=== PATIENT | female | born 1970 | race Caucasian/White ===

== ENCOUNTER 2022-12-06 12:45 | Emergency (ER) | payer SELFPAY ==
[2022-12-06 12:52] VITALS: BP 147/108; PULSE 78; RESP 16; TEMP 36.4; O2SAT 100; BMI 40.4
--- NOTE | 2022-12-06 13:04 | ED.SKABFB1 ---
HPI - Skin/Abscess/Foreign Bdy General Chief complaint: Skin/Abscess/Foreign Body Stated complaint: LUMP BEHIND EAR Time Seen by Provider: 12/06/22 13:03 Source: patient Mode of arrival: walk-in Limitations: no limitations History of Present Illness HPI narrative: Patient presents to emergency department complaining of right ear lump. She states there was a lump behind her ear that began on Tuesday. She states this is becoming more tender and larger. Patient denies any ear pain or any upper respiratory infection symptoms. 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 She denies any fever, headaches, chills, or sore throat. She has not applied anything to it or taken anything. Related Data Home Medications Medication Instructions Recorded Confirmed gabapentin 600 mg tablet 600 mg PO TID 12/06/22 12/06/22 levothyroxine 137 mcg tablet 137 mcg PO DAILY 12/06/22 12/06/22 (Levo-T) omeprazole 40 mg capsule,delayed 40 mg PO DAILY 12/06/22 12/06/22 release tizanidine 4 mg capsule 4 mg PO Q8H 12/06/22 12/06/22 Previous Rx's Medication Instructions Recorded mupirocin 2 % topical ointment 1 applic topical TID #15 grams 12/06/22 sulfamethoxazole 800 1 tab PO BID 7 days #14 tabs 12/06/22 mg-trimethoprim 160 mg tablet (Bactrim DS) Allergies Allergy/AdvReac Type Severity Reaction Status Date / Time Penicillins Allergy Severe Hives Verified 12/06/22 12:52 Review of Systems ROS Status of ROS 10 or more systems reviewed and unremarkable except as noted in history and below Exam Narrative Exam Narrative: Nurses notes and vital signs reviewed and patient is not hypoxic. General: Nontoxic, Well-appearing and in no apparent distress. Skin: Warm, dry, no pallor noted. No Rash Head: Normocephalic, atraumatic. Neck: Supple, non-tender. Eye: Pupils are equal, round and EOMI. No scleral icterus. Ears, Nose, Mouth, and Throat: TM clear, no posterior oropharynx erythema or nasal mucosal hypertrophy, uvula is mid-line Oral mucosa is moist, Right 4 mm pustule to the posterior auricle. There is no mastoid tenderness. No signs of cellulitis. Cardiovascular: Regular Rate and Rhythm without murmur, gallop or rub. Respiratory: No accessory muscle use or respiratory distress. Lungs are clear to auscultation, no wheezing, rales or rhonchi Chest Wall: no tenderness Back: No midline thoracic or lumbar vertebral tenderness. No CVA tenderness Musculoskeletal: normal ROM, no calf or popliteal tenderness, no lower extremity edema/swelling GI: Abdomen is soft, non-distended. Normal bowel sounds. No masses appreciated. No tenderness to palpation. No rebound, guarding, or rigidity noted. Neurological: A&O x4. No cranial nerve dysfunction observed. No truncal ataxia. Moves all extremities. Sensation intact. Psychiatric: Cooperative and interactive. Normal mood and affect. Constitutional Vital Signs - 24 hr 12/06/22 12:52 Temperature 97.5 F L Pulse Rate [Monitor] 78 Respiratory Rate 16 Blood Pressure [Left Arm] 147/108 H Pulse Oximetry 100 Oxygen Delivery Method Room Air Course Vital Signs Vital signs: Vital Signs Temperature 97.5 F L 12/06/22 12:52 Pulse Rate 78 12/06/22 12:52 Respiratory Rate 16 12/06/22 12:52 Blood Pressure 147/108 H 12/06/22 12:52 Pulse Oximetry 100 12/06/22 12:52 Oxygen Delivery Method Room Air 12/06/22 12:52 Temperature 97.5 F L 12/06/22 12:52 Pulse Rate 78 12/06/22 12:52 Respiratory Rate 16 12/06/22 12:52 Blood Pressure 147/108 H 12/06/22 12:52 Pulse Oximetry 100 12/06/22 12:52 Oxygen Delivery Method Room Air 12/06/22 12:52 MDM - Skin/Abscess/Foreign Bdy MDM Narrative Medical decision making narrative: She was advised to do warm compresses to the area. Apply mupirocin and given a prescription for Bactrim. I answered all questions. Discussed discharge instructions including standard anticipatory guidance and what should prompt a return to the emergency department, including if they get worse are not getting better or develops any new or concerning symptoms. I've given them specific time frame in which to follow-up, and who to follow-up with. The patient demonstrates understanding. Patient is nontoxic and stable for discharge with outpatient follow-up. This note was created with the assistance of a speech recognition program. Although the intention is to generate documents that actually reflects the content of the visit, no guarantees can be provided that every mistake has been identified and corrected by editing. Differential Diagnosis Differential diagnosis: Likely abscess of skin or subcutaneous tissue and cellulitis Discharge Plan Discharge Chief Complaint: Skin/Abscess/Foreign Body Clinical Impression: Pustule Patient Disposition: Home, Self-Care Time of Disposition Decision: 13:11 Condition: Good Mode of Transportation: Private Vehicle Prescriptions / Home Meds: New mupirocin 2 % ointment 1 applic topical TID Qty: 15 0RF sulfamethoxazole-trimethoprim [Bactrim DS] 800-160 mg tablet 1 tab PO BID 7 Days Qty: 14 0RF No Action omeprazole 40 mg capsule,delayed release(DR/EC) 40 mg PO DAILY levothyroxine [Levo-T] 137 mcg tablet 137 mcg PO DAILY tizanidine 4 mg capsule 4 mg PO Q8H gabapentin 600 mg tablet 600 mg PO TID Instructions: Folliculitis (ED) Stand Alone Forms: Portal Instructions Referrals: Bartolo Kwan MD [Primary Care Provider] - 1 week Discharge Date/Time: 12/06/22 13:25
== END 2022-12-06 13:25 | disposition home or self-care (01) ==
PROVIDERS: Emergency Provider Emergency Medicine; PCP Family Medicine
DX: L08.9 Local infection of the skin and subcutaneous tissue, unspecified (principal); Z79.899 Other long term (current) drug therapy; Z79.890 Hormone replacement therapy
CPT/HCPCS: 99283

== ENCOUNTER 2023-05-13 08:00 | Outpatient (OUT) | payer BC, SELFPAY ==
[2023-05-13 08:28] LABS: Basophils Absolute Auto 0.1 10^3/uL (0.0-0.1); Basophils Percent Auto 0.6 % (0.2-2.0); Eosinophils Absolute Auto 0.1 10^3/uL (0.0-0.7); Eosinophils Percent Auto 1.2 % (0.9-7.0); Hematocrit 43.9 % (36.0-48.0); Hemoglobin 14.1 g/dL (12.0-16.0); Immature Granulocytes Abs Auto 0.02 10^3/uL (0.00-0.03); Immature Granulocytes Pct Auto 0.2 % (0.0-0.5); Lymphocytes Percent Auto 30.7 % (20.5-60.0); Mean Corpuscular HGB Conc 32.1 g/dL (29.9-35.2); Mean Corpuscular Hemoglobin 31.1 pg (26.7-34.0); Mean Corpuscular Volume 96.9 fL (81.0-99.0); Mean Platelet Volume 9.7 fL (9.5-13.5); Monocytes Absolute Auto 0.7 10^3/uL (0.3-0.8); Monocytes Percent Auto 6.9 % (1.7-12.0); Neutrophils Absolute Auto 5.9 10^3/uL (1.4-6.5); Neutrophils Percent Auto 60.4 % (43.0-75.0); Platelet Count 298 10^3/uL (150-450); Red Blood Count 4.53 10^6/uL (4.20-5.40); Red Cell Distribution Width 14.5 % (11.0-15.0); White Blood Count 9.8 10^3/uL (4.0-11.0)
[2023-05-13 09:44] LABS: Alanine Aminotransferase 19 U/L (14-59); Albumin Globulin Ratio 0.9; Albumin Level 3.4 g/dL (3.4-5.0); Alkaline Phosphatase 78 U/L (46-116); Anion Gap 15.2; Aspartate Amino Transferase 9 U/L (15-37); BUN Creatinine Ratio 22.7; Bilirubin Total 0.2 mg/dL (0.2-1.0); Calcium 8.9 mg/dL (8.5-10.1); Carbon Dioxide 27.9 mmol/L (21.0-32.0); Chloride 104 mmol/L (98-107); Chol HDL Ratio 6.3; Cholesterol 289 mg/dL (<=200); Estimated GFR (African America >60 (>=60); Estimated GFR (Non-African Ame >60 (>=60); Globulin 3.7 g/dL; Glucose 97 mg/dL (74-106); HDL Cholesterol 46 mg/dL (40-60); Potassium 4.1 mmol/L (3.5-5.1); Sodium 143 mmol/L (136-145); Thyroid Stimulating Hormone 12.877 uIU/mL (0.358-3.740); Total Protein 7.1 g/dL (6.4-8.2); Triglycerides 255 mg/dL (<=150)
== END 2023-05-13 08:01 | disposition home or self-care (01) ==
LOC: LAB 08:00
PROVIDERS: PCP Nurse Practitioner; Visit Provider Nurse Practitioner
DX: E03.9 Hypothyroidism, unspecified (principal); R25.2 Cramp and spasm
CPT/HCPCS: 36415; 80053; 80061; 82728; 83540; 84439; 84443; 85025

== ENCOUNTER 2023-09-05 08:42 | Outpatient (OUT) | payer OTHER, SELFPAY ==
--- OUTSIDE RECORDS SUMMARY | 2023-09-05 08:51 | XMS_ITS | CCD ---
Author Name Unknown Address [address] [place] [address] Organization [facility] Care Team Providers Care Nursing Aide Name Role Phone Unavailable Primary Care Provider Unavailabl e AICHHOLZ, CENTRAL PROCESSING TECH WHIT Consulting Unavailable AICHHOLZ, CENTRAL PROCESSING TECH WHIT Attending Unavailable AICHHOLZ, CENTRAL PROCESSING TECH WHIT Admitting Unavailable AICHHOLZ, CENTRAL PROCESSING TECH WHIT Primary Care Unavailable AICHHOLZ, CENTRAL PROCESSING TECH WHIT Admitting Unavailable AICHHOLZ, CENTRAL PROCESSING TECH WHIT Primary Care Unavailable AICHHOLZ, CENTRAL PROCESSING TECH WHIT Consulting Unavailable AICHHOLZ, CENTRAL PROCESSING TECH WHIT Attending Unavailable AICHHOLZ, CENTRAL PROCESSING TECH WHIT Admitting Unavailable AICHHOLZ, CENTRAL PROCESSING TECH WHIT Primary Care Unavailable AICHHOLZ, CENTRAL PROCESSING TECH WHIT Attending Unavailable DR NAOMIE THEODORE V Consulting Unavailable AICHHOLZ, CENTRAL PROCESSING TECH WHIT Consulting Unavailable DR TANMAY BLANC Admitting Unavailable AICHHOLZ, CENTRAL PROCESSING TECH WHIT Primary Care Unavailable DR TANMAY BLANC Attending Unavailable AICHHOLZ, CENTRAL PROCESSING TECH WHIT Admitting Unavailable AICHHOLZ, CENTRAL PROCESSING TECH WHIT Primary Care Unavailable AICHHOLZ, CENTRAL PROCESSING TECH WHIT Attending Unavailable AICHHOLZ, CENTRAL PROCESSING TECH WHIT Primary Care Unavailable DR SILVINA SMITH Attending Unavailable DR SILVINA SMITH Admitting Unavailable DR NAOMIE THEODORE V Consulting Unavailable DR SILVINA SMITH Consulting Unavailable HEIDI MEJIAS Consulting Unavailable Naomie Velasquez Consulting Unavailable SISTER, TE Consulting Unavailable AICHHOLZ, CENTRAL PROCESSING TECH WHIT Primary Care Unavailable ONEIL LOPEZ Consulting Unavailable ONEIL LOPEZ Attending Unavailable ONEIL LOPEZ Admitting Unavailable Naomie Velasquez Consulting Unavailable DR MEY FARNSWORTH Attending Unavailable DR MEY FARNSWORTH Admitting Unavailable AICHHOLZ, CENTRAL PROCESSING TECH WHIT Primary Care Unavailable DR MEY FARNSWORTH Consulting Unavailable AICHHOLZ, CENTRAL PROCESSING TECH WHIT Primary Care Unavailable DR LANDEN GONZALEZ Consulting Unavailable ANGELA, DIOGENES Attending Unavailable ANGELA, DIOGENES Admitting Unavailable ZIA DESAI Consulting Unavailable AICHHOLZ, CENTRAL PROCESSING TECH WHIT Admitting Unavailable AICHHOLZ, CENTRAL PROCESSING TECH WHIT Consulting Unavailable AICHHOLZ, CENTRAL PROCESSING TECH WHIT Attending Unavailable MACK GUAMAN Primary Care Unavailable Naomie Velasquez Unavailable AICHHOLZ, CENTRAL PROCESSING TECH WHIT Primary Care Unavailable LING GAMING Attending Unavailable LING GAMING Admitting Unavailable DR ZACH PEREZ Consulting Unavailable LING GAMING Consulting Unavailable AICHHOLZ, CENTRAL PROCESSING TECH WHIT Admitting Unavailable AICHHOLZ, CENTRAL PROCESSING TECH WHIT Primary Care Unavailable AICHHOLZ, CENTRAL PROCESSING TECH WHIT Attending Unavailable AICHHOLZ, CENTRAL PROCESSING TECH WHIT Primary Care Unavailable AICHHOLZ, CENTRAL PROCESSING TECH WHIT Admitting Unavailable AICHHOLZ, CENTRAL PROCESSING TECH WHIT Consulting Unavailable AICHHOLZ, CENTRAL PROCESSING TECH WHIT Attending Unavailable Unavailable Primary Care Provider Unavailnia e AICHHOLZ, WHIT J. Primary Care Unavailable ELGAFY, DILLAN K Referring Unavailable ELGAFY, DILLAN Referring Unavailable ELGAFY, DILLAN Attending Unavailable SELF, REFERRED Referring Unavailable ELGAFY, DILLAN Attending Unavailable ELGAFY, DILLAN Referring Unavailable ELGAFY, DILLAN Attending Unavailable ELGAFY, DILLAN Attending Unavailable ELGAFY, DILLAN Attending Unavailable ELGAFY, DILLAN Attending Unavailable ELGAFY, DILLAN Admitting Unavailable ELGAFY, DILLAN Attending Unavailable ELGAFY, DILLAN Attending Unavailable REKHA BEY Attending Unavailable ELGAFY, DILLAN Attending Unavailable SELF, REFERRED Referring Unavailable ELGAFY, DILLAN Referring Unavailable ELGAFY, DILLAN Referring Unavailable AICHHOLZ, WHIT Attending Unavailable Allergies Allergy Classification Reported Allergen(s) Allergy Type Date of Onset Reaction(s) Facility (3 sources) Penicillins; Translations: [PENICILLINS] Drug Allergy 04-11-2013 [facility] (11 sources) Penicillins Drug Allergy 04-11-2013 [facility] (2 sources) Penicillins Drug allergy (disorder) 04-11-2013 [facility] (1 source) Chlorhexidine; Translations: [CHLORHEXIDINE GLUCONATE] Drug Allergy 04-21-2022 [facility] Repository Medications Completed/Discontinued Medications Medication Drug Class(es) Dates Sig (Normalized) Sig (Original) [id number] 200 actuat albuterol 0.09 mg/actuat metered dose inhaler (12 sources) beta2-Adrenergic Agonist Start: 11-10-2021 take 2 puff(s) by mouth every four to six hours as needed for wheezing VENTOLIN HFA 90 mcg/actuation inhaler INHALE 2 PUFFS BY MOUTH EVERY 4-6 HOURS NEEDED FOR WHEEZING OR SHORTNESS OF BREATH 0 11/10/2021 Active Comment on above: INHALE 2 PUFFS BY MO UT EVERY 4-6 HOURS NEEDED FOR WHEEZING OR SHORTNESS OF BREATH betamethasone 0.5 mg/ml / clotrimazole 10 mg/ml topical cream (12 sources) Azole Antifungal, Corticosteroid Start: 11-19-2021 clotrimazole-betame thasone (LOTRISONE) cream APPLY ONE APPLICATION TO AFFECTED AREA TWICE A DAY TO FOOT FOR 3 WEEKS 0 11/19/2021 Active Comment on above: APPLY ONE APPLICATIO N TO AFFECTED AREA TWICE A DAY TO FOOT FOR 3 WEEKS cetirizine hydrochloride 10 mg oral tablet (12 sources) Histamine-1 Receptor Antagonist Start: 11-26-2021 take 1 tablet by mouth once daily cetirizine (ZYRTEC) 10 mg tablet Take 10 mg by mouth once daily. 0 11/26/2021 Active Comment on above: Take 10 mg by mouth once daily. ciclopirox 80 mg/ml topical solution (12 sources) Start: 10-22-2021 Ciclopirox (LOPROX) 8 % solution Apply jublia TO affected toenails ONCE daily FOR 48 WEEKS 0 10/22/2021 Active Comment on above: Apply jublia TO affe cted toenails ONCE daily FOR 48 WEEKS cyclobenzaprine hydrochloride 10 mg oral tablet (1 source) Muscle Relaxant End: 12-03-2021 cyclobenzaprine (FLEXERIL) 10 mg tablet Take 10 mg by mouth. 0 12/03/2021 Discontinued Comment on above: Take 10 mg by mouth. gabapentin 300 mg oral capsule (7 sources) Anti-epileptic Agent Start: 01-14-2022 End: 02-14-2022 gabapentin (NEURONTIN) 300 mg capsule Take one capsule at bedtime for 5 days. Then take one capsule twice a day for 5 days. Then take one capsule three times a day. 90 capsule 1 01/14/2022 Active End: 12-03-2021 gabapentin (NEURONTIN) 100 m g capsule Take 100 mg by mouth. 0 12/03/2021 Discontinued Comment on above: Take 100 mg by mouth . Take one capsule at bedtime for 5 days. Then take one capsule twice a day for 5 days. Then take one capsule three times a day. levothyroxine sodium 0.15 mg oral capsule (13 sources) l-Thyroxine Start: 08-17-2021 levothyroxine 150 mcg cap End: 12-03-2021 levothyroxine (SYNTHROID) 11 2 mcg tablet Take 112 mcg by mouth. 0 12/03/2021 Discontinued Comment on above: Take 112 mcg by mout h. liothyronine sodium 0.005 mg oral tablet (1 source) l-Triiodothyronine End: 12-04-19 liothyronine (CYTOMEL) 5 mcg tablet Take 5 mcg by mouth. 0 12/03/2021 Discontinued Comment on above: Take 5 mcg by mouth. meloxicam 15 mg oral tablet (12 sources) Nonsteroidal Anti-inflammatory Drug Start: 11-20-19 take 1 tablet by mouth once daily meloxicam (MOBIC) 15 mg tablet Take 15 mg by mouth once daily. 0 11/19/2021 Active Comment on above: Take 15 mg by mouth once daily. omeprazole 40 mg delayed release oral capsule (12 sources) Proton Pump Inhibitor omeprazole (PRILOSEC) 40 mg capsule Take 40 mg by mouth. 0 Active Comment on above: Take 40 mg by mouth. tiZANidine 4 mg oral tablet (12 sources) Central alpha-2 Adrenergic Agonist Start: 11-11-19 End: 03-23-20 take 1 tablet by mouth once daily at bedtime tiZANidine (ZANAFLEX) 4 mg tablet Take 1 tablet by mouth daily at bedtime. 30 tablet 2 12/23/2021 03/23/2022 Comment on above: TAKE 1 TABLET BY ISAAK TH AT BEDTIME, MAY CAUSE DROWSINESS Take 1 tablet by isaak th daily at bedtime. Problems Active Problems Problem Classification Problem Date Documented Date Episodic/Chronic Chronic obstructive pulmonary disease and bronchiectasis (1 source) Chronic obstructive pulmonary disease with (acute) exacerbation; Translations: [COPD WITH ACUTE EXACERBATION] Onset: 01-18-2022 Chronic Diabetes mellitus without complication (1 source) Hyperglycemia; Translations: [Hyperglycemia, unspecified] Episodic Genitourinary symptoms and ill-defined conditions (1 source) Unspecified urinary incontinence; Translations: [UNSPECIFIED URINARY INCONTINENCE] Onset: 02-08-2022 Chronic Immunizations and screening for infectious disease (1 source) Encounter for screening for other infectious and parasitic diseases; Translations: [ENC SCREENING OTH INF PARASITIC DZ] Onset: 07-19-2022 Episodic Nutritional deficiencies (2 sources) Vitamin D deficiency, unspecified; Translations: [Vitamin D deficiency, unspecified] Onset: 04-29-2022 Chronic Other aftercare (1 source) 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; Translations: [OTH CAN CUTTER CURRENT DRUG THERAPY] Onset: 05-31-2022 Episodic Other nervous system disorders (2 sources) Other chronic pain; Translations: [Other chronic pain] Onset: 04-29-2022 Chronic Residual codes; unclassified (1 source) Acquired absence of both cervix and uterus; Translations: [ACQUIRED ABSENCE BOTH CERVIX AND UTERUS] Onset: 05-31-2022 Episodic Spondylosis; intervertebral disc disorders; other back problems (20 sources) Degeneration of lumbosacral intervertebral disc; Translations: [Other intervertebral disc degeneration, lumbosacral region] Onset: 12-14-2021 Chronic Substance-related disorders (1 source) Nicotine dependence, cigarettes, uncomplicated; Translations: [NICOTINE DEPEND CIGARETTES UNCOMP] Onset: 05-31-2022 Chronic Thyroid disorders (5 sources) Hypothyroidism, unspecified; Translations: [HYPOTHYROIDISM UNSPECIFIED] Onset: 03-08-2022 Chronic Unclassified (4 sources) CONTACT W/AND (SUSP) EXPOS COVID-19; Translations: [CONTACT W/AND (SUSP) EXPOS COVID-19] Onset: 02-08-2022 Unclassified (2 sources) LOW BACK PAIN, UNSPECIFIED; Translations: [LOW BACK PAIN, UNSPECIFIED] Onset: 02-08-2022 Unclassified (1 source) COUGH, UNSPECIFIED; Translations: [COUGH, UNSPECIFIED] Onset: 01-18-2022 Unclassified (2 sources) Post-op; Translations: [Post-op] Onset: 05-19-2022 Unclassified (1 source) Low back pain, unspecified; Translations: [Low back pain, unspecified] Onset: 04-29-2022 Viral infection (4 sources) COVID-19; Translations: [COVID-19] Onset: 07-23-2021 Past or Other Problems Problem Classification Problem Date Documented Date Episodic/Chronic Complications of surgical procedures or medical care (7 sources) Disruption of wound, unspecified, initial encounter; Translations: [Pseudarthrosis after fusion or arthrodesis] Onset: 05-30-2022 Episodic Other acquired deformities (2 sources) Spondylolisthesis, thoracolumbar region; Translations: [Spondylolisthesis, thoracolumbar region] Onset: 07-08-2022 Episodic Other acquired deformities (2 sources) Spondylolisthesis, lumbar region; Translations: [Spondylolisthesis, lumbar region] Onset: 04-21-2022 Episodic Other acquired deformities (2 sources) Spondylolisthesis, lumbosacral region; Translations: [Spondylolisthesis, lumbosacral region] Onset: 04-07-2022 Episodic Other connective tissue disease (12 sources) History of cervical spine fusion; Translations: [Arthrodesis status] Onset: 12-14-2021 Episodic Other connective tissue disease (4 sources) Pain in left foot; Translations: [PAIN IN LEFT FOOT] Onset: 11-19-2021 Episodic Other connective tissue disease (2 sources) Arthrodesis status; Translations: [Arthrodesis status] Onset: 04-29-2022 Episodic Other lower respiratory disease (3 sources) Shortness of breath; Translations: [SHORTNESS OF BREATH] Onset: 01-14-2022 Episodic Other nervous system disorders (2 sources) Other acute postprocedural pain; Translations: [Other acute postprocedural pain] Onset: 04-29-2022 Episodic Screening and history of mental health and substance abuse codes (1 source) Personal history of nicotine dependence; Translations: [PERSONAL HISTORY OF NICOTINE DEPEND] Onset: 02-08-2022 Episodic Spondylosis; intervertebral disc disorders; other back problems (20 sources) Lumbar radiculopathy; Translations: [Radiculopathy, lumbar region] Onset: 12-14-2021 Episodic Unclassified (1 source) CONTACT W/AND (SUSP) EXPOS COVID-19; Translations: [CONTACT W/AND (SUSP) EXPOS COVID-19] Onset: 07-15-2022 Unclassified (2 sources) LOW BACK PAIN, UNSPECIFIED; Translations: [LOW BACK PAIN, UNSPECIFIED] Onset: 02-03-2022 Results Test Name Value Interpretation Reference Range Facility Follow-Upon 03-10-2023 Follow-Up [id number] PhilipNato 1970 F Date Provider Department Center 03/10/2023 DILLAN CRANE NWGustavo ORTHO [facility] Family History Family history unknown: Yes Level of Service:29329 AL OFFICE/OUTPATIENT ESTABLISHED MOD MDM 30-39 MIN Normal [facility] CT CERVICAL SPINE WO CONTRAS Ton 02-14-2023 CT CERVICAL SPINE WO CONTRAST EXAMINATION: CT OF THE CERVICAL SPINE WITHOUT CONTRAST 02/10/2023 3:33 pm TECHNIQUE: CT of the cervical spine was performed without the administration of intravenous contrast. Multiplanar reformatted images are provided for review. Automated exposure control, iterative reconstruction, and/or weight based adjustment of the mA/kV was utilized to reduce the radiation dose to as low as reasonably achievable. COMPARISON: None. HISTORY: ORDERING SYSTEM PROVIDED HISTORY: Pseudarthrosis after fusion or arthrodesis FINDINGS: Anterior cervical fusion from C5 through C7. Loss of the cervical lordosis. No fracture or subluxation. Facets are normally aligned. Odontoid is intact. Spinous processes are intact. No prevertebral soft tissue swelling. Lung apices are clear. Skull base is intact Craniocervical junction is intact. C1-2 is unremarkable C 2-3 facet arthropathy more prominent on the left. Mild posterior foraminal narrowing C3-4 unremarkable C4-5 unremarkable C5-6 anterior fusion. No visualized motion. C6-7 anterior fusion. No visualized motion. Mild facet arthropathy facets are not fused. Intervertebral prosthesis. C7-T1 unremarkable IMPRESSION: Anterior cervical fusion from C5 through C7. No acute fracture Interpreted by: Maddie Simpson MD Signed by: Maddie Simpson MD 02/13/23 Final result Normal [facility] Refillon 11-07-2022 Refill [id number] Nato Short 1970 F Date Provider Department Center 11/07/2022 DILLAN CRANE ORTHO [facility] Family History Family history unknown: Yes Reason for Visit and Comments: Med Refill [[id number]] [facility] 11-05-2022 29 Addended by: MASON DOUGLAS on: 11/05/2022 09:46 AM Modules accepted: Orders [facility] 36on 11-01-2022 36 Requesting refill of Fioricet... This is not something you typically prescribe, are you okay to continue filling or refer to PCP? She is taking for ongoing headaches. Last visit 10/07/22 [facility] Refillon 10-31-2022 Refill [id number] Nato Short 1970 F Date Provider Department Center 10/31/2022 DILLAN CRANE MP [facility] Family History Family history unknown: Yes Reason for Visit and Comments: Med Refill [[id number]] [facility] 3610-22-2022 36 Please advise refill request. [facility] Refillon 10-22-2022 Refill [id number] Nato Short 1970 F Date Provider Department Center 10/22/2022 DILLAN CRANE MP [facility] Family History Family history unknown: Yes Reason for Visit and Comments: Med Refill [[id number]] [facility] Patient Messageon 10-10-2022 Patient Message [id number] Nato Short 1970 F Date Provider Department Center 10/10/2022 DILLAN CRANE [facility] Family History Family history unknown: Yes [facility] Refillon 10-09-2022 Refill [id number] Nato Short 1970 F Date Provider Department Center 10/09/2022 DILLAN CRANE MP [facility] Family History Family history unknown: Yes Reason for Visit and Comments: Med Refill [[id number]] [facility] 36on 10-08-2022 36 Fioricet ordered to patient's pharmacy and she was informed. [facility] 36on 10-07-2022 36 Pt was seen in [facility] today and is awaiting CT for further plan. She would like to know if there is anything that can be prescribed for the headaches? Please advise. [facility] Follow-Upon 10-07-2022 Follow-Up [id number] Nato Short 1970 F Date Provider Department Center 10/07/2022 DILLAN CRANE [facility] Family History Family history unknown: Yes Level of Service:54982 AL OFFICE/OUTPATIENT ESTABLISHED LOW MDM 20-29 MIN [facility] 36on 09-20-2022 36 Please advise refill request. [facility] Refillon 09-20-2022 Refill [id number] Nato Short 1970 F Date Provider Department Center 09/20/2022 DILLAN CRANE [facility] Family History Family history unknown: Yes Reason for Visit and Comments: Med Refill [[id number]] [facility] 36on 08-23-2022 36 Please advise refill request. [facility] Refillon 08-23-2022 Refill [id number] Nato Short 1970 F Date Provider Department Center 08/23/2022 DILLAN CRANE MP ORTHO [facility] Family History Family history unknown: Yes Reason for Visit and Comments: Med Refill [[id number]] [facility] Letter (Out)on 08-09-2022 Letter (Out) [id number] Nato Short 1970 F Date Provider Department Center 08/09/2022 ORA ARIAS MP ORTHO [facility] Family History Family history unknown: Yes [facility] 36on 08-06-2022 36 Please advise refill request. [facility] Refillon 08-06-2022 Refill [id number] Nato Short 1970 F Date Provider Department Center 08/06/2022 DILLAN CRANE MP [facility]TH[facility] Family History Family history unknown: Yes Reason for Visit and Comments: Med Refill [[id number]] [facility] 36on 07-29-2022 36 Letter sent through [employer] to patient and patient was informed. [facility] 36on 07-28-2022 36 Ok to write new taisha er, per Dr. Newby. [facility] 36 Pt called stating th at she is supposed to go back to work tomorrow. However, pt states that her employer changed her to work on days working 6 hours 5 days per week, which is 30 hours. Originally she was supposed to work 6 hours her normal 3 days per week. Can this be changed so that she can gradually start back to work slowly? [facility] Covid-19 PCR ([facility])on 06-27 SARS-CoV-2 (COVID-19) RNA RENÉ+probe Ql (Unsp spec) Not detected Normal NOT DETECTED [facility] Comment on above: Result Comment: This test is not yet approved or cleared by the [place] FDA. When there are no FDA-approved or cleared tests available, and other criteria are met, FDA can make tests available under an emergency access mechanism called an Emergency Use Authorization (EUA). The EUA for this test is supported by the Bronc Buster of Health and Human Service's (HHS's) declaration that circumstances exist to justify the emergency use of in vitro diagnostics for the detection and/or diagnosis of the virus that causes COVID-19. This EUA will remain in effect (meaning this test can be used) for the duration of the COVID-19 declaration justifying emergency of IVDs, unless it is terminated or revoked by FDA (after which the test may no longer be used). When diagnostic testing is negative, the possibility of a false negative should be considered in the context of a patient's recent exposures and the presence of clinical signs and symptoms consistent with SARS-CoV-2. Performed By: #### [facility] #### [facility] [address] [place] [address] Dr. Radha Suarez INFLUENZA A AND B AGon 07-15 INFLUANEGH SEE BELOW Normal [facility] Comment on above: Result Comment: Nega tive for Flu A protein angiten. Infection due to Flu A cannot be ruled out. Flu A angiten in the sample may be below the detection limit of the test. Performed By: #### C [facility] #### [facility] [address] [place] [address] Dr. Radha Suarez [facility] SEE BELOW Normal [facility] Comment on above: Result Comment: Nega tive for Flu B protein antigen. Infection due to Flu B cannot be ruled out. Flu B antigen in the sample may be below the detection limit of the test. Performed By: #### C [facility] #### [facility] [address] [place] [address] Dr. Radha Suarez INFLUENZA A AG Negative Normal NEGATIVE SEE COMMENT [facility] Comment on above: Performed By: #### C [facility] #### [facility] [address] [place] [address] Dr. Radha Suarez INFLUENZA B AG Negative Normal NEGATIVE SEE COMMENT [facility] Comment on above: Performed By: #### C [facility] #### [facility] [address] [place] [address] Dr. Radha Suarez Office Visiton 07-08-2022 Follow-up visit [id number] Nato Short 1970 F Date Provider Department Center 07/08/2022 DILLAN CRANE Gustavo RAMIRES [facility] Family History Family history unknown: Yes Level of Service:66792 AL POSTOP FOLLOW UP VISIT RELATED TO ORIGINAL PX [facility] 36on 07-05-2022 36 Please advise refill request. [facility] Refillon 07-05-2022 Refill [id number] Nato Short 1970 F Date Provider Department Center 07/05/2022 DILLAN CRANE [facility] Family History Family history unknown: Yes Reason for Visit and Comments: Med Refill [[id number]] [facility] 36on 06-25-2022 36 Pt was informed. She will call the pharmacy that this was already refilled and most likely on hold. [facility] 36 Patient just filled 2 weeks ago same prescription [facility] 36 Please advise refill request. [facility] Follow-Upon 06-16-2022 Follow-Up [id number] Nato Short 1970 F Date Provider Department [place] 06/16/2022 REKHA SOMERS MP ORTHO [facility] Family History Family history unknown: Yes Level of Service:03746 AL POSTOP FOLLOW UP VISIT RELATED TO ORIGINAL PX Reason for Visit and Comments: Post-op [483] [facility] 36on 06-12-2022 36 Please advise refill request. [facility] Refillon 06-12-2022 Refill [id number] Nato Short 1970 F Date Provider Department [place] 06/12/2022 DILLAN CRANE MP ORTHO [facility] No family history on file Reason for Visit and Comments: Med Refill [[id number]] [facility] 36on 06-09-2022 36 Pt called with yeast infection with taking the antibiotics for postsurgical wound. Diflucan ordered to patient's pharmacy, per Dr. Newby. Pt was informed. [facility] Refillon 06-07-2022 Refill [id number] Nato Short 1970 F Date Provider Department [place] 06/07/2022 DILLAN CRANE MP ORTHO [facility] No family history on file Reason for Visit and Comments: Med Refill [[id number]] [facility] Office Visiton 06-04-2022 Follow-up visit [id number] Nato Short 1970 F Date Provider Department [place] 06/04/2022 DILLAN CRANE MP ORTHO [facility] No family history on file Level of Service:44381 AL POSTOP FOLLOW UP VISIT RELATED TO ORIGINAL PX Reason for Visit and Comments: Follow-up [[id number]] - Wound check [facility] CULTURE WOUNDon 06-01-2022 CULTURE WOUND Isolate 1 Pseudomonas aeruginosa Light growth of ORGANISM 1 Pseudomonas aeruginosa ANTIBIOTIC M.I.C RX STATUS Piperacillin/Tazobactam <=4 S F Ceftazidime <=1 S F Imipenem 1 S F Amikacin 4 S F Gentamicin <=1 S F Tobramycin <=1 S F Ciprofloxacin <=0.25 S F Levofloxacin <=0.12 S F Normal [facility] Comment on above: Performed By: #### [facility] #### [facility] [address] [address] [address] Radha Suarez 36on 05-31-2022 36 Please advise refill request. [facility] Refillon 05-31-2022 Refill [id number] Nato Short 1970 F Date Provider Department [place] 05/31/2022 DILLAN CRANE MP ORTHO MPORTHO No family history on file Reason for Visit and Comments: Med Refill [[id number]] [facility] 36on 05-25-2022 36 Please advise refill request. [facility] Refillon 05-25-2022 Refill [id number] Nato Short 1970 F Date Provider Department [place] 05/25/2022 DILLAN CRANE MP ORTHO MPORTHO No family history on file Reason for Visit and Comments: Med Refill [[id number]] [facility] Office Visiton 05-19-2022 Follow-up visit [id number] Nato Short 1970 F Date Provider Department [place] 05/19/2022 DILLAN CRANE MP ORTHO MPORTHO No family history on file Level of Service:08317 AL POSTOP FOLLOW UP VISIT RELATED TO ORIGINAL PX Reason for Visit and Comments: Post-op [483] - L4-5 decompression /fusion [facility] 36on 05-17-2022 36 Duplicate request. [facility] 36 Please advise refill request. [facility] 36 Please advise refill request. [facility] Refillon 05-17-2022 Refill [id number] Nato Short 1970 F Date Provider Department [place] 05/17/2022 DILLAN CRANE MP ORTHO MPORTHO No family history on file Reason for Visit and Comments: Med Refill [[id number]] [facility] Refillon 05-15-2022 Refill [id number] PhilipNato neumann 1970 Date Provider Department Center 05/15/2022 DILLAN CRANE MP ORTHO MPORTHO No family history on file Reason for Visit and Comments: Med Refill [[id number]] [facility] 36on 05-06-2022 36 Pt may run out of medications over the weekend. Please advise refill request. [facility] Refill [id number] PhilipNato neumann 1970 Date Provider Department [place] 05/06/2022 DILLAN CRANE MP MPORTHO No family history on file Reason for Visit and Comments: Med Refill [[id number]] [facility] DSon 05-04-2022 DS Admission Admitted 04/29/2022 for Spondylolisthesis L4-5 and spinal stenosis Discharge Diagnosis Spondylolisthesis L4-5 and spinal stenosis Discharge Disposition Home or Self Care Discharge Medications Your medication list START taking these medications Instructions Last Dose Given Next Dose Due calcium citrate 200 mg (950 mg) tablet Commonly known as: Calcitrate Take 1 tablet (200 mg) by mouth in the morning. cholecalciferol 25 MCG (1000 units) tablet Commonly known as: Vitamin D-3 Take 2 tablets (2,000 Units) by mouth in the morning. ergocalciferol 1.25 MG (29213 Units) capsule Commonly known as: Vitamin D-2 Take 1 capsule (50,000 Units) by mouth 1 (one) time per week. ondansetron ODT 4 mg disintegrating tablet Commonly known as: Zofran-ODT Take 1 tablet (4 mg) by mouth every 8 (eight) hours if needed for nausea or vomiting. oxyCODONE-acetaminophen 5-325 mg tablet Commonly known as: Percocet Take 1 tablet by mouth every 6 (six) hours if needed for moderate pain (4-7 pain score) for up to 7 days. sennosides-docusate sodium 8.6-50 mg tablet Commonly known as: Jenny-Colace Take 2 tablets by mouth at bedtime. CONTINUE taking these medications Instructions Last Dose Given Next Dose Due albuterol 90 mcg/actuation inhaler clotrimazole-betamethas one cream Commonly known as: Lotrisone DULoxetine [address] capsule Commonly known as: Cymbalta esomeprazole [address] capsule Commonly known as: NexIUM fluticasone 50 mcg/actuation nasal spray Commonly known as: Flonase gabapentin 600 mg tablet Commonly known as: Neurontin TAKE 1 TABLET BY MOUTH IN THE MORNING, 1 TABLET AT NOON, AND 1 TABLET AT BEDTIME levothyroxine 137 mcg tablet Commonly known as: Synthroid, Levoxyl meloxicam 15 mg tablet Commonly known as: Mobic tiZANidine 4 mg tablet Commonly known as: Zanaflex Take 1 tablet (4 mg) by mouth every 8 (eight) hours if needed for muscle spasms. Where to Get Your Medications You can get these medications from any pharmacy Bring a paper prescription for each of these medications calcium citrate 200 mg (950 mg) tablet cholecalciferol 25 MCG (1000 units) tablet ergocalciferol 1.25 MG (50374 Units) capsule ondansetron ODT 4 mg disintegrating tablet oxyCODONE-acetaminophen 5-325 mg tablet sennosides-docusate sodium 8.6-50 mg tablet Activity Do not drive or drink alcohol while taking narcotic pain medications. No tub baths, swimming, or submerging your incision. Keep clean and dry until your follow-up visit No heavy lifting, bending, twisting Diet Regular Allergies Penicillins and Bactoshield chg [chlorhexidine gluconate] Hospital Course L4-5 posterior decompression instrumentation and fusion Pertinent Physical Exam At Time of Discharge Physical Exam Wound clean and dry Motor 5/5 all reddy muscle groups Lab Results Labs Reviewed VITAMIN D 25 HYDROXY - Abnormal Result Value Vit D, 25-Hydroxy 9.2 (*) BASIC METABOLIC PANEL - Abnormal Sodium 139 Potassium 4.2 Chloride 105 CO2 26 BUN 9 Creatinine 0.71 Glucose 127 (*) Calcium 7.8 (*) Anion Gap 8 eGFR 98.9 BUN/Creatinine Ratio 12.68 CBC - Abnormal Auto WBC 14.08 (*) RBC 3.55 (*) Hemoglobin 11.0 (*) Hematocrit 34.0 (*) MCV 95.8 MCH 31.0 MCHC 32.4 RDW 14.8 Platelets 284 POCT GLUCOSE METER UNSOLICITED RESULTS - Normal Glucose POC 105 POCT SARS-COV-2 PCR - Normal SARS-CoV-2 Ag POC Negative Outpatient Follow-Up Future Appointments Date Time Provider Department Center 05/12/2022 9:50 AM Dillan Newby MD MP ORTHO MPORTHO Test Results Pending At Discharge Normal [facility] NURSNOTEon 05-04-2022 NURSNOTE Pt upset related to pre-cert for SNF .Nato Short reports she is post-op day 5 and does have help at home ,also reports surgeon expressed that she is not able to have aggressive therapy for 6-8 weeks.She has used [facility] care in the past and would like to discharge home with home care .Message left for SS. Ortho aware ,order implemented per Ortho for Home Health Care . Daughter notified and will transport . Normal [facility] 30on 05-03-2022 30 The patient is Moderately Stable - Low risk of patient condition declining or worsening The patient's goals for the shift include comfort The clinical goals for the shift include comfort Normal [facility] BASIC METABOLIC PANELon 11-0 Anion gap [Moles/Vol] 8 mmol/L Normal 7-20 [facility] Comment on above: Performed By: #### L [id number] ####[facility] ([facility])[address] [place] [address] Calcium [Mass/Vol] 7.8 mg/dL Low 8.6-10.3 [facility] Comment on above: Performed By: #### L [id number] ####[facility] ([facility])[address] [place] [address] Chloride [Moles/Vol] 105 mmol/L Normal 98-107 [facility] Comment on above: Performed By: #### L [id number] ####[facility] ([email or web address] [place] [address] CO2 [Moles/Vol] 26 mmol/L Normal 21-31 [facility] Comment on above: Performed By: #### L [id number] ####[facility] ([email or web address] [place] [address] Creatinine [Mass/Vol] 0.71 mg/dL Normal 0.60-1.20 [facility] Comment on above: Performed By: #### L [id number] ####[facility] ([facility])[address] [place] [address] GLOMERULAR FILTRATION RATE ML/MIN/1.73 SQ M.PREDICTED 98.9 mL/min/1.73m*2 Normal >60.0 [facility] Comment on above: Result Comment: The [facility]???s estimated glomerular filtration rate (eGFR) will no longer include consideration of race in its calculation. The National Kidney Foundation???s eGFR Task Force developed new recommendations for the estimation of the glomerular filtration rate in the [place] They recommend immediate implementation of the new equation refit without the race variable in all laboratories because the calculation does not include race. In addition to not including race in the calculation and reporting, it included diversity in its development, and has acceptable performance characteristics and potential consequences that do not disproportionately affect any one group of individuals. Performed By: #### L [id number] ####[facility] ([facility])[address] [place] [address] Glucose [Mass/Vol] 127 mg/dL High 70-100 [facility] Comment on above: Performed By: #### L [id number] ####[facility] ([facility])[address] [place] [address] Potassium [Moles/Vol] 4.2 mmol/L Normal 3.5-5.1 [facility] Comment on above: Performed By: #### L [id number] ####[facility] ([facility])[address] [place] [address] Sodium [Moles/Vol] 139 mmol/L Normal 136-145 [facility] Comment on above: Performed By: #### L [id number] ####[facility] ([facility])[address] [place] [address] Urea nitrogen [Mass/Vol] 9 mg/dL Normal 7-25 [facility] Comment on above: Performed By: #### L [id number] ####[facility] ([facility])[address] [place] [address] UREA NITROGEN/CREATININE (MASS RATIO) IN SER/PLAS 12.68 Normal [facility] Comment on above: Performed By: #### L [id number] ####[facility] ([facility])[address] [place] [address] CBCon 04-30-2022 Erythrocyte distribution width (RBC) [Ratio] 14.8 % Normal 11.5-15.0 [facility] Comment on above: Performed By: #### L [id number] ####[facility] ([facility])[address] [place] [address] ERYTHROCYTE MEAN CORPUSCULAR HEMOGLOBIN CONCENTRATION (G/DL) BY AUTOMATED 32.4 g/dL Normal 32.0-35.0 [facility] Comment on above: Performed By: #### L [id number] ####[facility] ([facility])[address] [place] [address] Hematocrit (Bld) [Volume fraction] 34.0 % Low 36.0-48.0 [facility] Comment on above: Performed By: #### L [id number] ####[facility] ([facility])[address] [place] [address] Hemoglobin (Bld) [Mass/Vol] 11.0 g/dL Low 12.0-15.0 [facility] Comment on above: Performed By: #### L [id number] ####[facility] ([facility])[address] [place] [address] MCH (RBC) [Entitic mass] 31.0 pg Normal 27.0-33.0 [facility] Comment on above: Performed By: #### L [id number] ####[facility] ([facility])[address] [place] [address] MCV (RBC) [Entitic vol] 95.8 fL Normal 82.0-98.0 [facility] Comment on above: Performed By: #### L [id number] ####[facility] ([facility])[address] [place] [address] PLATELETS (10*3/UL) IN BLOOD AUTOMATED COUNT 284 10*3/uL Normal 150-400 [facility] Comment on above: Performed By: #### L [id number] ####[facility] ([facility])[address] [place] [address] RBC (Bld) [#/Vol] 3.55 10*6/uL Low 3.80-5.00 [facility] Comment on above: Performed By: #### L [id number] ####[facility] [place] [address] WBC (Bld) [#/Vol] 14.08 10*3/uL High 4.00-10.60 [facility] Comment on above: Performed By: #### L [id number] ####[facility] ([facility])[address] [place] [address] HPon 04-29-2022 HP H&P reviewed. The patient was examined and there are no changes to the H&P. Normal [facility] NURSNOTEon 04-29-2022 NURSNOTE [facility] OPNOTE L4-5 DECOMPRESSION ( L), INSTRUMENTED LUMBAR FUSION (L) Operative Note Date: 04/29/2022 Location: [facility] OR Name: Nato Short, : 1970, Surgeons * Dillan Newby - Primary Mail Messenger: Michael Morales M.D. Preoperative Diagnosis: L 4-5 grade I spondylolisthesis with foramina stenosis and L5 radiculopathy (ICD-10 M43.16, M99.53, M54.16). Postoperative Diagnosis: L 4-5 grade I spondylolisthesis with foramina stenosis and L5 radiculopathy (ICD-10 M43.16, M99.53, M54.16). OPERATION: 1. L 4-5posterior lumbar spine decompression (77535). 2. L 4-5 transforaminal lumbar interbody fusion using autograft, crushed cancellous allograft, ViviGen and threaded bone dowel spacer 11 mm and posterolateral fusion using autograft, crushed cancellous allograft and ViviGen (54391, 72556). 3. L 4-5 instrumentation using Expedium system from [employer] MEET[employer] (81932). 4. Local bone autograft harvesting and use of crush cancellous allograft (83848, 21606). 5. Use of intraoperative fluoroscopy (01380). Procedure Summary Anesthesia: General ASA: III Position: Prone position on the Rashid table in reverse Trendelenburg position. Estimated Blood Loss: 250 mL Total IV Fluids: 1000 mL Drains: Hemovac Closed/Suction Drain Right Back 10 Fr. (Active) Urethral Catheter Non-latex (Active) Implants Type Name Action Serial No. TermSync READIGRAFT CANCELLOUS Implanted [id number] TermSync VIVGEN Implanted [id number] TermSync VIVIGEN 10CC Implanted ID: [id number] expedium 7x40 screws Implanted Screw SETSCREW,INNER,SINGLE - [id number] Implanted expedium 45mm rods Implanted T-PLIF SPACER 11MM Implanted [id number] Staff: Oil Expeller: Zoey Tellez RN Scrub Person: Cherise Cardona CST Indications: Nato Short is an 51 y.o. female who is having surgery for Spondylolisthesis of lumbar region [M43.16] Intervertebral disc stenosis of neural canal of lumbar region [M99.53] Lumbar radiculopathy [M54.16]. Complications: None. Counts: Needle, sponge, and instrument count correct at the end of surgical procedure. Disposition: The patient was transferred to the recovery room, extubated in a stable condition. Indication: Mrs. Short is 51 years presents to the clinic with a chief complaint of back pain as well as radicular pain in the distribution of left L5 and S1 nerve root dermatome. X-ray as well as MRI scan has confirmed L4-5 spondylolisthesis with spinal canal as well as foraminal stenosis. Due to severity of symptoms affecting daily activity and failure of conservative treatment including modification of activity, physical therapy, and spine injection, the patient was keen on the above-mentioned surgical procedure. We explained to the patient risks and benefits of the above-mentioned surgical procedure, which include but not limited to intraoperative complications from anesthesia including , dural tear, spinal cord or nerve root injury that may result in temporary or permanent paralysis, malposition of hardware that may require revision, injury to the intraabdominal organs that may require exploration and repair. Postoperative complications include, but not limited to blindness, infection, DVT/PE, incomplete relief of symptoms, pseudoarthrosis, and requirement of further surgery at the same or adjacent level. The patient fully understood risks and benefits and signed consent for surgery as well as blood transfusion. The patient had been cleared for surgery by his family doctor. The patient also has been seen in preoperative clinic at [facility]. Description of Procedure: The patient was taken to the operating room today and was positively identified, received a smooth general endotracheal intubation and received IV antibiotic for surgical prophylaxis. Under aseptic condition, a Lindsay catheter was inserted. Thigh-high COOPER stockings as well as sequential compression devices used for DVT prophylaxis. Spinal cord monitoring leads were applied. The patient was positioned prone on the Rashid table in reverse Trendelenburg position. All bony prominences were carefully padded. The C-arm was brought into AP and lateral position and marked level of skin incision centered over L 4-5 disk space. The skin was then prepped and draped in the usual manner. The intended area of skin incision was then infiltrated with 10 mL of 0.5% Marcaine with epinephrine. A midline exposure with sharp dissection, electrocautery dissection, and periosteal elevator exposed the transverse process of L4 and L5 bilaterally. After confirmation of correct level of surgery with fluoroscopy, attention was directed for insertion of the pedicle screws. Using anatomical landmarks and under lateral fluoroscopic guidance, the screw track was cannulated with high-speed bur. Blunt probing was then performed. Blunt cannulation was then done into the interverte (more content not included)... Normal [facility] POCT GLUCOSE METER UNSOLICIT ED RESULTSon 04-29-2022 Glucose [Mass/Vol] 105 mg/dL Normal 70-105 [facility] Comment on above: Result Comment: sonia pickard Performed By: #### L [id number] ####[facility] ([facility])[address] [place] [address] POCT SARS-COV-2 PCRon 2021 POC SARS-COV-2 ANTIGEN Negative Normal Negative [facility] Comment on above: Result Comment: ID N OW COVID-19 assay performed on the ID NOW Instrument is a rapid molecular in vitro diagnostic test utilizing an isothermal nucleic acid amplification technology intended for the qualitative detection of nucleic acid from the SARS-CoV-2 virus in direct anterior nasal(nasal), nasopharyngeal or throat swabs from individuals who are suspected of COVID-19 by their healthcare provider within the first seven days of the onset of symptoms.Testing is limited to laboratories certified under the Clinical Laboratory Improvement Amendments of 1988 (CLIA), 42 U.S.C. ???263a,that meet the requirements to perform high, moderate, or waived complexity tests. The ID NOW COVID-19 assay is also authorized for use at the Point of Care (POC), i.e., in patient care settings operating under a CLIA Certificate of Waiver, Certificate of Compliance, or Certificate of Accreditation. Performed By: #### L [id number] ####[facility] ([facility])[address] [place] [address] VITAMIN D 25 HYDROXYon 04-29 CALCIDIOL (25 [place] VITAMIN D3) (NG/ML) IN SER/PLAS 9.2 ng/mL Low 30.0-80.0 [facility] Comment on above: Result Comment: >80. 0 Toxicity possible Performed By: #### L [id number] ####[facility] ([facility])[address] [place] [address] Orders Onlyon 04-27-2022 Orders Only [id number] Nato Short 1970 F Date Provider Department [place] 04/27/2022 [id number], HISTORICAL [facility] No family history on file [facility] 36on 04-26-2022 36 Pt left voicemail asking if tizanidine can be increased from twice daily to three times daily as needed? Pt was previously getting prescription from PCP. Please advise. [facility] Refillon 04-26-2022 Refill [id number] Nato Short 1970 F Date Provider Department [place] 04/26/2022 Chucky-DILLAN NEWBY MP ORTHO MPORTHO No family history on file [facility] [id number] 04-21-2022 [id number] MEDICATIONS TO TAKE DOS:OMEPRAZOLE, GABAPENTIN,SYNTHROID, XANAFLEX MEDICATIONS TO HOLD: MOBIC X 1 WEEK NPO AFTR MIDNIGHT ONE LOOM STARTER NEEDS TO ACCOMPANY YOU, DRIVE YOU HOME, AND STAY WITH YOU FOR 24HOURS AFTER THE PROCEDURE. REMOVE ALL JEWELRY AND LEAVE AT HOME DOS Normal [facility] APTTon 04-21-2022 ACTIVATED PARTIAL THROMBOPLASTIN TIME IN PPP BY COAGULATION ASSAY 29.9 Seconds Normal 25.0-35.0 [facility] Comment on above: Performed By: #### L [id number] ####[facility] ([facility])[address] [place] [address] BASIC METABOLIC PANELon 03-28 Anion gap [Moles/Vol] 8 mmol/L Normal 7-20 [facility] Comment on above: Performed By: #### L [id number] ####[facility] ([facility])[address] [place] [address] Calcium [Mass/Vol] 9.5 mg/dL Normal 8.6-10.3 [facility] Comment on above: Performed By: #### L [id number] ####[facility] ([facility])[address] [place] [address] Chloride [Moles/Vol] 102 mmol/L Normal 98-107 [facility] Comment on above: Performed By: #### L [id number] ####[facility] ([facility])[address] [place] [address] CO2 [Moles/Vol] 28 mmol/L Normal 21-31 [facility] Comment on above: Performed By: #### L [id number] ####[facility] ([facility])[address] [place] [address] Creatinine [Mass/Vol] 0.80 mg/dL Normal 0.60-1.20 [facility] Comment on above: Performed By: #### L [id number] ####[facility] ([facility])[address] [place] [address] GLOMERULAR FILTRATION RATE ML/MIN/1.73 SQ M.PREDICTED 85.6 mL/min/1.73m*2 Normal >60.0 [facility] Comment on above: Result Comment: The [facility]???s estimated glomerular filtration rate (eGFR) will no longer include consideration of race in its calculation. The National Kidney Foundation???s eGFR Task Force developed new recommendations for the estimation of the glomerular filtration rate in the [place] They recommend immediate implementation of the new equation refit without the race variable in all laboratories because the calculation does not include race. In addition to not including race in the calculation and reporting, it included diversity in its development, and has acceptable performance characteristics and potential consequences that do not disproportionately affect any one group of individuals. Performed By: #### L [id number] ####[facility] ([facility])[address] [place] [address] Glucose [Mass/Vol] 93 mg/dL Normal 70-100 [facility] Comment on above: Performed By: #### L [id number] ####[facility] ([facility])[address] [facility] [place] [address] Potassium [Moles/Vol] 4.6 mmol/L Normal 3.5-5.1 [facility] Comment on above: Performed By: #### L [id number] ####[facility] ([facility])[address] [facility] [place] [address] Sodium [Moles/Vol] 138 mmol/L Normal 136-145 [facility] Comment on above: Performed By: #### L [id number] ####[facility] ([facility])[address] [facility] [place] [address] Urea nitrogen [Mass/Vol] 12 mg/dL Normal 7-25 [facility] Comment on above: Performed By: #### L [id number] ####[facility] ([facility])[address] [facility] [address] UREA NITROGEN/CREATININE (MASS RATIO) IN SER/PLAS 15.00 Normal [facility] Comment on above: Performed By: #### L [id number] ####[facility] ([facility])[address] [facility] [address] CBC WITH AUTO DIFFERENTIALon 10-26-2022 Basophils (Bld) [#/Vol] 0.05 10*3/uL Normal 0.00-0.20 [facility] Comment on above: Performed By: #### L [id number] ####[facility] ([facility])[address] [place] [address] Basophils/100 WBC (Bld) 0.4 % Normal 0.0-1.0 [facility] Comment on above: Performed By: #### L [id number] ####[facility] ([facility])[address] [place] [address] Eosinophils (Bld) [#/Vol] 0.07 10*3/uL Normal 0.00-0.50 [facility] [facility] Comment on above: Performed By: #### L [id number] ####[facility] (BEAKER)[address] [place] [address] Eosinophils/100 WBC (Bld) 0.6 % Normal 0.0-6.0 [facility] Comment on above: Performed By: #### L [id number] ####[facility] (BEAKER)[address] [place] [address] ERYTHROCYTE DISTRIBUTION WIDTH (RATIO) STANDARD DEVIATION 48.5 Normal [facility] Comment on above: Performed By: #### L [id number] ####[facility] (BEAKER)[address] [place] [address] Erythrocyte distribution width (RBC) [Ratio] 14.4 % Normal 11.5-15.0 [facility] Comment on above: Performed By: #### L [id number] ####[facility] (BEAKER)[address] [place] [address] ERYTHROCYTE MEAN CORPUSCULAR HEMOGLOBIN CONCENTRATION (G/DL) BY AUTOMATED 33.1 g/dL Normal 32.0-35.0 [facility] Comment on above: Performed By: #### L [id number] ####[facility] (BEAKER)[address] [place] [address] Hematocrit (Bld) [Volume fraction] 44.4 % Normal 36.0-48.0 [facility] Comment on above: Performed By: #### L [id number] ####[facility] ([facility]ER)[address] [place] [address] Hemoglobin (Bld) [Mass/Vol] 14.7 g/dL Normal 12.0-15.0 [facility] Comment on above: Performed By: #### L [id number] ####[facility] (BEAKER)[address] [place] [address] Immature granulocytes (Bld) [#/Vol] 0.04 10*3/uL Normal 0.00-0.20 [facility] Comment on above: Performed By: #### L [id number] ####[facility] (BEAKER)[address] [place] [address] Immature granulocytes/100 WBC (Bld) 0.4 % Normal 0.0-1.0 [facility] Comment on above: Performed By: #### L [id number] ####[facility] (BEAKER)[address] [place] [address] Lymphocytes (Bld) [#/Vol] 3.12 10*3/uL Normal 1.20-4.00 [facility] Comment on above: Performed By: #### L [id number] ####[facility] (BEAKER)[address] [place] [address] Lymphocytes/100 WBC (Bld) 28.0 % Normal 20.0-45.0 [facility] Comment on above: Performed By: #### L [id number] ####[facility] (BEAKER)[address] [place] [address] MCH (RBC) [Entitic mass] 30.7 pg Normal 27.0-33.0 [facility] Comment on above: Performed By: #### L [id number] ####[facility] (BEAKER)[address] [place] [address] MCV (RBC) [Entitic vol] 92.7 fL Normal 82.0-98.0 [facility] Comment on above: Performed By: #### L [id number] ####[facility] (BEAKER)[address] [place] [address] Monocytes (Bld) [#/Vol] 0.88 10*3/uL Normal 0.10-1.00 [facility] Comment on above: Performed By: #### L [id number] ####[facility] [place] [address] Monocytes/100 WBC (Bld) 7.9 % Normal 5.0-12.0 [facility] Comment on above: Performed By: #### L [id number] ####[facility] ([facility])[address] [place] [address] Neutrophils (Bld) [#/Vol] 7.00 10*3/uL Normal 1.60-7.60 [facility] Comment on above: Performed By: #### L [id number] ####[facility] ([facility])[address] [place] [address] Neutrophils/100 WBC (Bld) 62.7 % Normal 40.0-72.0 [facility] Comment on above: Performed By: #### L [id number] ####[facility] ([facility])[address] [place] [address] NRBC (PER 100 WBCS) BY AUTOMATED COUNT 0.0 % Normal 0.0-0.0 [facility] Comment on above: Performed By: #### L [id number] ####[facility] ([facility])[address] [place] [address] PLATELETS (10*3/UL) IN BLOOD AUTOMATED COUNT 371 10*3/uL Normal 150-400 [facility] Comment on above: Performed By: #### L [id number] ####[facility] ([facility] [place] [address] RBC (Bld) [#/Vol] 4.79 10*6/uL Normal 3.80-5.00 [facility] Comment on above: Performed By: #### L [id number] ####[facility] (BEAKER)[address] [place] [address] WBC (Bld) [#/Vol] 11.16 10*3/uL High 4.00-10.60 [facility] Comment on above: Performed By: #### L [id number] ####[facility] (BEAKER)[address] [place] [address] Consulton 04-21-2022 Consult [id number] Nato Short 1970 F Date Provider Department Center 04/21/2022 DILLAN CRANE MP ORTHO MPORTHO No family history on file Level of Service:89697 AL OFFICE/OUTPATIENT ESTABLISHED LOW MDM 20-29 MIN (GC) Reason for Visit and Comments: Follow-up [[id number]] - Preop lumbar consent Normal [facility] HPon 04-21-2022 HP --- Attestation signed by Dillan Newby MD at 04/21/2022 8:25 PM I personally saw and examined the patient on the same date of service as resident/fellow Michael Morales. I discussed the findings and therapeutic plan with the resident/fellow Michael Morales. I agree with the documentation, except for any edits/updates below. Teaching Physician's Revisions: Dillan Newby Chief Complaint: LBP HPI Patient presents for formal preoperative visit. Denies any interval changes in symptoms since last visit. When did this problem begin: Long time Timing/frequency of occurrence: Constant Pain description: dull ache Pain severity: 7 Radicular pain: left leg Numbness/tingling: No Pain is getting: gradually worsening Weakness: No What improves symptoms: Rest What makes symptoms worse: Activity Gait disturbance: No Fine hand dexterity problem: No Previous surgeries for this problem: No ROS Constitutional: Fatigue: No Weight loss: No Fever: No Chills: No Musculoskeletal: Neck Stiffness: No Neck Pain: No Back Stiffness: No Back Pain: No Neurologic: Headache:{No Weakness: No Numbness: No Paresthesia: No Tremor: No Physical Exam Musculoskeletal Ortho spine musculoskeletal examination: Alignment spine: normal Tenderness: lumbar paraspinal Range of motion Cervical spine: normal Range of motion lumbar spine: limited Neurological Biceps strength: 5 Wrist extension: 5 Triceps strength: 5 Finger flexor: 5 Finger abduction strength: 5 Flexion at the hip strength: 5 Quadriceps strength: 5 Tibialis anterior strength: 5 Plantar flexion strength: 5 Extensor Hallicis Longus strength: 5 Sensory Exam: intact Straight leg raising: Negative Positive degrees DTR/ Pathologic reflexes Biceps reflex- 2 Brachioradialis reflex- 2 Triceps reflex- 2 Patellar reflex- 2 Achilles reflex- 2 Babinski- negative Gaxiola reflex: Absent Gait and station Gait: Normal Tandem gait: Able Images: X ray L3-L5 disc degeneration disc present. X-rays also reveal spondylolisthesis present from L4-L5 Outside MRI L-spine from [facility] performed 01/13/2022 was reviewed today and shows significant disc protrusion at the level of L4-L5 causing significant lumbar stenosis. CT L-spine demonstrates L4-5 anterolithesis. Counting from last rib, pathology is present at L4-5. Assessment and Plan 51 years presents with LBP and radicular pain left lower extremity Explained the clinical and radiological findings with the patient and discussed management options. Recommended: Due to severity of the patient symptoms affecting daily activities and quality of life and failure of conservative management to give sustained relief, patient is keen on surgical management. Spinal fusion is indicated due to after decompression of the foramen. The spine will become unstable therefore a fusion will be necessary. Preoperative diagnosis: L4-5 spondylolisthesis, L3-L5 disc degeneration, L3-L5 spinal stenosis, foramina stenosis, and left lower extremity radiculopathy Planned procedure: L4-L5 decompression and fusion XR, MRI, and CT were personally reviewed to confirm appropriate surgical level. Spondylolisthesis present at L4-5 level and this is the level that will be decompressed and fused. Discussed proposed procedure with patient/family. All questions answered in full. Obtained informed consent. History and physical examination completed. Surgical Risk Reviewed with the patient: Lumbar Spine Surgery: The patient was counseled on thoracic/lumbar spine surgical risks including but not limited to intra-operative complication from anesthesia, including , dural tear, temporary or permanent paralysis, malposition of hardware that may require revision, and injury of intra-abdominal/intra-t horacic organs that may require exploration and repair. Post-operative complications including but not limited to blindness, infection, blood clot in legs and/or lungs, incomplete relief of pain, pseudoarthrosis, and requirement of further surgery at the same or adjacent level. Michael Morales MD Orthopaedic Surgery, PGY-5 By using the attestations below, the signing clinician agrees that I have read and verify that the documentation has been personally reviewed by me and ensure that the documentation accurately reflects the encounter. GC: I personally saw this patient on the day of the encounter, performed the reddy portion(s) of the service and participated in the management and confirm the resident's documentation. Please note there may be an additional personal documentation from me. Normal [facility] MRSA/MSSA DNA NASALon 2021 MRSA DNA Negative Normal Negative, Invalid [facility] Comment on above: Performed By: #### L [id number] ####[facility] (BEAKER)[address] [place] [address] MSSA DNA Negative Normal Negative, Invalid [facility] Comment on above: Performed By: #### L [id number] ####[facility] (BEAKER)[address] [place] [address] PROTIME-INRon 04-21-2022 INR IN PPP BY COAGULATION ASSAY 0.99 Normal 0.90-1.10 [facility] Comment on above: Result Comment: ACCC P RECOMMENDED INR FOR WARFARIN THERAPY CONDITION INR PROPHYLAXIS OF VENOUS THROMBOSIS 2-3 (HIGH-RISK SURGERY) TREATMENT OF VENOUS THROMBOSIS 2-3 TREATMENT OF PULMONARY EMBOLISM 2-3 PREVENTION OF SYSTEMIC EMBOLISM: 2-3 ACUTE MYOCARDIAL INFARCTION TISSUE HEART VALVES VALVULAR HEART DISEASE ATRIAL FIBRILLATION RECURRENT SYSTEMIC EMBOLISM MECHANICAL HEART VALVE 2.5-3.5 FROM: ORAL ANTICOAGULANTS. MECHANISM OF ACTION, CLINICAL EFFECTIVENESS, AND OPTIMAL THERAPEUTIC RANGE. CHEST 1995;108:231S-246S. Performed By: #### L [id number] ####[facility] (99tests)[address] [place] [address] PROTHROMBIN TIME (PT) IN PPP BY COAGULATION ASSAY 13.1 Seconds Normal 12.3-14.8 [facility] Comment on above: Performed By: #### L [id number] ####[facility] (99tests)[address] [place] [address] TYPE AND SCREENon 04-21-2022 AB SCREEN Negative Normal [facility] Comment on above: Order Comment: Type and cross x 2 units Performed By: #### L [id number] ####[facility], ABO group Nom (Bld) A Normal [facility] Comment on above: Order Comment: Type and cross x 2 units Performed By: #### L [id number] ####[facility], RH TYPE IN BLOOD Positive Normal [facility] Comment on above: Order Comment: Type and cross x 2 units Performed By: #### L [id number] ####[facility], URINALYSISon 04-21-2022 BILIRUBIN, TOTAL PRESENCE IN URINE Negative Normal Negative [facility] Comment on above: Order Comment: 0000 Performed By: #### L [id number] ####[facility] (99tests)[address] [place] [address] Clarity (U) Clear Normal Clear [facility] Comment on above: Order Comment: 0000 Performed By: #### L [id number] ####[facility] ([facility]AKER)[address] [place] [address] Color (U) Yellow Normal Yellow, Dark Yellow, Straw [facility] Comment on above: Order Comment: 0000 Performed By: #### L [id number] ####[facility] ([facility]ER)[address] [place] [address] Glucose (U) [Mass/Vol] Negative Normal Negative [facility] Comment on above: Order Comment: 0000 Performed By: #### L [id number] ####[facility] ([facility]ER)[address] [place] [address] HEMOGLOBIN PRESENCE IN URINE Negative Normal Negative [facility] Comment on above: Order Comment: 0000 Performed By: #### L [id number] ####[facility] (BEAKER)[address] [place] [address] Ketones Ql (U) Trace Abnormal Negative [facility] Comment on above: Order Comment: 0000 Performed By: #### L [id number] ####[facility] (BEAKER)[address] [place] [address] LEUKOCYTE ESTERASE PRESENCE IN URINE BY TEST STRIP Negative Normal Negative [facility] Comment on above: Order Comment: 0000 Performed By: #### L [id number] ####[facility] ([facility]ER)[address] [place] [address] NITRITE PRESENCE IN URINE Negative Normal Negative [facility] Comment on above: Order Comment: 0000 Performed By: #### L [id number] ####[facility] ([facility]AKER)[address] [place] [address] pH (U) 6.0 [pH] Normal 5.0-8.0 [facility] Comment on above: Order Comment: 0000 Performed By: #### L [id number] ####[facility] ([facility]ER)[address] [place] [address] Protein (U) [Mass/Vol] Negative Normal Negative [facility] Comment on above: Order Comment: 0000 Performed By: #### L [id number] ####[facility] (BEAKER)[address] [place] [address] Specific gravity (U) [Rel density] 1.020 Normal 1.015-1.020 [facility] Comment on above: Order Comment: 0000 Performed By: #### L [id number] ####[facility] (BEAKER)[address] [place] [address] UROBILINOGEN (EU/DL) IN URINE 0.2 EU/dL Normal Negative [facility] Comment on above: Order Comment: 0000 Performed By: #### L [id number] ####[facility] (BEAKER)[address] [place] [address] 36on 04-19-2022 36 Please advise refill request. Normal [facility] Refillon 04-19-2022 Refill [id number] Nato Short 1970 F Date Provider Department Center 04/19/2022 D[facility]AN [address] No family history on file Reason for Visit and Comments: Med Refill [[id number]] Normal [facility] CBC AUTO DIFFon 04-16-2022 BASO # 0.1 103/ul Normal 0.0-0.1 [facility] Comment on above: Performed By: #### C BC #### [facility] [address] [place] [address] Dr. Radha Suarez Basophils/100 WBC (Bld) 0.8 % Normal 0.2-2.0 [facility] Comment on above: Performed By: #### C BC #### [facility] [address] [place] [address] Dr. Radha Suarez EO # 0.1 103/ul Normal 0.0-0.7 [facility] Comment on above: Performed By: #### C BC #### [facility] [address] [place] [address] Dr. Radha Suarez Eosinophils/100 WBC (Bld) 0.8 % Critically low 0.9-7.0 [facility] Comment on above: Performed By: #### C BC #### [facility] [address] [place] [address] Dr. Radha Suarez Erythrocyte distribution width (RBC) [Ratio] 14.3 % Normal 11.0-15.0 [facility] Comment on above: Performed By: #### C BC #### [facility] [address] [place] [address] Dr. Radha Suarez Hematocrit (Bld) [Volume fraction] 44.4 % Normal 36.0-48.0 [facility] Comment on above: Performed By: #### C BC #### [facility] [address] [place] [address] Dr. Radha Suarez Hemoglobin (Bld) [Mass/Vol] 14.6 g/dL Normal 12.0-16.0 [facility] Comment on above: Performed By: #### C BC #### [facility] [address] [place] [address] Dr. Radha Suarez IG # 0.02 10e3/ul Normal 0.00-0.03 [facility] Comment on above: Performed By: #### C BC #### [facility] [address] [place] [address] Dr. Radha Suarez IG % 0.3 % Normal 0.0-0.5 [facility] Comment on above: Performed By: #### C BC #### [facility] [address] [place] [address] Dr. Radha Suarez LYMPH # 2.4 103/ul Normal 1.2-3.8 [facility] Comment on above: Performed By: #### C BC #### [facility] [address] [place] [address] Dr. Radha Suarez Lymphocytes/100 WBC (Bld) 31.6 % Normal 20.5-60.0 [facility] Comment on above: Performed By: #### C BC #### [facility] [address] [place] [address] Dr. Radha Suarez MANUAL DIFF REQ NO Normal [facility] Comment on above: Performed By: #### C BC #### [facility] [address] [place] [address] Dr. Radha Suarez MCH (RBC) [Entitic mass] 30.5 pg Normal 26.7-34.0 [facility] Comment on above: Performed By: #### C BC #### [facility] [address] [address] [address] Radha Suarez MCHC (RBC) [Mass/Vol] 32.9 g/dL Normal 29.9-35.2 [facility] Comment on above: Performed By: #### C BC #### [facility] [address] [address] [address] Radha Suarez MCV (RBC) [Entitic vol] 92.9 fL Normal 81.0-99.0 [facility] Comment on above: Performed By: #### C BC #### [facility] [address] [place] [address] Dr. Radha Suarez MONO # 0.6 103/ul Normal 0.3-0.8 [facility] Comment on above: Performed By: #### C BC #### [facility] [address] [place] [address] Dr. Radha Suarez Monocytes/100 WBC (Bld) 7.8 % Normal 1.7-12.0 [facility] Comment on above: Performed By: #### C BC #### [facility] [address] [place] [address] Dr. Radha Suarez NEUT # 4.5 103/ul Normal 1.4-6.5 [facility] Comment on above: Performed By: #### C BC #### [facility] [address] [address] [address] Radha Suarez Neutrophils/100 WBC (Bld) 58.7 % Normal 43.0-75.0 [facility] Comment on above: Performed By: #### C BC #### [facility] [address] [address] [address] Radha Suarez Platelet mean volume (Bld) [Entitic vol] 9.1 fL Critically low 9.5-13.5 [facility] Comment on above: Performed By: #### C BC #### [facility] [address] [address] [address] Radha Suarez PLT 346 103/ul Normal 150-450 [facility] Comment on above: Performed By: #### C BC #### [facility] [address] [address] [address] Radha Suarez RBC 4.78 106/ul Normal 4.20-5.40 [facility] Comment on above: Performed By: #### C BC #### [facility] [address] [address] [address] Radha Suarez WBC 7.6 103/ul Normal 4.0-11.0 [facility] Comment on above: Performed By: #### C BC #### [facility] [address] [place] [address] Dr. Radha Suarez FREE T3on 04-16-2022 FREE T3 2.50 pg/mlL Normal 2.18-3.98 [facility] Comment on above: Performed By: #### C BC #### [facility] [address] [place] [address] Dr. Radha Suarez FREE T4on 04-16-2022 Free T4 [Mass/Vol] 1.33 ng/dL Normal 0.76-1.46 [facility] Comment on above: Performed By: #### F T4 #### [facility] [address] [place] [address] Dr. Radha Suarez PROF CHEM 8 (BAS METB)on Anion gap [Moles/Vol] 8.7 mmol/L Normal [facility] Comment on above: Performed By: #### C BC #### [facility] [address] [place] [address] Dr. Radha Suarez Calcium [Mass/Vol] 9.4 mg/dL Normal 8.5-10.1 [facility] Comment on above: Performed By: #### C BC #### [facility] [address] [place] [address] Dr. Radha Suarez Chloride [Moles/Vol] 101 mmol/L Normal 98-107 [facility] Comment on above: Performed By: #### C BC #### [facility] [address] [address] [address] Radha Suarez CO2 [Moles/Vol] 30.5 mmol/L Normal 21.0-32.0 [facility] Comment on above: Performed By: #### C BC #### [facility] [address] [place] [address] Dr. Radha Suarez Creatinine [Mass/Vol] 0.72 mg/dL Normal 0.55-1.02 [facility] Comment on above: Performed By: #### C BC #### [facility] [address] [place] [address] Dr. Radha Suarez EGFR-AF EAST [place] >60 Normal >=60 [facility] Comment on above: Performed By: #### C BC #### [facility] [address] [place] [address] Dr. Radha Suarez EGFR-NON AF [place] >60 Normal >=60 [facility] Comment on above: Performed By: #### C BC #### [facility] [address] [place] [address] Dr. Radha Suarez Glucose [Mass/Vol] 99 mg/dL Normal 74-106 [facility] Comment on above: Performed By: #### C BC #### [facility] [address] [place] [address] Dr. Radha Suarez Potassium [Moles/Vol] 4.2 mmol/L Normal 3.5-5.1 [facility] Comment on above: Performed By: #### C BC #### [facility] [address] [place] [address] Dr. Radha Suarez Sodium [Moles/Vol] 136 mmol/L Normal 136-145 [facility] Comment on above: Performed By: #### C BC #### [facility] [address] [place] [address] Dr. Radha Suarez Urea nitrogen [Mass/Vol] 12.0 mg/dL Normal 7.0-18.0 [facility] Comment on above: Performed By: #### C BC #### [facility] [address] [place] [address] Dr. Radha Suarez Urea nitrogen/Creatinine [Mass ratio] 16.7 mg/mg Normal [facility] Comment on above: Performed By: #### C BC #### [facility] [address] [place] [address] Dr. Radha Suarez PROTIMEon 04-16-2022 INR Coag (PPP) [Relative time] 0.98 {INR} Normal [facility] Comment on above: Performed By: #### P TT, PT #### [facility] [address] [place] [address] Dr. Radha Suarez INR GUIDELINES SEE BELOW Normal [facility] Comment on above: Result Comment: DEVI RED INR: 2.0 - 3.0 CONDITIONS NOT LISTED BELOW 2.5 - 3.5 FOR PROSTHETIC HEART VALVE REPLACEMENT 2.5 - 3.5 RECURRENT THROMBOSIS Performed By: #### P TT, PT #### [facility] [address] [place] [address] Dr. Radha Suarez PT Coag (PPP) [Time] 10.6 s Normal 9.0-11.6 [facility] Comment on above: Performed By: #### P TT, PT #### [facility] [address] [place] [address] Dr. Radha Suarez PTTon 04-16-2022 aPTT Coag (Bld) [Time] 27.9 s Normal 22.3-36.2 [facility] Comment on above: Performed By: #### P TT, PT #### [facility] [address] [place] [address] Dr. Radha Suarez TSHon 04-16-2022 TSH 0.206 uIU/mL Critically low 0.358-3.740 [facility] Comment on above: Performed By: #### C BC #### [facility] [address] [place] [address] Dr. Radha Suarez 29on 04-13-2022 29 Addended by: ORA PEREZ on: 04/28/2022 07:39 AM Modules accepted: Orders, SmartSet Normal [facility] Prep for Procedureon 022 Prep for Procedure [id number] Nato Short 1970 F Date Provider Department Center 04/13/2022 82ORA SALGADO ORTHO MPORTHO Chart Close Cosign Accepted by: DILLAN NEWBY[[id number]] Chart Close Cosign Accepted on: TueApr 13, 2022 4:43 PM No family history on file Normal [facility] Office Visiton 04-07-2022 Follow-up visit [id number] PhilipNato 1970 Date Provider Department Center 04/07/2022 DILLAN CRANE ORTHO MPORTHO No family history on file Level of Service:37653 AL OFFICE/OUTPATIENT ESTABLISHED LOW MDM 20-29 MIN (57,GC) Reason for Visit and Comments: Pain [136] - MRI results Normal [facility] 29on 03-24-2022 29 Addended by: ORA TIPTON on: 03/30/2022 11:29 AM Modules accepted: Orders Normal [facility] Office Visiton 03-24-2022 Follow-up visit [id number] Nato Short 1970 Date Provider Department [place] 03/24/2022 DILLAN CRANE ORTHO MPORTHO No family history on file Level of Service:49960 AL OFFICE/OUTPATIENT ESTABLISHED LOW MDM 20-29 MIN Reason for Visit and Comments: Pain [136] Follow-up [059731] Normal [facility] FREE T4on 03-08-2022 Free T4 [Mass/Vol] 1.59 ng/dL Critically high 0.76-1.46 [facility] Comment on above: Performed By: #### C VDTB #### [facility] [address] [address] [address] Radha Suarez TSHon 03-08-2022 TSH 0.107 uIU/mL Critically low 0.358-3.740 [facility] Comment on above: Performed By: #### C VDTBH #### [facility] [address] [address] [address] Radha Suarez LUMBAR SPINE 4 OR 5 VWSon LUMBAR SPINE 4 OR 5 VWS [facility] Department of Radiology [address] [place] [id number] ===== Patient Name: NATO SHORT : 1970 Sex: F Age: Race: White Pt. Location: Patient Status: D Ordered Date: 03/03/2022 2:10:00 PM Completed Date: 03/03/2022 02:31 PM Requesting Provider: DILLAN NEWBY Attending Provider: DILLAN NEWBY Report Copy To: Signs & Symptoms: M54.50 Low back pain, unspecified I10 History: Yuli Comments: Evaluate Exam: LUMBAR SPINE 4 OR 5 VWS ===== LUMBAR SPINE 4 OR 5 VWS 03/03/2022 2:31 PM CLINICAL INDICATIONS: M54.50 Low back pain, unspecified I10 TECHNOLOGIST COMMENTS: patient states having lower back pain with left hip and left leg pain. QUESTION FOR RADIOLOGIST: Evaluate PROTOCOL: AP,Lateral,L5-S1 spot,Flexion and Extension views were obtained. AP,Lateral,L5-S1 spot and Bilateral Oblique views were obtained. COMPARISON: XR lumbar spine 10/04/2018. FINDINGS: Numbering assumes the presence of 5 lumbar type vertebral bodies. Mild anterolisthesis of L4 and L5, which displays no significant translation on dynamic imaging. Vertebral body heights are preserved. Mild intervertebral disc space loss and facet hypertrophy at L4-L5 and L5-S1. Mild calcification of the abdominal aorta. IMPRESSION: * Grade 1 anterolisthesis of L4 on L5 with minimal subjective progression on flexion, which is unchanged from 2019. * Moderate degenerative changes of the lumbar spine. Approved by:Raúl Parsons03/04/2022 8:16 AM. I, Anjum Quevedo,have reviewed the image(s) and agree with the findings in this report. Electronically signed: Anjum Quevedo. Transcribed by: [email or web address], User Resident: ANJUM CLIFTON Electronically Signed by: ANJUM QUEVEDO @ 03/04/2022 09:13 AM I personally read this/these film(s) with this resident Normal [facility] Comment on above: Order Comment: Evalu ate CBC AUTO DIFFon 02-04-2022 BASO # 0.0 103/ul Normal 0.0-0.1 [facility] Comment on above: Performed By: #### C BC #### [facility] [address] [place] [address] Dr. Radha Suarez Basophils/100 WBC (Bld) 0.1 % Critically low 0.2-2.0 [facility] Comment on above: Performed By: #### C BC #### [facility] [address] [place] [address] Dr. Radha Suarez EO # 0.0 103/ul Normal 0.0-0.7 [facility] Comment on above: Performed By: #### C BC #### [facility] [address] [place] [address] Dr. Radha Suarez Eosinophils/100 WBC (Bld) 0.1 % Critically low 0.9-7.0 [facility] Comment on above: Performed By: #### C BC #### [facility] [address] [place] [address] Dr. Radha Suarez Erythrocyte distribution width (RBC) [Ratio] 14.4 % Normal 11.0-15.0 [facility] Comment on above: Performed By: #### C BC #### [facility] [address] [place] [address] Dr. Radha Suarez Hematocrit (Bld) [Volume fraction] 41.1 % Normal 36.0-48.0 [facility] Comment on above: Performed By: #### C BC #### [facility] [address] [address] [address] Radha Suarez Hemoglobin (Bld) [Mass/Vol] 13.3 g/dL Normal 12.0-16.0 [facility] Comment on above: Performed By: #### C BC #### [facility] [address] [place] [address] Dr. Radha Suarez IG # 0.09 10e3/ul Critically high 0.00-0.03 [facility] Comment on above: Performed By: #### C BC #### [facility] [address] [place] [address] Dr. Radha Suarez IG % 0.6 % Critically high 0.0-0.5 [facility] Comment on above: Performed By: #### C BC #### [facility] [address] [place] [address] Dr. Radha Suarez LYMPH # 1.1 103/ul Critically low 1.2-3.8 [facility] Comment on above: Performed By: #### C BC #### [facility] [address] [place] [address] Dr. Radha Suarez Lymphocytes/100 WBC (Bld) 7.6 % Critically low 20.5-60.0 [facility] Comment on above: Performed By: #### C BC #### [facility] [address] [place] [address] Dr. Radha Suarez MANUAL DIFF REQ NO Normal [facility] Comment on above: Performed By: #### C BC #### [facility] [address] [address] [address] Radha Suarez MCH (RBC) [Entitic mass] 30.5 pg Normal 26.7-34.0 [facility] Comment on above: Performed By: #### C BC #### [facility] [address] [place] [address] Dr. Radha Suarez MCHC (RBC) [Mass/Vol] 32.4 g/dL Normal 29.9-35.2 [facility] Comment on above: Performed By: #### C BC #### [facility] [address] [place] [address] Dr. Radha Suarez MCV (RBC) [Entitic vol] 94.3 fL Normal 81.0-99.0 [facility] Comment on above: Performed By: #### C BC #### [facility] [address] [place] [address] Dr. Radha Suarez MONO # 0.4 103/ul Normal 0.3-0.8 [facility] Comment on above: Performed By: #### C BC #### [facility] [address] [place] [address] Dr. Radha Suarez Monocytes/100 WBC (Bld) 2.4 % Normal 1.7-12.0 [facility] Comment on above: Performed By: #### C BC #### [facility] [address] [place] [address] Dr. Radha Suarez NEUT # 13.2 103/ul Critically high 1.4-6.5 [facility] Comment on above: Performed By: #### C BC #### [facility] [address] [place] [address] Dr. Radha Suarez Neutrophils/100 WBC (Bld) 89.2 % Critically high 43.0-75.0 [facility] Comment on above: Performed By: #### C BC #### [facility] [address] [place] [address] Dr. Radha Suarez Platelet mean volume (Bld) [Entitic vol] 9.3 fL Critically low 9.5-13.5 [facility] Comment on above: Performed By: #### C BC #### [facility] [address] [place] [address] Dr. Radha Suarez PLT 358 103/ul Normal 150-450 [facility] Comment on above: Performed By: #### C BC #### [facility] [address] [place] [address] Dr. Radha Suarez RBC 4.36 106/ul Normal 4.20-5.40 [facility] Comment on above: Performed By: #### C BC #### [facility] [address] [place] [address] Dr. Radha Suarez WBC 14.8 103/ul Critically high 4.0-11.0 [facility] Comment on above: Performed By: #### C BC #### [facility] [address] [place] [address] Dr. Radha Suarez PROF CHEM 8 (BAS METB)on Anion gap [Moles/Vol] 10.7 mmol/L Normal [facility] Comment on above: Performed By: #### B MP #### [facility] [address] [address] [address] Radha Suarez Calcium [Mass/Vol] 8.6 mg/dL Normal 8.5-10.1 [facility] Comment on above: Performed By: #### B MP #### [facility] [address] [place] [address] Dr. Radha Suarez Chloride [Moles/Vol] 103 mmol/L Normal 98-107 [facility] Comment on above: Performed By: #### B MP #### [facility] [address] [place] [address] Dr. Radha Suarez CO2 [Moles/Vol] 27.2 mmol/L Normal 21.0-32.0 [facility] Comment on above: Performed By: #### B MP #### [facility] [address] [place] [address] Dr. Radha Suarez Creatinine [Mass/Vol] 0.82 mg/dL Normal 0.55-1.02 [facility] Comment on above: Performed By: #### B MP #### [facility] [address] [place] [address] Dr. Radha Suarez EGFR-AF [place] >60 Normal >=60 [facility] Comment on above: Performed By: #### B MP #### [facility] [address] [place] [address] Dr. Radha Suarez EGFR-NON AF [place] >60 Normal >=60 [facility] Comment on above: Performed By: #### B MP #### [facility] [address] [place] [address] Dr. Radha Suarez Glucose [Mass/Vol] 158 mg/dL Critically high 74-106 [facility] Comment on above: Performed By: #### B MP #### [facility] [address] [address] [address] Radha Suarez Potassium [Moles/Vol] 3.9 mmol/L Normal 3.5-5.1 [facility] Comment on above: Performed By: #### B MP #### [facility] [address] [address] [address] Radha Suarez Sodium [Moles/Vol] 137 mmol/L Normal 136-145 [facility] Comment on above: Performed By: #### B MP #### [facility] [address] [place] [address] Dr. Radha Suarez Urea nitrogen [Mass/Vol] 16.0 mg/dL Normal 7.0-18.0 [facility] Comment on above: Performed By: #### B MP #### [facility] [address] [place] [address] Dr. Radha Suarez Urea nitrogen/Creatinine [Mass ratio] 19.5 mg/mg Normal [facility] Comment on above: Performed By: #### B MP #### [facility] [address] [place] [address] Dr. Radha Suarez CBC AUTO DIFFon 02-03-2022 BASO # 0.0 103/ul Normal 0.0-0.1 [facility] Comment on above: Performed By: #### C VDTBH #### [facility] [address] [place] [address] Dr. Radha Suarez Basophils/100 WBC (Bld) 0.3 % Normal 0.2-2.0 [facility] Comment on above: Performed By: #### C VDTBH #### [facility] [address] [place] [address] Dr. Radha Suarez EO # 0.0 103/ul Normal 0.0-0.7 [facility] Comment on above: Performed By: #### C VDTBH #### [facility] [address] [place] [address] Dr. Radha Suarez Eosinophils/100 WBC (Bld) 0.0 % Critically low 0.9-7.0 [facility] Comment on above: Performed By: #### C VDTBH #### [facility] [address] [place] [address] Dr. Radha Suarez Erythrocyte distribution width (RBC) [Ratio] 14.2 % Normal 11.0-15.0 [facility] Comment on above: Performed By: #### C VDTBH #### [facility] [address] [place] [address] Dr. Radha Suarez Hematocrit (Bld) [Volume fraction] 43.2 % Normal 36.0-48.0 [facility] Comment on above: Performed By: #### C VDTBH #### [facility] [address] [place] [address] Dr. Radha Suarez Hemoglobin (Bld) [Mass/Vol] 13.8 g/dL Normal 12.0-16.0 [facility] Comment on above: Performed By: #### C VDTBH #### [facility] [address] [place] [address] Dr. Radha Suarez IG # 0.02 10e3/ul Normal 0.00-0.03 [facility] Comment on above: Performed By: #### C VDTBH #### [facility] [address] [place] [address] Dr. Radha Suarez IG % 0.3 % Normal 0.0-0.5 [facility] Comment on above: Performed By: #### C VDTBH #### [facility] [address] [place] [address] Dr. Radha Suarez LYMPH # 0.7 103/ul Critically low 1.2-3.8 [facility] Comment on above: Performed By: #### C VDTBH #### [facility] [address] [place] [address] Dr. Radha Suarez Lymphocytes/100 WBC (Bld) 9.8 % Critically low 20.5-60.0 [facility] Comment on above: Performed By: #### C VDTBH #### [facility] [address] [place] [address] Dr. Radha Suarez MANUAL DIFF REQ NO Normal [facility] Comment on above: Performed By: #### C VDTBH #### [facility] [address] [place] [address] Dr. Radha Suarez MCH (RBC) [Entitic mass] 29.8 pg Normal 26.7-34.0 [facility] Comment on above: Performed By: #### C VDTBH #### [facility] [address] [place] [address] Dr. Radha Suarez MCHC (RBC) [Mass/Vol] 31.9 g/dL Normal 29.9-35.2 [facility] Comment on above: Performed By: #### C VDTBH #### [facility] [address] [place] [address] Dr. Radha Suarez MCV (RBC) [Entitic vol] 93.3 fL Normal 81.0-99.0 [facility] Comment on above: Performed By: #### C VDTBH #### [facility] [address] [place] [address] Dr. Radha Suarez MONO # 0.1 103/ul Critically low 0.3-0.8 [facility] Comment on above: Performed By: #### C VDTBH #### [facility] [address] [place] [address] Dr. Radha Suarez Monocytes/100 WBC (Bld) 0.8 % Critically low 1.7-12.0 [facility] Comment on above: Performed By: #### C VDTBH #### [facility] [address] [place] [address] Dr. Radha Suarez NEUT # 6.6 103/ul Critically high 1.4-6.5 [facility] Comment on above: Performed By: #### C VDTBH #### [facility] [address] [place] [address] Dr. Radha Suarez Neutrophils/100 WBC (Bld) 88.8 % Critically high 43.0-75.0 [facility] Comment on above: Performed By: #### C VDTBH #### [facility] [address] [place] [address] Dr. Radha Suarez Platelet mean volume (Bld) [Entitic vol] 9.2 fL Critically low 9.5-13.5 [facility] Comment on above: Performed By: #### C VDTBH #### [facility] [address] [place] [address] Dr. Radha Suarez PLT 368 103/ul Normal 150-450 [facility] Comment on above: Performed By: #### C VDTBH #### [facility] [address] [place] [address] Dr. Rdaha Suarez RBC 4.63 106/ul Normal 4.20-5.40 [facility] Comment on above: Performed By: #### C VDTBH #### [facility] [address] [place] [address] Dr. Radha Suarez WBC 7.4 103/ul Normal 4.0-11.0 [facility] Comment on above: Performed By: #### C VDTBH #### [facility] [address] [place] [address] Dr. Radha Suarez BASO # 0.0 103/ul Normal 0.0-0.1 [facility] Comment on above: Performed By: #### C BC #### [facility] [address] [place] [address] Dr. Radha Suarez Basophils/100 WBC (Bld) 0.2 % Normal 0.2-2.0 [facility] Comment on above: Performed By: #### C BC #### [facility] [address] [place] [address] Dr. Radha Suarez EO # 0.0 103/ul Normal 0.0-0.7 [facility] Comment on above: Performed By: #### C BC #### [facility] [address] [place] [address] Dr. Radha Suarez Eosinophils/100 WBC (Bld) 0.2 % Critically low 0.9-7.0 [facility] Comment on above: Performed By: #### C BC #### [facility] [address] [place] [address] Dr. Radha Suarez Erythrocyte distribution width (RBC) [Ratio] 14.3 % Normal 11.0-15.0 [facility] Comment on above: Performed By: #### C BC #### [facility] [address] [place] [address] Dr. Radha Suarez Hematocrit (Bld) [Volume fraction] 46.6 % Normal 36.0-48.0 [facility] Comment on above: Performed By: #### C BC #### [facility] [address] [place] [address] Dr. Radha Suarez Hemoglobin (Bld) [Mass/Vol] 15.5 g/dL Normal 12.0-16.0 [facility] Comment on above: Performed By: #### C BC #### [facility] [address] [place] [address] Dr. Radha Suarez IG # 0.06 10e3/ul Critically high 0.00-0.03 [facility] Comment on above: Performed By: #### C BC #### [facility] [address] [place] [address] Dr. Radha Suarez IG % 0.5 % Normal 0.0-0.5 [facility] Comment on above: Performed By: #### C BC #### [facility] [address] [place] [address] Dr. Radha Suarez LYMPH # 0.9 103/ul Critically low 1.2-3.8 [facility] Comment on above: Performed By: #### C BC #### [facility] [address] [place] [address] Dr. Radha Suarez Lymphocytes/100 WBC (Bld) 7.2 % Critically low 20.5-60.0 [facility] Comment on above: Performed By: #### C BC #### [facility] [address] [place] [address] Dr. Radha Suarez MANUAL DIFF REQ NO Normal [facility] Comment on above: Performed By: #### C BC #### [facility] [address] [place] [address] Dr. Radha Suarez MCH (RBC) [Entitic mass] 30.7 pg Normal 26.7-34.0 [facility] Comment on above: Performed By: #### C BC #### [facility] [address] [place] [address] Dr. Radha Suarez MCHC (RBC) [Mass/Vol] 33.3 g/dL Normal 29.9-35.2 [facility] Comment on above: Performed By: #### C BC #### [facility] [address] [place] [address] Dr. Radha Suarez MCV (RBC) [Entitic vol] 92.3 fL Normal 81.0-99.0 [facility] Comment on above: Performed By: #### C BC #### [facility] [address] [place] [address] Dr. Radha Suarez MONO # 0.1 103/ul Critically low 0.3-0.8 [facility] Comment on above: Performed By: #### C BC #### [facility] [address] [place] [address] Dr. Radha Suarez Monocytes/100 WBC (Bld) 0.7 % Critically low 1.7-12.0 [facility] Comment on above: Performed By: #### C BC #### [facility] [address] [place] [address] Dr. Radha Suarez NEUT # 11.7 103/ul Critically high 1.4-6.5 [facility] Comment on above: Performed By: #### C BC #### [facility] [address] [place] [address] Dr. Radha Suarez Neutrophils/100 WBC (Bld) 91.2 % Critically high 43.0-75.0 [facility] Comment on above: Performed By: #### C BC #### [facility] [address] [place] [address] Dr. Radha Suarez Platelet mean volume (Bld) [Entitic vol] 9.1 fL Critically low 9.5-13.5 [facility] Comment on above: Performed By: #### C BC #### [facility] [address] [place] [address] Dr. Radha Suarez PLT 394 103/ul Normal 150-450 [facility] Comment on above: Performed By: #### C BC #### [facility] [address] [address] [address] Radha Suarez RBC 5.05 106/ul Normal 4.20-5.40 [facility] Comment on above: Performed By: #### C BC #### [facility] [address] [address] [address] Radha Suarez WBC 12.8 103/ul Critically high 4.0-11.0 [facility] Comment on above: Performed By: #### C BC #### [facility] [address] LSPINE WO CONon 2 CT LSPINE WO CON EXAMINATION: CT LSPI NE WO CON HISTORY: MUSCLE WEAKNESS (GENERALIZED) COMPARISON: No relevant comparison available. TECHNIQUE: Axial, Coronal, and Sagittal CT images were created without I.V. contrast material. Dose reduction techniques were achieved by using automated exposure control and/or adjustment of mA and/or kV according to patient size and/or use of iterative reconstruction technique. FINDINGS: PARASPINAL AREA: No focal mass. Moderate aortic atherosclerosis. BONES: No acute fracture. 2 mm anterolisthesis of L4 in relation L5 related to facet osteoarthropathy. Mild degenerative spondylosis and facet osteoarthropathy. DISC LEVELS: 12-L1: Posterior central disc protrusion with calcification. No central or foraminal stenosis L1-L2: No significant disc/facet abnormality, spinal stenosis, or foraminal stenosis. L2-L3: No significant disc/facet abnormality, spinal stenosis, or foraminal stenosis. L3-L4: Posterior central disc protrusion extending up to 2.1 mm. No central or foraminal stenosis L4-L5: Posterior central disc protrusion extending up to 1.7 mm. No central or foraminal stenosis L5-S1: Posterior central broad-based disc herniation of the protrusion type measuring 6 mm on sagittal image 24. Significant central canal stenosis. 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 This results in central and foraminal stenosis Electronically authenticated by: NAOMIE THEODORE Date: 2022-02-03 09:33 Normal [facility] PROF 14(COMP METB)on 02-03- 022 Albumin [Mass/Vol] 3.9 g/dL Normal 3.4-5.0 [facility] Comment on above: Performed By: #### C VDTBH #### [facility] [address] [address] [address] Radha Suarez Albumin/Globulin [Mass ratio] 1.0 {ratio} Normal [facility] Comment on above: Performed By: #### C VDTBH #### [facility] [address] [address] [address] Radha Suarez ALP [Catalytic activity/Vol] 117 U/L Critically high 46-116 [facility] Comment on above: Performed By: #### C VDTBH #### [facility] [address] [place] [address] Dr. Radha Suarez ALT [Catalytic activity/Vol] 42 U/L Normal 14-59 [facility] Comment on above: Performed By: #### C VDTBH #### [facility] [address] [address] [address] Radha Suarez Anion gap [Moles/Vol] 16.0 mmol/L Normal [facility] Comment on above: Performed By: #### C VDTBH #### [facility] [address] [place] [address] Dr. Radha Suarez AST [Catalytic activity/Vol] 25 U/L Normal 15-37 [facility] Comment on above: Performed By: #### C VDTBH #### [facility] [address] [place] [address] Dr. Radha Suarez Bilirubin [Mass/Vol] 0.2 mg/dL Normal 0.2-1.0 [facility] Comment on above: Performed By: #### C VDTBH #### [facility] [address] [place] [address] Dr. Radha Suarez Calcium [Mass/Vol] 9.6 mg/dL Normal 8.5-10.1 [facility] Comment on above: Performed By: #### C VDTBH #### [facility] [address] [address] [address] Radha Suarez Chloride [Moles/Vol] 104 mmol/L Normal 98-107 [facility] Comment on above: Performed By: #### C VDTBH #### [facility] [address] [address] [address] Radha Suarez CO2 [Moles/Vol] 26.0 mmol/L Normal 21.0-32.0 [facility] Comment on above: Performed By: #### C VDTBH #### [facility] [address] [address] [address] Radha Suarez Creatinine [Mass/Vol] 0.82 mg/dL Normal 0.55-1.02 [facility] Comment on above: Performed By: #### C VDTBH #### [facility] [address] [place] [address] Dr. Radha Suarez EGFR-AF [place] >60 Normal >=60 [facility] Comment on above: Performed By: #### C VDTBH #### [facility] [address] [place] [address] Dr. Radha Suarez EGFR-NON AF [place] >60 Normal >=60 [facility] Comment on above: Performed By: #### C VDTBH #### [facility] [address] [place] [address] Dr. Radha Suarez Globulin (S) [Mass/Vol] 3.8 g/dL Normal [facility] Comment on above: Performed By: #### C VDTBH #### [facility] [address] [place] [address] Dr. Radha Suarez Glucose [Mass/Vol] 153 mg/dL Critically high 74-106 [facility] Comment on above: Performed By: #### C VDTBH #### [facility] [address] [place] [address] Dr. Radha Suarez Potassium [Moles/Vol] 4.0 mmol/L Normal 3.5-5.1 [facility] Comment on above: Performed By: #### C VDTBH #### [facility] [address] [place] [address] Dr. Radha Suarez Protein [Mass/Vol] 7.7 g/dL Normal 6.4-8.2 [facility] Comment on above: Performed By: #### C VDTBH #### [facility] [address] [place] [address] Dr. Radha Suarez Sodium [Moles/Vol] 142 mmol/L Normal 136-145 [facility] Comment on above: Performed By: #### C VDTBH #### [facility] [address] [place] [address] Dr. Radha Suarez Urea nitrogen [Mass/Vol] 10.0 mg/dL Normal 7.0-18.0 [facility] Comment on above: Performed By: #### C VDTBH #### [facility] [address] [place] [address] Dr. Radha Suarez Urea nitrogen/Creatinine [Mass ratio] 12.2 mg/mg Normal [facility] Comment on above: Performed By: #### C VDTBH #### [facility] [address] [place] [address] Dr. Radha Suarez PROF CHEM 8 (BAS METB)on Anion gap [Moles/Vol] 14.9 mmol/L Normal [facility] Comment on above: Performed By: #### C VDTBH #### [facility] [address] [place] [address] Dr. Radha Suarez Calcium [Mass/Vol] 9.3 mg/dL Normal 8.5-10.1 [facility] Comment on above: Result Comment: resu lt to follow Previously reported as: 9.1 On 02/03/2022 09:13 By [email or web address] Performed By: #### C VDTBH #### [facility] [address] [place] [address] Dr. Radha Suarez Chloride [Moles/Vol] 104 mmol/L Normal 98-107 [facility] Comment on above: Performed By: #### C VDTBH #### [facility] [address] [place] [address] Dr. Radha Suarez CO2 [Moles/Vol] 25.7 mmol/L Normal 21.0-32.0 [facility] Comment on above: Performed By: #### C VDTBH #### [facility] [address] [place] [address] Dr. Radha Suarez Creatinine [Mass/Vol] 0.93 mg/dL Normal 0.55-1.02 [facility] Comment on above: Performed By: #### C VDTBH #### [facility] [address] [address] [address] Radha Suarez EGFR-AF [place] >60 Normal >=60 [facility] Comment on above: Performed By: #### C VDTBH #### [facility] [address] [place] [address] Dr. Radha Suarez EGFR-NON AF [place] >60 Normal >=60 [facility] Comment on above: Performed By: #### C VDTBH #### [facility] [address] [place] [address] Dr. Radha Suarez Glucose [Mass/Vol] 173 mg/dL Critically high 74-106 [facility] Comment on above: Performed By: #### C VDTBH #### [facility] [address] [place] [address] Dr. Radha Suarez Potassium [Moles/Vol] 3.6 mmol/L Normal 3.5-5.1 [facility] Comment on above: Performed By: #### C VDTBH #### [facility] [address] [place] [address] Dr. Radha Suarez Sodium [Moles/Vol] 141 mmol/L Normal 136-145 [facility] Comment on above: Performed By: #### C VDTBH #### [facility] [address] [address] [address] Radha Suarez Urea nitrogen [Mass/Vol] 12.0 mg/dL Normal 7.0-18.0 [facility] Comment on above: Performed By: #### C VDTBH #### [facility] [address] [place] [address] Dr. Radha Suarez Urea nitrogen/Creatinine [Mass ratio] 12.9 mg/mg Normal [facility] Comment on above: Performed By: #### C VDTBH #### [facility] [address] [place] [id number] [address] Radha Suarez XR CHEST 1 Von 02-03-2022 XR CHEST 1 V EXAMINATION: XR CHES T 1 V HISTORY: Cough COMPARISON: Chest x-ray 01/14/2022 TECHNIQUE: Portable chest FINDINGS: The lung parenchyma is free of consolidation or infiltrate. No pneumothorax or pleural effusion. The cardiac, mediastinal and hilar contours are normal. The visualized osseous structures exhibit no gross abnormality. IMPRESSION: No acute cardiopulmonary abnormality. Electronically authenticated by: NAOMIE VELASQUEZ Date: 2022-02-02 22:36 Normal [facility] Covid-19 PCR ([facility])on SARS-CoV-2 (COVID-19) RNA RENÉ+probe Ql (Unsp spec) Not detected Normal NOT DETECTED [facility] Comment on above: Result Comment: When diagnostic testing is negative, the possibility of a false negative should be considered in the context of a patient's recent exposures and the presence of clinical signs and symptoms consistent with SARS-CoV-2. This test is not yet approved or cleared by the [place] FDA. When there are no FDA-approved or cleared tests available, and other criteria are met, FDA can make tests available under an emergency access mechanism called an Emergency Use Authorization (EUA). The EUA for this test is supported by the [place] of Health and Human Service's declaration that circumstances exist to justify the emergency use of in vitro diagnostics for the detection and/or diagnosis of the virus that causes COVID-19. This EUA will remain in effect for the duration of the COVID-19 declaration justifying emergency of IVDs, unless it is terminated or revoked by the FDA (after which the test may no longer be used). Performed By: #### C BC #### [facility] [address] [place] [address] [id number] [address] Radha Suarez BNPon 01-14-2022 Natriuretic peptide B (Bld) [Mass/Vol] 86.0 pg/mL Normal <=900.0 [facility] Comment on above: Performed By: #### B AIRCRAFT INSTRUMENT TESTER, CMP #### [facility] [address] [place] [address] Dr. Radha Suarez CBC AUTO DIFFon 01-14-2022 BASO # 0.1 103/ul Normal 0.0-0.1 [facility] Comment on above: Performed By: #### C VDTBH #### [facility] [address] [place] [address] Dr. Radha Suarez Basophils/100 WBC (Bld) 0.6 % Normal 0.2-2.0 [facility] Comment on above: Performed By: #### C VDTBH #### [facility] [address] [place] [address] Dr. Radha Suarez EO # 0.1 103/ul Normal 0.0-0.7 [facility] Comment on above: Performed By: #### C VDTBH #### [facility] [address] [place] [address] Dr. Radha Suarez Eosinophils/100 WBC (Bld) 1.1 % Normal 0.9-7.0 [facility] Comment on above: Performed By: #### C VDTBH #### [facility] [address] [place] [address] Dr. Radha Suarez Erythrocyte distribution width (RBC) [Ratio] 14.6 % Normal 11.0-15.0 [facility] Comment on above: Performed By: #### C VDTBH #### [facility] [address] [place] [address] Dr. Radha Suarez Hematocrit (Bld) [Volume fraction] 43.8 % Normal 36.0-48.0 [facility] Comment on above: Performed By: #### C VDTBH #### [facility] [address] [place] [address] Dr. Radha Suarez Hemoglobin (Bld) [Mass/Vol] 14.7 g/dL Normal 12.0-16.0 [facility] Comment on above: Performed By: #### C VDTBH #### [facility] [address] [place] [address] Dr. Radha Suarez IG # 0.04 10e3/ul Critically high 0.00-0.03 [facility] Comment on above: Performed By: #### C VDTBH #### [facility] [address] [address] [address] Radha Suarez IG % 0.4 % Normal 0.0-0.5 [facility] Comment on above: Performed By: #### C VDTBH #### [facility] [address] [address] [address] Radha Suarez LYMPH # 1.7 103/ul Normal 1.2-3.8 [facility] Comment on above: Performed By: #### C VDTBH #### [facility] [address] [address] [address] Radha Suarez Lymphocytes/100 WBC (Bld) 19.0 % Critically low 20.5-60.0 [facility] Comment on above: Performed By: #### C VDTBH #### [facility] [address] [address] [address] Radha Suarez MANUAL DIFF REQ NO Normal [facility] Comment on above: Performed By: #### C VDTBH #### [facility] [address] [address] [address] Radha Suarez MCH (RBC) [Entitic mass] 30.5 pg Normal 26.7-34.0 [facility] Comment on above: Performed By: #### C VDTBH #### [facility] [address] [address] [address] Radha Suarez MCHC (RBC) [Mass/Vol] 33.6 g/dL Normal 29.9-35.2 [facility] Comment on above: Performed By: #### C VDTBH #### [facility] [address] [address] [address] Radha Suarez MCV (RBC) [Entitic vol] 90.9 fL Normal 81.0-99.0 [facility] Comment on above: Performed By: #### C VDTBH #### [facility] [address] [address] [address] Radha Suarez MONO # 0.6 103/ul Normal 0.3-0.8 [facility] Comment on above: Performed By: #### C VDTBH #### [facility] [address] [place] [address] Dr. Radha Suarez Monocytes/100 WBC (Bld) 6.9 % Normal 1.7-12.0 [facility] Comment on above: Performed By: #### C VDTBH #### [facility] [address] [place] [address] Dr. Radha Suarez NEUT # 6.5 103/ul Normal 1.4-6.5 [facility] Comment on above: Performed By: #### C VDTBH #### [facility] [address] [place] [address] Dr. Radha Suarez Neutrophils/100 WBC (Bld) 72.0 % Normal 43.0-75.0 [facility] Comment on above: Performed By: #### C VDTBH #### [facility] [address] [place] [address] Dr. Radha Suarez Platelet mean volume (Bld) [Entitic vol] 8.9 fL Critically low 9.5-13.5 [facility] Comment on above: Performed By: #### C VDTBH #### [facility] [address] [place] [address] Dr. Radha Suarez PLT 324 103/ul Normal 150-450 [facility] Comment on above: Performed By: #### C VDTBH #### [facility] [address] [place] [address] Dr. Radha Suarez RBC 4.82 106/ul Normal 4.20-5.40 [facility] Comment on above: Performed By: #### C VDTBH #### [facility] [address] [place] [address] Dr. Radha Suarez WBC 9.0 103/ul Normal 4.0-11.0 [facility] Comment on above: Performed By: #### C VDTBH #### [facility] [address] [place] [address] Dr. Radha Suarez Covid-19 PCR ([facility])on 12-26 SARS-CoV-2 (COVID-19) RNA RENÉ+probe Ql (Unsp spec) Not detected Normal NOT DETECTED [facility] Comment on above: Result Comment: When diagnostic testing is negative, the possibility of a false negative should be considered in the context of a patient's recent exposures and the presence of clinical signs and symptoms consistent with SARS-CoV-2. This test is not yet approved or cleared by the [place] FDA. When there are no FDA-approved or cleared tests available, and other criteria are met, FDA can make tests available under an emergency access mechanism called an Emergency Use Authorization (EUA). The EUA for this test is supported by the [place] of Health and Human Service's declaration that circumstances exist to justify the emergency use of in vitro diagnostics for the detection and/or diagnosis of the virus that causes COVID-19. This EUA will remain in effect for the duration of the COVID-19 declaration justifying emergency of IVDs, unless it is terminated or revoked by the FDA (after which the test may no longer be used). Performed By: #### C VDTB #### [facility] [address] [place] [address] Dr. Radha Suarez PROF 14(COMP METB)on 022 Albumin [Mass/Vol] 3.9 g/dL Normal 3.4-5.0 [facility] Comment on above: Performed By: #### B AIRCRAFT INSTRUMENT TESTER, CMP #### [facility] [address] [place] [address] Dr. Radha Suarez Albumin/Globulin [Mass ratio] 1.0 {ratio} Normal [facility] Comment on above: Performed By: #### B AIRCRAFT INSTRUMENT TESTER, CMP #### [facility] [address] [place] [address] Dr. Radha Suarez ALP [Catalytic activity/Vol] 96 U/L Normal 46-116 [facility] Comment on above: Performed By: #### B AIRCRAFT INSTRUMENT TESTER, CMP #### [facility] [address] [place] [address] Dr. Radha Suarez ALT [Catalytic activity/Vol] 26 U/L Normal 14-59 [facility] Comment on above: Performed By: #### B AIRCRAFT INSTRUMENT TESTER, CMP #### [facility] [address] [address] [address] Radha Suarez Anion gap [Moles/Vol] 13.6 mmol/L Normal [facility] Comment on above: Performed By: #### B AIRCRAFT INSTRUMENT TESTER, CMP #### [facility] [address] [address] [address] Radha Suarez AST [Catalytic activity/Vol] 17 U/L Normal 15-37 [facility] Comment on above: Performed By: #### B AIRCRAFT INSTRUMENT TESTER, CMP #### [facility] [address] [place] [address] Dr. Radha Suarez Bilirubin [Mass/Vol] 0.3 mg/dL Normal 0.2-1.0 [facility] Comment on above: Performed By: #### B AIRCRAFT INSTRUMENT TESTER, CMP #### [facility] [address] [place] [address] Dr. Radha Suarez Calcium [Mass/Vol] 9.1 mg/dL Normal 8.5-10.1 [facility] Comment on above: Performed By: #### B AIRCRAFT INSTRUMENT TESTER, CMP #### [facility] [address] [place] [address] Dr. Radha Suarez Chloride [Moles/Vol] 106 mmol/L Normal 98-107 [facility] Comment on above: Performed By: #### B AIRCRAFT INSTRUMENT TESTER, CMP #### [facility] [address] [place] [address] Dr. Radha Suarez CO2 [Moles/Vol] 26.8 mmol/L Normal 21.0-32.0 [facility] Comment on above: Performed By: #### B AIRCRAFT INSTRUMENT TESTER, CMP #### [facility] [address] [place] [address] Dr. Radha Suarez Creatinine [Mass/Vol] 0.94 mg/dL Normal 0.55-1.02 [facility] Comment on above: Performed By: #### B AIRCRAFT INSTRUMENT TESTER, CMP #### [facility] [address] [place] [address] Dr. Radha Suarez EGFR-AF [place] >60 Normal >=60 [facility] Comment on above: Performed By: #### B AIRCRAFT INSTRUMENT TESTER, CMP #### [facility] [address] [address] [address] Radha Suarez EGFR-NON AF [place] >60 Normal >=60 [facility] Comment on above: Performed By: #### B AIRCRAFT INSTRUMENT TESTER, CMP #### [facility] [address] [address] [address] Radha Suarez Globulin (S) [Mass/Vol] 4.1 g/dL Normal [facility] Comment on above: Performed By: #### B AIRCRAFT INSTRUMENT TESTER, CMP #### [facility] [address] [address] [address] Radha Suarez Glucose [Mass/Vol] 115 mg/dL Critically high 74-106 [facility] Comment on above: Performed By: #### B AIRCRAFT INSTRUMENT TESTER, CMP #### [facility] [address] [place] [address] Dr. Radha Suarez Potassium [Moles/Vol] 3.4 mmol/L Critically low 3.5-5.1 [facility] Comment on above: Performed By: #### B AIRCRAFT INSTRUMENT TESTER, CMP #### [facility] [address] [place] [address] Dr. Radha Suarez Protein [Mass/Vol] 8.0 g/dL Normal 6.4-8.2 [facility] Comment on above: Performed By: #### B AIRCRAFT INSTRUMENT TESTER, CMP #### [facility] [address] [place] [address] Dr. Radha Suarez Sodium [Moles/Vol] 143 mmol/L Normal 136-145 [facility] Comment on above: Performed By: #### B AIRCRAFT INSTRUMENT TESTER, CMP #### [facility] [address] [place] [address] Dr. Radha Suarez Urea nitrogen [Mass/Vol] 13.0 mg/dL Normal 7.0-18.0 [facility] Comment on above: Performed By: #### B AIRCRAFT INSTRUMENT TESTER, CMP #### [facility] [address] [place] [address] Dr. Radha Suarez Urea nitrogen/Creatinine [Mass ratio] 13.8 mg/mg Normal [facility] Comment on above: Performed By: #### B AIRCRAFT INSTRUMENT TESTER, CMP #### [facility] [address] [place] [address] Dr. Radha Suarez XR CHEST 1 Von 01-14-2022 XR CHEST 1 V EXAM: XR CHEST 1 V a t 1920 hours HISTORY: SHORTNESS OF BREATH COMPARISON: 07/23/2021 TECHNIQUE: AP upright portable chest x-ray FINDINGS: The heart is not enlarged and the vasculature is not distended. No acute infiltrate, effusion or pneumothorax is identified. Hardware projects over the lower cervical spine. IMPRESSION: No acute infiltrate or evidence of cardiac decompensation. The overall appearance of the chest is essentially unchanged. Electronically authenticated by: ZIA DESAI Date: 2022-01-14 20:21 Normal [facility] CBC AUTO DIFFon 01-13-2022 BASO # 0.0 103/ul Normal 0.0-0.1 [facility] Comment on above: Performed By: #### C VDTBH #### [facility] [address] [place] [address] Dr. Radha Suarez Basophils/100 WBC (Bld) 0.5 % Normal 0.2-2.0 [facility] Comment on above: Performed By: #### C VDTBH #### [facility] [address] [place] [address] Dr. Radha Suarez EO # 0.1 103/ul Normal 0.0-0.7 [facility] Comment on above: Performed By: #### C VDTBH #### [facility] [address] [place] [address] Dr. Radha Suarez Eosinophils/100 WBC (Bld) 1.0 % Normal 0.9-7.0 [facility] Comment on above: Performed By: #### C VDTBH #### [facility] [address] [place] [address] Dr. Radha Suarez Erythrocyte distribution width (RBC) [Ratio] 14.6 % Normal 11.0-15.0 [facility] Comment on above: Performed By: #### C VDTBH #### [facility] [address] [place] [address] Dr. Radha Suarez Hematocrit (Bld) [Volume fraction] 42.3 % Normal 36.0-48.0 [facility] Comment on above: Performed By: #### C VDTBH #### [facility] [address] [address] [address] Radha Suarez Hemoglobin (Bld) [Mass/Vol] 13.7 g/dL Normal 12.0-16.0 [facility] Comment on above: Performed By: #### C VDTBH #### [facility] [address] [address] [address] Radha Suarez IG # 0.04 10e3/ul Critically high 0.00-0.03 [facility] Comment on above: Performed By: #### C VDTBH #### [facility] [address] [address] [address] Radha Suarez IG % 0.5 % Normal 0.0-0.5 [facility] Comment on above: Performed By: #### C VDTBH #### [facility] [address] [place] [address] Dr. Radha Suarez LYMPH # 1.8 103/ul Normal 1.2-3.8 [facility] Comment on above: Performed By: #### C VDTBH #### [facility] [address] [place] [address] Dr. Radha Suarez Lymphocytes/100 WBC (Bld) 21.4 % Normal 20.5-60.0 [facility] Comment on above: Performed By: #### C VDTBH #### [facility] [address] [place] [address] Dr. Radha Suarez MANUAL DIFF REQ NO Normal [facility] Comment on above: Performed By: #### C VDTBH #### [facility] [address] [place] [address] Dr. Radha Suarez MCH (RBC) [Entitic mass] 30.0 pg Normal 26.7-34.0 [facility] Comment on above: Performed By: #### C VDTBH #### [facility] [address] [place] [address] Dr. Radha Suarez MCHC (RBC) [Mass/Vol] 32.4 g/dL Normal 29.9-35.2 [facility] Comment on above: Performed By: #### C VDTBH #### [facility] [address] [place] [address] Dr. Radha Suarez MCV (RBC) [Entitic vol] 92.8 fL Normal 81.0-99.0 [facility] Comment on above: Performed By: #### C VDTBH #### [facility] [address] [place] [address] Dr. Rahda Suarez MONO # 0.7 103/ul Normal 0.3-0.8 [facility] Comment on above: Performed By: #### C VDTBH #### [facility] [address] [place] [address] Dr. Radha Suarez Monocytes/100 WBC (Bld) 7.9 % Normal 1.7-12.0 [facility] Comment on above: Performed By: #### C VDTBH #### [facility] [address] [place] [address] Dr. Radha Suarez NEUT # 5.6 103/ul Normal 1.4-6.5 [facility] Comment on above: Performed By: #### C VDTBH #### [facility] [address] [place] [address] Dr. Radha Suarez Neutrophils/100 WBC (Bld) 68.7 % Normal 43.0-75.0 [facility] Comment on above: Performed By: #### C VDTBH #### [facility] [address] [place] [address] Dr. Radha Suarez Platelet mean volume (Bld) [Entitic vol] 9.5 fL Normal 9.5-13.5 [facility] Comment on above: Performed By: #### C VDTBH #### [facility] [address] [place] [address] Dr. Radha Suarez PLT 321 103/ul Normal 150-450 [facility] Comment on above: Performed By: #### C VDTBH #### [facility] [address] [place] [address] Dr. Radha Suarez RBC 4.56 106/ul Normal 4.20-5.40 [facility] Comment on above: Performed By: #### C VDTBH #### [facility] [facility] [address] [address] [address] Radha Suarez WBC 8.2 103/ul Normal 4.0-11.0 [facility] Comment on above: Performed By: #### C VDTBH #### [facility] [address] [address] [address] Radha Suarez FREE T3on 01-13-2022 FREE T3 1.99 pg/mlL Critically low 2.18-3.98 [facility] Comment on above: Performed By: #### C BC #### [facility] [address] [address] [address] Radha Suarez FREE T4on 01-13-2022 Free T4 [Mass/Vol] 1.02 ng/dL Normal 0.76-1.46 [facility] Comment on above: Performed By: #### C VDTBH #### [facility] [address] [address] [address] Radha Suarez MRI LUMBAR SPINE WO IVCONon 01-13-2022 MRI LUMBAR SPINE WO IVCON * * *Final Report* * * DATE OF EXAM: Jan 13 2022 2:53PM [facility] 0303 - MRI LUMBAR SPINE WO IVCON / PROCEDURE REASON: Radiculopathy of lumbar region * * * * Physician Interpretation * * * * EXAMINATION: MRI LUMBAR SPINE WO IVCON, MRI THORACIC SPINE WO IVCON CLINICAL HISTORY: Radiculopathy of lumbar region. Preoperative evaluation before epidural spinal stimulator placement. TECHNIQUE: Routine lumbosacral and thoracic spine MR protocol without gadolinium. MQ: [id number] COMPARISON: Plain film lumbar spine from 12/03/2021 RESULT: THORACIC: Counting reference: Lumbosacral junction. For the purposes of this report, L4-5 is considered the level of the iliac crest and there are 5 lumbar-type vertebrae. Anatomic variant: Transitional L5 vertebral body. There are 12 rib-bearing thoracic vertebrae. The 12th rib has tiny rudimentary vertebrae best visualized on the plain film exam. Localizer images: ACDF at C6-C7. Alignment: Alignment is anatomic. Cord: The thoracic spinal cord is within normal limits of signal intensity and morphology. Bone marrow signal/fracture: No evidence of pathologic marrow infiltration. No evidence of prior fracture. Thoracic soft tissues: There is a hemangioma at T7. The paraspinal soft tissues are within normal limits. Canal and foramina: The thoracic canal and foramina are patent within the constraints of the study. LUMBAR: Counting reference: Lumbosacral junction. For the purposes of this report, L4-5 is considered the level of the iliac crest and there are 5 lumbar-type vertebrae. Anatomic variant: Transitional L5 vertebral body. Localizer images: Unremarkable. Alignment: Alignment is anatomic. Bone marrow signal/fracture: No evidence of pathologic marrow infiltration. No evidence of prior fracture. Conus: The conus is within normal limits of signal intensity and morphology terminating at L1-L2. Nerve roots are normal in appearance. Paraspinal soft tissues: Paraspinal soft tissues are within normal limits. T12-L1: Canal and foramina are patent. L1-L2: Canal and foramina are patent. L2-L3: Canal and foramina are patent L3-L4: Canal and foramina are patent L4-L5: Mild narrowing the spinal canal due to left paracentral disc protrusion. There are hypertrophic changes in the facet joints with small left-sided facet effusion. Foramina are mildly narrowed. L5-S1: Canal and foramina are patent. Sacrum and iliac wings: The visualized sacrum and iliac wings are within normal limits. The presacral soft tissues are normal in appearance. IMPRESSION: Thoracic: Normal MRI thoracic spine. Lumbar: Left paracentral disc protrusion filling the left lateral recess at L4-L5 causing mild narrowing the spinal canal. Degenerative facet disease at L5-S1. Anatomic Thoracic/Lumbar Variant: Transitional L5 vertebral body. L4-5 is considered the level of the iliac crest and there are 5 lumbar-type vertebrae. Ash Worker: PSCB Transcribe Date/Time: Jan 13 2022 3:43P Dictated by : KIERAN MONTOYA MD This examination was interpreted and the report reviewed and electronically signed by: KIERAN MONTOYA MD on Jan 13 2022 3:50PM EST [id number] Normal [facility] MRI THORACIC SPINE WO IVCONo n 01-13-2022 MRI THORACIC SPINE WO IVCON * * *Final Report* * * DATE OF EXAM: Jan 13 2022 2:53PM [facility] 0325 - MRI THORACIC SPINE WO IVCON / PROCEDURE REASON: Radiculopathy of lumbar region * * * * Physician Interpretation * * * * EXAMINATION: MRI LUMBAR SPINE WO IVCON, MRI THORACIC SPINE WO IVCON CLINICAL HISTORY: Radiculopathy of lumbar region. Preoperative evaluation before epidural spinal stimulator placement. TECHNIQUE: Routine lumbosacral and thoracic spine MR protocol without gadolinium. MQ: [id number] COMPARISON: Plain film lumbar spine from 12/03/2021 RESULT: THORACIC: Counting reference: Lumbosacral junction. For the purposes of this report, L4-5 is considered the level of the iliac crest and there are 5 lumbar-type vertebrae. Anatomic variant: Transitional L5 vertebral body. There are 12 rib-bearing thoracic vertebrae. The 12th rib has tiny rudimentary vertebrae best visualized on the plain film exam. Localizer images: ACDF at C6-C7. Alignment: Alignment is anatomic. Cord: The thoracic spinal cord is within normal limits of signal intensity and morphology. Bone marrow signal/fracture: No evidence of pathologic marrow infiltration. No evidence of prior fracture. Thoracic soft tissues: There is a hemangioma at T7. The paraspinal soft tissues are within normal limits. Canal and foramina: The thoracic canal and foramina are patent within the constraints of the study. LUMBAR: Counting reference: Lumbosacral junction. For the purposes of this report, L4-5 is considered the level of the iliac crest and there are 5 lumbar-type vertebrae. Anatomic variant: Transitional L5 vertebral body. Localizer images: Unremarkable. Alignment: Alignment is anatomic. Bone marrow signal/fracture: No evidence of pathologic marrow infiltration. No evidence of prior fracture. Conus: The conus is within normal limits of signal intensity and morphology terminating at L1-L2. Nerve roots are normal in appearance. Paraspinal soft tissues: Paraspinal soft tissues are within normal limits. T12-L1: Canal and foramina are patent. L1-L2: Canal and foramina are patent. L2-L3: Canal and foramina are patent L3-L4: Canal and foramina are patent L4-L5: Mild narrowing the spinal canal due to left paracentral disc protrusion. There are hypertrophic changes in the facet joints with small left-sided facet effusion. Foramina are mildly narrowed. L5-S1: Canal and foramina are patent. Sacrum and iliac wings: The visualized sacrum and iliac wings are within normal limits. The presacral soft tissues are normal in appearance. IMPRESSION: Thoracic: Normal MRI thoracic spine. Lumbar: Left paracentral disc protrusion filling the left lateral recess at L4-L5 causing mild narrowing the spinal canal. Degenerative facet disease at L5-S1. Anatomic Thoracic/Lumbar Variant: Transitional L5 vertebral body. L4-5 is considered the level of the iliac crest and there are 5 lumbar-type vertebrae. Ash Worker: PSCB Transcribe Date/Time: Jan 13 2022 3:43P Dictated by : KIERAN MONTOYA MD This examination was interpreted and the report reviewed and electronically signed by: KIERAN MONTOYA MD on Jan 13 2022 3:50PM EST [id number] Normal [facility] No Panel Informationon 01-13 [facility] PROF CHEM 8 (BAS METB)on Anion gap [Moles/Vol] 11.3 mmol/L Normal [facility] Comment on above: Performed By: #### C BC #### [facility] [address] [place] [address] Dr. Radha Suarez Calcium [Mass/Vol] 9.5 mg/dL Normal 8.5-10.1 [facility] Comment on above: Performed By: #### C BC #### [facility] [address] [address] [address] Radha Suarez Chloride [Moles/Vol] 105 mmol/L Normal 98-107 [facility] Comment on above: Performed By: #### C BC #### [facility] [address] [address] [address] Radha Suarez CO2 [Moles/Vol] 28.2 mmol/L Normal 21.0-32.0 [facility] Comment on above: Performed By: #### C BC #### [facility] [address] [address] [address] Radha Suarez Creatinine [Mass/Vol] 0.86 mg/dL Normal 0.55-1.02 [facility] Comment on above: Performed By: #### C BC #### [facility] [address] [place] [address] Dr. Radha Suarez EGFR-AF [place] >60 Normal >=60 [facility] Comment on above: Performed By: #### C BC #### [facility] [address] [place] [address] Dr. Radha Suarez EGFR-NON AF [place] >60 Normal >=60 [facility] Comment on above: Performed By: #### C BC #### [facility] [address] [address] [address] Radha Suarez Glucose [Mass/Vol] 99 mg/dL Normal 74-106 [facility] Comment on above: Performed By: #### C BC #### [facility] [address] [place] [address] Dr. Radha Suarez Potassium [Moles/Vol] 3.5 mmol/L Normal 3.5-5.1 [facility] Comment on above: Performed By: #### C BC #### [facility] [address] [place] [address] Dr. Radha Suarez Sodium [Moles/Vol] 141 mmol/L Normal 136-145 [facility] Comment on above: Performed By: #### C BC #### [facility] [address] [place] [address] Dr. Radha Suarez Urea nitrogen [Mass/Vol] 15.0 mg/dL Normal 7.0-18.0 [facility] Comment on above: Performed By: #### C BC #### [facility] [address] [place] [address] Dr. Radha Suarez Urea nitrogen/Creatinine [Mass ratio] 17.4 mg/mg Normal [facility] Comment on above: Performed By: #### C BC #### [facility] [address] [place] [address] Dr. Radha Suarez TSHon 01-13-2022 TSH 5.692 uIU/mL Critically high 0.358-3.740 [facility] Comment on above: Performed By: #### C BC #### [facility] [address] [place] [address] Dr. Radha Suarez C-REACTIVE PROTEIN (CRP)on 0 12-04-2021 CRP [Mass/Vol] 0.9 mg/dL High <0.9 mg/dL [facility] ESR Westergren method (Bld) [Velocity]on 12-04-2021 ESR (Bld) [Velocity] 17 mm/h 0 - 20 mm/hr [facility] HbA1c (Bld)on 12-04-2021 Average glucose Estimated from glycated hemoglobin (Bld) [Mass/Vol] 111 mg/dL [facility] HbA1c (Bld) [Mass fraction] 5.5 % 4.3 - 5.6 % [facility] CNOVon 12-03-2021 CNOV Office Visit (PAINLN ) NATO SHORT ([id number]) 1970 F Date Time Provider Department 12/03/21 3:00 PM LAZARUS JOHNSON During your visit today, we recorded the following information about you: Pulse Height 85/minute 1.524 m Lazarus Johnson MD 12/14/2021 9:39 AM Signed SUBJECTIVE: Ms. Short a 51 year old female referred by Self Referred presents with the complaint of low back pain. She wants to know if she is a candidate for SCS (saw [employer] website). Patient reports the date of onset of symptoms as many years and describes the location of the pain as midline. The pain is chronic, dull, aching, burning, sharp and dull, and rated as moderate, with radiation, to both feet. PAIN RATIO: (back:leg): Back > Leg Patient reports that LBP is increased by coughing, standing, walking and lying down and relieved by sitting. Ambulation distance (before needing to sit): Not at all Standing time (before needing to sit): 5 minutes OTHER BACK PAIN SYMPTOMS: NIGHT PAIN: Yes -unable to stay asleep PARESTHESIA: No POOR SLEEP: Yes BOWEL/BLADDER INCONTINENCE OR RETENTION: No ACTIVITY LIMITATIONS: ADLs PREVIOUS TREATMENTS LASTING SIX WEEKS IN THE LAST SIX MONTHS Active conservative therapy lasting 6 weeks in the last six months (see below) 1. Physical therapy: No 2. Home exercise program after PT: No 3. Occupational therapy: No 4. A physician supervised home exercise program (HEP): No 5. Neurosurgeon: No Passive conservative therapy lasting 6 weeks in the last six months (see below) 1. Medical devises: No 2. Acupuncture: No 3. Tens unit: No 4. Prescription pain medication: No 5. 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 HISTORY OF TRAUMA/OVERUSE OF AREA: No REVIEW OF SYSTEMS: GENERAL: Negative for malaise, significant weight loss and fever SEE HPI HEENT: Negative for frequent or significant headaches NECK: Negative for lumps, goiter, pain and significant neck swelling RESPIRATORY: Negative for cough, hemoptysis, wheezing, COPD, dyspnea or shortness of breath CARDIOVASCULAR: Negative for chest pain, leg swelling, hypertension, CHF or palpitations GI: No nausea, vomiting, or diarrhea : No history of dysuria, frequency or incontinence ADJUNCT PHILOSOPHY FACULTY: Negative for abnormal vaginal bleeding, abnormal vaginal discharge. MUSCULOSKELETAL: Low back SKIN: Negative for lesions, rash, and itching PSYCH: Positive for Depression and Anxiety HEMATOLOGY/LYMPHOLOGY Negative for prolonged bleeding, bruising easily or swollen nodes ENDOCRINE: Negative for cold or heat intolerance, polyuria, polydipsia and goiter PAST MEDICAL HISTORY Diagnosis Date - Depression - Generalized anxiety disorder - GERD (gastroesophageal reflux disease) - Hyperthyroidism - Low back pain - Neck pain PAST MEDICAL HISTORY Diagnosis Date - Depression - Generalized anxiety disorder - GERD (gastroesophageal reflux disease) - Hyperthyroidism - Low back pain - Neck pain No past surgical history on file. EXAMINATION: [id number] IOR: Scoliosis: No Pelvic Tilt: No Leg Length discrepancy: Equal LATERAL: Cervical Lordosis: No Thoracic Kyphosis: No Lumbar Lordosis: No RANGE OF MOTION CERVICAL: Flexion: Not Limited Extension: Limited Rotation L: Limited Rotation R: Limited LUMBAR: Flexion: Not Limited Extension: Limited Rotation L: Not Limited Rotation R: Not Limited FINGER TO FLOOR DISTANCE: Knee Gait: Normal REFLEXES R L Biceps (C6): 1-2+ 1-2+ Triceps (C7): 1-2+ 1-2+ Brachioradiolis (C6): 1-2+ 1-2+ Ankle (S1): 2+ 2+ Knee (L4): 2+ 2+ STRENGTH (0-5): R L Deltoid (AB:C5,6): 5 5 Biceps (Flex:C5,6): 5 5 Wrist Ext.(C6,7): 5 5 Interrosei (C8,T1): 5 5 PSOAS (L2,3): 5 5 Gluteus (L5,S1,2): 5 5 Quadriceps (L3,4): 5 5 EHL (L5): 5 5 Soleus (S1): 5 5 SLR: Seated - Right Negative, Left Negative Babinski Negative Negative Neg Gaxiola's HIP: ROM is WNL without pain in flexion, extension and internal rotation. FABERES: Negative JENNIFER TEST 1) Tenderness: Appropriate 2) Simulation/Axial Loading/ROT: Appropriate 3) Distraction: Seated SLR: Appropriate 4) Reqional Disturbances: Appropriate 5) Overreaction: Appropriate PHYSICAL EXAMINATION: Pulse 85 Ht 152.4 cm (5') SpO2 96% GENERAL APPEARANCE: Well appearing, in no acute distress SKIN: Skin color, texture, turgor normal. No rashes or lesions. HEAD: Normocephalic. No masses, lesions, tenderness or abnormalities EYES: Conjunctivae/corneas clear. Pupils are equally round and reactive to light. Extraocular movements are intact. NECK: Neck supple, no adenopathy; thyroid symmetric, normal size, no bruits. LUNGS: Lungs clear to auscultation, No wheezing or rhonchi HEART: negative. RRR without murmur, gallop, or rubs. No ectopy. ABDOMEN: Abdomen soft, non-tender. Bowel sounds no (more content not included)... Normal [facility] CRP SerPl-mCncon 12-03-2021 CRP [Mass/Vol] 0.9 mg/dL High <0.9 [facility] Comment on above: Order Comment: Speci men Type: BLOOD SPECIMEN Ordering Facility: [facility] Address: [address] [place], [place] [id number] Performed By: #### 1 [id number] #### [facility] CLIA [id number] [address] [place] [address] [place] [address] [place] ESR Westergren method (Bld) [Velocity]on 12-03-2021 ESR (Bld) [Velocity] 17 mm/h Normal 0-20 [facility] Comment on above: Order Comment: Charles ayala Type: BLOOD SPECIMEN Ordering Facility: [facility] Address: [address] [place] [address] Performed By: #### 4 [id number] #### [facility] CLIA [id number] [address] [place] [address] HGB A1Con 12-03-2021 Average glucose Estimated from glycated hemoglobin (Bld) [Mass/Vol] 111 mg/dL Normal [facility] Comment on above: Order Comment: Charles ayala Type: BLOOD SPECIMEN Ordering Facility: [facility] Address: [address] [place] [address] Result Comment: eAG: (Estimated average glucose) is a calculated value from HgbA1c and is cordage sales representative of the average blood glucose level in the last 2-3 month period. Performed By: #### H BA1C #### [facility] CLIA [id number] [address] [place] [address] STATES [facility] HbA1c (Bld) [Mass fraction] 5.5 % Normal 4.3-5.6 [facility] Comment on above: Order Comment: Charles ayala Type: BLOOD SPECIMEN Ordering Facility: [facility] Address: [address] [place] [address] Result Comment: Amer [place] Diabetes Association guidelines indicate that patients with HgbA1c in the range 5.7-6.4% are at increased risk for development of diabetes, and intervention by lifestyle modification may be beneficial. HgbA1c greater or equal to 6.5% is considered diagnostic of diabetes. Performed By: #### H BA1C #### [facility] CLIA [id number] [address] [place] [address] [place] No Panel Informationon 12-03 [facility] XR LUMBAR 3V AP/LAT/L5-S1on 12-03-2021 XR LUMBAR 3V AP/LAT/L5-S1 * * *Final Report* * * DATE OF EXAM: Dec 03 2021 4:39PM [id number] [id number] - XR LUMBAR 3V AP/LAT/L5-S1 / PROCEDURE REASON: multiple diagnoses * * * * Physician Interpretation * * * * XR LUMBAR 3V AP/LAT/L5-S1 PROVIDED HISTORY: Radiculopathy of lumbar region Degeneration of lumbar or lumbosacral intervertebral disc Radicular pain of left lower extremity Discogenic low back pain COMPARISON: No previous similar exams are available for comparison TECHNIQUE: AP, lateral, and coned-down sacral views of the lumbosacral spine. Counting reference: Lumbosacral junction. For the purposes of this report, L4-5 is considered the level of the iliac crest and assume there are 5 lumbar-type vertebrae. Anatomic variant: None. RESULT: 5 mm anterior subluxation at L4-5. Advanced facet degenerative changes at L3-4, L4-5, and L5-S1. No acute fractures seen. Vascular calcifications are present. IMPRESSION: Anterior subluxation at L4-5 with facet degenerative changes Ash [facility] Transcribe Date/Time: Dec 04 2021 8:19P Dictated by : PARMJIT PIMENTEL MD This examination was interpreted and the report reviewed and electronically signed by: PARMJIT PIMENTEL MD on Dec 04 2021 8:20PM EST [id number] Normal [facility] CNPKeri 12-02-2021 CNPN Telephone (PAINLN) NATO SHORT ([id number]) 1970 F Date Time Provider Department 12/02/21 LAZARUS JOHNSON During your visit today, we recorded the following information about you: Keren Rosales MA 12/02/2021 1:49 PM Signed Patient was advised of the following: This is a follow up phone call regarding your appointment with Dr Johnson, which you are scheduled to see at [facility] on 12/03/2021 1) Have you been evaluated and treated by a Pain Management physician currently or in the past? If so, we will need a release of care from your previous physician. 2) Have you had any outside x-rays or MRI's related to the pain you are being seen for? If so, please bring copies to your appointment with you. Also please recall that our physicians will not take over medications. You will need to make sure you have enough pain medications to last until your follow up appointment with your current prescribing physician. Dr. Johnson is primarily an interventional pain management provider, which means, they treat with physical therapy, injections and non-narcotic medications. Any questions or you need to reschedule please call us at [phone]. Left VM with new patient policy advised tpo call office with any questions or concerns'Keren Rosales MA Allergies As of Date: 12/02/2021 Noted Allergy Reaction PENICILLINS 04/11/2013 7 - Swelling Date Reviewed: Never Reviewed Reason for Visit: Appointment [186] Cmt: pain management Prescriptions as of 12/02/2021 - cyclobenzaprine (FLEXERIL) 10 mg tablet Take 10 mg by mouth. - gabapentin (NEURONTIN) 100 mg capsule Take 100 mg by mouth. - levothyroxine (SYNTHROID) 112 mcg tablet Take 112 mcg by mouth. - liothyronine (CYTOMEL) 5 mcg tablet Take 5 mcg by mouth. - omeprazole (PRILOSEC) 40 mg capsule Take 40 mg by mouth. Problem List As Of Date: 12/02/2021 (None) Encounter Status:Closed by KEREN ROSALES on 12/02/21 Normal [facility] XR FOOT LT MIN 3 VIEWSon XR FOOT LT MIN 3 VIEWS EXAM: XR FOOT LT MIN 3 VIEWS HISTORY: Left foot pain COMPARISON: None. TECHNIQUE: 3 views FINDINGS: No osseous lesion, fracture, dislocation or subluxation. Joint spaces are normal for patient's age. Very small dorsal and plantar calcaneal enthesophytes. Mild age-related dorsal bossing the midfoot. The lateral sesamoid is bipartite, a normal anatomic variant. No visualized effusion. No visualized soft tissue edema. IMPRESSION: Normal x-rays Electronically authenticated by: NAOMIE VELASQUEZ Date: 2021-11-12 21:36 Normal [facility] XR CHEST 2 Von 07-24-2021 SARS-CoV-2 (COVID-19) RNA RENÉ+probe Ql (Unsp spec) EXAMINATION: XR CHEST 2 V HISTORY: Disease of Covid COMPARISON: None. TECHNIQUE: PA and lateral chest x-rays FINDINGS: The lung parenchyma is free of consolidation or infiltrate. No pneumothorax or pleural effusion. The cardiac, mediastinal and hilar contours are normal. Status post ACDF. The visualized osseous structures exhibit no gross abnormality. IMPRESSION: No acute cardiopulmonary abnormality. Electronically authenticated by: NAOMIE VELASQUEZ Date: 2021-07-23 22:04 Normal [facility] Consent for Treatmenton Consent for Treatment [id number] D:127 Normal [facility] Registrationon 03-05-2020 Registration [id number] D:127 Normal [facility] Consenton 02-29-2020 Consent [id number] 0CD:127 Normal [facility] Vital Signs Date Time Vital Sign Value Performing Clinician Viola faith 12-03-2021 15:14-0400 Body height 152.4 cm Lazarus Johnson MD Work Phone: [facility] 12-03-2021 15:14-0400 Heart rate 85 /min Lazarus Johnson MD Work Phone: [facility] 12-03-2021 15:14-0400 SaO2% (BldA) [Mass fraction] 96 % Lazarus Johnson MD Work Phone: [facility] Encounters Encounter Date Encounter Type Care Provider Facility Start: 05-24-2023 End: 05-24-2023 ambulatory WHIT FOWLER Not Available Start: 03-14-2023 End: 03-15-2023 ambulatory [facility] Start: 03-10-2023 End: 03-10-2023 ambulatory [facility] Start: 02-10-2023 End: 02-13-2023 ambulatory WHIT FOWLER [facility] Start: 10-07-2022 End: 10-07-2022 ambulatory [facility] Start: 07-15-2022 End: 07-15-2022 ambulatory NATACHA FOWLER Facility:[facility] Start: 07-08-2022 End: 07-08-2022 ambulatory [facility] Start: 06-16-2022 ambulatory [facility] Start: 06-04-2022 End: 06-04-2022 ambulatory [facility] Start: 05-30-2022 End: 05-30-[address] MEY FARNSWORTH Facility:[facility] Start: 05-19-2022 End: 05-19-2022 ambulatory [facility] Start: 04-30-2022 Evaluation and manag ement of inpatient [facility] Start: 04-29-2022 End: 04-30-2022 Evaluation and management of inpatient [facility] Start: 04-29-2022 End: 05-04-2022 Evaluation and management of inpatient [facility] Start: 04-27-2022 End: 04-27-2022 [facility] Start: 04-21-2022 End: 04-21-2022 ambulatory [facility] Start: 04-21-2022 End: 04-21-2022 Encounter for other preprocedural examination NATACHA FOWLER [facility] Start: 04-21-2022 End: 04-21-2022 ambulatory [facility] Start: 04-20-2022 ambulatory NATACHA FOWLER [facility] ity:H1 Start: 04-16-2022 End: 04-17-2022 ambulatory NATACHA FOWLER Facility:H1 Start: 04-16-2022 End: 04-17-2022 Encounter for other preprocedural examination NATACHA FOWLER Facility:H1 Start: 04-07-2022 End: 04-07-2022 ambulatory [facility] Start: 03-24-2022 End: 03-24-2022 ambulatory [facility] Start: 03-08-2022 End: 03-09-2022 ambulatory NATACHA FOWLER Facility:H1 Start: 02-22-2022 Get Medical Advice Lazarus Johnson MD Work Phone: Pain Management Comment on above: Refill Start: 02-11-2022 ambulatory Lazarus spain MD Work Phone: Pain Management Comment on above: Images Start: 02-03-2022 End: 02-04-2022 ambulatory Lazarus Johnson MD Work Phone: Pain Management Comment on above: Left hip/buttocks pa in Start: 01-31-[address] DOCTOR BLANC Facility :H1 Start: 01-29-2022 ambulatory Lazarus spain MD Work Phone: Pain Management Comment on above: Injections Start: 01-25-2022 ambulatory Lazarus spain MD Work Phone: Pain Management Comment on above: Mobic Start: 01-14-2022 End: 01-14-2022 ambulatory NATACHA FOWLER Facility:H1 Start: 01-13-2022 End: 01-14-2022 ambulatory Lazarus Johnson MD Work Phone: Pain Management Comment on above: MRI and pain managem ent Start: 01-13-2022 End: 01-13-2022 Subsequent hospital visit by physician Mri [facility] (Lg Bore/1.5t) Radiology MRI Comment on above: Radiculopathy of lum bar region [M54.16] Start: 12-29-2021 ambulatory Lazarus spain MD Work Phone: Pain Management Comment on above: Pain Start: 12-22-2021 ambulatory Lazarus spain MD Work Phone: Pain Management Comment on above: Question regarding C -REACTIVE PROTEIN (CRP) Start: 12-21-2021 ambulatory Cash Kang RT(R) Ra diology Comment on above: Radiology MRI Start: 12-21-2021 Patient encounter procedure Cash Kang RT(R) JACQUI AURELIANO Start: 12-11-2021 ambulatory NATACHA FOWLER Facil ity:H1 Start: 12-03-2021 End: 12-03-2021 Subsequent hospital visit by physician Xr [facility] [place] [facility] [place] Radiology Comment on above: Radiculopathy of lum bar region [M54.16] Start: 12-03-2021 End: 12-03-2021 Patient encounter procedure Lazarus Johnson MD Work Phone: Pain Management Comment on above: Degeneration of lumb ar or lumbosacral intervertebral disc (Primary Dx); Radiculopathy of lumbar region; Radicular pain of left lower extremity; Discogenic low back pain; Hyperglycemia; History of fusion of cervical spine Start: 12-02-2021 Telephone encounter Lazarus Johnson MD Work Phone: Pain Management Comment on above: Appointment (pain ma naglambert) Start: 11-19-2021 End: 11-20-2021 ambulatory NATACHA FOWLER Facility:H1 Start: 11-12-2021 End: 11-13-2021 ambulatory NATACHA FOWLER Facility:H1 Start: 07-23-2021 End: 07-24-2021 ambulatory NATACHA FOWLER Facility:H1 Procedures Date Procedure Procedure Detail Performing Clinician Start: 01-13-2022 Mri spinal canal tho racic w/o contrast matrl Lazarus Johnson MD Work Phone: Start: 12-03-2021 Radex spine lumbosac ral 2/3 views Lazarus Johnson MD Work Phone: Plan of Treatment Date Care Activity Detail Author Start: 12-03-2024 DIABETES SCREEN DIABETES SCREEN [facility] Start: 12-03-2024 Diabetes Screening Diabetes Screenin g [facility] Start: 02-25-2023 [facility] Start: 06-27-2022 DEPRESSION ASSESSMENT DEPRESSION ASS ESSMENT [facility] Start: 02-25-2022 Influenza vaccination C [facility] Start: 01-26-2022 End: 03-28-2022 Basic metabolic 2000 panel - Serum or Plasma BASIC METABOLIC PNL Lab Routine Lumbar disc herniation Radiculopathy of lumbar region Expected: 01/26/2022, Expires: 03/28/2022 [facility] Work Phone: Comment on above: Expected: 01/26/2022 , Expires: 03/28/2022 Start: 2020 SHINGRIX VACCINE (1 of 2) SHINGRIX VACCINE (1 of 2) [facility] Start: 2015 COLOGUARD (FIT-DNA) COLOGUARD (FIT-D NA) [facility] Start: 2015 Colonoscopy COLONOSCOPY [facility] Start: 2015 COLORECTAL CANCER SCREENING COLORECTAL CANCER SCREENING [facility] Start: [address] COLONOGRAPHY [facility] Start: 2015 DIABETES SCREEN DIABETES SCREEN [facility] Start: 2015 FECAL OCCULT BLOOD FECAL OCCULT BLOO D [facility] Start: 2015 Lipid 1996 panel - S bunny or Plasma Lipid Screening [facility] Start: 2015 LIPID SCREEN LIPID SCREEN [facility] Start: 2015 SIGMOIDOSCOPY SIGMOIDOSCOPY [facility] Start: 2010 Mammography [facility] Start: 2000 HPV TESTING HPV TESTING [facility] Start: 1991 PAP TESTING PAP TESTING [facility] Start: 1989 Urine microalbumin profile [facility] Start: 1988 HEPATITIS C SCREENING HEPATITIS C SC REENING [facility] Start: 1988 HIV SCREENING HIV SCREENING [facility] Start: 1982 Adult depression screening assessment DEPRESSION SCREENING [facility] Start: 1976 PNEUMOCOCCAL (1 - PCV) PNEUMOCOCCAL (1 - PCV) [facility] Start: 1976 Pneumococcal vaccination Pneum ococcal Vaccine (1 - PCV) [facility] Start: 1975 COVID-19 VACCINE (#1) COVID-19 VACCI NE (#1) [facility] Start: 02-18-1971 COVID-19 VACCINE (#1) COVID-19 VACCI NE (#1) [facility] Start: 1970 HEPATITIS B (1 of 3 - 3-dose series) HEPATITIS B (1 of 3 - 3-dose series) [facility] Start: 1970 Hepatitis B Vaccine (1 of 3 - 3-dose series) Hepatitis B Vaccine (1 of 3 - 3-dose series) [facility] End: 01-02-2023 Mri spinal canal lumbar w/o contrast material MRI LUMBAR SPINE WO IVCON Radiology Routine Radiculopathy of lumbar region 1 Occurrences starting 12/03/2021 until 01/02/2023 [facility] Work Phone: Comment on above: 1 Occurrences starti ng 12/03/2021 until 01/02/2023 End: 01-02-2023 Mri spinal canal thoracic w/o contrast matrl MRI THORACIC SPINE WO IVCON Radiology Routine Radiculopathy of lumbar region 1 Occurrences starting 12/03/2021 until 01/02/2023 [facility] Work Phone: Comment on above: 1 Occurrences starti ng 12/03/2021 until 01/02/2023 [facility] Immunizations Immunization Date Immunization Notes Care Provider Lorena lugo 04-24-2009 influenza virus vacc ine, unspecified formulation Mri Bore/1.5t) [facility] Payers Date Payer Category Payer Unknown [employer] PPO OOS [id number] 2021-Present [phone] [address] [place] [address] PPO [id number] 2021 Unknown [employer] PPO OOS [id number] 2021-Present [phone] [address] [place] [address] PPO [id number] 2021 Unknown [id number] 2020 Medicaid [employer] [id number] 2020-Present [phone] [address] [place] [address] Medicaid [id number] 2020 Medicaid [id number] 1970 Unknown [id number] 1970 Unknown [id number] 1970 Unknown [id number] [id number] 1970 Unknown [id number] 1970 Unknown [id number] [id number] 1970 Unknown [id number] [id number] 1970 Unknown [id number] [id number] 1970 Unknown [id number] [id number] 1970 Unknown [id number] [id number] 1970 Unknown [id number] [id number] 1970 Unknown [id number] [id number] 1970 Unknown [id number] [id number] 1970 Unknown [id number] [id number] 1970 Unknown [id number] [id number] 1970 Unknown [id number] 1959 Self-pay [id number] 1959 Unknown [id number] 1959 Unknown [id number] 1959 Unknown [id number] Social History Date Type Detail Facility Tobacco smoking stat [facility] Tobacco smoking consumption unknown [facility] Start: 1970 Sex Assigned At Female C [facility] Start: 12-03-2021 Tobacco smoking stat [facility] Smokes tobacco daily [facility] Start: 12-03-2021 Tobacco use and exposure User of smo keless tobacco [facility] Start: 12-03-2021 Alcohol intake Lifetime non-d mar (finding) [facility] Start: 12-03-2021 History SDOH Alcohol Frequency 1 [facility] Start: 11-23-2021 End: 12-03-2021 Exposure to SARS-CoV-2 (event) Unable to assess [facility] Start: 12-12-2021 End: 02-02-2022 Exposure to SARS-CoV-2 (event) Not sure [facility] Start: 12-03-2021 History of Social function [facility] Start: 12-03-2021 Tobacco use panel [facility] National Score (1-10 0), lower number is lower risk 60 [facility] Start: 10-30-2021 Gender identity Identifies as female gender (finding) [facility] Clinical Notes 11-19-2021 to 03-10-2023 Telephone Encounter - Lindy Gunderson PA-C - 02/24/2022 2:10 PM EDTTelephone Encounter - Keren Sibley LPN - 02/24/2022 8:01 AM EDTTelephone Encounter - Jane Carpenter Ma - 02/22/2022 9:27 AM EDT Note Date & Type Note Facility 03-10-2023 Note Chief Complaint: nec k pain, radicular pain both arms and headache Follow up after CT cervical spine HPI When did this problem begin: Long time Timing/frequency of occurrence: Constant Pain description: dull ache Pain severity: 7 Radicular pain: both arms more on the left Numbness/tingling: No Weakness: No What improves symptoms: Rest What makes symptoms worse: Activity Gait disturbance: No Fine hand dexterity problem: No Previous surgeries for this problem: C5-7 ACDF, L4-5 fusion ROS Constitutional: Fatigue: No Weight loss: No Fever: No Chills: No Past Surgical History: Procedure Laterality Date ADENOIDECTOMY HERNIA REPAIR UMBILICAL, THEN REDO W MESH HYSTERECTOMY INCONTINENCE SURGERY LAPAROTOMY OVARIAN CYSTECTOMY LUMBAR FUSION 04/29/2022 L4-5 with decompression OTHER SURGICAL HISTORY NECK SURGERY TONSILLECTOMY TUBAL LIGATION Past Medical History: Diagnosis Date Anxiety Back pain Depression GERD (gastroesophageal reflux disease) Hypothyroidism Low back pain Past Surgical History: Procedure Laterality Date ADENOIDECTOMY HERNIA REPAIR UMBILICAL, THEN REDO W MESH HYSTERECTOMY INCONTINENCE SURGERY LAPAROTOMY OVARIAN CYSTECTOMY LUMBAR FUSION 04/29/2022 L4-5 with decompression OTHER SURGICAL HISTORY NECK SURGERY TONSILLECTOMY TUBAL LIGATION Allergies Allergen Reactions Penicillins Swelling Bactoshield Chg [Chlorhexidine Gluconate] Itching Current Outpatient Medications: albuterol 90 mcg/actuation inhaler, Inhale 2 puffs every 6 (six) hours if needed., Disp: , Rfl: wkuaudvucj-bmsklwvswbhmq-dyhw 50-325-40 mg tablet, Take 1 tablet by mouth every 8 (eight) hours if needed for headaches. TAKE 1 TABLET BY MOUTH ONCE EVERY 8 HOURS IF NEEDED FOR HEADACHE, Disp: 90 tablet, Rfl: 0 clotrimazole-betamethasone (Lotrisone) cream, APPLY ONE APPLICATION TO AFFECTED AREA TWICE A DAY TO FOOT FOR 3 WEEKS, Disp: , Rfl: DULoxetine (Cymbalta) [address] capsule, Take 30 mg by mouth at bedtime. Do not crush or chew., Disp: , Rfl: esomeprazole (NexIUM) [address] capsule, Take 40 mg by mouth before breakfast., Disp: , Rfl: fluticasone (Flonase) 50 mcg/actuation nasal spray, Administer 1 spray into each nostril if needed each day., Disp: , Rfl: gabapentin (Neurontin) 600 mg tablet, Take 1 tablet (600 mg) by mouth in the morning, at noon, and at bedtime., Disp: 90 tablet, Rfl: 0 levothyroxine (Synthroid, Levoxyl) 137 mcg tablet, Take 137 mcg by mouth before breakfast., Disp: , Rfl: meloxicam (Mobic) 15 mg tablet, Take 1 tablet by mouth in the morning., Disp: , Rfl: ondansetron ODT (Zofran-ODT) 4 mg disintegrating tablet, Take 1 tablet (4 mg) by mouth every 8 (eight) hours if needed for nausea or vomiting., Disp: 10 tablet, Rfl: 0 sennosides-docusate sodium (Jenny-Colace) 8.6-50 mg tablet, Take 2 tablets by mouth at bedtime., Disp: 20 tablet, Rfl: 0 tiZANidine (Zanaflex) 4 mg tablet, Take 1 tablet (4 mg) by mouth every 8 (eight) hours if needed for muscle spasms., Disp: 90 tablet, Rfl: 0 transparent dressings (Tegaderm) 3 1/2 X 6 bandage, Please change dressing up to 3 times a day, Disp: 15 each, Rfl: 0 Social History Socioeconomic History Marital status: Spouse name: Not on file Number of children: Not on file Years of education: Not on file Highest education level: Not on file Occupational History Not on file Tobacco Use Smoking status: Every Day Packs/day: 0.25 Years: 30.00 Pack years: 7.50 Types: Cigarettes Smokeless tobacco: Never Vaping Use Vaping Use: Never used Substance and Sexual Activity Alcohol use: Never Drug use: Never Sexual activity: Defer Other Topics Concern Not on file Social History Narrative Not on file Social Determinants of Health Financial Resource Strain: Medium Risk (04/07/2022) Overall Financial Resource Strain (CARDIA) Difficulty of Paying Living Expenses: Somewhat hard Food Insecurity: Food Insecurity Present (04/07/2022) Hunger Vital Sign Worried About Running Out of Food in the Last Year: Sometimes true Ran Out of Food in the Last Year: Never true Transportation Needs: No Transportation Needs (04/07/2022) PRAPARE - Transportation Lack of Transportation (Medical): No Lack of Transportation (Non-Medical): No Physical Activity: Inactive (04/07/2022) Exercise Vital Sign Days of Exercise per Week: 0 days Minutes of Exercise per Session: 0 min Stress: Stress Concern Present (04/07/2022) [employer] [place] [employer] - Occupational Stress Questionnaire Feeling of Stress : Rather much Social Connections: Socially Isolated (04/07/2022) Social Connection and Isolation Panel [NHANES] Frequency of Communication with Friends and Family: More than three times a week Frequency of Social Gatherings with Friends and Family: More than three times a week Attends Congregation Services: Never Active Member of Clubs or Organizations: No (more content not included)... [facility] 10-07-2022 Note Chief Complaint: nec k pain, headache HPI When did this problem begin: Long time Timing/frequency of occurrence: Constant Pain description: dull ache Pain severity: 6 Radicular pain: both arms Numbness/tingling: No Pain is getting: gradually worsening Weakness: No What improves symptoms: Rest What makes symptoms worse: Activity Gait disturbance: No Fine hand dexterity problem: No Previous surgeries for this problem: C5-7 ACDF, L4-5 fusion ROS Constitutional: Fatigue: No Weight loss: No Fever: No Chills: No Past Surgical History: Procedure Laterality Date ADENOIDECTOMY HERNIA REPAIR UMBILICAL, THEN REDO W MESH HYSTERECTOMY INCONTINENCE SURGERY LAPAROTOMY OVARIAN CYSTECTOMY LUMBAR FUSION 04/29/2022 L4-5 with decompression OTHER SURGICAL HISTORY NECK SURGERY TONSILLECTOMY TUBAL LIGATION Past Medical History: Diagnosis Date Anxiety Back pain Depression GERD (gastroesophageal reflux disease) Hypothyroidism Low back pain Past Surgical History: Procedure Laterality Date ADENOIDECTOMY HERNIA REPAIR UMBILICAL, THEN REDO W MESH HYSTERECTOMY INCONTINENCE SURGERY LAPAROTOMY OVARIAN CYSTECTOMY LUMBAR FUSION 04/29/2022 L4-5 with decompression OTHER SURGICAL HISTORY NECK SURGERY TONSILLECTOMY TUBAL LIGATION Allergies Allergen Reactions Penicillins Swelling Bactoshield Chg [Chlorhexidine Gluconate] Itching Current Outpatient Medications: albuterol 90 mcg/actuation inhaler, Inhale 2 puffs every 6 (six) hours if needed., Disp: , Rfl: clotrimazole-betamethasone (Lotrisone) cream, APPLY ONE APPLICATION TO AFFECTED AREA TWICE A DAY TO FOOT FOR 3 WEEKS, Disp: , Rfl: DULoxetine (Cymbalta) [address] capsule, Take 30 mg by mouth at bedtime. Do not crush or chew., Disp: , Rfl: esomeprazole (NexIUM) [address] capsule, Take 40 mg by mouth before breakfast., Disp: , Rfl: fluticasone (Flonase) 50 mcg/actuation nasal spray, Administer 1 spray into each nostril if needed each day., Disp: , Rfl: gabapentin (Neurontin) 600 mg tablet, Take 1 tablet (600 mg) by mouth in the morning, at noon, and at bedtime., Disp: 90 tablet, Rfl: 0 levothyroxine (Synthroid, Levoxyl) 137 mcg tablet, Take 137 mcg by mouth before breakfast., Disp: , Rfl: meloxicam (Mobic) 15 mg tablet, Take 1 tablet by mouth in the morning., Disp: , Rfl: ondansetron ODT (Zofran-ODT) 4 mg disintegrating tablet, Take 1 tablet (4 mg) by mouth every 8 (eight) hours if needed for nausea or vomiting., Disp: 10 tablet, Rfl: 0 sennosides-docusate sodium (Jenny-Colace) 8.6-50 mg tablet, Take 2 tablets by mouth at bedtime., Disp: 20 tablet, Rfl: 0 tiZANidine (Zanaflex) 4 mg tablet, Take 1 tablet (4 mg) by mouth every 8 (eight) hours if needed for muscle spasms., Disp: 90 tablet, Rfl: 0 transparent dressings (Tegaderm) 3 1/2 X 6 bandage, Please change dressing up to 3 times a day, Disp: 15 each, Rfl: 0 Social History Socioeconomic History Marital status: Spouse name: Not on file Number of children: Not on file Years of education: Not on file Highest education level: Not on file Occupational History Not on file Tobacco Use Smoking status: Every Day Packs/day: 0.25 Years: 30.00 Pack years: 7.50 Types: Cigarettes Smokeless tobacco: Never Vaping Use Vaping Use: Never used Substance and Sexual Activity Alcohol use: Never Drug use: Never Sexual activity: Defer Other Topics Concern Not on file Social History Narrative Not on file Social Determinants of Health Financial Resource Strain: Medium Risk Difficulty of Paying Living Expenses: Somewhat hard Food Insecurity: Food Insecurity Present Worried About Running Out of Food in the Last Year: Sometimes true Ran Out of Food in the Last Year: Never true Transportation Needs: No Transportation Needs Lack of Transportation (Medical): No Lack of Transportation (Non-Medical): No Physical Activity: Inactive Days of Exercise per Week: 0 days Minutes of Exercise per Session: 0 min Stress: Stress Concern Present Feeling of Stress : Rather much Social Connections: Socially Isolated Frequency of Communication with Friends and Family: More than three times a week Frequency of Social Gatherings with Friends and Family: More than three times a week Attends Congregation Services: Never Active Member of Clubs or Organizations: No Attends Club or Organization Meetings: Never Marital Status: Intimate Partner Violence: Not At Risk Fear of Current or Ex-Partner: No Emotionally Abused: No Physically Abused: No Sexually Abused: No Housing Stability: Low Risk Unable to Pay for Housing in the Last Year: No Number of Places Lived in the Last Year: 1 Unstable Housing in the Last Year: No Family History Family history unknown: Yes Physical Exam There were no vitals taken for this visit. Musculoskeletal Ortho spine musculoskeletal examination: Alignment spine: normal (more content not included)... [facility] 07-08-2022 Note Orthopedic Surgery Subjective 04/29/2022 L4-5 Decompression - Left and Instrumented Lumbar Fusion - Left 07/08/22 Lbp and radicular pain improved 04/29/2022 L4-5 Decompression - Left and Instrumented Lumbar Fusion - Left 4-5 for spondylolisthesis 05/20/22 Lbp and radicular pain improved Patient History Past Surgical History: Procedure Laterality Date ADENOIDECTOMY HERNIA REPAIR UMBILICAL, THEN REDO W MESH HYSTERECTOMY INCONTINENCE SURGERY LAPAROTOMY OVARIAN CYSTECTOMY LUMBAR FUSION 04/29/2022 L4-5 with decompression OTHER SURGICAL HISTORY NECK SURGERY TONSILLECTOMY TUBAL LIGATION Past Medical History: Diagnosis Date Anxiety Back pain Depression GERD (gastroesophageal reflux disease) Hypothyroidism Low back pain Objective Exam: - Incision healed - Limited lumbar spine ROM, no swelling, and no tenderness - Sensation intact - Motor 5/5 all rdedy muscle groups Assessment/Plan Nato Short is a 51 y.o. year old female s/p L4-5 Decompression - Left and Instrumented Lumbar Fusion - Left (04/29/2022) Recommend avoid heavy lifting Going back to work July 30 with restriction Follow up in 3 months [facility] 06-16-2022 Note Orthopedic Surgery L4-5 DECOMPRESSION (L), INSTRUMENTED LUMBAR FUSION (L) Operative Note Date: 04/29/2022 Location: [facility] OR Name: Nato Short, : 1970, Surgeons * Dillan Newby - Primary Mail Messenger: Michael Morales M.D. Preoperative Diagnosis: L 4-5 grade I spondylolisthesis with foramina stenosis and L5 radiculopathy (ICD-10 M43.16, M99.53, M54.16). Postoperative Diagnosis: L 4-5 grade I spondylolisthesis with foramina stenosis and L5 radiculopathy (ICD-10 M43.16, M99.53, M54.16). OPERATION: 1. L 4-5posterior lumbar spine decompression (32226). 2. L 4-5 transforaminal lumbar interbody fusion using autograft, crushed cancellous allograft, [employer]iGen and threaded bone dowel spacer 11 mm and posterolateral fusion using autograft, crushed cancellous allograft and [employer]Gen (13769, 18930). 3. L 4-5 instrumentation using Expedium system from [email or web address] (83256). 4. Local bone autograft harvesting and use of crush cancellous allograft (72330, 56749). 5. Use of intraoperative fluoroscopy (49607). Procedure Summary Anesthesia: General ASA: III Position: Prone position on the Rashid table in reverse Trendelenburg position. Estimated Blood Loss: 250 mL Total IV Fluids: 1000 mL Drains: Hemovac Closed/Suction Drain Right Back 10 Fr. (Active) Urethral Catheter Non-latex (Active) Implants Type Name Action Serial No. [employer] READIGRAFT CANCELLOUS Implanted [id number] [employer] VIVGEN Implanted [id number] [employer] VIVIGEN 10CC Implanted ID: [id number] expedium 7x40 screws Implanted Screw SETSCREW,INNER,SINGLE - [id number] Implanted expedium 45mm rods Implanted T-PLIF SPACER 11MM Implanted [id number] Staff: Oil Expeller: Zoey Tellez RN Scrub Person: Cherise Cardona, CRATE MAKER 06/16/22 Patient presents today for evaulation of her wound as she has been having localized pain and swelling, she has noticed the wound opening up. She has completed a course of Keflex. Patient History Past Surgical History: Procedure Laterality Date ADENOIDECTOMY HERNIA REPAIR UMBILICAL, THEN REDO W MESH HYSTERECTOMY INCONTINENCE SURGERY LAPAROTOMY OVARIAN CYSTECTOMY LUMBAR FUSION 04/29/2022 L4-5 with decompression OTHER SURGICAL HISTORY NECK SURGERY TONSILLECTOMY TUBAL LIGATION Past Medical History: Diagnosis Date Anxiety Back pain Depression GERD (gastroesophageal reflux disease) Hypothyroidism Low back pain Exam: - Incision with superficial dehiscence, no deep tracking noted - Limited lumbar spine post-surgical ROM, no swelling, and no tenderness - Sensation grossly intact - Motor 5/5 all reddy muscle groups Assessment/Plan Nato Short is a 51 y.o. year old female doing very well, happy with outcome results Wet to dry dressing changes discussed F/U 2 wks will contact office with any concerns or signs of infection-erythema, drainage, worsening pain, warmth. JEANNINE Yarbrough [facility] 06-04-2022 Note Attestation signed by Dillan Newby MD at 06/04/2022 5:48 PM I personally saw and examined the patient on the same date of service as resident/fellow Shira Gabriel. I discussed the findings and therapeutic plan with the resident/fellow Shira Gabriel. I agree with the documentation, except for any edits/updates below. Teaching Physician's Revisions: Dillan Newby Orthopedic Surgery Subjective 04/29/2022 L4-5 Decompression - Left and Instrumented Lumbar Fusion - Left 4-5 for spondylolisthesis 06/04/22 Patient presents today for evaulation of her wound as she has been having localized pain and swelling, she has noticed the wound opening up. Patient History Past Surgical History: Procedure Laterality Date ADENOIDECTOMY HERNIA REPAIR UMBILICAL, THEN REDO W MESH HYSTERECTOMY INCONTINENCE SURGERY LAPAROTOMY OVARIAN CYSTECTOMY LUMBAR FUSION 04/29/2022 L4-5 with decompression OTHER SURGICAL HISTORY NECK SURGERY TONSILLECTOMY TUBAL LIGATION Past Medical History: Diagnosis Date Anxiety Back pain Depression GERD (gastroesophageal reflux disease) Hypothyroidism Low back pain Exam: - Incision with superficial dehiscence, no deep tracking noted - Limited lumbar spine post-surgical ROM, no swelling, and no tenderness - Sensation grossly intact - Motor 5/5 all reddy muscle groups Assessment/Plan Nato Short is a 51 y.o. year old female s/p L4-5 Decompression - Left and Instrumented Lumbar Fusion - Left (04/29/2022) doing very well, happy with outcome results Wet to dry dressing changes discussed Follow up in 1 week for repeat eval Refill of keflex given Shira Gabriel MD By using the attestations below, the signing clinician agrees that I have read and verify that the documentation has been personally reviewed by me and ensure that the documentation accurately reflects the encounter. GC: I personally saw this patient on the day of the encounter, performed the reddy portion(s) of the service and participated in the management and confirm the resident's documentation. Please note there may be an additional personal documentation from me. [facility] 05-19-2022 Note Orthopedic Surgery Subjective 04/29/2022 L4-5 Decompression - Left and Instrumented Lumbar Fusion - Left 4-5 for spondylolisthesis 05/20/22 Lbp and radicular pain improved Patient History Past Surgical History: Procedure Laterality Date ADENOIDECTOMY HERNIA REPAIR UMBILICAL, THEN REDO W MESH HYSTERECTOMY INCONTINENCE SURGERY LAPAROTOMY OVARIAN CYSTECTOMY LUMBAR FUSION 04/29/2022 L4-5 with decompression OTHER SURGICAL HISTORY NECK SURGERY TONSILLECTOMY TUBAL LIGATION Past Medical History: Diagnosis Date Anxiety Back pain Depression GERD (gastroesophageal reflux disease) Hypothyroidism Low back pain Exam: - Incision clean, dry, and intact. No drainage or erythema - Limited lumbar spine post-surgical ROM, no swelling, and no tenderness - Sensation grossly intact - Motor 5/5 all reddy muscle groups Assessment/Plan Nato Short is a 51 y.o. year old female s/p L4-5 Decompression - Left and Instrumented Lumbar Fusion - Left (04/29/2022) doing very well, happy with outcome results Recommend avoid heavy lifting Follow up in 6 weeks [facility] 05-04-2022 Note Physical Therapy Physical Therapy Treatment Patient Name: Nato Short : 1970 Today's Date: 05/04/2022 Patient tolerated treatment well and was able to progress to increased distance with ambulation and was able to ascend/descend 2 stairs. Patient was able to state her precautions, denied any other questions/concerns. Patient Active Problem List Diagnosis Spondylolisthesis of lumbar region Intervertebral disc stenosis of neural canal of lumbar region Lumbar radiculopathy S/P lumbar fusion Lumbar foraminal stenosis Pain Pain Assessment Pain Assessment: (Pain not numerically rated this session. Patient appeared to be in pain with ambulation and stairs, specifically in L LE.) Objective General Visit Information: PT Last Visit PT Received On: 05/04/22 General Subjective: RN approved PT treatment on this date. Patient supine in bed upon arrival. Upon completion, patient left supine in bed with call light and tray table within reach. Precautions Precautions Medical Precautions: fall risk, corset prn, no BLT Braces Applied: corset brace Static Sitting Balance Static Sitting Balance Static Sitting-Balance Support: Feet supported Static Sitting-Level of Assistance: Distant supervision Dynamic Sitting Balance Dynamic Sitting Balance Dynamic Sitting-Balance Support: Feet supported Dynamic Sitting Balance-Level of Assistance: Close supervision Static Standing Balance Static Standing Balance Static Standing-Balance Support: Left upper extremity supported, Right upper extremity supported (With use of rolling walker) Static Standing-Level of Assistance: Close supervision Dynamic Standing Balance Dynamic Standing Balance Dynamic Standing-Balance Support: Left upper extremity supported, Right upper extremity supported (With use of rolling walker) Dynamic Standing Balance-Level of Assistance: Close supervision General Assessments: Activity Tolerance Endurance: Stage III Stage III (METs 2.0-3.0) - Sitting to Standin-10 mins Cognition Overall Cognitive Status: Within Functional Limits Treatment: Ambulation Ambulation: Yes Ambulation 1 Surface 1: Level tile Device 1: Rolling walker Assistance 1: Close supervision Quality of Gait 1: Patient ambulated with decreased gait speed, shortened stride length with L LE, and slight forward flexed posture. Ambulated primarily using step to gait pattern, leading with R LE.No loss of balance throughout. Comments/Distance (ft) 1: 60 Stairs Stairs: Yes Stairs Rails 1: Bilateral Device 1: No device (Use of bilateral handrails.) Assistance 1: Close supervision Quality of Stairs 1: Patient appeared to have more difficulty descending stairs. Verbal cues given to have patient descend with L LE. Patient attempted, but returned to descending with R LE. Comment/Number of Steps 1: 2 steps Bed Mobility Bed Mobility: Yes Bed Mobility 1 Bed Mobility From 1: Supine Bed Mobility Type 1: To and from Bed Mobility to 1: Short sit Level of Assistance 1: Close supervision Bed Mobility Comments 1: Patient was able to manage trunk and BLE with HOB elevated, use of handrails. Patient maintained precautions. Transfers Transfer: Yes Transfer 1 Transfer From 1: Sit Transfer Type 1: To and from Transfer to 1: Stand Technique 1: Sit to stand, Stand to sit Transfer Device 1: rolling walker Transfer Level of Assistance 1: Close supervision Trials/Comments 1: 1 Treatment Comments: Patient tolerated treatment well and was able to progress to increased distance with ambulation and was able to ascend/descend 2 stairs. Outcome Assessments 6 Clicks (Mobility) Help from another person turning from your back to your side while in a flat bed without using bedrails: A little Help from another person moving from lying on your back to sitting on the side of a flat bed without using bedrails: A little Help from another person moving to and from a bed to a chair (including a wheelchair): A little Help from another person standing up from a chair using your arms (e.g. wheelchair or bedside chair): A little Help from another person to walk in hospital room: A little Help from another person climbing 3-5 steps with a railing: A little Mobility 6 Clicks T-Score: 18 Assessment/Plan PT Assessment PT Assessment/DISPUTE COORDINATOR Summary: Patient able to progress with ambulation with use of rolling walker and able to complete two stairs with use of bilateral hand rails. Patient able to state her precautions, states she has all the equipment she will need, and states she has no further questions/concerns. Patient is safe to discharge home at this time. Plan Level of assist: 1 assist Treatment/Interventions: Functional transfer training, Endurance training, Bed mobility, Gait training, Balance training PT Plan: Skilled PT PT Frequency: 1 time per day until discharge & PRN PT Disc (more content not included)... [facility] 05-04-2022 Note Insurance denied pt' s placement to a SNF and offered a Peer to Peer. Spoke with pt about this who stated she does not want to wait anymore and wants to discharge home today with her existing C w/ [facility]. Advised PT who wants to work with her on stairs one more time. Also advised by therapy that pt would need a rolling walker and bedside commode. Discussed with pt and she just had a rolling walker covered by insurance in 2019 so it will not be approved (5 year rule) and she will purchase on her own. Will request bedside commode face to face and script from Ortho. [facility] 05-04-2022 Note Occupational Therapy Occupational Therapy Treatment Patient Name: Nato Short : 1970 Today's Date: 05/04/2022 General Subjective: I already got dressed and brushed my teeth today because I'm leaving soon Treatment Duration (min): 10 Minutes Family/Caregiver Present: No Problem List Patient Active Problem List Diagnosis Spondylolisthesis of lumbar region Intervertebral disc stenosis of neural canal of lumbar region Lumbar radiculopathy S/P lumbar fusion Lumbar foraminal stenosis Pain: Pain Assessment Pain Assessment: 0-10 Pain Score: 6 (While walking due to sciatic pain) Pain Location: Back Pain Orientation: Left Pain Radiating Towards: L LE Objective General Visit Information: OT Last Visit OT Received On: 05/04/22 General Subjective: I already got dressed and brushed my teeth today because I'm leaving soon Treatment Duration (min): 10 Minutes Family/Caregiver Present: No Cognition Cognition Overall Cognitive Status: Within Functional Limits Transfers Transfers Transfer: Yes Transfer 1 Transfer From 1: Sit Transfer Type 1: To and from Transfer to 1: Stand Technique 1: Sit to stand Transfer Device 1: rolling walker Transfer Level of Assistance 1: Close supervision Trials/Comments 1: 1 (Pt ambulated throughout room to and from bed) Treatment Comments: Pt sitting EOB at EOS with call light in reach. Treatment Time: 3951-7118 Outcome Assessments AM-PAC 6 Clicks Putting on and taking off regular lower body clothing?: A Little (Min Assist/Contact Guard/Supervision) Bathing(Including washing,rinsing,drying)?: A Little (Min Assist/Contact Guard/Supervision) Toileting, which includes using the toilet,bedpan,or urinal?: A Little (Min Assist/Contact Guard/Supervision) Putting on and taking off regular upper body clothing?: A Little (Min Assist/Contact Guard/Supervision) Taking care of personal grooming such as brushing teeth?: None (Independent) Eating meals?: None (Independent) Total Score OT [facility]: 20 Assessment/Plan OT Assessment OT Impairments: Decreased ADL status, Decreased endurance, Decreased IADLs OT Assessment/JOSEF Summary: Pt progressing towards goals, however would benefit from continued therapy to promote independence in ADL's and functional mobility to return to OF. Prognosis: Good Evaluation/Treatment Tolerance: Patient tolerated treatment well Medical Staff Made Aware: No Strengths: Ability to acquire knowledge, Attitude of self, Capable of completing ADLs semi/independent, Housing layout, Living arrangement secure, Support of extended family/friends, Access to adaptive/assistive products Barriers to Discharge: Premorbid level of function, Comorbidities OT Education/Comments: Pt verbalized good understanding of back precautions and transfer techniques. Discussed home layout, DME, AE, and availability of assistance from family. Donning of corset brace Plan Level of assist: 1 assist Treatment Interventions: ADL retraining, Functional transfer training, Endurance training, Patient/family training, Equipment evaluation/education OT Plan: Skilled OT OT Frequency: 1 time per day until discharge & PRN OT Discharge Recommendations: longterm facility placement OT Goals: Multi-Disciplinary Problems (from Occupational Therapy) Active Problems Problem: OT [facility] Start Date: 04/30/22 Goal Start Date Expected End Date End Date Pt will complete UE dressing and grooming with modified independence using adaptive techniques and AE/DME as needed. 04/30/22 05/14/22 -- Goal Start Date Expected End Date End Date Pt will complete LE dressing, toileting, and bathing with SBA assist using adaptive techniques and AE/DME as needed. 04/30/22 05/14/22 -- Goal Start Date Expected End Date End Date Pt will complete bed mobility, functional mobility, and transfers with SBA using least restrictive device. 04/30/22 05/14/22 -- Goal Start Date Expected End Date End Date Pt will demonstrate 30+ minutes activity tolerance with SBA during functional tasks, using AE/DME as needed. 04/30/22 05/14/22 -- Goal Start Date Expected End Date End Date Pt will demonstrate 15+ minutes dynamic standing balance with SBA during functional tasks, using AE/DME as needed. 04/30/22 05/14/22 -- Problem: Safety Start Date: 04/30/22 Goal Start Date Expected End Date End Date Patient will independently adhere to lumbar spinal precautions during ADL's and transfers 04/30/22 05/14/22 -- [facility] 05-04-2022 Note Attestation signed by Dillan Newby MD at 05/04/2022 10:18 AM I personally saw and examined the patient on the same date of service as resident/fellow Michael Morales. I discussed the findings and therapeutic plan with the resident/fellow Michael Morales. I agree with the documentation, except for any edits/updates below. Teaching Physician's Revisions: Dillan Newby Orthopaedic Surgery Orthopaedic Surgery Progress Note Date: 05/04/2022 SUBJECTIVE: NAEON. Patient reports she is frustrated by the slow progress with SNF precert and says if she does not have approval today she wants to discharge home. OBJECTIVE BP 133/84 Pulse 88 Temp 36.4 ???C (97.6 ???F) (Oral) Resp 17 Ht 1.524 m (5') Wt 110 kg (243 lb 2.7 oz) LMP (LMP Unknown) SpO2 97% BMI 47.49 kg/m??? General: A/O x3, NAD, resting comfortably in bed, cooperative MSK: Back - dressing clean, dry, intact BUE -5/5 strength in deltoid/biceps/triceps/wrist flexion/wrist extension/finger abduction -SILT to C5-T1 distributions -2+ radial pulses BLE - 5/5 strength in TA/GS/EHL/FHL - SILT L2-S1 distributions - 2+ TP and DP pulses, BCR distally ASSESSMENT: Nato Short is a 51 y.o. female s/p L4-5 TLIF and PLF 04/29 PLAN - AAT - no heavy lifting, bending, or twisting - lumbar corset as needed for pain - DVT ppx: EPCs, lovenox while admitted - PT/OT, possible re-eval for safe disposition home - discharge pending SNF approval, medically and orthopaedically ready for discharge Michael Morales MD Orthopaedic Surgery, PGY-5 [facility] 05-03-2022 Note Physical Therapy Physical Therapy Treatment Patient Name: Nato Short : 1970 Today's Date: 05/03/2022 Patient Active Problem List Diagnosis Spondylolisthesis of lumbar region Intervertebral disc stenosis of neural canal of lumbar region Lumbar radiculopathy S/P lumbar fusion Lumbar foraminal stenosis Pain Pain Assessment Pain Assessment: 0-10 Pain Score: 6 Pain Type: Surgical pain, Acute pain Pain Location: Back Pain Radiating Towards: pain radiating into LLE Pain Frequency: Constant/continuous Pain Onset: Ongoing Effect of Pain on Daily Activities: decreased functional mobility Pain Interventions: Repositioned Objective General Visit Information: PT Last Visit PT Received On: 05/03/22 Response to Previous Treatment: Patient with no complaints from previous session. General Family/Caregiver Present: No Subjective: Pt. seen bedside for PT session this a.m. Upon arrival, pt. in bed in right sidelying position and cont. to report back and LLE pain. Pt. is pleasant and agreeable to activities as able. RN nathan session. Precautions Precautions Medical Precautions: fall risk, corset prn, no BLT Static Sitting Balance Static Sitting Balance Static Sitting-Balance Support: Right upper extremity supported, Left upper extremity supported, Feet supported Static Sitting-Level of Assistance: Distant supervision Dynamic Sitting Balance Dynamic Sitting Balance Dynamic Sitting-Balance Support: Right upper extremity supported, Left upper extremity supported, Feet supported Dynamic Sitting Balance-Level of Assistance: Close supervision Static Standing Balance Static Standing Balance Static Standing-Balance Support: Right upper extremity supported, Left upper extremity supported (UEs supported through RW) Static Standing-Level of Assistance: Contact guard Static Standing-Comment/Number of Minutes: pt. stands ~3 mins. while linens are changed Dynamic Standing Balance Dynamic Standing Balance Dynamic Standing-Balance Support: Right upper extremity supported, Left upper extremity supported (UEs supported through RW) Dynamic Standing Balance-Level of Assistance: Contact guard General Assessments: Activity Tolerance Ambulation comments: Pt. only able to minimally increase ambulatory distance this session d/t sig. increase in back and LLE pain. Endurance: Stage II Activity Tolerance Comments: Pt. currently limited d/t pain complaints and LLE weakness. Cognition Overall Cognitive Status: Within Functional Limits Arousal/Alertness: Appropriate responses to stimuli Orientation Level: Oriented X4 Following Commands: Follows multistep commands with increased time Safety Judgment: Good awareness of safety precautions Deficits: Fully aware of deficits Attention Span: Appears intact Memory: Appears intact Treatment: Ambulation Ambulation: Yes Ambulation 1 Surface 1: Level tile Device 1: Rolling walker Assistance 1: Contact guard Quality of Gait 1: Slow, antalgic gait persists. Pt. with improved ability to clear LLE from floor to advance but still requires increased effort. Comments/Distance (ft) 1: ~10' total Stairs Stairs: No Bed Mobility Bed Mobility: Yes Bed Mobility 1 Bed Mobility From 1: Side lying-right Bed Mobility Type 1: To and from Bed Mobility to 1: Short sit Level of Assistance 1: Close supervision Bed Mobility Comments 1: HOB slightly elevated Transfers Transfer: Yes Transfer 1 Transfer From 1: Sit Transfer Type 1: To and from Transfer to 1: Stand Transfer Device 1: rolling walker Transfer Level of Assistance 1: Contact guard Trials/Comments 1: pt. performs 2 sit-stand trials from EOB Outcome Assessments 6 Clicks (Mobility) Help from another person turning from your back to your side while in a flat bed without using bedrails: A little Help from another person moving from lying on your back to sitting on the side of a flat bed without using bedrails: A little Help from another person moving to and from a bed to a chair (including a wheelchair): A little Help from another person standing up from a chair using your arms (e.g. wheelchair or bedside chair): A little Help from another person to walk in hospital room: A lot Help from another person climbing 3-5 steps with a railing: A lot Mobility 6 Clicks T-Score: 16 Assessment/Plan PT Assessment PT Assessment/DISPUTE COORDINATOR Summary: Pt. with only minimal ability to increase ambulatory distance this session. Prognosis: Good Evaluation/Treatment Tolerance: Patient limited by pain Medical Staff Made Aware: Yes PT Education/Comments: Pt. defers sitting in bedside chair and return to bed at end of session. Pt. remains in bed upon this DISPUTE COORDINATOR exiting room with tray table and call light within reach. Plan Level of assist: 1 assist Treatment/Interventions: Functional transfer training, Endurance training, Bed mo (more content not included)... [facility] 05-03-2022 Note Occupational Therapy Occupational Therapy Treatment Patient Name: Nato Short : 1970 Today's Date: 05/03/2022 General Subjective: I dont mind doing some therapy but I cant stay up in a chair Treatment Duration (min): 54 Minutes Family/Caregiver Present: No Problem List Patient Active Problem List Diagnosis Spondylolisthesis of lumbar region Intervertebral disc stenosis of neural canal of lumbar region Lumbar radiculopathy S/P lumbar fusion Lumbar foraminal stenosis Pain: Pain Assessment Pain Assessment: 0-10 Pain Score: 8 Pain Location: Back Pain Orientation: Left Pain Radiating Towards: L LE Objective General Visit Information: OT Last Visit OT Received On: 05/03/22 General Subjective: I dont mind doing some therapy but I cant stay up in a chair Treatment Duration (min): 54 Minutes Family/Caregiver Present: No Cognition Cognition Overall Cognitive Status: Within Functional Limits ADL Assessment: Grooming Grooming Level of Assistance: Setup Grooming Where Assessed: Bed level (Pt asked to brush teeth after getting back to bed) UE Bathing UE Bathing Level of Assistance: Setup UE Bathing Where Assessed: Edge of bed UE Bathing Comments: (For sponge bathing) LE Bathing LE Bathing Level of Assistance: Moderate assistance LE Bathing Where Assessed: (Sitting at EOB and standing for jenny care) LE Bathing Comments: Pt was able to wash tops of legs seated and perineal area when standing with walker but was dependent for perianal care when standing UE Dressing UE Dressing Level of Assistance: Setup UE Dressing Where Assessed: Edge of bed UE Dressing Comments: (To change gowns while sitting EOB) Toileting Toileting Level of Assistance: Minimum assistance Where Assessed: Bedside commode Toileting Comments: (Pt took at few steps with walker to and from BSC. Pt was able to complete perineal hygiene) Toilet Transfers Toilet Transfer From: Bed Toilet Transfer Type: To and from Toilet Transfer to: Standard bedside commode Toilet Transfer Technique: Ambulating (Taking a few steps) Toilet Transfers: Minimal assistance Static Sitting Balance Static Sitting Balance Static Sitting-Balance Support: No upper extremity supported, Feet supported Static Sitting-Level of Assistance: Distant supervision Static Sitting-Comment/Number of Minutes: (While completing sponge bathing activity) Bed Mobility Bed Mobility Bed Mobility: Yes Bed Mobility 1 Bed Mobility From 1: Supine Bed Mobility Type 1: To and from Bed Mobility to 1: Short sit Level of Assistance 1: Close supervision, Minimal verbal cues (Cues for precautions) Transfers Transfers Transfer: Yes Transfer 1 Transfer From 1: Sit Transfer Type 1: To and from Transfer to 1: Stand Technique 1: Sit to stand Transfer Device 1: rolling walker Transfer Level of Assistance 1: Minimum assistance Trials/Comments 1: 2 during ADL's Treatment Comments: Pt returned to bed at EOS Treatment time:9224-4272 Outcome Assessments AM-PAC 6 Clicks Putting on and taking off regular lower body clothing?: A Little (Min Assist/Contact Guard/Supervision) (With use of AE) Bathing(Including washing,rinsing,drying)?: A Lot (Mod/Max Assist) Toileting, which includes using the toilet,bedpan,or urinal?: A Lot (Mod/Max Assist) Putting on and taking off regular upper body clothing?: A Little (Min Assist/Contact Guard/Supervision) Taking care of personal grooming such as brushing teeth?: None (Independent) Eating meals?: None (Independent) Total Score OT [facility]: 18 Assessment/Plan OT Assessment OT Impairments: Decreased ADL status, Decreased endurance, Decreased IADLs OT Assessment/JOSEF Summary: Pt is progressing toward goals but would benefit from continued therapy to increase safety,balance and endurance during mobility tasks and ability to participate in ADL's while maintaining precautions Prognosis: Good Medical Staff Made Aware: Yes OT Education/Comments: Bed mobility, transfer techniques and back precautions Plan Level of assist: 1 assist Treatment Interventions: ADL retraining, Functional transfer training, Endurance training, Patient/family training, Equipment evaluation/education (Pt did not dress lower body however, underwriter educated on use of AE for LB dressing) OT Plan: Skilled OT OT Frequency: 1 time per day until discharge & PRN OT Discharge Recommendations: longterm facility placement OT Goals: Multi-Disciplinary Problems (from Occupational Therapy) Active Problems Problem: OT Misc Start Date: 04/30/22 Goal Start Date Expected End Date End Date Pt will complete UE dressing and grooming with modified independence using adaptive techniques and AE/DME as needed. 04/30/22 05/14/22 -- Goal Start Date Expected End Date End Date Pt will complete LE dressing, toileting, and bathing with SBA assist using adaptive technique (more content not included)... [facility] 05-03-2022 Note Dino Choctawvinicio ramirez. [facility] able to accept and started pre-cert. Updated pt and updated AVS. [facility] 05-03-2022 Note Attestation signed by Dillan Nebwy MD at 05/03/2022 12:34 PM I personally saw and examined the patient on the same date of service as resident/fellow Michael Morales. I discussed the findings and therapeutic plan with the resident/fellow Michael Morales. I agree with the documentation, except for any edits/updates below. Teaching Physician's Revisions: Dillan Newby Orthopaedic Surgery Orthopaedic Surgery Progress Note Date: 05/03/2022 SUBJECTIVE: NAEON. OBJECTIVE BP 120/64 Pulse 81 Temp 36.8 ???C (98.2 ???F) (Oral) Resp 17 Ht 1.524 m (5') Wt 113 kg (249 lb 1.9 oz) LMP (LMP Unknown) SpO2 93% BMI 48.65 kg/m??? General: A/O x3, NAD, resting comfortably in bed, cooperative MSK: Back - dressing clean, dry, intact BUE -5/5 strength in deltoid/biceps/triceps/wrist flexion/wrist extension/finger abduction -SILT to C5-T1 distributions -2+ radial pulses BLE - 5/5 strength in TA/GS/EHL/FHL - SILT L2-S1 distributions - 2+ TP and DP pulses, BCR distally ASSESSMENT: Nato Short is a 51 y.o. female s/p L4-5 TLIF and PLF 04/29 PLAN - AAT - no heavy lifting, bending, or twisting - lumbar corset as needed for pain - DVT ppx: EPCs, lovenox while admitted - discharge pending SNF approval, medically and orthopaedically ready for discharge Michael Morales MD Orthopaedic Surgery, PGY-5 [facility] 05-02-2022 Note [facility]. [facility] 05-02-2022 Note Attestation signed by Dillan Newby MD at 05/02/2022 8:29 AM I personally saw and examined the patient on the same date of service as resident/fellow Milagro Davis. I discussed the findings and therapeutic plan with the resident/fellow Milagro Davis. I agree with the documentation, except for any edits/updates below. Teaching Physician's Revisions: Dillan Newby Orthopaedic Surgery Orthopaedic Surgery Progress Note Date: 05/02/2022 SUBJECTIVE: Headache overnight, alleviated by PO medication. Difficulty ambulating secondary to pain. Tolerating diet and no additional complaints. OBJECTIVE BP 129/63 Pulse 92 Temp 37.1 ???C (98.7 ???F) (Oral) Resp 16 Ht 1.524 m (5') Wt 106 kg (233 lb 0.4 oz) LMP (LMP Unknown) SpO2 92% BMI 45.51 kg/m??? General: A/O x3, NAD, resting comfortably in bed, cooperative MSK: Back - dressing clean, dry, intact BUE -5/5 strength in deltoid/biceps/triceps/wrist flexion/wrist extension/finger abduction -SILT to C5-T1 distributions -2+ radial pulses BLE - 5/5 strength in TA/GS/EHL/FHL - SILT L2-S1 distributions - 2+ TP and DP pulses, BCR distally ASSESSMENT: Nato Short is a 51 y.o. female POD3 s/p L4-5 TLIF and PLF. PLAN - AAT -Pain: Flexeril and Percocet -Zofran as needed for nausea -Ergocalciferol 1.25mg weekly, cholecalciferol 25mcg daily for Vit D deficiency - no heavy lifting, bending, or twisting - lumbar corset as needed for pain - PT/OT recommend dc to SNF, awaiting placement -Will follow up with Dr. Newby outpatient Milagro Davis MD Orthopaedic Surgery, PGY-1 [facility] 05-01-2022 Note Occupational Therapy Occupational Therapy Missed Visit Patient Name: Nato Short : 1970 Today's Date: 05/01/2022 Pt unable to be seen for OT tx this date d/t uncontrolled pain. Will cont to check back as able. Time: 1515 MILAN Briseno [facility] 05-01-2022 Note Received call from Jarrod Shabazz, pt needs SNF placement per therapy recommendations. Met with pt and she is agreeable to a SNF near her home. Will follow with referrals to [facility] and [facility] to check bed availability and in network. [facility] 05-01-2022 Note Physical Therapy Physical Therapy Treatment Patient Name: Nato Short : 1970 Today's Date: 05/01/2022 Patient Active Problem List Diagnosis Spondylolisthesis of lumbar region Intervertebral disc stenosis of neural canal of lumbar region Lumbar radiculopathy S/P lumbar fusion Lumbar foraminal stenosis Pain Pain Assessment Pain Assessment: 0-10 Pain Score: 4 Pain Type: Acute pain, Surgical pain Pain Location: Back Pain Radiating Towards: radiating down LLE Pain Descriptors: Other (Comment) (pt. reports LLE pain as sciatic pain ) Pain Frequency: Constant/continuous Pain Onset: Ongoing Effect of Pain on Daily Activities: decreased functional mobility Pain Interventions: Medication (See MAR), Repositioned Objective General Visit Information: PT Last Visit PT Received On: 05/01/22 Response to Previous Treatment: Patient with no complaints from previous session. General Family/Caregiver Present: No Subjective: Pt. seen bedside for PT session this a.m. Upon arrival, pt. in bed in right sidelying position. Pt. reports just returning to bed from using BSC, but is agreeable to activities with PT as able. Pt. cont. to report back and left sciatic pain. RN nathan session. Precautions Precautions Medical Precautions: drain, fall risk, corset prn, no BLT Static Sitting Balance Static Sitting Balance Static Sitting-Balance Support: Right upper extremity supported, Left upper extremity supported, Feet supported Static Sitting-Level of Assistance: Distant supervision Dynamic Sitting Balance Dynamic Sitting Balance Dynamic Sitting-Balance Support: Right upper extremity supported, Left upper extremity supported, Feet supported Dynamic Sitting Balance-Level of Assistance: Close supervision Static Standing Balance Static Standing Balance Static Standing-Balance Support: Right upper extremity supported, Left upper extremity supported (UEs supported through RW) Static Standing-Level of Assistance: Contact guard Dynamic Standing Balance Dynamic Standing Balance Dynamic Standing-Balance Support: Right upper extremity supported, Left upper extremity supported (UEs supported through RW) Dynamic Standing Balance-Level of Assistance: Contact guard General Assessments: Activity Tolerance Ambulation comments: Pt. only able to tolerate minimal ambulation (~8' total) due to sig. LLE pain. Endurance: Stage II Activity Tolerance Comments: Pt. with limited tolerance of activities d/t sig. LLE pain. Cognition Overall Cognitive Status: Within Functional Limits Arousal/Alertness: Appropriate responses to stimuli Orientation Level: Oriented X4 Following Commands: Follows multistep commands with increased time Safety Judgment: Good awareness of safety precautions Deficits: Fully aware of deficits Attention Span: Appears intact Memory: Appears intact Treatment: Ambulation Ambulation: Yes Ambulation 1 Surface 1: Level tile Device 1: Rolling walker Assistance 1: Contact guard Quality of Gait 1: Sig. slow, antalgic gait. Pt. with sig. difficulty advancing LLE at swing. Is unable to flex at hip and drags left foot in attempts to advance. Comments/Distance (ft) 1: 4' from EOB / 4' back to bed Stairs Stairs: No Bed Mobility Bed Mobility: Yes Bed Mobility 1 Bed Mobility From 1: Side lying-right Bed Mobility Type 1: To and from Bed Mobility to 1: Short sit Level of Assistance 1: Contact guard Bed Mobility Comments 1: HOB slightly elevated. Transfers Transfer: Yes Transfer 1 Transfer From 1: Sit Transfer Type 1: To and from Transfer to 1: Stand Transfer Device 1: rolling walker Transfer Level of Assistance 1: Contact guard Outcome Assessments 6 Clicks (Mobility) Help from another person turning from your back to your side while in a flat bed without using bedrails: A little Help from another person moving from lying on your back to sitting on the side of a flat bed without using bedrails: A little Help from another person moving to and from a bed to a chair (including a wheelchair): A little Help from another person standing up from a chair using your arms (e.g. wheelchair or bedside chair): A little Help from another person to walk in hospital room: A lot Help from another person climbing 3-5 steps with a railing: A lot Mobility 6 Clicks T-Score: 16 Assessment/Plan PT Assessment PT Assessment/DISPUTE COORDINATOR Summary: Pt. only able to minimally progress ambulation this session d/t sig. LLE pain and weakness. Pt. would benefit from cont. skilled PT to address deficits. Evaluation/Treatment Tolerance: Patient limited by pain, Patient limited by fatigue Medical Staff Made Aware: Yes PT Education/Comments: Pt. returns to right sidelying in bed after ambulation trial and remains there upon this DISPUTE COORDINATOR exiting room. Pillows are placed for comfort. Tray table and call light are within reach. (more content not included)... [facility] 05-01-2022 Note Attestation signed by Dillan Newby MD at 05/01/2022 1:16 PM I did not personally examine the patient. I discussed the case with the resident/fellow Milagro Davis. Teaching Physician's Revisions: Dillan Newby Orthopaedic Surgery Orthopaedic Surgery Progress Note Date: 05/01/2022 SUBJECTIVE: NAEON. Pain controlled with medication. Tolerating diet and drain output decreasing. OBJECTIVE BP 114/57 Pulse 95 Temp 36.8 ???C (98.3 ???F) (Oral) Resp 16 Ht 1.524 m (5') Wt 106 kg (233 lb 0.4 oz) LMP (LMP Unknown) SpO2 94% BMI 45.51 kg/m??? General: A/O x3, NAD, resting comfortably in bed, cooperative MSK: Back - dressing clean, dry, intact - drain with output of 50cc over 12 hours BUE -5/5 strength in deltoid/biceps/triceps/wrist flexion/wrist extension/finger abduction -SILT to C5-T1 distributions -2+ radial pulses BLE - 5/5 strength in TA/GS/EHL/FHL - SILT L2-S1 distributions - 2+ TP and DP pulses, BCR distally ASSESSMENT: Nato Short is a 51 y.o. female POD2 s/p L4-5 TLIF and PLF. PLAN - AAT -Pain: Flexeril and Percocet -Zofran as needed for nausea -Ergocalciferol 1.25mg weekly, cholecalciferol 25mcg daily for Vit D deficiency - no heavy lifting, bending, or twisting - lumbar corset as needed for pain - PT/OT recommend dc to SNF - drain removed this AM without complication -Will follow up with Dr. Odin Davis MD Orthopaedic Surgery, PGY-1 [facility] 04-30-2022 Note Physical Therapy Physical Therapy Evaluation Patient Name: Nato Short : 1970 Today's Date: 04/30/2022 PT Discharge Recommendations: Home PT (vs SNF pending progress and ability to navigate stairs) Pt is a 51 year old female s/p L4-5 decompression, instrumented lumbar fusion on 04/29/22 secondary to L4-5 grade I spondylolisthesis with foramina stenosis and L5 radiculopathy. General Family/Caregiver Present: No Subjective: RN and pt agreeable to PT eval this date. Pt up in chair with OT upon arrival and left up in chair upon underwriter's exit with transport on their way to take pt to standing x-ray. Call light and needs in reach. Patient Active Problem List Diagnosis Spondylolisthesis of lumbar region Intervertebral disc stenosis of neural canal of lumbar region Lumbar radiculopathy S/P lumbar fusion Lumbar foraminal stenosis Past Medical History: Diagnosis Date Anxiety Back pain Depression GERD (gastroesophageal reflux disease) Hypothyroidism Low back pain Past Surgical History: Procedure Laterality Date ADENOIDECTOMY HERNIA REPAIR UMBILICAL, THEN REDO W MESH HYSTERECTOMY INCONTINENCE SURGERY LAPAROTOMY OVARIAN CYSTECTOMY OTHER SURGICAL HISTORY NECK SURGERY TONSILLECTOMY TUBAL LIGATION Pain Pain Assessment Pain Assessment: 0-10 Pain Score: 7 Pain Type: Acute pain, Surgical pain Pain Location: Back Pain Orientation: Lower Pain Radiating Towards: radiating toward LLE, sciatic nerve pattern, most pain in L buttock Home Living Home Living Type of Home: Mobile home Lives With: Son (adult son- works midnights) Home Adaptive Equipment: Cane, Lift Chair (pt had RW, though front wheels no longer work correctly, pt needs to RW) Home Living Comments: Pt reports having 4 children nearby and other family/friends that can help her as needed Home Layout: One level Home Access: Stairs to enter with rails Entrance Stairs-Rails: Both Entrance Stairs-Number of Steps: 3 Bathroom Shower/Tub: Tub/shower unit Bathroom Toilet: Standard Bathroom Equipment: Raised toilet seat with rails, Tub transfer bench Prior Level of Function Prior Function Level of [place]: Independent with ADLs and functional transfers, Independent with homemaking with ambulation ADL Assistance: Independent Homemaking Assistance: Independent Prior Function Comments: Pt reports using RW for ambulation around home prior to hospital admit. Independent with all mobility, ADLs and homemaking previously. Pt also receiving [facility] PT for back pain radiating to LLE. Objective Precautions Precautions Medical Precautions: fall risk, IV, log roll, no bending lifting or twisting (lumbar corset for comfort has been ordered per RN) Post-Surgical Precautions: lumbar spine precautions, no BLT, log roll Cognition Cognition Overall Cognitive Status: Within Functional Limits Orientation Level: Oriented X4 General Assessments Activity Tolerance Ambulation comments: Pt ambulates ~2' forward and retro with RW and CGA. Limited by pain and and LLE weakness. Endurance: Stage II Sensation Light Touch: Partial deficits in the LLE Sensation Comments: pt reports numbness and tingling down LLE in sciatic nerve pattern Coordination Movements are Fluid and Coordinated: Yes Postural Control Posture Assessment: forward flexed posture in standing Static Sitting Balance Static Sitting-Balance Support: Right upper extremity supported, Left upper extremity supported, Feet supported Static Sitting-Level of Assistance: Distant supervision Dynamic Sitting Balance Dynamic Sitting-Balance Support: Right upper extremity supported, Left upper extremity supported, Feet supported Dynamic Sitting-Balance: Forward lean Dynamic Sitting Balance-Level of Assistance: Close supervision Dynamic Sitting-Comments: adjusting clothing and scooting back in chair Static Standing Balance Static Standing-Balance Support: Right upper extremity supported, Left upper extremity supported (RW) Static Standing-Level of Assistance: Contact guard Dynamic Standing Balance Dynamic Standing-Balance Support: Right upper extremity supported, Left upper extremity supported (RW) Dynamic Standing Balance-Level of Assistance: Contact guard Functional Assessments Bed Mobility Bed Mobility: No Transfers Transfer: Yes Transfer 1 Transfer From 1: Chair with arms Transfer Type 1: To and from Transfer to 1: Stand Technique 1: Sit to stand, Stand to sit Transfer Device 1: rolling walker Transfer Level of Assistance 1: Contact guard Trials/Comments 1: heavy reliance of UEs on arm rest to push to stand, pt requires increased time and effort to stand fully upright Ambulation Ambulation: Yes Ambulation 1 Surface 1: Level tile Device 1: Rolling walker Assistance 1: Contact guard Quality of Gait 1: slow ava, low step height, R leading gait with step-to pattern (more content not included)... [facility] 04-30-2022 Note Attestation signed by Whit Ambriz OT at 04/30/2022 12:11 PM This note has been reviewed and is co-signed by the supervising therapist. This therapist provided 1:1 supervision during the session and reviewed the therapists documentation. Occupational Therapy Occupational Therapy Evaluation Patient Name: Nato Short : 1970 Today's Date: 04/30/2022 Start Time 0951 Stop Time 1037 Time Calculation (min) 46 min OT Discharge Recommendations: Home OT vs. longterm facility placement based on progress made prior to discharge General Visit Information: General Subjective: Pt presents to [facility] on 04/29/22 for formal preoperative visit due to L3-5 disc degeneration and L4-5 spondylolisthesis. L4-5 decompression and instrumeneted lumbar fusion completed on 04/29/22. Pt found supine in bed upon arrival. Pt pleasant and cooperative throughout session. Pt reports she is in a lot of pain during mobility in LLE. Pt retired to sitting up in recliner with call light within reach, all needs addressed, and nursing aware. Family/Caregiver Present: No Precautions Precautions Medical Precautions: fall risk, IV, log roll, no bending lifting or twisting (Lumbar corset has been ordered) Post-Surgical Precautions: Lumar spine precautions, log roll Patient Active Problem List Diagnosis Spondylolisthesis of lumbar region Intervertebral disc stenosis of neural canal of lumbar region Lumbar radiculopathy S/P lumbar fusion Lumbar foraminal stenosis Past Medical History: Diagnosis Date Anxiety Back pain Depression GERD (gastroesophageal reflux disease) Hypothyroidism Low back pain Past Surgical History: Procedure Laterality Date ADENOIDECTOMY HERNIA REPAIR UMBILICAL, THEN REDO W MESH HYSTERECTOMY INCONTINENCE SURGERY LAPAROTOMY OVARIAN CYSTECTOMY OTHER SURGICAL HISTORY NECK SURGERY TONSILLECTOMY TUBAL LIGATION Pain Pain Assessment Pain Assessment: 0-10 Pain Score: 5 - Moderate pain Pain Type: Surgical pain, Neuropathic pain Pain Location: Back Pain Orientation: Lower Pain Radiating Towards: Lower back pain radiating down LLE. Pt reports shooting pain and sciatica. Pain Descriptors: Shooting Pain Interventions: (Pursed lip breathing and sitting up in recliner with pillow underneath bottom) Response to Interventions: improved Home Living Home Living Type of Home: Mobile home Lives With: Son (25 yr old son who works midnight shift) Home Adaptive Equipment: Cane, Walker rolling, Lift Chair (Pt reports her RW front wheels get stuck and that she needs a replacement) Home Living Comments: Pt reports family lives nearby if she needs help with anything hwne her son is at work Home Layout: One level Home Access: Stairs to enter with rails Entrance Stairs-Rails: Both Entrance Stairs-Number of Steps: 3 Bathroom Shower/Tub: Tub/shower unit Bathroom Toilet: Standard Bathroom Equipment: Raised toilet seat with rails, Tub transfer bench (safety frame) Prior Level of Function Prior Function ADL Assistance: Independent Homemaking Assistance: Independent Driving: (Pt reports she has not been driving since January 2022) Shopping: (Pt reports she completes online grocery shopping and has the groceries delivered to her home. 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, but that she has not worked there since January 2022 due to increased pain in her low back and LLE.) Static Sitting Balance Static Sitting Balance Static Sitting-Balance Support: Right upper extremity supported, Left upper extremity supported, Feet unsupported Static Sitting-Level of Assistance: Close supervision Static Sitting-Comment/Number of Minutes: 5 min Dynamic Sitting Balance Dynamic Sitting Balance Dynamic Sitting-Balance Support: Right upper extremity supported, Left upper extremity supported, Feet supported Dynamic Sitting-Balance: Forward lean Dynamic Sitting Balance-Level of Assistance: Close supervision Dynamic Sitting-Comments: 2 min; pt assisted with donning socks to prepare for transfer Static Standing Balance Static Standing Balance Static Standing-Balance Support: Right upper extremity supported, Left upper extremity supported (RW) Static Standing-Level of Assistance: Moderate assistance Static Standing-Comment/Number of Minutes: 2 min Dynamic Standing Balance Dynamic Standing Balance Dynamic Standing-Balance Support: Right upper extremity supported, Left upper extremity supported (RW) Dynamic Standing Balance-Level of Assistance: Moderate assistance Dynamic Standing-Comments: 2 min; completed transfer from bed to chair Bed Mobility Bed Mobility B (more content not included)... [facility] 04-30-2022 Note Clarified with pt th at she was active with [facility] until a few weeks ago. Advised pt that MD typically wants her to hold off on home therapy until he sees her at next follow up. Sent return referral and updated AVS. [facility] 04-30-2022 Note Attestation signed by Dillan Newby MD at 04/30/2022 10:33 AM I personally saw and examined the patient on the same date of service as resident/fellow Michael morales. I discussed the findings and therapeutic plan with the resident/fellow Michael morales. I agree with the documentation, except for any edits/updates below. Teaching Physician's Revisions: Dillan Newby Orthopaedic Surgery Orthopaedic Surgery Progress Note Date: 04/30/2022 SUBJECTIVE: NAEON. Pain controlled with medication. OBJECTIVE BP 118/55 Pulse 94 Temp 37 ???C (98.6 ???F) Resp 16 Ht 1.524 m (5') Wt 106 kg (233 lb 0.4 oz) LMP (LMP Unknown) SpO2 96% BMI 45.51 kg/m??? General: A/O x3, NAD, resting comfortably in bed, cooperative MSK: Back - dressing clean, dry, intact - drain with 110 mL output over the past 12 hours, kept in place BLE - 5/5 strength in reddy muscle groups - SILT L2-S1 distributions - BCR distally ASSESSMENT: Nato Short is a 51 y.o. female s/p L4-5 TLIF and PLF 04/29 PLAN - AAT - no heavy lifting, bending, or twisting - lumbar corset as needed for pain - PT/OT - drain left in place until output slows - upright XR today - 24h post op abx - plan for possible discharge tomorrow Michael Morales MD Orthopaedic Surgery, PGY-5 [facility] 04-29-2022 Note Assessment completed at bedside with pt. Pt lives at home with her son (whom works midnights), in a trailer, with three steps to get inside. Pt owns a cane, RW, and shower chair. Pt reported being active with [facility], hx of OP PT at [facility], and denied hx of SNF or IPR. Pt plans to DC home and continue with [facility], will be transported by son, and has no current needs at this time. [facility] 04-29-2022 Note Patient: Nato Short Procedure Summary Date: 04/29/22 Room / Location: [facility] OPERATING ROOM 12 / [facility] Operating Room Anesthesia Start: 806 Anesthesia Stop: 1121 Procedures: L4-5 DECOMPRESSION (Left: Spine Lumbar) INSTRUMENTED LUMBAR FUSION (Left: Spine Lumbar) Diagnosis: Spondylolisthesis of lumbar region Intervertebral disc stenosis of neural canal of lumbar region Lumbar radiculopathy (Spondylolisthesis of lumbar region [M43.16]) (Intervertebral disc stenosis of neural canal of lumbar region [M99.53]) (Lumbar radiculopathy [M54.16]) Surgeons: Dillan Newby MD Responsible Provider: Capo Harris MD Anesthesia Type: general ASA Status: 3 Anesthesia Type: general Vitals Value Taken Time BP 119/60 04/29/22 1203 Temp 36.3 ???C (97.3 ???F) 04/29/22 1121 Pulse 96 04/29/22 1207 Resp 21 04/29/22 1207 SpO2 96 % 04/29/22 1207 Vitals shown include unvalidated device data. Anesthesia Post Evaluation Patient location during evaluation: PACU Patient participation: complete - patient participated Level of consciousness: awake and alert Pain management: adequate Multimodal analgesia pain management approach Airway patency: patent Cardiovascular status: acceptable Respiratory status: acceptable Hydration status: acceptable There were no known notable events for this encounter. Stable for transfer to floor. Liz Fernandez MD Outpatient Scheduler PGY-2 04/29/2022 12:08 PM [facility] 04-29-2022 Note Airway Date/Time: 04/29/2022 8:18 AM Urgency: elective Airway not difficult General Information and Staff Patient location during procedure: OR Anesthesiologist: Capo Harris MD Resident/END MAKER/CAA: ALONDRA Zuniga Performed: resident/END MAKER/CAA Indications and Patient Condition Indications for airway management: anesthesia Spontaneous Ventilation: absent Sedation level: deep Preoxygenated: yes Mask difficulty assessment: 1 - vent by mask Final Airway Details Final airway type: endotracheal airway Successful airway: ETT Cuffed: yes Successful intubation technique: video laryngoscopy Facilitating devices/methods: intubating stylet and anterior pressure/BURP Endotracheal tube insertion site: oral Blade: Abbott Blade size: #3 ETT size (mm): 7.0 Cormack-Lehane Classification: grade I - full view of glottis Placement verified by: chest auscultation Measured from: lips ETT to lips (cm): 22 Number of attempts at approach: 2 Ventilation between attempts: none Additional Comments Eyes taped after induction, before airway management [facility] 04-29-2022 Note Patient: Nato Short Procedure Information Date/Time: 04/29/22 0800 Procedures: Left L5-S1 decompression (Left: Spine Lumbar) INSTRUMENTED LUMBAR FUSION (Left: Spine Lumbar) - C-arm, Rashid Table, [employer], SSEP#[id number], reps notified. Location: [facility] OPERATING ROOM 12 / [facility] Operating Room Surgeons: Dillan Newby MD Relevant Problems Anesthesia (within normal limits) Cardio (within normal limits) Endo hypothyroid on meds GI GERD well controlled on meds /Renal (within normal limits) Neuro/Psych pt on cymbalta for anxiety; pain left buttock down left leg Pulmonary current smoker, smoked today Clinical information reviewed: Tobacco Allergies Meds Med Hx Surg Hx OB Status Fam Hx Soc Hx Physical Exam Airway Mallampati: II TM distance: >3 FB Neck ROM: full Cardiovascular Rhythm: regular Rate: normal Dental - normal exam Pulmonary - normal exam Abdominal (+) obese Anesthesia Plan ASA 3 general (Discussed GA/OETT/possible additional IV access/prone positioning discussed. Pt agrees to proceed.) The patient is a current smoker. Patient smoked on day of procedure. Obstructive sleep apnea risk education given perioperatively: tested negative. intravenous induction Postoperative administration of opioids is intended. Trial extubation is planned. Anesthetic plan and risks discussed with patient. Use of blood products discussed with patient who consented to blood products. Plan discussed with CAA. Additional Equipment Requests [facility] 04-21-2022 Note Attestation signed by Dillan Newby MD at 04/21/2022 8:25 PM I personally saw and examined the patient on the same date of service as resident/fellow Michael Morales. I discussed the findings and therapeutic plan with the resident/fellow Michael Morales. I agree with the documentation, except for any edits/updates below. Teaching Physician's Revisions: Dillan Newby Chief Complaint: LBP HPI Patient presents for formal preoperative visit. Denies any interval changes in symptoms since last visit. When did this problem begin: Long time Timing/frequency of occurrence: Constant Pain description: dull ache Pain severity: 7 Radicular pain: left leg Numbness/tingling: No Pain is getting: gradually worsening Weakness: No What improves symptoms: Rest What makes symptoms worse: Activity Gait disturbance: No Fine hand dexterity problem: No Previous surgeries for this problem: No ROS Constitutional: Fatigue: No Weight loss: No Fever: No Chills: No Musculoskeletal: Neck Stiffness: No Neck Pain: No Back Stiffness: No Back Pain: No Neurologic: Headache:{No Weakness: No Numbness: No Paresthesia: No Tremor: No Physical Exam Musculoskeletal Ortho spine musculoskeletal examination: Alignment spine: normal Tenderness: lumbar paraspinal Range of motion Cervical spine: normal Range of motion lumbar spine: limited Neurological Biceps strength: 5 Wrist extension: 5 Triceps strength: 5 Finger flexor: 5 Finger abduction strength: 5 Flexion at the hip strength: 5 Quadriceps strength: 5 Tibialis anterior strength: 5 Plantar flexion strength: 5 Extensor Hallicis Longus strength: 5 Sensory Exam: intact Straight leg raising: Negative Positive degrees DTR/ Pathologic reflexes Biceps reflex- 2 Brachioradialis reflex- 2 Triceps reflex- 2 Patellar reflex- 2 Achilles reflex- 2 Babinski- negative Gaxiola reflex: Absent Gait and station Gait: Normal Tandem gait: Able Images: X ray L3-L5 disc degeneration disc present. X-rays also reveal spondylolisthesis present from L4-L5 Outside MRI L-spine from [facility] performed 01/13/2022 was reviewed today and shows significant disc protrusion at the level of L4-L5 causing significant lumbar stenosis. CT L-spine demonstrates L4-5 anterolithesis. Counting from last rib, pathology is present at L4-5. Assessment and Plan 51 years presents with LBP and radicular pain left lower extremity Explained the clinical and radiological findings with the patient and discussed management options. Recommended: Due to severity of the patient symptoms affecting daily activities and quality of life and failure of conservative management to give sustained relief, patient is keen on surgical management. Spinal fusion is indicated due to after decompression of the foramen. The spine will become unstable therefore a fusion will be necessary. Preoperative diagnosis: L4-5 spondylolisthesis, L3-L5 disc degeneration, L3-L5 spinal stenosis, foramina stenosis, and left lower extremity radiculopathy Planned procedure: L4-L5 decompression and fusion XR, MRI, and CT were personally reviewed to confirm appropriate surgical level. Spondylolisthesis present at L4-5 level and this is the level that will be decompressed and fused. Discussed proposed procedure with patient/family. All questions answered in full. Obtained informed consent. History and physical examination completed. Surgical Risk Reviewed with the patient: Lumbar Spine Surgery: The patient was counseled on thoracic/lumbar spine surgical risks including but not limited to intra-operative complication from anesthesia, including , dural tear, temporary or permanent paralysis, malposition of hardware that may require revision, and injury of intra-abdominal/intra-thoracic organs that may require exploration and repair. Post-operative complications including but not limited to blindness, infection, blood clot in legs and/or lungs, incomplete relief of pain, pseudoarthrosis, and requirement of further surgery at the same or adjacent level. Michael Morales MD Orthopaedic Surgery, PGY-5 By using the attestations below, the signing clinician agrees that I have read and verify that the documentation has been personally reviewed by me and ensure that the documentation accurately reflects the encounter. GC: I personally saw this patient on the day of the encounter, performed the reddy portion(s) of the service and participated in the management and confirm the resident's documentation. Please note there may be an additional personal documentation from me. [facility] 04-16-2022 Note EXAMINATION: XR CHES T 2 V HISTORY: Pre-surgery evaluation COMPARISON: 02/02/2022 TECHNIQUE: PA and lateral FINDINGS: LUNGS: No significant pulmonary parenchymal abnormalities. VASCULATURE: No increased pulmonary vasculature. PLEURA: No pneumothorax, effusion, or pleural thickening. CARDIAC: No cardiomegaly or cardiac silhouette abnormality. MEDIASTINUM: No visible mass or adenopathy. BONES: No fracture or visible bone lesion. Cervical fusion hardware OTHER: Negative. IMPRESSION: No acute disease. Electronically authenticated by: NAOMIE THEODORE Date: 2022-04-16 09:47 [facility] 04-07-2022 Note Chief Complaint: LBP HPI When did this problem begin: Long time Timing/frequency of occurrence: Constant Pain description: dull ache Pain severity: 7 Radicular pain: left leg Numbness/tingling: No Pain is getting: gradually worsening Weakness: No What improves symptoms: Rest What makes symptoms worse: Activity Gait disturbance: No Fine hand dexterity problem: No Previous surgeries for this problem: No ROS Constitutional: Fatigue: No Weight loss: No Fever: No Chills: No Musculoskeletal: Neck Stiffness: No Neck Pain: No Back Stiffness: No Back Pain: No Neurologic: Headache:{No Weakness: No Numbness: No Paresthesia: No Tremor: No Physical Exam Musculoskeletal Ortho spine musculoskeletal examination: Alignment spine: normal Tenderness: lumbar paraspinal Range of motion Cervical spine: normal Range of motion lumbar spine: limited Neurological Biceps strength: 5 Wrist extension: 5 Triceps strength: 5 Finger flexor: 5 Finger abduction strength: 5 Flexion at the hip strength: 5 Quadriceps strength: 5 Tibialis anterior strength: 5 Plantar flexion strength: 5 Extensor Hallicis Longus strength: 5 Sensory Exam: intact Straight leg raising: Negative Positive degrees DTR/ Pathologic reflexes Biceps reflex- 2 Brachioradialis reflex- 2 Triceps reflex- 2 Patellar reflex- 2 Achilles reflex- 2 Babinski- negative Gaxiola reflex: Absent Gait and station Gait: Normal Tandem gait: Able Images: X ray L4-s1 disc degeneration disc present. X-rays also reveal spondylolisthesis present from L5-S1 Outside MRI L-spine from [facility] performed 01/13/2022 was reviewed today and shows significant disc protrusion at the level of L5-S1 causing significant lumbar stenosis. Additionally, patient shows lumbarization of S1-S2 with an S1-S2 disc present Assessment and Plan 51 years presents with LBP and radicular pain left lower extremity Explained the clinical and radiological findings with the patient and discussed management options. Recommended: Due to severity of the patient symptoms affecting daily activities and quality of life and failure of conservative management to give sustained relief, patient is keen on surgical management. Spinal fusion is indicated due to after decompression of the foramen. The spine will become unstable therefore a fusion will be necessary. Preoperative diagnosis: L5-S1 spondylolisthesis, L4-S1 disc degeneration, L4-S1 spinal stenosis, foramina stenosis, and left lower extremity radiculopathy Planned procedure: L5-S1 decompression and fusion, with possible extension to L4 given the spondylolisthesis present Discussed proposed procedure with patient/family. All questions answered in full. Obtained informed consent. History and physical examination completed. Surgical Risk Reviewed with the patient: Lumbar Spine Surgery: The patient was counseled on thoracic/lumbar spine surgical risks including but not limited to intra-operative complication from anesthesia, including , dural tear, temporary or permanent paralysis, malposition of hardware that may require revision, and injury of intra-abdominal/intra-thoracic organs that may require exploration and repair. Post-operative complications including but not limited to blindness, infection, blood clot in legs and/or lungs, incomplete relief of pain, pseudoarthrosis, and requirement of further surgery at the same or adjacent level. We have asked that patient obtain her recent L spine CT done at [facility] so we may review it prior to surgery. We did explain that this preop L spine CT was necessitated in order to fully characterize her lesions and perform appropriate preop planning Patient is a current smoker. We advised her that she must significantly decrease her smoking or quit altogether in order to maximize the success of her surgery. She is currently on [facility] Follow up for formal preoperative visit prior to the surgical date. Furthermore, we have advised patient that she must see her PCP for formal preoperative clearance for the surgery PREOPERATIVE DIAGNOSES: L5-S1 grade I spondylolisthesis with foraminal stenosis and L5 radiculopathy (ICD-10 M43.16, M99.53, M54.16). SURGICAL PROCEDURE: 1. L5-S1 posterior lumbar spine decompression (29877). 2. L5-S1 transforaminal lumbar interbody fusion using autograft, crushed cancellous allograft, and threaded bone dowel spacer and posterolateral fusion using autograft, crushed cancellous allograft (02861, 70626). 3. L5-S1 instrumentation using USS system from [employer] (75432). 4. Local bone autograft harvesting and use of crush cancellous allograft (22034, 46536). 5. Use of intraoperative fluoroscopy (81193). James Iyer MD Orthopedic Surgery, PGY-3 [facility] Pager: [phone] 04/07/22 1:23 PM By using the attestations below, the signing clinician ghanshyam (more content not included)... [facility] 03-24-2022 Note Chief Complaint: LBP HPI When did this problem begin: Long time Timing/frequency of occurrence: Constant Pain description: dull ache Pain severity: 7 Radicular pain: left leg Numbness/tingling: No Pain is getting: gradually worsening Weakness: No What improves symptoms: Rest What makes symptoms worse: Activity Gait disturbance: No Fine hand dexterity problem: No Previous surgeries for this problem: No ROS Constitutional: Fatigue: No Weight loss: No Fever: Npo Chills: No Musculoskeletal: Neck Stiffness: No Neck Pain: No Back Stiffness: {No Back Pain: No Neurologic: Headache:{No Weakness: No Numbness: No Paresthesia: No Tremor: No Physical Exam Musculoskeletal Ortho spine musculoskeletal examination: Alignment spine: normal Tenderness: lumbar paraspinal Range of motion Cervical spine: normal Range of motion lumbar spine: limited Neurological Biceps strength: 5 Wrist extension: 5 Triceps strength: 5 Finger flexor: 5 Finger abduction strength: 5 Flexion at the hip strength: 5 Quadriceps strength: 5 Tibialis anterior strength: 5 Plantar flexion strength: 5 Extensor Hallicis Longus strength: 5 Sensory Exam: intact Straight leg raising: Negative Positive degrees DTR/ Pathologic reflexes Biceps reflex- 2 Brachioradialis reflex- 2 Triceps reflex- 2 Patellar reflex- 2 Achilles reflex- 2 Babinski- negative Gaxiola reflex: Absent Gait and station Gait: Normal Tandem gait: Able Images: X ray L4-s1 disc degeneration Assessment and Plan 51 years presents with LBP and radicular pain left lower extremity Explained the clinical and radiological findings with the patient and discussed management options. Recommended MRI lumbar spine to asses spinal stenosis. Patient had 3 months old MRI unable to review Increase gabapentin to 600 TID Follow up after the MRI [facility] 02-24-2022 Miscellaneous Notes Initial Office Visit - 12/03/[address] Lazarus Johnson PLAN: Discussed the above findings and potential options with the patient. Hx of chronic axial LB (90%) with some radition of pain in LE's (10%). Pain is somewhat neuropathic. Suggest: - XR - shows facet OA severe and L 4 on L 5 anterior listhesis - MRI thoracic and lumbar - bloodwork - hgba1c, WSr, CRp (all WNL) - after the above are reviewed (she will My Chart Message us) = psych evaluation prior to considering SCS trial Nato Short was previously advised she needed to have labs completed before refills would be approved. There are no results from the BMP ordered on 01/26/22. Lindy Gunderson PA-C February 24, 2022 Patient phones requesting refills as follows: Requested Prescriptions Pending Prescriptions Disp Refills meloxicam (MOBIC) 15 mg tablet Sig: Take 1 tablet by mouth once daily. Please review and advise. Keren Sibley LPN Dr. Johnson patient Patient's request for medication is as follows: Requested Prescriptions Pending Prescriptions Disp Refills meloxicam (MOBIC) 15 mg tablet Sig: Take 1 tablet by mouth once daily. Prescription(s) as above. Please process accordingly. Jane Carpenter Ma documented in this encounter [facility] 02-12-2022 Miscellaneous Notes XR and MRI results were sent to patient's mailing address. documented in this encounter [facility] 02-02-2022 Miscellaneous Notes Called patient, verified name and , and notified of message below from Yasmeen Azul CNP Patient states my pain is in my left side of my low back in my left butt and moves to hip and down the front, back and side of my left leg to my ankle. I said the right leg in my Mychart message by mistake. It always aches but then I get sharp shooting pains down my leg. The pain is terrible. The ice and heat don't really help. The Gabapentin was helping until 2 nights ago but now it's not helping. No injury. Reviewed with patient the following red flag symptoms: fever or chills, weight loss, changes in bowel or bladder control (difficulty holding your urine or stool), saddle anesthesia (numbness or tingling in your groin), progressive numbness or weakness. Patient instructed that if these symptoms should arise they should seek emergency treatment. Patient states I've woke up the last 2 night having wet myself because I didn't know that I had to pee. I do have some tingling in my left groin and weakness in both legs, the left is the worse leg. Advised patient that she has multiple red flag symptoms and that we would recommend that she be evaluated in the ED emergently as those symptoms could indicate pressure on her spinal cord. She should have someone drive her and to please call us tomorrow with an update on how she's doing. Patient verbalized understanding of instructions given. Patient states I will have my daughter take me to [facility] ER and call you tomorrow with an update. Can we call patient and get current description of her pain. The purpose of trial of LESI is to see if this would improve her current pain symptoms Yasmeen Azul APRN.NATACHA documented in this encounter [facility] 02-02-2022 Miscellaneous Notes Called patient, left a voice mail that if her pain is so severe that she is unable to walk or she has any of the following red flag symptoms: fever or chills, weight loss, changes in bowel or bladder control (difficulty holding your urine or stool), saddle anesthesia (numbness or tingling in your groin), progressive numbness or weakness in legs, she should seek emergency treatment right away in the ED. documented in this encounter [facility] 01-27-2022 Miscellaneous Notes Order was faxed and received confirmation. For patient to continue Mobic recommend check BMP prior to refilling it Yasmeen Azul APRN.CENTRAL PROCESSING TECH documented in this encounter [facility] 01-14-2022 Miscellaneous Notes Please schedule a Left L4-5 transforaminal Epidural steroid injection with Dr. Lazarus Johnson and consult spine surgery. The following approved medication requests have been transmitted electronically. Signed Prescriptions Disp Refills gabapentin (NEURONTIN) 300 mg capsule 90 capsule 1 Sig: Take one capsule at bedtime for 5 days. Then take one capsule twice a day for 5 days. Then take one capsule three times a day. Lindy Gunderson PA-C January 14, 2022 documented in this encounter [facility] 01-13-2022 Note HNO ID: [id number] Author: ASIF Magana Service: Radiology Author Type: Bicycle Fitter Type: Progress Notes Filed: 01/13/2022 2:51 PM Note Text: Radiology Service Progress Note PATIENT NAME: Nato Short DATE OF SERVICE: January 13, 2022 TIME: 2:50 PM PATIENT IDENTITY VERIFICATION COMPLETED USING TWO (2) IDENTIFIERS: Name and Date of confirmed by patient verbally. FALL SCREENING: Has the patient had 2 falls in the last year or 1 fall with injury or currently using an Ambulatory Assistive Device (Walker, Cane, Wheelchair, Crutches, etc.)? No PATIENT GENDER DATA: Female. status: : No status: NO. PATIENT RELEVANT IMPLANT DATA REVIEWED: Yes RADIOLOGY DEPARTMENT: MR; Exam(s) Completed: Spine: Thoracic spine and Lumbar spine PERIPHERAL IV DATA: Not applicable SIGNED BY: ASIF Magana January 13, 2022 2:50 PM [facility] 01-13-2022 History of Present illness Narrative Radiology Service Progress Note PATIENT NAME: Nato Short DATE OF SERVICE: January 13, 2022 TIME: 2:50 PM PATIENT IDENTITY VERIFICATION COMPLETED USING TWO (2) IDENTIFIERS: Name and Date of confirmed by patient verbally. FALL SCREENING: Has the patient had 2 falls in the last year or 1 fall with injury or currently using an Ambulatory Assistive Device (Walker, Cane, Wheelchair, Crutches, etc.)? No PATIENT GENDER DATA: Female. status: : No status: NO. PATIENT RELEVANT IMPLANT DATA REVIEWED: Yes RADIOLOGY DEPARTMENT: MR; Exam(s) Completed: Spine: Thoracic spine and Lumbar spine PERIPHERAL IV DATA: Not applicable SIGNED BY: Salbador Palacios preventive maintenance engineer January 13, 2022 2:50 PM documented in this encounter [facility] 12-29-2021 Miscellaneous Notes PLAN: initial OV 12/03/21 Suggest: - XR - shows facet OA severe and L 4 on L 5 anterior listhesis - MRI thoracic and lumbar - bloodwork - hgba1c, WSr, CRp (all WNL) - after the above are reviewed (she will My Chart Message us) = psych evaluation prior to considering SCS trial Lazarus Johnson MD documented in this encounter [facility] 12-21-2021 Note HNO ID: [id number] Author: RT Adele(Nicky) Service: ? Author Type: Technologist Type: Progress Notes Filed: 12/21/2021 1:21 PM Note Text: RADIOLOGY SERVICE PROGRESS NOTE DATE OF SERVICE: December 21, 2021 TIME OF SERVICE: 1:20 pm EVENT: EXAM/PROCEDURE NOT COMPLETED - Patient became claustrophobic, reaction was: Moderate. ADDITIONAL EVENT DETAILS: no images acquired for mri t,l-spine SIGNATURE: RT Adele(R) PATIENT NAME: Nato Short DATE: December 21, 2021 TIME: 1:20 PM PAGER/CONTACT #: [facility] 12-21-2021 History of Present illness Narrative RADIOLOGY SERVICE PROGRESS NOTE DATE OF SERVICE: December 21, 2021 TIME OF SERVICE: 1:20 pm EVENT: EXAM/PROCEDURE NOT COMPLETED - Patient became claustrophobic, reaction was: Moderate. ADDITIONAL EVENT DETAILS: no images acquired for mri t,l-spine SIGNATURE: RT Adele(R) PATIENT NAME: Nato Short DATE: December 21, 2021 TIME: 1:20 PM PAGER/CONTACT #: documented in this encounter [facility] 12-03-2021 Note HNO ID: [id number] Author: RT Elda(Nicky) Service: ? Author Type: Technologist Type: Progress Notes Filed: 12/03/2021 4:38 PM Note Text: Radiology Service Progress Note PATIENT NAME: Nato Short DATE OF SERVICE: December 03, 2021 TIME: 4:38 PM PATIENT IDENTITY VERIFICATION COMPLETED USING TWO (2) IDENTIFIERS: Name and Date of confirmed by patient verbally. FALL SCREENING: Has the patient had 2 falls in the last year or 1 fall with injury or currently using an Ambulatory Assistive Device (Walker, Cane, Wheelchair, Crutches, etc.)? No PATIENT GENDER DATA: Female. status: : No status: NO. PATIENT RELEVANT IMPLANT DATA REVIEWED: Not Applicable RADIOLOGY DEPARTMENT: General X-ray: Exam(s) Completed: Spine X-Ray(s): Lumbar AP / LAT / L5-S1 PERIPHERAL IV DATA: Not applicable SIGNED BY: RT Elda(R) December 03, 2021 4:38 PM [facility] 12-03-2021 Note HNO ID: [id number] Author: Lazarus Johnson MD Service: ? Author Type: Physician Type: Progress Notes Filed: 12/14/2021 9:39 AM Note Text: SUBJECTIVE: Ms. Short a 51 year old female referred by Self Referred presents with the complaint of low back pain. She wants to know if she is a candidate for SCS (saw [employer] website). Patient reports the date of onset of symptoms as many years and describes the location of the pain as midline. The pain is chronic, dull, aching, burning, sharp and dull, and rated as moderate, with radiation, to both feet. PAIN RATIO: (back:leg): Back > Leg Patient reports that LBP is increased by coughing, standing, walking and lying down and relieved by sitting. Ambulation distance (before needing to sit): Not at all Standing time (before needing to sit): 5 minutes OTHER BACK PAIN SYMPTOMS: NIGHT PAIN: Yes -unable to stay asleep PARESTHESIA: No POOR SLEEP: Yes BOWEL/BLADDER INCONTINENCE OR RETENTION: No ACTIVITY LIMITATIONS: ADLs PREVIOUS TREATMENTS LASTING SIX WEEKS IN THE LAST SIX MONTHS Active conservative therapy lasting 6 weeks in the last six months (see below) 1. Physical therapy: No 2. Home exercise program after PT: No 3. Occupational therapy: No 4. A physician supervised home exercise program (HEP): No 5. Neurosurgeon: No Passive conservative therapy lasting 6 weeks in the last six months (see below) 1. Medical devises: No 2. Acupuncture: No 3. Tens unit: No 4. Prescription pain medication: No 5. 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 HISTORY OF TRAUMA/OVERUSE OF AREA: No REVIEW OF SYSTEMS: GENERAL: Negative for malaise, significant weight loss and fever SEE HPI HEENT: Negative for frequent or significant headaches NECK: Negative for lumps, goiter, pain and significant neck swelling RESPIRATORY: Negative for cough, hemoptysis, wheezing, COPD, dyspnea or shortness of breath CARDIOVASCULAR: Negative for chest pain, leg swelling, hypertension, CHF or palpitations GI: No nausea, vomiting, or diarrhea : No history of dysuria, frequency or incontinence ADJUNCT PHILOSOPHY FACULTY: Negative for abnormal vaginal bleeding, abnormal vaginal discharge. MUSCULOSKELETAL: Low back SKIN: Negative for lesions, rash, and itching PSYCH: Positive for Depression and Anxiety HEMATOLOGY/LYMPHOLOGY Negative for prolonged bleeding, bruising easily or swollen nodes ENDOCRINE: Negative for cold or heat intolerance, polyuria, polydipsia and goiter PAST MEDICAL HISTORY Diagnosis Date - Depression - Generalized anxiety disorder - GERD (gastroesophageal reflux disease) - Hyperthyroidism - Low back pain - Neck pain PAST MEDICAL HISTORY Diagnosis Date - Depression - Generalized anxiety disorder - GERD (gastroesophageal reflux disease) - Hyperthyroidism - Low back pain - Neck pain No past surgical history on file. EXAMINATION: [id number]: Scoliosis: No Pelvic Tilt: No Leg Length discrepancy: Equal LATERAL: Cervical Lordosis: No Thoracic Kyphosis: No Lumbar Lordosis: No RANGE OF MOTION CERVICAL: Flexion: Not Limited Extension: Limited Rotation L: Limited Rotation R: Limited LUMBAR: Flexion: Not Limited Extension: Limited Rotation L: Not Limited Rotation R: Not Limited FINGER TO FLOOR DISTANCE: Knee Gait: Normal REFLEXES R L Biceps (C6): 1-2+ 1-2+ Triceps (C7): 1-2+ 1-2+ Brachioradiolis (C6): 1-2+ 1-2+ Ankle (S1): 2+ 2+ Knee (L4): 2+ 2+ STRENGTH (0-5): R L Deltoid (AB:C5,6): 5 5 Biceps (Flex:C5,6): 5 5 Wrist Ext.(C6,7): 5 5 Interrosei (C8,T1): 5 5 PSOAS (L2,3): 5 5 Gluteus (L5,S1,2): 5 5 Quadriceps (L3,4): 5 5 EHL (L5): 5 5 Soleus (S1): 5 5 SLR: Seated - Right Negative, Left Negative Babinski Negative Negative Neg Gaxiola's HIP: ROM is WNL without pain in flexion, extension and internal rotation. FABERES: Negative JENNIFER TEST 1) Tenderness: Appropriate 2) Simulation/Axial Loading/ROT: Appropriate 3) Distraction: Seated SLR: Appropriate 4) Reqional Disturbances: Appropriate 5) Overreaction: Appropriate PHYSICAL EXAMINATION: Pulse 85 Ht 152.4 cm (5') SpO2 96% GENERAL APPEARANCE: Well appearing, in no acute distress SKIN: Skin color, texture, turgor normal. No rashes or lesions. HEAD: Normocephalic. No masses, lesions, tenderness or abnormalities EYES: Conjunctivae/corneas clear. Pupils are equally round and reactive to light. Extraocular movements are intact. NECK: Neck supple, no adenopathy; thyroid symmetric, normal size, no bruits. LUNGS: Lungs clear to auscultation, No wheezing or rhonchi HEART: negative. RRR without murmur, gallop, or rubs. No ectopy. ABDOMEN: Abdomen soft, non-tender. Bowel sounds normal. No masses, organomegaly EXTREMITIES: Extremities normal. No deformities, edema, or skin discoloration. Good capillary refill. PULSES: Normal lower extremity pulses. NEURO: Gait normal. Reflexes normal and s (more content not included)... [facility] 12-03-2021 History of Present illness Narrative Radiology Service Progress Note PATIENT NAME: Nato Short DATE OF SERVICE: December 03, 2021 TIME: 4:38 PM PATIENT IDENTITY VERIFICATION COMPLETED USING TWO (2) IDENTIFIERS: Name and Date of confirmed by patient verbally. FALL SCREENING: Has the patient had 2 falls in the last year or 1 fall with injury or currently using an Ambulatory Assistive Device (Walker, Cane, Wheelchair, Crutches, etc.)? No PATIENT GENDER DATA: Female. status: : No status: NO. PATIENT RELEVANT IMPLANT DATA REVIEWED: Not Applicable RADIOLOGY DEPARTMENT: General X-ray: Exam(s) Completed: Spine X-Ray(s): Lumbar AP / LAT / L5-S1 PERIPHERAL IV DATA: Not applicable SIGNED BY: RT Elda(R) December 03, 2021 4:38 PM documented in this encounter [facility] 12-03-2021 History of Present illness Narrative SUBJECTIVE: Ms. Short a 51 year old female referred by Self Referred presents with the complaint of low back pain. She wants to know if she is a candidate for SCS (saw [facility] website). Patient reports the date of onset of symptoms as many years and describes the location of the pain as midline. The pain is chronic, dull, aching, burning, sharp and dull, and rated as moderate, with radiation, to both feet. PAIN RATIO: (back:leg): Back > Leg Patient reports that LBP is increased by coughing, standing, walking and lying down and relieved by sitting. Ambulation distance (before needing to sit): Not at all Standing time (before needing to sit): 5 minutes OTHER BACK PAIN SYMPTOMS: NIGHT PAIN: Yes -unable to stay asleep PARESTHESIA: No POOR SLEEP: Yes BOWEL/BLADDER INCONTINENCE OR RETENTION: No ACTIVITY LIMITATIONS: ADLs PREVIOUS TREATMENTS LASTING SIX WEEKS IN THE LAST SIX MONTHS Active conservative therapy lasting 6 weeks in the last six months (see below) 1. Physical therapy: No 2. Home exercise program after PT: No 3. Occupational therapy: No 4. A physician supervised home exercise program (HEP): No 5. Neurosurgeon: No Passive conservative therapy lasting 6 weeks in the last six months (see below) 1. Medical devises: No 2. Acupuncture: No 3. Tens unit: No 4. Prescription pain medication: No 5. 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 HISTORY OF TRAUMA/OVERUSE OF AREA: No REVIEW OF SYSTEMS: GENERAL: Negative for malaise, significant weight loss and fever SEE HPI HEENT: Negative for frequent or significant headaches NECK: Negative for lumps, goiter, pain and significant neck swelling RESPIRATORY: Negative for cough, hemoptysis, wheezing, COPD, dyspnea or shortness of breath CARDIOVASCULAR: Negative for chest pain, leg swelling, hypertension, CHF or palpitations GI: No nausea, vomiting, or diarrhea : No history of dysuria, frequency or incontinence ADJUNCT PHILOSOPHY FACULTY: Negative for abnormal vaginal bleeding, abnormal vaginal discharge. MUSCULOSKELETAL: Low back SKIN: Negative for lesions, rash, and itching PSYCH: Positive for Depression and Anxiety HEMATOLOGY/LYMPHOLOGY Negative for prolonged bleeding, bruising easily or swollen nodes ENDOCRINE: Negative for cold or heat intolerance, polyuria, polydipsia and goiter PAST MEDICAL HISTORY Diagnosis Date Depression Generalized anxiety disorder GERD (gastroesophageal reflux disease) Hyperthyroidism Low back pain Neck pain PAST MEDICAL HISTORY Diagnosis Date Depression Generalized anxiety disorder GERD (gastroesophageal reflux disease) Hyperthyroidism Low back pain Neck pain No past surgical history on file. EXAMINATION: [id number]: Scoliosis: No Pelvic Tilt: No Leg Length discrepancy: Equal LATERAL: Cervical Lordosis: No Thoracic Kyphosis: No Lumbar Lordosis: No RANGE OF MOTION CERVICAL: Flexion: Not Limited Extension: Limited Rotation L: Limited Rotation R: Limited LUMBAR: Flexion: Not Limited Extension: Limited Rotation L: Not Limited Rotation R: Not Limited FINGER TO FLOOR DISTANCE: Knee Gait: Normal REFLEXES R L Biceps (C6): 1-2+ 1-2+ Triceps (C7): 1-2+ 1-2+ Brachioradiolis (C6): 1-2+ 1-2+ Ankle (S1): 2+ 2+ Knee (L4): 2+ 2+ STRENGTH (0-5): R L Deltoid (AB:C5,6): 5 5 Biceps (Flex:C5,6): 5 5 Wrist Ext.(C6,7): 5 5 Interrosei (C8,T1): 5 5 PSOAS (L2,3): 5 5 Gluteus (L5,S1,2): 5 5 Quadriceps (L3,4): 5 5 EHL (L5): 5 5 Soleus (S1): 5 5 SLR: Seated - Right Negative, Left Negative Babinski Negative Negative Neg Gaxiola's HIP: ROM is WNL without pain in flexion, extension and internal rotation. FABERES: Negative JENNIFER TEST 1) Tenderness: Appropriate 2) Simulation/Axial Loading/ROT: Appropriate 3) Distraction: Seated SLR: Appropriate 4) Reqional Disturbances: Appropriate 5) Overreaction: Appropriate PHYSICAL EXAMINATION: Pulse 85 Ht 152.4 cm (5') SpO2 96% GENERAL APPEARANCE: Well appearing, in no acute distress SKIN: Skin color, texture, turgor normal. No rashes or lesions. HEAD: Normocephalic. No masses, lesions, tenderness or abnormalities EYES: Conjunctivae/corneas clear. Pupils are equally round and reactive to light. Extraocular movements are intact. NECK: Neck supple, no adenopathy; thyroid symmetric, normal size, no bruits. LUNGS: Lungs clear to auscultation, No wheezing or rhonchi HEART: negative. RRR without murmur, gallop, or rubs. No ectopy. ABDOMEN: Abdomen soft, non-tender. Bowel sounds normal. No masses, organomegaly EXTREMITIES: Extremities normal. No deformities, edema, or skin discoloration. Good capillary refill. PULSES: Normal lower extremity pulses. NEURO: Gait normal. Reflexes normal and symmetric. Sensation grossly intact. X-RAYS: NA IMPRESSION: (M51.37) Degeneration of lumbar or lumbosacral intervertebral disc (primary encounter diagnosis) (M54.16) Radiculopathy of lumbar region (M54.10) Radicular pain of left lower extremity (M51.36) Discogenic low back pain (Z98.1) History of fusion of cervical spine 2019 Hx of lumbar pain and DDD. She has seen Dr. Montero in [place] - with no improvement after LESI and radiof frequency with no effect. Has had PT different series since 2017. She saw Dr. Hidalgo in [place] who referred to Dr. Perez because of balance issues and she had cervical ACDF in 2019. She did not fel that her ACDF was helpful. She has 2+ DTR's in UE/LE Neg gaxiola's neg clonus pronounced lumbar lordosis equivocal pain with facet loading occas pain with cough Every day I am stiff and achy since my neck surgery. She has a 2019 MRi showing DDD and L 4-5 bulging and facet OA / effusion on Right. Minimal lateral recess narrowing. Plain films in 2019 show facet OA L to S1 and disc space narrowing L 5-S1. 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 Describes pain across low back. Occas numbness in left LE (usually after sitting). Pain at night. Pain with sitting LB and lateral buttocks and tailbone. With walking pain in LB and feels that pain radiates to her thighs. No DM. + hypothyr on Synthroid (Hx Ann's) + smoker 1 ppd - taking Chantix for 2 weeks Frequent awakening - AM fatigue. + snorer (was checked for sleep apnea several years ago) Wt = 232 lbs (evaluation for bariatric surgery and she needs to stop smoking x 3 months). PLAN: Discussed the above findings and potential options with the patient. Hx of chronic axial LB (90%) with some radition of pain in LE's (10%). Pain is somewhat neuropathic. Suggest: - XR - shows facet OA severe and L 4 on L 5 anterior listhesis - MRI thoracic and lumbar - bloodwork - hgba1c, WSr, CRp (all WNL) - after the above are reviewed (she will My Chart Message us) = psych evaluation prior to considering SCS trial The above exam has been completed by me and the pertinent and negative systems have been updated. I spent a total of 40 minutes on the date of the service which included preparing to see the patient, [id number] patient care, completing clinical documentation, obtaining and/or reviewing separately obtained history, performing a medically appropriate examination, counseling and educating the patient/family/caregiver, ordering medications, tests, or procedures, communicating with other HCPs (not separately reported) and independently interpreting results (not separately reported). Lazarus Johnson MD documented in this encounter [facility] 12-02-2021 Miscellaneous Notes Patient was advised of the following: This is a follow up phone call regarding your appointment with Dr Johnson, which you are scheduled to see at [facility] on 12/03/2021 1) Have you been evaluated and treated by a Pain Management physician currently or in the past? If so, we will need a release of care from your previous physician. 2) Have you had any outside x-rays or MRI's related to the pain you are being seen for? If so, please bring copies to your appointment with you. Also please recall that our physicians will not take over medications. You will need to make sure you have enough pain medications to last until your follow up appointment with your current prescribing physician. Dr. Johnson is primarily an interventional pain management provider, which means, they treat with physical therapy, injections and non-narcotic medications. Any questions or you need to reschedule please call us at [phone]. Left VM with new patient policy advised tpo call office with any questions or concerns'Keren Rosales MA documented in this encounter [facility] 11-19-2021 Note PROCEDURE: XR FOOT L T MIN 3 VIEWS HISTORY: Pain ; new mid plantar foot pain COMPARISON: XR foot left 11/12/2021 FINDINGS: BONES:No fracture, acute abnormality, or significant arthropathy. Tiny calcaneal plantar spur. SOFT TISSUES:No visible soft tissue swelling. EFFUSION:None visible. OTHER: Negative. IMPRESSION: 1. No acute or suspicious findings to account for patient's symptoms. 2. No significant degenerative changes. Electronically authenticated by: ZACH PEREZ Date: 2021-11-19 16:43 [facility] Evaluation note Diagnosis Degeneration of lumbar or lumbosacral intervertebral disc- Primary Radiculopathy of lumbar region Thoracic or lumbosacral neuritis or radiculitis, unspecified Radicular pain of left lower extremity Thoracic or lumbosacral neuritis or radiculitis, unspecified Discogenic low back pain Lumbago Hyperglycemia Other abnormal glucose History of fusion of cervical spine Arthrodesis status [facility] Diagnosis Radiculopathy of lumbar region- Primary Thoracic or lumbosacral neuritis or radiculitis, unspecified Lumbar disc herniation Displacement of lumbar intervertebral disc without myelopathy documented [facility] this [facility] Diagnosis Lumbar disc herniation- Primary Displacement of lumbar intervertebral disc without myelopathy Radiculopathy of lumbar region Thoracic or lumbosacral neuritis or radiculitis, unspecified Radiculopathy of lumbar region Thoracic or lumbosacral neuritis or radiculitis, unspecified Lumbar disc herniation Displacement of lumbar intervertebral disc without myelopathy Degeneration of lumbar or lumbosacral intervertebral disc Radicular pain of left lower extremity Thoracic or lumbosacral neuritis or radiculitis, unspecified Discogenic low back pain Lumbago History of fusion of cervical spine Arthrodesis status documented in this encounter [facility] note* Diagnosis Radiculopathy of lumbar region Thoracic or lumbosacral neuritis or radiculitis, unspecified Degeneration of lumbar or lumbosacral intervertebral disc Radicular pain of left lower extremity Thoracic or lumbosacral neuritis or radiculitis, unspecified Discogenic low back pain Lumbago documented [facility] this [facility] Diagnostic Procedure Only (Routine) - Closed Specialty Diagnoses / Procedures Referred By Contac t Referred To Contact XR IMAGING Diagnoses Radiculopathy of lumbar region Degeneration of lumbar or lumbosacral intervertebral disc Radicular pain of left lower extremity Discogenic low back pain Procedures XR LUMBAR GENERAL 3V AP/LAT/L5-S1 RADEX SPINE LUMBOSACRAL 2/3 VIEWS Lazarus Johnson MD [address] [place] [address] Xr Imaging Referral ID Status Reason Start Date Expiration Date V isits Requested Visits Authorized [id number] Closed Auto-Generate d Referral 12/03/2021 01/02/2023 1 1 [facility] Summary Purpose Family History No Family History Records FoundNo Family History Records FoundNo Family History Records FoundNo Family History Records FoundNo Family History Records FoundNo Family History Records FoundNo Family History Records Found Advance Directives No Advanced Directives Records FoundNo Advanced Directives Records FoundNo Advanced Directives Records FoundNo Advanced Directives Records FoundNo Advanced Directives Records FoundNo Advanced Directives Records FoundNo Advanced Directives Records Found Reason for Referral Specialty Diagnoses / Procedures Referred By Contac t Referred To Contact MR IMAGING Diagnoses Radiculopathy of lumbar region Procedures MRI LUMBAR SPINE WO IVCON MRI SPINAL CANAL LUMBAR W/O CONTRAST MATERIAL Lazarus Johnson MD [address] [place] [address] Mr Imaging Referral ID Status Reason Start Date Expiration Date Visits Requested Visits Authorized [id number] Authorized Auto-Generat ed Referral 12/03/2021 12/21/2021 1 1 Specialty Diagnoses / Procedures Referred By Contac t Referred To Contact MR IMAGING Diagnoses Radiculopathy of lumbar region Procedures MRI THORACIC SPINE WO IVCON MRI SPINAL CANAL THORACIC W/O CONTRAST MATRL Lazarus Johnson MD [address] [place] [address] Mr Imaging Referral ID Status Reason Start Date Expiration Date Visits Requested Visits Authorized [id number] Authorized Auto-Generat ed Referral 12/03/2021 12/21/2021 1 1 Specialty Diagnoses / Procedures Referred By Contac t Referred To Contact XR IMAGING Diagnoses Radiculopathy of lumbar region Degeneration of lumbar or lumbosacral intervertebral disc Radicular pain of left lower extremity Discogenic low back pain Procedures XR LUMBAR GENERAL 3V AP/LAT/L5-S1 RADEX SPINE LUMBOSACRAL 2/3 VIEWS Lazarus Johnson MD [address] [place] [address] Xr Imaging Referral ID Status Reason Start Date Expiration Date V isits Requested Visits Authorized [id number] Closed Auto-Generate d Referral 12/03/2021 01/02/2023 1 1 Specialty Diagnoses / Procedures Referred By Contac t Referred To Contact Diagnoses Radiculopathy of lumbar region Lumbar disc herniation Procedures CONSULT TO SPINE SURGERY OFFICE/OUTPATIENT [facility] 60-74 MINUTES Lindy Gunderson PA-C [address] [place] [address] Referral ID Status Reason Start Date Expiration Date Visits Requested Visits Authorized [id number] Authorized PCP Requested Referral 01/14/2022 01/14/2023 1 1 Additional Source Comments INFORMATION SOURCE (unrecogn ized section and content) DATE CREATED AUTHOR 10/22/2020 [facility] DATE CREATED AUTHOR AUTHOR'S ORGANIZ ATION 01/29/2022 [facility] DATE CREATED AUTHOR AUTHOR'S ORGANIZ ATION 03/04/2022 [facility] DATE CREATED AUTHOR AUTHOR'S ORGANIZ ATION 07/21/2022 [facility] DATE CREATED AUTHOR AUTHOR'S ORGANIZ ATION 02/13/2023 [facility] DATE CREATED AUTHOR AUTHOR'S ORGANIZ ATION 03/15/2023 [facility] DATE CREATED AUTHOR AUTHOR'S ORGANIZ ATION 05/25/2023 [facility] EPIC Source Comments (unrecognize d section and content) In the event this informatio n is protected by the Federal Confidentiality of Alcohol and Drug Abuse Patient Records regulations: The Federal rules restrict any use of the information to criminally investigate or prosecute any alcohol or drug abuse patient.[facility] the event this information is protected by the Federal Confidentiality of Alcohol and Drug Abuse Patient Records regulations: The Federal rules restrict any use of the information to criminally investigate or prosecute any alcohol or drug abuse patient.[facility] the event this information is protected by the Federal Confidentiality of Alcohol and Drug Abuse Patient Records regulations: The Federal rules restrict any use of the information to criminally investigate or prosecute any alcohol or drug abuse patient.[facility] the event this information is protected by the Federal Confidentiality of Alcohol and Drug Abuse Patient Records regulations: The Federal rules restrict any use of the information to criminally investigate or prosecute any alcohol or drug abuse patient.[facility] the event this information is protected by the Federal Confidentiality of Alcohol and Drug Abuse Patient Records regulations: The Federal rules restrict any use of the information to criminally investigate or prosecute any alcohol or drug abuse patient.[facility] the event this information is protected by the Federal Confidentiality of Alcohol and Drug Abuse Patient Records regulations: The Federal rules restrict any use of the information to criminally investigate or prosecute any alcohol or drug abuse patient.[facility] the event this information is protected by the Federal Confidentiality of Alcohol and Drug Abuse Patient Records regulations: The Federal rules restrict any use of the information to criminally investigate or prosecute any alcohol or drug abuse patient.[facility] the event this information is protected by the Federal Confidentiality of Alcohol and Drug Abuse Patient Records regulations: The Federal rules restrict any use of the information to criminally investigate or prosecute any alcohol or drug abuse patient.[facility] the event this information is protected by the Federal Confidentiality of Alcohol and Drug Abuse Patient Records regulations: The Federal rules restrict any use of the information to criminally investigate or prosecute any alcohol or drug abuse patient.[facility] the event this information is protected by the Federal Confidentiality of Alcohol and Drug Abuse Patient Records regulations: The Federal rules restrict any use of the information to criminally investigate or prosecute any alcohol or drug abuse patient.[facility] the event this information is protected by the Federal Confidentiality of Alcohol and Drug Abuse Patient Records regulations: The Federal rules restrict any use of the information to criminally investigate or prosecute any alcohol or drug abuse patient.[facility] the event this information is protected by the Federal Confidentiality of Alcohol and Drug Abuse Patient Records regulations: The Federal rules restrict any use of the information to criminally investigate or prosecute any alcohol or drug abuse patient.[facility] the event this information is protected by the Federal Confidentiality of Alcohol and Drug Abuse Patient Records regulations: The Federal rules restrict any use of the information to criminally investigate or prosecute any alcohol or drug abuse patient.[facility] Reason for Visit (unrecogniz ed section and content) Reason Comments Radiology MRI Specialty Diagnoses / Procedures Referred By Contac t Referred To Contact MR IMAGING Diagnoses Radiculopathy of lumbar region Procedures MRI THORACIC SPINE WO IVCON MRI SPINAL CANAL THORACIC W/O CONTRAST MATRL Lazarus Johnson MD [address] [facility] [place] [address] [place] [id number] Referral ID Status Reason Start Date Expiration Date V isits Requested Visits Authorized [id number] Closed Auto-Generate d Referral 12/23/2021 06/26/2022 1 1 Reason Comments Appointment pain management Reason Comments Consult Reason Comments Radiology XR Specialty Diagnoses / Procedures Referred By Contac t Referred To Contact XR IMAGING Diagnoses Radiculopathy of lumbar region Degeneration of lumbar or lumbosacral intervertebral disc Radicular pain of left lower extremity Discogenic low back pain Procedures XR LUMBAR GENERAL 3V AP/LAT/L5-S1 RADEX SPINE LUMBOSACRAL 2/3 VIEWS Lazarus Johnson MD [address] [facility] [place] [address] Xr Imaging Referral ID Status Reason Start Date Expiration Date V isits Requested Visits Authorized [id number] Closed Auto-Generate d Referral 12/03/2021 01/02/2023 1 1 FOR RECORDS PERTAINING TO PATIENTS WHO ARE OR HAVE BEEN ENROLLED IN A CHEMICAL DEPENDENCY/SUBSTANCEABUSE PROGRAM, SOME INFORMATION MAY BE OMITTED. This clinical summary was aggregated from multiple sources. Caution should be exercised in using it in the provision of clinical care. This summary normalizes information from multiple sources, and as a consequence, information in this document may materially change the coding, format and clinical context of patient data. In addition, data may be omitted in some cases. CLINICAL DECISIONS SHOULD BE BASED ON THE PRIMARY CLINICAL RECORDS. [employer] provides no warranty or guarantee of the accuracy or completeness of information in this document.
[2023-09-05 09:31] LABS: Chol HDL Ratio 6.5; Cholesterol 279 mg/dL (<=200); HDL Cholesterol 43 mg/dL (40-60); Thyroid Stimulating Hormone 15.127 uIU/mL (0.358-3.740); Triglycerides 398 mg/dL (<=150); VLDL CHOLESTEROL 79.6 mg/dL
== END 2023-09-05 08:43 | disposition home or self-care (01) ==
LOC: LAB 08:44
PROVIDERS: PCP Nurse Practitioner; Visit Provider Nurse Practitioner
DX: E03.9 Hypothyroidism, unspecified (principal)
CPT/HCPCS: 36415; 80061; 84439; 84443

== ENCOUNTER 2023-12-12 08:15 | Outpatient (OUT) | payer OTHER, SELFPAY ==
--- OUTSIDE RECORDS SUMMARY | 2023-12-12 08:30 | XMS_ITS | CCD ---
Author Organization [place] [employer] Care Team Providers Care Screener Operator Name Role Phone Unavailable Primary Care Provider Unavailabl e AICHHOLZ, APPLICATION DEFENSE MANAGER WHIT Consulting Unavailable AICHHOLZ, APPLICATION DEFENSE MANAGER WHIT Attending Unavailable AICHHOLZ, APPLICATION DEFENSE MANAGER WHIT Admitting Unavailable AICHHOLZ, APPLICATION DEFENSE MANAGER WHIT Primary Care Unavailable AICHHOLZ, APPLICATION DEFENSE MANAGER WHIT Admitting Unavailable AICHHOLZ, APPLICATION DEFENSE MANAGER WHIT Primary Care Unavailable AICHHOLZ, APPLICATION DEFENSE MANAGER WHIT Consulting Unavailable AICHHOLZ, APPLICATION DEFENSE MANAGER WHIT Attending Unavailable AICHHOLZ, APPLICATION DEFENSE MANAGER WHIT Admitting Unavailable AICHHOLZ, APPLICATION DEFENSE MANAGER WHIT Primary Care Unavailable AICHHOLZ, APPLICATION DEFENSE MANAGER WHIT Attending Unavailable DR NAOMIE THEODORE V Consulting Unavailable AICHHOLZ, APPLICATION DEFENSE MANAGER WHIT Consulting Unavailable JAYASHREE, DR DONATO Admitting Unavailable AICHHOLZ, APPLICATION DEFENSE MANAGER WHIT Primary Care Unavailable JAYASHREE, DR DONATO Attending Unavailable AICHHOLZ, APPLICATION DEFENSE MANAGER WHIT Admitting Unavailable AICHHOLZ, APPLICATION DEFENSE MANAGER WHIT Primary Care Unavailable AICHHOLZ, APPLICATION DEFENSE MANAGER WHIT Attending Unavailable AICHHOLZ, APPLICATION DEFENSE MANAGER WHIT Primary Care Unavailable DR SILVINA SMITH Attending Unavailable DR SILVINA SMITH Admitting Unavailable DR NAOMIE THEODORE V Consulting Unavailable DR SILVINA SMITH Consulting Unavailable HEIDI MEJIAS Consulting Unavailable Naomie Velasquez Consulting Unavailable SISTER, TE Consulting Unavailable AICHHOLZ, APPLICATION DEFENSE MANAGER WHIT Primary Care Unavailable ONEIL LOPEZ Consulting Unavailable ONEIL LOPEZ Attending Unavailable ONEIL LOPEZ Admitting Unavailable Naomie Velasquez Consulting Unavailable DR MEY FARNSWORTH Attending Unavailable JAVDA, DR MATHIAS Admitting Unavailable AICHHOLZ, APPLICATION DEFENSE MANAGER WHIT Primary Care Unavailable DR MEY FARNSWORTH Consulting Unavailable AICHHOLZ, APPLICATION DEFENSE MANAGER WHIT Primary Care Unavailable DR LANDEN GONZALEZ Consulting Unavailable DIOGENES MILLER Attending Unavailable ANGELA, DIOGENES Admitting Unavailable ZIA DESAI Consulting Unavailable AICHHOLZ, APPLICATION DEFENSE MANAGER WHIT Admitting Unavailable AICHHOLZ, APPLICATION DEFENSE MANAGER WHIT Consulting Unavailable AICHHOLZ, APPLICATION DEFENSE MANAGER WHIT Attending Unavailable MACK GUAMAN Primary Care Unavailable Naomie Velasquez Consulting Unavailable AICHHOLZ, APPLICATION DEFENSE MANAGER WHIT Primary Care Unavailable LING GAMING Attending Unavailable AMBERLY, LING Admitting Unavailable DR ZACH PEREZ Consulting Unavailable LING GAMING Consulting Unavailable AICHHOLZ, APPLICATION DEFENSE MANAGER WHIT Admitting Unavailable AICHHOLZ, APPLICATION DEFENSE MANAGER WHIT Primary Care Unavailable AICHHOLZ, APPLICATION DEFENSE MANAGER WHIT Attending Unavailable AICHHOLZ, APPLICATION DEFENSE MANAGER WHIT Primary Care Unavailable AICHHOLZ, APPLICATION DEFENSE MANAGER WHIT Admitting Unavailable AICHHOLZ, APPLICATION DEFENSE MANAGER WHIT Consulting Unavailable AICHHOLZ, APPLICATION DEFENSE MANAGER WHIT Attending Unavailable Unavailable Primary Care Provider Unavailnia elias AICHHOLZ, WHIT JSugey Primary Care Unavailable ELGAFY, DILLAN K Referring [...] DILLAN Referring Unavailable AICHHOLZ, WHIT Attending Unavailable AICHHOLZ, WHIT Attending Unavailable Allergies Allergy Classification Reported Allergen(s) Allergy Type Date of Onset Reaction(s) Facility (3 sources) Penicillins; Translations: [PENICILLINS] Drug Allergy 04-11-2013 [facility] (11 sources) Penicillins Drug Allergy 04-11-2013 [facility] (2 sources) Penicillins Drug allergy (disorder) 04-11-[address] [facility] Repository (1 source) Chlorhexidine; Translations: [CHLORHEXIDINE GLUCONATE] Drug Allergy 04-21-2022 [facility] Repository Medications Completed/Discontinued Medications Medication Drug Class(es) Dates Sig (Normalized) Sig (Original) [id number] 200 actuat albuterol 0.09 mg/actuat metered dose [...] 04-29-2022 Chronic Other aftercare (1 source) Other long term care phlebotomist (current) drug therapy; Translations: [OTH PRODUCTION FOREMAN CURRENT DRUG THERAPY] Onset: 05-31-2022 Episodic Other [...] Interpretation Reference Range Facility Follow-Upon 03-10-2023 Follow-Up [id number] Nato Short 1970 F Date Provider Department Center 03/10/2023 DILLAN CRANE [facility]TH[facility] Family History Family history unknown: Yes Level of Service:89959 [place] OFFICE/OUTPATIENT ESTABLISHED MOD MDM 30-39 MIN Normal [facility] CT CERVICAL SPINE WO CONTRAS Ton 02-14-2023 [...] by: Maddie Simpson MD Signed by: Maddie Simspon MD 02/13/23 Final result Normal [facility] Refillon 11-07-2022 Refill [id number] Ar Shorta 1970 F Date Provider Department Center 11/07/2022 DILLAN CRANE [facility] Family History Family history unknown: Yes Reason for Visit and Comments: Med Refill [[id number]] [facility] 2911-05-2022 29 Addended by: MASON DOUGLAS on: 11/05/2022 09:46 AM Modules accepted: Orders [facility] 36on 11-01-2022 36 Requesting refill of Fioricet... This is not something you typically prescribe, are you okay to continue filling or refer to PCP? She is taking for ongoing headaches. Last visit 10/07/22 [facility] Refillon 10-31-2022 Refill [id number] Nato Short 1970 F Date Provider Department Center [facility] Family history unknown: Yes Reason for Visit and Comments: Med Refill [[id number]] [facility] 3610-22-2022 36 Please advise refill request. [facility] Refillon 10-22-2022 Refill [id number] Nato Short 1970 F Date Provider Department Center 10/22/2022 [facility] Family History Family history unknown: Yes Reason for Visit and Comments: Med Refill [[id number]] [facility] Patient Messageon 10-10-2022 Patient Message [id number] Nato Short 1970 F Date Provider Department Center 10/10/2022 DILLAN CRANE [facility] Family History Family history unknown: Yes [facility] Refillon 10-09-2022 Refill [id number] Nato Short 1970 F Date Provider Department Center 10/09/2022 DILLAN CRANE [facility] Family History Family history unknown: Yes Reason for Visit and Comments: Med Refill [[id number]] [facility] 36on 10-08-2022 36 Fioricet ordered to patient's pharmacy and she was informed. [facility] 36on 10-07-2022 36 Pt was seen in [facility] today and is awaiting CT for further plan. She would like to know if there is anything that can be prescribed for the headaches? Please advise. [facility] Follow-Upon 10-07-2022 Follow-Up [id number] Nato Short 1970 F Date Provider Department Center 10/07/2022 [id number] DILLAN BERTOO ORTHO [facility] Family History Family history unknown: Yes Level of Service:91833 [place] OFFICE/OUTPATIENT ESTABLISHED LOW MDM 20-29 MIN [facility] 36on 09-20-2022 36 Please advise refill request. [facility] Refillon 09-20-2022 Refill [id number] Nato Short 1970 F Date Provider Department Center 09/20/2022 266-ELGAFY, DILLAN DOROTHEA [facility] Family History Family history unknown: Yes Reason for Visit and Comments: Med Refill [[id number]] [facility] 36on 08-23-2022 36 Please advise refill request. [facility] Refillon 08-23-2022 Refill [id number] Nato Short 1970 F Date Provider Department Center 08/23/2022 DILLAN CRANE [facility] Family History Family history unknown: Yes Reason for Visit and Comments: Med Refill [[id number]] [facility] Letter (Out)on 08-09-2022 Letter (Out) [id number] Nato Short 1970 F Date Provider Department Center 08/09/[address] [facility] Family History Family history unknown: Yes [facility] 36on 08-06-2022 36 Please advise refill request. [facility] Refillon 08-06-2022 Refill [id number] Nato Short 1970 F Date Provider Department Center 08/06/[address]22 [address] [facility] Family History Family history unknown: Yes Reason for Visit and Comments: Med Refill [[id number]] [facility] 36on 07-29-2022 36 Letter sent through [employer] to patient and patient was informed. [facility] 36on 07-28-2022 36 Ok to write new taisha er, per Dr. Newby. [facility] 36 Pt called stating th at she [...] can gradually start back to work slowly? [facility] Covid-19 PCR ([facility])on 06-27 SARS-CoV-2 (COVID-19) RNA RENÉ+probe Ql (Unsp spec) Not detected Normal NOT DETECTED [facility] Comment on above: Result Comment: This test is not yet approved or cleared by the [place] FDA. When there are no FDA-approved or cleared tests available, and other criteria are met, FDA can make tests available under an emergency access mechanism called an Emergency Use Authorization (EUA). The EUA for this test is supported by the [place] of Health and Human Service's (HHS's) declaration [...] consistent with SARS-CoV-2. Performed By: #### [facility] #### [facility] [address] [place] [address] Dr. Radha Suarez INFLUENZA A AND B AGon 07-15 INFLUANEGH SEE BELOW Normal [facility] Comment on above: Result Comment: Nega tive for Flu A protein angiten. Infection due to Flu A cannot be ruled out. Flu A angiten in the sample may be below the detection limit of the test. Performed By: #### C [facility] #### [facility] [address] [place] [address] Dr. Radha Suarez [facility] SEE BELOW Normal [facility] Comment on above: Result Comment: Nega tive for Flu B protein antigen. Infection due to Flu B cannot be ruled out. Flu B antigen in the sample may be below the detection limit of the test. Performed By: #### C [facility] #### [facility] [address] [place] [address] Dr. Radha Suarez INFLUENZA A AG Negative Normal NEGATIVE SEE COMMENT [facility] Comment on above: Performed By: #### C [facility] #### [facility] [address] [place] [address] Dr. Radha Suarez INFLUENZA B AG Negative Normal NEGATIVE SEE COMMENT [facility] Comment on above: Performed By: #### C [facility] #### [facility] [address] [place] [address] Dr. Radha Suarez Office Visiton 07-08-2022 Follow-up visit [id number] Nato Short 1970 F Date Provider Department Center 07/08/2022 DILLAN CRANE [facility] Family History Family history unknown: Yes Level of Service:78466 [place] POSTOP FOLLOW UP VISIT RELATED TO ORIGINAL PX [facility] 36on 07-05-2022 36 Please advise refill request. [facility] Refillon 07-05-2022 Refill [id number] Nato Short 1970 F Date Provider Department Center 07/05/2022 DILLAN CRANE [facility] Family History Family history unknown: Yes Reason for Visit and Comments: Med Refill [[id number]] [facility] 36on 06-25-2022 36 Pt was informed. She will call the pharmacy that this was already refilled and most likely on hold. [facility] 36 Patient just filled 2 weeks ago same prescription [facility] 36 Please advise refill request. [facility] Follow-Upon 06-16-2022 Follow-Up [id number] Nato Short 1970 F Date Provider Department [place] 06/16/2022 REKHA SOMERS MP [facility]THO [facility] Family History Family history unknown: Yes Level of Service:74531 [place] POSTOP FOLLOW UP VISIT RELATED TO ORIGINAL PX Reason for Visit and Comments: Post-op [483] [facility] 36on 06-12-2022 36 Please advise refill request. [facility] Refillon 06-12-2022 Refill [id number] Nato Short 1970 F Date Provider Department [place] 06/12/2022 [facility] No family history on file Reason for Visit and Comments: Med Refill [[id number]] [facility] 36on 06-09-2022 36 Pt called with yeast infection with taking the antibiotics for postsurgical wound. Diflucan ordered to patient's pharmacy, per Dr. Newby. Pt was informed. [facility] Refillon 06-07-2022 Refill [id number] Nato Short 1970 F Date Provider Department [place] 06/07/2022 [facility] CRANE [facility] No family history on file Reason for Visit and Comments: Med Refill [[id number]] [facility] Office Visiton 06-04-2022 Follow-up visit [id number] Nato Short 1970 F Date Provider Department Center 06/04/2022 DILLAN CRANE [facility]PR[facility]ILCAR No family history on file Level of Service:50604 [place] POSTOP FOLLOW UP VISIT RELATED TO ORIGINAL PX Reason for Visit and Comments: Follow-up [[id number]] - Wound check [facility] CULTURE WOUNDon 06-01-2022 CULTURE WOUND Isolate 1 Pseudomonas aeruginosa Light growth of ORGANISM 1 Pseudomonas aeruginosa ANTIBIOTIC M.I.C RX STATUS Piperacillin/Tazobactam <=4 S F Ceftazidime <=1 S F Imipenem 1 S F Amikacin 4 S F Gentamicin <=1 S F Tobramycin <=1 S F Ciprofloxacin <=0.25 S F Levofloxacin <=0.12 S F Normal [facility] Comment on above: Performed By: #### [facility] #### [facility] [address] [address] [address] Radha Suarez 36on 05-31-2022 36 Please advise refill request. [facility] Refillon 05-31-2022 Refill [id number] Nato Short 1970 F Date Provider Department [place] 05/31/2022 DILLAN CRANE MP ORTHO MPORTHO No family history on file Reason for Visit and Comments: Med Refill [[id number]] [facility] 36on 05-25-2022 36 Please advise refill request. [facility] Refillo 05-25-2022 Refill [id number] Nato Short 1970 F Date Provider Department [place] 05/25/2022 DILLAN CRANE MP ORTHO [facility]ORTHO No family history on file Reason for Visit and Comments: Med Refill [[id number]] [facility] Office Visiton 05-19-2022 Follow-up visit [id number] Nato Short 1970 F Date Provider Department [place] 05/19/2022 DILLAN CRANE MP ORTHO [facility]ORTHO No family history on file Level of Service:91491 [place] POSTOP FOLLOW UP VISIT RELATED TO ORIGINAL PX Reason for Visit and Comments: Post-op [483] - L4-5 decompression /fusion [facility] 36on 05-17-2022 36 Duplicate request. [facility] 36 Please advise refill request. [facility] 36 Please advise refill request. [facility] Refillon 05-17-2022 Refill [id number] Nato Short 1970 F Date Provider Department [place] 05/17/2022 DILLAN CRANE MP ORTHO MPORTHO No family history on file Reason for Visit and Comments: Med Refill [[id number]] [facility] Refillon 05-15-2022 Refill [id number] PhilipNato 1970 F Date Provider Department Center 05/15/2022 DILLAN CRANE MP No family history on file Reason for Visit and Comments: Med Refill [[id number]] [facility] 36on 05-06-2022 36 Pt may run out of medications over the weekend. Please advise refill request. [facility] Refillon 05-06-2022 Refill [id number] PhilipNato 1970 F Date Provider Department [place] 05/06/2022 DILLAN CRANE MP No family history on file Reason for Visit and Comments: Med Refill [[id number]] [facility] DSon 05-04-2022 DS Admission Admitted 04/29/2022 for [...] mouth in the morning. ergocalciferol 1.25 MG (75829 Units) capsule Commonly known as: Vitamin D-2 [...] MCG (1000 units) tablet ergocalciferol 1.25 MG (25771 Units) capsule ondansetron ODT 4 mg disintegrating [...] MPORTHO Test Results Pending At Discharge Normal [facility] NURSNOTEon 05-04-2022 NURSNOTE Pt upset related to pre-cert for SNF .Nato Short reports she is post-op day 5 and does have help at home ,also reports surgeon expressed that she is not able to have aggressive therapy for 6-8 weeks.She has used [facility] Home care in the past and would like to discharge home with home care .Message left for SS. Ortho aware ,order implemented per Ortho for Home [facility] . Daughter notified and will transport . Normal [facility] 30on 05-03-2022 30 The patient is Moderately Stable - Low risk of patient condition declining or worsening The patient's goals for the shift include comfort The clinical goals for the shift include comfort Normal [facility] BASIC METABOLIC PANELon 11-0 Anion gap [Moles/Vol] 8 mmol/L Normal 7-20 [facility] Comment on above: Performed By: #### L AB15 ####[facility] ([facility])[address] [facility] [place] [address] Calcium [Mass/Vol] 7.8 mg/dL Low 8.6-10.3 [facility] Comment on above: Performed By: #### L AB15 ####[facility] [place] [place] [address] Chloride [Moles/Vol] 105 mmol/L Normal 98-107 [facility] Comment on above: Performed By: #### L AB15 ####[facility] ([facility] [place] [place] [address] CO2 [Moles/Vol] 26 mmol/L Normal 21-31 [facility] Comment on above: Performed By: #### L AB15 ####[facility] ([facility])[address] [place] [place] [address] Creatinine [Mass/Vol] 0.71 mg/dL Normal 0.60-1.20 [facility] Comment on above: Performed By: #### L AB15 ####[facility] ([facility])[address] [place] [address] GLOMERULAR FILTRATION RATE ML/MIN/1.73 SQ M.PREDICTED 98.9 mL/min/1.73m*2 Normal >60.0 [facility] Comment on above: Result Comment: [facility]???s estimated glomerular filtration rate (eGFR) will no [...] of individuals. Performed By: #### L AB15 ####[facility] ([facility])[address] [place] [address] Glucose [Mass/Vol] 127 mg/dL High 70-100 [facility] Comment on above: Performed By: #### L AB15 ####[facility] ([facility])[address] [place] [address] Potassium [Moles/Vol] 4.2 mmol/L Normal 3.5-5.1 [facility] Comment on above: Performed By: #### L AB15 ####[facility] ([facility])[address] [place] [address] Sodium [Moles/Vol] 139 mmol/L Normal 136-145 [facility] Comment on above: Performed By: #### L AB15 ####[facility] ([facility])[address] [place] [address] Urea nitrogen [Mass/Vol] 9 mg/dL Normal 7-25 [facility] Comment on above: Performed By: #### L AB15 ####[facility] ([facility])[address] [place] [address] UREA NITROGEN/CREATININE (MASS RATIO) IN SER/PLAS 12.68 Normal [facility] Comment on above: Performed By: #### L AB15 ####[facility] ([facility])[address] [place] [address] CBCon 04-30-2022 Erythrocyte distribution width (RBC) [Ratio] 14.8 % Normal 11.5-15.0 [facility] Comment on above: Performed By: #### L [id number] ####[facility] ([facility])[address] [place] [address] ERYTHROCYTE MEAN CORPUSCULAR HEMOGLOBIN CONCENTRATION (G/DL) BY AUTOMATED 32.4 g/dL Normal 32.0-35.0 [facility] Comment on above: Performed By: #### L [id number] ####[facility] ([facility])[address] [place] [address] Hematocrit (Bld) [Volume fraction] 34.0 % Low 36.0-48.0 [facility] Comment on above: Performed By: #### L [id number] ####[facility] ([facility])[address] [place] [address] Hemoglobin (Bld) [Mass/Vol] 11.0 g/dL Low 12.0-15.0 [facility] Comment on above: Performed By: #### L [id number] ####[facility] ([facility])[address] [place] [address] MCH (RBC) [Entitic mass] 31.0 pg Normal 27.0-33.0 [facility] Comment on above: Performed By: #### L [id number] ####[facility] ([facility])[address] [place] [address] MCV (RBC) [Entitic vol] 95.8 fL Normal 82.0-98.0 [facility] Comment on above: Performed By: #### L [id number] ####[facility] ([facility])[address] [place] [address] PLATELETS (10*3/UL) IN BLOOD AUTOMATED COUNT 284 10*3/uL Normal 150-400 [facility] Comment on above: Performed By: #### L [id number] ####[facility] ([facility])[address] [place] [address] RBC (Bld) [#/Vol] 3.55 10*6/uL Low 3.80-5.00 [facility] Comment on above: Performed By: #### L [id number] ####[facility] ([facility])[address] [place] [address] WBC (Bld) [#/Vol] 14.08 10*3/uL High 4.00-10.60 [facility] Comment on above: Performed By: #### L [id number] ####[facility] ([facility])[address] [place] [address] HPon 04-29-2022 HP H&P reviewed. The patient was examined and there are no changes to the H&P. Normal [facility] NURSNOTEon 04-29-2022 NURSNOTE Updated [facility] 04-29-2022 OPNOTE L4-5 DECOMPRESSION ( L), INSTRUMENTED LUMBAR FUSION (L) Operative Note Date: 04/29/2022 Location: [facility] OR Name: Nato Short, : 1970, Surgeons * Dillan Newby - Primary Guide Changer: Michael Morales M.D. Preoperative Diagnosis: L 4-5 grade I spondylolisthesis with foramina stenosis and L5 radiculopathy (ICD-10 M43.16, M99.53, M54.16). Postoperative Diagnosis: L 4-5 grade I spondylolisthesis with foramina stenosis and L5 radiculopathy (ICD-10 M43.16, M99.53, M54.16). OPERATION: 1. L 4-5posterior lumbar spine decompression (03833). 2. L 4-5 transforaminal lumbar interbody fusion using autograft, crushed cancellous allograft, [employer] and threaded bone dowel spacer 11 mm and posterolateral fusion using autograft, crushed cancellous allograft and [employer] (93648, 93078). 3. L 4-5 instrumentation using Expedium system from [employer] (17321). 4. Local bone autograft harvesting and use of crush cancellous allograft (95285, 03230). 5. Use of intraoperative fluoroscopy (08729). Procedure Summary Anesthesia: General ASA: III Position: Prone position on the Rashid table in reverse Trendelenburg position. Estimated Blood Loss: 250 mL Total IV Fluids: 1000 mL Drains: Hemovac Closed/Suction Drain Right Back 10 Fr. (Active) Urethral Catheter Non-latex (Active) Implants Type Name Action Serial No. [employer] READIGRAFT CANCELLOUS Implanted [id number] [employer] VIVGEN Implanted [id number] [employer] VIVIGEN 10CC Implanted ID: [id number] expedium 7x40 screws Implanted Screw SETSCREW,INNER,SINGLE - [id number] Implanted expedium 45mm rods Implanted T-PLIF SPACER 11MM Implanted [id number] Staff: Feed In Worker: Zoey Tellez RN Scrub Person: Cherise Cardona [...] has been seen in preoperative clinic at [facility]. Description of Procedure: The patient was taken [...] the interverte (more content not included)... Normal [facility] POCT GLUCOSE METER UNSOLICIT ED RESULTSon 04-29-2022 Glucose [Mass/Vol] 105 mg/dL Normal 70-105 [facility] Comment on above: Result Comment: sonia pickard Performed By: #### L [id number] ####[facility] (BEAKER)[address] [place] [address] POCT SARS-COV-2 PCRon 2021 POC SARS-COV-2 ANTIGEN Negative Normal Negative [facility] Comment on above: Result Comment: ID N [...] Certificate of Accreditation. Performed By: #### L [id number] ####[facility] (BEAKER)[address] [place] [address] VITAMIN D 25 HYDROXYon 04-29 CALCIDIOL (25 [place] VITAMIN D3) (NG/ML) IN SER/PLAS 9.2 ng/mL Low 30.0-80.0 [facility] Comment on above: Result Comment: >80. 0 Toxicity possible Performed By: #### L [id number] ####[facility] (BEAKER)[address] [place] [address] Orders Onlyon 04-27-2022 Orders Only [id number] Nato Short 1970 F Date Provider Department [place] 04/27/2022 [id number], HISTORICAL [facility] Medical No family history on file [facility] 36on 04-26-2022 36 Pt left voicemail asking if tizanidine can be increased from twice daily to three times daily as needed? Pt was previously getting prescription from PCP. Please advise. [facility] Refillon 04-26-2022 Refill [id number] Nato Short 1970 F Date Provider Department [place] 04/26/2022 Chucky-DILLAN NEWBY MP ORTHO MPORTHO No family history on file [facility] [id number] 04-21-2022 [id number] MEDICATIONS TO TAKE DOS:OMEPRAZOLE, GABAPENTIN,SYNTHROID, XANAFLEX MEDICATIONS TO HOLD: MOBIC X 1 WEEK NPO AFTR MIDNIGHT ONE PROFESSIONAL WRESTLER NEEDS TO ACCOMPANY YOU, DRIVE YOU HOME, AND STAY WITH YOU FOR 24HOURS AFTER THE PROCEDURE. REMOVE ALL JEWELRY AND LEAVE AT HOME DOS Normal [facility] APTTon 04-21-2022 ACTIVATED PARTIAL THROMBOPLASTIN TIME IN PPP BY COAGULATION ASSAY 29.9 Seconds Normal 25.0-35.0 [facility] Comment on above: Performed By: #### L [id number] ####[facility] (BEAKER)[address] [place] [address] BASIC METABOLIC PANELon 03-28 Anion gap [Moles/Vol] 8 mmol/L Normal 7-20 [facility] Comment on above: Performed By: #### L [id number] ####[facility] (BEAKER)[address] [place] [address] Calcium [Mass/Vol] 9.5 mg/dL Normal 8.6-10.3 [facility] Comment on above: Performed By: #### L [id number] ####[facility] (BEAKER)[address] [place] [address] Chloride [Moles/Vol] 102 mmol/L Normal 98-107 [facility] Comment on above: Performed By: #### L [id number] ####[facility] (BEAKER)[address] [place] [address] CO2 [Moles/Vol] 28 mmol/L Normal 21-31 [facility] Comment on above: Performed By: #### L [id number] ####[facility] (BEAKER)[address] [place] [address] Creatinine [Mass/Vol] 0.80 mg/dL Normal 0.60-1.20 [facility] Comment on above: Performed By: #### L [id number] ####[facility] (BEAKER)[address] [place] [address] GLOMERULAR FILTRATION RATE ML/MIN/1.73 SQ M.PREDICTED 85.6 mL/min/1.73m*2 Normal >60.0 [facility] Comment on above: Result Comment: [facility]???s estimated glomerular filtration rate (eGFR) will no [...] of individuals. Performed By: #### L [id number] ####[facility] ([facility])[address] [place] [address] Glucose [Mass/Vol] 93 mg/dL Normal 70-100 [facility] Comment on above: Performed By: #### L [id number] ####[facility] ([facility])[address] [place] [address] Potassium [Moles/Vol] 4.6 mmol/L Normal 3.5-5.1 [facility] Comment on above: Performed By: #### L [id number] ####[facility] ([facility])[address] [place] [address] Sodium [Moles/Vol] 138 mmol/L Normal 136-145 [facility] Comment on above: Performed By: #### L [id number] ####[facility] ([facility])[address] [place] [address] Urea nitrogen [Mass/Vol] 12 mg/dL Normal 7-25 [facility] Comment on above: Performed By: #### L [id number] ####[facility] ([facility])[address] [place] [address] UREA NITROGEN/CREATININE (MASS RATIO) IN SER/PLAS 15.00 Normal [facility] Comment on above: Performed By: #### L [id number] ####[facility] ([facility])[address] [place] [address] CBC WITH AUTO DIFFERENTIALon 04-21-2022 Basophils (Bld) [#/Vol] 0.05 10*3/uL Normal 0.00-0.20 [facility] Comment on above: Performed By: #### L [id number] ####[facility] (BEAKER)[address] [place] [address] Basophils/100 WBC (Bld) 0.4 % Normal 0.0-1.0 [facility] Comment on above: Performed By: #### L [id number] ####[facility] (BEAKER)[address] [place] [address] Eosinophils (Bld) [#/Vol] 0.07 10*3/uL Normal 0.00-0.50 [facility] Comment on above: Performed By: #### L [id number] ####[facility] (BEAKER)[address] [place] [address] Eosinophils/100 WBC (Bld) 0.6 % Normal 0.0-6.0 [facility] Comment on above: Performed By: #### L [id number] ####[facility] (BEAKER)[address] [place] [address] ERYTHROCYTE DISTRIBUTION WIDTH (RATIO) STANDARD DEVIATION 48.5 Normal [facility] Comment on above: Performed By: #### L [id number] ####[facility] (BEAKER)[address] [place] [address] Erythrocyte distribution width (RBC) [Ratio] 14.4 % Normal 11.5-15.0 [facility] Comment on above: Performed By: #### L [id number] ####[facility] (BEAKER)[address] [place] [address] ERYTHROCYTE MEAN CORPUSCULAR HEMOGLOBIN CONCENTRATION (G/DL) BY AUTOMATED 33.1 g/dL Normal 32.0-35.0 [facility] Comment on above: Performed By: #### L [id number] ####[facility] (BEAKER)[address] [place] [address] Hematocrit (Bld) [Volume fraction] 44.4 % Normal 36.0-48.0 [facility] Comment on above: Performed By: #### L [id number] ####[facility] (BEAKER)[address] [place] [address] Hemoglobin (Bld) [Mass/Vol] 14.7 g/dL Normal 12.0-15.0 [facility] Comment on above: Performed By: #### L [id number] ####[facility] ([facility])[address] [place] [address] Immature granulocytes (Bld) [#/Vol] 0.04 10*3/uL Normal 0.00-0.20 [facility] Comment on above: Performed By: #### L [id number] ####[facility] ([facility])[address] [place] [address] Immature granulocytes/100 WBC (Bld) 0.4 % Normal 0.0-1.0 [facility] Comment on above: Performed By: #### L [id number] ####[facility] [place] [address] Lymphocytes (Bld) [#/Vol] 3.12 10*3/uL Normal 1.20-4.00 [facility] Comment on above: Performed By: #### L [id number] ####[facility] ([facility] [place] [address] Lymphocytes/100 WBC (Bld) 28.0 % Normal 20.0-45.0 [facility] Comment on above: Performed By: #### L [id number] ####[facility] (BEAKER)[address] [place] [address] MCH (RBC) [Entitic mass] 30.7 pg Normal 27.0-33.0 [facility] Comment on above: Performed By: #### L [id number] ####[facility] (BEAKER)[address] [place] [address] MCV (RBC) [Entitic vol] 92.7 fL Normal 82.0-98.0 [facility] Comment on above: Performed By: #### L [id number] ####[facility]OSP[facility] (BEAKER)[address] [place] [address] Monocytes (Bld) [#/Vol] 0.88 10*3/uL Normal 0.10-1.00 [facility] Comment on above: Performed By: #### L [id number] ####[facility] (BEAKER)[address] [place] [address] Monocytes/100 WBC (Bld) 7.9 % Normal 5.0-12.0 [facility] Comment on above: Performed By: #### L [id number] ####[facility] (BEAKER)[address] [place] [address] Neutrophils (Bld) [#/Vol] 7.00 10*3/uL Normal 1.60-7.60 [facility] Comment on above: Performed By: #### L [id number] ####[facility] (BEAKER)[address] [place] [address] Neutrophils/100 WBC (Bld) 62.7 % Normal 40.0-72.0 [facility] Comment on above: Performed By: #### L [id number] ####[facility] (BEAKER)[address] [place] [address] NRBC (PER 100 WBCS) BY AUTOMATED COUNT 0.0 % Normal 0.0-0.0 [facility] Comment on above: Performed By: #### L [id number] ####[facility] (BEAKER)[address] [place] [address] PLATELETS (10*3/UL) IN BLOOD AUTOMATED COUNT 371 10*3/uL Normal 150-400 [facility] Comment on above: Performed By: #### L [id number] ####[facility] (BEAKER)[address] [place] [address] RBC (Bld) [#/Vol] 4.79 10*6/uL Normal 3.80-5.00 [facility] Comment on above: Performed By: #### L [id number] ####[facility] (BEAKER)[address] [place] [address] WBC (Bld) [#/Vol] 11.16 10*3/uL High 4.00-10.60 [facility] Comment on above: Performed By: #### L [id number] ####[facility] ([place])[address] [place] [address] Consulton 04-21-2022 Consult [id number] Nato Short 1970 F Date Provider Department Center 04/21/2022 DILLAN CRANE MP ORTHO MPORTHO No family history on file Level of Service:28615 GA OFFICE/OUTPATIENT ESTABLISHED LOW MDM 20-29 MIN () Reason for Visit and Comments: Follow-up [[id number]] - Preop lumbar consent Normal [facility] HPon 04-21-2022 HP --- Attestation signed by [...] present from L4-L5 Outside MRI L-spine from [facility] performed 01/13/2022 was reviewed today and shows [...] an additional personal documentation from me. Normal [facility] MRSA/MSSA DNA NASALon 2021 MRSA DNA Negative Normal Negative, Invalid [facility] Comment on above: Performed By: #### L [id number] ####[facility] (BEAKER)[address] [place] [address] MSSA DNA Negative Normal Negative, Invalid [facility] Comment on above: Performed By: #### L [id number] ####[facility] (BEAKER)[address] [place] [address] PROTIME-INRon 04-21-2022 INR IN PPP BY COAGULATION ASSAY 0.99 Normal 0.90-1.10 [facility] Comment on above: Result Comment: ACCC P [...] CHEST 1995;108:[id number]. Performed By: #### L [id number] ####[facility] ([place])[address] [place] [address] PROTHROMBIN TIME (PT) IN PPP BY COAGULATION ASSAY 13.1 Seconds Normal 12.3-14.8 [facility] Comment on above: Performed By: #### L [id number] ####[facility] ([place])[address] [place] [address] TYPE AND SCREENon 04-21-2022 AB SCREEN Negative Normal [facility] Comment on above: Order Comment: Type and cross x 2 units Performed By: #### L [id number] ####[facility], ABO group Nom (Bld) A Normal [facility] Comment on above: Order Comment: Type and cross x 2 units Performed By: #### L [id number] ####[facility], RH TYPE IN BLOOD Positive Normal [facility] Comment on above: Order Comment: Type and cross x 2 units Performed By: #### L [id number] ####[facility], URINALYSISon 04-21-2022 BILIRUBIN, TOTAL PRESENCE IN URINE Negative Normal Negative [facility] Comment on above: Order Comment: 0000 Performed By: #### L [id number] ####[facility] ([place])[address] [place] [address] Clarity (U) Clear Normal Clear [facility] Comment on above: Order Comment: 0000 Performed By: #### L [id number] ####[facility] (BEAKER)[address] [place] [address] Color (U) Yellow Normal Yellow, Dark Yellow, Straw [facility] Comment on above: Order Comment: 0000 Performed By: #### L [id number] ####[facility] (BEAKER)[address] [place] [address] Glucose (U) [Mass/Vol] Negative Normal Negative [facility] Comment on above: Order Comment: 0000 Performed By: #### L [id number] ####[facility] (BEAKER)[address] [place] [address] HEMOGLOBIN PRESENCE IN URINE Negative Normal Negative [facility] Comment on above: Order Comment: 0000 Performed By: #### L [id number] ####[facility] ([facility] [place] [address] Ketones Ql (U) Trace Abnormal Negative [facility] Comment on above: Order Comment: 0000 Performed By: #### L [id number] ####[facility] ([facility] [place] [address] LEUKOCYTE ESTERASE PRESENCE IN URINE BY TEST STRIP Negative Normal Negative [facility] Comment on above: Order Comment: 0000 Performed By: #### L [id number] ####[facility] (BEAKER)[address] [place] [address] NITRITE PRESENCE IN URINE Negative Normal Negative [facility] Comment on above: Order Comment: 0000 Performed By: #### L [id number] ####[facility] (BEAKER)[address] [place] [address] pH (U) 6.0 [pH] Normal 5.0-8.0 [facility] Comment on above: Order Comment: 0000 Performed By: #### L [id number] ####[facility] (BEAKER)[address] [place] [address] Protein (U) [Mass/Vol] Negative Normal Negative [facility] Comment on above: Order Comment: 0000 Performed By: #### L [id number] ####[facility] (BEAKER)[address] [place] [address] Specific gravity (U) [Rel density] 1.020 Normal 1.015-1.020 [facility] Comment on above: Order Comment: 0000 Performed By: #### L [id number] ####[facility] (BEAKER)[address] [place] [address] UROBILINOGEN (EU/DL) IN URINE 0.2 EU/dL Normal Negative [facility] Comment on above: Order Comment: 0000 Performed By: #### L [id number] ####[facility] (BEAKER)[address] [place] [address] 36on 04-19-2022 36 Please advise refill request. Normal [facility] Refillon 04-19-2022 Refill [id number] Nato Short 1970 F Date Provider Department Center 04/19/2022 DILLAN CRANE ORTHO MPORTHO No family history on file Reason for Visit and Comments: Med Refill [[id number]] Normal [facility] CBC AUTO DIFFon 04-16-2022 BASO # 0.1 103/ul Normal 0.0-0.[address] [facility] Comment on above: Performed By: #### C BC #### [facility] [address] [place] [address] Dr. Radha Suarez Basophils/100 WBC (Bld) 0.8 % Normal 0.2-2.[address] [facility] Comment on above: Performed By: #### C BC #### [facility] [address] [address] [address] Radha Suarez EO # 0.1 103/ul Normal 0.0-0.[address] [facility] Comment on above: Performed By: #### C BC #### [facility] [address] [address] [address] Radha Suarez Eosinophils/100 WBC (Bld) 0.8 % Critically low 0.9-7.[address] [facility] Comment on above: Performed By: #### C BC #### [facility] [address] [place] [address] Dr. Radha Suarez Erythrocyte distribution width (RBC) [Ratio] 14.3 % Normal 11.0-15.[address] [facility] Comment on above: Performed By: #### C BC #### [facility] [address] [place] [address] Dr. Radha Suarez Hematocrit (Bld) [Volume fraction] 44.4 % Normal 36.0-48.[address] [facility] Comment on above: Performed By: #### C BC #### [facility] [address] [place] [address] Dr. Radha Suarez Hemoglobin (Bld) [Mass/Vol] 14.6 g/dL Normal 12.0-16.[address] [facility] Comment on above: Performed By: #### C BC #### [facility] [address] [place] [address] Dr. Radha Suarez IG # 0.02 10e3/ul Normal 0.00-0.[address] [facility] Comment on above: Performed By: #### C BC #### [facility] [address] [place] [address] Dr. Radha Suarez IG % 0.3 % Normal 0.0-0.[address] [facility] Comment on above: Performed By: #### C BC #### [facility] [address] [place] [address] Dr. Radha Suarez LYMPH # 2.4 103/ul Normal 1.2-3.[address] [facility] Comment on above: Performed By: #### C BC #### [facility] [address] [place] [address] Dr. Radha Suarez Lymphocytes/100 WBC (Bld) 31.6 % Normal 20.5-60.[address] [facility] Comment on above: Performed By: #### C BC #### [facility] [address] [place] [address] Dr. Radha Suarez MANUAL DIFF REQ NO Normal [facility] Comment on above: Performed By: #### C BC #### [facility] [address] [place] [address] Dr. Radha Suarez MCH (RBC) [Entitic mass] 30.5 pg Normal 26.7-34.[address] [facility] Comment on above: Performed By: #### C BC #### [facility] [address] [place] [address] Dr. Radha Suarez MCHC (RBC) [Mass/Vol] 32.9 g/dL Normal 29.9-35.[address] [facility] Comment on above: Performed By: #### C BC #### [facility] [address] [place] [address] Dr. Radha Suarez MCV (RBC) [Entitic vol] 92.9 fL Normal 81.0-99.[address] [facility] Comment on above: Performed By: #### C BC #### [facility] [address] [place] [address] Dr. Radha Suarez MONO # 0.6 103/ul Normal 0.3-0.[address] [facility] Comment on above: Performed By: #### C BC #### [facility] [address] [place] [address] Dr. Radha Suarez Monocytes/100 WBC (Bld) 7.8 % Normal 1.7-12.[address] [facility] Comment on above: Performed By: #### C BC #### [facility] [address] [place] [address] Dr. Radha Suarez NEUT # 4.5 103/ul Normal 1.4-6.[address] [facility] Comment on above: Performed By: #### C BC #### [facility] [address] [place] [address] Dr. Radha Suarez Neutrophils/100 WBC (Bld) 58.7 % Normal 43.0-75.[address] [facility] Comment on above: Performed By: #### C BC #### [facility] [address] [place] [address] Dr. Radha Suarez Platelet mean volume (Bld) [Entitic vol] 9.1 fL Critically low 9.5-13.[address] [facility] Comment on above: Performed By: #### C BC #### [facility] [address] [place] [address] Dr. Radha Suarez PLT 346 103/ul Normal 150-[address] [facility] Comment on above: Performed By: #### C BC #### [facility] [address] [place] [address] Dr. Radha Suarez RBC 4.78 106/ul Normal 4.20-5.[address] [facility] Comment on above: Performed By: #### C BC #### [facility] [address] [place] [address] Dr. Radha Suarez WBC 7.6 103/ul Normal 4.0-11.[address] [facility] Comment on above: Performed By: #### C BC #### [facility] [address] [place] [address] Dr. Radha Suarez FREE T3on 04-16-2022 FREE T3 2.50 pg/mlL Normal 2.18-3.[address] [facility] Comment on above: Performed By: #### C BC #### [facility] [address] [place] [address] Dr. Radha Suarez FREE T4on 04-16-2022 Free T4 [Mass/Vol] 1.33 ng/dL Normal 0.76-1.46 [facility] Comment on above: Performed By: #### F T4 #### [facility] [address] [place] [address] Dr. Radha Suarez PROF CHEM 8 (BAS METB)on Anion gap [Moles/Vol] 8.7 mmol/L Normal [facility] Comment on above: Performed By: #### C BC #### [facility] [address] [place] [address] Dr. Radha Suarez Calcium [Mass/Vol] 9.4 mg/dL Normal 8.5-10.1 [facility] Comment on above: Performed By: #### C BC #### [facility] [address] [place] [address] Dr. Radha Suarez Chloride [Moles/Vol] 101 mmol/L Normal 98-[address] [facility] Comment on above: Performed By: #### C BC #### [facility] [address] [address] [address] Radha Suarez CO2 [Moles/Vol] 30.5 mmol/L Normal 21.0-32.0 [facility] Comment on above: Performed By: #### C BC #### [facility] [address] [place] [address] Dr. Radha Suarez Creatinine [Mass/Vol] 0.72 mg/dL Normal 0.55-1.[address] [facility] Comment on above: Performed By: #### C BC #### [facility] [address] [place] [address] Dr. Radha Suarez EGFR-AF BRUNEIAN >60 Normal >=60 [facility] Comment on above: Performed By: #### C BC #### [facility] [address] [place] [address] Dr. Radha Suarez EGFR-NON AF BRUNEIAN >60 Normal >=[address] [facility] Comment on above: Performed By: #### C BC #### [facility] [address] [place] [address] Dr. Radha Suarez Glucose [Mass/Vol] 99 mg/dL Normal 74-106 [facility] Comment on above: Performed By: #### C BC #### [facility] [address] [place] [address] Dr. Radha Suarez Potassium [Moles/Vol] 4.2 mmol/L Normal 3.5-5.[address] [facility] Comment on above: Performed By: #### C BC #### [facility] [address] [place] [address] Dr. Radha Suarez Sodium [Moles/Vol] 136 mmol/L Normal 136-145 [facility] Comment on above: Performed By: #### C BC #### [facility] [address] [place] [address] Dr. Radha Suarez Urea nitrogen [Mass/Vol] 12.0 mg/dL Normal 7.0-18.[address] [facility] Comment on above: Performed By: #### C BC #### [facility] [address] [place] [address] Dr. Radha Suarez Urea nitrogen/Creatinine [Mass ratio] 16.7 mg/mg Normal [facility] Comment on above: Performed By: #### C BC #### [facility] [address] [place] [address] Dr. Radha Suarez PROTIMEon 04-16-2022 INR Coag (PPP) [Relative time] 0.98 {INR} Normal [facility] Comment on above: Performed By: #### P TT, PT #### [facility] [address] [place] [address] Dr. Radha Suarez INR GUIDELINES SEE BELOW Normal [facility] Comment on above: Result Comment: DEVI RED INR: 2.0 - 3.0 CONDITIONS NOT LISTED BELOW 2.5 - 3.5 FOR PROSTHETIC HEART VALVE REPLACEMENT 2.5 - 3.5 RECURRENT THROMBOSIS Performed By: #### P TT, PT #### [facility] [address] [place] [address] Dr. Radha Suarez PT Coag (PPP) [Time] 10.6 s Normal 9.0-11.6 [facility] Comment on above: Performed By: #### P TT, PT #### [facility] [address] [place] [address] Dr. Radha Suarez PTTon 04-16-2022 aPTT Coag (Bld) [Time] 27.9 s Normal 22.3-36.[address] [facility] Comment on above: Performed By: #### P TT, PT #### [facility] [address] [place] [address] Dr. Radha Suarez TSHon 04-16-2022 TSH 0.206 uIU/mL Critically low 0.358-3.740 [facility] Comment on above: Performed By: #### C BC #### [facility] [address] [place] [address] Dr. Radha Suarez 29on 04-13-2022 29 Addended by: ORA PEREZ on: 04/28/2022 07:39 AM Modules accepted: Orders, SmartSet Normal [facility] Prep for Procedureon 022 Prep for Procedure [id number] Nato Short 1970 F Date Provider Department Center 04/13/2022 ORA ARIAS ORTHO MPORTHO Chart Close Cosign Accepted by: DILLAN NEWBY[[id number]] Chart Close Cosign Accepted on: TueApr 13, 2022 4:43 PM No family history on file Normal [facility] Office Visiton 04-07-2022 Follow-up visit [id number] PhilipAr neumanna 1970 F Date Provider Department [place] 04/07/2022 DILLAN CRANE [facility] MPORTHO No family history on file Level of Service:14778 [place] OFFICE/OUTPATIENT ESTABLISHED LOW MDM 20-29 MIN (57,GC) Reason for Visit and Comments: Pain [136] - MRI results Normal [facility] 29on 03-24-2022 29 Addended by: ORA TIPTON on: 03/30/2022 11:29 AM Modules accepted: Orders Normal [facility] Office Visiton 03-24-2022 Follow-up visit [id number] Nato Short 1970 F Date Provider Department [place] 03/24/2022 DILLAN CRANE [facility] MPORTHO No family history on file Level of Service:77359 [place] OFFICE/OUTPATIENT ESTABLISHED LOW MDM 20-29 MIN Reason for Visit and Comments: Pain [136] Follow-up [888181] Normal [facility] FREE T4on 03-08-2022 Free T4 [Mass/Vol] 1.59 ng/dL Critically high 0.76-1.46 [facility] Comment on above: Performed By: #### C VDTB #### [facility] [address] [address] [address] Radha Suarez TSHon 03-08-2022 TSH 0.107 uIU/mL Critically low 0.358-3.740 [facility] Comment on above: Performed By: #### C VDTBH #### [facility] [address] [address] [address] Radha Suarez LUMBAR SPINE 4 OR 5 VWSon LUMBAR SPINE 4 OR 5 S [facility] Department of Radiology [address] [place] [id number] ===== Patient Name: NATO SHORT : 1970 Sex: F Age: Race: White Pt. Location: 84 Patient Status: D Ordered Date: 03/03/2022 2:10:00 [...] report. Electronically signed: Anjum Quevedo. Transcribed by: [email or web address], User Resident: ANJUM CLIFTON Electronically Signed by: ANJUM QUEVEDO @ 03/04/2022 09:13 AM I personally read this/these film(s) with this resident Normal [facility] Comment on above: Order Comment: Evalu ate CBC AUTO DIFFon 02-04-2022 BASO # 0.0 103/ul Normal 0.0-0.[address] [facility] Comment on above: Performed By: #### C BC #### [facility] [address] [place] [address] Dr. Radha Suarez Basophils/100 WBC (Bld) 0.1 % Critically low 0.2-2.[address] [facility] Comment on above: Performed By: #### C BC #### [facility] [address] [place] [address] Dr. Radha Suarez EO # 0.0 103/ul Normal 0.0-0.[address] [facility] Comment on above: Performed By: #### C BC #### [facility] [address] [place] [address] Dr. Radha Suarez Eosinophils/100 WBC (Bld) 0.1 % Critically low 0.9-7.[address] [facility] Comment on above: Performed By: #### C BC #### [facility] [address] [place] [address] Dr. Radha Suarez Erythrocyte distribution width (RBC) [Ratio] 14.4 % Normal 11.0-15.[address] [facility] Comment on above: Performed By: #### C BC #### [facility] [address] [place] [address] Dr. Radha Suarez Hematocrit (Bld) [Volume fraction] 41.1 % Normal 36.0-48.[address] [facility] Comment on above: Performed By: #### C BC #### [facility] [address] [place] [address] Dr. Radha Suarez Hemoglobin (Bld) [Mass/Vol] 13.3 g/dL Normal 12.0-16.[address] [facility] Comment on above: Performed By: #### C BC #### [facility] [address] [place] [address] Dr. Radha Suarez IG # 0.09 10e3/ul Critically high 0.00-0.03 [facility] Comment on above: Performed By: #### C BC #### [facility] [address] [place] [address] Dr. Radah Suarez IG % 0.6 % Critically high 0.0-0.5 [facility] Comment on above: Performed By: #### C BC #### [facility] [address] [place] [address] Dr. Radha Suarez LYMPH # 1.1 103/ul Critically low 1.2-3.8 [facility] Comment on above: Performed By: #### C BC #### [facility] [address] [place] [address] Dr. Radha Suarez Lymphocytes/100 WBC (Bld) 7.6 % Critically low 20.5-60.[address] [facility] Comment on above: Performed By: #### C BC #### [facility] [address] [place] [address] Dr. Radha Suarez MANUAL DIFF REQ NO Normal [facility] Comment on above: Performed By: #### C BC #### [facility] [address] [place] [address] Dr. Radha Suarez MCH (RBC) [Entitic mass] 30.5 pg Normal 26.7-34.[address] [facility] Comment on above: Performed By: #### C BC #### [facility] [address] [place] [address] Dr. Radha Suarez MCHC (RBC) [Mass/Vol] 32.4 g/dL Normal 29.9-35.[address] [facility] Comment on above: Performed By: #### C BC #### [facility] [address] [place] [address] Dr. Radha Suarez MCV (RBC) [Entitic vol] 94.3 fL Normal 81.0-99.[address] [facility] Comment on above: Performed By: #### C BC #### [facility] [address] [place] [address] Dr. Radha Suarez MONO # 0.4 103/ul Normal 0.3-0.[address] [facility] Comment on above: Performed By: #### C BC #### [facility] [address] [place] [address] Dr. Radha Suarez Monocytes/100 WBC (Bld) 2.4 % Normal 1.7-12.[address] [facility] Comment on above: Performed By: #### C BC #### [facility] [address] [place] [address] Dr. Radha Suarez NEUT # 13.2 103/ul Critically high 1.4-6.5 [facility] Comment on above: Performed By: #### C BC #### [facility] [address] [place] [address] Dr. Radha Suarez Neutrophils/100 WBC (Bld) 89.2 % Critically high 43.0-75.[address] [facility] Comment on above: Performed By: #### C BC #### [facility] [address] [place] [address] Dr. Radha Suarez Platelet mean volume (Bld) [Entitic vol] 9.3 fL Critically low 9.5-13.[address] [facility] Comment on above: Performed By: #### C BC #### [facility] [address] [place] [address] Dr. Radha Suarez PLT 358 103/ul Normal 150-[address] [facility] Comment on above: Performed By: #### C BC #### [facility] [address] [place] [address] Dr. Radha Suarez RBC 4.36 106/ul Normal 4.20-5.[address] [facility] Comment on above: Performed By: #### C BC #### [facility] [address] [place] [address] Dr. Radha Suarez WBC 14.8 103/ul Critically high 4.0-11.0 [facility] Comment on above: Performed By: #### C BC #### [facility] [address] [address] [address] Radha Suarez PROF CHEM 8 (BAS METB)on Anion gap [Moles/Vol] 10.7 mmol/L Normal [facility] Comment on above: Performed By: #### B MP #### [facility] [address] [address] [address] Radha Suarez Calcium [Mass/Vol] 8.6 mg/dL Normal 8.5-10.1 [facility] Comment on above: Performed By: #### B MP #### [facility] [address] [place] [address] Dr. Radha Suarez Chloride [Moles/Vol] 103 mmol/L Normal 98-[address] [facility] Comment on above: Performed By: #### B MP #### [facility] [address] [place] [address] Dr. Radha Suarez CO2 [Moles/Vol] 27.2 mmol/L Normal 21.0-32.0 [facility] Comment on above: Performed By: #### B MP #### [facility] [address] [place] [address] Dr. Radha Suarez Creatinine [Mass/Vol] 0.82 mg/dL Normal 0.55-1.[address] [facility] Comment on above: Performed By: #### B MP #### [facility] [address] [place] [address] Dr. Radha Suarez EGFR-AF BRUNEIAN >60 Normal >=60 [facility] Comment on above: Performed By: #### B MP #### [facility] [address] [address] [address] Radha Suarez EGFR-NON AF BRUNEIAN >60 Normal >=[address] [facility] Comment on above: Performed By: #### B MP #### [facility] [address] [place] [address] Dr. Radha Suarez Glucose [Mass/Vol] 158 mg/dL Critically high 74-106 [facility] Comment on above: Performed By: #### B MP #### [facility] [address] [address] [address] Radha Suarez Potassium [Moles/Vol] 3.9 mmol/L Normal 3.5-5.[address] [facility] Comment on above: Performed By: #### B MP #### [facility] [address] [address] [address] Radha Suarez Sodium [Moles/Vol] 137 mmol/L Normal 136-145 [facility] Comment on above: Performed By: #### B MP #### [facility] [address] [place] [address] Dr. Radha Suarez Urea nitrogen [Mass/Vol] 16.0 mg/dL Normal 7.0-18.[address] [facility] Comment on above: Performed By: #### B MP #### [facility] [address] [place] [address] Dr. Radha Suarez Urea nitrogen/Creatinine [Mass ratio] 19.5 mg/mg Normal [facility] Comment on above: Performed By: #### B MP #### [facility] [address] [place] [address] Dr. Radha Suarez CBC AUTO DIFFon 02-03-2022 BASO # 0.0 103/ul Normal 0.0-0.[address] [facility] Comment on above: Performed By: #### C VDTBH #### [facility] [address] [place] [address] Dr. Radha Suarez Basophils/100 WBC (Bld) 0.3 % Normal 0.2-2.[address] [facility] Comment on above: Performed By: #### C VDTBH #### [facility] [address] [place] [address] Dr. Radha Suarez EO # 0.0 103/ul Normal 0.0-0.[address] [facility] Comment on above: Performed By: #### C VDTBH #### [facility] [address] [place] [address] Dr. Radha Suarez Eosinophils/100 WBC (Bld) 0.0 % Critically low 0.9-7.[address] [facility] Comment on above: Performed By: #### C VDTBH #### [facility] [address] [place] [address] Dr. Radha Suarez Erythrocyte distribution width (RBC) [Ratio] 14.2 % Normal 11.0-15.[address] [facility] Comment on above: Performed By: #### C VDTBH #### [facility] [address] [place] [address] Dr. Radha Suarez Hematocrit (Bld) [Volume fraction] 43.2 % Normal 36.0-48.[address] [facility] Comment on above: Performed By: #### C VDTBH #### [facility] [address] [place] [address] Dr. Radha Suarez Hemoglobin (Bld) [Mass/Vol] 13.8 g/dL Normal 12.0-16.[address] [facility] Comment on above: Performed By: #### C VDTBH #### [facility] [address] [place] [address] Dr. Radha Suarez IG # 0.02 10e3/ul Normal 0.00-0.[address] [facility] Comment on above: Performed By: #### C VDTBH #### [facility] [address] [place] [address] Dr. Radha Suarez IG % 0.3 % Normal 0.0-0.[address] [facility] Comment on above: Performed By: #### C VDTBH #### [facility] [address] [place] [address] Dr. Radha Suarez LYMPH # 0.7 103/ul Critically low 1.2-3.8 [facility] Comment on above: Performed By: #### C VDTBH #### [facility] [address] [place] [address] Dr. Radha Suarez Lymphocytes/100 WBC (Bld) 9.8 % Critically low 20.5-60.[address] [facility] Comment on above: Performed By: #### C VDTBH #### [facility] [address] [place] [address] Dr. Radha Suarez MANUAL DIFF REQ NO Normal [facility] Comment on above: Performed By: #### C VDTBH #### [facility] [address] [place] [address] Dr. Radha Suarez MCH (RBC) [Entitic mass] 29.8 pg Normal 26.7-34.[address] [facility] Comment on above: Performed By: #### C VDTBH #### [facility] [address] [place] [address] Dr. Radha Suarez MCHC (RBC) [Mass/Vol] 31.9 g/dL Normal 29.9-35.[address] [facility] Comment on above: Performed By: #### C VDTBH #### [facility] [address] [place] [address] Dr. Radha Suarez MCV (RBC) [Entitic vol] 93.3 fL Normal 81.0-99.[address] [facility] Comment on above: Performed By: #### C VDTBH #### [facility] [address] [place] [address] Dr. Radha Suarez MONO # 0.1 103/ul Critically low 0.3-0.8 [facility] Comment on above: Performed By: #### C VDTBH #### [facility] [address] [place] [address] Dr. Radha Suarez Monocytes/100 WBC (Bld) 0.8 % Critically low 1.7-12.[address] [facility] Comment on above: Performed By: #### C VDTBH #### [facility] [address] [place] [address] Dr. Radha Suarez NEUT # 6.6 103/ul Critically high 1.4-6.5 [facility] Comment on above: Performed By: #### C VDTBH #### [facility] [address] [place] [address] Dr. Radha Suarez Neutrophils/100 WBC (Bld) 88.8 % Critically high 43.0-75.[address] [facility] Comment on above: Performed By: #### C VDTBH #### [facility] [address] [place] [address] Dr. Radha Suarez Platelet mean volume (Bld) [Entitic vol] 9.2 fL Critically low 9.5-13.[address] [facility] Comment on above: Performed By: #### C VDTBH #### [facility] [address] [place] [address] Dr. Radha Suarez PLT 368 103/ul Normal 150-[address] [facility] Comment on above: Performed By: #### C VDTBH #### [facility] [address] [place] [address] Dr. Radha Suarez RBC 4.63 106/ul Normal 4.20-5.[address] [facility] Comment on above: Performed By: #### C VDTBH #### [facility] [address] [place] [address] Dr. Radha Suarez WBC 7.4 103/ul Normal 4.0-11.[address] [facility] Comment on above: Performed By: #### C VDTBH #### [facility] [address] [place] [address] Dr. Radha Suarez BASO # 0.0 103/ul Normal 0.0-0.[address] [facility] Comment on above: Performed By: #### C BC #### [facility] [address] [place] [address] Dr. Radha Suarez Basophils/100 WBC (Bld) 0.2 % Normal 0.2-2.[address] [facility] Comment on above: Performed By: #### C BC #### [facility] [address] [place] [address] Dr. Radha Suarez EO # 0.0 103/ul Normal 0.0-0.[address] [facility] Comment on above: Performed By: #### C BC #### [facility] [address] [place] [address] Dr. Radha Suarez Eosinophils/100 WBC (Bld) 0.2 % Critically low 0.9-7.[address] [facility] Comment on above: Performed By: #### C BC #### [facility] [address] [place] [address] Dr. Radha Suarez Erythrocyte distribution width (RBC) [Ratio] 14.3 % Normal 11.0-15.[address] [facility] Comment on above: Performed By: #### C BC #### [facility] [address] [place] [address] Dr. Radha Suarez Hematocrit (Bld) [Volume fraction] 46.6 % Normal 36.0-48.[address] [facility] Comment on above: Performed By: #### C BC #### [facility] [address] [place] [address] Dr. Radha Suarez Hemoglobin (Bld) [Mass/Vol] 15.5 g/dL Normal 12.0-16.[address] [facility] Comment on above: Performed By: #### C BC #### [facility] [address] [place] [address] Dr. Radha Suarez IG # 0.06 10e3/ul Critically high 0.00-0.03 [facility] Comment on above: Performed By: #### C BC #### [facility] [address] [place] [address] Dr. Radha Suarez IG % 0.5 % Normal 0.0-0.[address] [facility] Comment on above: Performed By: #### C BC #### [facility] [address] [place] [address] Dr. Radha Suarez LYMPH # 0.9 103/ul Critically low 1.2-3.8 [facility] Comment on above: Performed By: #### C BC #### [facility] [address] [place] [address] Dr. Radha Suarez Lymphocytes/100 WBC (Bld) 7.2 % Critically low 20.5-60.[address] [facility] Comment on above: Performed By: #### C BC #### [facility] [address] [place] [address] Dr. Radha Suarez MANUAL DIFF REQ NO Normal [facility] Comment on above: Performed By: #### C BC #### [facility] [address] [place] [address] Dr. Radha Suarez MCH (RBC) [Entitic mass] 30.7 pg Normal 26.7-34.[address] [facility] Comment on above: Performed By: #### C BC #### [facility] [address] [place] [address] Dr. Radha Suarez MCHC (RBC) [Mass/Vol] 33.3 g/dL Normal 29.9-35.[address] [facility] Comment on above: Performed By: #### C BC #### [facility] [address] [place] [address] Dr. Radha Suarez MCV (RBC) [Entitic vol] 92.3 fL Normal 81.0-99.[address] [facility] Comment on above: Performed By: #### C BC #### [facility] [address] [place] [address] Dr. Radha Suarez MONO # 0.1 103/ul Critically low 0.3-0.8 [facility] Comment on above: Performed By: #### C BC #### [facility] [address] [place] [address] Dr. Radha Suarez Monocytes/100 WBC (Bld) 0.7 % Critically low 1.7-12.[address] [facility] Comment on above: Performed By: #### C BC #### [facility] [address] [place] [address] Dr. Radha Suarez NEUT # 11.7 103/ul Critically high 1.4-6.5 [facility] Comment on above: Performed By: #### C BC #### [facility] [address] [place] [address] Dr. Radha Suarez Neutrophils/100 WBC (Bld) 91.2 % Critically high 43.0-75.[address] [facility] Comment on above: Performed By: #### C BC #### [facility] [address] [place] [address] Dr. Radha Suarez Platelet mean volume (Bld) [Entitic vol] 9.1 fL Critically low 9.5-13.[address] [facility] Comment on above: Performed By: #### C BC #### [facility] [address] [place] [address] Dr. Radha Suarez PLT 394 103/ul Normal 150-[address] [facility] Comment on above: Performed By: #### C BC #### [facility] [address] [place], [place] [address] Dr. Radha Suarez RBC 5.05 106/ul Normal 4.20-5.[address] [facility] Comment on above: Performed By: #### C BC #### [facility] [address] [place], [place] [address] Dr. Radha Suarez WBC 12.8 103/ul Critically high 4.0-11.0 [facility] Comment on above: Performed By: #### C BC #### [facility] [address] [place], [place] [address] LSPINE WO CONon [...] NAOMIE THEODORE Date: 2022-02-03 09:[address] [facility] PROF 14(COMP METB)on 022 Albumin [Mass/Vol] 3.9 g/dL Normal 3.4-5.0 [facility] Comment on above: Performed By: #### C VDTBH #### [facility] [address] [address] [address] Radha Suarez Albumin/Globulin [Mass ratio] 1.0 {ratio} Normal [facility] Comment on above: Performed By: #### C VDTBH #### [facility] [address] [address] [address] Radha Suarez ALP [Catalytic activity/Vol] 117 U/L Critically high 46-[address] [facility] Comment on above: Performed By: #### C VDTBH #### [facility] [address] [place] [address] Dr. Radha Suarez ALT [Catalytic activity/Vol] 42 U/L Normal 14-[address] [facility] Comment on above: Performed By: #### C VDTBH #### [facility] [address] [address] [address] Radha Suarez Anion gap [Moles/Vol] 16.0 mmol/L Normal [facility] Comment on above: Performed By: #### C VDTBH #### [facility] [address] [place] [address] Dr. Rdaha Suarez AST [Catalytic activity/Vol] 25 U/L Normal 15-[address] [facility] Comment on above: Performed By: #### C VDTBH #### [facility] [address] [address] [address] Radha Suarez Bilirubin [Mass/Vol] 0.2 mg/dL Normal 0.2-1.[address] [facility] Comment on above: Performed By: #### C VDTBH #### [facility] [address] [address] [address] Radha Suarez Calcium [Mass/Vol] 9.6 mg/dL Normal 8.5-10.1 [facility] Comment on above: Performed By: #### C VDTBH #### [facility] [address] [address] [address] Radha Suarez Chloride [Moles/Vol] 104 mmol/L Normal 98-[address] [facility] Comment on above: Performed By: #### C VDTBH #### [facility] [address] [place] [address] Dr. Radha Suarez CO2 [Moles/Vol] 26.0 mmol/L Normal 21.0-32.0 [facility] Comment on above: Performed By: #### C VDTBH #### [facility] [address] [place] [address] Dr. Radha Suarez Creatinine [Mass/Vol] 0.82 mg/dL Normal 0.55-1.[address] [facility] Comment on above: Performed By: #### C VDTBH #### [facility] [address] [place] [address] Dr. Radha Suarez EGFR-AF BRUNEIAN >60 Normal >=60 [facility] Comment on above: Performed By: #### C VDTBH #### [facility] [address] [place] [address] Dr. Radha Suarez EGFR-NON AF BRUNEIAN >60 Normal >=[address] [facility] Comment on above: Performed By: #### C VDTBH #### [facility] [address] [place] [address] Dr. Radha Suarez Globulin (S) [Mass/Vol] 3.8 g/dL Normal [facility] Comment on above: Performed By: #### C VDTBH #### [facility] [address] [address] [address] Radha Suarez Glucose [Mass/Vol] 153 mg/dL Critically high 74-106 [facility] Comment on above: Performed By: #### C VDTBH #### [facility] [address] [place] [address] Dr. Radha Suarez Potassium [Moles/Vol] 4.0 mmol/L Normal 3.5-5.[address] [facility] Comment on above: Performed By: #### C VDTBH #### [facility] [address] [place] [address] Dr. Radha Suarez Protein [Mass/Vol] 7.7 g/dL Normal 6.4-8.2 [facility] Comment on above: Performed By: #### C VDTBH #### [facility] [address] [place] [address] Dr. Radha Suarez Sodium [Moles/Vol] 142 mmol/L Normal 136-145 [facility] Comment on above: Performed By: #### C VDTBH #### [facility] [address] [place] [address] Dr. Radha Suarez Urea nitrogen [Mass/Vol] 10.0 mg/dL Normal 7.0-18.[address] [facility] Comment on above: Performed By: #### C VDTBH #### [facility] [address] [place] [address] Dr. Radha Suarez Urea nitrogen/Creatinine [Mass ratio] 12.2 mg/mg Normal [facility] Comment on above: Performed By: #### C VDTBH #### [facility] [address] [place] [address] Dr. Radha Suarez PROF CHEM 8 (BAS METB)on Anion gap [Moles/Vol] 14.9 mmol/L Normal [facility] Comment on above: Performed By: #### C VDTBH #### [facility] [address] [place] [address] Dr. Radha Suarez Calcium [Mass/Vol] 9.3 mg/dL Normal 8.5-10.1 [facility] Comment on above: Result Comment: resu lt to follow Previously reported as: 9.1 On 02/03/2022 09:13 By [email or web address] Performed By: #### C VDTBH #### [facility] [address] [place] [address] Dr. Radha Suarez Chloride [Moles/Vol] 104 mmol/L Normal 98-[address] [facility] Comment on above: Performed By: #### C VDTBH #### [facility] [address] [place] [address] Dr. Radha Suarez CO2 [Moles/Vol] 25.7 mmol/L Normal 21.0-32.0 [facility] Comment on above: Performed By: #### C VDTBH #### [facility] [address] [address] [address] Radha Suarez Creatinine [Mass/Vol] 0.93 mg/dL Normal 0.55-1.[address] [facility] Comment on above: Performed By: #### C VDTBH #### [facility] [address] [address] [address] Radha Suarez EGFR-AF BRUNEIAN >60 Normal >=60 [facility] Comment on above: Performed By: #### C VDTBH #### [facility] [address] [address] [address] Radha Suarez EGFR-NON AF BRUNEIAN >60 Normal >=[address] [facility] Comment on above: Performed By: #### C VDTBH #### [facility] [address] [address] [address] Radha Suarez Glucose [Mass/Vol] 173 mg/dL Critically high 74-106 [facility] Comment on above: Performed By: #### C VDTBH #### [facility] [address] [address] [address] Radha Suarez Potassium [Moles/Vol] 3.6 mmol/L Normal 3.5-5.[address] [facility] Comment on above: Performed By: #### C VDTBH #### [facility] [address] [address] [address] Radha Suarez Sodium [Moles/Vol] 141 mmol/L Normal 136-145 [facility] Comment on above: Performed By: #### C VDTBH #### [facility] [address] [address] [address] Radha Suarez Urea nitrogen [Mass/Vol] 12.0 mg/dL Normal 7.0-18.[address] [facility] Comment on above: Performed By: #### C VDTBH #### [facility] [address] [address] [address] Radha Suarez Urea nitrogen/Creatinine [Mass ratio] 12.9 mg/mg Normal [facility] Comment on above: Performed By: #### C VDTBH #### [facility] [address] [place] [address] Dr. Radha Suarez XR CHEST 1 Von [...] NAOMIE VELASQUEZ Date: 2022-02-02 22:[address] [facility] Covid-19 PCR ([facility])on SARS-CoV-2 (COVID-19) RNA RENÉ+probe Ql (Unsp spec) Not detected Normal NOT DETECTED [facility] Comment on above: Result Comment: When diagnostic [...] for this test is supported by the Marketing Research Analyst of Health and Human Service's declaration that [...] used). Performed By: #### C BC #### [facility] [address] [place] [address] Dr. Radha Suarez BNPon 01-14-2022 Natriuretic peptide B (Bld) [Mass/Vol] 86.0 pg/mL Normal <=900.[address] [facility] Comment on above: Performed By: #### B TELE[employer] NETWORK MANAGER, CMP #### [facility] [address] [place] [address] Dr. Radha Suarez CBC AUTO DIFFon 01-14-2022 BASO # 0.1 103/ul Normal 0.0-0.[address] [facility] Comment on above: Performed By: #### C VDTBH #### [facility] [address] [place] [address] Dr. Radha Suarez Basophils/100 WBC (Bld) 0.6 % Normal 0.2-2.[address] [facility] Comment on above: Performed By: #### C VDTBH #### [facility] [address] [place] [address] Dr. Radha Suarez EO # 0.1 103/ul Normal 0.0-0.[address] [facility] Comment on above: Performed By: #### C VDTBH #### [facility] [address] [place] [address] Dr. Radha Suarez Eosinophils/100 WBC (Bld) 1.1 % Normal 0.9-7.[address] [facility] Comment on above: Performed By: #### C VDTBH #### [facility] [address] [place] [address] Dr. Radha Suarez Erythrocyte distribution width (RBC) [Ratio] 14.6 % Normal 11.0-15.[address] [facility] Comment on above: Performed By: #### C VDTBH #### [facility] [address] [place] [address] Dr. Radha Suarez Hematocrit (Bld) [Volume fraction] 43.8 % Normal 36.0-48.[address] [facility] Comment on above: Performed By: #### C VDTBH #### [facility] [address] [place] [address] Dr. Radha Suarez Hemoglobin (Bld) [Mass/Vol] 14.7 g/dL Normal 12.0-16.[address] [facility] Comment on above: Performed By: #### C VDTBH #### [facility] [address] [place] [address] Dr. Radha Suarez IG # 0.04 10e3/ul Critically high 0.00-0.03 [facility] Comment on above: Performed By: #### C VDTBH #### [facility] [address] [address] [address] Radha Suarez IG % 0.4 % Normal 0.0-0.[address] [facility] Comment on above: Performed By: #### C VDTBH #### [facility] [address] [address] [address] Radha Suarez LYMPH # 1.7 103/ul Normal 1.2-3.[address] [facility] Comment on above: Performed By: #### C VDTBH #### [facility] [address] [place] [address] Dr. Radha Suarez Lymphocytes/100 WBC (Bld) 19.0 % Critically low 20.5-60.[address] [facility] Comment on above: Performed By: #### C VDTBH #### [facility] [address] [place] [address] Dr. Radha Suarez MANUAL DIFF REQ NO Normal [facility] Comment on above: Performed By: #### C VDTBH #### [facility] [address] [place] [address] Dr. Radha Suarez MCH (RBC) [Entitic mass] 30.5 pg Normal 26.7-34.[address] [facility] Comment on above: Performed By: #### C VDTBH #### [facility] [address] [place] [address] Dr. Radha Suarez MCHC (RBC) [Mass/Vol] 33.6 g/dL Normal 29.9-35.[address] [facility] Comment on above: Performed By: #### C VDTBH #### [facility] [address] [place] [address] Dr. Radha Suarez MCV (RBC) [Entitic vol] 90.9 fL Normal 81.0-99.[address] [facility] Comment on above: Performed By: #### C VDTBH #### [facility] [address] [place] [address] Dr. Radha Suarez MONO # 0.6 103/ul Normal 0.3-0.[address] [facility] Comment on above: Performed By: #### C VDTBH #### [facility] [address] [place] [address] Dr. Radha Suarez Monocytes/100 WBC (Bld) 6.9 % Normal 1.7-12.[address] [facility] Comment on above: Performed By: #### C VDTBH #### [facility] [address] [place] [address] Dr. Radha Suarez NEUT # 6.5 103/ul Normal 1.4-6.[address] [facility] Comment on above: Performed By: #### C VDTBH #### [facility] [address] [place] [address] Dr. Radha Suarez Neutrophils/100 WBC (Bld) 72.0 % Normal 43.0-75.[address] [facility] Comment on above: Performed By: #### C VDTBH #### [facility] [address] [place] [address] Dr. Radha Suarez Platelet mean volume (Bld) [Entitic vol] 8.9 fL Critically low 9.5-13.[address] [facility] Comment on above: Performed By: #### C VDTBH #### [facility] [address] [place] [address] Dr. Radha Suarez PLT 324 103/ul Normal 150-[address] [facility] Comment on above: Performed By: #### C VDTBH #### [facility] [address] [place] [address] Dr. Radha Suarez RBC 4.82 106/ul Normal 4.20-5.[address] [facility] Comment on above: Performed By: #### C VDTBH #### [facility] [address] [place] [address] Dr. Radha Suarez WBC 9.0 103/ul Normal 4.0-11.[address] [facility] Comment on above: Performed By: #### C VDTBH #### [facility] [address] [place] [address] Dr. Radha Suarez [facility] PCR ([facility])on 12-26 SARS-CoV-2 (COVID-19) RNA RENÉ+probe Ql (Unsp spec) Not detected Normal NOT DETECTED [facility] Comment on above: Result Comment: When diagnostic [...] for this test is supported by the [place] of Health and Human Service's declaration that [...] used). Performed By: #### C VDTB #### [facility] [address] [place] [address] Dr. Radha Suarez PROF 14(COMP METB)on 022 Albumin [Mass/Vol] 3.9 g/dL Normal 3.4-5.0 [facility] Comment on above: Performed By: #### B TELECOM NETWORK MANAGER, CMP #### [facility] [address] [place] [address] Dr. Radha Suarez Albumin/Globulin [Mass ratio] 1.0 {ratio} Normal [facility] Comment on above: Performed By: #### B TELECOM NETWORK MANAGER, CMP #### [facility] [address] [place] [address] Dr. Radha Suarez ALP [Catalytic activity/Vol] 96 U/L Normal 46-[address] [facility] Comment on above: Performed By: #### B TELECOM NETWORK MANAGER, CMP #### [facility] [address] [place] [address] Dr. Radha Suarez ALT [Catalytic activity/Vol] 26 U/L Normal 14-[address] [facility] Comment on above: Performed By: #### B TELECOM NETWORK MANAGER, CMP #### [facility] [address] [place] [address] Dr. Radha Suarez Anion gap [Moles/Vol] 13.6 mmol/L Normal [facility] Comment on above: Performed By: #### B TELE[employer] NETWORK MANAGER, CMP #### [facility] [address] [place] [address] Dr. Radha Suarez AST [Catalytic activity/Vol] 17 U/L Normal 15-[address] [facility] Comment on above: Performed By: #### B TELECOM NETWORK MANAGER, CMP #### [facility] [address] [place] [address] Dr. Radha Suarez Bilirubin [Mass/Vol] 0.3 mg/dL Normal 0.2-1.[address] [facility] Comment on above: Performed By: #### B TELECOM NETWORK MANAGER, CMP #### [facility] [address] [place] [address] Dr. Radha Suarez Calcium [Mass/Vol] 9.1 mg/dL Normal 8.5-10.1 [facility] Comment on above: Performed By: #### B TELECOM NETWORK MANAGER, CMP #### [facility] [address] [place] [address] Dr. Radha Suarez Chloride [Moles/Vol] 106 mmol/L Normal 98-[address] [facility] Comment on above: Performed By: #### B TELECOM NETWORK MANAGER, CMP #### [facility] [address] [place] [address] Dr. Radha Suarez CO2 [Moles/Vol] 26.8 mmol/L Normal 21.0-32.0 [facility] Comment on above: Performed By: #### B TELECOM NETWORK MANAGER, CMP #### [facility] [address] [place] [address] Dr. Radha Suarez Creatinine [Mass/Vol] 0.94 mg/dL Normal 0.55-1.[address] [facility] Comment on above: Performed By: #### B TELECOM NETWORK MANAGER, CMP #### [facility] [address] [place] [address] Dr. Radha Suarez EGFR-AF BRUNEIAN >60 Normal >=60 [facility] Comment on above: Performed By: #### B TELECOM NETWORK MANAGER, CMP #### [facility] [address] [place] [address] Dr. Radha Suarez EGFR-NON AF BRUNEIAN >60 Normal >=[address] [facility] Comment on above: Performed By: #### B TELECOM NETWORK MANAGER, CMP #### [facility] [address] [place] [address] Dr. Radha Suarez Globulin (S) [Mass/Vol] 4.1 g/dL Normal [facility] Comment on above: Performed By: #### B TELECOM NETWORK MANAGER, CMP #### [facility] [address] [address] [address] Radha Suarez Glucose [Mass/Vol] 115 mg/dL Critically high 74-106 [facility] Comment on above: Performed By: #### B TELECOM NETWORK MANAGER, CMP #### [facility] [address] [place] [address] Dr. Radha Suarez Potassium [Moles/Vol] 3.4 mmol/L Critically low 3.5-5.[address] [facility] Comment on above: Performed By: #### B TELECOM NETWORK MANAGER, CMP #### [facility] [address] [place] [address] Dr. Radha Suarez Protein [Mass/Vol] 8.0 g/dL Normal 6.4-8.2 [facility] Comment on above: Performed By: #### B TELECOM NETWORK MANAGER, CMP #### [facility] [address] [place] [address] Dr. Radha Suarez Sodium [Moles/Vol] 143 mmol/L Normal 136-145 [facility] Comment on above: Performed By: #### B TELECOM NETWORK MANAGER, CMP #### [facility] [address] [place] [address] Dr. Radha Suarez Urea nitrogen [Mass/Vol] 13.0 mg/dL Normal 7.0-18.[address] [facility] Comment on above: Performed By: #### B TELECOM NETWORK MANAGER, CMP #### [facility] [address] [place] [address] Dr. Rahda Suarez Urea nitrogen/Creatinine [Mass ratio] 13.8 mg/mg Normal [facility] Comment on above: Performed By: #### B TELECOM NETWORK MANAGER, CMP #### [facility] [address] [place] [address] Dr. Radha Suarez XR CHEST 1 Von [...] ZIA DESAI Date: 2022-01-14 20:[address] [facility] CBC AUTO DIFFon 01-13-2022 BASO # 0.0 103/ul Normal 0.0-0.[address] [facility] Comment on above: Performed By: #### C VDTBH #### [facility] [address] [place] [address] Dr. Radha Suarez Basophils/100 WBC (Bld) 0.5 % Normal 0.2-2.[address] [facility] Comment on above: Performed By: #### C VDTBH #### [facility] [address] [place] [address] Dr. Radha Suarez EO # 0.1 103/ul Normal 0.0-0.[address] [facility] Comment on above: Performed By: #### C VDTBH #### [facility] [address] [place] [address] Dr. Radha Suarez Eosinophils/100 WBC (Bld) 1.0 % Normal 0.9-7.[address] [facility] Comment on above: Performed By: #### C VDTBH #### [facility] [address] [place] [address] Dr. Radha Suarez Erythrocyte distribution width (RBC) [Ratio] 14.6 % Normal 11.0-15.[address] [facility] Comment on above: Performed By: #### C VDTBH #### [facility] [address] [place] [address] Dr. Radha Suarez Hematocrit (Bld) [Volume fraction] 42.3 % Normal 36.0-48.[address] [facility] Comment on above: Performed By: #### C VDTBH #### [facility] [address] [address] [address] Radha Suarez Hemoglobin (Bld) [Mass/Vol] 13.7 g/dL Normal 12.0-16.[address] [facility] Comment on above: Performed By: #### C VDTBH #### [facility] [address] [address] [address] Rdaha Suarez IG # 0.04 10e3/ul Critically high 0.00-0.03 [facility] Comment on above: Performed By: #### C VDTBH #### [facility] [address] [place] [address] Dr. Radha Suarez IG % 0.5 % Normal 0.0-0.[address] [facility] Comment on above: Performed By: #### C VDTBH #### [facility] [address] [place] [address] Dr. Radha Suarez LYMPH # 1.8 103/ul Normal 1.2-3.[address] [facility] Comment on above: Performed By: #### C VDTBH #### [facility] [address] [place] [address] Dr. Radha Suarez Lymphocytes/100 WBC (Bld) 21.4 % Normal 20.5-60.[address] [facility] Comment on above: Performed By: #### C VDTBH #### [facility] [address] [place] [address] Dr. Radha Suarez MANUAL DIFF REQ NO Normal [facility] Comment on above: Performed By: #### C VDTBH #### [facility] [address] [address] [address] Radha Suarez MCH (RBC) [Entitic mass] 30.0 pg Normal 26.7-34.[address] [facility] Comment on above: Performed By: #### C VDTBH #### [facility] [address] [place] [address] Dr. Radha Suarez MCHC (RBC) [Mass/Vol] 32.4 g/dL Normal 29.9-35.[address] [facility] Comment on above: Performed By: #### C VDTBH #### [facility] [address] [address] [address] Radha Suarez MCV (RBC) [Entitic vol] 92.8 fL Normal 81.0-99.[address] [facility] Comment on above: Performed By: #### C VDTBH #### [facility] [address] [place] [address] Dr. Radha Suarez MONO # 0.7 103/ul Normal 0.3-0.[address] [facility] Comment on above: Performed By: #### C VDTBH #### [facility] [address] [place] [address] Dr. Radha Suarez Monocytes/100 WBC (Bld) 7.9 % Normal 1.7-12.[address] [facility] Comment on above: Performed By: #### C VDTBH #### [facility] [address] [place] [address] Dr. Radha Suarez NEUT # 5.6 103/ul Normal 1.4-6.[address] [facility] Comment on above: Performed By: #### C VDTBH #### [facility] [address] [place] [address] Dr. Radha Suarez Neutrophils/100 WBC (Bld) 68.7 % Normal 43.0-75.[address] [facility] Comment on above: Performed By: #### C VDTBH #### [facility] [address] [place] [address] Dr. Radha Suarez Platelet mean volume (Bld) [Entitic vol] 9.5 fL Normal 9.5-13.[address] [facility] Comment on above: Performed By: #### C VDTBH #### [facility] [address] [place] [address] Dr. Radha Suarez PLT 321 103/ul Normal 150-[address] [facility] Comment on above: Performed By: #### C VDTBH #### [facility] [address] [place] [address] Dr. Radha Suarez RBC 4.56 106/ul Normal 4.20-5.[address] [facility] Comment on above: Performed By: #### C VDTBH #### [facility] [address] [address] [address] Radha Suarez WBC 8.2 103/ul Normal 4.0-11.[address] [facility] Comment on above: Performed By: #### C VDTBH #### [facility] [address] [address] [address] Radha Suarez FREE T3on 01-13-2022 FREE T3 1.99 pg/mlL Critically low 2.18-3.[address] [facility] Comment on above: Performed By: #### C BC #### [facility] [address] [address] [address] Radha Suarez FREE T4on 01-13-2022 Free T4 [Mass/Vol] 1.02 ng/dL Normal 0.76-1.46 [facility] Comment on above: Performed By: #### C VDTBH #### [facility] [address] [address] [address] Radha Suarez MRI LUMBAR SPINE WO IVCONon 01-13-2022 MRI LUMBAR SPINE WO IVCON * * *Final Report* * * DATE OF EXAM: Jan 13 2022 2:53PM [facility] 0303 - MRI LUMBAR SPINE WO [...] crest and there are 5 lumbar-type vertebrae. Sales Representative Facility Services: [facility] Transcribe Date/Time: Jan 13 2022 3:43P Dictated by : KIERAN MONTOYA MD This examination was interpreted and the report reviewed and electronically signed by: KIERAN MONTOYA MD on Jan 13 2022 3:50PM EST [id number] Normal [facility] MRI THORACIC SPINE WO IVCONo n 01-13-2022 MRI THORACIC SPINE WO IVCON * * *Final Report* * * DATE OF EXAM: Jan 13 2022 2:53PM [facility] 0325 - MRI THORACIC SPINE WO [...] crest and there are 5 lumbar-type vertebrae. Sales Representative Facility Services: [employer] Transcribe Date/Time: Jan 13 2022 3:43P Dictated by : KIERAN MONTOYA MD This examination was interpreted and the report reviewed and electronically signed by: KIERAN MONTOYA MD on Jan 13 2022 3:50PM EST [id number] Normal [facility] No Panel Informationon 01-13 [facility] PROF CHEM 8 (BAS METB)on Anion gap [Moles/Vol] 11.3 mmol/L Normal [facility] Comment on above: Performed By: #### C BC #### [facility] [address] [place] [address] Dr. Radha Suarez Calcium [Mass/Vol] 9.5 mg/dL Normal 8.5-10.1 [facility] Comment on above: Performed By: #### C BC #### [facility] [address] [address] [address] Radha Suarez Chloride [Moles/Vol] 105 mmol/L Normal 98-[address] [facility] Comment on above: Performed By: #### C BC #### [facility] [address] [address] [address] Radha Suarez CO2 [Moles/Vol] 28.2 mmol/L Normal 21.0-32.0 [facility] Comment on above: Performed By: #### C BC #### [facility] [address] [address] [address] Radha Suarez Creatinine [Mass/Vol] 0.86 mg/dL Normal 0.55-1.[address] [facility] [address] [facility] Comment on above: Performed By: #### C BC #### [facility] [address] [address] [address] Radha Suarez EGFR-AF BRUNEIAN >60 Normal >=60 [facility] Comment on above: Performed By: #### C BC #### [facility] [address] [address] [address] Radha Suarez EGFR-NON AF BRUNEIAN >60 Normal >=[address] [facility] Comment on above: Performed By: #### C BC #### [facility] [address] [address] [address] Radha Suarez Glucose [Mass/Vol] 99 mg/dL Normal 74-106 [facility] Comment on above: Performed By: #### C BC #### [facility] [address] [place] [address] Dr. Radha Suraez Potassium [Moles/Vol] 3.5 mmol/L Normal 3.5-5.[address] [facility] Comment on above: Performed By: #### C BC #### [facility] [address] [place] [address] Dr. Radha Suarez Sodium [Moles/Vol] 141 mmol/L Normal 136-145 [facility] Comment on above: Performed By: #### C BC #### [facility] [address] [place] [address] Dr. Radha Suarez Urea nitrogen [Mass/Vol] 15.0 mg/dL Normal 7.0-18.[address] [facility] Comment on above: Performed By: #### C BC #### [facility] [address] [place] [address] Dr. Radha Suarez Urea nitrogen/Creatinine [Mass ratio] 17.4 mg/mg Normal [facility] Comment on above: Performed By: #### C BC #### [facility] [address] [place] [address] Dr. Radha Suarez TSHon 01-13-2022 TSH 5.692 uIU/mL Critically high 0.358-3.740 [facility] Comment on above: Performed By: #### C BC #### [facility] [address] [place] [address] Dr. Radha Suarez C-REACTIVE PROTEIN (CRP)on 0 6-10-2022 CRP [Mass/Vol] 0.9 mg/dL High <0.9 mg/dL [facility] ESR Westergren method (Bld) [Velocity]on 12-04-2021 ESR (Bld) [Velocity] 17 mm/h 0 - 20 mm/hr [facility] HbA1c (Bld)on 12-04-2021 Average glucose Estimated from glycated hemoglobin (Bld) [Mass/Vol] 111 mg/dL [facility] HbA1c (Bld) [Mass fraction] 5.5 % 4.3 - 5.6 % [facility] CNOVon 12-03-2021 CNOV Office Visit (PAINLN ) NATO SHORT ([id number]) 1970 F Date Time Provider Department 12/03/21 [...] she is a candidate for SCS (saw [employer] website). Patient reports the date of onset [...] supervised home exercise program (HEP): No 5. Compensation Programs Manager: No Passive conservative therapy lasting 6 weeks in the last six months (see below) 1. Medical devises: No 2. Acupuncture: No 3. Tens unit: No 4. Prescription pain medication: No 5. 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 EXAMINATION: [id number] IOR: Scoliosis: No Pelvic Tilt: No Leg [...] (more content not included)... Normal [facility] CRP SerPl-mCncon 12-03-2021 CRP [Mass/Vol] 0.9 mg/dL High <0.9 [facility] Comment on above: Order Comment: Speci men Type: BLOOD SPECIMEN Ordering Facility: [facility] Address: [address] [place] [address] Performed By: #### 1 [id number] #### [facility] CLIA [id number] [address] [place] [address] [place] [address] [place] ESR Westergren method (Bld) [Velocity]on 12-03-2021 ESR (Bld) [Velocity] 17 mm/h Normal 0-20 [facility] Comment on above: Order Comment: Charles ayala Type: BLOOD SPECIMEN Ordering Facility: [facility] Address: [address] [place] [address] Performed By: #### 4 [id number] #### [facility] CLIA [id number] [address] [place] [address] HGB A1Con 12-03-2021 Average glucose Estimated from glycated hemoglobin (Bld) [Mass/Vol] 111 mg/dL Normal [facility] Comment on above: Order Comment: Charles ayala Type: BLOOD SPECIMEN Ordering Facility: [facility] Address: [address] [place] [address] Result Comment: eAG: (Estimated average glucose) is a calculated value from HgbA1c and is patient intake representative of the average blood glucose level in the last 2-3 month period. Performed By: #### H BA1C #### [facility] CLIA [id number] [address] [place] [address] STATES [facility] HbA1c (Bld) [Mass fraction] 5.5 % Normal 4.3-5.6 [facility] Comment on above: Order Comment: Charles ayala Type: BLOOD SPECIMEN Ordering Facility: [facility] Address: [address] [place] [address] Result Comment: Amer ican Diabetes Association guidelines indicate that patients with HgbA1c in the range 5.7-6.4% are at increased risk for development of diabetes, and intervention by lifestyle modification may be beneficial. HgbA1c greater or equal to 6.5% is considered diagnostic of diabetes. Performed By: #### H BA1C #### [facility] CLIA [id number] [address] [place] [address] STATES OF [facility] No Panel Informationon 12-03 [facility] XR LUMBAR 3V AP/LAT/L5-S1on 12-03-2021 XR LUMBAR [...] subluxation at L4-5 with facet degenerative changes Sales Representative Facility Services: [facility] Transcribe Date/Time: Dec 04 2021 8:19P Dictated by : PARMJIT PIMENTEL MD This examination was interpreted and the report reviewed and electronically signed by: PARMJIT PIMENTEL MD on Dec 04 2021 8:20PM EST [id number] Normal [facility] CNPKeri 12-02-2021 CNPN Telephone (PAINLN) NATO SHORT ([id number]) 1970 F Date Time Provider Department 12/02/21 LAZARUS JOHNSON During your visit today, we recorded the following information about you: Keren Rosales MA 12/02/2021 1:49 PM Signed Patient was advised of the following: This is a follow up phone call regarding your appointment with Dr Johnson, which you are scheduled to see at [facility] on 12/03/2021 1) Have you been evaluated [...] need to reschedule please call us at [phone]. Left VM with new patient policy advised [...] KEREN ROSALES on 12/02/21 Normal [facility] XR FOOT LT MIN 3 VIEWSon [...] by: NAOMIE VELASQUEZ Date: 2021-11-12 21:[address] [facility] XR CHEST 2 Von 01-28-2022 SARS-CoV-2 (COVID-19) RNA RENÉ+probe Ql (Unsp spec) [...] by: NAOMIE VELASQUEZ Date: 2021-07-23 22:[address] [facility] Consent for Treatmenton 100 Consent for Treatment [id number] D:127 Normal [facility] Registrationon 03-05-2020 Registration [id number] D:127 Normal [facility] Consenton 02-29-2020 Consent [id number] 0CD:127 Normal [facility] Vital Signs Date Time Vital Sign Value Performing Clinician Faci litkevin 12-03-2021 15:14-0400 Body height 152.4 cm Lazarus Johnson MD Work Phone: [facility] 12-03-2021 15:14-0400 Heart rate 85 /min Lazarus Johnson MD Work Phone: [facility] 12-03-2021 15:14-0400 SaO2% (BldA) [Mass fraction] 96 % Lazarus Johnson MD Work Phone: [facility] Encounters Encounter Date Encounter Type Care Provider Facility Start: 09-05-2023 End: 09-05-2023 ambulatory WHIT FOWLER Not Available Start: 05-24-2023 End: 05-24-2023 ambulatory WHIT FOWLER Not Available Start: 03-14-2023 End: 03-15-2023 ambulatory DILLAN NEWBY [facility] Start: 03-10-2023 End: 03-10-2023 ambulatory [facility] Start: 02-10-2023 End: 02-13-2023 ambulatory WHIT FOWLER [facility] Start: 10-07-2022 End: 10-07-2022 ambulatory [facility] Start: 07-15-2022 End: 07-15-2022 ambulatory NATACHA FOWLER Facility:H1 Start: 07-08-2022 End: 07-08-2022 ambulatory [facility] Start: 06-16-2022 ambulatory [facility] Start: 06-04-2022 End: 06-04-2022 ambulatory [facility] Start: 05-30-2022 End: 05-30-[address] MEY FARNSWORTH Facility:[facility]1 Start: 05-19-2022 End: 05-19-2022 ambulatory [facility] Start: 04-30-2022 Evaluation and manag ement of inpatient [facility] Start: 04-29-2022 End: 04-30-2022 Evaluation and management of inpatient [facility] Start: 04-29-2022 End: 05-04-2022 Evaluation and management of inpatient [facility] Start: 04-27-2022 End: 04-27-2022 ambulatory [facility] Start: 04-21-2022 End: 04-21-2022 ambulatory [facility] Start: 04-21-2022 End: 04-21-2022 Encounter for other preprocedural examination NATACHA FOWLER [facility] Start: 04-21-2022 End: 04-21-2022 ambulatory [facility] Start: 04-20-2022 ambulatory NATACHA FOWLER [facility] ity:H1 Start: 04-16-2022 End: 04-17-2022 ambulatory NATACHA FOWLER Facility:[facility]1 Start: 04-16-2022 End: 04-17-2022 Encounter for other preprocedural examination NATACHA FOWLER Facility:[facility]1 Start: 04-07-2022 End: 04-07-2022 ambulatory [facility] Start: 03-24-2022 End: 03-24-2022 ambulatory [facility] Start: 03-08-2022 End: 03-09-2022 ambulatory NATACHA FOWLER Facility:[facility]1 Start: 02-22-2022 Get Medical Advice Lazarus Johnson MD Work Phone: Pain Management Comment on above: Refill Start: 02-11-2022 ambulatory Lazarus spain MD Work Phone: Pain Management Comment on above: Images Start: 02-03-2022 End: 02-04-2022 ambulatory Lazarus Johnson MD Work Phone: Pain Management Comment on above: Left hip/buttocks pa in Start: 01-31-[address] [facility] Facility :[facility] Start: 01-29-2022 ambulatory Lazarus spain [...] 01-13-2022 Subsequent hospital visit by physician Mri [facility] (Lg Bore/1.5t) Radiology MRI Comment on above: [...] Patient encounter procedure Cash Kang RT(R) JACQUI LORSHADE Start: 12-11-2021 ambulatory NATACHA FOWLER Facil ity:H1 Start: 12-03-2021 End: 12-03-2021 Subsequent hospital visit by physician John [facility] Radiology Comment on above: Radiculopathy of lum [...] Pain Management Comment on above: Appointment (pain rigoberto masterson) Start: 11-19-2021 End: 11-20-2021 ambulatory NATACHA FOWLER [...] Author Start: 12-03-2024 DIABETES SCREEN DIABETES SCREEN [facility] Start: 12-03-2024 Diabetes Screening Diabetes Screenin g [facility] Start: 02-25-2023 Influenza vaccination [facility] [place] Start: 06-27-2022 DEPRESSION ASSESSMENT DEPRESSION ASS ESSMENT [facility] Start: 02-25-2022 Influenza vaccination [facility] Start: 01-26-2022 End: 03-28-2022 Basic metabolic 2000 panel - Serum or Plasma BASIC METABOLIC PNL Lab Routine Lumbar disc herniation Radiculopathy of lumbar region Expected: 01/26/2022, Expires: 03/28/2022 [facility] Work Phone: Comment on above: Expected: 01/26/2022 , Expires: 03/28/2022 Start: 2020 SHINGRIX VACCINE (1 of 2) SHINGRIX VACCINE (1 of 2) [facility] Start: 2015 COLOGUARD (FIT-DNA) COLOGUARD (FIT-D NA) [facility] Start: 2015 Colonoscopy COLONOSCOPY [facility] Start: 2015 COLORECTAL CANCER SCREENING COLORECTAL CANCER SCREENING [facility] Start: [address] COLONOGRAPHY [facility] Start: 2015 DIABETES SCREEN DIABETES SCREEN [facility] Start: 2015 FECAL OCCULT BLOOD FECAL OCCULT BLOO D [facility] Start: 2015 Lipid 1996 panel - S bunny or Plasma Lipid Screening [facility] Start: 2015 LIPID SCREEN LIPID SCREEN [facility] Start: 2015 SIGMOIDOSCOPY SIGMOIDOSCOPY [facility] Start: 2010 Mammography [facility] Start: 2000 HPV TESTING HPV TESTING [facility] Start: 1991 PAP TESTING PAP TESTING [facility] Start: 1989 Urine microalbumin profile [facility] Start: 1988 HEPATITIS C SCREENING HEPATITIS C SC REENING [facility] Start: 1988 HIV SCREENING HIV SCREENING [facility] Start: 1982 Adult depression screening assessment DEPRESSION SCREENING [facility] Start: 1976 PNEUMOCOCCAL (1 - PCV) PNEUMOCOCCAL (1 - PCV) [facility] Start: 1976 Pneumococcal vaccination Pneum ococcal Vaccine (1 - PCV) [facility] Start: 1975 COVID-19 VACCINE (#1) COVID-19 VACCI NE (#1) [facility] Start: 02-18-1971 COVID-19 VACCINE (#1) COVID-19 VACCI NE (#1) [facility] Start: 1970 HEPATITIS B (1 of 3 - 3-dose series) HEPATITIS B (1 of 3 - 3-dose series) [facility] Start: 1970 Hepatitis B Vaccine (1 of 3 - 3-dose series) Hepatitis B Vaccine (1 of 3 - 3-dose series) [facility] End: 01-02-2023 Mri spinal canal lumbar w/o contrast material MRI LUMBAR SPINE WO IVCON Radiology Routine Radiculopathy of lumbar region 1 Occurrences starting 12/03/2021 until 01/02/2023 [facility] Work Phone: Comment on above: 1 Occurrences starti ng 12/03/2021 until 01/02/2023 End: 01-02-2023 Mri spinal canal thoracic w/o contrast matrl MRI THORACIC SPINE WO IVCON Radiology Routine Radiculopathy of lumbar region 1 Occurrences starting 12/03/2021 until 01/02/2023 [facility] Work Phone: Comment on above: 1 Occurrences starti ng 12/03/2021 until 01/02/2023 [facility] Immunizations Immunization Date Immunization Notes Care Provider Lorena lugo 04-24-2009 influenza virus vacc ine, unspecified formulation Mri Bore/1.5t) [facility] Payers Date Payer Category Payer Private Health Insurance [id number] 2021 Unknown [employer] C[employer] PPO OOS [id number] 2021-Present [phone] [address] [place] [address] PPO [id number] 2021 Unknown [employer] CARD PPO OOS [id number] 2021-Present [phone] [address] [place] [address] PPO [id number] 2020 Medicaid [employer] MEDICA[employer] [id number] 2020-Present [phone] [address] [place] [address] Medicaid [id number] 2020 Medicaid [id number] 1970 Unknown [id number] 2.16.840.1.927148.3.579.2. 593 1970 Unknown [id number] 2.16.840.1.766405.3.579.2. 593 1970 Unknown [id number] 2.16.840.1.416152.3.579.2. 593 1970 Unknown [id number] 2.16.840.1.237003.3.579.2. 593 1970 Unknown [id number] 2.16.840.1.893623.3.579.2. 593 1970 Unknown [id number] 2.16.840.1.884648.3.579.2. 593 1970 Unknown [id number] 2.16.840.1.345766.3.579.2. 593 1970 Unknown [id number] 2.16.840.1.561020.3.579.2. 593 1970 Unknown [id number] 2.16.840.1.686537.3.579.2. 593 1970 Unknown [id number] 2.16.840.1.022896.3.579.2. 593 1970 Unknown [id number] 2.16.840.1.639775.3.579.2. 593 1970 Unknown [id number] 2.16.840.1.701626.3.579.2. 593 1970 Unknown [id number] 2.16.840.1.539015.3.579.2. 593 1970 Unknown [id number] 2.16.840.1.854947.3.579.2. 173 1970 Unknown [id number] 2.16.840.1.675653.3.579.2. 1259 1970 Unknown [id number] 2.16.840.1.271137.3.579.2. 1259 1959 Self-pay [id number] 1959 Unknown [id number] 1959 Unknown [id number] 1959 Unknown [id number] Unknown [id number] Social History Date Type Detail Facility Tobacco smoking stat [facility] Tobacco smoking consumption unknown [facility] Start: 1970 Sex Assigned At Female [facility] [place] Start: 12-03-2021 Tobacco smoking stat [facility] Smokes tobacco daily [facility] Start: 12-03-2021 Tobacco use and exposure User of smo keless tobacco [facility] Start: 12-03-2021 Alcohol intake Lifetime non-d mar (finding) [facility] Start: 12-03-2021 History SDOH Alcohol Frequency 1 [facility] Start: 11-23-2021 End: 12-03-2021 Exposure to SARS-CoV-2 (event) Unable to assess [facility] Start: 12-12-2021 End: 02-02-2022 Exposure to SARS-CoV-2 (event) Not sure [facility] Start: 12-03-2021 History of Social function [facility] Start: 12-03-2021 Tobacco use panel [facility] National Score (1-10 0), lower number is lower risk 60 [facility] Start: 10-30-2021 Gender identity Identifies as female gender (finding) [facility] Clinical Notes 11-19-2021 to 03-10-2023 Telephone Encounter [...] (six) hours if needed., Disp: , Rfl: nnjpehlptt-fqqiksmgzvdml-ilbl 50-325-40 mg tablet, Take 1 tablet by [...] 0 min Stress: Stress Concern Present (04/07/2022) [place] [employer] - Occupational Stress Questionnaire Feeling of Stress : Rather much Social Connections: Socially Isolated (04/07/2022) Social Connection and Isolation Panel [NHANES] Frequency of Communication with Friends and Family: More than three times a week Frequency of Social Gatherings with Friends and Family: More than three times a week Attends Nondenominational Services: Never Active Member of Clubs or Organizations: No (more content not included)... [facility] 10-07-2022 Note Chief Complaint: nec k pain, [...] More than three times a week Attends Nondenominational Services: Never Active Member of Clubs or [...] Alignment spine: normal (more content not included)... [facility] 07-08-2022 Note Orthopedic Surgery Subjective 04/29/2022 L4-5 [...] - Sensation intact - Motor 5/5 all reddy muscle groups Assessment/Plan Nato Short is a 51 y.o. year old female s/p L4-5 Decompression - Left and Instrumented Lumbar Fusion - Left (04/29/2022) Recommend avoid heavy lifting Going back to work July 30 with restriction Follow up in 3 months [facility] 06-16-2022 Note Orthopedic Surgery L4-5 DECOMPRESSION (L), INSTRUMENTED LUMBAR FUSION (L) Operative Note Date: 04/29/2022 Location: [facility] OR Name: Nato Short, : 1970, Surgeons * Dillan Newby - Primary Guide Changer: Michael Morales M.D. Preoperative Diagnosis: L 4-5 grade I spondylolisthesis with foramina stenosis and L5 radiculopathy (ICD-10 M43.16, M99.53, M54.16). Postoperative Diagnosis: L 4-5 grade I spondylolisthesis with foramina stenosis and L5 radiculopathy (ICD-10 M43.16, M99.53, M54.16). OPERATION: 1. L 4-5posterior lumbar spine decompression (64477). 2. L 4-5 transforaminal lumbar interbody fusion using autograft, crushed cancellous allograft, [employer] and threaded bone dowel spacer 11 mm and posterolateral fusion using autograft, crushed cancellous allograft and [employer] (27098, 25781). 3. L 4-5 instrumentation using Expedium system from [employer] (67829). 4. Local bone autograft harvesting and use of crush cancellous allograft (81199, 25134). 5. Use of intraoperative fluoroscopy (13599). Procedure Summary Anesthesia: General ASA: III Position: Prone position on the Rashid table in reverse Trendelenburg position. Estimated Blood Loss: 250 mL Total IV Fluids: 1000 mL Drains: Hemovac Closed/Suction Drain Right Back 10 Fr. (Active) Urethral Catheter Non-latex (Active) Implants Type Name Action Serial No. [employer] READIGRAFT CANCELLOUS Implanted [id number] [employer] VIVGEN Implanted [id number] [employer] VIVIGEN 10CC Implanted ID: [id number] expedium 7x40 screws Implanted Screw SETSCREW,INNER,SINGLE - [id number] Implanted expedium 45mm rods Implanted T-PLIF SPACER 11MM Implanted [id number] Staff: Feed In Worker: Zoey Tellez RN Scrub Person: Cherise Cardona, FANG 06/16/22 Patient presents today for evaulation of [...] infection-erythema, drainage, worsening pain, warmth. JEANNINE Yarbrough [facility] 06-04-2022 Note Attestation signed by Dillan Newby [...] be an additional personal documentation from me. [facility] 05-19-2022 Note Orthopedic Surgery Subjective 04/29/2022 L4-5 [...] heavy lifting Follow up in 6 weeks [facility] 05-04-2022 Note Physical Therapy Physical Therapy Treatment Patient Name: Nato Shrot : 1970 Today's Date: 05/04/2022 Patient tolerated [...] Clicks T-Score: 18 Assessment/Plan PT Assessment PT Assessment/SUGAR LABORATORY ASSISTANT Summary: Patient able to progress with ambulation [...] PRN PT Disc (more content not included)... [facility] 05-04-2022 Note Insurance denied pt' s placement [...] face to face and script from Ortho. [facility] 05-04-2022 Note Occupational Therapy Occupational Therapy Treatment [...] with call light in reach. Treatment Time: 7934-4920 Outcome Assessments AM-PAC 6 Clicks Putting on [...] Eating meals?: None (Independent) Total Score OT [facility]: 20 Assessment/Plan OT Assessment OT Impairments: Decreased ADL status, Decreased endurance, Decreased IADLs OT Assessment/JOSEF Summary: Pt progressing towards goals, however would benefit from continued therapy to promote independence in ADL's and functional mobility to return to PLOF. Prognosis: Good Evaluation/Treatment Tolerance: Patient tolerated treatment [...] until discharge & PRN OT Discharge Recommendations: retirement facility placement OT Goals: Multi-Disciplinary Problems (from [...] during ADL's and transfers 04/30/22 05/14/22 -- [facility] 05-04-2022 Note Attestation signed by Dillan Newby [...] discharge Michael Morales MD Orthopaedic Surgery, PGY-5 [facility] 05-03-2022 Note Physical Therapy Physical Therapy Treatment [...] and agreeable to activities as able. RN okays session. Precautions Precautions Medical Precautions: fall risk, [...] Clicks T-Score: 16 Assessment/Plan PT Assessment PT Assessment/SUGAR LABORATORY ASSISTANT Summary: Pt. with only minimal ability to increase ambulatory distance this session. Prognosis: Good Evaluation/Treatment Tolerance: Patient limited by pain Medical Staff Made Aware: Yes PT Education/Comments: Pt. defers sitting in bedside chair and return to bed at end of session. Pt. remains in bed upon this SUGAR LABORATORY ASSISTANT exiting room with tray table and call light within reach. Plan Level of assist: 1 assist Treatment/Interventions: Functional transfer training, Endurance training, Bed mo (more content not included)... [facility] 05-03-2022 Note Occupational Therapy Occupational Therapy Treatment [...] few steps with walker to and from [facility]. Pt was able to complete perineal hygiene) [...] Pt returned to bed at EOS Treatment time:2033-0909 Outcome Assessments AM-PAC 6 Clicks Putting on [...] Eating meals?: None (Independent) Total Score OT [facility]: 18 Assessment/Plan OT Assessment OT Impairments: Decreased [...] (Pt did not dress lower body however, blurb writer educated on use of AE for LB dressing) OT Plan: Skilled OT OT Frequency: 1 time per day until discharge & PRN OT Discharge Recommendations: retirement facility placement OT Goals: Multi-Disciplinary Problems (from [...] using adaptive technique (more content not included)... [facility] 05-03-2022 Note Dino Tuanvinicio ramirez. [facility] able to accept and started pre-cert. Updated pt and updated AVS. [facility] 05-03-2022 Note Attestation signed by Dillan Newby MD at 05/03/2022 12:34 PM I personally [...] discharge Michael Morales MD Orthopaedic Surgery, PGY-5 [facility] 05-02-2022 Note [facility]. [facility] 05-02-2022 Note Attestation signed by Dillan Newby [...] outpatient Milagro Davis MD Orthopaedic Surgery, PGY-1 [facility] 05-01-2022 Note Occupational Therapy Occupational Therapy Missed Visit Patient Name: Nato Short : 1970 Today's Date: 05/01/2022 Pt unable to be seen for OT tx this date d/t uncontrolled pain. Will cont to check back as able. Time: 1515 MILAN Briseno [facility] 05-01-2022 Note Received call from Jarrod Shabazz, pt needs SNF placement per therapy recommendations. Met with pt and she is agreeable to a SNF near her home. Will follow with referrals to [facility] and [facility] to check bed availability and in network. [facility] 05-01-2022 Note Physical Therapy Physical Therapy Treatment [...] Clicks T-Score: 16 Assessment/Plan PT Assessment PT Assessment/SUGAR LABORATORY ASSISTANT Summary: Pt. only able to minimally progress ambulation this session d/t sig. LLE pain and weakness. Pt. would benefit from cont. skilled PT to address deficits. Evaluation/Treatment Tolerance: Patient limited by pain, Patient limited by fatigue Medical Staff Made Aware: Yes PT Education/Comments: Pt. returns to right sidelying in bed after ambulation trial and remains there upon this SUGAR LABORATORY ASSISTANT exiting room. Pillows are placed for comfort. Tray table and call light are within reach. (more content not included)... [facility] 05-01-2022 Note Attestation signed by Dillan Newby [...] Dr. Odin Davis MD Orthopaedic Surgery, PGY-1 [facility] 04-30-2022 Note Physical Therapy Physical Therapy Evaluation [...] arrival and left up in chair upon blurb writer's exit with transport on their way to [...] Level of Function Prior Function Level of [place]: Independent with ADLs and functional transfers, Independent with homemaking with ambulation ADL Assistance: Independent Homemaking Assistance: Independent Prior Function Comments: Pt reports using RW for ambulation around home prior to hospital admit. Independent with all mobility, ADLs and homemaking previously. Pt also receiving [facility] PT for back pain radiating to [...] with step-to pattern (more content not included)... [facility] 04-30-2022 Note Attestation signed by Whit Ambriz OT at 04/30/2022 12:11 PM This note has been reviewed and is co-signed by the supervising therapist. This therapist provided 1:1 supervision during the session and reviewed the therapists documentation. Occupational Therapy Occupational Therapy Evaluation Patient Name: Nato Short : 1970 Today's Date: 04/30/2022 Start Time 950 Stop Time 1037 Time Calculation (min) 46 min OT Discharge Recommendations: Home OT vs. retirement facility placement based on progress made prior to discharge General Visit Information: General Subjective: Pt presents to [facility] on 04/29/22 for formal preoperative visit [...] Bed Mobility B (more content not included)... [facility] 04-30-2022 Note Clarified with pt th at she was active with [facility] until a few weeks ago. Advised pt that MD typically wants her to hold off on home therapy until he sees her at next follow up. Sent return referral and updated AVS. [facility] 04-30-2022 Note Attestation signed by Dillan Newby [...] tomorrow Michael Morales MD Orthopaedic Surgery, PGY-5 [facility] 04-29-2022 Note Assessment completed at bedside with pt. Pt lives at home with her son (whom works midnights), in a trailer, with three steps to get inside. Pt owns a cane, RW, and shower chair. Pt reported being active with [facility], hx of OP PT at [facility], and denied hx of SNF or IPR. Pt plans to DC home and continue with [facility], will be transported by son, and has no current needs at this time. [facility] 04-29-2022 Note Patient: Nato Short Procedure Summary Date: 04/29/22 Room / Location: [facility] OPERATING ROOM 12 / [facility] Operating Room Anesthesia Start: 806 Anesthesia Stop: [...] for transfer to floor. Liz Fernandez MD Structural Fitter PGY-2 04/29/2022 12:08 PM [facility] 04-29-2022 Note Airway Date/Time: 04/29/2022 8:18 AM Urgency: elective Airway not difficult General Information and Staff Patient location during procedure: OR Anesthesiologist: Capo Harris MD Resident/LPN PER DIEM/CAA: ALONDRA Zuniga Performed: resident/LPN PER DIEM/ALONDRA Indications and Patient Condition Indications for airway [...] Eyes taped after induction, before airway management [facility] 04-29-2022 Note Patient: Nato Short Procedure Information Date/Time: 04/29/22 0800 Procedures: Left L5-S1 decompression (Left: Spine Lumbar) INSTRUMENTED LUMBAR FUSION (Left: Spine Lumbar) - C-arm, Rashid Table, [employer], SSEP#[id number], reps notified. Location: [facility] OPERATING ROOM 12 / [facility] Operating Room Surgeons: Dillan Newby MD Relevant [...] Plan discussed with CAA. Additional Equipment Requests [facility] 04-21-2022 Note Attestation signed by Dillan Newby [...] present from L4-L5 Outside MRI L-spine from [facility] performed 01/13/2022 was reviewed today and shows [...] be an additional personal documentation from me. [facility] 04-16-2022 Note EXAMINATION: XR CHES T 2 [...] authenticated by: NAOMIE THEODORE Date: 2022-04-16 09:[address] [facility] 04-07-2022 Note Chief Complaint: LBP HPI [...] present from L5-S1 Outside MRI L-spine from [facility] performed 01/13/2022 was reviewed today and shows [...] her recent L spine CT done at [facility] so we may review it prior to surgery. We did explain that this preop L spine CT was necessitated in order to fully characterize her lesions and perform appropriate preop planning Patient is a current smoker. We advised her that she must significantly decrease her smoking or quit altogether in order to maximize the success of her surgery. She is currently on [facility] Follow up for formal preoperative visit prior to the surgical date. Furthermore, we have advised patient that she must see her PCP for formal preoperative clearance for the surgery PREOPERATIVE DIAGNOSES: L5-S1 grade I spondylolisthesis with foraminal stenosis and L5 radiculopathy (ICD-10 M43.16, M99.53, M54.16). SURGICAL PROCEDURE: 1. L5-S1 posterior lumbar spine decompression (39815). 2. L5-S1 transforaminal lumbar interbody fusion using autograft, crushed cancellous allograft, and threaded bone dowel spacer and posterolateral fusion using autograft, crushed cancellous allograft (19688, 19309). 3. L5-S1 instrumentation using USS system from [employer] (11059). 4. Local bone autograft harvesting and use of crush cancellous allograft (72521, 07166). 5. Use of intraoperative fluoroscopy (77695). James Iyer MD Orthopedic Surgery, PGY-3 [facility] Pager: [phone] 04/07/22 1:23 PM By using the attestations below, the signing clinician ghanshyam (more content not included)... [facility] 03-24-2022 Note Chief Complaint: LBP HPI When [...] 600 TID Follow up after the MRI [facility] 08-31-2022 Miscellaneous Notes Initial Office Visit - 12/03/21 [...] Jane Carpenter Ma documented in this encounter [facility] 02-12-2022 Miscellaneous Notes XR and MRI results were sent to patient's mailing address. documented in this encounter [facility] 02-02-2022 Miscellaneous Notes Called patient, verified name [...] will have my daughter take me to [facility] ER and call you tomorrow with an update. Can we call patient and get current description of her pain. The purpose of trial of LESI is to see if this would improve her current pain symptoms Yasmeen Azul APRN.CNP documented in this encounter [facility] 02-02-2022 Miscellaneous Notes Called patient, left a [...] in the ED. documented in this encounter [facility] 01-27-2022 Miscellaneous Notes Order was faxed and received confirmation. For patient to continue [employer] recommend check BMP prior to refilling it Yasmeen Azul APRN.APPLICATION DEFENSE MANAGER documented in this encounter [facility] 01-14-2022 Miscellaneous Notes Please schedule a Left [...] January 14, 2022 documented in this encounter [facility] 01-13-2022 Note HNO ID: [id number] Author: Salbador Palacios, crude oil driver Service: Radiology Author Type: Assistant Spa Manager Type: Progress Notes Filed: 01/13/2022 2:51 PM [...] DATA: Not applicable SIGNED BY: Salbador Palacios [employer] January 13, 2022 2:50 PM [facility] 01-13-2022 History of Present illness Narrative [...] DATA: Not applicable SIGNED BY: Salbador Palacios [employer] January 13, 2022 2:50 PM documented in this encounter [facility] 12-29-2021 Miscellaneous Notes PLAN: initial OV 12/03/21 Suggest: - XR - shows facet OA severe and L 4 on L 5 anterior listhesis - MRI thoracic and lumbar - bloodwork - hgba1c, WSr, CRp (all WNL) - after the above are reviewed (she will My Chart Message us) = psych evaluation prior to considering SCS trial Lazarus Johnson MD documented in this encounter [facility] 12-21-2021 Note HNO ID: [id number] Author: Cash Kang RT(R) Service: ? Author Type: Technologist Type: Progress [...] TIME: 1:20 PM PAGER/CONTACT #: [facility] 12-21-2021 History of Present illness Narrative RADIOLOGY SERVICE PROGRESS NOTE DATE OF SERVICE: December 21, 2021 TIME OF SERVICE: 1:20 pm EVENT: EXAM/PROCEDURE NOT COMPLETED - Patient became claustrophobic, reaction was: Moderate. ADDITIONAL EVENT DETAILS: no images acquired for mri t,l-spine SIGNATURE: RT Adele(R) PATIENT NAME: Nato Short DATE: December 21, 2021 TIME: 1:20 PM PAGER/CONTACT #: documented in this encounter [facility] 12-03-2021 Note HNO ID: [id number] Author: RT Elda(Nicky) Service: ? Author Type: [...] IV DATA: Not applicable SIGNED BY: RT Elda(Nicky) December 03, 2021 4:38 PM [facility] 12-03-2021 Note HNO ID: [id number] Author: Lazarus Johnson MD Service: ? Author Type: Physician Type: Progress Notes Filed: 12/14/2021 9:39 AM Note Text: SUBJECTIVE: Ms. Short a 51 year old female referred by Self Referred presents with the complaint of low back pain. She wants to know if she is a candidate for SCS (saw [employer] website). Patient reports the date of onset [...] supervised home exercise program (HEP): No 5. Compensation Programs Manager: No Passive conservative therapy lasting 6 weeks in the last six months (see below) 1. Medical devises: No 2. Acupuncture: No 3. Tens unit: No 4. Prescription pain medication: No 5. 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 EXAMINATION: [id number]: Scoliosis: No Pelvic Tilt: No Leg Length [...] s (more content not included)... [facility] 12-03-2021 History of Present illness Narrative [...] 2021 4:38 PM documented in this encounter [facility] 12-03-2021 History of Present illness Narrative SUBJECTIVE: Ms. Short a 51 year old female referred by Self Referred presents with the complaint of low back pain. She wants to know if she is a candidate for SCS (saw [employer] website). Patient reports the date of onset [...] supervised home exercise program (HEP): No 5. Compensation Programs Manager: No Passive conservative therapy lasting 6 weeks in the last six months (see below) 1. Medical devises: No 2. Acupuncture: No 3. Tens unit: No 4. Prescription pain medication: No 5. 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 EXAMINATION: [id number]: Scoliosis: No Pelvic Tilt: No Leg Length [...] DDD. She has seen Dr. Montero in [place] - with no improvement after LESI and radiof frequency with no effect. Has had PT different series since 2017. She saw Dr. Hidalgo in [place] who referred to Dr. Perez because of [...] which included preparing to see the patient, [id number] patient care, completing clinical documentation, obtaining and/or reviewing separately obtained history, performing a medically appropriate examination, counseling and educating the patient/family/caregiver, ordering medications, tests, or procedures, communicating with other HCPs (not separately reported) and independently interpreting results (not separately reported). Lazarus Johnson MD documented in this encounter [facility] 12-02-2021 Miscellaneous Notes Patient was advised of the following: This is a follow up phone call regarding your appointment with Dr Johnson, which you are scheduled to see at [facility] on 12/03/2021 1) Have you been evaluated [...] need to reschedule please call us at [phone]. Left VM with new patient policy advised tpo call office with any questions or concerns'Keren Rosales MA documented in this encounter [facility] 11-19-2021 Note PROCEDURE: XR FOOT L T [...] by: ZACH PEREZ Date: 2021-11-19 16:[address] [facility] Evaluation note Diagnosis Degeneration of lumbar or lumbosacral intervertebral disc- Primary Radiculopathy of lumbar region Thoracic or lumbosacral neuritis or radiculitis, unspecified Radicular pain of left lower extremity Thoracic or lumbosacral neuritis or radiculitis, unspecified Discogenic low back pain Lumbago Hyperglycemia Other abnormal glucose History of fusion of cervical spine Arthrodesis status [facility] Diagnosis Radiculopathy of lumbar region- Primary Thoracic or lumbosacral neuritis or radiculitis, unspecified Lumbar disc herniation Displacement of lumbar intervertebral disc without myelopathy documented in this encounter [facility] note* Diagnosis Lumbar disc herniation- Primary Displacement [...] spine Arthrodesis status [facility] Diagnosis Radiculopathy of lumbar region Thoracic or lumbosacral neuritis or radiculitis, unspecified Degeneration of lumbar or lumbosacral intervertebral disc Radicular pain of left lower extremity Thoracic or lumbosacral neuritis or radiculitis, unspecified Discogenic low back pain Lumbago documented in this encounter [facility] for referral (narrative)* Diagnostic Procedure Only (Routine) - Closed Specialty Diagnoses / Procedures Referred By Contac t Referred To Contact XR IMAGING Diagnoses Radiculopathy of lumbar region Degeneration of lumbar or lumbosacral intervertebral disc Radicular pain of left lower extremity Discogenic low back pain Procedures XR LUMBAR GENERAL 3V AP/LAT/L5-S1 RADEX SPINE LUMBOSACRAL 2/3 VIEWS Lazarus Johnson MD [address] [place] [address] Xr Imaging Referral ID Status Reason Start Date Expiration Date V isits Requested Visits Authorized [id number] Closed Auto-Generate d Referral 12/03/2021 01/02/2023 1 1 [facility] Summary Purpose Family History No Family History [...] W/O CONTRAST MATERIAL Lazarus Johnson MD [address] [place] [address] Mr Imaging Referral ID Status Reason Start Date Expiration Date Visits Requested Visits Authorized [id number] Authorized Auto-Generat ed Referral 12/03/2021 12/21/2021 1 1 Specialty Diagnoses / Procedures Referred By Contac t Referred To Contact MR IMAGING Diagnoses Radiculopathy of lumbar region Procedures MRI THORACIC SPINE WO IVCON MRI SPINAL CANAL THORACIC W/O CONTRAST MATRL Lazarus Johnson MD [address] [place] [address] Mr Imaging Referral ID Status Reason Start Date Expiration Date Visits Requested Visits Authorized [id number] Authorized Auto-Generat ed Referral 12/03/2021 12/21/2021 1 1 Specialty Diagnoses / Procedures Referred By Contac t Referred To Contact XR IMAGING Diagnoses Radiculopathy of lumbar region Degeneration of lumbar or lumbosacral intervertebral disc Radicular pain of left lower extremity Discogenic low back pain Procedures XR LUMBAR GENERAL 3V AP/LAT/L5-S1 RADEX SPINE LUMBOSACRAL 2/3 VIEWS Lazarus Johnson MD [address] [place] [address] Xr Imaging Referral ID Status Reason Start Date Expiration Date V isits Requested Visits Authorized [id number] Closed Auto-Generate d Referral 12/03/2021 01/02/2023 1 1 Specialty Diagnoses / Procedures Referred By Contac t Referred To Contact Diagnoses Radiculopathy of lumbar region Lumbar disc herniation Procedures CONSULT TO SPINE SURGERY OFFICE/OUTPATIENT [facility] [facility] MDM 60-74 MINUTES Lindy Gunderson PA-C [address] [place] [address] Referral ID Status Reason Start Date Expiration Date Visits Requested Visits Authorized [id number] Authorized PCP Requested Referral 01/14/2022 01/14/2023 1 1 Additional Source Comments INFORMATION SOURCE (unrecogn ized section and content) DATE CREATED AUTHOR 10/22/2020 [facility] DATE CREATED AUTHOR AUTHOR'S ORGANIZ ATION 01/29/2022 [facility] DATE CREATED AUTHOR AUTHOR'S ORGANIZ ATION 03/04/2022 [facility] DATE CREATED AUTHOR AUTHOR'S ORGANIZ ATION 07/21/2022 [facility] DATE CREATED AUTHOR AUTHOR'S ORGANIZ ATION [facility]20[facility] DATE CREATED AUTHOR AUTHOR'S ORGANIZ ATION 03/15/2023 [facility] DATE CREATED AUTHOR AUTHOR'S ORGANIZ ATION 09/06/2023 [facility] EPIC Source Comments (unrecognize d section and content) In the event this informatio n is protected by the Federal Confidentiality of Alcohol and Drug Abuse Patient Records regulations: The Federal rules restrict any use of the information to criminally investigate or prosecute any alcohol or drug abuse patient.[facility] the event this information is protected by the Federal Confidentiality of Alcohol and Drug Abuse Patient Records regulations: The Federal rules restrict any use of the information to criminally investigate or prosecute any alcohol or drug abuse patient.[facility] the event this information is protected by the Federal Confidentiality of Alcohol and Drug Abuse Patient Records regulations: The Federal rules restrict any use of the information to criminally investigate or prosecute any alcohol or drug abuse patient.[facility] the event this information is protected by the Federal Confidentiality of Alcohol and Drug Abuse Patient Records regulations: The Federal rules restrict any use of the information to criminally investigate or prosecute any alcohol or drug abuse patient.[facility] the event this information is protected by the Federal Confidentiality of Alcohol and Drug Abuse Patient Records regulations: The Federal rules restrict any use of the information to criminally investigate or prosecute any alcohol or drug abuse patient.[facility] the event this information is protected by the Federal Confidentiality of Alcohol and Drug Abuse Patient Records regulations: The Federal rules restrict any use of the information to criminally investigate or prosecute any alcohol or drug abuse patient.[facility] the event this information is protected by the Federal Confidentiality of Alcohol and Drug Abuse Patient Records regulations: The Federal rules restrict any use of the information to criminally investigate or prosecute any alcohol or drug abuse patient.[facility] the event this information is protected by the Federal Confidentiality of Alcohol and Drug Abuse Patient Records regulations: The Federal rules restrict any use of the information to criminally investigate or prosecute any alcohol or drug abuse patient.[facility] the event this information is protected by the Federal Confidentiality of Alcohol and Drug Abuse Patient Records regulations: The Federal rules restrict any use of the information to criminally investigate or prosecute any alcohol or drug abuse patient.[facility] the event this information is protected by the Federal Confidentiality of Alcohol and Drug Abuse Patient Records regulations: The Federal rules restrict any use of the information to criminally investigate or prosecute any alcohol or drug abuse patient.[facility] the event this information is protected by the Federal Confidentiality of Alcohol and Drug Abuse Patient Records regulations: The Federal rules restrict any use of the information to criminally investigate or prosecute any alcohol or drug abuse patient.[facility] the event this information is protected by the Federal Confidentiality of Alcohol and Drug Abuse Patient Records regulations: The Federal rules restrict any use of the information to criminally investigate or prosecute any alcohol or drug abuse patient.[facility] the event this information is protected by the Federal Confidentiality of Alcohol and Drug Abuse Patient Records regulations: The Federal rules restrict any use of the information to criminally investigate or prosecute any alcohol or drug abuse patient.[facility] Reason for Visit (unrecogniz ed section and content) Reason Comments Radiology MRI Specialty Diagnoses / Procedures Referred By Contac t Referred To Contact MR IMAGING Diagnoses Radiculopathy of lumbar region Procedures MRI THORACIC SPINE WO IVCON MRI SPINAL CANAL THORACIC W/O CONTRAST MATRL Lazarus Johnson MD [address] [place] [address] [place] [address] Referral ID Status Reason Start Date Expiration Date V isits Requested Visits Authorized [id number] Closed Auto-Generate d Referral 12/23/2021 06/26/2022 1 [...] LUMBOSACRAL 2/3 VIEWS Lazarus Johnson MD [address] [place] [address] Xr Imaging Referral ID Status Reason Start Date Expiration Date V isits Requested Visits Authorized [id number] Closed Auto-Generate d Referral 12/03/2021 01/02/2023 1 [...] BE BASED ON THE PRIMARY CLINICAL RECORDS. [employer] provides no warranty or guarantee of the accuracy or completeness of information in this document.
[2023-12-12 09:51] LABS: Free T4 0.52 ng/dL (0.76-1.46)
[2023-12-12 09:52] LABS: Alanine Aminotransferase 20 U/L (14-59); Aspartate Amino Transferase 15 U/L (15-37); Chol HDL Ratio 5.1; Cholesterol 291 mg/dL (<=200); HDL Cholesterol 57 mg/dL (40-60); Thyroid Stimulating Hormone 91.381 uIU/mL (0.358-3.740); Triglycerides 222 mg/dL (<=150); VLDL CHOLESTEROL 44.4 mg/dL
== END 2023-12-12 08:16 | disposition home or self-care (01) ==
LOC: LAB 08:19
PROVIDERS: PCP Nurse Practitioner; Visit Provider Nurse Practitioner
DX: E78.2 Mixed hyperlipidemia (principal); E03.9 Hypothyroidism, unspecified
CPT/HCPCS: 36415; 80061; 84439; 84443; 84450; 84460

== ENCOUNTER 2023-12-12 16:53 | Outpatient (OUT) | payer OTHER, SELFPAY ==
--- OUTSIDE RECORDS SUMMARY | 2023-12-12 17:07 | XMS_ITS ---
Patient Summarization (C-CDA 2.1 CCD) Created on: December 12, 2023 NATO SHORT : 1970 Sex: Female Author Organization Sample organization Care Team Providers Care Cane Pusher Name Role Phone Unavailable Primary Care Provider Unavailabl e AICHHOLZ, SECURITY INVESTIGATOR WHIT Consulting Unavailable AICHHOLZ, SECURITY INVESTIGATOR WHIT Attending Unavailable AICHHOLZ, SECURITY INVESTIGATOR WHIT Admitting Unavailable AICHHOLZ, SECURITY INVESTIGATOR WHIT Primary Care Unavailable AICHHOLZ, SECURITY INVESTIGATOR WHIT Admitting Unavailable AICHHOLZ, SECURITY INVESTIGATOR WHIT Primary Care Unavailable AICHHOLZ, SECURITY INVESTIGATOR WHIT Consulting Unavailable AICHHOLZ, SECURITY INVESTIGATOR WHIT Attending Unavailable AICHHOLZ, SECURITY INVESTIGATOR WHIT Admitting Unavailable AICHHOLZ, SECURITY INVESTIGATOR WHIT Primary Care Unavailable AICHHOLZ, SECURITY INVESTIGATOR WHIT Attending Unavailable EWELINA, DR NAOMIE Du Consulting Unavailable AICHHOLZ, SECURITY INVESTIGATOR WHIT Consulting Unavailable JAYASHREE, DR DONATO Admitting Unavailable AICHHOLZ, SECURITY INVESTIGATOR WHIT Primary Care Unavailable MISC, DR DONATO Attending Unavailable AICHHOLZ, SECURITY INVESTIGATOR WHIT Admitting Unavailable AICHHOLZ, SECURITY INVESTIGATOR WHIT Primary Care Unavailable AICHHOLZ, SECURITY INVESTIGATOR WHIT Attending Unavailable AICHHOLZ, SECURITY INVESTIGATOR WHIT Primary Care Unavailable DR SILVINA SMITH Attending Unavailable DR SILVINA SMITH Admitting Unavailable DR NAOMIE THEODORE V Consulting Unavailable DR SILVINA SMITH Consulting Unavailable HEIDI MEJIAS Consulting Unavailable Naomie Velasquez Consulting Unavailable SISTER, TE Consulting Unavailable AICHHOLZ, SECURITY INVESTIGATOR WHIT Primary Care Unavailable ONEIL LOPEZ Consulting Unavailable ONEIL LOPEZ Attending Unavailable ONEIL LOPEZ Admitting Unavailable Naomie Velasquez Consulting Unavailable JAVAD, DR MATHIAS Attending Unavailable DR MEY FARNSWORTH Admitting Unavailable AICHHOLZ, SECURITY INVESTIGATOR WHIT Primary Care Unavailable DR MEY FARNSWORTH Consulting Unavailable AICHHOLZ, SECURITY INVESTIGATOR WHIT Primary Care Unavailable DR LANDEN GONZALEZ Consulting Unavailable DIOGENES MILLER Attending Unavailable DIOGENES MILLER Admitting Unavailable ZIA DESAI Consulting Unavailable AICHHOLZ, SECURITY INVESTIGATOR WHIT Admitting Unavailable AICHHOLZ, SECURITY INVESTIGATOR WHIT Consulting Unavailable AICHHOLZ, SECURITY INVESTIGATOR WHIT Attending Unavailable MACK GUAMAN Primary Care Unavailable Naomie Velasquez Consulting Unavailable AICHHOLZ, SECURITY INVESTIGATOR WHIT Primary Care Unavailable LING GAMING Attending Unavailable LING GAMING Admitting Unavailable DR ZACH PEREZ Consulting Unavailable AMBERLYLING Consulting Unavailable AICHHOLZ, SECURITY INVESTIGATOR WHIT Admitting Unavailable AICHHOLZ, SECURITY INVESTIGATOR WHIT Primary Care Unavailable AICHHOLZ, SECURITY INVESTIGATOR WHIT Attending Unavailable AICHHOLZ, SECURITY INVESTIGATOR WHIT Primary Care Unavailable AICHHOLZ, SECURITY INVESTIGATOR WHIT Admitting Unavailable AICHHOLZ, SECURITY INVESTIGATOR WHIT Consulting Unavailable AICHHOLZ, SECURITY INVESTIGATOR WHIT Attending Unavailable Unavailable Primary Care Provider Unavailabl e AICHHOLZ, WHIT J. Primary Care Unavailable [...] sources) Penicillins; Translations: [PENICILLINS] Drug Allergy 04-11-2013 [facility] (11 sources) Penicillins Drug Allergy 04-11-2013 [facility] (2 sources) Penicillins Drug allergy (disorder) 04-11-2013 [facility] Repository (1 source) Chlorhexidine; Translations: [CHLORHEXIDINE GLUCONATE] Drug Allergy 04-21-2022 [facility] Repository Encounters Encounter Date Encounter Type Care Provider Facility Start: 09-05-2023 End: 09-05-2023 ambulatory WHIT DOEDAMONElvis Not Available Start: 05-24-2023 End: 05-24-2023 ambulatory WHIT DOEDAMONElvis Not Available Start: 03-14-2023 End: 03-15-2023 ambulatory [facility] Start: 03-10-2023 End: 03-10-2023 ambulatory [facility] Start: 02-10-2023 End: 02-13-2023 ambulatory WHIT Olivier MALCOLM [facility] Start: 10-07-2022 End: 10-07-2022 ambulatory [facility] Start: 07-15-2022 End: 07-15-2022 ambulatory NATACHA WHIT MALCOLM Facility:H1 Start: 07-08-2022 End: 07-08-2022 ambulatory [facility] Start: 06-16-2022 ambulatory [facility] Start: 06-04-2022 End: 06-04-2022 ambulatory [facility] Start: 05-30-2022 End: 05-30-[address] MEY FARNSWORTH Facility:H1 Start: 05-19-2022 End: 05-19-2022 ambulatory [facility] Start: 04-30-2022 Evaluation and manag ement of inpatient [facility] Start: 04-29-2022 End: 04-30-2022 Evaluation and management of inpatient [facility] Start: 04-29-2022 End: 05-04-2022 Evaluation and management of inpatient [facility] Start: 04-27-2022 End: 04-27-2022 ambulatory [facility] Start: 04-21-2022 End: 04-21-2022 ambulatory [facility] Start: 04-21-2022 End: 04-21-2022 Encounter for other preprocedural examination NATACHA FOWLER [facility] Start: 04-21-2022 End: 04-21-2022 ambulatory [facility] Start: 04-20-2022 ambulatory NATACHA FOWLER Facil ity:H1 Start: 04-16-2022 End: 04-17-2022 ambulatory NATACHA FOLWER Facility:H1 Start: 04-16-2022 End: 04-17-2022 Encounter for other preprocedural examination NATACHA FOWLER Facility:H1 Start: 04-07-2022 End: 04-07-2022 ambulatory [facility] Start: 03-24-2022 End: 03-24-2022 ambulatory [facility] Start: 03-08-2022 End: 03-09-2022 ambulatory NATACHA [...] 01-13-2022 Subsequent hospital visit by physician Mri [facility] (Lg Bore/1.5t) Radiology MRI Comment on above: Radiculopathy of lum bar region [M54.16] Start: 12-29-2021 ambulatory Lazarus spain MD Work Phone: Pain Management Comment on above: Pain Start: 12-22-2021 ambulatory Lazarus spain MD Work Phone: Pain Management Comment on above: Question regarding C -REACTIVE PROTEIN (CRP) Start: 12-21-2021 ambulatory Cash Kang RT(R) diolizabel Comment on above: Radiology MRI Start: 12-21-2021 Patient encounter procedure Cash Kang RT(R) JACQUI BEDOYA Start: 12-11-2021 ambulatory NATACHA FOWLER Facil ity:H1 Start: 12-03-2021 End: 12-03-2021 Subsequent hospital visit by physician Xr [facility] Comment on above: Radiculopathy of lum [...] masterson) Start: 11-19-2021 End: 11-20-2021 ambulatory NATACHA DOEDAMONElvis Facility:H1 Start: 11-12-2021 End: 11-13-2021 ambulatory SECURITY INVESTIGATOR WHIT FOWLER Facility:H1 Start: 07-23-2021 End: 07-24-2021 ambulatory NATACHA FOWLER Facility:H1 Immunizations Immunization Date Immunization Notes Care Provider Lorena lugo 04-24-2009 influenza virus vacc ine, unspecified formulation Mri Bore/1.5t) [facility] Medications Completed/Discontinued Medications Medication Drug Class(es) Dates Sig (Normalized) Sig (Original) [id number] 200 actuat albuterol 0.09 mg/actuat metered dose [...] tablet by isaak th daily at bedtime. Payers Date Payer Category Payer Private Health Insurance [id number] 2021 Unknown [employer] PPO OOS [id number] 2021-Present [phone] [address] [place] [address] PPO [id number] 2021 Unknown [employer] PPO OOS [id number] 2021-Present [phone] [address] [place] [address] PPO [id number] 2020 Medicaid [employer] MEDICAID [id number] 2020-Present [phone] [address] [place] [address] Medicaid [id number] 2020 Medicaid [id number] 1970 Unknown [id number] .840.1.360282.3.579.2. 593 1970 Unknown [id number] .840.1.658317.3.579.2. 593 1970 Unknown [id number] .840.1.916255.3.579.2. 593 1970 Unknown [id number] .840.1.677657.3.579.2. 593 1970 Unknown [id number] .840.1.973950.3.579.2. 593 1970 Unknown [id number] .16840.1.230302.3.579.2. 593 1970 Unknown [id number] .840.1.163625.3.579.2. 593 1970 Unknown [id number] 2.16.840.1.232778.3.579.2. 593 1970 Unknown [id number] 2.16.840.1.357326.3.579.2. 593 1970 Unknown [id number] 2.16.840.1.007326.3.579.2. 593 1970 Unknown [id number] 2.16.840.1.078839.3.579.2. 593 1970 Unknown [id number] 2.16.840.1.757311.3.579.2. 593 1970 Unknown [id number] 2.16.840.1.358615.3.579.2. 593 1970 Unknown [id number] 2.16.840.1.534645.3.579.2. 173 1970 Unknown [id number] 2.16.840.1.939507.3.579.2. 1259 1970 Unknown [id number] 2.16.840.1.570620.3.579.2. 1259 1959 Self-pay [id number] 1959 Unknown [id number] 1959 Unknown [id number] 1959 Unknown [id number] Unknown [id number] Plan of Treatment Date Care Activity Detail Author Start: 12-03-2024 [facility]ABET[facility]EN [facility] Start: 12-03-2024 Diabetes Screening Diabetes Screentiffanie irene [facility] Start: 02-25-2023 Influenza vaccination [facility] Start: 06-27-2022 DEPRESSION ASSESSMENT DEPRESSION ASS ESSMENT [facility] Start: 02-25-2022 Influenza vaccination C [facility] Start: 01-26-2022 End: 03-28-2022 Basic metabolic 2000 panel - Serum or Plasma BASIC METABOLIC PNL Lab Routine Lumbar disc herniation Radiculopathy of lumbar region Expected: 01/26/2022, Expires: 03/28/2022 [facility] Work Phone: Comment on above: Expected: 01/26/2022 , Expires: 03/28/2022 Start: 2020 SHINGRIX VACCINE (1 of 2) SHINGRIX VACCINE (1 of 2) [facility] Start: 2015 COLOGUARD (FIT-DNA) COLOGUARD (FIT-D NA) [facility] Start: 2015 Colonoscopy COLONOSCOPY [facility] Start: 2015 COLORECTAL CANCER SCREENING COLORECTAL CANCER SCREENING [facility] Start: [address] COLONOGRAPHY [facility] Start: 2015 DIABETES SCREEN DIABETES SCREEN [facility] Start: 2015 FECAL OCCULT BLOOD FECAL OCCULT BLOO D [facility] Start: 2015 Lipid 1996 panel - S bunny or Plasma Lipid Screening [facility] Start: 2015 LIPID SCREEN LIPID SCREEN [facility] Start: [address] [facility] Start: 2010 Mammography [facility] Start: 2000 HPV TESTING HPV TESTING [facility] Start: 1991 PAP TESTING PAP TESTING [facility] Start: 1989 Urine microalbumin profile [facility] Start: 1988 HEPATITIS C SCREENING HEPATITIS C SC REENING [facility] Start: 1988 HIV SCREENING HIV SCREENING [facility] Start: 1982 Adult depression screening assessment DEPRESSION SCREENING [facility] Start: 1976 PNEUMOCOCCAL (1 - PCV) PNEUMOCOCCAL (1 - PCV) [facility] Start: 1976 Pneumococcal vaccination Pneum ococcal Vaccine (1 - PCV) [facility] Start: 1975 COVID-19 VACCINE (#1) COVID-19 VACCI NE (#1) [facility] Start: 02-18-1971 COVID-19 VACCINE (#1) COVID-19 VACCI NE (#1) [facility] Start: 1970 HEPATITIS B (1 of 3 - 3-dose series) HEPATITIS B (1 of 3 - 3-dose series) [facility] Start: 1970 Hepatitis B Vaccine (1 of 3 - 3-dose series) Hepatitis B Vaccine (1 of 3 - 3-dose series) [facility] End: 01-02-2023 Mri spinal canal lumbar w/o contrast material MRI LUMBAR SPINE WO IVCON Radiology Routine Radiculopathy of lumbar region 1 Occurrences starting 12/03/2021 until 01/02/2023 [facility] Work Phone: Comment on above: 1 Occurrences starti ng 12/03/2021 until 01/02/2023 End: 01-02-2023 Mri spinal canal thoracic w/o contrast matrl MRI THORACIC SPINE WO IVCON Radiology Routine Radiculopathy of lumbar region 1 Occurrences starting 12/03/2021 until 01/02/2023 [facility] Work Phone: Comment on above: 1 Occurrences starti ng 12/03/2021 until 01/02/2023 [facility] Problems Active Problems Problem Classification Problem Date [...] care phlebotomist (current) drug therapy; Translations: [OTH AGRICULTURAL RESEARCHER CURRENT DRUG THERAPY] Onset: 05-31-2022 Episodic Other [...] Translations: [LOW BACK PAIN, UNSPECIFIED] Onset: 02-03-2022 Procedures Date Procedure Procedure Detail Performing Clinician Start: 01-13-2022 Mri spinal canal tho jane w/o contrast matrl Lazarus Johnson MD Work Phone: Start: 12-03-2021 Radex spine lumbosac ral 2/3 views Lazarus Johnson MD Work Phone: Results Test Name Value Interpretation Reference Range Facility Follow-Upon 03-10-2023 Follow-Up [id number] Nato Short 1970 F Date Provider Department Center 03/10/2023 Chucky-DILLAN NEWBY NWO ORTHO [facility] Family History Family history unknown: Yes Level of Service:28047 CO OFFICE/OUTPATIENT ESTABLISHED MOD MDM 30-39 MIN Normal [facility] CT CERVICAL SPINE WO CONTRAS Ton [...] Maddie Simpson MD 02/13/23 Final result Normal [facility] 11-07-2022 Refill [id number] Nato Short 1970 F Date Provider Department Center 11/07/2022 DILLAN CRANE MP Family History Family history unknown: Yes Reason for Visit and Comments: Med Refill [[id number]] [facility] 29on 11-05-2022 29 Addended by: MASON DOUGLAS on: 11/05/2022 09:46 AM Modules accepted: Orders [facility] 36on 11-01-2022 36 Requesting refill of Fioricet... This is not something you typically prescribe, are you okay to continue filling or refer to PCP? She is taking for ongoing headaches. Last visit 10/07/22 [facility] Refill [id number] Nato Short 1970 F Date Provider Department Center 10/31/2022 DILLAN CRANE MP Family History Family history unknown: Yes Reason for Visit and Comments: Med Refill [[id number]] [facility] 36on 10-22-2022 36 Please advise refill request. [facility] Refillon 10-22-2022 Refill [id number] PhilipNato 1970 F Date Provider Department Center 10/22/2022 266-ELIDLLAN MASSEY MP [facility]TH[facility] Family History Family history unknown: Yes Reason for Visit and Comments: Med Refill [[id number]] [facility] Patient Messageon 10-10-2022 Patient Message [id number] Ar Shorta 1970 F Date Provider Department Center 10/10/2022 266-ELGAFY DILLAN NWO [facility] Family History Family history unknown: Yes [facility] Refillon 10-09-2022 Refill [id number] PhilipNato 1970 F Date Provider Department [place] 10/09/2022 266-DILLAN NEWBY ORTHO [facility] Family History Family history unknown: Yes Reason for Visit and Comments: Med Refill [[id number]] [facility] 36on 10-08-2022 36 Fioricet ordered to patient's pharmacy and she was informed. [facility] 36on 10-07-2022 36 Pt was seen in [facility] today and is awaiting CT for further plan. She would like to know if there is anything that can be prescribed for the headaches? Please advise. [facility] Follow-Upon 10-07-2022 Follow-Up [id number] Nato Short 1970 F Date Provider Department [place] 10/07/2022 266-ELGAFY, DILLAN NWO [facility] Family History Family history unknown: Yes Level of Service:64891 CO OFFICE/OUTPATIENT ESTABLISHED LOW MDM 20-29 MIN [facility] 36on 09-20-2022 36 Please advise refill request. [facility] Refillon 09-20-2022 Refill [id number] Nato Short 1970 F Date Provider Department Center 09/20/2022 266-ELGAFY, DILLAN NWO [facility] Family History Family history unknown: Yes Reason for Visit and Comments: Med Refill [[id number]] [facility] 08-23-2022 36 Please advise refill request. [facility] Refillon 08-23-2022 Refill [id number] PhilipNato 1970 F Date Provider Department Center 08/23/[address] [facility] Family History Family history unknown: Yes Reason for Visit and Comments: Med Refill [[id number]] [facility] Letter (Out)on 08-09-2022 Letter (Out) [id number] PhilipNato 1970 F Date Provider Department Center 08/09/[address] [facility] Family History Family history unknown: Yes [facility] 36on 08-06-2022 36 Please advise refill request. [facility] Refillon 08-06-2022 Refill [id number] PhilipNato 1970 F Date Provider Department Center 08/06/[address] [facility] Family History Family history unknown: Yes Reason for Visit and Comments: Med Refill [[id number]] [facility] on 07-29-2022 36 Letter sent through Plated to patient and patient was informed. [facility] 07-28-2022 36 Pt called stating th at she [...] can gradually start back to work slowly? [facility] 36 Ok to write new taisha er, per Dr. Newby. [facility] SARS-CoV-2 (COVID-19) RNA RENÉ+probe Ql (Unsp spec) Not detected Normal NOT DETECTED [facility] Comment on above: Result Comment: This test is not yet approved or cleared by the [place] FDA. When there are no FDA-approved or cleared tests available, and other criteria are met, FDA can make tests available under an emergency access mechanism called an Emergency Use Authorization (EUA). The EUA for this test is supported by the Can Tender of Health and Human Service's (HHS's) declaration [...] consistent with SARS-CoV-2. Performed By: #### C VDTB #### [facility] [address] [place] [address] Dr. Radha Suarez INFLUENZA A AND B [facility] 07-15 [facility] SEE BELOW Normal [facility] Comment on above: Result Comment: Nega tive for Flu A protein angiten. Infection due to Flu A cannot be ruled out. Flu A angiten in the sample may be below the detection limit of the test. Performed By: #### C VDTBH #### [facility] [address] [place] [address] Dr. [facility] SEE BELOW Normal [facility] Comment on above: Result Comment: Nega tive for Flu B protein antigen. Infection due to Flu B cannot be ruled out. Flu B antigen in the sample may be below the detection limit of the test. Performed By: #### C VDTBH #### [facility] [address] [place] [address] Dr. Radha Suarez INFLUENZA A AG Negative Normal NEGATIVE SEE COMMENT [facility] Comment on above: Performed By: #### C VDTBH #### [facility] [address] [place] [address] Dr. Radha Suarez INFLUENZA B AG Negative Normal NEGATIVE SEE COMMENT [facility] Comment on above: Performed By: #### [facility] #### [facility] [address] [address] [address] Radha Suarez Office Visiton 07-08-2022 Follow-up visit [id number] Nato Short 1970 F Date Provider Department Center 07/08/[address] [facility] Family History Family history unknown: Yes Level of Service:88364 CO POSTOP FOLLOW UP VISIT RELATED TO ORIGINAL PX [facility] 36on 07-05-2022 36 Please advise refill request. [facility] Refillon 07-05-2022 Refill [id number] Nato Short 1970 F Date Provider Department Center 07/05/2022 DILLAN CRANE MP ORTHO [facility] Family History Family history unknown: Yes Reason for Visit and Comments: Med Refill [[id number]] [facility] 36on 06-25-2022 36 Please advise refill request. [facility] 36 Patient just filled 2 weeks ago same prescription [facility] 36 Pt was informed. She will call the pharmacy that this was already refilled and most likely on hold. [facility] Follow-Upon 06-16-2022 Follow-Up [id number] Nato Short 1970 F Date Provider Department Center 06/16/2022 REKHA SOMERS MP ORTHO [facility] Family History Family history unknown: Yes Level of Service:62124 CO POSTOP FOLLOW UP VISIT RELATED TO ORIGINAL PX Reason for Visit and Comments: Post-op [483] [facility] 36on 06-12-2022 36 Please advise refill request. [facility] Refillon 06-12-2022 Refill [id number] Nato Short 1970 F Date Provider Department Center 06/12/2022 DILLAN CRANE MP ORTHO [facility] No family history on file Reason for Visit and Comments: Med Refill [[id number]] [facility] 36on 06-09-2022 36 Pt called with yeast infection with taking the antibiotics for postsurgical wound. Diflucan ordered to patient's pharmacy, per Dr. Newby. Pt was informed. [facility] Refillon 06-07-2022 Refill [id number] Nato Short 1970 F Date Provider Department [place] 06/07/2022 DILLAN CRANE MP ORTHO MPORTHO No family history on file Reason for Visit and Comments: Med Refill [[id number]] [facility] Office Visiton 06-04-2022 Follow-up visit [id number] Nato Short 1970 F Date Provider Department [place] 06/04/2022 DILLAN CRANE MP ORTHO [facility]THO No family history on file Level of Service:65927 CO POSTOP FOLLOW UP VISIT RELATED TO ORIGINAL PX Reason for Visit and Comments: Follow-up [[id number]] - Wound check [facility] CULTURE WOUNDon 06-01-2022 CULTURE WOUND Isolate 1 Pseudomonas aeruginosa Light growth of ORGANISM 1 Pseudomonas aeruginosa ANTIBIOTIC M.I.C RX STATUS Piperacillin/Tazobactam <=4 S F Ceftazidime <=1 S F Imipenem 1 S F Amikacin 4 S F Gentamicin <=1 S F Tobramycin <=1 S F Ciprofloxacin <=0.25 S F Levofloxacin <=0.12 S F Normal [facility] Comment on above: Performed By: #### [facility] #### [facility] [address] [place] [address] Dr. Radha Suarez 36on 05-31-2022 36 Please advise refill request. [facility] Refillon 05-31-2022 Refill [id number] Nato Short 1970 F Date Provider Department Center 05/31/2022 DILLAN CRANE MP ORTHO MPORTHO No family history on file Reason for Visit and Comments: Med Refill [[id number]] [facility] 36on 05-25-2022 36 Please advise refill request. [facility] Refillon 05-25-2022 Refill [id number] Ar Shorta 1970 F Date Provider Department [place] 05/25/2022 DILLAN CRANE MP ORTHO MPORTHO No family history on file Reason for Visit and Comments: Med Refill [[id number]] [facility] Office Visiton 05-19-2022 Follow-up visit [id number] PhilipAr neumanna 1970 F Date Provider Department [place] 05/19/2022 DILLAN CRANE MP ORTHO MPORTHO No family history on file Level of Service:08129 CO POSTOP FOLLOW UP VISIT RELATED TO ORIGINAL PX Reason for Visit and Comments: Post-op [483] - L4-5 decompression /fusion [facility] 36on 05-17-2022 36 Please advise refill request. [facility] 36 Please advise refill request. [facility] 36 Duplicate request. [facility] Refillo 05-17-2022 Refill [id number] Ar Shorta 1970 F Date Provider Department [place] 05/17/2022 DILLAN CRANE MP ORTHO MPORTHO No family history on file Reason for Visit and Comments: Med Refill [[id number]] [facility] Refillon 05-15-2022 Refill [id number] Ar Sohrta 1970 F Date Provider Department [place] 05/15/2022 DILLAN CRANE MP ORTHO MPORTHO No family history on file Reason for Visit and Comments: Med Refill [[id number]] [facility] 36on 05-06-2022 36 Pt may run out of medications over the weekend. Please advise refill request. [facility] Refillon 05-06-2022 Refill [id number] Ar Shorta 1970 F Date Provider Department [place] 05/06/2022 DILLAN CRANE MP ORTHO MPORTHO No family history on file Reason for Visit and Comments: Med Refill [[id number]] [facility] [facility] DSon 05-04-2022 DS Admission Admitted 04/29/2022 for [...] mouth in the morning. ergocalciferol 1.25 MG (51132 Units) capsule Commonly known as: Vitamin D-2 [...] MCG (1000 units) tablet ergocalciferol 1.25 MG (46207 Units) capsule ondansetron ODT 4 mg disintegrating [...] Center 05/12/2022 9:50 AM Dillan Newby MD ORTHO MPORTHO Test Results Pending At Discharge [facility] NURSNOTEon 05-04-2022 NURSNOTE Pt upset related to pre-cert for SNF .Nato Short reports she is post-op day 5 and does have help at home ,also reports surgeon expressed that she is not able to have aggressive therapy for 6-8 weeks.She has used [facility] in the past and would like to discharge home with home care .Message left for SS. Ortho aware ,order implemented per Ortho for Home Health Care . Daughter notified and will transport . [facility] 30on 05-03-2022 30 The patient is Moderately Stable - Low risk of patient condition declining or worsening The patient's goals for the shift include comfort The clinical goals for the shift include comfort Normal [facility] BASIC METABOLIC PANELon 11-0 Anion gap [Moles/Vol] 8 mmol/L Normal 7-20 [facility] Comment on above: Performed By: #### L [id number] ####[facility] ([facility])[address] [place] [address] Calcium [Mass/Vol] 7.8 mg/dL Low 8.6-10.3 [facility] Comment on above: Performed By: #### L [id number] ####[facility] ([facility])[address] [facility] [place] [address] Chloride [Moles/Vol] 105 mmol/L Normal 98-107 [facility] Comment on above: Performed By: #### L [id number] ####[facility] ([facility])[address] [place] [address] CO2 [Moles/Vol] 26 mmol/L Normal 21-31 [facility] Comment on above: Performed By: #### L [id number] ####[facility] ([facility])[address] [facility] [place] [address] Creatinine [Mass/Vol] 0.71 mg/dL Normal 0.60-1.20 [facility] Comment on above: Performed By: #### L [id number] ####[facility] ([facility])[address] [facility] [place] [address] GLOMERULAR FILTRATION RATE ML/MIN/1.73 SQ M.PREDICTED 98.9 mL/min/1.73m*2 Normal >60.0 [facility] Comment on above: Result Comment: The [facility]???s estimated glomerular filtration rate (eGFR) will [...] of individuals. Performed By: #### L [id number] ####[facility] ([facility])[address] [place] [address] Glucose [Mass/Vol] 127 mg/dL High 70-100 [facility] Comment on above: Performed By: #### L [id number] ####[facility] ([facility])[address] [place] [address] Potassium [Moles/Vol] 4.2 mmol/L Normal 3.5-5.1 [facility] Comment on above: Performed By: #### L [id number] ####[facility] ([facility])[address] [place] [address] Sodium [Moles/Vol] 139 mmol/L Normal 136-145 [facility] Comment on above: Performed By: #### L [id number] ####[facility] ([facility])[address] [place] [address] Urea nitrogen [Mass/Vol] 9 mg/dL Normal 7-25 [facility] Comment on above: Performed By: #### L [id number] ####[facility] ([facility])[address] [place] [address] UREA NITROGEN/CREATININE (MASS RATIO) IN SER/PLAS 12.68 Normal [facility] Comment on above: Performed By: #### L [id number] ####[facility] ([facility])[address] [place] [address] CBCon 04-30-2022 Erythrocyte distribution width (RBC) [Ratio] 14.8 % Normal 11.5-15.0 [facility] Comment on above: Performed By: #### L [id number] ####[facility] ([facility])[address] [place] [address] ERYTHROCYTE MEAN CORPUSCULAR HEMOGLOBIN CONCENTRATION (G/DL) BY AUTOMATED 32.4 g/dL Normal 32.0-35.0 [facility] Comment on above: Performed By: #### L [id number] ####[facility] (BEAKER)[address] [place] [address] Hematocrit (Bld) [Volume fraction] 34.0 % Low 36.0-48.0 [facility] Comment on above: Performed By: #### L [id number] ####[facility] ([facility])[address] [place] [address] Hemoglobin (Bld) [Mass/Vol] 11.0 g/dL Low 12.0-15.0 [facility] Comment on above: Performed By: #### L [id number] ####[facility] ([facility])[address] [place] [address] MCH (RBC) [Entitic mass] 31.0 pg Normal 27.0-33.0 [facility] Comment on above: Performed By: #### L [id number] ####[facility] ([facility])[address] [place] [address] MCV (RBC) [Entitic vol] 95.8 fL Normal 82.0-98.0 [facility] Comment on above: Performed By: #### L [id number] ####[facility] ([facility])[address] [place] [address] PLATELETS (10*3/UL) IN BLOOD AUTOMATED COUNT 284 10*3/uL Normal 150-400 [facility] Comment on above: Performed By: #### L [id number] ####[facility] ([facility])[address] [place] [address] RBC (Bld) [#/Vol] 3.55 10*6/uL Low 3.80-5.00 [facility] Comment on above: Performed By: #### L [id number] ####[facility] ([facility])[address] [place] [address] WBC (Bld) [#/Vol] 14.08 10*3/uL High 4.00-10.60 [facility] Comment on above: Performed By: #### L [id number] ####[facility] ([facility])[address] [place] [address] HPon 04-29-2022 H&P reviewed. The patient was examined and there are no changes to the H&P. Normal [facility] NURSNOTEon 04-29-2022 NURSNOTE Updated [facility]2022 OPNOTE L4-5 DECOMPRESSION ( L), INSTRUMENTED LUMBAR FUSION (L) Operative Note Date: 04/29/2022 Location: [facility] OR Name: Nato Short, : 1970, Surgeons * Dillan Newby - Primary Transportation Job Titles: Michael Morales M.D. Preoperative Diagnosis: L 4-5 grade I spondylolisthesis with foramina stenosis and L5 radiculopathy (ICD-10 M43.16, M99.53, M54.16). Postoperative Diagnosis: L 4-5 grade I spondylolisthesis with foramina stenosis and L5 radiculopathy (ICD-10 M43.16, M99.53, M54.16). OPERATION: 1. L 4-5posterior lumbar spine decompression (94371). 2. L 4-5 transforaminal lumbar interbody fusion using autograft, crushed cancellous allograft, ViviGen and threaded bone dowel spacer 11 mm and posterolateral fusion using autograft, crushed cancellous allograft and [employer]iGen (42746, 53699). 3. L 4-5 instrumentation using Expedium system from [employer] (94268). 4. Local bone autograft harvesting and use of crush cancellous allograft (74057, 33163). 5. Use of intraoperative fluoroscopy (30501). Procedure Summary Anesthesia: General ASA: III Position: Prone position on the Rashid table in reverse Trendelenburg position. Estimated Blood Loss: 250 mL Total IV Fluids: 1000 mL Drains: Hemovac Closed/Suction Drain Right Back 10 Fr. (Active) Urethral Catheter Non-latex (Active) Implants Type Name Action Serial No. Studio SBV READIGRAFT CANCELLOUS Implanted [id number] Studio SBV VIVGEN Implanted [id number] Studio SBV VIVIGEN 10CC Implanted ID: [id number] expedium 7x40 screws Implanted Screw SETSCREW,INNER,SINGLE - [id number] Implanted expedium 45mm rods Implanted T-PLIF SPACER 11MM Implanted [id number] Staff: Third Loader: Zoey Tellez RN Scrub Person: Cherise Cardona [...] has been seen in preoperative clinic at [facility]. Description of Procedure: The patient was [...] the interverte (more content not included)... Normal [facility] POCT GLUCOSE METER UNSOLICIT ED RESULTSon 04-29-2022 Glucose [Mass/Vol] 105 mg/dL Normal 70-105 [facility] Comment on above: Result Comment: sonia [email or web address] Performed By: #### L [id number] ####[facility] ([facility])[address] [place] [address] POCT SARS-COV-2 PCRon 2021 POC SARS-COV-2 ANTIGEN Negative Normal Negative [facility] Comment on above: Result Comment: ID [...] Certificate of Accreditation. Performed By: #### L [id number] ####[facility] ([facility])[address] [facility] [place] [address] VITAMIN D 25 HYDROXYon 04-29 CALCIDIOL (25 [place] VITAMIN D3) (NG/ML) IN SER/PLAS 9.2 ng/mL Low 30.0-80.0 [facility] Comment on above: Result Comment: >80. 0 Toxicity possible Performed By: #### L [id number] ####[facility] ([facility])[address] [place] [address] Orders Onlyon 04-27-2022 Orders Only [id number] Ar Shorta 1970 F Date Provider Department Center 04/27/2022 [id number], HISTORICAL [facility] [place] [facility] No family history on file [facility] 36on 04-26-2022 36 Pt left voicemail asking if tizanidine can be increased from twice daily to three times daily as needed? Pt was previously getting prescription from PCP. Please advise. Normal [facility] Refillon 04-26-2022 Refill [id number] Nato Short 1970 F Date Provider Department [place] 04/26/2022 DILLAN CRANE MP ORTHO MPORTHO No family history on file [facility] [id number] 04-21-2022 [id number] MEDICATIONS TO TAKE DOS:OMEPRAZOLE, GABAPENTIN,SYNTHROID, XANAFLEX MEDICATIONS TO HOLD: MOBIC X 1 WEEK NPO AFTR MIDNIGHT ONE STAFFING COORDINATOR NEEDS TO ACCOMPANY YOU, DRIVE YOU HOME, AND STAY WITH YOU FOR 24HOURS AFTER THE PROCEDURE. REMOVE ALL JEWELRY AND LEAVE AT HOME DOS Normal [facility] APTTon 04-21-2022 ACTIVATED PARTIAL THROMBOPLASTIN TIME IN PPP BY COAGULATION ASSAY 29.9 Seconds Normal 25.0-35.0 [facility] Comment on above: Performed By: #### L [id number] ####[facility] ([facility])[address] [place] [address] BASIC METABOLIC PANELon 03-28 Anion gap [Moles/Vol] 8 mmol/L Normal 7-20 [facility] Comment on above: Performed By: #### L [id number] ####[facility] ([facility])[address] [place] [address] Calcium [Mass/Vol] 9.5 mg/dL Normal 8.6-10.3 [facility] Comment on above: Performed By: #### L [id number] ####[facility] ([facility])[address] [place] [address] Chloride [Moles/Vol] 102 mmol/L Normal 98-107 [facility] Comment on above: Performed By: #### L [id number] ####[facility] ([facility])[address] [place] [address] CO2 [Moles/Vol] 28 mmol/L Normal 21-31 [facility] Comment on above: Performed By: #### L [id number] ####[facility] ([facility])[address] [place] [address] Creatinine [Mass/Vol] 0.80 mg/dL Normal 0.60-1.20 [facility] Comment on above: Performed By: #### L [id number] ####[facility] ([facility])[address] [place] [address] GLOMERULAR FILTRATION RATE ML/MIN/1.73 SQ M.PREDICTED 85.6 mL/min/1.73m*2 Normal >60.0 [facility] Comment on above: Result Comment: The [facility]???s estimated glomerular filtration rate (eGFR) will [...] of individuals. Performed By: #### L [id number] ####[facility] ([facility])[address] [place] [address] Glucose [Mass/Vol] 93 mg/dL Normal 70-100 [facility] Comment on above: Performed By: #### L [id number] ####[facility] ([facility])[address] [place] [address] Potassium [Moles/Vol] 4.6 mmol/L Normal 3.5-5.1 [facility] Comment on above: Performed By: #### L [id number] ####[facility] ([facility] [place] [address] Sodium [Moles/Vol] 138 mmol/L Normal 136-145 [facility] Comment on above: Performed By: #### L [id number] ####[facility] ([facility])[address] [place] [address] Urea nitrogen [Mass/Vol] 12 mg/dL Normal 7-25 [facility] Comment on above: Performed By: #### L [id number] ####[facility] ([facility])[address] [place] [address] UREA NITROGEN/CREATININE (MASS RATIO) IN SER/PLAS 15.00 Normal [facility] Comment on above: Performed By: #### L [id number] ####[facility] ([facility])[address] [place] [address] CBC WITH AUTO DIFFERENTIALon 04-21-2022 Basophils (Bld) [#/Vol] 0.05 10*3/uL Normal 0.00-0.20 [facility] Comment on above: Performed By: #### L [id number] ####[facility] ([facility])[address] [place] [address] Basophils/100 WBC (Bld) 0.4 % Normal 0.0-1.0 [facility] Comment on above: Performed By: #### L [id number] ####[facility] ([facility])[address] [place] [address] Eosinophils (Bld) [#/Vol] 0.07 10*3/uL Normal 0.00-0.50 [facility] Comment on above: Performed By: #### L [id number] ####[facility] ([facility])[address] [place] [address] Eosinophils/100 WBC (Bld) 0.6 % Normal 0.0-6.0 [facility] Comment on above: Performed By: #### L [id number] ####[facility] ([facility])[address] [place] [address] ERYTHROCYTE DISTRIBUTION WIDTH (RATIO) STANDARD DEVIATION 48.5 Normal [facility] Comment on above: Performed By: #### L [id number] ####[facility] ([facility])[address] [place] [address] Erythrocyte distribution width (RBC) [Ratio] 14.4 % Normal 11.5-15.0 [facility] Comment on above: Performed By: #### L [id number] ####[facility] ([facility])[address] [place] [address] ERYTHROCYTE MEAN CORPUSCULAR HEMOGLOBIN CONCENTRATION (G/DL) BY AUTOMATED 33.1 g/dL Normal 32.0-35.0 [facility] Comment on above: Performed By: #### L [id number] ####[facility] ([facility])[address] [place] [address] Hematocrit (Bld) [Volume fraction] 44.4 % Normal 36.0-48.0 [facility] Comment on above: Performed By: #### L [id number] ####[facility] ([facility])[address] [place] [address] Hemoglobin (Bld) [Mass/Vol] 14.7 g/dL Normal 12.0-15.0 [facility] Comment on above: Performed By: #### L [id number] ####[facility] ([facility])[address] [place] [address] Immature granulocytes (Bld) [#/Vol] 0.04 10*3/uL Normal 0.00-0.20 [facility] Comment on above: Performed By: #### L [id number] ####[facility] ([facility])[address] [place] [address] Immature granulocytes/100 WBC (Bld) 0.4 % Normal 0.0-1.0 [facility] Comment on above: Performed By: #### L [id number] ####[facility] ([facility])[address] [place] [address] Lymphocytes (Bld) [#/Vol] 3.12 10*3/uL Normal 1.20-4.00 [facility] Comment on above: Performed By: #### L [id number] ####[facility] ([facility])[address] [place] [address] Lymphocytes/100 WBC (Bld) 28.0 % Normal 20.0-45.0 [facility] Comment on above: Performed By: #### L [id number] ####[facility] ([facility])[address] [place] [address] MCH (RBC) [Entitic mass] 30.7 pg Normal 27.0-33.0 [facility] Comment on above: Performed By: #### L [id number] ####[facility] ([facility])[address] [place] [address] MCV (RBC) [Entitic vol] 92.7 fL Normal 82.0-98.0 [facility] Comment on above: Performed By: #### L [id number] ####[facility] ([facility])[address] [place] [address] Monocytes (Bld) [#/Vol] 0.88 10*3/uL Normal 0.10-1.00 [facility] Comment on above: Performed By: #### L [id number] ####[facility] ([facility])[address] [place] [address] Monocytes/100 WBC (Bld) 7.9 % Normal 5.0-12.0 [facility] Comment on above: Performed By: #### L [id number] ####[facility] ([facility])[address] [place] [address] Neutrophils (Bld) [#/Vol] 7.00 10*3/uL Normal 1.60-7.60 [facility] Comment on above: Performed By: #### L [id number] ####[facility] ([facility]AKER)[address] [place] [address] Neutrophils/100 WBC (Bld) 62.7 % Normal 40.0-72.0 [facility] Comment on above: Performed By: #### L [id number] ####[facility] ([facility])[address] [place] [address] NRBC (PER 100 WBCS) BY AUTOMATED COUNT 0.0 % Normal 0.0-0.0 [facility] Comment on above: Performed By: #### L [id number] ####[facility] ([facility])[address] [place] [address] PLATELETS (10*3/UL) IN BLOOD AUTOMATED COUNT 371 10*3/uL Normal 150-400 [facility] Comment on above: Performed By: #### L [id number] ####[facility] ([facility])[address] [place] [address] RBC (Bld) [#/Vol] 4.79 10*6/uL Normal 3.80-5.00 [facility] Comment on above: Performed By: #### L [id number] ####[facility] ([facility])[address] [place] [address] WBC (Bld) [#/Vol] 11.16 10*3/uL High 4.00-10.60 [facility] Comment on above: Performed By: #### L [id number] ####[facility] ([facility])[address] [place] [address] Consulton 04-21-2022 Consult [id number] Nato Short 1970 F Date Provider Department [place] 04/21/2022 Chucky-DILLAN NEWBY MP ORTHO MPORTHO No family history on file Level of Service:80795 CO OFFICE/OUTPATIENT ESTABLISHED LOW MDM 20-29 MIN (GC) Reason for Visit and Comments: Follow-up [164193] - Preop lumbar consent Normal [facility] HPon 04-21-2022 HP --- Attestation signed [...] present from L4-L5 Outside MRI L[facility]spine from [facility] performed 01/13/2022 was reviewed today and shows [...] an additional personal documentation from me. Normal [facility] MRSA/MSSA DNA NASALon 2021 MRSA DNA Negative Normal Negative, Invalid [facility] Comment on above: Performed By: #### L [id number] ####[facility] ([employer] [facility])[address] [facility] [place] [facility] [place] [address] MSSA DNA Negative Normal Negative, Invalid [facility] Comment on above: Performed By: #### L [id number] ####[facility] ([employer] [facility] [facility])[address] [place] [facility] [facility] [place] [address] PROTIME-INRon 04-21-2022 INR IN PPP BY COAGULATION ASSAY 0.99 Normal 0.90-1.10 [facility] Comment on above: Result Comment: ACCC [...] CHEST 1995;108:[id number]. Performed By: #### L [id number] ####[facility] ([facility])[address] [facility] [facility] [place] [address] PROTHROMBIN TIME (PT) IN PPP BY COAGULATION ASSAY 13.1 Seconds Normal 12.3-14.8 [facility] Comment on above: Performed By: #### L [id number] ####[facility] (BEAKER)[address] [place] [address] TYPE AND SCREENon 04-21-2022 AB SCREEN Negative Normal [facility] Comment on above: Order Comment: Type and cross x 2 units Performed By: #### L [id number] ####[facility], ABO group Nom (Bld) A Normal [facility] Comment on above: Order Comment: Type and cross x 2 units Performed By: #### L [id number] ####[facility], RH TYPE IN BLOOD Positive Normal [facility] Comment on above: Order Comment: Type and cross x 2 units Performed By: #### L [id number] ####[facility], URINALYSISon 04-21-2022 BILIRUBIN, TOTAL PRESENCE IN URINE Negative Normal Negative [facility] Comment on above: Order Comment: 0000 Performed By: #### L [id number] ####[facility] ([facility]AKER)[address] [place] [address] Clarity (U) Clear Normal Clear [facility] Comment on above: Order Comment: 0000 Performed By: #### L [id number] ####[facility] ([facility]AKER)[address] [place] [address] Color (U) Yellow Normal Yellow, Dark Yellow, Straw [facility] Comment on above: Order Comment: 0000 Performed By: #### L [id number] ####[facility] ([facility]AKER)[address] [place] [address] Glucose (U) [Mass/Vol] Negative Normal Negative [facility] Comment on above: Order Comment: 0000 Performed By: #### L [id number] ####[facility] ([facility]AKER)[address] [place] [address] HEMOGLOBIN PRESENCE IN URINE Negative Normal Negative [facility] Comment on above: Order Comment: 0000 Performed By: #### L [id number] ####[facility] ([facility]AKER)[address] [place] [address] Ketones Ql (U) Trace Abnormal Negative [facility] Comment on above: Order Comment: 0000 Performed By: #### L [id number] ####[facility] ([facility])[address] [place] [address] LEUKOCYTE ESTERASE PRESENCE IN URINE BY TEST STRIP Negative Normal Negative [facility] Comment on above: Order Comment: 0000 Performed By: #### L [id number] ####[facility] ([facility])[address] [place] [address] NITRITE PRESENCE IN URINE Negative Normal Negative [facility] Comment on above: Order Comment: 0000 Performed By: #### L [id number] ####[facility] ([facility])[address] [place] [address] pH (U) 6.0 [pH] Normal 5.0-8.0 [facility] Comment on above: Order Comment: 0000 Performed By: #### L [id number] ####[facility] ([facility])[address] [facility] [address] Protein (U) [Mass/Vol] Negative Normal Negative [facility] Comment on above: Order Comment: 0000 Performed By: #### L [id number] ####[facility] ([facility])[address] [place] [address] Specific gravity (U) [Rel density] 1.020 Normal 1.015-1.020 [facility] Comment on above: Order Comment: 0000 Performed By: #### L [id number] ####[facility] ([facility])[address] [place] [address] UROBILINOGEN (EU/DL) IN URINE 0.2 EU/dL Normal Negative [facility] Comment on above: Order Comment: 0000 Performed By: #### L [id number] ####[facility] ([facility])[address] [place] [address] 36on 04-19-2022 36 Please advise refill request. Normal [facility] Refillon 04-19-2022 Refill [id number] Nato Short 1970 F Date Provider Department Center 04/19/2022 DILLAN CRANE [facility] No family history on file Reason for Visit and Comments: Med Refill [[id number]] Normal [facility] CBC AUTO DIFFon 04-16-2022 BASO # 0.1 103/ul Normal 0.0-0.1 [facility] Comment on above: Performed By: #### C BC #### [facility] [address] [address] [address] Radha Suarez Basophils/100 WBC (Bld) 0.8 % Normal 0.2-2.0 [facility] Comment on above: Performed By: #### C BC #### [facility] [address] [place] [address] Dr. Radha Suarez EO # 0.1 103/ul Normal 0.0-0.7 [facility] Comment on above: Performed By: #### C BC #### [facility] [address] [address] [address] Radha Suarez Eosinophils/100 WBC (Bld) 0.8 % Critically low 0.9-7.0 [facility] Comment on above: Performed By: #### C BC #### [facility] [address] [place] [address] Dr. Radha Suarez Erythrocyte distribution width (RBC) [Ratio] 14.3 % Normal 11.0-15.0 [facility] Comment on above: Performed By: #### C BC #### [facility] [address] [place] [address] Dr. Radha Suarez Hematocrit (Bld) [Volume fraction] 44.4 % Normal 36.0-48.0 [facility] Comment on above: Performed By: #### C BC #### [facility] [address] [place] [address] Dr. Radha Suarez Hemoglobin (Bld) [Mass/Vol] 14.6 g/dL Normal 12.0-16.0 [facility] Comment on above: Performed By: #### C BC #### [facility] [address] [place] [address] Dr. Radha Suarez IG # 0.02 10e3/ul Normal 0.00-0.03 [facility] Comment on above: Performed By: #### C BC #### [facility] [address] [place] [address] Dr. Radha Suarez IG % 0.3 % Normal 0.0-0.5 [facility] Comment on above: Performed By: #### C BC #### [facility] [address] [place] [address] Dr. Radha Suarez LYMPH # 2.4 103/ul Normal 1.2-3.8 [facility] Comment on above: Performed By: #### C BC #### [facility] [facility] [address] [place] [address] Dr. Radha Suarez Lymphocytes/100 WBC (Bld) 31.6 % Normal 20.5-60.0 [facility] Comment on above: Performed By: #### C BC #### [facility] [address] [place] [address] Dr. Radha Suarez MANUAL DIFF REQ NO Normal [facility] Comment on above: Performed By: #### C BC #### [facility] [address] [place] [address] Dr. Radha Suarez MCH (RBC) [Entitic mass] 30.5 pg Normal 26.7-34.0 [facility] Comment on above: Performed By: #### C BC #### [facility] [address] [place] [address] Dr. Radha Suarez MCHC (RBC) [Mass/Vol] 32.9 g/dL Normal 29.9-35.2 [facility] Comment on above: Performed By: #### C BC #### [facility] [address] [place] [address] Dr. Radha Suarez MCV (RBC) [Entitic vol] 92.9 fL Normal 81.0-99.0 [facility] Comment on above: Performed By: #### C BC #### [facility] [address] [place] [address] Dr. Radha Suarez MONO # 0.6 103/ul Normal 0.3-0.8 [facility] Comment on above: Performed By: #### C BC #### [facility] [address] [place] [address] Dr. Radha Suarez Monocytes/100 WBC (Bld) 7.8 % Normal 1.7-12.0 [facility] Comment on above: Performed By: #### C BC #### [facility] [address] [place] [address] Dr. Radha Suarez NEUT # 4.5 103/ul Normal 1.4-6.5 [facility] Comment on above: Performed By: #### C BC #### [facility] [address] [place] [address] Dr. Radha Suarez Neutrophils/100 WBC (Bld) 58.7 % Normal 43.0-75.0 [facility] Comment on above: Performed By: #### C BC #### [facility] [address] [place] [address] Dr. Radha Suarez Platelet mean volume (Bld) [Entitic vol] 9.1 fL Critically low 9.5-13.5 [facility] Comment on above: Performed By: #### C BC #### [facility] [address] [place] [address] Dr. Radha Suarez PLT 346 103/ul Normal 150-450 [facility] Comment on above: Performed By: #### C BC #### [facility] [address] [place] [address] Dr. Radha Suarez RBC 4.78 106/ul Normal 4.20-5.40 [facility] Comment on above: Performed By: #### C BC #### [facility] [address] [place] [address] Dr. Radha Suarez WBC 7.6 103/ul Normal 4.0-11.0 [facility] Comment on above: Performed By: #### C BC #### [facility] [address] [place] [address] Dr. Radha Suarez FREE T3on 04-16-2022 FREE T3 2.50 pg/mlL Normal 2.18-3.98 [facility] Comment on above: Performed By: #### C BC #### [facility] [address] [address] [address] Radha Suarez FREE T4on 04-16-2022 Free T4 [Mass/Vol] 1.33 ng/dL Normal 0.76-1.46 [facility] Comment on above: Performed By: #### F T4 #### [facility] [address] [address] [address] Radha Suarez PROF CHEM 8 (BAS METB)on Anion gap [Moles/Vol] 8.7 mmol/L Normal [facility] Comment on above: Performed By: #### C BC #### [facility] [address] [place] [address] Dr. Radha Suarez Calcium [Mass/Vol] 9.4 mg/dL Normal 8.5-10.1 [facility] Comment on above: Performed By: #### C BC #### [facility] [address] [place] [address] Dr. Radha Suarez Chloride [Moles/Vol] 101 mmol/L Normal 98-107 [facility] Comment on above: Performed By: #### C BC #### [facility] [address] [place] [address] Dr. Radha Suarez CO2 [Moles/Vol] 30.5 mmol/L Normal 21.0-32.0 [facility] Comment on above: Performed By: #### C BC #### [facility] [address] [place] [address] Dr. Radha Suaerz Creatinine [Mass/Vol] 0.72 mg/dL Normal 0.55-1.02 [facility] Comment on above: Performed By: #### C BC #### [facility] [address] [place] [address] Dr. Radha Suarez EGFR-AF FILIPINO >60 Normal >=60 [facility] Comment on above: Performed By: #### C BC #### [facility] [address] [place] [address] Dr. Radha Suarez EGFR-NON AF FILIPINO >60 Normal >=60 [facility] Comment on above: Performed By: #### C BC #### [facility] [address] [address] [address] Radha Suarez Glucose [Mass/Vol] 99 mg/dL Normal 74-106 [facility] Comment on above: Performed By: #### C BC #### [facility] [address] [address] [address] Radha Suarez Potassium [Moles/Vol] 4.2 mmol/L Normal 3.5-5.1 [facility] Comment on above: Performed By: #### C BC #### [facility] [address] [address] [address] Radha Suarez Sodium [Moles/Vol] 136 mmol/L Normal 136-145 [facility] Comment on above: Performed By: #### C BC #### [facility] [address] [address] [address] Radha Suarez Urea nitrogen [Mass/Vol] 12.0 mg/dL Normal 7.0-18.0 [facility] Comment on above: Performed By: #### C BC #### [facility] [address] [address] [address] Radha Suarez Urea nitrogen/Creatinine [Mass ratio] 16.7 mg/mg Normal [facility] Comment on above: Performed By: #### C BC #### [facility] [address] [address] [address] Radha Suarez PROTIMEon 04-16-2022 INR Coag (PPP) [Relative time] 0.98 {INR} Normal [facility] Comment on above: Performed By: #### P TT, PT #### [facility] [address] [address] [address] Radha Suarez INR GUIDELINES SEE BELOW Normal [facility] Comment on above: Result Comment: DEVI RED INR: 2.0 - 3.0 CONDITIONS NOT LISTED BELOW 2.5 - 3.5 FOR PROSTHETIC HEART VALVE REPLACEMENT 2.5 - 3.5 RECURRENT THROMBOSIS Performed By: #### P TT, PT #### [facility] [address] [place] [address] Dr. Radha Suarez PT Coag (PPP) [Time] 10.6 s Normal 9.0-11.6 [facility] Comment on above: Performed By: #### P TT, PT #### [facility] [address] [place] [address] Dr. Radha Suarez PTTon 04-16-2022 aPTT Coag (Bld) [Time] 27.9 s Normal 22.3-36.2 [facility] Comment on above: Performed By: #### P TT, PT #### [facility] [address] [address] [address] Radha Suarez TSHon 04-16-2022 TSH 0.206 uIU/mL Critically low 0.358-3.740 [facility] Comment on above: Performed By: #### C BC #### [facility] [address] [place] [address] Dr. Radha Suarez 29on 04-13-2022 29 Addended by: ORA PEREZ on: 04/28/2022 07:39 AM Modules accepted: Orders, SmartSet [facility] Prep for Procedureon 022 Prep for Procedure [id number] Nato Short 1970 F Date Provider Department [place] 04/13/2022 823-ORA PEREZ MP ORTHO MPORTHO Chart Close Cosign Accepted by: DILLAN NEWBY[[id number]] Chart Close Cosign Accepted on: TueApr 13, 2022 4:43 PM No family history on file [facility] Office Visiton 04-07-2022 Follow-up visit [id number] Nato Short 1970 F Date Provider Department [place] 04/07/2022 266-DILLAN NEWBY MP ORTHO MPORTHO No family history on file Level of Service:84455 CO OFFICE/OUTPATIENT ESTABLISHED LOW MDM 20-29 MIN (57,GC) Reason for Visit and Comments: Pain [136] - MRI results [facility] 29on 03-24-2022 29 Addended by: ORA TIPTON on: 03/30/2022 11:29 AM Modules accepted: Orders Normal [facility] Office Visiton 03-24-2022 Follow-up visit [id number] Nato Short 1970 F Date Provider Department Center 03/24/2022 DILLAN CRANE MP ORTHO MPORTHO No family history on file Level of Service:43679 CO OFFICE/OUTPATIENT ESTABLISHED LOW MDM 20-29 MIN Reason for Visit and Comments: Pain [136] Follow-up [[id number]] [facility] FREE T4on 03-08-2022 Free T4 [Mass/Vol] 1.59 ng/dL Critically high 0.76-1.46 [facility] Comment on above: Performed By: #### C VDTBH #### [facility] [address] [place] [address] Dr. Radha Suarez TSHon 03-08-2022 TSH 0.107 uIU/mL Critically low 0.358-3.740 [facility] Comment on above: Performed By: #### C VDTBH #### [facility] [address] [place] [address] Dr. Radha Suarez LUMBAR SPINE 4 OR 5 [facility] LUMBAR SPINE 4 OR 5 [facility] Department of Radiology [address] [place] [id number] ===== Patient Name: NATO SHORT : 1970 Sex: F Age: Race: White Pt. Location: Patient Status: D Ordered Date: 03/03/2022 2:10:00 PM Completed Date: 03/03/2022 02:31 PM Requesting Provider: DILLAN NEWBY Attending Provider: DILLAN NEWBY Report Copy To: Signs & Symptoms: M54.50 Low back pain, unspecified I10 History: [place] Comments: Evaluate Exam: LUMBAR SPINE 4 OR [...] report. Electronically signed: Anjum Quevedo. Transcribed by: [email or web address], User Resident: ANJUM CLIFTON Electronically Signed by: ANJUM QUEVEOD @ 03/04/2022 09:13 AM I personally read this/these film(s) with this resident Normal [facility] Comment on above: Order Comment: Evalu ate CBC AUTO DIFFon 02-04-2022 BASO # 0.0 103/ul Normal 0.0-0.1 [facility] Comment on above: Performed By: #### C BC #### [facility] [address] [address] [address] Radha Suarez Basophils/100 WBC (Bld) 0.1 % Critically low 0.2-2.0 [facility] Comment on above: Performed By: #### C BC #### [facility] [address] [place] [address] Dr. Radha Suarez EO # 0.0 103/ul Normal 0.0-0.7 [facility] Comment on above: Performed By: #### C BC #### [facility] [address] [place] [address] Dr. Radha Suarez Eosinophils/100 WBC (Bld) 0.1 % Critically low 0.9-7.0 [facility] Comment on above: Performed By: #### C BC #### [facility] [address] [place] [address] Dr. Radha Suarez Erythrocyte distribution width (RBC) [Ratio] 14.4 % Normal 11.0-15.0 [facility] Comment on above: Performed By: #### C BC #### [facility] [address] [place] [address] Dr. Radha Suarez Hematocrit (Bld) [Volume fraction] 41.1 % Normal 36.0-48.0 [facility] Comment on above: Performed By: #### C BC #### [facility] [address] [place] [address] Dr. Radha Suarez Hemoglobin (Bld) [Mass/Vol] 13.3 g/dL Normal 12.0-16.0 [facility] Comment on above: Performed By: #### C BC #### [facility] [address] [place] [address] Dr. Radha Suarez IG # 0.09 10e3/ul Critically high 0.00-0.03 [facility] Comment on above: Performed By: #### C BC #### [facility] [address] [place] [address] Dr. Radha Suarez IG % 0.6 % Critically high 0.0-0.5 [facility] Comment on above: Performed By: #### C BC #### [facility] [address] [place] [address] Dr. Radha Suarez LYMPH # 1.1 103/ul Critically low 1.2-3.8 [facility] Comment on above: Performed By: #### C BC #### [facility] [address] [place] [address] Dr. Radha Suarez Lymphocytes/100 WBC (Bld) 7.6 % Critically low 20.5-60.0 [facility] Comment on above: Performed By: #### C BC #### [facility] [address] [place] [address] Dr. Radha Suarez MANUAL DIFF REQ NO Normal [facility] Comment on above: Performed By: #### C BC #### [facility] [address] [place] [address] Dr. Radha Suarez MCH (RBC) [Entitic mass] 30.5 pg Normal 26.7-34.0 [facility] Comment on above: Performed By: #### C BC #### [facility] [address] [place] [address] Dr. Radha Suarez MCHC (RBC) [Mass/Vol] 32.4 g/dL Normal 29.9-35.2 [facility] Comment on above: Performed By: #### C BC #### [facility] [address] [place] [address] Dr. Radha Suarez MCV (RBC) [Entitic vol] 94.3 fL Normal 81.0-99.0 [facility] Comment on above: Performed By: #### C BC #### [facility] [address] [place] [address] Dr. Radha Suarez MONO # 0.4 103/ul Normal 0.3-0.8 [facility] Comment on above: Performed By: #### C BC #### [facility] [address] [place] [address] Dr. Radha Suarez Monocytes/100 WBC (Bld) 2.4 % Normal 1.7-12.0 [facility] Comment on above: Performed By: #### C BC #### [facility] [address] [place] [address] Dr. Radha Suarez NEUT # 13.2 103/ul Critically high 1.4-6.5 [facility] Comment on above: Performed By: #### C BC #### [facility] [address] [address] [address] Radha Suarez Neutrophils/100 WBC (Bld) 89.2 % Critically high 43.0-75.0 [facility] Comment on above: Performed By: #### C BC #### [facility] [address] [address] [address] Radha Suarez Platelet mean volume (Bld) [Entitic vol] 9.3 fL Critically low 9.5-13.5 [facility] Comment on above: Performed By: #### C BC #### [facility] [address] [address] [address] Radha Suarez PLT 358 103/ul Normal 150-450 [facility] Comment on above: Performed By: #### C BC #### [facility] [address] [address] [address] Radha Suarez RBC 4.36 106/ul Normal 4.20-5.40 [facility] Comment on above: Performed By: #### C BC #### [facility] [address] [address] [address] Radha Suarez WBC 14.8 103/ul Critically high 4.0-11.0 [facility] Comment on above: Performed By: #### C BC #### [facility] [address] [address] [address] Radha Suarez PROF CHEM 8 (BAS METB)on Anion gap [Moles/Vol] 10.7 mmol/L Normal [facility] Comment on above: Performed By: #### B MP #### [facility] [address] [address] [address] Radha Suarez Calcium [Mass/Vol] 8.6 mg/dL Normal 8.5-10.1 [facility] Comment on above: Performed By: #### B MP #### [facility] [address] [address] [address] Radha Suarez Chloride [Moles/Vol] 103 mmol/L Normal 98-107 [facility] Comment on above: Performed By: #### B MP #### [facility] [address] [address] [address] Radha Suarez CO2 [Moles/Vol] 27.2 mmol/L Normal 21.0-32.0 [facility] Comment on above: Performed By: #### B MP #### [facility] [address] [address] [address] Radha Suarez Creatinine [Mass/Vol] 0.82 mg/dL Normal 0.55-1.02 [facility] Comment on above: Performed By: #### B MP #### [facility] [address] [address] [address] Radha Suarez EGFR-AF FILIPINO >60 Normal >=60 [facility] Comment on above: Performed By: #### B MP #### [facility] [address] [address] [address] Radha Suarez EGFR-NON AF FILIPINO >60 Normal >=60 [facility] Comment on above: Performed By: #### B MP #### [facility] [address] [address] [address] Radha Suarez Glucose [Mass/Vol] 158 mg/dL Critically high 74-106 [facility] Comment on above: Performed By: #### B MP #### [facility] [address] [address] [address] Radha Suarez Potassium [Moles/Vol] 3.9 mmol/L Normal 3.5-5.1 [facility] Comment on above: Performed By: #### B MP #### [facility] [address] [address] [address] Radha Suarez Sodium [Moles/Vol] 137 mmol/L Normal 136-145 [facility] Comment on above: Performed By: #### B MP #### [facility] [address] [address] [address] Radha Suarez Urea nitrogen [Mass/Vol] 16.0 mg/dL Normal 7.0-18.0 [facility] Comment on above: Performed By: #### B MP #### [facility] [address] [place] [address] Dr. Radha Suraez Urea nitrogen/Creatinine [Mass ratio] 19.5 mg/mg Normal [facility] Comment on above: Performed By: #### B MP #### [facility] [address] [place] [address] Dr. Radha Suarez CBC AUTO DIFFon 02-03-2022 BASO # 0.0 103/ul Normal 0.0-0.1 [facility] Comment on above: Performed By: #### C BC #### [facility] [address] [place] [address] Dr. Radha Suarez BASO # 0.0 103/ul Normal 0.0-0.1 [facility] Comment on above: Performed By: #### C VDTBH #### [facility] [address] [place] [address] Dr. Radha Suarez Basophils/100 WBC (Bld) 0.2 % Normal 0.2-2.0 [facility] Comment on above: Performed By: #### C BC #### [facility] [address] [place] [address] Dr. Radha Suarez Basophils/100 WBC (Bld) 0.3 % Normal 0.2-2.0 [facility] Comment on above: Performed By: #### C VDTBH #### [facility] [address] [place] [address] Dr. Radha Suarez EO # 0.0 103/ul Normal 0.0-0.7 [facility] Comment on above: Performed By: #### C BC #### [facility] [address] [place] [address] Dr. Radha Suarez EO # 0.0 103/ul Normal 0.0-0.7 [facility] Comment on above: Performed By: #### C VDTBH #### [facility] [address] [place] [address] Dr. Radha Suarez Eosinophils/100 WBC (Bld) 0.2 % Critically low 0.9-7.0 [facility] Comment on above: Performed By: #### C BC #### [facility] [address] [place] [address] Dr. Radha Suarez Eosinophils/100 WBC (Bld) 0.0 % Critically low 0.9-7.0 [facility] Comment on above: Performed By: #### C VDTBH #### [facility] [address] [place] [address] Dr. Radha Suarez Erythrocyte distribution width (RBC) [Ratio] 14.3 % Normal 11.0-15.0 [facility] Comment on above: Performed By: #### C BC #### [facility] [address] [place] [address] Dr. Radha Suarez Erythrocyte distribution width (RBC) [Ratio] 14.2 % Normal 11.0-15.0 [facility] Comment on above: Performed By: #### C VDTBH #### [facility] [address] [place] [address] Dr. Radha Suarez Hematocrit (Bld) [Volume fraction] 46.6 % Normal 36.0-48.0 [facility] Comment on above: Performed By: #### C BC #### [facility] [address] [place] [address] Dr. Radha Suarez Hematocrit (Bld) [Volume fraction] 43.2 % Normal 36.0-48.0 [facility] Comment on above: Performed By: #### C VDTBH #### [facility] [address] [place] [address] Dr. Radha Suarez Hemoglobin (Bld) [Mass/Vol] 15.5 g/dL Normal 12.0-16.0 [facility] Comment on above: Performed By: #### C BC #### [facility] [address] [place] [address] Dr. Radha Suarez Hemoglobin (Bld) [Mass/Vol] 13.8 g/dL Normal 12.0-16.0 [facility] Comment on above: Performed By: #### C VDTBH #### [facility] [address] [place] [address] Dr. Radha Suarez IG # 0.06 10e3/ul Critically high 0.00-0.[address] [facility] Comment on above: Performed By: #### C BC #### [facility] [address] [address] [address] Radha Suarez IG # 0.02 10e3/ul Normal 0.00-0.03 [facility] Comment on above: Performed By: #### C VDTBH #### [facility] [address] [address] [address] Radha Suarez IG % 0.5 % Normal 0.0-0.5 [facility] Comment on above: Performed By: #### C BC #### [facility] [address] [place] [address] Dr. Radha Suarez IG % 0.3 % Normal 0.0-0.5 [facility] Comment on above: Performed By: #### C VDTBH #### [facility] [address] [place] [address] Dr. Radha Suarez LYMPH # 0.9 103/ul Critically low 1.2-3.8 [facility] Comment on above: Performed By: #### C BC #### [facility] [address] [place] [address] Dr. Radha Suarez LYMPH # 0.7 103/ul Critically low 1.2-3.8 [facility] Comment on above: Performed By: #### C VDTBH #### [facility] [address] [place] [address] Dr. Radha Suarez Lymphocytes/100 WBC (Bld) 7.2 % Critically low 20.5-60.0 [facility] Comment on above: Performed By: #### C BC #### [facility] [address] [place] [address] Dr. Radha Suarez Lymphocytes/100 WBC (Bld) 9.8 % Critically low 20.5-60.0 [facility] Comment on above: Performed By: #### C VDTBH #### [facility] [address] [place] [address] Dr. Radha Suarez MANUAL DIFF REQ NO Normal [facility] Comment on above: Performed By: #### C BC #### [facility] [address] [place] [address] Dr. Radha Suarez MANUAL DIFF REQ NO Normal [facility] Comment on above: Performed By: #### C VDTBH #### [facility] [address] [place] [address] Dr. Radha Suarez MCH (RBC) [Entitic mass] 30.7 pg Normal 26.7-34.0 [facility] Comment on above: Performed By: #### C BC #### [facility] [address] [place] [address] Dr. Radha Suarez MCH (RBC) [Entitic mass] 29.8 pg Normal 26.7-34.0 [facility] Comment on above: Performed By: #### C VDTBH #### [facility] [address] [place] [address] Dr. Radha Suarez MCHC (RBC) [Mass/Vol] 33.3 g/dL Normal 29.9-35.2 [facility] Comment on above: Performed By: #### C BC #### [facility] [address] [place] [address] Dr. Radha Suarez MCHC (RBC) [Mass/Vol] 31.9 g/dL Normal 29.9-35.2 [facility] Comment on above: Performed By: #### C VDTBH #### [facility] [address] [place] [address] Dr. Radha Suarez MCV (RBC) [Entitic vol] 92.3 fL Normal 81.0-99.0 [facility] Comment on above: Performed By: #### C BC #### [facility] [address] [place] [address] Dr. Radha Suarez MCV (RBC) [Entitic vol] 93.3 fL Normal 81.0-99.0 [facility] Comment on above: Performed By: #### C VDTBH #### [facility] [address] [place] [address] Dr. Rdaha Suarez MONO # 0.1 103/ul Critically low 0.3-0.8 [facility] Comment on above: Performed By: #### C BC #### [facility] [address] [address] [address] Radha Suarez MONO # 0.1 103/ul Critically low 0.3-0.8 [facility] Comment on above: Performed By: #### C VDTBH #### [facility] [address] [address] [address] Radha Suarez Monocytes/100 WBC (Bld) 0.7 % Critically low 1.7-12.0 [facility] Comment on above: Performed By: #### C BC #### [facility] [address] [address] [address] Radha Suarez Monocytes/100 WBC (Bld) 0.8 % Critically low 1.7-12.0 [facility] Comment on above: Performed By: #### C VDTBH #### [facility] [address] [address] [address] Radha Suarez NEUT # 11.7 103/ul Critically high 1.4-6.5 [facility] Comment on above: Performed By: #### C BC #### [facility] [address] [address] [address] Radha Suarez NEUT # 6.6 103/ul Critically high 1.4-6.5 [facility] Comment on above: Performed By: #### C VDTBH #### [facility] [address] [address] [address] Radha Suarez Neutrophils/100 WBC (Bld) 91.2 % Critically high 43.0-75.0 [facility] Comment on above: Performed By: #### C BC #### [facility] [address] [address] [address] Radha Suarez Neutrophils/100 WBC (Bld) 88.8 % Critically high 43.0-75.0 [facility] Comment on above: Performed By: #### C VDTBH #### [facility] [address] [address] [address] Radha Suarez Platelet mean volume (Bld) [Entitic vol] 9.1 fL Critically low 9.5-13.5 [facility] Comment on above: Performed By: #### C BC #### [facility] [address] [address] [address] Radha Suarez Platelet mean volume (Bld) [Entitic vol] 9.2 fL Critically low 9.5-13.5 [facility] Comment on above: Performed By: #### C VDTBH #### [facility] [address] [place] [address] Dr. Radha Suarez PLT 394 103/ul Normal 150-450 [facility] Comment on above: Performed By: #### C BC #### [facility] [address] [place] [address] Dr. Radha Suarez PLT 368 103/ul Normal 150-450 [facility] Comment on above: Performed By: #### C VDTBH #### [facility] [address] [place] [address] Dr. Radha Suarez RBC 5.05 106/ul Normal 4.20-5.40 [facility] Comment on above: Performed By: #### C BC #### [facility] [address] [place] [address] Dr. Radha Suarez RBC 4.63 106/ul Normal 4.20-5.40 [facility] Comment on above: Performed By: #### C VDTBH #### [facility] [address] [place] [address] Dr. Radha Suarez WBC 12.8 103/ul Critically high 4.0-11.0 [facility] Comment on above: Performed By: #### C BC #### [facility] [address] [place] [address] Dr. Radha Suarez WBC 7.4 103/ul Normal 4.0-11.0 [facility] Comment on above: Performed By: #### C VDTBH #### [facility] [address] [place] [address] LSPINE WO CONon [...] NAOMIE THEODORE Date: 2022-02-03 09:33 Normal [facility] PROF 14(COMP METB)on 022 Albumin [Mass/Vol] 3.9 g/dL Normal 3.4-5.0 [facility] Comment on above: Performed By: #### C VDTB #### [facility] [address] [place] [address] Dr. Radha Suarez Albumin/Globulin [Mass ratio] 1.0 {ratio} Normal [facility] Comment on above: Performed By: #### C VDTBH #### [facility] [address] [place] [address] Dr. Radha Suarez ALP [Catalytic activity/Vol] 117 U/L Critically high 46-116 [facility] Comment on above: Performed By: #### C VDTBH #### [facility] [address] [place] [address] Dr. Radha Suarez ALT [Catalytic activity/Vol] 42 U/L Normal 14-59 [facility] Comment on above: Performed By: #### C VDTBH #### [facility] [address] [place] [address] Dr. Radha Suarez Anion gap [Moles/Vol] 16.0 mmol/L Normal [facility] Comment on above: Performed By: #### C VDTBH #### [facility] [address] [place] [address] Dr. Radha Suarez AST [Catalytic activity/Vol] 25 U/L Normal 15-37 [facility] Comment on above: Performed By: #### C VDTBH #### [facility] [address] [place] [address] Dr. Radha Suarez Bilirubin [Mass/Vol] 0.2 mg/dL Normal 0.2-1.0 [facility] Comment on above: Performed By: #### C VDTBH #### [facility] [address] [place] [address] Dr. Radha Suarez Calcium [Mass/Vol] 9.6 mg/dL Normal 8.5-10.1 [facility] Comment on above: Performed By: #### C VDTBH #### [facility] [address] [place] [address] Dr. Rdaha Suarez Chloride [Moles/Vol] 104 mmol/L Normal 98-107 [facility] Comment on above: Performed By: #### C VDTBH #### [facility] [address] [place] [address] Dr. Radha Suraez CO2 [Moles/Vol] 26.0 mmol/L Normal 21.0-32.0 [facility] Comment on above: Performed By: #### C VDTBH #### [facility] [address] [place] [address] Dr. Radha Suarez Creatinine [Mass/Vol] 0.82 mg/dL Normal 0.55-1.02 [facility] Comment on above: Performed By: #### C VDTBH #### [facility] [address] [place] [address] Dr. Radha Suarez EGFR-AF FILIPINO >60 Normal >=60 [facility] Comment on above: Performed By: #### C VDTBH #### [facility] [address] [place] [address] Dr. Radha Suarez EGFR-NON AF FILIPINO >60 Normal >=60 [facility] Comment on above: Performed By: #### C VDTBH #### [facility] [address] [address] [address] Radha Suarez Globulin (S) [Mass/Vol] 3.8 g/dL Normal [facility] Comment on above: Performed By: #### C VDTBH #### [facility] [address] [address] [address] Radha Suarez Glucose [Mass/Vol] 153 mg/dL Critically high 74-106 [facility] Comment on above: Performed By: #### C VDTBH #### [facility] [address] [place] [address] Dr. Radha Suarez Potassium [Moles/Vol] 4.0 mmol/L Normal 3.5-5.1 [facility] Comment on above: Performed By: #### C VDTBH #### [facility] [address] [place] [address] Dr. Radha Suarez Protein [Mass/Vol] 7.7 g/dL Normal 6.4-8.2 [facility] Comment on above: Performed By: #### C VDTBH #### [facility] [address] [place] [address] Dr. Radha Suarez Sodium [Moles/Vol] 142 mmol/L Normal 136-145 [facility] Comment on above: Performed By: #### C VDTBH #### [facility] [address] [address] [address] Radha Suarez Urea nitrogen [Mass/Vol] 10.0 mg/dL Normal 7.0-18.0 [facility] Comment on above: Performed By: #### C VDTBH #### [facility] [address] [place] [address] Dr. Radha Suarez Urea nitrogen/Creatinine [Mass ratio] 12.2 mg/mg Normal [facility] Comment on above: Performed By: #### C VDTBH #### [facility] [address] [place] [address] Dr. Radha Suarez PROF CHEM 8 (BAS METB)on Anion gap [Moles/Vol] 14.9 mmol/L Normal [facility] Comment on above: Performed By: #### C VDTBH #### [facility] [address] [place] [address] Dr. Radha Suarez Calcium [Mass/Vol] 9.3 mg/dL Normal 8.5-10.1 [facility] Comment on above: Result Comment: resu lt to follow Previously reported as: 9.1 On 02/03/2022 09:13 By [email or web address] Performed By: #### C VDTBH #### [facility] [address] [place] [address] Dr. Radha Suarez Chloride [Moles/Vol] 104 mmol/L Normal 98-107 [facility] Comment on above: Performed By: #### C VDTBH #### [facility] [address] [place] [address] Dr. Radha Suarez CO2 [Moles/Vol] 25.7 mmol/L Normal 21.0-32.0 [facility] Comment on above: Performed By: #### C VDTBH #### [facility] [address] [place] [address] Dr. Radha Suarez Creatinine [Mass/Vol] 0.93 mg/dL Normal 0.55-1.02 [facility] Comment on above: Performed By: #### C VDTBH #### [facility] [address] [place] [address] Dr. Radha Suarez EGFR-AF FILIPINO >60 Normal >=60 [facility] Comment on above: Performed By: #### C VDTBH #### [facility] [address] [place] [address] Dr. Radha Suarez EGFR-NON AF FILIPINO >60 Normal >=60 [facility] Comment on above: Performed By: #### C VDTBH #### [facility] [address] [address] [address] Radha Suarez Glucose [Mass/Vol] 173 mg/dL Critically high 74-106 [facility] Comment on above: Performed By: #### C VDTBH #### [facility] [address] [address] [address] Radha Suarez Potassium [Moles/Vol] 3.6 mmol/L Normal 3.5-5.1 [facility] Comment on above: Performed By: #### C VDTBH #### [facility] [address] [address] [address] Radha Suarez Sodium [Moles/Vol] 141 mmol/L Normal 136-145 [facility] Comment on above: Performed By: #### C VDTBH #### [facility] [address] [place] [address] Dr. Radha Suarez Urea nitrogen [Mass/Vol] 12.0 mg/dL Normal 7.0-18.0 [facility] Comment on above: Performed By: #### C VDTBH #### [facility] [address] [address] [address] Radha Suarez Urea nitrogen/Creatinine [Mass ratio] 12.9 mg/mg Normal [facility] Comment on above: Performed By: #### C VDTBH #### [facility] [address] [place] [address] Dr. Radha Suarez XR CHEST 1 Von [...] NAOMIE VELASQUEZ Date: 2022-02-02 22:36 Normal [facility] Covid-19 PCR (C[facility])on SARS-CoV-2 (COVID-19) RNA RENÉ+probe Ql (Unsp spec) Not detected Normal NOT DETECTED [facility] Comment on above: Result Comment: [...] for this test is supported by the [place] of Health and Human Service's declaration that [...] used). Performed By: #### C BC #### [facility] [address] [place] [address] Dr. Radha Suarez BNPon 01-14-2022 Natriuretic peptide B (Bld) [Mass/Vol] 86.0 pg/mL Normal <=900.0 [facility] Comment on above: Performed By: #### B SIZING SPRAYER, CMP #### [facility] [address] [place] [address] Dr. Radha Suarez CBC AUTO DIFFon 01-14-2022 BASO # 0.1 103/ul Normal 0.0-0.1 [facility] Comment on above: Performed By: #### C VDTBH #### [facility] [address] [place] [address] Dr. Radha Suarez Basophils/100 WBC (Bld) 0.6 % Normal 0.2-2.0 [facility] Comment on above: Performed By: #### C VDTBH #### [facility] [address] [place] [address] Dr. Radha Suarez EO # 0.1 103/ul Normal 0.0-0.7 [facility] Comment on above: Performed By: #### C VDTBH #### [facility] [address] [place] [address] Dr. Radha Suarez Eosinophils/100 WBC (Bld) 1.1 % Normal 0.9-7.0 [facility] Comment on above: Performed By: #### C VDTBH #### [facility] [address] [place] [address] Dr. Radha Suarez Erythrocyte distribution width (RBC) [Ratio] 14.6 % Normal 11.0-15.0 [facility] Comment on above: Performed By: #### C VDTBH #### [facility] [address] [place] [address] Dr. Radha Suarez Hematocrit (Bld) [Volume fraction] 43.8 % Normal 36.0-48.0 [facility] Comment on above: Performed By: #### C VDTBH #### [facility] [address] [place] [address] Dr. Radha Suarez Hemoglobin (Bld) [Mass/Vol] 14.7 g/dL Normal 12.0-16.0 [facility] Comment on above: Performed By: #### C VDTBH #### [facility] [address] [place] [address] Dr. Radha Suarez IG # 0.04 10e3/ul Critically high 0.00-0.03 [facility] Comment on above: Performed By: #### C VDTBH #### [facility] [address] [place] [address] Dr. Radha Suarez IG % 0.4 % Normal 0.0-0.5 [facility] Comment on above: Performed By: #### C VDTBH #### [facility] [address] [place] [address] Dr. Radha Suarez LYMPH # 1.7 103/ul Normal 1.2-3.8 [facility] Comment on above: Performed By: #### C VDTBH #### [facility] [address] [place] [address] Dr. Radha Suarez Lymphocytes/100 WBC (Bld) 19.0 % Critically low 20.5-60.0 [facility] Comment on above: Performed By: #### C VDTBH #### [facility] [address] [place] [address] Dr. Radha Suarez MANUAL DIFF REQ NO Normal [facility] Comment on above: Performed By: #### C VDTBH #### [facility] [address] [place] [address] Dr. Radha Suarez MCH (RBC) [Entitic mass] 30.5 pg Normal 26.7-34.0 [facility] Comment on above: Performed By: #### C VDTBH #### [facility] [address] [place] [address] Dr. Radha Suarez MCHC (RBC) [Mass/Vol] 33.6 g/dL Normal 29.9-35.2 [facility] Comment on above: Performed By: #### C VDTBH #### [facility] [address] [place] [address] Dr. Radha Suarez MCV (RBC) [Entitic vol] 90.9 fL Normal 81.0-99.0 [facility] Comment on above: Performed By: #### C VDTBH #### [facility] [address] [place] [address] Dr. Radha Suarez MONO # 0.6 103/ul Normal 0.3-0.8 [facility] Comment on above: Performed By: #### C VDTBH #### [facility] [address] [place] [address] Dr. Radha Suarez Monocytes/100 WBC (Bld) 6.9 % Normal 1.7-12.0 [facility] Comment on above: Performed By: #### C VDTBH #### [facility] [address] [place] [address] Dr. Radha Suarez NEUT # 6.5 103/ul Normal 1.4-6.5 [facility] Comment on above: Performed By: #### C VDTBH #### [facility] [address] [place] [address] Dr. Radha Suarez Neutrophils/100 WBC (Bld) 72.0 % Normal 43.0-75.0 [facility] Comment on above: Performed By: #### C VDTBH #### [facility] [address] [address] [address] Radha Suarez Platelet mean volume (Bld) [Entitic vol] 8.9 fL Critically low 9.5-13.5 [facility] Comment on above: Performed By: #### C VDTBH #### [facility] [address] [place] [address] Dr. Radha Suarez PLT 324 103/ul Normal 150-450 [facility] Comment on above: Performed By: #### C VDTBH #### [facility] [address] [address] [address] Radha Suarez RBC 4.82 106/ul Normal 4.20-5.40 [facility] Comment on above: Performed By: #### C VDTBH #### [facility] [address] [place] [address] Dr. Radha Suarez WBC 9.0 103/ul Normal 4.0-11.0 [facility] Comment on above: Performed By: #### C VDTBH #### [facility] [address] [place] [address] Dr. Radha Suarez Covid-19 PCR ([facility])on 12-26 SARS-CoV-2 (COVID-19) RNA RENÉ+probe Ql (Unsp spec) Not detected Normal NOT DETECTED [facility] Comment on above: Result Comment: [...] for this test is supported by the [place] of Health and Human Service's declaration that [...] used). Performed By: #### C VDTB #### [facility] [address] [place] [address] Dr. Radha Suarez PROF 14(COMP METB)on 022 Albumin [Mass/Vol] 3.9 g/dL Normal 3.4-5.0 [facility] Comment on above: Performed By: #### B SIZING SPRAYER, CMP #### [facility] [address] [place] [address] Dr. aRdha Suarez Albumin/Globulin [Mass ratio] 1.0 {ratio} Normal [facility] Comment on above: Performed By: #### B SIZING SPRAYER, CMP #### [facility] [address] [place] [address] Dr. Radha Suarez ALP [Catalytic activity/Vol] 96 U/L Normal 46-116 [facility] Comment on above: Performed By: #### B SIZING SPRAYER, CMP #### [facility] [address] [place] [address] Dr. Radha Suarez ALT [Catalytic activity/Vol] 26 U/L Normal 14-59 [facility] Comment on above: Performed By: #### B SIZING SPRAYER, CMP #### [facility] [address] [place] [address] Dr. Rahda Suarez Anion gap [Moles/Vol] 13.6 mmol/L Normal [facility] Comment on above: Performed By: #### B SIZING SPRAYER, CMP #### [facility] [address] [place] [address] Dr. Radha Suarez AST [Catalytic activity/Vol] 17 U/L Normal 15-37 [facility] Comment on above: Performed By: #### B SIZING SPRAYER, CMP #### [facility] [address] [place] [address] Dr. Radha Suarez Bilirubin [Mass/Vol] 0.3 mg/dL Normal 0.2-1.0 [facility] Comment on above: Performed By: #### B SIZING SPRAYER, CMP #### [facility] [address] [place] [address] Dr. Radha Suarez Calcium [Mass/Vol] 9.1 mg/dL Normal 8.5-10.1 [facility] Comment on above: Performed By: #### B SIZING SPRAYER, CMP #### [facility] [address] [place] [address] Dr. Radha Suarez Chloride [Moles/Vol] 106 mmol/L Normal 98-107 [facility] Comment on above: Performed By: #### B SIZING SPRAYER, CMP #### [facility] [address] [place] [address] Dr. Radha Suarez CO2 [Moles/Vol] 26.8 mmol/L Normal 21.0-32.0 [facility] Comment on above: Performed By: #### B SIZING SPRAYER, CMP #### [facility] [address] [place] [address] Dr. Radha Suarez Creatinine [Mass/Vol] 0.94 mg/dL Normal 0.55-1.02 [facility] Comment on above: Performed By: #### B SIZING SPRAYER, CMP #### [facility] [address] [place] [address] Dr. Radha Suarez EGFR-AF FILIPINO >60 Normal >=60 [facility] Comment on above: Performed By: #### B SIZING SPRAYER, CMP #### [facility] [address] [place] [address] Dr. Radha Suarez EGFR-NON AF FILIPINO >60 Normal >=60 [facility] Comment on above: Performed By: #### B SIZING SPRAYER, CMP #### [facility] [address] [place] [address] Dr. Radha Suarez Globulin (S) [Mass/Vol] 4.1 g/dL Normal [facility] Comment on above: Performed By: #### B SIZING SPRAYER, CMP #### [facility] [address] [place] [address] Dr. Radha Suarez Glucose [Mass/Vol] 115 mg/dL Critically high 74-106 [facility] Comment on above: Performed By: #### B SIZING SPRAYER, CMP #### [facility] [address] [place] [address] Dr. Radha Suarez Potassium [Moles/Vol] 3.4 mmol/L Critically low 3.5-5.1 [facility] Comment on above: Performed By: #### B SIZING SPRAYER, CMP #### [facility] [address] [place] [address] Dr. Radha Suarez Protein [Mass/Vol] 8.0 g/dL Normal 6.4-8.2 [facility] Comment on above: Performed By: #### B SIZING SPRAYER, CMP #### [facility] [address] [place] [address] Dr. Radha Suarez Sodium [Moles/Vol] 143 mmol/L Normal 136-145 [facility] Comment on above: Performed By: #### B SIZING SPRAYER, CMP #### [facility] [address] [place] [address] Dr. Radha Suarez Urea nitrogen [Mass/Vol] 13.0 mg/dL Normal 7.0-18.0 [facility] Comment on above: Performed By: #### B SIZING SPRAYER, CMP #### [facility] [address] [place] [address] Dr. Radha Suarez Urea nitrogen/Creatinine [Mass ratio] 13.8 mg/mg Normal [facility] Comment on above: Performed By: #### B SIZING SPRAYER, CMP #### [facility] [address] [place] [address] Dr. Radha Suarez XR CHEST 1 Von [...] ZIA DESAI Date: 2022-01-14 20:21 Normal [facility] CBC AUTO DIFFon 01-13-2022 BASO # 0.0 103/ul Normal 0.0-0.1 [facility] Comment on above: Performed By: #### C VDTBH #### [facility] [address] [place] [address] Dr. Radha Suarez Basophils/100 WBC (Bld) 0.5 % Normal 0.2-2.0 [facility] Comment on above: Performed By: #### C VDTBH #### [facility] [address] [place] [address] Dr. Radha Suarez EO # 0.1 103/ul Normal 0.0-0.7 [facility] Comment on above: Performed By: #### C VDTBH #### [facility] [address] [place] [address] Dr. Radha Suarez Eosinophils/100 WBC (Bld) 1.0 % Normal 0.9-7.0 [facility] Comment on above: Performed By: #### C VDTBH #### [facility] [address] [place] [address] Dr. Radha Suarez Erythrocyte distribution width (RBC) [Ratio] 14.6 % Normal 11.0-15.0 [facility] Comment on above: Performed By: #### C VDTBH #### [facility] [address] [place] [address] Dr. Radha Suarez Hematocrit (Bld) [Volume fraction] 42.3 % Normal 36.0-48.0 [facility] Comment on above: Performed By: #### C VDTBH #### [facility] [address] [place] [address] Dr. Radha Suarez Hemoglobin (Bld) [Mass/Vol] 13.7 g/dL Normal 12.0-16.0 [facility] Comment on above: Performed By: #### C VDTBH #### [facility] [address] [place] [address] Dr. Radha Suarez IG # 0.04 10e3/ul Critically high 0.00-0.03 [facility] Comment on above: Performed By: #### C VDTBH #### [facility] [address] [place] [address] Dr. Radha Suarez IG % 0.5 % Normal 0.0-0.5 [facility] Comment on above: Performed By: #### C VDTBH #### [facility] [address] [address] [address] Radha Suarez LYMPH # 1.8 103/ul Normal 1.2-3.8 [facility] Comment on above: Performed By: #### C VDTBH #### [facility] [address] [place] [address] Dr. Radha Suarez Lymphocytes/100 WBC (Bld) 21.4 % Normal 20.5-60.0 [facility] Comment on above: Performed By: #### C VDTBH #### [facility] [address] [place] [address] Dr. Radha Suarez MANUAL DIFF REQ NO Normal [facility] Comment on above: Performed By: #### C VDTBH #### [facility] [address] [place] [address] Dr. Radha Suarez MCH (RBC) [Entitic mass] 30.0 pg Normal 26.7-34.0 [facility] Comment on above: Performed By: #### C VDTBH #### [facility] [address] [place] [address] Dr. Radha Suarez MCHC (RBC) [Mass/Vol] 32.4 g/dL Normal 29.9-35.2 [facility] Comment on above: Performed By: #### C VDTBH #### [facility] [address] [place] [address] Dr. Radha Suarez MCV (RBC) [Entitic vol] 92.8 fL Normal 81.0-99.0 [facility] Comment on above: Performed By: #### C VDTBH #### [facility] [address] [place] [address] Dr. Radha Suarez MONO # 0.7 103/ul Normal 0.3-0.8 [facility] Comment on above: Performed By: #### C VDTBH #### [facility] [address] [place] [address] Dr. Radha Suarez Monocytes/100 WBC (Bld) 7.9 % Normal 1.7-12.0 [facility] Comment on above: Performed By: #### C VDTB #### [facility] [address] [address] [address] Radha Suarez NEUT # 5.6 103/ul Normal 1.4-6.5 [facility] Comment on above: Performed By: #### C VDTBH #### [facility] [address] [address] [address] Radha Suarez Neutrophils/100 WBC (Bld) 68.7 % Normal 43.0-75.0 [facility] Comment on above: Performed By: #### C VDTBH #### [facility] [address] [address] [address] Radha Suarez Platelet mean volume (Bld) [Entitic vol] 9.5 fL Normal 9.5-13.5 [facility] Comment on above: Performed By: #### C VDTBH #### [facility] [address] [place] [address] Dr. Radha Suarez PLT 321 103/ul Normal 150-450 [facility] Comment on above: Performed By: #### C VDTBH #### [facility] [address] [place] [address] Dr. Radha Suarez RBC 4.56 106/ul Normal 4.20-5.40 [facility] Comment on above: Performed By: #### C VDTBH #### [facility] [address] [place] [address] Dr. Radha Suarez WBC 8.2 103/ul Normal 4.0-11.0 [facility] Comment on above: Performed By: #### C VDTBH #### [facility] [address] [place] [address] Dr. Radha Suarez FREE T3on 01-13-2022 FREE T3 1.99 pg/mlL Critically low 2.18-3.98 [facility] Comment on above: Performed By: #### C BC #### [facility] [address] [place] [address] Dr. Radha Suarez FREE T4on 01-13-2022 Free T4 [Mass/Vol] 1.02 ng/dL Normal 0.76-1.46 [facility] Comment on above: Performed By: #### C [facility] #### [facility] [address] [address] [address] Radha Suarez MRI LUMBAR SPINE WO IVCONon 01-13-2022 MRI LUMBAR SPINE WO IVCON * * *Final Report* * * DATE OF EXAM: Jan 13 2022 2:53PM [facility] 0303 - MRI LUMBAR SPINE WO IVCON [...] crest and there are 5 lumbar-type vertebrae. Transit Police Officer: SAVAGE Transcribe Date/Time: Jan 13 2022 3:43P Dictated by : KIERAN MONTOYA MD This examination was interpreted and the report reviewed and electronically signed by: KIERAN MONTOYA MD on Jan 13 2022 3:50PM EST [id number] Normal [facility] MRI THORACIC SPINE WO IVCONo n 01-13-2022 MRI THORACIC SPINE WO IVCON * * *Final Report* * * DATE OF EXAM: Jan 13 2022 2:53PM [facility] 0325 - MRI THORACIC SPINE WO IVCON [...] crest and there are 5 lumbar-type vertebrae. Transit Police Officer: PSCB Transcribe Date/Time: Jan 13 2022 3:43P Dictated by : KIERAN MONTOYA MD This examination was interpreted and the report reviewed and electronically signed by: KIERAN MONTOYA MD on Jan 13 2022 3:50PM EST [id number] Normal [facility] No Panel Informationon 01-13 [facility] PROF CHEM 8 (BAS METB)on Anion gap [Moles/Vol] 11.3 mmol/L Normal [facility] Comment on above: Performed By: #### C BC #### [facility] [address] [place] [address] Dr. Radha Suarez Calcium [Mass/Vol] 9.5 mg/dL Normal 8.5-10.1 [facility] Comment on above: Performed By: #### C BC #### [facility] [address] [address] [address] Radha Suarez Chloride [Moles/Vol] 105 mmol/L Normal 98-107 [facility] Comment on above: Performed By: #### C BC #### [facility] [address] [place] [address] Dr. Radha Suarez CO2 [Moles/Vol] 28.2 mmol/L Normal 21.0-32.0 [facility] Comment on above: Performed By: #### C BC #### [facility] [address] [place] [address] Dr. Radha Suarez Creatinine [Mass/Vol] 0.86 mg/dL Normal 0.55-1.02 [facility] Comment on above: Performed By: #### C BC #### [facility] [address] [place] [address] Dr. Radha Suarez EGFR-AF FILIPINO >60 Normal >=60 [facility] Comment on above: Performed By: #### C BC #### [facility] [address] [place] [address] Dr. Radha Suarez EGFR-NON AF FILIPINO >60 Normal >=60 [facility] Comment on above: Performed By: #### C BC #### [facility] [address] [address] [address] Radha Suarez Glucose [Mass/Vol] 99 mg/dL Normal 74-106 [facility] Comment on above: Performed By: #### C BC #### [facility] [address] [place] [address] Dr. Radha Suarez Potassium [Moles/Vol] 3.5 mmol/L Normal 3.5-5.1 [facility] Comment on above: Performed By: #### C BC #### [facility] [address] [address] [address] Radha Suarez Sodium [Moles/Vol] 141 mmol/L Normal 136-145 [facility] Comment on above: Performed By: #### C BC #### [facility] [address] [id number] Radha Suarez Urea nitrogen [Mass/Vol] 15.0 mg/dL Normal 7.0-18.0 [facility] Comment on above: Performed By: #### C BC #### [facility] [address] [address] [address] Radha Suarez Urea nitrogen/Creatinine [Mass ratio] 17.4 mg/mg Normal [facility] Comment on above: Performed By: #### C BC #### [facility] [address] [address] [address] Radha Suarez TSHon 01-13-2022 TSH 5.692 uIU/mL Critically high 0.358-3.740 [facility] Comment on above: Performed By: #### C BC #### [facility] [address] [address] [address] Radha Suarez C-REACTIVE PROTEIN (CRP)on 0 12-04-2021 CRP [Mass/Vol] 0.9 mg/dL High <0.9 mg/dL [facility] ESR Westergren method (Bld) [Velocity]on 12-04-2021 ESR (Bld) [Velocity] 17 mm/h 0 - 20 mm/hr [facility] HbA1c (Bld)on 12-04-2021 Average glucose Estimated from glycated hemoglobin (Bld) [Mass/Vol] 111 mg/dL [facility] HbA1c (Bld) [Mass fraction] 5.5 % 4.3 - 5.6 % [facility] CNOVon 12-03-2021 CNOV Office Visit (PAINLN ) NATO SHORT ([id number]) 1970 F Date Time Provider Department 12/03/21 [...] supervised home exercise program (HEP): No 5. Acquisition Marketing Manager: No Passive conservative therapy lasting 6 weeks in the last six months (see below) 1. Medical devises: No 2. Acupuncture: No 3. Tens unit: No 4. Prescription pain medication: No 5. 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 EXAMINATION: ZUFSCIRS-[id number] IOR: Scoliosis: No Pelvic Tilt: No Leg [...] sounds no (more content not included)... Normal [facility] CRP SerPl-mCncon 12-03-2021 CRP [Mass/Vol] 0.9 mg/dL High <0.9 [facility] Comment on above: Order Comment: Charles ayala Type: BLOOD SPECIMEN Ordering Facility: [facility] Address: [address] [place] [address] Performed By: #### 1 [id number] #### [facility] CLIA [id number] [address] [place] [address] [place] ESR Westergren method (Bld) [Velocity]on 12-03-2021 ESR (Bld) [Velocity] 17 mm/h Normal 0-20 [facility] Comment on above: Order Comment: Charles ayala Type: BLOOD SPECIMEN Ordering Facility: [facility] Address: [address] [place] [address] Performed By: #### 4 [id number] #### [facility] CLIA [id number] [address] [place] [address] [place] HGB A1Con 12-03-2021 Average glucose Estimated from glycated hemoglobin (Bld) [Mass/Vol] 111 mg/dL Normal [facility] Comment on above: Order Comment: Charles ayala Type: BLOOD SPECIMEN Ordering Facility: [facility] Address: [address] [place] [address] Result Comment: eAG: (Estimated average glucose) is a calculated value from HgbA1c and is high school admissions representative of the average blood glucose level in the last 2-3 month period. Performed By: #### H BA1C #### [facility] CLIA [id number] [address] [place] [address] [place] HbA1c (Bld) [Mass fraction] 5.5 % Normal 4.3-5.6 [facility] Comment on above: Order Comment: Speci men Type: BLOOD SPECIMEN Ordering Facility: [facility] Address: [address] [place] [address] [place] [address] Result Comment: Ammary ican Diabetes Association guidelines indicate that patients with HgbA1c in the range 5.7-6.4% are at increased risk for development of diabetes, and intervention by lifestyle modification may be beneficial. HgbA1c greater or equal to 6.5% is considered diagnostic of diabetes. Performed By: #### H BA1C #### [facility] CLIA [id number] [address] [place] [address] [place] No Panel Informationon 12-03 [facility] XR LUMBAR 3V AP/LAT/L5-S1on 12-03-2021 XR [...] subluxation at L4-5 with facet degenerative changes Transit Police Officer: SAVAGE Transcribe Date/Time: Dec 04 2021 8:19P Dictated by : PARMJIT PIMENTEL MD This examination was interpreted and the report reviewed and electronically signed by: PARMJIT PIMENTEL MD on Dec 04 2021 8:20PM EST [id number] Normal [facility] CNPNon 12-02-2021 CNPN Telephone (PAINLN) NATO SHORT ([id number]) 1970 F Date Time Provider Department 12/02/21 LAZARUS JOHNSON During your visit today, we recorded the following information about you: Keren Rosales MA 12/02/2021 1:49 PM Signed Patient was advised of the following: This is a follow up phone call regarding your appointment with Dr Johnson, which you are scheduled to see at [facility] on 12/03/2021 1) Have you been evaluated [...] need to reschedule please call us at [phone]. Left VM with new patient policy advised [...] Status:Closed by KEREN ROSALES on 12/02/21 Normal [facility] XR FOOT LT MIN 3 VIEWSon XR [...] by: NAOMIE VELASQUEZ Date: 2021-11-12 21:36 Normal [facility] XR CHEST 2 Von 07-24-2021 SARS-CoV-2 (COVID-19) [...] by: NAOMIE VELASQUEZ Date: 2021-07-23 22:04 Normal [facility] Consent for Treatmenton Consent for Treatment [id number] D:[address] [facility] Registrationon 03-05-2020 Registration [id number] D:127 [facility] Consenton 02-29-2020 Consent [id number] 0CD:127 [facility] Social History Date Type Detail Facility Start: 12-12-2021 End: 02-02-2022 Exposure to SARS-CoV-2 (event) Not sure [facility] Start: 12-03-2021 Tobacco smoking stat [facility] Smokes tobacco daily [facility] Start: 12-03-2021 Tobacco use and exposure User of smo Enciteess tobacco [facility] Start: 12-03-2021 Alcohol intake Lifetime non-d mar (finding) [facility] Start: 12-03-2021 History SDOH Alcohol Frequency 1 [facility] Start: 12-03-2021 History of Social function [facility] Start: 12-03-2021 Tobacco use panel [facility] Start: 11-23-2021 End: 12-03-2021 Exposure to SARS-CoV-2 (event) Unable to assess [facility] Start: 10-30-2021 Gender identity Identifies as female gender (finding) [facility] Start: 1970 Sex Assigned At Female [facility] Tobacco smoking stat [facility] Tobacco smoking consumption unknown [facility] National Score (1-10 0), lower number is lower risk 60 [facility] Vital Signs Date Time Vital Sign Value Performing Clinician Faci lity 12-03-2021 15:14-0400 Body height 152.4 cm Lazarus Johnson MD Work Phone: [facility] 12-03-2021 15:14-0400 Heart rate 85 /min Lazarus Johnson MD Work Phone: [facility] 12-03-2021 15:14-0400 SaO2% (BldA) [Mass fraction] 96 % Lazarus Johnson MD Work Phone: [facility] Clinical Notes 11-19-2021 to 03-10-2023 Telephone [...] (six) hours if needed., Disp: , Rfl: uwpwozjhvz-isfdcpxmipzap-aysx 50-325-40 mg tablet, Take 1 tablet by [...] 0 min Stress: Stress Concern Present (04/07/2022) [employer] - Occupational Stress Questionnaire Feeling of Stress : Rather much Social Connections: Socially Isolated (04/07/2022) Social Connection and Isolation Panel [NHANES] Frequency of Communication with Friends and Family: More than three times a week Frequency of Social Gatherings with Friends and Family: More than three times a week Attends L[employer] Day Services: Never Active Member of Clubs or Organizations: No (more content not included)... [facility] 10-07-2022 Note Chief Complaint: nec k [...] More than three times a week Attends Latter Day Services: Never Active Member of Clubs or [...] Alignment spine: normal (more content not included)... [facility] 07-08-2022 Note Orthopedic Surgery Subjective 04/29/2022 [...] with restriction Follow up in 3 months [facility] 06-16-2022 Note Orthopedic Surgery L4-5 DECOMPRESSION (L), INSTRUMENTED LUMBAR FUSION (L) Operative Note Date: 04/29/2022 Location: [facility] OR Name: Nato Short, : 1970, Surgeons * Dillan Newby - Primary Transportation Job Titles: Michael Morales M.D. Preoperative Diagnosis: L 4-5 grade I spondylolisthesis with foramina stenosis and L5 radiculopathy (ICD-10 M43.16, M99.53, M54.16). Postoperative Diagnosis: L 4-5 grade I spondylolisthesis with foramina stenosis and L5 radiculopathy (ICD-10 M43.16, M99.53, M54.16). OPERATION: 1. L 4-5posterior lumbar spine decompression (86059). 2. L 4-5 transforaminal lumbar interbody fusion using autograft, crushed cancellous allograft, ViviGen and threaded bone dowel spacer 11 mm and posterolateral fusion using autograft, crushed cancellous allograft and ViviGen (84519, 57386). 3. L 4-5 instrumentation using Expedium system from [employer] (47203). 4. Local bone autograft harvesting and use of crush cancellous allograft (98535, 07254). 5. Use of intraoperative fluoroscopy (55892). Procedure Summary Anesthesia: General ASA: III Position: Prone position on the Rashid table in reverse Trendelenburg position. Estimated Blood Loss: 250 mL Total IV Fluids: 1000 mL Drains: Hemovac Closed/Suction Drain Right Back 10 Fr. (Active) Urethral Catheter Non-latex (Active) Implants Type Name Action Serial No. Studio SBV READIGRAFT CANCELLOUS Implanted [id number] Studio SBV VIVGEN Implanted [id number] Studio SBV VIVIGEN 10CC Implanted ID: [id number] expedium 7x40 screws Implanted Screw SETSCREW,INNER,SINGLE - [id number] Implanted expedium 45mm rods Implanted T-PLIF SPACER 11MM Implanted [id number] Staff: Third Loader: Zoey Tellez RN Scrub Person: Cherise Cardona, WOOD CRAFTER 06/16/22 Patient presents today for evaulation of [...] infection-erythema, drainage, worsening pain, warmth. JEANNINE Yarbrough [facility] 06-04-2022 Note Attestation signed by Dillan [...] be an additional personal documentation from me. [facility] 05-19-2022 Note Orthopedic Surgery Subjective 04/29/2022 [...] heavy lifting Follow up in 6 weeks [facility] 05-04-2022 Note Physical Therapy Physical Therapy [...] Clicks T-Score: 18 Assessment/Plan PT Assessment PT Assessment/IPHONE DEVELOPER Summary: Patient able to progress with ambulation [...] PRN PT Disc (more content not included)... [facility] 05-04-2022 Note Insurance denied pt' s [...] face to face and script from Ortho. [facility] 05-04-2022 Note Occupational Therapy Occupational Therapy [...] with call light in reach. Treatment Time: 0715-5921 Outcome Assessments AM-PAC 6 Clicks Putting on [...] Eating meals?: None (Independent) Total Score OT [facility]: 20 Assessment/Plan OT Assessment OT Impairments: Decreased ADL status, Decreased endurance, Decreased IADLs OT Assessment/NUCLEAR TECHNICIAN Summary: Pt progressing towards goals, however would [...] until discharge & PRN OT Discharge Recommendations: halfway facility placement OT Goals: Multi-Disciplinary Problems (from [...] during ADL's and transfers 04/30/22 05/14/22 -- [facility] 05-04-2022 Note Attestation signed by Dillan [...] discharge Michael Morales MD Orthopaedic Surgery, PGY-5 [facility] 05-03-2022 Note Physical Therapy Physical Therapy [...] Clicks T-Score: 16 Assessment/Plan PT Assessment PT Assessment/IPHONE DEVELOPER Summary: Pt. with only minimal ability to increase ambulatory distance this session. Prognosis: Good Evaluation/Treatment Tolerance: Patient limited by pain Medical Staff Made Aware: Yes PT Education/Comments: Pt. defers sitting in bedside chair and return to bed at end of session. Pt. remains in bed upon this IPHONE DEVELOPER exiting room with tray table and call light within reach. Plan Level of assist: 1 assist Treatment/Interventions: Functional transfer training, Endurance training, Bed mo (more content not included)... [facility] 05-03-2022 Note Occupational Therapy Occupational Therapy [...] few steps with walker to and from BS. Pt was able to complete perineal hygiene) [...] Pt returned to bed at EOS Treatment time:4903-8878 Outcome Assessments AM-PAC 6 Clicks Putting on [...] Eating meals?: None (Independent) Total Score OT [facility]: 18 Assessment/Plan OT Assessment OT Impairments: Decreased [...] (Pt did not dress lower body however, sports book writer educated on use of AE for LB dressing) OT Plan: Skilled OT OT Frequency: 1 time per day until discharge & PRN OT Discharge Recommendations: halfway facility placement OT Goals: Multi-Disciplinary Problems (from [...] using adaptive technique (more content not included)... [facility] 05-03-2022 Note [facility] [place] cezar nolen. [facility] able to accept and started pre-cert. Updated pt and updated AVS. [facility] 05-03-2022 Note Attestation signed by Dillan Newby [...] discharge Michael Morales MD Orthopaedic Surgery, PGY-5 [facility] 05-02-2022 Note Sent referrals to [facility] and [facility], await replies. [facility] 05-02-2022 Note Attestation signed by Dillan [...] outpatient Milagro Davis MD Orthopaedic Surgery, PGY-1 [facility] 05-01-2022 Note Occupational Therapy Occupational Therapy Missed Visit Patient Name: Nato Short : 1970 Today's Date: 05/01/2022 Pt unable to be seen for OT tx this date d/t uncontrolled pain. Will cont to check back as able. Time: 1515 MILAN Briseno [facility] 05-01-2022 Note Received call from Jarrod Shabazz, pt needs SNF placement per therapy recommendations. Met with pt and she is agreeable to a SNF near her home. Will follow with referrals to [facility] and [facility] to check bed availability and in network. [facility] 05-01-2022 Note Physical Therapy Physical Therapy [...] Clicks T-Score: 16 Assessment/Plan PT Assessment PT Assessment/IPHONE DEVELOPER Summary: Pt. only able to minimally progress ambulation this session d/t sig. LLE pain and weakness. Pt. would benefit from cont. skilled PT to address deficits. Evaluation/Treatment Tolerance: Patient limited by pain, Patient limited by fatigue Medical Staff Made Aware: Yes PT Education/Comments: Pt. returns to right sidelying in bed after ambulation trial and remains there upon this IPHONE DEVELOPER exiting room. Pillows are placed for comfort. Tray table and call light are within reach. (more content not included)... [facility] 05-01-2022 Note Attestation signed by Dillan [...] Dr. Odin Davis MD Orthopaedic Surgery, PGY-1 [facility] 04-30-2022 Note Physical Therapy Physical Therapy [...] arrival and left up in chair upon sports book writer's exit with transport on their way [...] Level of Function Prior Function Level of Mathews: Independent with ADLs and functional transfers, Independent with homemaking with ambulation ADL Assistance: Independent Homemaking Assistance: Independent Prior Function Comments: Pt reports using RW for ambulation around home prior to hospital admit. Independent with all mobility, ADLs and homemaking previously. Pt also receiving [facility] PT for back pain radiating to [...] with step-to pattern (more content not included)... [facility] 04-30-2022 Note Attestation signed by Whit [...] min OT Discharge Recommendations: Home OT vs. halfway facility placement based on progress made prior to discharge General Visit Information: General Subjective: Pt presents to [facility] on 04/29/22 for formal preoperative visit [...] Bed Mobility B (more content not included)... [facility] 04-30-2022 Note Clarified with pt th at she was active with [facility] until a few weeks ago. Advised pt that MD typically wants her to hold off on home therapy until he sees her at next follow up. Sent return referral and updated AVS. [facility] 04-30-2022 Note Attestation signed by Dillan Newby MD at 04/30/2022 10:33 AM I personally saw and examined the patient on the same date of service as resident/fellow Michael morales. I discussed the findings and therapeutic plan with the resident/fellow Michael morales. I agree with the documentation, except for any edits/updates below. Teaching Physician's Revisions: Dillan Odin Orthopaedic Surgery Orthopaedic Surgery Progress Note Date: [...] tomorrow Michael Morales MD Orthopaedic Surgery, PGY-5 [facility] 04-29-2022 Note Assessment completed at bedside with pt. Pt lives at home with her son (whom works midnights), in a trailer, with three steps to get inside. Pt owns a cane, RW, and shower chair. Pt reported being active with [facility], hx of OP PT at [facility], and denied hx of SNF or IPR. Pt plans to DC home and continue with [facility], will be transported by son, and has no current needs at this time. [facility] 04-29-2022 Note Patient: Nato Short Procedure Summary Date: 04/29/22 Room / Location: [facility] OPERATING ROOM 12 / [facility] Operating Room Anesthesia Start: 806 Anesthesia [...] for transfer to floor. Liz Fernandez MD Network/Telecom Engineer PGY-2 04/29/2022 12:08 PM [facility] 04-29-2022 Note Airway Date/Time: 04/29/2022 8:18 AM Urgency: elective Airway not difficult General Information and Staff Patient location during procedure: OR Anesthesiologist: Capo Harris MD Resident/LATEX DIPPER/CAA: ALONDRA Zuniga Performed: resident/LATEX DIPPER/ALONDRA Indications and Patient Condition Indications for airway [...] Eyes taped after induction, before airway management [facility] 04-29-2022 Note Patient: Nato Short Procedure Information Date/Time: 04/29/22 0800 Procedures: Left L5-S1 decompression (Left: Spine Lumbar) INSTRUMENTED LUMBAR FUSION (Left: Spine Lumbar) - C-arm, Rashid Table, [employer], SSEP#[id number], reps notified. Location: [facility] OPERATING ROOM 12 / [facility] Operating Room Surgeons: Dillan Newby MD [...] Plan discussed with CAA. Additional Equipment Requests [facility] 04-21-2022 Note Attestation signed by Dillan [...] present from L4-L5 Outside MRI L-spine from [facility] performed 01/13/2022 was reviewed today and shows [...] be an additional personal documentation from me. [facility] 04-16-2022 Note EXAMINATION: XR CHES T [...] authenticated by: NAOMIE THEODORE Date: 2022-04-16 09:47 [facility] 04-07-2022 Note Chief Complaint: LBP HPI When [...] present from L5-S1 Outside MRI L-spine from [facility] performed 01/13/2022 was reviewed today and shows [...] her recent L spine CT done at [facility] so we may review it prior to surgery. We did explain that this preop L spine CT was necessitated in order to fully characterize her lesions and perform appropriate preop planning Patient is a current smoker. We advised her that she must significantly decrease her smoking or quit altogether in order to maximize the success of her surgery. She is currently on [facility] Follow up for formal preoperative visit prior to the surgical date. Furthermore, we have advised patient that she must see her PCP for formal preoperative clearance for the surgery PREOPERATIVE DIAGNOSES: L5-S1 grade I spondylolisthesis with foraminal stenosis and L5 radiculopathy (ICD-10 M43.16, M99.53, M54.16). SURGICAL PROCEDURE: 1. L5-S1 posterior lumbar spine decompression (36306). 2. L5-S1 transforaminal lumbar interbody fusion using autograft, crushed cancellous allograft, and threaded bone dowel spacer and posterolateral fusion using autograft, crushed cancellous allograft (45012, 43200). 3. L5-S1 instrumentation using USS system from [employer] (34546). 4. Local bone autograft harvesting and use of crush cancellous allograft (72030, 93284). 5. Use of intraoperative fluoroscopy (74642). James Iyer MD Orthopedic Surgery, PGY-3 [facility] Pager: [phone] 04/07/22 1:23 PM By using the attestations below, the signing clinician ghanshyam (more content not included)... [facility] 03-24-2022 Note Chief Complaint: LBP HPI [...] 600 TID Follow up after the MRI [facility] 02-24-2022 Miscellaneous Notes Initial Office Visit [...] Jane Carpenter Ma documented in this encounter [facility] 02-12-2022 Miscellaneous Notes XR and MRI results were sent to patient's mailing address. documented in this encounter [facility] 02-02-2022 Miscellaneous Notes Called patient, verified [...] will have my daughter take me to [facility] ER and call you tomorrow with an update. Can we call patient and get current description of her pain. The purpose of trial of LESI is to see if this would improve her current pain symptoms Yasmeen Azul APRN.CNP documented in this encounter [facility] 02-02-2022 Miscellaneous Notes Called patient, left [...] in the ED. documented in this encounter [facility] 01-27-2022 Miscellaneous Notes Order was faxed and received confirmation. For patient to continue Mobic recommend check BMP prior to refilling it Yasmeen Azul APRN.NATACHA documented in this encounter [facility] 01-14-2022 Miscellaneous Notes Please schedule a [...] January 14, 2022 documented in this encounter [facility] 01-13-2022 Note HNO ID: [id number] Author: Salbador Palacios, primary grade teacher Service: Radiology Author Type: Cookie Mixer Helper Type: Progress Notes Filed: 01/13/2022 2:51 PM [...] DATA: Not applicable SIGNED BY: Salbador Palacios Bawte January 13, 2022 2:50 PM [facility] 01-13-2022 History of Present illness Narrative Radiology [...] DATA: Not applicable SIGNED BY: Salbador Palacios Bawte January 13, 2022 2:50 PM documented in this encounter [facility] 12-29-2021 Miscellaneous Notes PLAN: initial OV [...] Lazarus Johnson MD documented in this encounter [facility] 12-21-2021 Note HNO ID: [id number] Author: Cash Kang RT(R) Service: ? Author [...] 21, 2021 TIME: 1:20 PM PAGER/CONTACT #: [facility] 12-21-2021 History of Present illness Narrative RADIOLOGY SERVICE PROGRESS NOTE DATE OF SERVICE: December 21, 2021 TIME OF SERVICE: 1:20 pm EVENT: EXAM/PROCEDURE NOT COMPLETED - Patient became claustrophobic, reaction was: Moderate. ADDITIONAL EVENT DETAILS: no images acquired for mri t,l-spine SIGNATURE: RT Adele(R) PATIENT NAME: Nato Short DATE: December 21, 2021 TIME: 1:20 PM PAGER/CONTACT #: documented in this encounter [facility] 12-03-2021 Note HNO ID: [id number] Author: RT Elda(Nicky) Service: ? Author Type: [...] RT Elda(Nicky) December 03, 2021 4:38 PM [facility] 12-03-2021 Note HNO ID: [id number] Author: Lazarus Johnson MD Service: ? Author [...] supervised home exercise program (HEP): No 5. Acquisition Marketing Manager: No Passive conservative therapy lasting 6 weeks in the last six months (see below) 1. Medical devises: No 2. Acupuncture: No 3. Tens unit: No 4. Prescription pain medication: No 5. 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 EXAMINATION: [id number]: Scoliosis: No Pelvic Tilt: No Leg Length [...] normal and s (more content not included)... [facility] 12-03-2021 History of Present illness Narrative Radiology [...] 2021 4:38 PM documented in this encounter [facility] 12-03-2021 History of Present illness Narrative SUBJECTIVE: Ms. Short a 51 year old female referred by Self Referred presents with the complaint of low back pain. She wants to know if she is a candidate for SCS (saw [employer] website). Patient reports the date of onset [...] supervised home exercise program (HEP): No 5. Acquisition Marketing Manager: No Passive conservative therapy lasting 6 weeks in the last six months (see below) 1. Medical devises: No 2. Acupuncture: No 3. Tens unit: No 4. Prescription pain medication: No 5. 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 EXAMINATION: [id number]: Scoliosis: No Pelvic Tilt: No Leg Length [...] DDD. She has seen Dr. Montero in [place] - with no improvement after LESI and radiof frequency with no effect. Has had PT different series since 2017. She saw Dr. Hidalgo in [place] who referred to Dr. Perez because of [...] which included preparing to see the patient, lnnp-en-avfs patient care, completing clinical documentation, obtaining and/or reviewing separately obtained history, performing a medically appropriate examination, counseling and educating the patient/family/caregiver, ordering medications, tests, or procedures, communicating with other HCPs (not separately reported) and independently interpreting results (not separately reported). Lazarus Johnson MD documented in this encounter [facility] 12-02-2021 Miscellaneous Notes Patient was advised of the following: This is a follow up phone call regarding your appointment with Dr Johnson, which you are scheduled to see at [facility] on 12/03/2021 1) Have you been evaluated [...] need to reschedule please call us at [phone]. Left VM with new patient policy advised tpo call office with any questions or concerns'Keren Rosales MA documented in this encounter [facility] 11-19-2021 Note PROCEDURE: XR FOOT L [...] by: ZACH PEREZ Date: 2021-11-19 16:43 [facility] Evaluation note Diagnosis Degeneration of lumbar or lumbosacral intervertebral disc- Primary Radiculopathy of lumbar region Thoracic or lumbosacral neuritis or radiculitis, unspecified Radicular pain of left lower extremity Thoracic or lumbosacral neuritis or radiculitis, unspecified Discogenic low back pain Lumbago Hyperglycemia Other abnormal glucose History of fusion of cervical spine Arthrodesis status [facility] [place] [facility] Diagnosis Radiculopathy of lumbar region- Primary Thoracic or lumbosacral neuritis or radiculitis, unspecified Lumbar disc herniation Displacement of lumbar intervertebral disc without myelopathy [facility] [place] [facility] Diagnosis Lumbar disc herniation- Primary Displacement [...] spine Arthrodesis status [facility] [place] [facility] Diagnosis Radiculopathy of lumbar region Thoracic or lumbosacral neuritis or radiculitis, unspecified Degeneration of lumbar or lumbosacral intervertebral disc Radicular pain of left lower extremity Thoracic or lumbosacral neuritis or radiculitis, unspecified Discogenic low back pain Lumbago documented in this encounter [facility] for referral (narrative)* Diagnostic Procedure Only (Routine) - Closed Specialty Diagnoses / Procedures Referred By Contac t Referred To Contact XR IMAGING Diagnoses Radiculopathy of lumbar region Degeneration of lumbar or lumbosacral intervertebral disc Radicular pain of left lower extremity Discogenic low back pain Procedures XR LUMBAR GENERAL 3V AP/LAT/L5-S1 RADEX SPINE LUMBOSACRAL 2/3 VIEWS Lazarus Johnson MD [address] [place] [address] Xr Imaging Referral ID Status Reason Start Date Expiration Date V isits Requested Visits Authorized [id number] Closed Auto-Generate d Referral 12/03/2021 01/02/2023 1 1 [facility] Summary Purpose Family History No Family [...] W/O CONTRAST MATERIAL Lazarus Johnson MD [address] [place] [address] Mr Imaging Referral ID Status Reason Start Date Expiration Date Visits Requested Visits Authorized [id number] Authorized Auto-Generat ed Referral 12/03/2021 12/21/2021 1 1 Specialty Diagnoses / Procedures Referred By Contac t Referred To Contact MR IMAGING Diagnoses Radiculopathy of lumbar region Procedures MRI THORACIC SPINE WO IVCON MRI SPINAL CANAL THORACIC W/O CONTRAST MATRL Lazarus Johnson MD [address] [place] [address] Mr Imaging Referral ID Status Reason Start Date Expiration Date Visits Requested Visits Authorized [id number] Authorized Auto-Generat ed Referral 12/03/2021 12/21/2021 1 1 Specialty Diagnoses / Procedures Referred By Contac t Referred To Contact XR IMAGING Diagnoses Radiculopathy of lumbar region Degeneration of lumbar or lumbosacral intervertebral disc Radicular pain of left lower extremity Discogenic low back pain Procedures XR LUMBAR GENERAL 3V AP/LAT/L5-S1 RADEX SPINE LUMBOSACRAL 2/3 VIEWS Lazarus Johnson MD [address] [place] [address] Xr Imaging Referral ID Status Reason Start Date Expiration Date V isits Requested Visits Authorized [id number] Closed Auto-Generate d Referral 12/03/2021 01/02/2023 1 1 Specialty Diagnoses / Procedures Referred By Contac t Referred To Contact Diagnoses Radiculopathy of lumbar region Lumbar disc herniation Procedures CONSULT TO SPINE SURGERY OFFICE/OUTPATIENT [facility] 60-74 MINUTES Lindy Gunderson PA-C [address] [place] [address] Referral ID Status Reason Start Date Expiration Date Visits Requested Visits Authorized [id number] Authorized PCP Requested Referral 01/14/2022 01/14/2023 1 1 Additional Source Comments INFORMATION SOURCE (unrecogn ized section and content) DATE CREATED AUTHOR 10/22/2020 [facility] DATE CREATED AUTHOR AUTHOR'S ORGANIZ ATION 01/29/2022 [facility] DATE CREATED AUTHOR AUTHOR'S ORGANIZ ATION 03/04/2022 [facility] DATE CREATED AUTHOR AUTHOR'S ORGANIZ ATION 07/21/2022 [facility] [place] [facility] DATE CREATED AUTHOR AUTHOR'S ORGANIZ ATION [facility]20[facility] DATE CREATED AUTHOR AUTHOR'S ORGANIZ ATION 03/15/2023 [facility] DATE CREATED AUTHOR AUTHOR'S ORGANIZ ATION 09/06/[address] [facility] Special[facility] EPIC Source Comments (unrecognize d section and content) In the event this informatio n is protected by the Federal Confidentiality of Alcohol and Drug Abuse Patient Records regulations: The Federal rules restrict any use of the information to criminally investigate or prosecute any alcohol or drug abuse patient.[facility] the event this information is protected by the Federal Confidentiality of Alcohol and Drug Abuse Patient Records regulations: The Federal rules restrict any use of the information to criminally investigate or prosecute any alcohol or drug abuse patient.[facility] the event this information is protected by the Federal Confidentiality of Alcohol and Drug Abuse Patient Records regulations: The Federal rules restrict any use of the information to criminally investigate or prosecute any alcohol or drug abuse patient.[facility]In the event this information is protected by the Federal Confidentiality of Alcohol and Drug Abuse Patient Records regulations: The Federal rules restrict any use of the information to criminally investigate or prosecute any alcohol or drug abuse patient.[facility] HospitalIn the event this information is protected by the Federal Confidentiality of Alcohol and Drug Abuse Patient Records regulations: The Federal rules restrict any use of the information to criminally investigate or prosecute any alcohol or drug abuse patient.[facility] HospitalIn the event this information is protected by the Federal Confidentiality of Alcohol and Drug Abuse Patient Records regulations: The Federal rules restrict any use of the information to criminally investigate or prosecute any alcohol or drug abuse patient.[facility] HospitalIn the event this information is protected by the Federal Confidentiality of Alcohol and Drug Abuse Patient Records regulations: The Federal rules restrict any use of the information to criminally investigate or prosecute any alcohol or drug abuse patient.[facility] HospitalIn the event this information is protected by the Federal Confidentiality of Alcohol and Drug Abuse Patient Records regulations: The Federal rules restrict any use of the information to criminally investigate or prosecute any alcohol or drug abuse patient.[facility] HospitalIn the event this information is protected by the Federal Confidentiality of Alcohol and Drug Abuse Patient Records regulations: The Federal rules restrict any use of the information to criminally investigate or prosecute any alcohol or drug abuse patient.[facility] HospitalIn the event this information is protected by the Federal Confidentiality of Alcohol and Drug Abuse Patient Records regulations: The Federal rules restrict any use of the information to criminally investigate or prosecute any alcohol or drug abuse patient.[facility] HospitalIn the event this information is protected by the Federal Confidentiality of Alcohol and Drug Abuse Patient Records regulations: The Federal rules restrict any use of the information to criminally investigate or prosecute any alcohol or drug abuse patient.[facility] HospitalIn the event this information is protected by the Federal Confidentiality of Alcohol and Drug Abuse Patient Records regulations: The Federal rules restrict any use of the information to criminally investigate or prosecute any alcohol or drug abuse patient.[facility] HospitalIn the event this information is protected by the Federal Confidentiality of Alcohol and Drug Abuse Patient Records regulations: The Federal rules restrict any use of the information to criminally investigate or prosecute any alcohol or drug abuse patient.[facility] Reason for Visit (unrecogniz ed section and content) Reason Comments Radiology MRI Specialty Diagnoses / Procedures Referred By Contac t Referred To Contact MR IMAGING Diagnoses Radiculopathy of lumbar region Procedures MRI THORACIC SPINE WO IVCON MRI SPINAL CANAL THORACIC W/O CONTRAST MATRL Lazarus Johnson MD [address] [facility] [place] [address] [place] [address] Referral ID Status Reason Start Date Expiration Date V isits Requested Visits Authorized [id number] Closed Auto-Generate d Referral 12/23/2021 06/26/2022 1 [...] LUMBOSACRAL 2/3 VIEWS Lazarus Johnson MD [address] [place] [address] Xr Imaging Referral ID Status Reason Start Date Expiration Date V isits Requested Visits Authorized [id number] Closed Auto-Generate d Referral 12/03/2021 01/02/2023 1 [...] BE BASED ON THE PRIMARY CLINICAL RECORDS. [employer] provides no warranty or guarantee of the accuracy or completeness of information in this document.
[2023-12-12 17:21] LABS: Basophils Absolute Auto 0.1 10^3/uL (0.0-0.1); Basophils Percent Auto 0.6 % (0.2-2.0); Eosinophils Absolute Auto 0.2 10^3/uL (0.0-0.7); Eosinophils Percent Auto 1.4 % (0.9-7.0); Hematocrit 42.2 % (36.0-48.0); Hemoglobin 13.8 g/dL (12.0-16.0); Immature Granulocytes Abs Auto 0.05 10^3/uL (0.00-0.03); Immature Granulocytes Pct Auto 0.5 % (0.0-0.5); Lymphocytes Absolute Auto 3.5 10^3/uL (1.2-3.8); Mean Corpuscular HGB Conc 32.7 g/dL (29.9-35.2); Mean Corpuscular Hemoglobin 31.1 pg (26.7-34.0); Mean Platelet Volume 9.1 fL (9.5-13.5); Monocytes Absolute Auto 0.7 10^3/uL (0.3-0.8); Monocytes Percent Auto 6.1 % (1.7-12.0); Neutrophils Absolute Auto 6.4 10^3/uL (1.4-6.5); Neutrophils Percent Auto 59.4 % (43.0-75.0); Platelet Count 309 10^3/uL (150-450); Red Blood Count 4.44 10^6/uL (4.20-5.40); Red Cell Distribution Width 15.2 % (11.0-15.0); White Blood Count 10.8 10^3/uL (4.0-11.0)
[2023-12-12 17:39] LABS: Alanine Aminotransferase 18 U/L (14-59); Albumin Globulin Ratio 1.2; Alkaline Phosphatase 88 U/L (46-116); Aspartate Amino Transferase 11 U/L (15-37); BUN Creatinine Ratio 17.1; Bilirubin Total 0.3 mg/dL (0.2-1.0); Carbon Dioxide 30.7 mmol/L (21.0-32.0); Chloride 102 mmol/L (98-107); Estimated GFR (African America >60 (>=60); Estimated GFR (Non-African Ame 55 (>=60); Free T3 1.04 pg/mL (2.18-3.98); Globulin 3.3 g/dL; Glucose 108 mg/dL (74-106); Potassium 3.7 mmol/L (3.5-5.1); Sodium 138 mmol/L (136-145); Thyroid Stimulating Hormone 121.244 uIU/mL (0.358-3.740); Total Protein 7.3 g/dL (6.4-8.2)
[2023-12-12 18:06] LABS: Free T4 0.52 ng/dL (0.76-1.46)
== END 2023-12-12 16:54 | disposition home or self-care (01) ==
LOC: LAB 16:55
PROVIDERS: PCP Nurse Practitioner; Visit Provider Nurse Practitioner
DX: E78.2 Mixed hyperlipidemia (principal); E03.9 Hypothyroidism, unspecified; R53.83 Other fatigue
CPT/HCPCS: 36415; 80053; 80061; 84439; 84443; 84450; 84460; 84481; 85025

== ENCOUNTER 2023-12-15 16:59 | Outpatient (OUT) | payer OTHER, SELFPAY ==
--- NOTE | 2023-12-15 | US_ITS ---
The [address] [address] Patient Name: NATO SHORT MRN: [id number] date: 1970 Sex: F Assigned Patient Location: US Current Patient Location: Accession/Order Number: [id number] Exam Date: 12/15/2023 17:06 Report Date: 12/16/2023 12:57 At the request of: KEL FOWLER Procedure: US thyroid EXAMINATION: US thyroid HISTORY: Hypothyroid, abnormal TSH COMPARISON: No relevant comparison available. TECHNIQUE: Sonographic images of the thyroid gland were obtained. FINDINGS: The right thyroid lobe measures 4.8 x 1.2 x 1.5 cm. Heterogeneous echotexture. 2 focal nodules. The thyroid isthmus measures 1.2 mm. Heterogeneous. The left thyroid lobe measures 4.9 x 1.2 x 1.4 cm. Heterogeneous echotexture. Single nodule. The 2 most suspicious nodules: Nodule 1: Right thyroid lobe. 1.4 x 0.9 x 0.9 cm. Solid, hypoechoic, wide, smooth margins, no consultations. TR 4 Nodule 2: Left thyroid lobe. 1.3 x 1.6 x 1 0.9 cm. Solid, hypoechoic, wide, smooth margins, no calcifications. TR 4 US/US thyroid IMPRESSION: Multinodular thyroid gland TI-RADS: The [employer] TI-RADS committee's white paper recommendations for thyroid lesions classified as TR4 (moderately suspicious) are listed below: > 1.0 cm. Follow-up ultrasound in 1, 2, 3, and 5 years. > 1.5 cm. FNA. J. Am Jeanne Radiol 2017;14:[id number]. Electronically authenticated by: NAOMIE THEODORE Date: 12/16/2023 12:57
== END 2023-12-15 17:00 | disposition home or self-care (01) ==
LOC: US 16:59
PROVIDERS: PCP Nurse Practitioner; Visit Provider Nurse Practitioner
DX: E03.9 Hypothyroidism, unspecified (principal); E06.3 Autoimmune thyroiditis; E04.2 Nontoxic multinodular goiter
CPT/HCPCS: 76536

== ENCOUNTER 2024-01-04 16:15 | Outpatient (OUT) | payer OTHER, SELFPAY ==
[2024-01-04 17:12] LABS: Thyroid Stimulating Hormone 1.637 uIU/mL (0.358-3.740)
== END 2024-01-04 16:16 | disposition home or self-care (01) ==
LOC: LAB 16:19
PROVIDERS: PCP Nurse Practitioner; Visit Provider Nurse Practitioner
DX: E06.3 Autoimmune thyroiditis (principal); E03.9 Hypothyroidism, unspecified
CPT/HCPCS: 36415; 84439; 84443; 84481

== ENCOUNTER 2024-03-07 16:48 | Outpatient (OUT) | payer OTHER, SELFPAY ==
[2024-03-07 17:51] LABS: Free T3 2.08 pg/mL (2.18-3.98); Thyroid Stimulating Hormone 14.169 uIU/mL (0.358-3.740)
[2024-03-07 17:55] LABS: Free T4 1.06 ng/dL (0.76-1.46)
== END 2024-03-07 16:49 | disposition home or self-care (01) ==
PROVIDERS: PCP Nurse Practitioner; Visit Provider Nurse Practitioner
DX: E06.3 Autoimmune thyroiditis (principal); E03.9 Hypothyroidism, unspecified
CPT/HCPCS: 36415; 84439; 84443; 84481

== ENCOUNTER 2024-05-10 16:05 | Outpatient (OUT) | payer OTHER, SELFPAY ==
--- OUTSIDE RECORDS SUMMARY | 2024-05-10 16:20 | XMS_ITS | CCD ---
Author Organization [facility] Care Team Providers Care Office Machine Punch Operator Name Role Phone Unavailable Primary Care Provider Unavailabl e AICHHOLZ, ROW BOSS WHIT Consulting Unavailable AICHHOLZ, ROW BOSS WHIT Attending Unavailable AICHHOLZ, ROW BOSS WHIT Admitting Unavailable AICHHOLZ, ROW BOSS WHIT Primary Care Unavailable AICHHOLZ, ROW BOSS WHIT Admitting Unavailable AICHHOLZ, ROW BOSS WHIT Primary Care Unavailable AICHHOLZ, ROW BOSS WHIT Consulting Unavailable AICHHOLZ, ROW BOSS WHIT Attending Unavailable AICHHOLZ, ROW BOSS WHIT Admitting Unavailable AICHHOLZ, ROW BOSS WHIT Primary Care Unavailable AICHHOLZ, ROW BOSS WHIT Attending Unavailable DR NAOMIE THEODORE V Consulting Unavailable AICHHOLZ, ROW BOSS WHIT Consulting Unavailable DR TANMAY BLANC Admitting Unavailable AICHHOLZ, ROW BOSS WHIT Primary Care Unavailable JAYASHREE, DR DONATO Attending Unavailable AICHHOLZ, ROW BOSS WHIT Admitting Unavailable AICHHOLZ, ROW BOSS WHIT Primary Care Unavailable AICHHOLZ, ROW BOSS WHIT Attending Unavailable AICHHOLZ, ROW BOSS WHIT Primary Care Unavailable DR FIDEL SMITH Attending Unavailable DR FIDEL SMITH Admitting Unavailable DR NAOMIE THEODORE V Consulting Unavailable DR FIDEL SMITH Consulting Unavailable HEIDI MEJIAS Consulting Unavailable Naomie Velasquez Consulting Unavailable SISTER, TE Consulting Unavailable AICHHOLZ, ROW BOSS WHIT Primary Care Unavailable ONEIL LOPEZ Consulting Unavailable ONEIL LOPEZ Attending Unavailable ONEIL LOPEZ Admitting Unavailable Naomie Velasquez Consulting Unavailable DR MEY FARNSWORTH Attending Unavailable JAVAD, DR MATHIAS Admitting Unavailable AICHHOLZ, ROW BOSS WHIT Primary Care Unavailable DR MEY FARNSWORTH Consulting Unavailable AICHHOLZ, ROW BOSS WHIT Primary Care Unavailable DR LANDEN HEARN Consulting Unavailable DIOGENES MILLER Attending Unavailable ANGELA, DIOGENES Admitting Unavailable ZIA DESAI Consulting Unavailable AICHHOLZ, ROW BOSS WHIT Admitting Unavailable AICHHOLZ, ROW BOSS WHIT Consulting Unavailable AICHHOLZ, ROW BOSS WHIT Attending Unavailable MACK GUAMAN Primary Care Unavailable Naomie Velasquez Consulting Unavailable AICHHOLZ, ROW BOSS WHIT Primary Care Unavailable LING GAMING Attending Unavailable LING GAMING Admitting Unavailable DR ZACH PEREZ Consulting Unavailable LING GAMING Consulting Unavailable AICHHOLZ, ROW BOSS WHIT Admitting Unavailable AICHHOLZ, ROW BOSS WHIT Primary Care Unavailable AICHHOLZ, ROW BOSS WHIT Attending Unavailable AICHHOLZ, ROW BOSS WHIT Primary Care Unavailable AICHHOLZ, ROW BOSS WHIT Admitting Unavailable AICHHOLZ, ROW BOSS WHIT Consulting Unavailable AICHHOLZ, ROW BOSS WHIT Attending Unavailable Unavailable Primary Care Provider Unavailnia e AICHHOLZ, WHIT JSugey Primary Care Unavailable ELGAFHaider, LAINE K Referring Unavailable AICHHOLZ, WHIT Attending Unavailable AICHHOLZ, WHIT Attending Unavailable AICHHOLZ, WHIT Attending Unavailable AICHHOLZ, WHIT Attending Unavailable AICHHOLZ, WHIT Attending Unavailable CAMPBELL HANSEN Attending Unavailable AICHHOLZ, WHIT Referring Unavailable AICHHOLZ, WHIT Attending Unavailable AICHHOLZ, WHIT Attending Unavailable AICHHOLZ, WHIT Attending Unavailable Fidel Smith MD Primary Care Provider [phone] ELGADUC LAINE Attending Unavailable ELGAFY, LAINE Referring Unavailable Allergies Allergy Classification Reported Allergen(s) Allergy Type Date of Onset Reaction(s) Facility (3 sources) Penicillins; Translations: [PENICILLINS] Drug Allergy 3 Swelling [facility] (11 sources) Penicillins Drug Allergy 3 Swelling [facility] (2 sources) Penicillins Drug allergy (disorder) 3 [facility] (6 sources) Chlorhexidine; Translations: [CHLORHEXIDINE] Drug Allergy 2 Itching [facility] (5 sources) Penicillin G Drug Allergy 3 Swelling, Rash [facility] (5 sources) Penicillins Drug Allergy 3 Rash, Swelling [facility] (1 source) Chlorhexidine; Translations: [CHLORHEXIDINE GLUCONATE] Drug Allergy [address] [facility] Repository Medications Current Medications Medication Drug Class(es) Dates Sig (Normalized) Sig (Original) acetaminophen 325 mg / HYDROcodone bitartrate 5 mg oral tablet (3 sources) Opioid Agonist Start: 03-26-2024 End: 03-31-2024 take 1 tablet by mouth every eight hours for pain HYDROcodone-acetami nophen ([place]) 5-325 MG tablet Indications: Cervical radiculopathy Take 1 tablet by mouth every 8 (eight) hours if needed for severe pain for up to 5 days 15 tablet 03/26/2024 03/31/2024 Active [id number] actuat albuterol 0.09 mg/actuat metered dose inhaler (17 sources) beta2-Adrenergic Agonist Start: 05-24-2023 take 2 puff(s) by inhalation every four hours for wheezing albuterol HFA 90 mcg/act inhaler Indications: Wheezing Inhale 2 puffs every 4 (four) hours if needed for wheezing. 18 g 1 05/24/2023 Active Start: 11-10-2021 take 2 puff(s) by mo uth every four to six hours as needed for wheezing VENTOLIN HFA 90 mcg/actuation inhaler INHALE 2 PUFFS BY MOUTH EVERY 4-6 HOURS NEEDED FOR WHEEZING OR SHORTNESS OF BREATH 0 11/10/2021 Active Comment on above: INHALE 2 PUFFS BY MO UTH EVERY 4-6 HOURS NEEDED FOR WHEEZING OR SHORTNESS OF BREATH amitriptyline hydrochloride 10 mg oral tablet (4 sources) Tricyclic Antidepressant Start: End: take 1 tablet by mouth at bedtime amitriptyline (Elavil) 10 MG tablet Indications: Migraine with aura and without status migrainosus, not intractable (CMS/HCC) , Primary insomnia Take 1 tablet (10 mg) by mouth at bedtime 30 tablet 1 03/28/2024 Active atorvastatin 20 mg oral tablet (5 sources) HMG-CoA Reductase Inhibitor Start: End: take 1 tablet by mouth at bedtime atorvastatin (Lipitor) 20 MG tablet Indications: Mixed hyperlipidemia (CMS/HCC) Take 1 tablet (20 mg) by mouth at bedtime 30 tablet 2 03/21/2024 Active ciclopirox 80 mg/ml topical solution (14 sources) Start: End: ciclopirox (Penlac) 8 % solution Indications: Onychomycosis Apply topically at bedtime 6.6 mL 11 02/23/2024 03/28/2024 Active Start: 10-22-2021 Ciclopirox (LO PROX) 8 % solution Apply jublia TO affected toenails ONCE daily FOR 48 WEEKS 0 10/22/2021 Active Comment on above: Apply jublia TO affe cted toenails ONCE daily FOR 48 WEEKS hydrocortisone 0.025 mg/mg topical ointment (5 sources) Corticosteroid Start: hydrocortisone 2.5 % ointment Indications: Allergic contact dermatitis due to cosmetics Apply topically 2 (two) times a day 20 g 11 02/22/2024 Active levothyroxine sodium 0.175 mg oral tablet (18 sources) l-Thyroxine Start: End: take 1 tablet by mouth before mealtime levothyroxine (Synthroid, Levoxyl) 175 MCG tablet Indications: Hypothyroidism (acquired) (CMS/HCC) Take 1 tablet (175 mcg) by mouth in the morning. Take before meals. 30 tablet 2 03/07/2024 Active Start: 08-17-2021 levothyroxine 150 mcg cap End: 12-03-2021 levothyroxine (SYNTHROID) 11 2 mcg tablet Take 112 mcg by mouth. 0 12/03/2021 Discontinued Comment on above: Take 112 mcg by mout h. nystatin [id number] unt/ml oral suspension (1 source) Polyene Antifungal Start: 04-12-20 End: 04-26-20 nystatin (Mycostatin) [id number] UNIT/ML suspension Indications: Oral thrush Take 5 mL (500,000 Units) by mouth in the morning and 5 mL (500,000 Units) at noon and 5 mL (500,000 Units) in the evening and 5 mL (500,000 Units) before bedtime. Do all this for 14 days. Swish around in mouth, retain for as long as possible then spit out. 280 mL 04/12/2024 04/26/2024 Active omeprazole 40 mg delayed release oral capsule (18 sources) Proton Pump Inhibitor Start: 02-13-20 End: 06-03-20 take 1 capsule by mouth in the morning omeprazole (PriLOSEC) [address] capsule Indications: Gastroesophageal reflux disease, unspecified whether esophagitis present Take 1 capsule (40 mg) by mouth in the morning and 1 capsule (40 mg) in the evening. Take before meals. 60 capsule 2 05/04/2024 06/03/2024 Active omeprazole (PRIL OSEC) 40 mg capsule Take 40 mg by mouth. 0 Active Comment on above: Take 40 mg by mouth. predniSONE 10 mg oral tablet (3 sources) Start: 03-26-20 End: 04-07-20 take 1 tablet by mouth once daily, then take 2 tablets by mouth three times daily, then take 2 tablets by mouth twice daily, then take 1 tablet by mouth twice daily, then take 1 tablet by mouth once daily at mealtime predniSONE (Deltasone) 10 MG tablet Indications: Cervical radiculopathy Take 1 tablet (10 mg) by mouth Daily for 12 days 2 pills 3 times daily for 3 days, then 2 pills 2 times daily for 3 days, then 1 pill 2 times daily for 3 days, and then 1 pill daily for 3 days. Take with food 39 tablet 03/26/2024 04/07/2024 Active terbinafine hydrochloride 10 mg/ml topical cream (5 sources) Allylamine Antifungal Start: 02-22-20 terbinafine (LamISIL AT) 1 % cream Indications: Tinea pedis of left foot Apply topically 2 (two) times a day 42 g 11 02/22/2024 Active tiZANidine 4 mg oral tablet (15 sources) Central alpha-2 Adrenergic Agonist Start: 03-09-20 End: 04-08-20 take 1 tablet by mouth every eight hours as needed tiZANidine (Zanaflex) 4 MG tablet Take 4 mg by mouth every 8 (eight) hours if needed 03/09/2024 04/08/2024 Active Start: 11-10-2021 End: 03-23-2022 take 1 tablet by mouth once daily at bedtime tiZANidine (ZANAFLEX) 4 mg tablet Take 1 tablet by mouth daily at bedtime. 30 tablet 2 12/23/2021 03/23/2022 Comment on above: TAKE 1 TABLET BY ISAAK TH AT BEDTIME, MAY CAUSE DROWSINESS Take 1 tablet by isaak th daily at bedtime. ubrogepant 100 mg oral tablet (3 sources) Start: 03-28-2024 End: 04-27-2024 take 1 tablet by mouth once daily as needed Ubrogepant (Ubrelvy) 100 MG tablet Indications: Migraine with aura and without status migrainosus, not intractable (CMS/HCC) Take 100 mg by mouth Daily as needed (migraine LACY) 15 tablet 03/28/2024 04/27/2024 Active Completed/Discontinued Medications Medication Drug Class(es) Dates Sig (Normalized) Sig (Original) betamethasone 0.5 mg/ml / clotrimazole 10 mg/ml [...] Take 10 mg by mouth once daily. cyclobenzaprine hydrochloride 10 mg oral tablet (3 sources) Muscle Relaxant Start: 02-14-2024 End: 03-28-2024 cyclobenzaprine (Flexeril) 10 MG tablet Indications: Lumbar radiculopathy Take 1 tablet (10 mg) by mouth as needed at bedtime for muscle spasms 30 tablet 1 02/14/2024 03/28/2024 Discontinued (Therapy completed) End: 12-03-2021 cyclobenzaprine (FLEXERIL) 1 0 mg tablet Take 10 mg by mouth. 0 12/03/2021 Discontinued Comment on above: Take 10 mg by mouth. DULoxetine 60 mg delayed release oral capsule (5 sources) Serotonin and Norepinephrine Reuptake Inhibitor Start: 4 End: take 1 capsule by mouth once daily DULoxetine (Cymbalta) [address] capsule Indications: Anxiety and depression (CMS/HCC) Take 1 capsule (60 mg) by mouth Daily Discontinue the 30mg script 90 capsule 1 01/10/2024 Active gabapentin 300 mg oral capsule (7 sources) Anti-epileptic Agent Start: 2 End: gabapentin (NEURONTIN) 300 mg capsule Take one [...] take one capsule three times a day. liothyronine sodium 0.005 mg oral tablet (1 source) l-Triiodothyronine End: liothyronine (CYTOMEL) 5 mcg tablet Take 5 mcg by mouth. 0 12/03/2021 Discontinued Comment on above: Take 5 mcg by mouth. meloxicam 15 mg oral tablet (12 sources) Nonsteroidal Anti-inflammatory Drug Start: take 1 tablet by mouth once daily meloxicam (MOBIC) 15 mg tablet Take 15 mg by mouth once daily. 0 11/19/2021 Active Comment on above: Take 15 mg by mouth once daily. phentermine hydrochloride 37.5 mg oral tablet (3 sources) Sympathomimetic Amine Anorectic Start: End: take 1 tablet by mouth before mealtime phentermine (Adipex-P) 37.5 MG tablet Indications: Morbid obesity due to excess calories (CMS/HCC) Take 1 tablet (37.5 mg) by mouth in the morning. Take before meals. 30 tablet 02/29/2024 03/28/2024 Discontinued (Ineffective) 0.5 ml SUMAtriptan 12 mg/ml injection (3 sources) Serotonin-1b and Serotonin-1d Receptor Agonist End: inject 6 mg by subcutaneous injection once SUMAtriptan (Imitrex) 6 MG/0.5ML solution Inject 6 mg under the skin 1 (one) time if needed for migraine. 03/28/2024 Discontinued (Therapy completed) traZODone hydrochloride 50 mg oral tablet (3 sources) Serotonin Reuptake Inhibitor Start: End: take 2 tablets by mouth at bedtime traZODone (Desyrel) 50 MG tablet Indications: Primary insomnia Take 2 tablets (100 mg) by mouth at bedtime 180 tablet 1 03/15/2024 03/28/2024 Discontinued (Ineffective) Problems Active Problems Problem Classification Problem Date Documented Date Episodic/Chronic Anxiety disorders (5 sources) Mixed anxiety and depressive disorder; Translations: [Anxiety disorder, unspecified] Onset: 05-24-2023 05-24-2023 Chronic Cardiac dysrhythmias (5 sources) Supraventricular tachycardia; Translations: [Supraventricular tachycardia, unspecified] Onset: 09-05-2023 03-08-2024 Chronic Chronic obstructive pulmonary disease and bronchiectasis (1 source) Chronic obstructive pulmonary disease with (acute) exacerbation; Translations: [COPD WITH ACUTE EXACERBATION] Onset: 01-18-2022 Chronic Complications of surgical procedures or medical care (5 sources) Disruption of wound, unspecified, initial encounter; Translations: [Pseudarthrosis after fusion or arthrodesis] Onset: 05-30-2022 Episodic Diabetes mellitus without complication (1 source) Hyperglycemia; Translations: [Hyperglycemia, unspecified] Episodic Disorders of lipid metabolism (5 sources) Mixed hyperlipidemia; Translations: [Mixed hyperlipidemia] Onset: 09-05-2023 09-05-2023 Chronic Esophageal disorders (6 sources) Gastroesophageal reflux disease; Translations: [Gastro-esophageal reflux disease without esophagitis] Onset: 05-24-2023 05-24-2023 Chronic Genitourinary symptoms and ill-defined conditions (1 source) Unspecified urinary incontinence; Translations: [UNSPECIFIED URINARY INCONTINENCE] Onset: 02-08-2022 Chronic Headache; including migraine (12 sources) Migraine with aura; Translations: [Migraine with aura, not intractable, without status migrainosus] Onset: 09-05-2023 03-28-2024 Chronic Immunizations and screening for infectious disease (1 source) Encounter for screening for other infectious and parasitic diseases; Translations: [ENC SCREENING OTH INF PARASITIC DZ] Onset: 07-19-2022 Episodic Malaise and fatigue (5 sources) Fatigue; Translations: [Chronic fatigue, unspecified] Onset: 09-05-2023 09-05-2023 Chronic Miscellaneous mental health disorders (7 sources) Primary insomnia; Translations: [Primary insomnia] Onset: 09-05-2023 03-28-2024 Chronic Mood disorders (5 sources) Moderate recurrent major depression; Translations: [Major depressive disorder, recurrent, moderate] Onset: 09-05-2023 03-08-2024 Chronic Mycoses (18 sources) Candidiasis of skin; Translations: [Candidiasis of skin and nail] Onset: 05-24-2023 05-24-2023 Episodic Other aftercare (1 source) Other residential (current) drug therapy; Translations: [OTH ANIMAL CYTOLOGIST CURRENT DRUG THERAPY] Onset: 05-31-2022 Episodic Other circulatory disease (7 sources) Transient hypertension; Translations: [Elevated blood-pressure reading, without diagnosis of hypertension] Onset: 03-26-2024 03-28-2024 Episodic Other female genital disorders (5 sources) Simple endometrial glandular hyperplasia without atypia; Translations: [Benign endometrial hyperplasia] Onset: 09-05-2023 09-05-2023 Chronic Other nervous system disorders (5 sources) Cervical myelopathy; Translations: [Disease of spinal cord, unspecified] Onset: 11-10-2018 09-05-2023 Chronic Other nutritional; endocrine; and metabolic disorders (7 sources) Morbid obesity; Translations: [Morbid (severe) obesity due to excess calories] Onset: 09-05-2023 03-28-2024 Chronic Other upper respiratory disease (5 sources) Allergic rhinitis; Translations: [Allergic rhinitis, unspecified] Onset: 09-05-2023 09-05-2023 Chronic Residual codes; unclassified (1 source) Acquired absence of both cervix and uterus; Translations: [ACQUIRED ABSENCE BOTH CERVIX AND UTERUS] Onset: 05-31-2022 Episodic Spondylosis; intervertebral disc disorders; other back problems (20 sources) Degeneration of lumbosacral intervertebral disc; Translations: [Other intervertebral disc degeneration, lumbosacral region] Onset: 11-15-2018 Chronic Spondylosis; intervertebral disc disorders; other back problems (20 sources) Lumbar radiculopathy; Translations: [Radiculopathy, lumbar region] Onset: 11-15-2018 Episodic Substance-related disorders (8 sources) Nicotine dependence, cigarettes, uncomplicated; Translations: [Smoker] Onset: 05-31-2022 03-28-2024 Chronic Thyroid disorders (20 sources) Hypothyroidism, unspecified; Translations: [Acquired hypothyroidism] Onset: 03-08-2022 Chronic Unclassified (4 sources) CONTACT W/AND (SUSP) EXPOS COVID-19; Translations: [CONTACT W/AND (SUSP) EXPOS COVID-19] Onset: 02-08-2022 Unclassified (2 sources) LOW BACK PAIN, UNSPECIFIED; Translations: [LOW BACK PAIN, UNSPECIFIED] Onset: 02-08-2022 Unclassified (1 source) COUGH, UNSPECIFIED; Translations: [COUGH, UNSPECIFIED] Onset: 01-18-2022 Unclassified (5 sources) Patient on antidepressant monitoring plan Onset: 05-24-2023 05-24-2023 Unclassified (5 sources) Baseline PHQ-9 Onset: 05-24-2023 05-24-2023 Viral infection (4 sources) COVID-19; Translations: [COVID-19] Onset: 07-23-2021 Past or Other Problems Problem Classification Problem Date Documented Date Episodic/Chronic Allergic reactions (5 sources) Idiopathic urticaria; Translations: [Urticaria, unspecified] Onset: 09-05-2023 09-05-2023 Episodic Coma; stupor; and brain damage (5 sources) Daytime somnolence; Translations: [Somnolence] Onset: 09-05-2023 09-05-2023 Episodic Genitourinary symptoms and ill-defined conditions (5 sources) Urinary symptoms ; Translations: [Unspecified symptoms and signs involving the genitourinary system] Onset: 09-19-2023 09-19-2023 Episodic Malaise and fatigue (5 sources) Fatigue; Translations: [Other fatigue] Onset: 12-12-2023 12-12-2023 Episodic Nonmalignant breast conditions (5 sources) Lump in left breast; Translations: [Unspecified lump in the left breast, unspecified quadrant] Onset: 09-05-2023 09-05-2023 Episodic Other connective tissue disease (12 sources) History of cervical spine fusion; Translations: [Arthrodesis status] Onset: 12-14-2021 Episodic Other connective tissue disease (4 sources) Pain in left foot; Translations: [PAIN IN LEFT FOOT] Onset: 11-19-2021 Episodic Other connective tissue disease (5 sources) Radial styloid tenosynovitis; Translations: [Radial styloid tenosynovitis [de Quervain]] Onset: 09-05-2023 Resolved: 09-05-2023 09-05-2023 Episodic Other lower respiratory disease (3 sources) Shortness of breath; Translations: [SHORTNESS OF BREATH] Onset: 01-14-2022 Episodic Other screening for suspected conditions (not mental disorders or infectious disease) (5 sources) Patient encounter status; Translations: [Encounter for screening mammogram for malignant neoplasm of breast] Onset: 01-05-2024 01-05-2024 Episodic Other upper respiratory infections (5 sources) Acute maxillary sinusitis; Translations: [Acute maxillary sinusitis, unspecified] Onset: 05-24-2023 Resolved: 09-05-2023 09-05-2023 Episodic Residual codes; unclassified (5 sources) History of noncompliance with medication regimen; Translations: [History of medication noncompliance] Onset: 09-05-2023 Resolved: 03-08-2024 03-08-2024 Episodic Screening and history of mental health and substance abuse codes (1 source) Personal history of nicotine dependence; Translations: [PERSONAL HISTORY OF NICOTINE DEPEND] Onset: 02-08-2022 Episodic Thyroid disorders (5 sources) Sick-euthyroid syndrome; Translations: [Sick-euthyroid syndrome] Onset: 09-05-2023 09-05-2023 Episodic Unclassified (1 source) CONTACT W/AND (SUSP) EXPOS COVID-19; Translations: [CONTACT W/AND (SUSP) EXPOS COVID-19] Onset: 07-15-2022 Unclassified (1 source) LOW BACK PAIN, UNSPECIFIED; Translations: [LOW BACK PAIN, UNSPECIFIED] Onset: 02-03-2022 Results Test Name Value Interpretation Reference Range Facility 36on 05-08-2024 36 I called patient to see if she has made another PCP appointment. Per Dr Sorensen office patient needed to be seen again before being cleared and complete blood work and EKG. Patient stated she would like to cancel her surgery at this time as she cannot get the time off work and will call back to reschedule sometime after the first of the year. I updated JOSE Fernández with this information. [facility] Orders Onlyon 04-16-2024 Orders Only [id number] Nato Palacios 1970 F Date Provider Department Center 04/16/2024 [id number] VAZQUEZ [facility] SURG Second Fl Family History Family history unknown: Yes [facility] 36on 04-13-2024 36 Patient is scheduled for neck surgery and is having increasing pain radiating down and she would like to know what she should do since dr orozco is booked until her surgery, [facility] 36on 04-09-2024 36 Approving, but needs appt for additional refills. [facility] 36on 03-09-2024 36 Approving, but needs appt for additional refills. [facility] Follow-Upon 03-09-2024 Follow-Up [id number] Nato Palacios 1970 F Date Provider Department [place] 03/09/2024 [id number]-[id number] OROZCO MP ORTHO MPORTHO Family History Family history unknown: Yes Level of Service:21166 [place] OFFICE/OUTPATIENT ESTABLISHED MOD MDM 30 MIN () Reason for Visit and Comments: Pain [136] - New patient [facility] 36on 03-07-2024 36 Patient called stating that she was told that she would need a cervical revision by Dr Orozco. Patient would like to schedule this surgery after eddie if possible. Patient also states that she has headaches 6 days a week all day long due to the pain. Patient is asking for referral to pain management in [place] until she can have the surgery. Patient requesting call back. Please advise. Thank you. [facility] CT CERVICAL SPINE WO CONTRAS Ton [...] Maddie Simpson MD 02/13/23 Final result Normal [facility] Covid-19 PCR (CVDTB)on 06-27 SARS-CoV-2 (COVID-19) RNA RENÉ+probe Ql (Unsp spec) Not detected Normal NOT DETECTED [facility] [place] Comment on above: Result Comment: This test is not yet approved or cleared by the [place] FDA. When there are no FDA-approved or cleared tests available, and other criteria are met, FDA can make tests available under an emergency access mechanism called an Emergency Use Authorization (EUA). The EUA for this test is supported by the [place] of Health and Human Service's (HHS's) declaration [...] consistent with SARS-CoV-2. Performed By: #### C [facility] #### [facility] [place] [facility] [address] [place] [address] Dr. Radha Suarez INFLUENZA A AND B AGon 07-15 [facility]FL[facility] OF [facility], [place] SEE BELOW Normal [facility] [place] Comment on above: Result Comment: Nega tive for Flu A protein angiten. Infection due to Flu A cannot be ruled out. Flu A angiten in the sample may be below the detection limit of the test. Performed By: #### C [facility] #### [facility] [address] [place] [address] Dr. Radha Suarez INFLUBNEG SEE BELOW Normal [facility] Comment on above: Result Comment: Nega tive for Flu B protein antigen. Infection due to Flu B cannot be ruled out. Flu B antigen in the sample may be below the detection limit of the test. Performed By: #### C [facility] #### [facility] [place] [facility] [address] [place] [address] Dr. Radha Suarez INFLUENZA A AG Negative Normal NEGATIVE SEE COMMENT [facility] Comment on above: Performed By: #### C [facility] #### [facility] [place] [facility] [address] [place] [address] Dr. Radha Suarez INFLUENZA B AG Negative Normal NEGATIVE SEE COMMENT [facility] Comment on above: Performed By: #### C [facility] #### [facility] [address] [place] [address] Dr. Radha Suarez CULTURE WOUNDon 06-01-2022 CULTURE WOUND Isolate 1 Pseudomonas aeruginosa Light growth of ORGANISM 1 Pseudomonas aeruginosa ANTIBIOTIC M.I.C RX STATUS Piperacillin/Tazobac iglesias <=4 S F Ceftazidime <=1 S F Imipenem 1 S F Amikacin 4 S F Gentamicin <=1 S F Tobramycin <=1 S F Ciprofloxacin <=0.25 S F Levofloxacin <=0.12 S F Normal [facility] Comment on above: Performed By: #### C VDTBH #### [facility] [address] [place] [address] Dr. Radha Suarez CBC AUTO DIFFon 04-16-2022 BASO # 0.1 103/ul Normal 0.0-0.1 [facility] Comment on above: Performed By: #### C BC #### [facility] [address] [place] [address] Dr. Radha Suarez Basophils/100 WBC (Bld) 0.8 % Normal 0.2-2.0 [facility] Comment on above: Performed By: #### C BC #### [facility] [address] [place] [address] Dr. Radha Suarez EO # 0.1 103/ul Normal 0.0-0.7 [facility] Comment on above: Performed By: #### C BC #### [facility] [address] [place] [address] Dr. Radha Suarez Eosinophils/100 WBC (Bld) 0.8 % Critically low 0.9-7.0 [facility] Comment on above: Performed By: #### C BC #### [facility] [address] [place] [address] Dr. Radha Suarez Erythrocyte distribution width (RBC) [Ratio] 14.3 % Normal 11.0-15.0 [facility] Comment on above: Performed By: #### C BC #### [facility] [address] [place] [address] Dr. Radha Suarez Hematocrit (Bld) [Volume fraction] 44.4 % Normal 36.0-48.0 [facility] Comment on above: Performed By: #### C BC #### [facility] [address] [place] [address] Dr. Radha Suarez Hemoglobin (Bld) [Mass/Vol] 14.6 g/dL Normal 12.0-16.0 [facility] Comment on above: Performed By: #### C BC #### [facility] [address] [place] [address] Dr. Radha Suarez IG # 0.02 10e3/ul Normal 0.00-0.03 [facility] Comment on above: Performed By: #### C BC #### [facility] [address] [place] [address] Dr. Radha Suarez IG % 0.3 % Normal 0.0-0.5 [facility] Comment on above: Performed By: #### C BC #### [facility] [address] [place] [address] Dr. Radha Suarez LYMPH # 2.4 103/ul Normal 1.2-3.8 [facility] Comment on above: Performed By: #### C BC #### [facility] [address] [place] [address] Dr. Radha Suarez Lymphocytes/100 WBC (Bld) 31.6 % Normal 20.5-60.0 [facility] Comment on above: Performed By: #### C BC #### [facility] [address] [place] [address] Dr. Radha Suarez MANUAL DIFF REQ NO Normal [facility] Comment on above: Performed By: #### C BC #### [facility] [address] [place] [address] Dr. Radha Suarez MCH (RBC) [Entitic mass] 30.5 pg Normal 26.7-34.0 [facility] Comment on above: Performed By: #### C BC #### [facility] [address] [place] [address] Dr. Radha Suarez MCHC (RBC) [Mass/Vol] 32.9 g/dL Normal 29.9-35.2 [facility] Comment on above: Performed By: #### C BC #### [facility] [address] [place] [address] Dr. Radha Suarez MCV (RBC) [Entitic vol] 92.9 fL Normal 81.0-99.0 [facility] Comment on above: Performed By: #### C BC #### [facility] [address] [place] [address] Dr. Radha Saurez MONO # 0.6 103/ul Normal 0.3-0.8 [facility] Comment on above: Performed By: #### C BC #### [facility] [address] [place] [address] Dr. Radha Suarez Monocytes/100 WBC (Bld) 7.8 % Normal 1.7-12.0 [facility] Comment on above: Performed By: #### C BC #### [facility] [address] [place] [address] Dr. Radha Suarez NEUT # 4.5 103/ul Normal 1.4-6.5 [facility] Comment on above: Performed By: #### C BC #### [facility] [address] [place] [address] Dr. Radha Suarez Neutrophils/100 WBC (Bld) 58.7 % Normal 43.0-75.0 [facility] Comment on above: Performed By: #### C BC #### [facility] [address] [place] [address] Dr. Radha Suarez Platelet mean volume (Bld) [Entitic vol] 9.1 fL Critically low 9.5-13.5 [facility] Comment on above: Performed By: #### C BC #### [facility] [address] [place] [address] Dr. Radha Suarez PLT 346 103/ul Normal 150-450 [facility] Comment on above: Performed By: #### C BC #### [facility] [address] [place] [address] Dr. Radha Suarez RBC 4.78 106/ul Normal 4.20-5.40 [facility] Comment on above: Performed By: #### C BC #### [facility] [address] [place] [address] Dr. Radha Suarez WBC 7.6 103/ul Normal 4.0-11.0 [facility] Comment on above: Performed By: #### C BC #### [facility] [address] [place] [address] Dr. Radha Suarez FREE T3on 04-16-2022 FREE T3 2.50 pg/mlL Normal 2.18-3.98 [facility] Comment on above: Performed By: #### C BC #### [facility] [address] [place] [address] Dr. Radha Suarez FREE T4on 04-16-2022 Free T4 [Mass/Vol] 1.33 ng/dL Normal 0.76-1.[address] [facility] Comment on above: Performed By: #### F T4 #### [facility] [address] [place] [address] Dr. Radha Suarez PROF CHEM 8 (BAS METB)on Anion gap [Moles/Vol] 8.7 mmol/L Normal [facility] Comment on above: Performed By: #### C BC #### [facility] [address] [address] [address] Radha Suarez Calcium [Mass/Vol] 9.4 mg/dL Normal 8.5-10.1 [facility] Comment on above: Performed By: #### C BC #### [facility] [address] [address] [address] Radha Suarez Chloride [Moles/Vol] 101 mmol/L Normal 98-107 [facility] Comment on above: Performed By: #### C BC #### [facility] [address] [place] [address] Dr. Radha Suarez CO2 [Moles/Vol] 30.5 mmol/L Normal 21.0-32.0 [facility] Comment on above: Performed By: #### C BC #### [facility] [address] [place] [address] Dr. Radha Suarez Creatinine [Mass/Vol] 0.72 mg/dL Normal 0.55-1.02 [facility] Comment on above: Performed By: #### C BC #### [facility] [address] [place] [address] Dr. Radha Suarez EGFR-AF KYRGYZ >60 Normal >=60 [facility] Comment on above: Performed By: #### C BC #### [facility] [address] [address] [address] Radha Suarez EGFR-NON AF KYRGYZ >60 Normal >=60 [facility] Comment on above: Performed By: #### C BC #### [facility] [address] [address] [address] Radha Suarez Glucose [Mass/Vol] 99 mg/dL Normal 74-106 [facility] Comment on above: Performed By: #### C BC #### [facility] [address] [place] [address] Dr. Radha Suarez Potassium [Moles/Vol] 4.2 mmol/L Normal 3.5-5.1 [facility] Comment on above: Performed By: #### C BC #### [facility] [address] [place] [address] Dr. Radha Suarez Sodium [Moles/Vol] 136 mmol/L Normal 136-145 [facility] Comment on above: Performed By: #### C BC #### [facility] [address] [place] [address] Dr. Radha Suaerz Urea nitrogen [Mass/Vol] 12.0 mg/dL Normal 7.0-18.0 [facility] Comment on above: Performed By: #### C BC #### [facility] [address] [place] [address] Dr. Radha Suarez Urea nitrogen/Creatinine [Mass ratio] 16.7 mg/mg Normal [facility] Comment on above: Performed By: #### C BC #### [facility] [address] [place] [address] Dr. Radha Suarez PROTIMEon 04-16-2022 INR Coag (PPP) [Relative time] 0.98 {INR} Normal [facility] Comment on above: Performed By: #### P TT, PT #### [facility] [address] [place] [address] Dr. Radha Suarez INR GUIDELINES SEE BELOW Normal [facility] Comment on above: Result Comment: DEVI RED INR: 2.0 - 3.0 CONDITIONS NOT LISTED BELOW 2.5 - 3.5 FOR PROSTHETIC HEART VALVE REPLACEMENT 2.5 - 3.5 RECURRENT THROMBOSIS Performed By: #### P TT, PT #### [facility] [address] [place] [address] Dr. Radha Suarez PT Coag (PPP) [Time] 10.6 s Normal 9.0-11.6 [facility] Comment on above: Performed By: #### P TT, PT #### [facility] [address] [place] [address] Dr. Radha Suarez PTTon 04-16-2022 aPTT Coag (Bld) [Time] 27.9 s Normal 22.3-36.2 [facility] Comment on above: Performed By: #### P TT, PT #### [facility] [address] [place] [address] Dr. Radha Suarez TSHon 04-16-2022 TSH 0.206 uIU/mL Critically low 0.358-3.740 [facility] Comment on above: Performed By: #### C BC #### [facility] [address] [place] [address] Dr. Radha Suarez FREE T4on 03-08-2022 Free T4 [Mass/Vol] 1.59 ng/dL Critically high 0.76-1.46 [facility] Comment on above: Performed By: #### C VDTBH #### [facility] [address] [place] [address] Dr. Radha Suarez TSHon 03-08-2022 TSH 0.107 uIU/mL Critically low 0.358-3.740 [facility] Comment on above: Performed By: #### C VDTBH #### [facility] [address] [place] [address] Dr. Radha Suarez LUMBAR SPINE 4 OR 5 Son LUMBAR SPINE 4 OR [address] [facility] Department of Radiology [address] [place] [id number] Patient Name: NATO PALACIOS : 1970 Sex: F Age: Race: White Pt. Location: Patient Status: D Ordered Date: 03/03/2022 2:10:00 PM Completed Date: 03/03/2022 02:31 PM Requesting Provider: LAINE OROZCO Attending Provider: LAINE OROZCO Report Copy To: Signs & Symptoms: M54.50 Low back pain, unspecified I10 History: [place] Comments: Evaluate Exam: LUMBAR SPINE 4 OR 5 VWS LUMBAR SPINE 4 OR 5 VWS 03/03/2022 [...] Approved by:Raúl Parsons03/04/2022 8:16 AM. I, Anjum Arizmendi,have reviewed the image(s) and agree with the findings in this report. Electronically signed: Anjum Arizmendi. Transcribed by: [email or web address], User Resident: ANJUM CLIFTON Electronically Signed by: ANJUM ARIZMENDI @ 03/04/2022 09:13 AM I personally read this/these film(s) with this resident Normal [facility] Comment on above: Order Comment: Evalu ate CBC AUTO DIFFon 02-04-2022 BASO # 0.0 103/ul Normal 0.0-0.1 [facility] Comment on above: Performed By: #### C BC #### [facility] [address] [address] [address] Radha Suarez Basophils/100 WBC (Bld) 0.1 % Critically low 0.2-2.0 [facility] Comment on above: Performed By: #### C BC #### [facility] [address] [address] [address] Radha Suarez EO # 0.0 103/ul Normal 0.0-0.7 [facility] Comment on above: Performed By: #### C BC #### [facility] [address] [address] [address] Radha Suarez Eosinophils/100 WBC (Bld) 0.1 % Critically low 0.9-7.0 [facility] Comment on above: Performed By: #### C BC #### [facility] [address] [address] [address] Radha Suarez Erythrocyte distribution width (RBC) [Ratio] 14.4 % Normal 11.0-15.0 [facility] Comment on above: Performed By: #### C BC #### [facility] [address] [address] [address] Radha Suarez Hematocrit (Bld) [Volume fraction] 41.1 % Normal 36.0-48.0 [facility] Comment on above: Performed By: #### C BC #### [facility] [address] [address] [address] Radha Suarez Hemoglobin (Bld) [Mass/Vol] 13.3 g/dL Normal 12.0-16.0 [facility] Comment on above: Performed By: #### C BC #### [facility] [address] [address] [address] Radha Suarez IG # 0.09 10e3/ul Critically high 0.00-0.03 [facility] Comment on above: Performed By: #### C BC #### [facility] [address] [address] [address] Radha Suarez IG % 0.6 % Critically high 0.0-0.5 [facility] Comment on above: Performed By: #### C BC #### [facility] [address] [address] [address] Radha Suarez LYMPH # 1.1 103/ul Critically low 1.2-3.8 [facility] Comment on above: Performed By: #### C BC #### [facility] [address] [place] [address] Dr. Radha Suarez Lymphocytes/100 WBC (Bld) 7.6 % Critically low 20.5-60.0 [facility] Comment on above: Performed By: #### C BC #### [facility] [address] [place] [address] Dr. Radha Suarez MANUAL DIFF REQ NO Normal [facility] Comment on above: Performed By: #### C BC #### [facility] [address] [place] [address] Dr. Radha Suarez MCH (RBC) [Entitic mass] 30.5 pg Normal 26.7-34.0 [facility] Comment on above: Performed By: #### C BC #### [facility] [address] [place] [address] Dr. Radha Suarez MCHC (RBC) [Mass/Vol] 32.4 g/dL Normal 29.9-35.2 [facility] Comment on above: Performed By: #### C BC #### [facility] [address] [place] [address] Dr. Radha Suarez MCV (RBC) [Entitic vol] 94.3 fL Normal 81.0-99.0 [facility] Comment on above: Performed By: #### C BC #### [facility] [address] [place] [address] Dr. Radha Suarez MONO # 0.4 103/ul Normal 0.3-0.8 [facility] Comment on above: Performed By: #### C BC #### [facility] [address] [place] [address] Dr. Radha Suarez Monocytes/100 WBC (Bld) 2.4 % Normal 1.7-12.0 [facility] Comment on above: Performed By: #### C BC #### [facility] [address] [place] [address] Dr. Radha Suarez NEUT # 13.2 103/ul Critically high 1.4-6.5 [facility] Comment on above: Performed By: #### C BC #### [facility] [address] [address] [address] Radha Suarez Neutrophils/100 WBC (Bld) 89.2 % Critically high 43.0-75.0 [facility] Comment on above: Performed By: #### C BC #### [facility] [address] [place] [address] Dr. Radha Suarez Platelet mean volume (Bld) [Entitic vol] 9.3 fL Critically low 9.5-13.5 [facility] Comment on above: Performed By: #### C BC #### [facility] [address] [address] [address] Radha Suarez PLT 358 103/ul Normal 150-450 [facility] Comment on above: Performed By: #### C BC #### [facility] [address] [place] [address] Dr. Radha Suarez RBC 4.36 106/ul Normal 4.20-5.40 [facility] Comment on above: Performed By: #### C BC #### [facility] [address] [place] [address] Dr. Radha Suarez WBC 14.8 103/ul Critically high 4.0-11.0 [facility] Comment on above: Performed By: #### C BC #### [facility] [address] [place] [address] Dr. Radha Suarez PROF CHEM 8 (BAS METB)on Anion gap [Moles/Vol] 10.7 mmol/L Normal [facility] Comment on above: Performed By: #### B MP #### [facility] [address] [place] [address] Dr. Radha Suarez Calcium [Mass/Vol] 8.6 mg/dL Normal 8.5-10.[address] [facility] Comment on above: Performed By: #### B MP #### [facility] [address] [place] [address] Dr. Radha Suarez Chloride [Moles/Vol] 103 mmol/L Normal 98-107 [facility] Comment on above: Performed By: #### B MP #### [facility] [address] [address] [address] Radha Suarez CO2 [Moles/Vol] 27.2 mmol/L Normal 21.0-32.0 [facility] Comment on above: Performed By: #### B MP #### [facility] [address] [address] [address] Radha Suarez Creatinine [Mass/Vol] 0.82 mg/dL Normal 0.55-1.02 [facility] Comment on above: Performed By: #### B MP #### [facility] [address] [address] [address] Radha Suarez EGFR-AF KYRGYZ >60 Normal >=60 [facility] Comment on above: Performed By: #### B MP #### [facility] [address] [address] [address] Radha Suarez EGFR-NON AF KYRGYZ >60 Normal >=60 [facility] Comment on above: Performed By: #### B MP #### [facility] [address] [address] [address] Radha Suarez Glucose [Mass/Vol] 158 mg/dL Critically high 74-106 [facility] Comment on above: Performed By: #### B MP #### [facility] [address] [address] [address] Radha Suarez Potassium [Moles/Vol] 3.9 mmol/L Normal 3.5-5.1 [facility] Comment on above: Performed By: #### B MP #### [facility] [address] [address] [address] Radha Suarez Sodium [Moles/Vol] 137 mmol/L Normal 136-[address] [facility] Comment on above: Performed By: #### B MP #### [facility] [address] [address] [address] Radha Suarez Urea nitrogen [Mass/Vol] 16.0 mg/dL Normal 7.0-18.0 [facility] Comment on above: Performed By: #### B MP #### [facility] [address] [address] [address] Radha Suarez Urea nitrogen/Creatinine [Mass ratio] 19.5 mg/mg Normal [facility] Comment on above: Performed By: #### B #### [facility] [address] [place] [address] Dr. Radha Suarez CBC AUTO DIFFon 02-03-2022 BASO # 0.0 103/ul Normal 0.0-0.1 [facility] Comment on above: Performed By: #### C VDTBH #### [facility] [address] [place] [address] Dr. Radha Suarez Basophils/100 WBC (Bld) 0.3 % Normal 0.2-2.0 [facility] Comment on above: Performed By: #### C VDTBH #### [facility] [address] [place] [address] Dr. Radha Suarez EO # 0.0 103/ul Normal 0.0-0.7 [facility] Comment on above: Performed By: #### C VDTBH #### [facility] [address] [place] [address] Dr. Radha Suarez Eosinophils/100 WBC (Bld) 0.0 % Critically low 0.9-7.0 [facility] Comment on above: Performed By: #### C VDTBH #### [facility] [address] [place] [address] Dr. Radha Suarez Erythrocyte distribution width (RBC) [Ratio] 14.2 % Normal 11.0-15.0 [facility] Comment on above: Performed By: #### C VDTBH #### [facility] [address] [place] [address] Dr. Radha Suarez Hematocrit (Bld) [Volume fraction] 43.2 % Normal 36.0-48.0 [facility] Comment on above: Performed By: #### C VDTBH #### [facility] [address] [place] [address] Dr. Radha Suarez Hemoglobin (Bld) [Mass/Vol] 13.8 g/dL Normal 12.0-16.0 [facility] Comment on above: Performed By: #### C VDTBH #### [facility] [address] [address] [address] Radha Suarez IG # 0.02 10e3/ul Normal 0.00-0.03 [facility] Comment on above: Performed By: #### C VDTBH #### [facility] [address] [place] [address] Dr. Radha Suarez IG % 0.3 % Normal 0.0-0.5 [facility] Comment on above: Performed By: #### C VDTBH #### [facility] [address] [place] [address] Dr. Radha Suarez LYMPH # 0.7 103/ul Critically low 1.2-3.8 [facility] Comment on above: Performed By: #### C VDTBH #### [facility] [address] [place] [address] Dr. Radha Suarez Lymphocytes/100 WBC (Bld) 9.8 % Critically low 20.5-60.0 [facility] Comment on above: Performed By: #### C VDTBH #### [facility] [address] [place] [address] Dr. Radha Suarez MANUAL DIFF REQ NO Normal [facility] Comment on above: Performed By: #### C VDTBH #### [facility] [address] [place] [address] Dr. Radha Suarez MCH (RBC) [Entitic mass] 29.8 pg Normal 26.7-34.0 [facility] Comment on above: Performed By: #### C VDTBH #### [facility] [address] [place] [address] Dr. Radha Suarez MCHC (RBC) [Mass/Vol] 31.9 g/dL Normal 29.9-35.2 [facility] Comment on above: Performed By: #### C VDTBH #### [facility] [address] [place] [address] Dr. Radha Suarez MCV (RBC) [Entitic vol] 93.3 fL Normal 81.0-99.0 [facility] Comment on above: Performed By: #### C VDTBH #### [facility] [address] [place] [address] Dr. Radha Suarez MONO # 0.1 103/ul Critically low 0.3-0.8 [facility] Comment on above: Performed By: #### C VDTBH #### [facility] [address] [place] [address] Dr. Radha Suarez Monocytes/100 WBC (Bld) 0.8 % Critically low 1.7-12.0 [facility] Comment on above: Performed By: #### C VDTBH #### [facility] [address] [place] [address] Dr. Radha Suarez NEUT # 6.6 103/ul Critically high 1.4-6.5 [facility] Comment on above: Performed By: #### C VDTBH #### [facility] [address] [place] [address] Dr. Radha Suarez Neutrophils/100 WBC (Bld) 88.8 % Critically high 43.0-75.0 [facility] Comment on above: Performed By: #### C VDTBH #### [facility] [address] [place] [address] Dr. Radha Suarez Platelet mean volume (Bld) [Entitic vol] 9.2 fL Critically low 9.5-13.5 [facility] Comment on above: Performed By: #### C VDTBH #### [facility] [address] [place] [address] Dr. Radha Suarez PLT 368 103/ul Normal 150-450 [facility] Comment on above: Performed By: #### C VDTBH #### [facility] [address] [place] [address] Dr. Radha Suarez RBC 4.63 106/ul Normal 4.20-5.40 [facility] Comment on above: Performed By: #### C VDTBH #### [facility] [address] [place] [address] Dr. Radha Suarez WBC 7.4 103/ul Normal 4.0-11.0 [facility] Comment on above: Performed By: #### C VDTBH #### [facility] [address] [address] [address] Radha Suarez BASO # 0.0 103/ul Normal 0.0-0.1 [facility] Comment on above: Performed By: #### C BC #### [facility] [address] [address] [address] Radha Suarez Basophils/100 WBC (Bld) 0.2 % Normal 0.2-2.0 [facility] Comment on above: Performed By: #### C BC #### [facility] [address] [place] [address] Dr. Radha Suarez EO # 0.0 103/ul Normal 0.0-0.7 [facility] Comment on above: Performed By: #### C BC #### [facility] [address] [place] [address] Dr. Radha Suarez Eosinophils/100 WBC (Bld) 0.2 % Critically low 0.9-7.0 [facility] Comment on above: Performed By: #### C BC #### [facility] [address] [place] [address] Dr. Radha Suarez Erythrocyte distribution width (RBC) [Ratio] 14.3 % Normal 11.0-15.0 [facility] Comment on above: Performed By: #### C BC #### [facility] [address] [place] [address] Dr. Radha Suarez Hematocrit (Bld) [Volume fraction] 46.6 % Normal 36.0-48.0 [facility] Comment on above: Performed By: #### C BC #### [facility] [address] [place] [address] Dr. Radha Suarez Hemoglobin (Bld) [Mass/Vol] 15.5 g/dL Normal 12.0-16.0 [facility] Comment on above: Performed By: #### C BC #### [facility] [address] [place] [address] Dr. Radha Suarez IG # 0.06 10e3/ul Critically high 0.00-0.03 [facility] Comment on above: Performed By: #### C BC #### [facility] [address] [place] [address] Dr. Radha Suarez IG % 0.5 % Normal 0.0-0.5 [facility] Comment on above: Performed By: #### C BC #### [facility] [address] [place] [address] Dr. Radha Suarez LYMPH # 0.9 103/ul Critically low 1.2-3.8 [facility] Comment on above: Performed By: #### C BC #### [facility] [address] [place] [address] Dr. Radha Suarez Lymphocytes/100 WBC (Bld) 7.2 % Critically low 20.5-60.0 [facility] Comment on above: Performed By: #### C BC #### [facility] [address] [place] [address] Dr. Radha Suarez MANUAL DIFF REQ NO Normal [facility] Comment on above: Performed By: #### C BC #### [facility] [address] [place] [address] Dr. Radha Suarez MCH (RBC) [Entitic mass] 30.7 pg Normal 26.7-34.0 [facility] Comment on above: Performed By: #### C BC #### [facility] [address] [place] [address] Dr. Radha Suarez MCHC (RBC) [Mass/Vol] 33.3 g/dL Normal 29.9-35.2 [facility] Comment on above: Performed By: #### C BC #### [facility] [address] [place] [address] Dr. Radha Suarez MCV (RBC) [Entitic vol] 92.3 fL Normal 81.0-99.0 [facility] Comment on above: Performed By: #### C BC #### [facility] [address] [place] [address] Dr. Radha Suarez MONO # 0.1 103/ul Critically low 0.3-0.8 [facility] Comment on above: Performed By: #### C BC #### [facility] [address] [address] [address] Radha Suarez Monocytes/100 WBC (Bld) 0.7 % Critically low 1.7-12.0 [facility] Comment on above: Performed By: #### C BC #### [facility] [address] [address] [address] Radha Suarez NEUT # 11.7 103/ul Critically high 1.4-6.5 [facility] Comment on above: Performed By: #### C BC #### [facility] [address] [place] [address] Dr. Radha Suarez Neutrophils/100 WBC (Bld) 91.2 % Critically high 43.0-75.0 [facility] Comment on above: Performed By: #### C BC #### [facility] [address] [place] [address] Dr. Radha Suarez Platelet mean volume (Bld) [Entitic vol] 9.1 fL Critically low 9.5-13.5 [facility] Comment on above: Performed By: #### C BC #### [facility] [address] [place] [address] Dr. Radha Suarez PLT 394 103/ul Normal 150-450 [facility] Comment on above: Performed By: #### C BC #### [facility] [address] [place] [address] Dr. Radha Suarez RBC 5.05 106/ul Normal 4.20-5.40 [facility] Comment on above: Performed By: #### C BC #### [facility] [address] [place] [address] Dr. Radha Suarez WBC 12.8 103/ul Critically high 4.0-11.0 [facility] Comment on above: Performed By: #### C BC #### [facility] [address] [place] [address] LSPINE WO CONon 2 CT LSPINE WO CON EXAMINATION: CT LSPINE WO CON HISTORY: MUSCLE WEAKNESS (GENERALIZED) COMPARISON: [...] NAOMIE THEODORE Date: 2022-02-03 09:33 Normal [facility] PROF 14(COMP METB)on 022 Albumin [Mass/Vol] 3.9 g/dL Normal 3.4-5.[address] [facility] Comment on above: Performed By: #### C VDTBH #### [facility] [address] [place] [address] Dr. Radha Suarez Albumin/Globulin [Mass ratio] 1.0 {ratio} Normal [facility] Comment on above: Performed By: #### C VDTBH #### [facility] [address] [address] [address] Radha Suarez ALP [Catalytic activity/Vol] 117 U/L Critically high 46-116 [facility] Comment on above: Performed By: #### C VDTBH #### [facility] [address] [address] [address] Radha Suarez ALT [Catalytic activity/Vol] 42 U/L Normal 14-59 [facility] Comment on above: Performed By: #### C VDTBH #### [facility] [address] [address] [address] Radha Suarez Anion gap [Moles/Vol] 16.0 mmol/L Normal [facility] Comment on above: Performed By: #### C VDTBH #### [facility] [address] [address] [address] Radha Suarez AST [Catalytic activity/Vol] 25 U/L Normal 15-37 [facility] Comment on above: Performed By: #### C VDTBH #### [facility] [address] [address] [address] Radha Suarez Bilirubin [Mass/Vol] 0.2 mg/dL Normal 0.2-1.0 [facility] Comment on above: Performed By: #### C VDTBH #### [facility] [address] [place] [address] Dr. Radha Suarez Calcium [Mass/Vol] 9.6 mg/dL Normal 8.5-10.[address] [facility] Comment on above: Performed By: #### C VDTBH #### [facility] [address] [address] [address] Radha Suarez Chloride [Moles/Vol] 104 mmol/L Normal 98-107 [facility] Comment on above: Performed By: #### C VDTBH #### [facility] [address] [address] [address] Radha Suarez CO2 [Moles/Vol] 26.0 mmol/L Normal 21.0-32.0 [facility] Comment on above: Performed By: #### C VDTBH #### [facility] [address] [address] [address] Radha Suarez Creatinine [Mass/Vol] 0.82 mg/dL Normal 0.55-1.02 [facility] Comment on above: Performed By: #### C VDTBH #### [facility] [address] [address] [address] Radha Suarez EGFR-AF KYRGYZ >60 Normal >=60 [facility] Comment on above: Performed By: #### C VDTBH #### [facility] [address] [address] [address] Radha Suarez EGFR-NON AF KYRGYZ >60 Normal >=60 [facility] Comment on above: Performed By: #### C VDTBH #### [facility] [address] [address] [address] Radha Suarez Globulin (S) [Mass/Vol] 3.8 g/dL Normal [facility] Comment on above: Performed By: #### C VDTBH #### [facility] [address] [address] [address] Radha Suarez Glucose [Mass/Vol] 153 mg/dL Critically high 74-106 [facility] Comment on above: Performed By: #### C VDTBH #### [facility] [address] [address] [address] Radha Suarez Potassium [Moles/Vol] 4.0 mmol/L Normal 3.5-5.1 [facility] Comment on above: Performed By: #### C VDTBH #### [facility] [address] [address] [address] Radha Suarez Protein [Mass/Vol] 7.7 g/dL Normal 6.4-8.[address] [facility] Comment on above: Performed By: #### C VDTBH #### [facility] [address] [address] [address] Radha Suarez Sodium [Moles/Vol] 142 mmol/L Normal 136-[address] [facility] Comment on above: Performed By: #### C VDTBH #### [facility] [address] [address] [address] Radha Suarez Urea nitrogen [Mass/Vol] 10.0 mg/dL Normal 7.0-18.0 [facility] Comment on above: Performed By: #### C VDTBH #### [facility] [address] [address] [address] Radha Suarez Urea nitrogen/Creatinine [Mass ratio] 12.2 mg/mg Normal [facility] Comment on above: Performed By: #### C VDTBH #### [facility] [address] [place] [address] Dr. Radha Suarez PROF CHEM 8 (BAS METB)on Anion gap [Moles/Vol] 14.9 mmol/L Normal [facility] Comment on above: Performed By: #### C VDTBH #### [facility] [address] [place] [address] Dr. Radha Suarez Calcium [Mass/Vol] 9.3 mg/dL Normal 8.5-10.[address] [facility] Comment on above: Result Comment: resu lt to follow Previously reported as: 9.1 On 02/03/2022 09:13 By [email or web address] Performed By: #### C VDTBH #### [facility] [address] [place] [address] Dr. Radha Suarez Chloride [Moles/Vol] 104 mmol/L Normal 98-107 [facility] Comment on above: Performed By: #### C VDTBH #### [facility] [address] [place] [address] Dr. Radha Suarez CO2 [Moles/Vol] 25.7 mmol/L Normal 21.0-32.0 [facility] Comment on above: Performed By: #### C VDTBH #### [facility] [address] [place] [address] Dr. Radha Suarez Creatinine [Mass/Vol] 0.93 mg/dL Normal 0.55-1.02 [facility] Comment on above: Performed By: #### C VDTBH #### [facility] [address] [place] [address] Dr. Radha Suarez EGFR-AF KYRGYZ >60 Normal >=60 [facility] Comment on above: Performed By: #### C VDTBH #### [facility] [address] [place] [address] Dr. Radha Suarez EGFR-NON AF KYRGYZ >60 Normal >=60 [facility] Comment on above: Performed By: #### C VDTBH #### [facility] [address] [place] [address] Dr. Radha Suarez Glucose [Mass/Vol] 173 mg/dL Critically high 74-106 [facility] Comment on above: Performed By: #### C VDTBH #### [facility] [address] [address] [address] Radha Suarez Potassium [Moles/Vol] 3.6 mmol/L Normal 3.5-5.1 [facility] Comment on above: Performed By: #### C VDTBH #### [facility] [address] [address] [address] Radha Suarez Sodium [Moles/Vol] 141 mmol/L Normal 136-[address] [facility] Comment on above: Performed By: #### C VDTBH #### [facility] [address] [place] [address] Dr. Radha Suarez Urea nitrogen [Mass/Vol] 12.0 mg/dL Normal 7.0-18.0 [facility] Comment on above: Performed By: #### C VDTBH #### [facility] [address] [place] [address] Dr. Radha Suarez Urea nitrogen/Creatinine [Mass ratio] 12.9 mg/mg Normal [facility] Comment on above: Performed By: #### C VDTBH #### [facility] [address] [place] [address] Dr. Radha Suarez XR CHEST 1 Von 02-03-2022 XR CHEST 1 V EXAMINATION: XR CHEST 1 V HISTORY: Cough COMPARISON: Chest x-ray 01/14/2022 TECHNIQUE: Portable chest FINDINGS: The lung parenchyma is free of consolidation or infiltrate. No pneumothorax or pleural effusion. The cardiac, mediastinal and hilar contours are normal. The visualized osseous structures exhibit no gross abnormality. IMPRESSION: No acute cardiopulmonary abnormality. Electronically authenticated by: NAOMIE VELASQUEZ Date: 2022-02-02 22:36 Normal [facility] Covid-19 PCR (CVDTB)on SARS-CoV-2 (COVID-19) RNA RENÉ+probe Ql (Unsp spec) Not detected Normal NOT DETECTED [facility] Comment on above: Result Comment: When diagnostic [...] for this test is supported by the [employer] Human Service's declaration that [...] used). Performed By: #### C BC #### [facility] [address] [place] [address] Dr. Radha Suarez BNPon 01-14-2022 Natriuretic peptide B (Bld) [Mass/Vol] 86.0 pg/mL Normal <=900.0 [facility] Comment on above: Performed By: #### B MEDICAL BILL PROCESSOR, CMP #### [facility] [address] [place] [address] Dr. Radha Suarez CBC AUTO DIFFon 01-14-2022 BASO # 0.1 103/ul Normal 0.0-0.1 [facility] Comment on above: Performed By: #### C VDTBH #### [facility] [address] [place] [address] Dr. Radha Suarez Basophils/100 WBC (Bld) 0.6 % Normal 0.2-2.0 [facility] Comment on above: Performed By: #### C VDTBH #### [facility] [address] [place] [address] Dr. Radha Suarez EO # 0.1 103/ul Normal 0.0-0.7 [facility] Comment on above: Performed By: #### C VDTBH #### [facility] [address] [place] [address] Dr. Radha Suarez Eosinophils/100 WBC (Bld) 1.1 % Normal 0.9-7.0 [facility] Comment on above: Performed By: #### C VDTBH #### [facility] [address] [place] [address] Dr. Radha Suarez Erythrocyte distribution width (RBC) [Ratio] 14.6 % Normal 11.0-15.0 [facility] Comment on above: Performed By: #### C VDTBH #### [facility] [address] [place] [address] Dr. Radha Suarez Hematocrit (Bld) [Volume fraction] 43.8 % Normal 36.0-48.0 [facility] Comment on above: Performed By: #### C VDTBH #### [facility] [address] [place] [address] Dr. Radha Suarez Hemoglobin (Bld) [Mass/Vol] 14.7 g/dL Normal 12.0-16.0 [facility] Comment on above: Performed By: #### C VDTBH #### [facility] [address] [place] [address] Dr. Radha Suarez IG # 0.04 10e3/ul Critically high 0.00-0.03 [facility] Comment on above: Performed By: #### C VDTBH #### [facility] [address] [place] [address] Dr. Radha Suarez IG % 0.4 % Normal 0.0-0.5 [facility] Comment on above: Performed By: #### C VDTBH #### [facility] [address] [place] [address] Dr. Radha Suarez LYMPH # 1.7 103/ul Normal 1.2-3.8 [facility] Comment on above: Performed By: #### C VDTBH #### [facility] [address] [place] [address] Dr. Radha Suarez Lymphocytes/100 WBC (Bld) 19.0 % Critically low 20.5-60.0 [facility] Comment on above: Performed By: #### C VDTBH #### [facility] [address] [place] [address] Dr. Radha Suarez MANUAL DIFF REQ NO Normal [facility] Comment on above: Performed By: #### C VDTBH #### [facility] [address] [place] [address] Dr. Radha Suarez MCH (RBC) [Entitic mass] 30.5 pg Normal 26.7-34.0 [facility] Comment on above: Performed By: #### C VDTBH #### [facility] [address] [place] [address] Dr. Radha Suarez MCHC (RBC) [Mass/Vol] 33.6 g/dL Normal 29.9-35.2 [facility] Comment on above: Performed By: #### C VDTBH #### [facility] [address] [place] [address] Dr. Radha Suarez MCV (RBC) [Entitic vol] 90.9 fL Normal 81.0-99.0 [facility] Comment on above: Performed By: #### C VDTBH #### [facility] [address] [place] [address] Dr. Radha Suarez MONO # 0.6 103/ul Normal 0.3-0.8 [facility] Comment on above: Performed By: #### C VDTBH #### [facility] [address] [place] [address] Dr. Radha Suarez Monocytes/100 WBC (Bld) 6.9 % Normal 1.7-12.0 [facility] Comment on above: Performed By: #### C VDTBH #### [facility] [address] [place] [address] Dr. Radha Suarez NEUT # 6.5 103/ul Normal 1.4-6.5 [facility] Comment on above: Performed By: #### C VDTBH #### [facility] [address] [place] [address] Dr. Radha Suarez Neutrophils/100 WBC (Bld) 72.0 % Normal 43.0-75.0 [facility] Comment on above: Performed By: #### C VDTBH #### [facility] [address] [place] [address] Dr. Radha Suarez Platelet mean volume (Bld) [Entitic vol] 8.9 fL Critically low 9.5-13.5 [facility] Comment on above: Performed By: #### C VDTBH #### [facility] [address] [place] [address] Dr. Radha Suarez PLT 324 103/ul Normal 150-450 [facility] Comment on above: Performed By: #### C VDTBH #### [facility] [address] [place] [address] Dr. Radha Suarez RBC 4.82 106/ul Normal 4.20-5.40 [facility] Comment on above: Performed By: #### C VDTBH #### [facility] [address] [place] [address] Dr. Radha Suarez WBC 9.0 103/ul Normal 4.0-11.0 [facility] Comment on above: Performed By: #### C VDTBH #### [facility] [address] [place] [address] Dr. Radha Suarez Covid-19 PCR ([facility])on 12-26 SARS-CoV-2 (COVID-19) RNA RENÉ+probe Ql (Unsp spec) Not detected Normal NOT DETECTED [facility] Comment on above: Result Comment: When diagnostic [...] for this test is supported by the [employer]'s declaration that [...] used). Performed By: #### C VDTB #### [facility] [address] [place] [address] Dr. Radha Suarez PROF 14(COMP METB)on 022 Albumin [Mass/Vol] 3.9 g/dL Normal 3.4-5.[address] [facility] Comment on above: Performed By: #### B MEDICAL BILL PROCESSOR, CMP #### [facility] [address] [place] [address] Dr. Radha Suarez Albumin/Globulin [Mass ratio] 1.0 {ratio} Normal [facility] Comment on above: Performed By: #### B MEDICAL BILL PROCESSOR, CMP #### [facility] [address] [place] [address] Dr. Radha Suarez ALP [Catalytic activity/Vol] 96 U/L Normal 46-116 [facility] Comment on above: Performed By: #### B MEDICAL BILL PROCESSOR, CMP #### [facility] [address] [place] [address] Dr. Radha Suarez ALT [Catalytic activity/Vol] 26 U/L Normal 14-59 [facility] Comment on above: Performed By: #### B MEDICAL BILL PROCESSOR, CMP #### [facility] [address] [place] [address] Dr. Radha Suarez Anion gap [Moles/Vol] 13.6 mmol/L Normal [facility] Comment on above: Performed By: #### B MEDICAL BILL PROCESSOR, CMP #### [facility] [address] [place] [address] Dr. Radha Suarez AST [Catalytic activity/Vol] 17 U/L Normal 15-37 [facility] Comment on above: Performed By: #### B MEDICAL BILL PROCESSOR, CMP #### [facility] [address] [place] [address] Dr. Radha Suarez Bilirubin [Mass/Vol] 0.3 mg/dL Normal 0.2-1.0 [facility] Comment on above: Performed By: #### B MEDICAL BILL PROCESSOR, CMP #### [facility] [address] [place] [address] Dr. Radha Suarez Calcium [Mass/Vol] 9.1 mg/dL Normal 8.5-10.[address] [facility] Comment on above: Performed By: #### B MEDICAL BILL PROCESSOR, CMP #### [facility] [address] [address] [address] Radha Suarez Chloride [Moles/Vol] 106 mmol/L Normal 98-107 [facility] Comment on above: Performed By: #### B MEDICAL BILL PROCESSOR, CMP #### [facility] [address] [address] [address] Radha Suarez CO2 [Moles/Vol] 26.8 mmol/L Normal 21.0-32.0 [facility] Comment on above: Performed By: #### B MEDICAL BILL PROCESSOR, CMP #### [facility] [address] [place] [address] Dr. Radha Suarez Creatinine [Mass/Vol] 0.94 mg/dL Normal 0.55-1.02 [facility] Comment on above: Performed By: #### B MEDICAL BILL PROCESSOR, CMP #### [facility] [address] [place] [address] Dr. Radha Suarez EGFR-AF KYRGYZ >60 Normal >=60 [facility] Comment on above: Performed By: #### B MEDICAL BILL PROCESSOR, CMP #### [facility] [address] [place] [address] Dr. Radha Suarez EGFR-NON AF KYRGYZ >60 Normal >=60 [facility] Comment on above: Performed By: #### B MEDICAL BILL PROCESSOR, CMP #### [facility] [address] [place] [address] Dr. Radha Suarez Globulin (S) [Mass/Vol] 4.1 g/dL Normal [facility] Comment on above: Performed By: #### B MEDICAL BILL PROCESSOR, CMP #### [facility] [address] [place] [address] Dr. Radha Suarez Glucose [Mass/Vol] 115 mg/dL Critically high 74-106 [facility] Comment on above: Performed By: #### B MEDICAL BILL PROCESSOR, CMP #### [facility] [address] [place] [address] Dr. Radha Suarez Potassium [Moles/Vol] 3.4 mmol/L Critically low 3.5-5.1 [facility] Comment on above: Performed By: #### B MEDICAL BILL PROCESSOR, CMP #### [facility] [address] [address] [address] Radha Suarez Protein [Mass/Vol] 8.0 g/dL Normal 6.4-8.[address] [facility] Comment on above: Performed By: #### B MEDICAL BILL PROCESSOR, CMP #### [facility] [address] [address] [address] Radha Suarez Sodium [Moles/Vol] 143 mmol/L Normal 136-[address] [facility] Comment on above: Performed By: #### B MEDICAL BILL PROCESSOR, CMP #### [facility] [address] [address] [address] Radha Suarez Urea nitrogen [Mass/Vol] 13.0 mg/dL Normal 7.0-18.0 [facility] Comment on above: Performed By: #### B MEDICAL BILL PROCESSOR, CMP #### [facility] [address] [address] [address] Radha Suarez Urea nitrogen/Creatinine [Mass ratio] 13.8 mg/mg Normal [facility] Comment on above: Performed By: #### B MEDICAL BILL PROCESSOR, CMP #### [facility] [address] [address] [address] Radha Suarez XR CHEST 1 Von 01-14-2022 XR CHEST 1 V EXAM: XR CHEST 1 V at 1920 hours HISTORY: SHORTNESS OF BREATH COMPARISON: [...] ZIA DESAI Date: 2022-01-14 20:21 Normal [facility] CBC AUTO DIFFon 01-13-2022 BASO # 0.0 103/ul Normal 0.0-0.1 [facility] Comment on above: Performed By: #### C VDTBH #### [facility] [address] [place] [address] [address] Radha Suarez Basophils/100 WBC (Bld) 0.5 % Normal 0.2-2.0 [facility] Comment on above: Performed By: #### C VDTBH #### [facility] [address] [place] [address] Dr. Radha Suarez EO # 0.1 103/ul Normal 0.0-0.7 [facility] Comment on above: Performed By: #### C VDTBH #### [facility] [address] [place] [address] Dr. Radha Suarez Eosinophils/100 WBC (Bld) 1.0 % Normal 0.9-7.0 [facility] Comment on above: Performed By: #### C VDTBH #### [facility] [address] [place] [address] Dr. Radha Suarez Erythrocyte distribution width (RBC) [Ratio] 14.6 % Normal 11.0-15.0 [facility] Comment on above: Performed By: #### C VDTBH #### [facility] [address] [place] [address] Dr. Radha Suarez Hematocrit (Bld) [Volume fraction] 42.3 % Normal 36.0-48.0 [facility] Comment on above: Performed By: #### C VDTBH #### [facility] [address] [place] [address] Dr. Radha Suarez Hemoglobin (Bld) [Mass/Vol] 13.7 g/dL Normal 12.0-16.0 [facility] Comment on above: Performed By: #### C VDTBH #### [facility] [address] [place] [address] Dr. Radha Suarez IG # 0.04 10e3/ul Critically high 0.00-0.03 [facility] Comment on above: Performed By: #### C VDTBH #### [facility] [address] [place] [address] Dr. Radha Suarez IG % 0.5 % Normal 0.0-0.5 [facility] Comment on above: Performed By: #### C VDTBH #### [facility] [address] [place] [address] Dr. Radha Suarez LYMPH # 1.8 103/ul Normal 1.2-3.8 [facility] Comment on above: Performed By: #### C VDTBH #### [facility] [address] [place] [address] Dr. Radha Suarez Lymphocytes/100 WBC (Bld) 21.4 % Normal 20.5-60.0 [facility] Comment on above: Performed By: #### C VDTBH #### [facility] [address] [place] [address] Dr. Radha Suarez MANUAL DIFF REQ NO Normal [facility] Comment on above: Performed By: #### C VDTBH #### [facility] [address] [place] [address] Dr. Radha Suarez MCH (RBC) [Entitic mass] 30.0 pg Normal 26.7-34.0 [facility] Comment on above: Performed By: #### C VDTBH #### [facility] [address] [place] [address] Dr. Radha Suarez MCHC (RBC) [Mass/Vol] 32.4 g/dL Normal 29.9-35.2 [facility] Comment on above: Performed By: #### C VDTBH #### [facility] [address] [place] [address] Dr. Radha Suarez MCV (RBC) [Entitic vol] 92.8 fL Normal 81.0-99.0 [facility] Comment on above: Performed By: #### C VDTBH #### [facility] [address] [place] [address] Dr. Radha Suarez MONO # 0.7 103/ul Normal 0.3-0.8 [facility] Comment on above: Performed By: #### C VDTBH #### [facility] [address] [place] [address] Dr. Radha Suarez Monocytes/100 WBC (Bld) 7.9 % Normal 1.7-12.0 [facility] Comment on above: Performed By: #### C VDTBH #### [facility] [address] [place] [address] Dr. Radha Suarez NEUT # 5.6 103/ul Normal 1.4-6.5 [facility] Comment on above: Performed By: #### C VDTBH #### [facility] [address] [place] [address] [address] Radha Suarez Neutrophils/100 WBC (Bld) 68.7 % Normal 43.0-75.0 [facility] Comment on above: Performed By: #### C VDTBH #### [facility] [address] [place] [address] [address] Radha Suarez Platelet mean volume (Bld) [Entitic vol] 9.5 fL Normal 9.5-13.5 [facility] Comment on above: Performed By: #### C VDTBH #### [facility] [address] [place] [address] Dr. Radha Suarez PLT 321 103/ul Normal 150-450 [facility] Comment on above: Performed By: #### C VDTBH #### [facility] [address] [place] [address] Dr. Radha Suarez RBC 4.56 106/ul Normal 4.20-5.40 [facility] Comment on above: Performed By: #### C VDTBH #### [facility] [address] [place] [address] Dr. Radha Suarez WBC 8.2 103/ul Normal 4.0-11.0 [facility] Comment on above: Performed By: #### C VDTBH #### [facility] [address] [place] [address] Dr. Radha Suarez FREE T3on 01-13-2022 FREE T3 1.99 pg/mlL Critically low 2.18-3.98 [facility] Comment on above: Performed By: #### C BC #### [facility] [address] [place] [address] Dr. Radha Suarez FREE T4on 01-13-2022 Free T4 [Mass/Vol] 1.02 ng/dL Normal 0.76-1.[address] [facility] Comment on above: Performed By: #### C VDTB #### [facility] [address] [place] [address] [address] Radha Suarez MRI LUMBAR SPINE WO IVCONon 01-13-2022 MRI LUMBAR SPINE WO IVCON * * *Final Report* * * DATE OF EXAM: Jan 13 2022 2:53PM [facility] 0303 - MRI LUMBAR SPINE WO [...] crest and there are 5 lumbar-type vertebrae. Form Maker Plaster: PSCB Transcribe Date/Time: Jan 13 2022 3:43P Dictated by : KIERAN MONTOYA MD This examination was interpreted and the report reviewed and electronically signed by: KIERAN MONTOYA MD on Jan 13 2022 3:50PM EST [id number] CN Normal [facility] MRI THORACIC SPINE WO IVCONo n 01-13-2022 MRI THORACIC SPINE WO IVCON * * *Final Report* * * DATE OF EXAM: Jan 13 2022 2:53PM [facility] 0325 - MRI THORACIC SPINE WO [...] crest and there are 5 lumbar-type vertebrae. Form Maker Plaster: PSCB Transcribe Date/Time: Jan 13 2022 3:43P Dictated by : KIERAN MONTOYA MD This examination was interpreted and the report reviewed and electronically signed by: KIERAN MONTOYA MD on Jan 13 2022 3:50PM EST [id number] CN Normal [facility] No Panel Informationon 01-13 [facility] PROF CHEM 8 (BAS METB)on Anion gap [Moles/Vol] 11.3 mmol/L Normal [facility] Comment on above: Performed By: #### C BC #### [facility] [address] [place] [address] [address] Radha Suarez Calcium [Mass/Vol] 9.5 mg/dL Normal 8.5-10.1 [facility] Comment on above: Performed By: #### C BC #### [facility] [address] [place] [address] [address] Radha Suarez Chloride [Moles/Vol] 105 mmol/L Normal 98-107 [facility] Comment on above: Performed By: #### C BC #### [facility] [address] [address] [address] Radha Suarez CO2 [Moles/Vol] 28.2 mmol/L Normal 21.0-32.0 [facility] Comment on above: Performed By: #### C BC #### [facility] [address] [place] [address] Dr. Radha Suarez Creatinine [Mass/Vol] 0.86 mg/dL Normal 0.55-1.02 [facility] Comment on above: Performed By: #### C BC #### [facility] [address] [place] [address] Dr. Radha Suarez EGFR-AF KYRGYZ >60 Normal >=60 [facility] Comment on above: Performed By: #### C BC #### [facility] [address] [place] [address] Dr. Radha Suarez EGFR-NON AF KYRGYZ >60 Normal >=60 [facility] Comment on above: Performed By: #### C BC #### [facility] [address] [address] [address] Radha Suarez Glucose [Mass/Vol] 99 mg/dL Normal 74-106 [facility] Comment on above: Performed By: #### C BC #### [facility] [address] [place] [address] Dr. Radha Suarez Potassium [Moles/Vol] 3.5 mmol/L Normal 3.5-5.1 [facility] Comment on above: Performed By: #### C BC #### [facility] [address] [address] [address] Radha Suarez Sodium [Moles/Vol] 141 mmol/L Normal 136-[address] [facility] Comment on above: Performed By: #### C BC #### [facility] [id number] Radha Suarez Urea nitrogen [Mass/Vol] 15.0 mg/dL Normal 7.0-18.0 [facility] Comment on above: Performed By: #### C BC #### [facility] [address] [address] [address] Radha Suarez Urea nitrogen/Creatinine [Mass ratio] 17.4 mg/mg Normal [facility] Comment on above: Performed By: #### C BC #### [facility] [address] [place] [address] [address] Radha Suarez TSHon 01-13-2022 TSH 5.692 uIU/mL Critically high 0.358-3.[address] [facility] Comment on above: Performed By: #### C BC #### [facility] [address] [address] [address] Radha Suarez C-REACTIVE PROTEIN (CRP)on 0 12-04-2021 CRP [Mass/Vol] 0.9 mg/dL High <0.9 mg/dL [facility] ESR Westergren method (Bld) [Velocity]on 12-04-2021 ESR (Bld) [Velocity] 17 mm/h 0 - 20 mm/hr [facility] HbA1c (Bld)on 12-04-2021 Average glucose Estimated from glycated hemoglobin (Bld) [Mass/Vol] 111 mg/dL [facility] HbA1c (Bld) [Mass fraction] 5.5 % 4.3 - 5.6 % [facility] CNOVon 12-03-2021 CNOV Office Visit (PAINLN) NATO PALACIOS ([id number]) 1970 F Date Time Provider Department 12/03/21 3:00 PM LAZARUS JOHNSON During your visit today, we recorded the following information about you: Pulse Height 85/minute 1.524 m Lazarus Johnson MD 12/14/2021 9:39 AM Signed SUBJECTIVE: Ms. Palacios a 51 year old female referred by [...] supervised home exercise program (HEP): No 5. Purchasing Analyst: No Passive conservative therapy lasting 6 weeks in the last six months (see below) 1. Medical devises: No 2. Acupuncture: No 3. Tens unit: No 4. Prescription pain medication: No 5. 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 MUSCULOSKELETAL: Low back SKIN: Negative for lesions, rash, and itching PSYCH: Positive for Depression and Anxiety HEMATOLOGY/LYMPHOLOG Y Negative for prolonged bleeding, bruising easily or [...] No past surgical history on file. EXAMINATION: [id number] TERIOR: Scoliosis: No Pelvic Tilt: No Leg Length [...] sounds no (more content not included)... Normal [facility] CRP SerPl-mCncon 12-03-2021 CRP [Mass/Vol] 0.9 mg/dL High <0.9 [facility] Comment on above: Order Comment: Charles ayala Type: BLOOD SPECIMEN Ordering Facility: [facility] Address: [address] [place] [address] Performed By: #### 1 [id number] #### [facility] CLIA [id number] [address] [place] [address] [place] ESR Westergren method (Bld) [Velocity]on 12-03-2021 ESR (Bld) [Velocity] 17 mm/h Normal 0-20 [facility] Comment on above: Order Comment: Charles ayala Type: BLOOD SPECIMEN Ordering Facility: [facility] Address: [address] [place] [address] Performed By: #### 4 [id number] #### [facility] CLIA [id number] [address] [place] [address] [place] HGB A1Con 12-03-2021 Average glucose Estimated from glycated hemoglobin (Bld) [Mass/Vol] 111 mg/dL Normal [facility] Comment on above: Order Comment: Charles ayala Type: BLOOD SPECIMEN Ordering Facility: [facility] Address: [address] [place] [address] Result Comment: eAG: (Estimated average glucose) is a calculated value from HgbA1c and is manufacturer's representative of the average blood glucose level in the last 2-3 month period. Performed By: #### H BA1C #### [facility] CLIA [id number] [address] [place] [address] [place] HbA1c (Bld) [Mass fraction] 5.5 % Normal 4.3-5.6 [facility] Comment on above: Order Comment: Speci men Type: BLOOD SPECIMEN Ordering Facility: [facility] Address: [address] [place] [address] [place] [address] Result Comment: Raymundo ican Diabetes Association guidelines indicate that patients with HgbA1c in the range 5.7-6.4% are at increased risk for development of diabetes, and intervention by lifestyle modification may be beneficial. HgbA1c greater or equal to 6.5% is considered diagnostic of diabetes. Performed By: #### H BA1C #### [facility] CLIA [id number] [address] [place] [address] [place] No Panel Informationon 12-03 [facility] XR LUMBAR 3V AP/LAT/L5-S1on 12-03-2021 XR [...] subluxation at L4-5 with facet degenerative changes Form Maker Plaster: PSCB Transcribe Date/Time: Dec 04 2021 8:19P Dictated by : PARMJIT PIMENTEL MD This examination was interpreted and the report reviewed and electronically signed by: PARMJIT PIMENTEL MD on Dec 04 2021 8:20PM EST [id number] CN Normal [facility] CNPNon 12-02-2021 CNPN Telephone (PAINLN) NATO PALACIOS ([id number]) 1970 F Date Time Provider Department 12/02/21 LAZARUS JOHNSON PAINLN During your visit today, we recorded the following information about you: Keren Rosales MA 12/02/2021 1:49 PM Signed Patient was advised of the following: This is a follow up phone call regarding your appointment with Dr Johnson, which you are scheduled to see at [facility] on 12/03/2021 1) Have you been evaluated [...] need to reschedule please call us at [phone]. Left VM with new patient policy advised [...] Status:Closed by KEREN ROSALES on 12/02/21 Normal [facility] XR FOOT LT MIN 3 VIEWSon XR [...] by: NAOMIE VELASQUEZ Date: 2021-11-12 21:36 Normal [facility] XR CHEST 2 Von 07-24-2021 SARS-CoV-2 (COVID-19) [...] by: NAOMIE VELASQUEZ Date: 2021-07-23 22:04 Normal [facility] Consent for Treatmenton Consent for Treatment [id number] #1.00CD:127 Normal [facility] Registrationon 03-05-2020 Registration [id number] #1.00CD:127 [facility] Consenton 02-29-2020 Consent [id number]#1.00CD:127 [facility] Vital Signs Date Time Vital Sign Value Performing Clinician Viola faith 03-28-2024 17:03-0400 Body height 151.8 cm Whit 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 Phone: [facility] 03-28-2024 17:03-0400 Body mass index (BMI) [Ratio] 43.09 kg/m2 Whit Aichholz MEDICAL BILL PROCESSOR Work Phone: [facility] 03-28-2024 17:03-0400 Body temperature 98.49 [degF] Whit Aichholz MEDICAL BILL PROCESSOR Work Phone: [facility] 03-28-2024 17:03-0400 Body weight 99.25 kg Whit Aichholz MEDICAL BILL PROCESSOR Work Phone: [facility] 03-28-2024 17:03-0400 Diastolic blood pressure 94 mm[Hg] Whit Aichholz MEDICAL BILL PROCESSOR Work Phone: [facility] 03-28-2024 17:03-0400 Heart rate 89 /min Whit Aichholz MEDICAL BILL PROCESSOR Work Phone: [facility] 03-28-2024 17:03-0400 Respiratory rate 19 /min Whit Brennenhholz MEDICAL BILL PROCESSOR Work Phone: [facility] 03-28-2024 17:03-0400 SaO2% (BldA) [Mass fraction] 96 % Whit Brennenhalissonz MEDICAL BILL PROCESSOR Work Phone: [facility] 03-28-2024 17:03-0400 Systolic blood pressure 140 mm[Hg] Whit Aichholz MEDICAL BILL PROCESSOR Work Phone: [facility] 12-03-2021 15:14-0400 Body height 152.4 cm Lazarus Johnson MD Work Phone: [facility] 12-03-2021 15:14-0400 Heart rate 85 /min Lazarus Johnson MD Work Phone: [facility] 12-03-2021 15:140400 SaO2% (BldA) [Mass fraction] 96 % Lazarus Johnson MD Work Phone: [facility] Encounters Encounter Date Encounter Type Care Provider Facility Start: 05-04-2024 End: 05-04-2024 Refill Whit Franchesca MEDICAL BILL PROCESSOR Work Phone: [facility] Comment on above: Gastroesophageal ref lux disease, unspecified whether esophagitis present Start: 04-12-2024 End: 04-12-2024 Refill Whit Franchesca MEDICAL BILL PROCESSOR Work Phone: [facility] Comment on above: Oral thrush (Primary Dx) Start: 03-28-2024 End: 03-28-2024 Periodic preventive med est patient 40-64yrs Whit Sorensen MEDICAL BILL PROCESSOR Work Phone: [facility] Comment on above: Encounter for annual wellness visit (Primary Dx); Migraine with aura and without status migrainosus, not intractable (CMS/HCC); Primary insomnia; Pre-operative clearance; Elevated blood pressure, situational; Morbid obesity due to excess calories (CMS/HCC); Current smoker Start: 03-28-2024 End: 03-28-2024 ambulatory WHIT AICHHOLZ Not Available Start: 03-28-2024 End: 03-28-2024 Bamboo flowsheet Whit Franchesca MEDICAL BILL PROCESSOR Work Phone: [facility] Start: 03-28-2024 End: 03-28-2024 Bamboo flowsheet Whit Franchesca MEDICAL BILL PROCESSOR Work Phone: [facility] Start: 03-28-2024 End: 03-28-2024 Patient encounter procedure Whit Sorensen MEDICAL BILL PROCESSOR Work Phone: [facility] Start: 03-28-2024 End: 03-28-2024 Preoperative state Whit Sorensen MEDICAL BILL PROCESSOR Work Phone: [facility] Start: 03-26-2024 End: 03-26-2024 ambulatory WHIT AICHHOLZ Not Available Start: 03-09-2024 End: 03-09-2024 [facility] Start: 03-08-2024 End: 03-08-2024 ambulatory WHIT AICHHOLZ Not Available Start: 02-22-2024 End: 02-22-2024 ambulatory CAMPBELL HANSEN Not Available Start: 01-16-2024 End: 01-16-2024 ambulatory WHIT AICHHOLZ Not Available Start: 01-05-2024 End: 01-05-2024 ambulatory WHIT AICHHOLZ Not Available Start: 12-12-2023 End: 12-12-2023 ambulatory WHIT AICHHOLZ Not Available Start: 09-05-2023 End: 09-05-2023 ambulatory WHIT AICHHOLZ Not Available Start: 05-24-2023 End: 05-24-2023 ambulatory WHIT AICHHOLZ Not Available Start: 02-10-2023 End: 02-13-2023 ambulatory [facility] Start: 07-15-2022 End: 07-15-2022 ambulatory ROW BOSS WHIT AICHHOLZ Facility:[facility] Start: 05-30-2022 End: 05-30-[address] MEY FARNSWORTH Facility:[facility] Start: 04-21-2022 Encounter for other preprocedural examination ROW BOSS WHIT BROOKHOLZ [facility] Start: 04-20-2022 ambulatory ROW BOSS WHIT BROOKHOLZ Facil ity:[facility]1 Start: 04-16-2022 End: 04-17-2022 ambulatory ROW BOSS WHIT AICHHOLZ Facility:[facility] Start: 04-16-2022 End: 04-17-2022 Encounter for other preprocedural examination ROW BOSS WHIT AICHHOLZ Facility:[facility] Start: 03-08-2022 End: 03-09-2022 ambulatory ROW BOSS WHIT AICHHOLZ Facility:[facility] Start: 02-22-2022 Get Medical Advice Lazarus Johnson MD Work Phone: [facility] Comment on above: Refill Start: 02-11-2022 ambulatory Lazarus spain MD Work Phone: Pain Management Comment on above: Images Start: 02-03-2022 End: 02-04-2022 ambulatory Lazarus Johnson MD Work Phone: Pain Management Comment on above: Left hip/buttocks pa in Start: 01-31-[address] DOCTOR HANNON Facility :[facility] Start: 01-29-2022 ambulatory Lazarus spain MD Work Phone: Pain Management Comment on above: Injections Start: 01-25-2022 ambulatory Lazarus spain MD Work Phone: Pain Management Comment on above: Mobic Start: 01-14-2022 End: 01-14-2022 ambulatory ROW BOSS WHIT DOEALISSONElvis Facility:[facility] Start: 01-13-2022 End: 01-14-2022 ambulatory Lazarus Johnson MD Work Phone: Pain Management Comment on above: MRI and pain managem ent Start: 01-13-2022 End: 01-13-2022 Subsequent hospital visit by physician Mri [facility] Francisco (Lg Bore/1.5t) Radiology MRI Comment on above: Radiculopathy of lum bar region [M54.16] Start: 12-29-2021 ambulatory Lazarus spain MD Work Phone: Pain Management Comment on above: Pain Start: 12-22-2021 ambulatory Lazarus spain MD Work Phone: Pain Management Comment on above: Question regarding C -REACTIVE PROTEIN (CRP) Start: 12-21-2021 ambulatory Cash Kang RT(R) Radiology Comment on above: Radiology MRI Start: 12-21-2021 Patient encounter procedure Monet Kang RT(R) ORTH [place] Start: 12-11-2021 ambulatory ROW BOSS WHIT SORENSEN Facil ity:[facility]1 Start: 12-03-2021 End: 12-03-2021 Subsequent hospital visit by physician Xr [facility] [place] Radiology Comment on above: Radiculopathy of lum [...] Management Comment on above: Appointment (pain ma nagement) Start: 11-19-2021 End: 11-20-2021 ambulatory ROW BOSS WHIT SORENSEN Facility:[facility] Start: 11-12-2021 End: 11-13-2021 ambulatory ROW BOSS WHIT FRANCHESCA Facility:[facility] Start: 07-23-2021 End: 07-24-2021 ambulatory ROW BOSS WHIT FRANCHESCA Facility:[facility] Procedures Date Procedure Procedure Detail Performing Clinician Start: 01-13-2022 Mri spinal canal tho racic w/o contrast matrl Lazarus Johnson MD Work Phone: Start: 12-03-2021 Radex spine lumbosac ral 2/3 views Lazarus Johnson MD Work Phone: Start: 08-09-2018 Colonoscopy Whit lake MEDICAL BILL PROCESSOR Work Phone: Plan of Treatment Date Care Activity Detail Author Start: 08-09-2028 Screening for malign ant neoplasm of colon [facility] Start: 12-03-2024 DIABETES SCREEN DIABETES SCREEN [facility] Start: 12-03-2024 [facility] Start: 05-02-2024 End: 05-02-2024 Patient encounter procedure 05/02/2024 4:30 PM EST [facility] [address] [place] [phone] Whit Sorensen NP [address] [place] [id number] LEEROY SHAFER Start: 03-28-2024 End: 03-28-2024 Patient encounter procedure 03/28/2024 5:00 PM EDT Office Visit [facility] [address] [place] [id number] Whit Sorensen, MEDICAL BILL PROCESSOR [address] [place] [address] Arrived [facility] Comment on above: Arrived Start: 03-28-2024 End: 03-28-2025 Basic metabolic 1998 panel - Serum or Plasma Basic metabolic panel Lab Routine Pre-operative clearance Expected: 03/28/2024 (Approximate), Expires: 03/28/2025 [facility] Comment on above: Expected: 03/28/2024 (Approximate), Expires: 03/28/2025 Start: 03-28-2024 End: 03-28-2025 CBC W Auto Differential panel - Blood CBC and differential Lab Routine Pre-operative clearance Expected: 03/28/2024 (Approximate), Expires: 03/28/2025 [facility] Work Phone: Comment on above: Expected: 03/28/2024 (Approximate), Expires: 03/28/2025 Start: 03-28-2024 End: 03-28-2025 ECG 12 lead ECG 12 lead ECG Routine Pre-operative clearance Expected: 03/28/2024 (Approximate), Expires: 03/28/2025 [facility] Comment on above: Expected: 03/28/2024 (Approximate), Expires: 03/28/2025 Start: 02-25-2023 Influenza vaccination [facility] Start: 06-27-2022 DEPRESSION ASSESSMENT DEPRESSION ASS ESSMENT [facility] Start: 02-25-2022 [facility] Start: 01-26-2022 End: 03-28-2022 Basic metabolic 2000 panel - Serum or Plasma BASIC METABOLIC PNL Lab Routine Lumbar disc herniation Radiculopathy of lumbar region Expected: 01/26/2022, Expires: 03/28/2022 [facility] Work Phone: Comment on above: Expected: 01/26/2022 , Expires: 03/28/2022 Start: 2020 SHINGRIX VACCINE (1 of 2) SHINGRIX VACCINE (1 of 2) [facility] Start: 2015 COLOGUARD (FIT-DNA) COLOGUARD (FIT-D NA) [facility] [facility] Start: 2015 Colonoscopy COLONOSCOPY [facility] Start: 2015 COLORECTAL CANCER SCREENING COLORECTAL CANCER SCREENING [facility] Start: [address] COLONOGRAPHY [facility] Start: 2015 DIABETES SCREEN DIABETES SCREEN [facility] Start: 2015 FECAL OCCULT BLOOD FECAL OCCULT BLOO D [facility] Start: 2015 Lipid 1996 panel - S bunny or Plasma Lipid Screening [facility] Start: 2015 LIPID SCREEN LIPID SCREEN [facility] Start: 2015 SIGMOIDOSCOPY SIGMOIDOSCOPY [facility] Start: 2010 Mammography [facility] Start: 2010 Screening for malign ant neoplasm of breast Mammogram [facility] Start: 2000 HPV TESTING HPV TESTING [facility] Start: 2000 Screening for malign ant neoplasm of cervix HPV/Cotest [facility] Start: 1991 PAP TESTING PAP TESTING [facility] Start: 1991 Screening for malign ant neoplasm of cervix Pap Smear [facility] Start: 1989 Urine microalbumin profile [facility] Start: 1988 HEPATITIS C SCREENING HEPATITIS C SC REENING [facility] Start: 1988 HIV SCREENING HIV SCREENING [facility] Start: 1982 Adult depression screening assessment DEPRESSION SCREENING [facility] Start: 1976 PNEUMOCOCCAL (1 - PCV) PNEUMOCOCCAL (1 - PCV) [facility] Start: 1976 Pneumococcal vaccination Pneum ococcal Vaccine (1 - PCV) [facility] Start: 1975 COVID-19 VACCINE (#1) COVID-19 VACCI NE (#1) [facility] Start: 02-18-1971 COVID-19 VACCINE (#1) COVID-19 VACCI NE (#1) [facility] Start: 1970 HEPATITIS B (1 of 3 - 3-dose series) HEPATITIS B (1 of 3 - 3-dose series) [facility] Start: 1970 Hepatitis B Vaccine (1 of 3 - 3-dose series) Hepatitis B Vaccine (1 of 3 - 3-dose series) [facility] Start: 1970 Screening for malign ant neoplasm of colon [facility] End: 01-02-2023 Mri spinal canal lumbar w/o contrast material MRI LUMBAR SPINE WO IVCON Radiology Routine Radiculopathy of lumbar region 1 Occurrences starting 12/03/2021 until 01/02/2023 [facility] Work Phone: Comment on above: 1 Occurrences starti ng 12/03/2021 until 01/02/2023 End: 01-02-2023 Mri spinal canal thoracic w/o contrast matrl MRI THORACIC SPINE WO IVCON Radiology Routine Radiculopathy of lumbar region 1 Occurrences starting 12/03/2021 until 01/02/2023 [facility] Work Phone: Comment on above: 1 Occurrences starti ng 12/03/2021 until 01/02/2023 [facility] Immunizations Immunization Date Immunization Notes Care Provider [facility] 04-24-2009 novel influenza-H1N1 -09, preservative-free, injectable Whit Sorensen NP Work Phone: [facility] 04-24-2009 influenza virus vacc ine, unspecified formulation Mri Bore/1.5t) [facility] Payers Date Payer Category Payer Private Health Insurance [id number] 2023 Private Health Insurance [id number] 2021 Unknown [employer] PPO OOS [id number] 2021-Present [phone] [address] [place] [address] PPO [id number] 2021 Unknown [employer] PPO OOS [id number] 2021-Present [phone] [address] [place] [address] PPO [id number] 2021 Medicaid [employer] MEDICAID [id number] 2020-Present [phone] [address] [place] [address] Medicaid [id number] 2020 Medicaid [id number] 1970 Unknown [id number] 2.16.840.1.401950.3.579.2. 593 1970 Unknown [id number] 2.16.840.1.924322.3.579.2. 593 1970 Unknown [id number] 2.16.840.1.187120.3.579.2. 593 1970 Unknown [id number] 2.16.840.1.782473.3.579.2. 593 1970 Unknown [id number] 2.16.840.1.993728.3.579.2. 593 1970 Unknown [id number] 2.16.840.1.741216.3.579.2. 593 1970 Unknown [id number] 2.16.840.1.160754.3.579.2. 593 1970 Unknown [id number] 2.16.840.1.396567.3.579.2. 593 1970 Unknown [id number] 2.16.840.1.705494.3.579.2. 593 1970 Unknown [id number] 2.16.840.1.337235.3.579.2. 593 1970 Unknown [id number] 2.16.840.1.412128.3.579.2. 593 1970 Unknown [id number] 2.16.840.1.435751.3.579.2. 593 1970 Unknown [id number] 2.16.840.1.754563.3.579.2. 593 1970 Unknown [id number] 2.16.840.1.131730.3.579.2. 173 1970 Unknown [id number] 2.16.840.1.804168.3.579.2. 1259 1970 Unknown [id number] 2.16.840.1.507430.3.579.2. 9 1970 Unknown [id number] 2.16.840.1.122535.3.579.2. 1259 1970 Unknown [id number] 2.16.840.1.021351.3.579.2. 9 1970 Unknown [id number] 2.16.840.1.690735.3.579.2. 9 1970 Unknown [id number] 2.16.840.1.806961.3.579.2. 9 1970 Unknown [id number] 2.16.840.1.109186.3.579.2. 9 1970 Unknown [id number] 2.16.840.1.431814.3.579.2. 9 1970 Unknown [id number] 2.16.840.1.892205.3.579.2. 1259 1959 Self-pay [id number] 1959 Unknown [id number] 1959 Unknown [id number] 1959 Unknown [id number] Unknown [id number] Social History Date Type Detail Facility Tobacco smoking stat [facility] Tobacco smoking consumption unknown [facility] Start: 1970 Sex Assigned At Female C [facility] Start: 06-27-1989 End: 06-26-2023 Tobacco smoking status CAIS Smokes tobacco daily [facility] Start: 12-03-2021 Tobacco use and exposure User of smo keless tobacco [facility] Start: 12-03-2021 Alcohol intake Lifetime non-d mar (finding) [facility] Start: 12-03-2021 History SDOH Alcohol Frequency 1 [facility] Start: 11-23-2021 End: 12-03-2021 Exposure to SARS-CoV-2 (event) Unable to assess [facility] Start: 12-12-2021 End: 02-02-2022 Exposure to SARS-CoV-2 (event) Not sure [facility] Start: 12-03-2021 End: 05-24-2023 History of Social function [facility] Start: 12-03-2021 End: 05-24-2023 Tobacco use panel [facility] National Score (1-10 0), lower number is lower risk 60 [facility] Start: 10-30-2021 Gender identity Identifies as female gender (finding) [facility] Start: 06-27-1989 History of tobacco use Cigarette Smo ker [facility] Start: 03-26-2024 End: 03-28-2024 Alcoholic beverage intake Current drinker of alcohol (finding) [facility] Within the last year , have you been afraid of your partner or ex-partner? No [facility] Are you now , , , , never or living with a partner? [facility] How often to you hav e a drink containing alcohol? Never [facility] How hard is it for y ou to pay for the very basics like food, housing, medical care, and heating Somewhat hard [facility] Do you feel stress - tense, restless, nervous, or anxious, or unable to sleep at night because your mind is troubled all the time - these days [OSQ] Very much [facility] (I/We) worried wheth er (my/our) food would run out before (I/we) got money to buy more. Sometimes true [facility] In the past 12 month s, was there a time when you were not able to pay the mortgage or rent on time? Yes [facility] Start: 06-26-2023 Alcohol Comment 1-2 drinks mon thly or less [facility] Start: 1970 Sex assigned at Not on file [facility] Goals Date Patient Goal Desired Activity /State Personal health goal Clinical Notes 11-19-2021 to 03-28-2024 Whit Sorensen NP - 03/28/2024 5:52 PM Jesse Sorensen NP - 03/28/2024 5:52 PM Jesse Sorensen NP - 03/28/2024 5:51 PM Jesse Sorensen NP - 03/28/2024 5:50 PM EDTPatient Instructions Note Date & Type Note Facility 03-28-2024 History of Presen t illness Narrative Associated Problem(s): Encounter for annual wellness visit Reviewed Ht/Wt/BMI Recommend eye exam yearly Recommend dental exams twice a year Balance work/leisure activities Exercises is recommended most days of the week (appropriate as chronic conditions allow) Follow up yearly and prn Associated Problem(s): Migraine with aura (CMS/HCC) In the last 20 years: imitrex, relpax, and imitrex injectable Will trial ubrelvy Associated Problem(s): Elevated blood pressure, situational BP is better, I am going to have her stop adipex, and Fu in 4 weeks for recheck blood pressure Associated Problem(s): Primary insomnia Does not feel that trazodone is helping her stay asleep Will have her wean off trazodone: 1 pill daily for 5 days, then every other day for 5 days, then start elavil May help LACY, pain, and sleep Fu in 4 weeks Continuing medication Adipex check Neck is feeling better No headache at this time Shoulders and neck has loosen up Labs due before 05/07/24 Pt has no complaints Images from the original note were not included. Nato Palacios is a 53 y.o. female presents with chief complaint of No chief complaint on file. HPI: Here for wellness check: Diet: varies, does admit to stress eating Activity: difficult at times Stressors: work, and home life son with mental illness Concerns: not sleeping well Does report her neck is feeling better Migraines: not covering imitrex injectible anymore. Migraine This is a chronic problem. The current episode started more than 1 year ago (20 years). The problem occurs intermittently. The problem has been waxing and waning. The pain is located in the Bilateral region. The pain does not radiate. The quality of the pain is described as aching, pulsating and throbbing. The pain is moderate. Associated symptoms include phonophobia and photophobia. Pertinent negatives include no abdominal pain, back pain, blurred vision, coughing, dizziness, ear pain, eye pain, eye redness, fever, nausea, scalp tenderness, seizures, sore throat or vomiting. The symptoms are aggravated by emotional stress. She has tried triptans for the symptoms. The treatment provided moderate relief. SUBJECTIVE: MEDICATIONS: Current Outpatient Medications Medication Instructions albuterol HFA 90 mcg/act inhaler 2 puffs, Inhalation, Every 4 hours PRN amitriptyline (ELAVIL) 10 mg, Oral, Nightly atorvastatin (LIPITOR) 20 mg, Oral, Nightly ciclopirox (Penlac) 8 % solution Topical, Nightly DULoxetine (CYMBALTA) 60 mg, Oral, Daily, Discontinue the 30mg script HYDROcodone-acetaminophen ([place]) 5-325 MG tablet 1 tablet, Oral, Every 8 hours PRN hydrocortisone 2.5 % ointment Topical, 2 times daily levothyroxine (SYNTHROID, LEVOXYL) 175 mcg, Oral, Daily before breakfast omeprazole (PRILOSEC) 40 mg, Oral, 2 times daily before meals predniSONE (DELTASONE) 10 mg, Oral, Daily, 2 pills 3 times daily for 3 days, then 2 pills 2 times daily for 3 days, then 1 pill 2 times daily for 3 days, and then 1 pill daily for 3 days. Take with food terbinafine (LamISIL AT) 1 % cream Topical, 2 times daily tiZANidine (ZANAFLEX) 4 mg, Oral, Every 8 hours PRN Ubrelvy 100 mg, Oral, Daily PRN ALLERGIES: Allergies Allergen Reactions Penicillin G Swelling and Rash Penicillins Rash and Swelling Chlorhexidine Itching REVIEW OF SYMPTOMS: Review of Systems Constitutional: Negative for appetite change, chills and fever. HENT: Negative for congestion, ear pain and sore throat. Eyes: Positive for photophobia. Negative for blurred vision, pain, discharge, redness and visual disturbance. Respiratory: Negative for cough, shortness of breath and wheezing. Cardiovascular: Negative for chest pain, palpitations and leg swelling. Gastrointestinal: Negative for abdominal pain, blood in stool, constipation, diarrhea, nausea and vomiting. Genitourinary: Negative for difficulty urinating, dysuria and frequency. Musculoskeletal: Negative for arthralgias, back pain, joint swelling and myalgias. Skin: Negative for rash and wound. Neurological: Positive for headaches. Negative for dizziness, tremors, seizures and syncope. Psychiatric/Behavioral: Positive for sleep disturbance. Negative for behavioral problems, self-injury and suicidal ideas. The patient is not nervous/anxious. Hematological: Does not bruise/bleed easily. Endocrine: Negative for polydipsia, polyphagia and polyuria. Allergic/Immunologic: Negative for environmental allergies and food allergies. PAST MEDICAL HISTORY Past Medical History: Diagnosis Date Allergic rhinitis cause unspecified Bilateral edema of lower extremity Euthyroid sick syndrome 09/05/2023 Hives of unknown origin 09/05/2023 Left breast lump 09/05/2023 Migraine with aura (CMS/HCC) 09/05/2023 Migraine with aura, without mention of intractable migraine without mention of status migrainosus Simple endometrial hyperplasia without atypia Spinal stenosis, lumbar 09/05/2023 Tenosynovitis, de Quervain 09/05/2023 Tongue abnormality Past Surgical History: Procedure Laterality Date ADENOIDECTOMY 1975 CT GUIDED TRANSVAGINAL TRANSRECTAL FLUID DRAIN 03/10/2023 CT GUIDED TRANSVAGINAL TRANSRECTAL FLUID DRAIN 03/10/2023 DILATION AND CURETTAGE 1989 HERNIA REPAIR 1991 HYSTERECTOMY 2001 VAGINAL LUMBAR EPIDURAL INJECTION 2016 LUMBAR EPIDURAL INJECTION 2017 OVARIAN CYST REMOVAL 1994 TONSILLECTOMY 1976 TUBAL LIGATION Bilateral 1999 URETHRA DILATION Bladder Function and dilation of urethra, Dr Hearn, [facility] family history includes Autism in her grandson; Depression in her mother; Heart disease in her father; Stroke in her mother. OBJECTIVE: Visit Vitals BP (!) 140/94 (BP Location: Left arm, Patient Position: Sitting, BP Cuff Size: Adult long) Pulse 89 Temp 98.5 F (Temporal) Resp 19 Ht 4' 11.75 Wt 218 lb 12.8 oz SpO2 96% BMI 43.09 kg/m Smoking Status Every Day BSA 2.05 m Physical Exam Vitals and nursing note reviewed. Constitutional: General: She is not in acute distress. Appearance: Normal appearance. HENT: Head: Normocephalic and atraumatic. Right Ear: External ear normal. Left Ear: External ear normal. Nose: Nose normal. Mouth/Throat: Mouth: Mucous membranes are moist. Eyes: Extraocular Movements: Extraocular movements intact. Conjunctiva/sclera: Conjunctivae normal. Neck: Vascular: No carotid bruit. Cardiovascular: Rate and Rhythm: Normal rate and regular rhythm. Pulses: Normal pulses. Heart sounds: Normal heart sounds. Pulmonary: Effort: Pulmonary effort is normal. Breath sounds: Normal breath sounds. No wheezing or rales. Abdominal: General: Bowel sounds are normal. There is no distension. Palpations: Abdomen is soft. There is no mass. Tenderness: There is no abdominal tenderness. Musculoskeletal: General: Normal range of motion. Cervical back: Normal range of motion and neck supple. Right lower leg: No edema. Left lower leg: No edema. Lymphadenopathy: Cervical: No cervical adenopathy. Skin: General: Skin is warm and dry. Capillary Refill: Capillary refill takes 2 to 3 seconds. Findings: No rash. Neurological: General: No focal deficit present. Mental Status: She is alert and oriented to person, place, and time. Psychiatric: Mood and Affect: Mood normal. Behavior: Behavior normal. Thought Content: Thought content normal. Judgment: Judgment normal. ASSESSMENT AND PLAN: Follow up in about 4 weeks (around 04/25/2024) for Recheck. Problem List Items Addressed This Visit Current smoker Morbid obesity due to excess calories (CMS/HCC) Migraine with aura (CMS/HCC) - Primary In the last 20 years: imitrex, relpax, and imitrex injectable Will trial ubrelvy Relevant Medications Ubrogepant (Ubrelvy) 100 MG tablet amitriptyline (Elavil) 10 MG tablet Primary insomnia Does not feel that trazodone is helping her stay asleep Will have her wean off trazodone: 1 pill daily for 5 days, then every other day for 5 days, then start elavil May help LACY, pain, and sleep Fu in 4 weeks Relevant Medications amitriptyline (Elavil) 10 MG tablet Elevated blood pressure, situational BP is better, I am going to have her stop adipex, and Fu in 4 weeks for recheck blood pressure RESOLVED: Pre-operative clearance Relevant Orders CBC and differential Basic metabolic panel ECG 12 lead Encounter for annual wellness visit Reviewed Ht/Wt/BMI Recommend eye exam yearly Recommend dental exams twice a year Balance work/leisure activities Exercises is recommended most days of the week (appropriate as chronic conditions allow) Follow up yearly and prn documented in this encounter [facility] 03-28-2024 Instructions Whit Sorensen NP - 03/28/2024 5:00 PM EDT Start taking trazodone 50mg once at night for 5 days, then every other night for 5 doses, then start elavil (amitriptyline) 10mg dose at bedtime documented in this encounter [facility] 03-09-2024 Note Chief Complaint: nec k pain, radicular pain bilateral arms, headache HPI When did this problem begin: Long time, >2 years Timing/frequency of occurrence: Constant Pain description: dull ache Pain severity: 7 Radicular pain: both arms, worse on the Left Numbness/tingling: No Pain is getting: gradually worsening Weakness: No What improves symptoms: Rest What makes symptoms worse: Activity Gait disturbance: No Fine hand dexterity problem: No Previous treatment for this problem: C5-7 ACDF, L4-5 fusion Patient was previously seen regarding her cervical neck pain and found to have C5-6 pseudoarthrosis. She was scheduled for C5-6 posterior cervical discectomy and fusion earlier this year, however, it was cancelled due to patient work schedule. Patient returns for surgical evaluation of her ongoing and gradually worsening symptoms. ROS Constitutional: Fatigue: No Weight loss: No Fever: No Chills: No Past Surgical History: Procedure Laterality Date ADENOIDECTOMY HERNIA REPAIR UMBILICAL, THEN REDO W MESH HYSTERECTOMY INCONTINENCE SURGERY LAPAROTOMY OVARIAN CYSTECTOMY LUMBAR FUSION 04/29/2022 L4-5 with decompression OTHER SURGICAL HISTORY NECK SURGERY TONSILLECTOMY TUBAL LIGATION Past Medical History: Diagnosis Date Anxiety Back pain Cervical disc disorder with radiculopathy of mid-cervical region Depression Failure of bone graft GERD (gastroesophageal reflux disease) Hypothyroidism Intervertebral disc stenosis of neural canal of cervical region Low back pain Pseudarthrosis after fusion or arthrodesis Past Surgical History: Procedure Laterality Date ADENOIDECTOMY HERNIA REPAIR UMBILICAL, THEN REDO W MESH HYSTERECTOMY INCONTINENCE SURGERY LAPAROTOMY OVARIAN CYSTECTOMY LUMBAR FUSION 04/29/2022 L4-5 with decompression OTHER SURGICAL HISTORY NECK SURGERY TONSILLECTOMY TUBAL LIGATION Allergies Allergen Reactions Penicillins Swelling Bactoshield Chg [Chlorhexidine Gluconate] Itching Chlorhexidine Itching Current Outpatient Medications: albuterol 90 mcg/actuation inhaler, Inhale 2 puffs every 6 (six) hours if needed., Disp: , Rfl: fdxkioiqcb-uocvdjifnehod-ysdc 50-325-40 mg tablet, Take 1 tablet by mouth every 8 (eight) hours if needed for headaches. TAKE 1 TABLET BY MOUTH ONCE EVERY 8 HOURS IF NEEDED FOR HEADACHE, Disp: 90 tablet, Rfl: 0 clotrimazole-betamethasone (Lotrisone) cream, APPLY ONE APPLICATION TO AFFECTED AREA TWICE A DAY TO FOOT FOR 3 WEEKS, Disp: , Rfl: doxycycline (Vibra-Tabs) 100 mg tablet, TAKE 1 TAB IN MORNING & BEFORE BED FOR 10 DAYS WITH A FULL GLASS OF WATER *DON'T LIE DOWN FOR 30 MIN, Disp: , Rfl: DULoxetine (Cymbalta) [address] capsule, Take 30 mg by mouth at bedtime. Do not crush or chew., Disp: , Rfl: esomeprazole (NexIUM) [address] capsule, Take 40 mg by mouth before breakfast., Disp: , Rfl: fluconazole (Diflucan) 150 mg tablet, TAKE 1 TABLET BY MOUTH EVERY 3 DAYS IN THE MORNING FOR 3 DOSES, Disp: , Rfl: fluticasone (Flonase) 50 mcg/actuation nasal spray, Administer 1 spray into each nostril if needed each day., Disp: , Rfl: gabapentin (Neurontin) 600 mg tablet, Take 1 tablet (600 mg) by mouth in the morning, at noon, and at bedtime., Disp: 270 tablet, Rfl: 0 levothyroxine (Synthroid, Levoxyl) 137 mcg tablet, Take 137 mcg by mouth before breakfast., Disp: , Rfl: meloxicam (Mobic) 15 mg tablet, Take 1 tablet by mouth in the morning., Disp: , Rfl: nystatin (Mycostatin) 100,000 unit/gram powder, APPLY TO AFFECTED AREA 3 TIMES A DAY, Disp: , Rfl: omeprazole (PriLOSEC) [address] capsule, TAKE 1 CAPSULE BY MOUTH IN THE MORNING AND BEFORE BEDTIME, Disp: , Rfl: ondansetron ODT (Zofran-ODT) 4 mg disintegrating tablet, Take 1 tablet (4 mg) by mouth every 8 (eight) hours if needed for nausea or vomiting., Disp: 10 tablet, Rfl: 0 oxyCODONE-acetaminophen (Percocet) 5-325 mg tablet, Take 1 tablet by mouth every 6 (six) hours if needed., Disp: , Rfl: sennosides-docusate sodium (Jenny-Colace) 8.6-50 mg tablet, Take 2 tablets by mouth at bedtime., Disp: 20 tablet, Rfl: 0 transparent dressings (Tegaderm) 3 1/2 X 6 bandage, Please change dressing up to 3 times a day, Disp: 15 each, Rfl: 0 varenicline (Chantix) 1 mg tablet, Take 1 tablet by mouth in the morning and at bedtime., Disp: , Rfl: tiZANidine (Zanaflex) 4 mg tablet, Take 1 tablet (4 mg) by mouth every 8 (eight) hours if needed for muscle spasms., Disp: 90 tablet, Rfl: 0 Social History Socioeconomic History Marital status: Spouse name: Not on file Number of children: Not on file Years of education: Not on file Highest education level: Not on file Occupational History Not on file Tobacco Use Smoking status: Every Day Packs/day: 0.25 Years: 30.00 Additional pack years: 0.00 Total pack years: 7.50 Types: Cigarettes Smokeless tobacco: Never Vaping Use Vaping Use: Never used Substance and Sexual Activity (more content not included)... [facility] 04-16-2022 Note EXAMINATION: XR CHES T [...] authenticated by: NAOMIE THEODORE Date: 2022-04-16 09:47 [facility] 02-24-2022 Miscellaneous Notes Initial Office Visit - [...] evaluation prior to considering SCS trial Nato Palacios was previously advised she needed to have [...] Jane Carpenter Ma documented in this encounter [facility] 02-12-2022 Miscellaneous Notes XR and MRI results were sent to patient's mailing address. documented in this encounter [facility] 02-02-2022 Miscellaneous Notes Called patient, verified [...] will have my daughter take me to [facility] and call you tomorrow with an update. Can we call patient and get current description of her pain. The purpose of trial of LESI is to see if this would improve her current pain symptoms Yasmeen Azul APRN.CNP documented in this encounter [facility] 02-02-2022 Miscellaneous Notes Called patient, left [...] in the ED. documented in this encounter [facility] 01-27-2022 Miscellaneous Notes Order was faxed and received confirmation. 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 Type: Progress Notes Filed: 01/13/2022 2:51 PM Note Text: Radiology Service Progress Note PATIENT NAME: Nato Palacios DATE OF SERVICE: January 13, 2022 TIME: [...] ASIF Magana January 13, 2022 2:50 PM [facility] 01-13-2022 History of Presen t illness Narrative Radiology Service Progress Note PATIENT NAME: Nato Palacios DATE OF SERVICE: January 13, 2022 TIME: [...] ASIF Magana January 13, 2022 2:50 PM documented in this encounter [facility] 12-29-2021 Miscellaneous Notes PLAN: initial OV [...] Lazarus Johnson MD [facility] [facility] 12-21-2021 Note HNO ID: [id number] Author: CAMILO AnguloR) Service: ? Author Type: Technologist Type: Progress Notes Filed: 12/21/2021 1:21 PM Note Text: RADIOLOGY SERVICE PROGRESS NOTE DATE OF SERVICE: December 21, 2021 TIME OF SERVICE: 1:20 pm EVENT: EXAM/PROCEDURE NOT COMPLETED - Patient became claustrophobic, reaction was: Moderate. ADDITIONAL EVENT DETAILS: no images acquired for mri t,l-spine SIGNATURE: RT Adele(R) PATIENT NAME: Nato Palacios DATE: December 21, 2021 TIME: 1:20 PM PAGER/CONTACT #: [facility] 12-21-2021 History of Presen t illness Narrative RADIOLOGY SERVICE PROGRESS NOTE DATE OF SERVICE: December 21, 2021 TIME OF SERVICE: 1:20 pm EVENT: EXAM/PROCEDURE NOT COMPLETED - Patient became claustrophobic, reaction was: Moderate. ADDITIONAL EVENT DETAILS: no images acquired for mri t,l-spine SIGNATURE: RT Adele(R) PATIENT NAME: Nato Palacios DATE: December 21, 2021 TIME: 1:20 PM PAGER/CONTACT #: documented in this encounter [facility] 12-03-2021 Note HNO ID: [id number] Author: RT Elda(R) Service: ? Author Type: Technologist Type: Progress Notes Filed: 12/03/2021 4:38 PM Note Text: Radiology Service Progress Note PATIENT NAME: Nato Palacios DATE OF SERVICE: December 03, 2021 TIME: [...] PERIPHERAL IV DATA: Not applicable SIGNED BY: Whit Marie, RT(R) December 03, 2021 4:38 PM [facility] 12-03-2021 Note HNO ID: [id number] Author: Lazarus Johnson MD Service: ? Author Type: Physician Type: Progress Notes Filed: 12/14/2021 9:39 AM Note Text: SUBJECTIVE: Ms. Palacios a 51 year old female referred by Self Referred presents with the complaint of low back pain. She wants to know if she is a candidate for SCS (saw [employer] website). Patient reports the date of onset [...] supervised home exercise program (HEP): No 5. Purchasing Analyst: No Passive conservative therapy lasting 6 weeks in the last six months (see below) 1. Medical devises: No 2. Acupuncture: No 3. Tens unit: No 4. Prescription pain medication: No 5. 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 EXAMINATION: [id number]: Scoliosis: No Pelvic Tilt: No Leg Length [...] normal and s (more content not included)... [facility] 12-03-2021 History of Presen t illness Narrative Radiology Service Progress Note PATIENT NAME: Nato Palacios DATE OF SERVICE: December 03, 2021 TIME: [...] 2021 4:38 PM documented in this encounter [facility] 12-03-2021 History of Presen t illness Narrative SUBJECTIVE: Ms. Palacios a 51 year old female referred by Self Referred presents with the complaint of low back pain. She wants to know if she is a candidate for SCS (saw [employer] website). Patient reports the date of onset [...] supervised home exercise program (HEP): No 5. Purchasing Analyst: No Passive conservative therapy lasting 6 weeks in the last six months (see below) 1. Medical devises: No 2. Acupuncture: No 3. Tens unit: No 4. Prescription pain medication: No 5. 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 EXAMINATION: [id number]: Scoliosis: No Pelvic Tilt: No Leg Length [...] DDD. She has seen Dr. Montero in [place] - with no improvement after LESI and radiof frequency with no effect. Has had PT different series since 2017. She saw Dr. Hidalgo in [place] who referred to Dr. Perez because of [...] which included preparing to see the patient, [id number] patient care, completing clinical documentation, obtaining and/or reviewing separately obtained history, performing a medically appropriate examination, counseling and educating the patient/family/caregiver, ordering medications, tests, or procedures, communicating with other HCPs (not separately reported) and independently interpreting results (not separately reported). Lazarus Johnson MD documented in this encounter [facility] 12-02-2021 Miscellaneous Notes Patient was advised of the following: This is a follow up phone call regarding your appointment with Dr Johnson, which you are scheduled to see at [facility] on 12/03/2021 1) Have you been evaluated [...] need to reschedule please call us at [phone]. Left VM with new patient policy advised tpo call office with any questions or concerns'Keren Rosales MA documented in this encounter [facility] 11-19-2021 Note PROCEDURE: XR FOOT L [...] by: ZACH PEREZ Date: 2021-11-19 16:43 [facility] [place] Evaluation note Diagnosis Degeneration of lumbar or lumbosacral intervertebral disc- Primary Radiculopathy of lumbar region Thoracic or lumbosacral neuritis or radiculitis, unspecified Radicular pain of left lower extremity Thoracic or lumbosacral neuritis or radiculitis, unspecified Discogenic low back pain Lumbago Hyperglycemia Other abnormal glucose History of fusion of cervical spine Arthrodesis status documented [facility] Diagnosis Radiculopathy of lumbar region- Primary Thoracic or lumbosacral neuritis or radiculitis, unspecified Lumbar disc herniation Displacement of lumbar intervertebral disc without myelopathy [facility] [place] [facility] Diagnosis Lumbar [...] spine Arthrodesis status documented [facility] [place] [facility]* Diagnosis Radiculopathy of lumbar region Thoracic or lumbosacral neuritis or radiculitis, unspecified Degeneration of lumbar or lumbosacral intervertebral disc Radicular pain of left lower extremity Thoracic or lumbosacral neuritis or radiculitis, unspecified Discogenic low back pain Lumbago [facility] Diagnosis Encounter for annual wellness visit- Primary Migraine with aura and without status migrainosus, not intractable ([facility]/HCC) Primary insomnia Persistent disorder of initiating or maintaining sleep Pre-operative clearance Unspecified pre-operative examination Elevated blood pressure, situational Morbid obesity due to excess calories (CMS/HCC) Current smoker documented in this encounter [facility] HealthcareEvaluation note* Diagnosis Anxiety and depression ([facility])- Primary Gastroesophageal reflux disease, unspecified whether esophagitis present Hypothyroidism (acquired) ([facility]/HCC) Unspecified hypothyroidism Yeast dermatitis Wheezing Acute non-recurrent maxillary sinusitis Antibiotic-induced yeast infection Hypothyroidism (acquired) ([facility])- Primary Unspecified hypothyroidism Anxiety and depression ([facility]) Mixed hyperlipidemia ([facility]) Mixed hyperlipidemia Primary insomnia Persistent disorder of initiating or maintaining sleep Hypothyroidism (acquired) ([facility])- Primary Unspecified hypothyroidism 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[facility]) Chronic lymphocytic thyroiditis Morbid obesity due to excess calories ([facility]) Gastroesophageal reflux disease, unspecified whether esophagitis present Hypothyroidism (acquired) ([facility]/HCC)- Primary Unspecified hypothyroidism Morbid obesity due to excess calories ([facility]) Yeast dermatitis Encounter for screening mammogram for malignant neoplasm of breast Tinea pedis, recurrent Dermatophytosis of foot Lumbar radiculopathy- Primary Thoracic or lumbosacral neuritis or radiculitis, unspecified Morbid obesity due to excess calories (CMS/HCC) Hypothyroidism (acquired) ([facility])- Primary Unspecified hypothyroidism Major depressive disorder, recurrent, moderate ([facility]) Major depressive disorder, recurrent episode, moderate Supraventricular tachycardia, unspecified (CMS/HCC) Morbid obesity due to excess calories ([facility]/HCC) Cervical radiculopathy- Primary Brachial neuritis or radiculitis nos Elevated blood pressure, situational Morbid obesity due to excess calories ([facility]/HCC) Multiple thyroid nodules ([facility]) Nontoxic multinodular goiter Encounter for annual wellness visit- Primary Migraine with aura and without status migrainosus, not intractable ([facility]/HCC) Primary insomnia Persistent disorder of initiating or maintaining sleep Pre-operative clearance Unspecified pre-operative examination Elevated blood pressure, situational Morbid obesity due to excess calories ([facility]/HCC) Current smoker Oral thrush- Primary Candidiasis of mouth documented in this encounter [facility]* Diagnosis Anxiety and depression ([facility]/HCC)- Primary Gastroesophageal reflux disease, unspecified whether esophagitis present Hypothyroidism (acquired) ([facility]) Unspecified hypothyroidism Yeast dermatitis Wheezing Acute non-recurrent maxillary sinusitis Antibiotic-induced yeast infection Hypothyroidism (acquired) ([facility])- Primary Unspecified hypothyroidism Anxiety and depression ([facility]) Mixed hyperlipidemia ([facility]) Mixed hyperlipidemia Primary insomnia Persistent disorder of initiating or maintaining sleep Hypothyroidism (acquired) ([facility])- Primary Unspecified hypothyroidism 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[facility]) Chronic lymphocytic thyroiditis Morbid obesity due to excess calories ([facility]) Gastroesophageal reflux disease, unspecified whether esophagitis present Hypothyroidism (acquired) ([facility])- Primary Unspecified hypothyroidism Morbid obesity due to excess calories ([facility]) Yeast dermatitis Encounter for screening mammogram for malignant neoplasm of breast Tinea pedis, recurrent Dermatophytosis of foot Lumbar radiculopathy- Primary Thoracic or lumbosacral neuritis or radiculitis, unspecified Morbid obesity due to excess calories ([facility]) Hypothyroidism (acquired) ([facility])- Primary Unspecified hypothyroidism Major depressive disorder, recurrent, moderate ([facility]) Major depressive disorder, recurrent episode, moderate Supraventricular tachycardia, unspecified ([facility]) Morbid obesity due to excess calories ([facility]) Cervical radiculopathy- Primary Brachial neuritis or radiculitis nos Elevated blood pressure, situational Morbid obesity due to excess calories ([facility]) Multiple thyroid nodules ([facility]) Nontoxic multinodular goiter Encounter for annual wellness visit- Primary Migraine with aura and without status migrainosus, not intractable ([facility]) Primary insomnia Persistent disorder of initiating or maintaining sleep Pre-operative clearance Unspecified pre-operative examination Elevated blood pressure, situational Morbid obesity due to excess calories ([facility]) Current smoker Gastroesophageal reflux disease, unspecified whether esophagitis present documented in this encounter [facility] HealthcareReason for referral (narrative)* Diagnostic Procedure Only (Routine) - Closed Specialty Diagnoses / Procedures Referred By Sylvester t Referred To Contact XR IMAGING Diagnoses Radiculopathy of lumbar region Degeneration of lumbar or lumbosacral intervertebral disc Radicular pain of left lower extremity Discogenic low back pain Procedures XR LUMBAR GENERAL 3V AP/LAT/L5-S1 RADEX SPINE LUMBOSACRAL 2/3 VIEWS Lazarus Johnson MD [address] [place] [address] Xr Imaging Referral ID Status Reason Start Date Expiration Date V isits Requested Visits Authorized [id number] Closed Auto-Generate d Referral 12/03/2021 01/02/2023 1 1 [facility] Summary Purpose Family History No Family [...] W/O CONTRAST MATERIAL Lazarus Johnson MD [address] [place] [address] Mr Imaging Referral ID Status Reason Start Date Expiration Date Visits Requested Visits Authorized [id number] Authorized Auto-Generat ed Referral 12/03/2021 12/21/2021 1 1 Specialty Diagnoses / Procedures Referred By Contac t Referred To Contact MR IMAGING Diagnoses Radiculopathy of lumbar region Procedures MRI THORACIC SPINE WO IVCON MRI SPINAL CANAL THORACIC W/O CONTRAST MATRL Lazarus Johnson MD [address] [place] [address] Mr Imaging Referral ID Status Reason Start Date Expiration Date Visits Requested Visits Authorized [id number] Authorized Auto-Generat ed Referral 12/03/2021 12/21/2021 1 1 Specialty Diagnoses / Procedures Referred By Contac t Referred To Contact XR IMAGING Diagnoses Radiculopathy of lumbar region Degeneration of lumbar or lumbosacral intervertebral disc Radicular pain of left lower extremity Discogenic low back pain Procedures XR LUMBAR GENERAL 3V AP/LAT/L5-S1 RADEX SPINE LUMBOSACRAL 2/3 VIEWS Lazarus Johnson MD [address] [place] [address] Xr Imaging Referral ID Status Reason Start Date Expiration Date V isits Requested Visits Authorized [id number] Closed Auto-Generate d Referral 12/03/2021 01/02/2023 1 1 Specialty Diagnoses / Procedures Referred By Contac t Referred To Contact Diagnoses Radiculopathy of lumbar region Lumbar disc herniation Procedures CONSULT TO SPINE SURGERY OFFICE/OUTPATIENT [facility] 60-74 MINUTES Lindy Gunderson, [place] [address] [address] [place] [address] Referral ID Status Reason Start Date Expiration Date Visits Requested Visits Authorized [id number] Authorized PCP Requested Referral 01/14/2022 01/14/2023 1 1 Specialty Diagnoses / Procedures Referred By Contac t Referred To Contact Diagnoses Migraine with aura and without status migrainosus, not intractable (CMS/HCC) Whit Sorensen, [place] [address] [place] [address] Referral ID Status Reason Start Date Expiration Date V isits Requested Visits Authorized [id number] Pending Review 03/28/2024 09/24/2024 1 1 Additional Source Comments INFORMATION SOURCE (unrecogn ized section and content) DATE CREATED AUTHOR 10/22/2020 [facility] DATE CREATED AUTHOR AUTHOR'S ORGANIZ ATION 01/29/2022 [facility] DATE CREATED AUTHOR AUTHOR'S ORGANIZ ATION 03/04/2022 [facility] DATE CREATED AUTHOR AUTHOR'S ORGANIZ ATION 07/21/2022 [facility] [place] [facility] DATE CREATED AUTHOR AUTHOR'S ORGANIZ ATION 02/13/2023 [facility] DATE CREATED AUTHOR AUTHOR'S ORGANIZ ATION 03/30/2024 [facility] DATE CREATED AUTHOR AUTHOR'S ORGANIZ ATION 05/10/2024 [facility] Source Comments (unrecognize d section and content) In the event this informatio n is protected by the Federal Confidentiality of Alcohol and Drug Abuse Patient Records regulations: The Federal rules restrict any use of the information to criminally investigate or prosecute any alcohol or drug abuse patient.[facility] the event this information is protected by the Federal Confidentiality of Alcohol and Drug Abuse Patient Records regulations: The Federal rules restrict any use of the information to criminally investigate or prosecute any alcohol or drug abuse patient.[facility] the event this information is protected by the Federal Confidentiality of Alcohol and Drug Abuse Patient Records regulations: The Federal rules restrict any use of the information to criminally investigate or prosecute any alcohol or drug abuse patient.[facility] the event this information is protected by the Federal Confidentiality of Alcohol and Drug Abuse Patient Records regulations: The Federal rules restrict any use of the information to criminally investigate or prosecute any alcohol or drug abuse patient.[facility] the event this information is protected by the Federal Confidentiality of Alcohol and Drug Abuse Patient Records regulations: The Federal rules restrict any use of the information to criminally investigate or prosecute any alcohol or drug abuse patient.[facility] the event this information is protected by the Federal Confidentiality of Alcohol and Drug Abuse Patient Records regulations: The Federal rules restrict any use of the information to criminally investigate or prosecute any alcohol or drug abuse patient.[facility] the event this information is protected by the Federal Confidentiality of Alcohol and Drug Abuse Patient Records regulations: The Federal rules restrict any use of the information to criminally investigate or prosecute any alcohol or drug abuse patient.[facility] the event this information is protected by the Federal Confidentiality of Alcohol and Drug Abuse Patient Records regulations: The Federal rules restrict any use of the information to criminally investigate or prosecute any alcohol or drug abuse patient.[facility] the event this information is protected by the Federal Confidentiality of Alcohol and Drug Abuse Patient Records regulations: The Federal rules restrict any use of the information to criminally investigate or prosecute any alcohol or drug abuse patient.[facility] the event this information is protected by the Federal Confidentiality of Alcohol and Drug Abuse Patient Records regulations: The Federal rules restrict any use of the information to criminally investigate or prosecute any alcohol or drug abuse patient.[facility] the event this information is protected by the Federal Confidentiality of Alcohol and Drug Abuse Patient Records regulations: The Federal rules restrict any use of the information to criminally investigate or prosecute any alcohol or drug abuse patient.[facility] the event this information is protected by the Federal Confidentiality of Alcohol and Drug Abuse Patient Records regulations: The Federal rules restrict any use of the information to criminally investigate or prosecute any alcohol or drug abuse patient.[facility] the event this information is protected by the Federal Confidentiality of Alcohol and Drug Abuse Patient Records regulations: The Federal rules restrict any use of the information to criminally investigate or prosecute any alcohol or drug abuse patient.[facility] Reason for Visit (unrecogniz ed section and content) Reason Comments Radiology MRI Specialty Diagnoses / Procedures Referred By Contac t Referred To Contact MR IMAGING Diagnoses Radiculopathy of lumbar region Procedures MRI THORACIC SPINE WO IVCON MRI SPINAL CANAL THORACIC W/O CONTRAST MATRL Lazarus Johnson MD [address] [place] [address] [place] [address] Referral ID Status Reason Start Date Expiration Date V isits Requested Visits Authorized [id number] Closed Auto-Generate d Referral 12/23/2021 06/26/2022 1 [...] LUMBOSACRAL 2/3 VIEWS Lazarus Johnson MD [address] [facility] [place] [address] Xr Imaging Referral ID Status Reason Start Date Expiration Date V isits Requested Visits Authorized [id number] Closed Auto-Generate d Referral 12/03/2021 01/02/2023 1 1 Reason Comments Med Refill Care Teams (unrecognized sec tion and content) 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 Specialty Start Date End Date Fidel Smith MD [address] [place] [phone] PCP - [facility] 08/01/23 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 [facility]. provides no warranty or guarantee of the accuracy or completeness of information in this document.
[2024-05-10 16:53] LABS: Free T4 1.02 ng/dL (0.76-1.46)
== END 2024-05-10 16:06 | disposition home or self-care (01) ==
LOC: LAB 16:05
PROVIDERS: PCP Nurse Practitioner; Visit Provider Nurse Practitioner
DX: E03.9 Hypothyroidism, unspecified (principal)
CPT/HCPCS: 36415; 84439; 84443

== ENCOUNTER 2024-05-30 07:51 | Outpatient (OUT) | payer OTHER, SELFPAY ==
--- OUTSIDE RECORDS SUMMARY | 2024-05-30 08:04 | XMS_ITS | CCD ---
Author Organization [facility] Care Team Providers Care Resource Management Specialist Name Role Phone Unavailable Primary Care Provider Unavailabl e AICHHOLZ, CREDIT COLLECTOR WHIT Consulting Unavailable AICHHOLZ, CREDIT COLLECTOR WHIT Attending Unavailable AICHHOLZ, CREDIT COLLECTOR WHIT Admitting Unavailable AICHHOLZ, CREDIT COLLECTOR WHIT Primary Care Unavailable AICHHOLZ, CREDIT COLLECTOR WHIT Admitting Unavailable AICHHOLZ, CREDIT COLLECTOR WHIT Primary Care Unavailable AICHHOLZ, CREDIT COLLECTOR WHIT Consulting Unavailable AICHHOLZ, CREDIT COLLECTOR WHIT Attending Unavailable AICHHOLZ, CREDIT COLLECTOR WHIT Admitting Unavailable AICHHOLZ, CREDIT COLLECTOR WHIT Primary Care Unavailable AICHHOLZ, CREDIT COLLECTOR WHIT Attending Unavailable DR NAOMIE THEODORE V Consulting Unavailable AICHHOLZ, CREDIT COLLECTOR WHIT Consulting Unavailable JAYASHREE, DR DONATO Admitting Unavailable AICHHOLZ, CREDIT COLLECTOR WHIT Primary Care Unavailable JAYASHREE, DR DONATO Attending Unavailable AICHHOLZ, CREDIT COLLECTOR WHIT Admitting Unavailable AICHHOLZ, CREDIT COLLECTOR WHIT Primary Care Unavailable AICHHOLZ, CREDIT COLLECTOR WHIT Attending Unavailable AICHHOLZ, CREDIT COLLECTOR WHIT Primary Care Unavailable DR FIDEL SMITH Attending Unavailable DR FIDEL SMITH Admitting Unavailable DR NAOMIE THEODORE V Consulting Unavailable DR FIDEL SMITH Consulting Unavailable HEIDI MEJIAS Consulting Unavailable Naomie Velasquez Consulting Unavailable SISTER, TE Consulting Unavailable AICHHOLZ, CREDIT COLLECTOR WHIT Primary Care Unavailable ONEIL LOPEZ Consulting Unavailable ONEIL LOPEZ Attending Unavailable ONEIL LOPEZ Admitting Unavailable Naomie Velasquez Consulting Unavailable DR MEY FARNSWORTH Attending Unavailable JAVAD, DR MATHIAS Admitting Unavailable AICHHOLZ, CREDIT COLLECTOR WHIT Primary Care Unavailable DR MEY FARNSWORTH Consulting Unavailable AICHHOLZ, CREDIT COLLECTOR WHIT Primary Care Unavailable DR LANDEN HEARN Consulting Unavailable DIOGENES MILLER Attending Unavailable DIOGENES MILLER Admitting Unavailable ZIA DESAI Consulting Unavailable AICHHOLZ, CREDIT COLLECTOR WHIT Admitting Unavailable AICHHOLZ, CREDIT COLLECTOR WHIT Consulting Unavailable AICHHOLZ, CREDIT COLLECTOR WHIT Attending Unavailable MACK GUAMAN Primary Care Unavailable Naomie Velasquez Consulting Unavailable AICHHOLZ, CREDIT COLLECTOR WHIT Primary Care Unavailable LING GAMING Attending Unavailable AMBERLY, LING Admitting Unavailable DR ZACH PEREZ Consulting Unavailable AMBERLYLING BARBOSA Consulting Unavailable AICHHOLZ, CREDIT COLLECTOR WHIT Admitting Unavailable AICHHOLZ, CREDIT COLLECTOR WHIT Primary Care Unavailable AICHHOLZ, CREDIT COLLECTOR WHIT Attending Unavailable AICHHOLZ, CREDIT COLLECTOR WHIT Primary Care Unavailable AICHHOLZ, CREDIT COLLECTOR WHIT Admitting Unavailable AICHHOLZ, CREDIT COLLECTOR WHIT Consulting Unavailable AICHHOLZ, CREDIT COLLECTOR WHIT Attending Unavailable Unavailable Primary Care Provider Unavailnia MERCEDESHALISSONZ, WHIT Charline Primary Care Unavailable LAINE OROZCO Referring Unavailable AICHHOLZ, WHIT Attending Unavailable AICHHOLZ, WHIT Attending Unavailable AICHHOLZ, WHIT Attending Unavailable AICHHOLZ, WHIT Attending Unavailable AICHHOLZ, WHIT Attending Unavailable CAMPBELL HANSEN Attending Unavailable AICHHOLZ, WHIT Referring Unavailable AICHHOLZ, WHIT Attending Unavailable AICHHOLZ, WHIT Attending Unavailable AICHHOLZ, WHIT Attending Unavailable Fidel Smith MD Primary Care Provider LAINE OROZCO Attending Unavailable LAINE OROZCO Referring Unavailable Allergies Allergy Classification Reported Allergen(s) Allergy Type Date of Onset Reaction(s) Facility (3 sources) Penicillins; Translations: [PENICILLINS] Drug Allergy 3 Swelling [facility] (11 sources) Penicillins Drug Allergy 3 Swelling [facility] (2 sources) Penicillins Drug allergy (disorder) 3 [facility] Repository (11 sources) Chlorhexidine; Translations: [CHLORHEXIDINE] Drug Allergy 2 Itching [facility] (10 sources) Penicillin G Drug Allergy 3 Swelling, Rash [facility] (10 sources) Penicillins Drug Allergy 3 Rash, Swelling [facility] (1 source) Chlorhexidine; Translations: [CHLORHEXIDINE GLUCONATE] Drug Allergy 2 [facility] Repository Medications Current Medications Medication Drug Class(es) Dates Sig (Normalized) Sig (Original) acetaminophen 325 mg / HYDROcodone bitartrate 5 mg oral tablet (3 sources) Opioid Agonist Start: 03-26-2024 End: 03-31-2024 take 1 tablet by mouth every eight hours for pain HYDROcodone-acetami nophen ([place]) 5-325 MG tablet Indications: Cervical radiculopathy Take 1 tablet by mouth every 8 (eight) hours if needed for severe pain for up to 5 days 15 tablet 03/26/2024 03/31/2024 Active [id number] 200 actuat albuterol 0.09 mg/actuat metered dose inhaler (20 sources) beta2-Adrenergic Agonist Start: 05-24-2023 take 2 [...] BREATH amitriptyline hydrochloride 10 mg oral tablet (9 sources) Tricyclic Antidepressant Start: End: take 1 tablet by mouth at bedtime amitriptyline (Elavil) 10 MG tablet Indications: Migraine with aura and without status migrainosus, not intractable (CMS/HCC) , Primary insomnia Take 1 tablet (10 mg) by mouth at bedtime 30 tablet 1 03/28/2024 Active atorvastatin 20 mg oral tablet (10 sources) HMG-CoA Reductase Inhibitor Start: End: take 1 tablet by mouth at bedtime atorvastatin (Lipitor) 20 MG tablet Indications: Mixed hyperlipidemia (CMS/HCC) Take 1 tablet (20 mg) by mouth at bedtime 30 tablet 2 03/21/2024 Active ciclopirox 80 mg/ml topical solution (14 sources) Start: End: ciclopirox (Penlac) 8 % solution Indications: Onychomycosis Apply topically at bedtime 6.6 mL 02/23/2024 03/28/2024 Active Start: 10-22-2021 Ciclopirox (LO PROX) 8 % solution Apply jublia TO affected toenails ONCE daily FOR 48 WEEKS 0 10/22/2021 Active Comment on above: Apply jublia TO affe cted toenails ONCE daily FOR 48 WEEKS hydrocortisone 0.025 mg/mg topical ointment (10 sources) Corticosteroid Start: hydrocortisone 2.5 % ointment Indications: Allergic contact dermatitis due to cosmetics Apply topically 2 (two) times a day 20 g 11 02/22/2024 Active levothyroxine sodium 0.025 mg oral tablet (20 sources) l-Thyroxine Start: End: take 1 tablet by mouth three times weekly levothyroxine (Synthroid) 25 MCG tablet Indications: Hypothyroidism (acquired) (CMS/HCC) Take 1 tablet (25 mcg) by mouth 3 (three) times a week Take 1 pill every Tuesday, Tuesday, and Tuesday, and also take 175mcg dose EVERY DAY 12 tablet 2 05/11/2024 06/10/2024 Active Start: 03-07-2024 End: 06-10-2024 take 1 tablet by mouth in the morning levothyroxine (Synthroid, Levoxyl) 175 MCG tablet Indications: Hypothyroidism (acquired) (CMS/HCC) Take 1 tablet (175 mcg) by mouth in the morning. Take before meals. 175mcg pill every day, and then on Tuesday, Tuesday, and Tuesday take an additional 25mcg pill (separate pill). 30 tablet 2 05/11/2024 06/10/2024 Active Start: 08-17-2021 levothyroxine 150 mcg cap End: 12-03-2021 levothyroxine (SYNTHROID) 11 2 mcg tablet Take 112 mcg by mouth. 0 12/03/2021 Discontinued Comment on above: Take 112 mcg by mout h. meloxicam 15 mg oral tablet (14 sources) Nonsteroidal Anti-inflammatory Drug Start: 04-17-2024 take 1 tablet by mouth every twenty-four hours as needed for pain meloxicam (Mobic) 15 MG tablet Take 15 mg by mouth Daily as needed for mild pain (pain 1-3) 04/17/2024 Active Start: 11-19-2021 take 1 tablet by isaak th once daily meloxicam (MOBIC) 15 mg tablet Take 15 mg by mouth once daily. 0 11/19/2021 Active Comment on above: Take 15 mg by mouth once daily. nystatin [id number] unt/ml oral suspension (1 source) Polyene Antifungal Start: 04-12-20 End: 04-26-20 nystatin (Mycostatin) [id number] UNIT/ML suspension Indications: Oral thrush Take 5 [...] omeprazole 40 mg delayed release oral capsule (20 sources) Proton Pump Inhibitor Start: 02-13-20 End: [...] Active terbinafine hydrochloride 10 mg/ml topical cream (10 sources) Allylamine Antifungal Start: 02-22-20 terbinafine (LamISIL AT) 1 % cream Indications: Tinea pedis of left foot Apply topically 2 (two) times a day 42 g 11 02/22/2024 Active ubrogepant 100 mg oral tablet (3 sources) Start: 03-28-20 End: 04-27-20 take 1 tablet by mouth once daily [...] DULoxetine 60 mg delayed release oral capsule (10 sources) Serotonin and Norepinephrine Reuptake Inhibitor Start: 4 End: 4 take 1 capsule by mouth once daily DULoxetine (Cymbalta) [address] capsule Indications: Anxiety and depression (CMS/HCC) Take 1 capsule (60 mg) by mouth Daily Discontinue the 30mg script 90 capsule 1 01/10/2024 Active gabapentin 300 mg oral capsule (7 sources) Anti-epileptic Agent Start: 2 End: 2 gabapentin (NEURONTIN) 300 mg capsule Take one [...] mg oral tablet (1 source) l-Triiodothyronine End: 2021 liothyronine (CYTOMEL) 5 mcg tablet Take 5 mcg by mouth. 0 12/03/2021 Discontinued Comment on above: Take 5 mcg by mouth. methocarbamol 500 mg oral tablet (2 sources) Muscle Relaxant Start: 2023 End: 2023 take 1 tablet by mouth every eight hours as needed methocarbamol (Robaxin) 500 MG tablet Take 500 mg by mouth every 8 (eight) hours if needed for muscle spasms 04/17/2024 05/28/2024 Discontinued (Therapy completed) phentermine hydrochloride 37.5 mg oral tablet (3 sources) Sympathomimetic Amine Anorectic Start: 2023 End: 2023 take 1 tablet by mouth before mealtime phentermine (Adipex-P) 37.5 MG tablet Indications: Morbid obesity due to excess calories (CMS/HCC) Take 1 tablet (37.5 mg) by mouth in the morning. Take before meals. 30 tablet 02/29/2024 03/28/2024 Discontinued (Ineffective) 0.5 ml SUMAtriptan 12 mg/ml injection (3 sources) Serotonin-1b and Serotonin-1d Receptor Agonist End: 2023 inject 6 mg by subcutaneous injection once SUMAtriptan (Imitrex) 6 MG/0.5ML solution Inject 6 mg under the skin 1 (one) time if needed for migraine. 03/28/2024 Discontinued (Therapy completed) tiZANidine 4 mg oral tablet (18 sources) Central alpha-2 Adrenergic Agonist Start: 2023 End: 2023 take 1 tablet by mouth every eight hours as needed tiZANidine (Zanaflex) 4 MG tablet Take 4 mg by mouth every 8 (eight) hours if needed for muscle spasms 04/09/2024 05/28/2024 Discontinued (Reorder) Start: 11-10-2021 End: 03-23-2022 take 1 tablet by mouth once daily at bedtime tiZANidine (ZANAFLEX) 4 mg tablet Take 1 tablet by mouth daily at bedtime. 30 tablet 2 12/23/2021 03/23/2022 Comment on above: TAKE 1 TABLET BY ISAAK TH AT BEDTIME, MAY CAUSE DROWSINESS Take 1 tablet by isaak th daily at bedtime. traZODone hydrochloride 50 mg oral tablet (3 sources) Serotonin Reuptake Inhibitor Start: End: take 2 tablets by mouth at bedtime traZODone (Desyrel) 50 MG tablet Indications: Primary insomnia Take 2 tablets (100 mg) by mouth at bedtime 180 tablet 1 03/15/2024 03/28/2024 Discontinued (Ineffective) Problems Active Problems Problem Classification Problem Date Documented Date Episodic/Chronic Anxiety disorders (10 sources) Mixed anxiety and depressive disorder; Translations: [Anxiety disorder, unspecified] Onset: 05-24-2023 05-24-2023 Chronic Cardiac dysrhythmias (10 sources) Supraventricular tachycardia; Translations: [Supraventricular tachycardia, unspecified] [...] [Hyperglycemia, unspecified] Episodic Disorders of lipid metabolism (10 sources) Mixed hyperlipidemia; Translations: [Mixed hyperlipidemia] Onset: 09-05-2023 09-05-2023 Chronic Esophageal disorders (11 sources) Gastroesophageal reflux disease; Translations: [Gastro-esophageal reflux disease without esophagitis] Onset: 05-24-2023 05-24-2023 Chronic Genitourinary symptoms and ill-defined conditions (1 source) Unspecified urinary incontinence; Translations: [UNSPECIFIED URINARY INCONTINENCE] Onset: 02-08-2022 Chronic Headache; including migraine (20 sources) Migraine with aura; Translations: [Migraine with aura, not intractable, without status migrainosus] Onset: 09-05-2023 03-28-2024 Chronic Immunizations and screening for infectious disease (1 source) Encounter for screening for other infectious and parasitic diseases; Translations: [ENC SCREENING OTH INF PARASITIC DZ] Onset: 07-19-2022 Episodic Malaise and fatigue (10 sources) Fatigue; Translations: [Chronic fatigue, unspecified] Onset: 09-05-2023 09-05-2023 Chronic Miscellaneous mental health disorders (12 sources) Primary insomnia; Translations: [Primary insomnia] Onset: 09-05-2023 03-28-2024 Chronic Mood disorders (10 sources) Moderate recurrent major depression; Translations: [Major depressive disorder, recurrent, moderate] Onset: 09-05-2023 03-08-2024 Chronic Mycoses (20 sources) Candidiasis of skin; Translations: [Candidiasis of skin and nail] Onset: 05-24-2023 05-24-2023 Episodic Other aftercare (1 source) Other care home (current) drug therapy; Translations: [OTH PAPER PRODUCTION ENGINEER CURRENT DRUG THERAPY] Onset: 05-31-2022 Episodic Other circulatory disease (12 sources) Transient hypertension; Translations: [Elevated blood-pressure reading, without diagnosis of hypertension] Onset: 03-26-2024 03-28-2024 Episodic Other connective tissue disease (3 sources) Spasm; Translations: [Other muscle spasm] Onset: 05-28-2024 05-28-2024 Episodic Other female genital disorders (10 sources) Simple endometrial glandular hyperplasia without atypia; Translations: [Benign endometrial hyperplasia] Onset: 09-05-2023 09-05-2023 Chronic Other nervous system disorders (12 sources) Cervical myelopathy; Translations: [Disease of spinal cord, unspecified] Onset: 11-10-2018 09-05-2023 Chronic Other nutritional; endocrine; and metabolic disorders (12 sources) Morbid obesity; Translations: [Morbid (severe) obesity due to excess calories] Onset: 09-05-2023 03-28-2024 Chronic Other upper respiratory disease (10 sources) Allergic rhinitis; Translations: [Allergic rhinitis, unspecified] Onset: 09-05-2023 09-05-2023 Chronic Residual codes; unclassified (1 source) Acquired absence of both cervix and uterus; Translations: [ACQUIRED ABSENCE BOTH CERVIX AND UTERUS] Onset: 05-31-2022 Episodic Spondylosis; intervertebral disc disorders; other back problems (20 sources) Degeneration of lumbosacral intervertebral disc; Translations: [Other intervertebral disc degeneration, lumbosacral region] Onset: 11-15-2018 Chronic Substance-related disorders (13 sources) Nicotine dependence, cigarettes, uncomplicated; Translations: [Smoker] [...] UNSPECIFIED; Translations: [COUGH, UNSPECIFIED] Onset: 01-18-2022 Unclassified (10 sources) Patient on antidepressant monitoring plan Onset: 05-24-2023 05-24-2023 Unclassified (10 sources) Baseline PHQ-9 Onset: 05-24-2023 05-24-2023 Viral infection (4 sources) COVID-19; Translations: [COVID-19] Onset: 07-23-2021 Past or Other Problems Problem Classification Problem Date Documented Date Episodic/Chronic Allergic reactions (10 sources) Idiopathic urticaria; Translations: [Urticaria, unspecified] Onset: 09-05-2023 09-05-2023 Episodic Coma; stupor; and brain damage (10 sources) Daytime somnolence; Translations: [Somnolence] Onset: 09-05-2023 09-05-2023 Episodic Genitourinary symptoms and ill-defined conditions (10 sources) Urinary symptoms ; Translations: [Unspecified symptoms and signs involving the genitourinary system] Onset: 09-19-2023 09-19-2023 Episodic Malaise and fatigue (10 sources) Fatigue; Translations: [Other fatigue] Onset: 12-12-2023 12-12-2023 Episodic Nonmalignant breast conditions (10 sources) Lump in left breast; Translations: [Unspecified lump in the left breast, unspecified quadrant] Onset: 09-05-2023 09-05-2023 Episodic Other connective tissue disease (12 sources) History of cervical spine fusion; Translations: [Arthrodesis status] Onset: 12-14-2021 Episodic Other connective tissue disease (4 sources) Pain in left foot; Translations: [PAIN IN LEFT FOOT] Onset: 11-19-2021 Episodic Other connective tissue disease (10 sources) Radial styloid tenosynovitis; Translations: [Radial styloid tenosynovitis [de Quervain]] Onset: 09-05-2023 Resolved: 09-05-2023 09-05-2023 Episodic Other lower respiratory disease (3 sources) Shortness of breath; Translations: [SHORTNESS OF BREATH] Onset: 01-14-2022 Episodic Other screening for suspected conditions (not mental disorders or infectious disease) (10 sources) Patient encounter status; Translations: [Encounter for screening mammogram for malignant neoplasm of breast] Onset: 01-05-2024 01-05-2024 Episodic Other upper respiratory infections (10 sources) Acute maxillary sinusitis; Translations: [Acute maxillary sinusitis, unspecified] Onset: 05-24-2023 Resolved: 09-05-2023 09-05-2023 Episodic Residual codes; unclassified (10 sources) History of noncompliance with medication regimen; Translations: [History of medication noncompliance] Onset: 09-05-2023 Resolved: 03-08-2024 03-08-2024 Episodic Screening and history of mental health and substance abuse codes (1 source) Personal history of nicotine dependence; Translations: [PERSONAL HISTORY OF NICOTINE DEPEND] Onset: 02-08-2022 Episodic Spondylosis; intervertebral disc disorders; other back problems (20 sources) Lumbar radiculopathy; Translations: [Radiculopathy, lumbar region] Onset: 11-15-2018 Episodic Thyroid disorders (10 sources) Sick-euthyroid syndrome; Translations: [Sick-euthyroid syndrome] Onset: 09-05-2023 09-05-2023 Episodic Unclassified (1 source) CONTACT W/AND (SUSP) EXPOS COVID-19; Translations: [CONTACT W/AND (SUSP) EXPOS COVID-19] Onset: 07-15-2022 Unclassified (1 source) LOW BACK PAIN, UNSPECIFIED; Translations: [LOW BACK PAIN, UNSPECIFIED] Onset: 02-03-2022 Results Test Name Value Interpretation Reference Range Facility ALL THYROID STIM HORMONEon 07-10-2023 Interpretation and review of laboratory results Abnormal [facility] TSH Qn 7.43 m[IU]/L [facility] ALL THYROXINE (T4) FREEon Free T4 [Mass/Vol] 1.02 ng/dL 0.76 - 1. 46 ng/dL [facility] 36on 05-08-2024 36 I called patient to [...] updated JOSE Fernández with this information. [facility] Orders Onlyon 04-16-2024 Orders Only [id number] Nato Short 1970 F Date Provider Department Center 04/16/[id number] VAZQUEZ [facility] SURG [place] [address] Family History Family history unknown: Yes Normal [facility] 36on 04-13-2024 36 Patient is scheduled for neck surgery and is having increasing pain radiating down and she would like to know what she should do since dr orozco is booked until her surgery, [facility] 36on 04-09-2024 36 Approving, but needs appt for additional refills. [facility] 36on 03-09-2024 36 Approving, but needs appt for additional refills. [facility] Follow-Upon 03-09-2024 Follow-Up [id number] Nato Short 1970 F Date Provider Department Center 03/09/2024 [id number]-LAINE OROZCO MP ORTHO MPORTHO Family History Family history unknown: Yes Level of Service:87516 [facility] OFFICE/OUTPATIENT ESTABLISHED MOD MDM 30 MIN () Reason for Visit and Comments: Pain [136] - New patient [facility] 36on 03-07-2024 36 Patient called stating that she was told that she would need a cervical revision by Dr Orozco. Patient would like to schedule this surgery after eddie if possible. Patient also states that she has headaches 6 days a week all day long due to the pain. Patient is asking for referral to pain management in [place] until she can have the surgery. Patient requesting call back. Please advise. Thank you. [facility] CT CERVICAL SPINE WO CONTRAS Ton [...] Maddie Simpson MD 02/13/23 Final result Normal [facility] Covid-19 PCR (CVDTBH)on 06-27 SARS-CoV-2 (COVID-19) RNA RENÉ+probe Ql (Unsp spec) Not detected Normal NOT DETECTED [facility] Comment on above: Result Comment: This test is not yet approved or cleared by the [place] FDA. When there are no FDA-approved or cleared tests available, and other criteria are met, FDA can make tests available under an emergency access mechanism called an Emergency Use Authorization (EUA). The EUA for this test is supported by the [place] of Health and Human Service's (HHS's) declaration [...] SARS-CoV-2. Performed By: #### C VDTB #### [facility] [address] [place] [address] Dr. Radha Suarez INFLUENZA A AND B AGon 07-15 INFLUANEGH SEE BELOW Normal [facility] Comment on above: Result Comment: Nega tive for Flu A protein angiten. Infection due to Flu A cannot be ruled out. Flu A angiten in the sample may be below the detection limit of the test. Performed By: #### C VDTBH #### [facility] [address] [place] [address] Dr. Radha Suarez [facility] SEE BELOW Normal [facility] Comment on above: Result Comment: Nega tive for Flu B protein antigen. Infection due to Flu B cannot be ruled out. Flu B antigen in the sample may be below the detection limit of the test. Performed By: #### C VDTBH #### [facility] [address] [place] [address] Dr. Radha Suarez INFLUENZA A AG Negative Normal NEGATIVE SEE COMMENT [facility] Comment on above: Performed By: #### C VDTBH #### [facility] [address] [place] [address] Dr. Radha Suarez INFLUENZA B AG Negative Normal NEGATIVE SEE COMMENT [facility] Comment on above: Performed By: #### C VDTBH #### [facility] [address] [place] [address] Dr. Radha Suarez CULTURE WOUNDon 06-01-2022 CULTURE WOUND Isolate 1 Pseudomonas aeruginosa Light growth of ORGANISM 1 Pseudomonas aeruginosa ANTIBIOTIC M.I.C RX STATUS Piperacillin/Tazobac iglesias <=4 S F Ceftazidime <=1 S F Imipenem 1 S F Amikacin 4 S F Gentamicin <=1 S F Tobramycin <=1 S F Ciprofloxacin <=0.25 S F Levofloxacin <=0.[address] [facility] Comment on above: Performed By: #### C VDTBH #### [facility] [address] [place] [address] Dr. Radha Suarez CBC AUTO DIFFon 04-16-2022 BASO # 0.1 103/ul Normal 0.0-0.1 [facility] Comment on above: Performed By: #### C BC #### [facility] [address] [place] [address] Dr. Radha Suarez Basophils/100 WBC (Bld) 0.8 % Normal 0.2-2.0 [facility] Comment on above: Performed By: #### C BC #### [facility] [address] [place] [address] Dr. Radha Suarez EO # 0.1 103/ul Normal 0.0-0.7 [facility] Comment on above: Performed By: #### C BC #### [facility] [address] [place] [address] Dr. Radha Suarez Eosinophils/100 WBC (Bld) 0.8 % Critically low 0.9-7.0 [facility] Comment on above: Performed By: #### C BC #### [facility] [address] [place] [address] Dr. Radha Suarez Erythrocyte distribution width (RBC) [Ratio] 14.3 % Normal 11.0-15.0 [facility] Comment on above: Performed By: #### C BC #### [facility] [address] [place] [address] Dr. Radha Suarez Hematocrit (Bld) [Volume fraction] 44.4 % Normal 36.0-48.0 [facility] Comment on above: Performed By: #### C BC #### [facility] [address] [place] [address] Dr. Radha Suarez Hemoglobin (Bld) [Mass/Vol] 14.6 g/dL Normal 12.0-16.0 [facility] Comment on above: Performed By: #### C BC #### [facility] [address] [place] [address] Dr. Radha Suarez IG # 0.02 10e3/ul Normal 0.00-0.03 [facility] Comment on above: Performed By: #### C BC #### [facility] [address] [place] [address] Dr. Radha Suarez IG % 0.3 % Normal 0.0-0.5 [facility] Comment on above: Performed By: #### C BC #### [facility] [address] [place] [address] Dr. Radha Suarez LYMPH # 2.4 103/ul Normal 1.2-3.8 [facility] Comment on above: Performed By: #### C BC #### [facility] [address] [place] [address] Dr. Radha Suarez Lymphocytes/100 WBC (Bld) 31.6 % Normal 20.5-60.0 [facility] Comment on above: Performed By: #### C BC #### [facility] [address] [place] [address] Dr. Radha Suarez MANUAL DIFF REQ NO Normal [facility] Comment on above: Performed By: #### C BC #### [facility] [address] [place] [address] Dr. Radha Suarez MCH (RBC) [Entitic mass] 30.5 pg Normal 26.7-34.0 [facility] Comment on above: Performed By: #### C BC #### [facility] [address] [place] [address] Dr. Radha Suarez MCHC (RBC) [Mass/Vol] 32.9 g/dL Normal 29.9-35.2 [facility] Comment on above: Performed By: #### C BC #### [facility] [address] [place] [address] Dr. Radha Suarez MCV (RBC) [Entitic vol] 92.9 fL Normal 81.0-99.0 [facility] Comment on above: Performed By: #### C BC #### [facility] [address] [place] [address] Dr. Radha Suarez MONO # 0.6 103/ul Normal 0.3-0.8 [facility] Comment on above: Performed By: #### C BC #### [facility] [address] [place] [address] Dr. Radha Suarez Monocytes/100 WBC (Bld) 7.8 % Normal 1.7-12.0 [facility] Comment on above: Performed By: #### C BC #### [facility] [address] [place] [address] Dr. Radha Suarez NEUT # 4.5 103/ul Normal 1.4-6.5 [facility] Comment on above: Performed By: #### C BC #### [facility] [address] [place] [address] Dr. Radha Suarez Neutrophils/100 WBC (Bld) 58.7 % Normal 43.0-75.0 [facility] Comment on above: Performed By: #### C BC #### [facility] [address] [place] [address] Dr. Radha Suarez Platelet mean volume (Bld) [Entitic vol] 9.1 fL Critically low 9.5-13.5 [facility] Comment on above: Performed By: #### C BC #### [facility] [address] [place] [address] Dr. Radha Suarez PLT 346 103/ul Normal 150-450 [facility] Comment on above: Performed By: #### C BC #### [facility] [address] [place] [address] Dr. Radha Suarez RBC 4.78 106/ul Normal 4.20-5.40 [facility] Comment on above: Performed By: #### C BC #### [facility] [address] [place] [address] Dr. Radha Suarez WBC 7.6 103/ul Normal 4.0-11.0 [facility] Comment on above: Performed By: #### C BC #### [facility] [address] [place] [address] Dr. Radha Suarez FREE T3on 04-16-2022 FREE T3 2.50 pg/mlL Normal 2.18-3.98 [facility] Comment on above: Performed By: #### C BC #### [facility] [address] [place] [address] Dr. Radha Suarez FREE T4on 04-16-2022 Free T4 [Mass/Vol] 1.33 ng/dL Normal 0.76-1.46 [facility] Comment on above: Performed By: #### F T4 #### [facility] [address] [place] [address] Dr. Radha Suarez PROF CHEM 8 (BAS METB)on Anion gap [Moles/Vol] 8.7 mmol/L Normal [facility] Comment on above: Performed By: #### C BC #### [facility] [address] [place] [address] Dr. Radha Suarez Calcium [Mass/Vol] 9.4 mg/dL Normal 8.5-10.1 [facility] Comment on above: Performed By: #### C BC #### [facility] [address] [place] [address] Dr. Radha Suarez Chloride [Moles/Vol] 101 mmol/L Normal 98-107 [facility] Comment on above: Performed By: #### C BC #### [facility] [address] [address] [address] Radha Suarez CO2 [Moles/Vol] 30.5 mmol/L Normal 21.0-32.0 [facility] Comment on above: Performed By: #### C BC #### [facility] [address] [address] [address] Radha Suarez Creatinine [Mass/Vol] 0.72 mg/dL Normal 0.55-1.02 [facility] Comment on above: Performed By: #### C BC #### [facility] [address] [place] [address] Dr. Radha Suarez EGFR-AF MALAGASY >60 Normal >=60 [facility] Comment on above: Performed By: #### C BC #### [facility] [address] [place] [address] Dr. Radha Suarez EGFR-NON AF MALAGASY >60 Normal >=60 [facility] Comment on above: Performed By: #### C BC #### [facility] [address] [place] [address] Dr. Radha Suarez Glucose [Mass/Vol] 99 mg/dL Normal 74-106 [facility] Comment on above: Performed By: #### C BC #### [facility] [address] [place] [address] Dr. Radha Suarez Potassium [Moles/Vol] 4.2 mmol/L Normal 3.5-5.1 [facility] Comment on above: Performed By: #### C BC #### [facility] [address] [place] [address] Dr. Radha Suarez Sodium [Moles/Vol] 136 mmol/L Normal 136-145 [facility] Comment on above: Performed By: #### C BC #### [facility] [address] [place] [address] Dr. Radha Suarez Urea nitrogen [Mass/Vol] 12.0 mg/dL Normal 7.0-18.0 [facility] Comment on above: Performed By: #### C BC #### [facility] [address] [place] [address] Dr. Radha Suarez Urea nitrogen/Creatinine [Mass ratio] 16.7 mg/mg Normal [facility] Comment on above: Performed By: #### C BC #### [facility] [address] [place] [address] Dr. Radha Suarez PROTIMEon 04-16-2022 INR Coag (PPP) [Relative time] 0.98 {INR} Normal [facility] Comment on above: Performed By: #### P TT, PT #### [facility] [address] [place] [address] Dr. Radha Suarez INR GUIDELINES SEE BELOW Normal [facility] Comment on above: Result Comment: DEVI RED INR: 2.0 - 3.0 CONDITIONS NOT LISTED BELOW 2.5 - 3.5 FOR PROSTHETIC HEART VALVE REPLACEMENT 2.5 - 3.5 RECURRENT THROMBOSIS Performed By: #### P TT, PT #### [facility] [address] [place] [address] Dr. Radha Suarez PT Coag (PPP) [Time] 10.6 s Normal 9.0-11.6 [facility] Comment on above: Performed By: #### P TT, PT #### [facility] [address] [place] [address] Dr. Radha Suarez PTTon 04-16-2022 aPTT Coag (Bld) [Time] 27.9 s Normal 22.3-36.2 [facility] Comment on above: Performed By: #### P TT, PT #### [facility] [address] [place] [address] Dr. Radha Suarez TSHon 04-16-2022 TSH 0.206 uIU/mL Critically low 0.358-3.740 [facility] Comment on above: Performed By: #### C BC #### [facility] [address] [place] [address] Dr. Radha Suarez FREE T4on 03-08-2022 Free T4 [Mass/Vol] 1.59 ng/dL Critically high 0.76-1.46 [facility] Comment on above: Performed By: #### C VDTBH #### [facility] [address] [place] [address] Dr. Radha Suarez TSHon 03-08-2022 TSH 0.107 uIU/mL Critically low 0.358-3.740 [facility] Comment on above: Performed By: #### C VDTBH #### [facility] [address] [place] [address] Dr. Radha Suarez LUMBAR SPINE 4 OR 5 VWSon LUMBAR SPINE 4 OR 5 VWS [facility] Department of Radiology [address] [place] [id number] Patient Name: NATO SHORT : 1970 Sex: F Age: Race: White Pt. Location: Patient Status: D Ordered Date: 03/03/2022 2:10:00 PM Completed Date: 03/03/2022 02:31 PM Requesting Provider: LAINE OROZCO Attending Provider: LAINE OROZCO Report Copy To: Signs & Symptoms: M54.50 Low back pain, unspecified I10 History: [place] Comments: Evaluate Exam: LUMBAR SPINE 4 OR [...] report. Electronically signed: Anjum Quevedo. Transcribed by: [email or web address], User Resident: ANJUM CLIFTON Electronically Signed by: ANJUM QUEVEDO @ 03/04/2022 09:13 AM I personally read this/these film(s) with this resident Normal The [facility] Comment on above: Order Comment: Evalu ate CBC AUTO DIFFon 02-04-2022 BASO # 0.0 103/ul Normal 0.0-0.1 [facility] Comment on above: Performed By: #### C BC #### [facility] [address] [place] [address] Dr. Radha Suarez Basophils/100 WBC (Bld) 0.1 % Critically low 0.2-2.0 [facility] Comment on above: Performed By: #### C BC #### [facility] [address] [place] [address] Dr. Radha Suarez EO # 0.0 103/ul Normal 0.0-0.7 [facility] Comment on above: Performed By: #### C BC #### [facility] [address] [place] [address] Dr. Radha Suarez Eosinophils/100 WBC (Bld) 0.1 % Critically low 0.9-7.0 [facility] Comment on above: Performed By: #### C BC #### [facility] [address] [place] [address] Dr. Radha Suarez Erythrocyte distribution width (RBC) [Ratio] 14.4 % Normal 11.0-15.0 [facility] Comment on above: Performed By: #### C BC #### [facility] [address] [place] [address] Dr. Radha Suarez Hematocrit (Bld) [Volume fraction] 41.1 % Normal 36.0-48.0 [facility] Comment on above: Performed By: #### C BC #### [facility] [address] [place] [address] Dr. Radha Suarez Hemoglobin (Bld) [Mass/Vol] 13.3 g/dL Normal 12.0-16.0 [facility] Comment on above: Performed By: #### C BC #### [facility] [address] [place] [address] Dr. Radha Suarez IG # 0.09 10e3/ul Critically high 0.00-0.03 [facility] Comment on above: Performed By: #### C BC #### [facility] [address] [place] [address] Dr. Radha Suarez IG % 0.6 % Critically high 0.0-0.5 [facility] Comment on above: Performed By: #### C BC #### [facility] [address] [place] [address] Dr. Radha Suarez LYMPH # 1.1 103/ul Critically low 1.2-3.[address] [facility] Comment on above: Performed By: #### C BC #### [facility] [address] [place] [address] Dr. Radha Suarez Lymphocytes/100 WBC (Bld) 7.6 % Critically low 20.5-60.0 [facility] Comment on above: Performed By: #### C BC #### [facility] [address] [place] [address] Dr. Radha Suarez MANUAL DIFF REQ NO Normal [facility] Comment on above: Performed By: #### C BC #### [facility] [address] [place] [address] Dr. Radha Suarez MCH (RBC) [Entitic mass] 30.5 pg Normal 26.7-34.0 [facility] Comment on above: Performed By: #### C BC #### [facility] [address] [place] [address] Dr. Radha Suarez MCHC (RBC) [Mass/Vol] 32.4 g/dL Normal 29.9-35.2 [facility] Comment on above: Performed By: #### C BC #### [facility] [address] [place] [address] Dr. Radha Suarez MCV (RBC) [Entitic vol] 94.3 fL Normal 81.0-99.0 [facility] Comment on above: Performed By: #### C BC #### [facility] [address] [place] [address] Dr. Radha Suarez MONO # 0.4 103/ul Normal 0.3-0.8 [facility] Comment on above: Performed By: #### C BC #### [facility] [address] [place] [address] Dr. Radha Suarez Monocytes/100 WBC (Bld) 2.4 % Normal 1.7-12.0 [facility] Comment on above: Performed By: #### C BC #### [facility] [address] [place] [address] Dr. Radha Suarez NEUT # 13.2 103/ul Critically high 1.4-6.5 [facility] Comment on above: Performed By: #### C BC #### [facility] [address] [place] [address] Dr. Radha Suarez Neutrophils/100 WBC (Bld) 89.2 % Critically high 43.0-75.0 [facility] Comment on above: Performed By: #### C BC #### [facility] [address] [place] [address] Dr. Radha Suarez Platelet mean volume (Bld) [Entitic vol] 9.3 fL Critically low 9.5-13.5 [facility] Comment on above: Performed By: #### C BC #### [facility] [address] [place] [address] Dr. Radha Suarez PLT 358 103/ul Normal 150-450 [facility] Comment on above: Performed By: #### C BC #### [facility] [address] [address] [address] Radha Suarez RBC 4.36 106/ul Normal 4.20-5.40 [facility] Comment on above: Performed By: #### C BC #### [facility] [address] [address] [address] Radha Suarez WBC 14.8 103/ul Critically high 4.0-11.0 [facility] Comment on above: Performed By: #### C BC #### [facility] [address] [place] [address] Dr. Radha Suarez PROF CHEM 8 (BAS METB)on Anion gap [Moles/Vol] 10.7 mmol/L Normal [facility] Comment on above: Performed By: #### B MP #### [facility] [address] [place] [address] Dr. Radha Suarez Calcium [Mass/Vol] 8.6 mg/dL Normal 8.5-10.1 [facility] Comment on above: Performed By: #### B MP #### [facility] [address] [place] [address] Dr. Radha Suarez Chloride [Moles/Vol] 103 mmol/L Normal 98-107 [facility] Comment on above: Performed By: #### B MP #### [facility] [address] [place] [address] Dr. Radha Suarez CO2 [Moles/Vol] 27.2 mmol/L Normal 21.0-32.0 [facility] Comment on above: Performed By: #### B MP #### [facility] [address] [place] [address] Dr. Radha Suarez Creatinine [Mass/Vol] 0.82 mg/dL Normal 0.55-1.02 [facility] Comment on above: Performed By: #### B MP #### [facility] [address] [address] [address] Radha Suarez EGFR-AF MALAGASY >60 Normal >=60 [facility] Comment on above: Performed By: #### B MP #### [facility] [address] [address] [address] Radha Suarez EGFR-NON AF MALAGASY >60 Normal >=60 [facility] Comment on above: Performed By: #### B MP #### [facility] [address] [address] [address] Radha Suarez Glucose [Mass/Vol] 158 mg/dL Critically high 74-106 [facility] Comment on above: Performed By: #### B MP #### [facility] [address] [place] [address] Dr. Radha Suarez Potassium [Moles/Vol] 3.9 mmol/L Normal 3.5-5.1 [facility] Comment on above: Performed By: #### B MP #### [facility] [address] [place] [address] Dr. Radha Suarez Sodium [Moles/Vol] 137 mmol/L Normal 136-145 [facility] Comment on above: Performed By: #### B MP #### [facility] [address] [place] [address] Dr. Radha Suarez Urea nitrogen [Mass/Vol] 16.0 mg/dL Normal 7.0-18.0 [facility] Comment on above: Performed By: #### B MP #### [facility] [address] [place] [address] Dr. Radha Suarez Urea nitrogen/Creatinine [Mass ratio] 19.5 mg/mg Normal [facility] Comment on above: Performed By: #### B MP #### [facility] [address] [place] [address] Dr. Radha Suarez CBC AUTO DIFFon 02-03-2022 BASO # 0.0 103/ul Normal 0.0-0.1 [facility] Comment on above: Performed By: #### C VDTBH #### [facility] [address] [place] [address] Dr. Radha Suarez Basophils/100 WBC (Bld) 0.3 % Normal 0.2-2.0 [facility] Comment on above: Performed By: #### C VDTBH #### [facility] [address] [place] [address] Dr. Radha Suarez EO # 0.0 103/ul Normal 0.0-0.7 [facility] Comment on above: Performed By: #### C VDTBH #### [facility] [address] [place] [address] Dr. Radha Suarez Eosinophils/100 WBC (Bld) 0.0 % Critically low 0.9-7.0 [facility] Comment on above: Performed By: #### C VDTBH #### [facility] [address] [place] [address] Dr. Radha Suarez Erythrocyte distribution width (RBC) [Ratio] 14.2 % Normal 11.0-15.0 [facility] Comment on above: Performed By: #### C VDTBH #### [facility] [address] [place] [address] Dr. Radha Suarez Hematocrit (Bld) [Volume fraction] 43.2 % Normal 36.0-48.0 [facility] Comment on above: Performed By: #### C VDTBH #### [facility] [address] [place] [address] Dr. Radha Suarez Hemoglobin (Bld) [Mass/Vol] 13.8 g/dL Normal 12.0-16.0 [facility] Comment on above: Performed By: #### C VDTBH #### [facility] [address] [place] [address] Dr. Radha Suarez IG # 0.02 10e3/ul Normal 0.00-0.03 [facility] Comment on above: Performed By: #### C VDTBH #### [facility] [address] [place] [address] Dr. Radha Suarez IG % 0.3 % Normal 0.0-0.5 [facility] Comment on above: Performed By: #### C VDTBH #### [facility] [address] [address] [address] Radha Suarez LYMPH # 0.7 103/ul Critically low 1.2-3.8 [facility] Comment on above: Performed By: #### C VDTBH #### [facility] [address] [address] [address] Radha Suarez Lymphocytes/100 WBC (Bld) 9.8 % Critically low 20.5-60.0 [facility] Comment on above: Performed By: #### C VDTBH #### [facility] [address] [place] [address] Dr. Radha Suarez MANUAL DIFF REQ NO Normal [facility] Comment on above: Performed By: #### C VDTBH #### [facility] [address] [place] [address] Dr. Radha Suarez MCH (RBC) [Entitic mass] 29.8 pg Normal 26.7-34.0 [facility] Comment on above: Performed By: #### C VDTBH #### [facility] [address] [place] [address] Dr. Radha Suarez MCHC (RBC) [Mass/Vol] 31.9 g/dL Normal 29.9-35.2 [facility] Comment on above: Performed By: #### C VDTBH #### [facility] [address] [place] [address] Dr. Radha Suarez MCV (RBC) [Entitic vol] 93.3 fL Normal 81.0-99.0 [facility] Comment on above: Performed By: #### C VDTBH #### [facility] [address] [place] [address] Dr. Radha Suarez MONO # 0.1 103/ul Critically low 0.3-0.8 [facility] Comment on above: Performed By: #### C VDTBH #### [facility] [address] [place] [address] Dr. Radha Suarez Monocytes/100 WBC (Bld) 0.8 % Critically low 1.7-12.0 [facility] Comment on above: Performed By: #### C VDTBH #### [facility] [address] [place] [address] Dr. Radha Suarez NEUT # 6.6 103/ul Critically high 1.4-6.5 [facility] Comment on above: Performed By: #### C VDTBH #### [facility] [address] [place] [address] Dr. Radha Suarez Neutrophils/100 WBC (Bld) 88.8 % Critically high 43.0-75.0 [facility] Comment on above: Performed By: #### C VDTBH #### [facility] [address] [place] [address] Dr. Radha Suarez Platelet mean volume (Bld) [Entitic vol] 9.2 fL Critically low 9.5-13.5 [facility] Comment on above: Performed By: #### C VDTBH #### [facility] [address] [place] [address] Dr. Radha Suarez PLT 368 103/ul Normal 150-450 [facility] Comment on above: Performed By: #### C VDTBH #### [facility] [address] [place] [address] Dr. Radha Suarez RBC 4.63 106/ul Normal 4.20-5.40 [facility] Comment on above: Performed By: #### C VDTBH #### [facility] [address] [place] [address] Dr. Radha Suarez WBC 7.4 103/ul Normal 4.0-11.0 [facility] Comment on above: Performed By: #### C VDTBH #### [facility] [address] [place] [address] Dr. Radha Suarez BASO # 0.0 103/ul Normal 0.0-0.1 [facility] Comment on above: Performed By: #### C BC #### [facility] [address] [place] [address] Dr. Radha Suarez Basophils/100 WBC (Bld) 0.2 % Normal 0.2-2.0 [facility] Comment on above: Performed By: #### C BC #### [facility] [address] [place] [address] Dr. Radha Suarez EO # 0.0 103/ul Normal 0.0-0.7 [facility] Comment on above: Performed By: #### C BC #### [facility] [address] [place] [address] Dr. Radha Suarez Eosinophils/100 WBC (Bld) 0.2 % Critically low 0.9-7.0 [facility] Comment on above: Performed By: #### C BC #### [facility] [address] [place] [address] Dr. Radha Suarez Erythrocyte distribution width (RBC) [Ratio] 14.3 % Normal 11.0-15.0 [facility] Comment on above: Performed By: #### C BC #### [facility] [address] [place] [address] Dr. Radha Suarez Hematocrit (Bld) [Volume fraction] 46.6 % Normal 36.0-48.0 [facility] Comment on above: Performed By: #### C BC #### [facility] [address] [place] [address] Dr. Radha Suarez Hemoglobin (Bld) [Mass/Vol] 15.5 g/dL Normal 12.0-16.0 [facility] Comment on above: Performed By: #### C BC #### [facility] [address] [place] [address] Dr. Radha Suarez IG # 0.06 10e3/ul Critically high 0.00-0.03 [facility] Comment on above: Performed By: #### C BC #### [facility] [address] [place] [address] Dr. Radha Suarez IG % 0.5 % Normal 0.0-0.5 [facility] Comment on above: Performed By: #### C BC #### [facility] [address] [place] [address] Dr. Radha Suarez LYMPH # 0.9 103/ul Critically low 1.2-3.8 [facility] Comment on above: Performed By: #### C BC #### [facility] [address] [place] [address] Dr. Radha Suarez Lymphocytes/100 WBC (Bld) 7.2 % Critically low 20.5-60.0 [facility] Comment on above: Performed By: #### C BC #### [facility] [address] [place] [address] Dr. Radha Suarez MANUAL DIFF REQ NO Normal [facility] Comment on above: Performed By: #### C BC #### [facility] [address] [place] [address] Dr. Radha Saurez MCH (RBC) [Entitic mass] 30.7 pg Normal 26.7-34.0 [facility] Comment on above: Performed By: #### C BC #### [facility] [address] [place] [address] Dr. Radha Suarez MCHC (RBC) [Mass/Vol] 33.3 g/dL Normal 29.9-35.2 [facility] Comment on above: Performed By: #### C BC #### [facility] [address] [place] [address] Dr. Radha Suarez MCV (RBC) [Entitic vol] 92.3 fL Normal 81.0-99.0 [facility] Comment on above: Performed By: #### C BC #### [facility] [address] [place] [address] Dr. Radha Suarez MONO # 0.1 103/ul Critically low 0.3-0.8 [facility] Comment on above: Performed By: #### C BC #### [facility] [address] [place] [address] Dr. Radha Suarez Monocytes/100 WBC (Bld) 0.7 % Critically low 1.7-12.0 [facility] Comment on above: Performed By: #### C BC #### [facility] [address] [place] [address] Dr. Radha Suarez NEUT # 11.7 103/ul Critically high 1.4-6.5 [facility] Comment on above: Performed By: #### C BC #### [facility] [address] [address] [address] Radha Suarez Neutrophils/100 WBC (Bld) 91.2 % Critically high 43.0-75.0 [facility] Comment on above: Performed By: #### C BC #### [facility] [address] [place] [address] Dr. Radha Suarez Platelet mean volume (Bld) [Entitic vol] 9.1 fL Critically low 9.5-13.5 [facility] Comment on above: Performed By: #### C BC #### [facility] [address] [place] [address] Dr. Radha Suarez PLT 394 103/ul Normal 150-450 [facility] Comment on above: Performed By: #### C BC #### [facility] [address] [place] [address] Dr. Radha Suarez RBC 5.05 106/ul Normal 4.20-5.40 [facility] Comment on above: Performed By: #### C BC #### [facility] [address] [place] [address] Dr. Radha Suarez WBC 12.8 103/ul Critically high 4.0-11.0 [facility] Comment on above: Performed By: #### C BC #### [facility] [address] [place] [address] LSPINE WO CONon [...] NAOMIE THEODORE Date: 2022-02-03 09:33 Normal [facility] PROF 14(COMP METB)on 02-03- 022 Albumin [Mass/Vol] 3.9 g/dL Normal 3.4-5.0 [facility] Comment on above: Performed By: #### C VDTBH #### [facility] [address] [place] [address] Dr. Radha Suarez Albumin/Globulin [Mass ratio] 1.0 {ratio} Normal [facility] Comment on above: Performed By: #### C VDTBH #### [facility] [address] [place] [address] Dr. Radha Suarez ALP [Catalytic activity/Vol] 117 U/L Critically high 46-116 [facility] Comment on above: Performed By: #### C VDTBH #### [facility] [address] [place] [address] Dr. Radha Suarez ALT [Catalytic activity/Vol] 42 U/L Normal 14-59 [facility] Comment on above: Performed By: #### C VDTBH #### [facility] [address] [place] [address] Dr. Radha Suarez Anion gap [Moles/Vol] 16.0 mmol/L Normal [facility] Comment on above: Performed By: #### C VDTBH #### [facility] [address] [place] [address] Dr. Radha Suarez AST [Catalytic activity/Vol] 25 U/L Normal 15-37 [facility] Comment on above: Performed By: #### C VDTBH #### [facility] [address] [place] [address] Dr. Radha Suarez Bilirubin [Mass/Vol] 0.2 mg/dL Normal 0.2-1.0 [facility] Comment on above: Performed By: #### C VDTBH #### [facility] [address] [place] [address] Dr. Radha Suarez Calcium [Mass/Vol] 9.6 mg/dL Normal 8.5-10.1 [facility] Comment on above: Performed By: #### C VDTBH #### [facility] [address] [place] [address] Dr. Radha Suarez Chloride [Moles/Vol] 104 mmol/L Normal 98-107 [facility] Comment on above: Performed By: #### C VDTBH #### [facility] [address] [place] [address] Dr. Radha Suarez CO2 [Moles/Vol] 26.0 mmol/L Normal 21.0-32.0 [facility] Comment on above: Performed By: #### C VDTBH #### [facility] [address] [place] [address] Dr. Radha Suarez Creatinine [Mass/Vol] 0.82 mg/dL Normal 0.55-1.02 [facility] Comment on above: Performed By: #### C VDTBH #### [facility] [address] [place] [address] Dr. Radha Suarez EGFR-AF MALAGASY >60 Normal >=60 [facility] Comment on above: Performed By: #### C VDTBH #### [facility] [address] [place] [address] Dr. Radha Suarez EGFR-NON AF MALAGASY >60 Normal >=60 [facility] Comment on above: Performed By: #### C VDTBH #### [facility] [address] [place] [address] Dr. Radha Suarez Globulin (S) [Mass/Vol] 3.8 g/dL Normal [facility] Comment on above: Performed By: #### C VDTBH #### [facility] [address] [place] [address] Dr. Radha Suarez Glucose [Mass/Vol] 153 mg/dL Critically high 74-106 [facility] Comment on above: Performed By: #### C VDTBH #### [facility] [address] [place] [address] Dr. Radha Suarez Potassium [Moles/Vol] 4.0 mmol/L Normal 3.5-5.1 [facility] Comment on above: Performed By: #### C VDTBH #### [facility] [address] [place] [address] Dr. Radha Suarez Protein [Mass/Vol] 7.7 g/dL Normal 6.4-8.2 [facility] Comment on above: Performed By: #### C VDTBH #### [facility] [address] [place] [address] Dr. Radha Suarez Sodium [Moles/Vol] 142 mmol/L Normal 136-145 [facility] Comment on above: Performed By: #### C VDTBH #### [facility] [address] [place] [address] Dr. Radha Suarez Urea nitrogen [Mass/Vol] 10.0 mg/dL Normal 7.0-18.0 [facility] Comment on above: Performed By: #### C VDTBH #### [facility] [address] [place] [address] Dr. Radha Suarez Urea nitrogen/Creatinine [Mass ratio] 12.2 mg/mg Normal [facility] Comment on above: Performed By: #### C VDTBH #### [facility] [address] [place] [address] Dr. Radha Suarez PROF CHEM 8 (BAS METB)on Anion gap [Moles/Vol] 14.9 mmol/L Normal [facility] Comment on above: Performed By: #### C VDTBH #### [facility] [address] [address] [address] Radha Suarez Calcium [Mass/Vol] 9.3 mg/dL Normal 8.5-10.1 [facility] Comment on above: Result Comment: resu lt to follow Previously reported as: 9.1 On 02/03/2022 09:13 By [email or web address] Performed By: #### C VDTBH #### [facility] [address] [address] [address] Radha Suarez Chloride [Moles/Vol] 104 mmol/L Normal 98-107 [facility] Comment on above: Performed By: #### C VDTBH #### [facility] [address] [place] [address] Dr. Radha Suarez CO2 [Moles/Vol] 25.7 mmol/L Normal 21.0-32.0 [facility] Comment on above: Performed By: #### C VDTBH #### [facility] [address] [place] [address] Dr. Radha Suarez Creatinine [Mass/Vol] 0.93 mg/dL Normal 0.55-1.02 [facility] Comment on above: Performed By: #### C VDTBH #### [facility] [address] [place] [address] Dr. Radha Suarez EGFR-AF MALAGASY >60 Normal >=60 [facility] Comment on above: Performed By: #### C VDTBH #### [facility] [address] [place] [address] Dr. Radha Suarez EGFR-NON AF MALAGASY >60 Normal >=60 [facility] Comment on above: Performed By: #### C VDTBH #### [facility] [address] [place] [address] Dr. Radha Suarez Glucose [Mass/Vol] 173 mg/dL Critically high 74-106 [facility] Comment on above: Performed By: #### C VDTBH #### [facility] [address] [place] [address] Dr. Radha Suarez Potassium [Moles/Vol] 3.6 mmol/L Normal 3.5-5.1 [facility] Comment on above: Performed By: #### C VDTBH #### [facility] [address] [place], [place] [address] Dr. Radha Suarez Sodium [Moles/Vol] 141 mmol/L Normal 136-145 [facility] Comment on above: Performed By: #### C VDTBH #### [facility] [address] [place], [place] [address] Dr. Radha Suarez Urea nitrogen [Mass/Vol] 12.0 mg/dL Normal 7.0-18.0 [facility] Comment on above: Performed By: #### C VDTBH #### [facility] [address] [place], [place] [address] Dr. Radha Suarez Urea nitrogen/Creatinine [Mass ratio] 12.9 mg/mg Normal [facility] Comment on above: Performed By: #### C VDTBH #### [facility] [address] [address] [address] Radha Suarez XR CHEST 1 Von [...] NAOMIE VELASQUEZ Date: 2022-02-02 22:36 Normal [facility] Covid-19 PCR (CVDTB)on SARS-CoV-2 (COVID-19) RNA RENÉ+probe Ql (Unsp spec) Not detected Normal NOT DETECTED [facility] Comment on above: Result Comment: When [...] for this test is supported by the [place] of Health and Human Service's declaration that [...] used). Performed By: #### C BC #### [facility] [address] [place] [address] Dr. Radha Suarez BNPon 01-14-2022 Natriuretic peptide B (Bld) [Mass/Vol] 86.0 pg/mL Normal <=900.0 [facility] Comment on above: Performed By: #### B INSURANCE LAW SPECIALIST, CMP #### [facility] [address] [place] [address] Dr. Radha Suarez CBC AUTO DIFFon 01-14-2022 BASO # 0.1 103/ul Normal 0.0-0.1 [facility] Comment on above: Performed By: #### C VDTBH #### [facility] [address] [place] [address] Dr. Radha Suarez Basophils/100 WBC (Bld) 0.6 % Normal 0.2-2.0 [facility] Comment on above: Performed By: #### C VDTBH #### [facility] [address] [place] [address] Dr. Radha Suarez EO # 0.1 103/ul Normal 0.0-0.7 [facility] Comment on above: Performed By: #### C VDTBH #### [facility] [address] [place] [address] Dr. Radha Suarez Eosinophils/100 WBC (Bld) 1.1 % Normal 0.9-7.0 [facility] Comment on above: Performed By: #### C VDTBH #### [facility] [address] [place] [address] Dr. Radha Suarez Erythrocyte distribution width (RBC) [Ratio] 14.6 % Normal 11.0-15.0 [facility] Comment on above: Performed By: #### C VDTBH #### [facility] [address] [address] [address] Radha Suarez Hematocrit (Bld) [Volume fraction] 43.8 % Normal 36.0-48.0 [facility] Comment on above: Performed By: #### C VDTBH #### [facility] [address] [address] [address] Radha Suarez Hemoglobin (Bld) [Mass/Vol] 14.7 g/dL Normal 12.0-16.0 [facility] Comment on above: Performed By: #### C VDTBH #### [facility] [address] [address] [address] Radha Suarez IG # 0.04 10e3/ul Critically high 0.00-0.03 [facility] Comment on above: Performed By: #### C VDTBH #### [facility] [address] [place] [address] Dr. Radha Suarez IG % 0.4 % Normal 0.0-0.5 [facility] Comment on above: Performed By: #### C VDTBH #### [facility] [address] [place] [address] Dr. Radha Suarez LYMPH # 1.7 103/ul Normal 1.2-3.8 [facility] Comment on above: Performed By: #### C VDTBH #### [facility] [address] [place] [address] Dr. Radha Suarez Lymphocytes/100 WBC (Bld) 19.0 % Critically low 20.5-60.0 [facility] Comment on above: Performed By: #### C VDTBH #### [facility] [address] [place] [address] Dr. Radha Suarez MANUAL DIFF REQ NO Normal [facility] Comment on above: Performed By: #### C VDTBH #### [facility] [address] [place] [address] Dr. Radha Suarez MCH (RBC) [Entitic mass] 30.5 pg Normal 26.7-34.0 [facility] Comment on above: Performed By: #### C VDTBH #### [facility] [address] [place] [address] Dr. Radha Suarez MCHC (RBC) [Mass/Vol] 33.6 g/dL Normal 29.9-35.2 [facility] Comment on above: Performed By: #### C VDTBH #### [facility] [address] [place] [address] Dr. Radha Suarez MCV (RBC) [Entitic vol] 90.9 fL Normal 81.0-99.0 [facility] Comment on above: Performed By: #### C VDTBH #### [facility] [address] [place] [address] Dr. Radha Suarez MONO # 0.6 103/ul Normal 0.3-0.8 [facility] Comment on above: Performed By: #### C VDTBH #### [facility] [address] [place] [address] Dr. Radha Suarez Monocytes/100 WBC (Bld) 6.9 % Normal 1.7-12.0 [facility] Comment on above: Performed By: #### C VDTBH #### [facility] [address] [place] [address] Dr. Radha Suarez NEUT # 6.5 103/ul Normal 1.4-6.5 [facility] Comment on above: Performed By: #### C VDTBH #### [facility] [address] [place] [address] Dr. Radha Suarez Neutrophils/100 WBC (Bld) 72.0 % Normal 43.0-75.0 [facility] Comment on above: Performed By: #### C VDTBH #### [facility] [address] [place] [address] Dr. Radha Suarez Platelet mean volume (Bld) [Entitic vol] 8.9 fL Critically low 9.5-13.5 [facility] Comment on above: Performed By: #### C VDTBH #### [facility] [address] [place] [address] Dr. Radha Suarez PLT 324 103/ul Normal 150-450 [facility] Comment on above: Performed By: #### C VDTBH #### [facility] [address] [place] [address] Dr. Radha Suarez RBC 4.82 106/ul Normal 4.20-5.40 [facility] Comment on above: Performed By: #### C VDTBH #### [facility] [address] [place] [address] Dr. Radha Suarez WBC 9.0 103/ul Normal 4.0-11.0 [facility] Comment on above: Performed By: #### C VDTBH #### [facility] [address] [place] [address] Dr. Radha Suarez Covid-19 PCR ([facility])on 12-26 SARS-CoV-2 (COVID-19) RNA RENÉ+probe Ql (Unsp spec) Not detected Normal NOT DETECTED [facility] Comment on above: Result Comment: When [...] for this test is supported by the [place] [employer] of Health and Human Service's declaration that [...] longer be used). Performed By: #### C VDTBH #### [facility] [address] [place] [address] Dr. Radha Suarez PROF 14(COMP METB)on 022 Albumin [Mass/Vol] 3.9 g/dL Normal 3.4-5.0 [facility] Comment on above: Performed By: #### B INSURANCE LAW SPECIALIST, CMP #### [facility] [address] [place] [address] Dr. Radha Suarez Albumin/Globulin [Mass ratio] 1.0 {ratio} Normal [facility] Comment on above: Performed By: #### B INSURANCE LAW SPECIALIST, CMP #### [facility] [address] [place] [address] Dr. Radha Suarez ALP [Catalytic activity/Vol] 96 U/L Normal 46-116 [facility] Comment on above: Performed By: #### B INSURANCE LAW SPECIALIST, CMP #### [facility] [address] [place] [address] Dr. Radha Suarez ALT [Catalytic activity/Vol] 26 U/L Normal 14-59 [facility] Comment on above: Performed By: #### B INSURANCE LAW SPECIALIST, CMP #### [facility] [address] [place] [address] Dr. Radha Suarez Anion gap [Moles/Vol] 13.6 mmol/L Normal [facility] Comment on above: Performed By: #### B INSURANCE LAW SPECIALIST, CMP #### [facility] [address] [place] [address] Dr. Radha Suarez AST [Catalytic activity/Vol] 17 U/L Normal 15-37 [facility] Comment on above: Performed By: #### B INSURANCE LAW SPECIALIST, CMP #### [facility] [address] [place] [address] Dr. Radha Suarez Bilirubin [Mass/Vol] 0.3 mg/dL Normal 0.2-1.0 [facility] Comment on above: Performed By: #### B INSURANCE LAW SPECIALIST, CMP #### [facility] [address] [place] [address] Dr. Radha Suarez Calcium [Mass/Vol] 9.1 mg/dL Normal 8.5-10.1 [facility] Comment on above: Performed By: #### B INSURANCE LAW SPECIALIST, CMP #### [facility] [address] [place] [address] Dr. Radha Suarez Chloride [Moles/Vol] 106 mmol/L Normal 98-107 [facility] Comment on above: Performed By: #### B INSURANCE LAW SPECIALIST, CMP #### [facility] [address] [place] [address] Dr. Radha Suarez CO2 [Moles/Vol] 26.8 mmol/L Normal 21.0-32.0 [facility] Comment on above: Performed By: #### B INSURANCE LAW SPECIALIST, CMP #### [facility] [address] [place] [address] Dr. Radha Suarez Creatinine [Mass/Vol] 0.94 mg/dL Normal 0.55-1.02 [facility] Comment on above: Performed By: #### B INSURANCE LAW SPECIALIST, CMP #### [facility] [address] [place] [address] Dr. Radha Suarez EGFR-AF MALAGASY >60 Normal >=60 [facility] Comment on above: Performed By: #### B INSURANCE LAW SPECIALIST, CMP #### [facility] [address] [place] [address] Dr. Radha Suarez EGFR-NON AF MALAGASY >60 Normal >=60 [facility] Comment on above: Performed By: #### B INSURANCE LAW SPECIALIST, CMP #### [facility] [address] [place] [address] Dr. Radha Suarez Globulin (S) [Mass/Vol] 4.1 g/dL Normal [facility] Comment on above: Performed By: #### B INSURANCE LAW SPECIALIST, CMP #### [facility] [address] [place] [address] Dr. Radha Suarez Glucose [Mass/Vol] 115 mg/dL Critically high 74-106 [facility] Comment on above: Performed By: #### B INSURANCE LAW SPECIALIST, CMP #### [facility] [address] [place] [address] Dr. Radha Suarez Potassium [Moles/Vol] 3.4 mmol/L Critically low 3.5-5.1 [facility] Comment on above: Performed By: #### B INSURANCE LAW SPECIALIST, CMP #### [facility] [address] [place] [address] Dr. Radha Suarez Protein [Mass/Vol] 8.0 g/dL Normal 6.4-8.2 [facility] Comment on above: Performed By: #### B INSURANCE LAW SPECIALIST, CMP #### [facility] [address] [place] [address] Dr. Radha Suarez Sodium [Moles/Vol] 143 mmol/L Normal 136-145 [facility] Comment on above: Performed By: #### B INSURANCE LAW SPECIALIST, CMP #### [facility] [address] [place] [address] Dr. Radha Suarez Urea nitrogen [Mass/Vol] 13.0 mg/dL Normal 7.0-18.0 [facility] Comment on above: Performed By: #### B INSURANCE LAW SPECIALIST, CMP #### [facility] [address] [place] [address] Dr. Radha Suarez Urea nitrogen/Creatinine [Mass ratio] 13.8 mg/mg Normal [facility] Comment on above: Performed By: #### B INSURANCE LAW SPECIALIST, CMP #### [facility] [address] [place] [address] Dr. Radha Suarez XR CHEST 1 Von [...] ZIA DESAI Date: 2022-01-14 20:21 Normal [facility] CBC AUTO DIFFon 01-13-2022 BASO # 0.0 103/ul Normal 0.0-0.1 [facility] Comment on above: Performed By: #### C VDTB #### [facility] [address] [place] [address] Dr. Radha Suarez Basophils/100 WBC (Bld) 0.5 % Normal 0.2-2.0 [facility] Comment on above: Performed By: #### C VDTBH #### [facility] [address] [place] [address] Dr. Radha Suarez EO # 0.1 103/ul Normal 0.0-0.7 [facility] Comment on above: Performed By: #### C VDTBH #### [facility] [address] [place] [address] Dr. Radha Suarez Eosinophils/100 WBC (Bld) 1.0 % Normal 0.9-7.0 [facility] Comment on above: Performed By: #### C VDTBH #### [facility] [address] [place] [address] Dr. Radha Suarez Erythrocyte distribution width (RBC) [Ratio] 14.6 % Normal 11.0-15.0 [facility] Comment on above: Performed By: #### C VDTBH #### [facility] [address] [place] [address] Dr. Radha Suarez Hematocrit (Bld) [Volume fraction] 42.3 % Normal 36.0-48.0 [facility] Comment on above: Performed By: #### C VDTBH #### [facility] [address] [place] [address] Dr. Radha Suarez Hemoglobin (Bld) [Mass/Vol] 13.7 g/dL Normal 12.0-16.0 [facility] Comment on above: Performed By: #### C VDTBH #### [facility] [address] [place] [address] Dr. Radha Suarez IG # 0.04 10e3/ul Critically high 0.00-0.03 [facility] Comment on above: Performed By: #### C VDTBH #### [facility] [address] [place] [address] Dr. Radha Suarez IG % 0.5 % Normal 0.0-0.5 [facility] Comment on above: Performed By: #### C VDTBH #### [facility] [address] [place] [address] Dr. Radha Suarez LYMPH # 1.8 103/ul Normal 1.2-3.8 [facility] Comment on above: Performed By: #### C VDTBH #### [facility] [address] [place] [address] Dr. Radha Suarez Lymphocytes/100 WBC (Bld) 21.4 % Normal 20.5-60.0 [facility] Comment on above: Performed By: #### C VDTBH #### [facility] [address] [place] [address] Dr. Radha Suarez MANUAL DIFF REQ NO Normal [facility] Comment on above: Performed By: #### C VDTBH #### [facility] [address] [place] [address] Dr. Radha Suarez MCH (RBC) [Entitic mass] 30.0 pg Normal 26.7-34.0 [facility] Comment on above: Performed By: #### C VDTBH #### [facility] [address] [place] [address] Dr. Radha Suarez MCHC (RBC) [Mass/Vol] 32.4 g/dL Normal 29.9-35.2 [facility] Comment on above: Performed By: #### C VDTBH #### [facility] [address] [place] [address] Dr. Radha Suarez MCV (RBC) [Entitic vol] 92.8 fL Normal 81.0-99.0 [facility] Comment on above: Performed By: #### C VDTBH #### [facility] [address] [place] [address] Dr. Radha Suarez MONO # 0.7 103/ul Normal 0.3-0.8 [facility] Comment on above: Performed By: #### C VDTBH #### [facility] [address] [place] [address] Dr. Radha Suarez Monocytes/100 WBC (Bld) 7.9 % Normal 1.7-12.0 [facility] Comment on above: Performed By: #### C VDTBH #### [facility] [address] [place] [address] Dr. Radha uSarez NEUT # 5.6 103/ul Normal 1.4-6.5 [facility] Comment on above: Performed By: #### C VDTBH #### [facility] [address] [place] [address] Dr. Radha Suarez Neutrophils/100 WBC (Bld) 68.7 % Normal 43.0-75.0 [facility] Comment on above: Performed By: #### C VDTBH #### [facility] [address] [address] [address] Radha Suarez Platelet mean volume (Bld) [Entitic vol] 9.5 fL Normal 9.5-13.5 [facility] Comment on above: Performed By: #### C VDTBH #### [facility] [address] [address] [address] Radha Suarez PLT 321 103/ul Normal 150-450 [facility] Comment on above: Performed By: #### C VDTBH #### [facility] [address] [address] [address] Radha Suarez RBC 4.56 106/ul Normal 4.20-5.40 [facility] Comment on above: Performed By: #### C VDTBH #### [facility] [address] [place] [address] Dr. Radha Suarez WBC 8.2 103/ul Normal 4.0-11.0 [facility] Comment on above: Performed By: #### C VDTBH #### [facility] [address] [address] [address] Radha Suarez FREE T3on 01-13-2022 FREE T3 1.99 pg/mlL Critically low 2.18-3.98 [facility] Comment on above: Performed By: #### C #### [facility] [address] [place] [address] Dr. Radha Suarez FREE T4on 01-13-2022 Free T4 [Mass/Vol] 1.02 ng/dL Normal 0.76-1.46 [facility] Comment on above: Performed By: #### C VDTBH #### [facility] [address] [address] [address] Radha Suarez MRI LUMBAR SPINE WO IVCONon 01-13-2022 MRI LUMBAR SPINE WO IVCON * * *Final Report* * * DATE OF EXAM: Jan 13 2022 2:53PM [facility] 0303 - MRI LUMBAR SPINE WO [...] crest and there are 5 lumbar-type vertebrae. Dealer Accounts Investigator: SAVAGE Transcribe Date/Time: Jan 13 2022 3:43P Dictated by : KIERAN MONTOYA MD This examination was interpreted and the report reviewed and electronically signed by: KIERAN MONTOYA MD on Jan 13 2022 3:50PM EST [id number] CN Normal [facility] MRI THORACIC SPINE WO IVCONo n 01-13-2022 MRI THORACIC SPINE WO IVCON * * *Final Report* * * DATE OF EXAM: Jan 13 2022 2:53PM [facility] 0325 - MRI THORACIC SPINE WO [...] crest and there are 5 lumbar-type vertebrae. Dealer Accounts Investigator[facility] Transcribe Date/Time: Jan 13 2022 3:43P Dictated by : KIERAN MONTOYA MD This examination was interpreted and the report reviewed and electronically signed by: KIERAN MONTOYA MD on Jan 13 2022 3:50PM EST [id number] CN Normal [facility] No Panel Informationon 01-13 [facility] PROF CHEM 8 (BAS METB)on Anion gap [Moles/Vol] 11.3 mmol/L Normal [facility] Comment on above: Performed By: #### C BC #### [facility] [address] [place], [place] [address] Dr. Radha Suarez Calcium [Mass/Vol] 9.5 mg/dL Normal 8.5-10.1 [facility] Comment on above: Performed By: #### C BC #### [facility] [address] [place], [place] [address] Dr. Radha Suarez Chloride [Moles/Vol] 105 mmol/L Normal 98-107 [facility] Comment on above: Performed By: #### C BC #### [facility] [address] [address] [address] Radha Suarez CO2 [Moles/Vol] 28.2 mmol/L Normal 21.0-32.0 [facility] Comment on above: Performed By: #### C BC #### [facility] [address] [address] [address] Radha Suarez Creatinine [Mass/Vol] 0.86 mg/dL Normal 0.55-1.02 [facility] Comment on above: Performed By: #### C BC #### [facility] [address] [address] [address] Radha Suarez EGFR-AF MALAGASY >60 Normal >=60 [facility] Comment on above: Performed By: #### C BC #### [facility] [address] [address] [address] Radha Suarez EGFR-NON AF MALAGASY >60 Normal >=60 [facility] Comment on above: Performed By: #### C BC #### [facility] [address] [address] [address] Radha Suarez Glucose [Mass/Vol] 99 mg/dL Normal 74-106 [facility] Comment on above: Performed By: #### C BC #### [facility] [address] [address] [address] Radha Suarez Potassium [Moles/Vol] 3.5 mmol/L Normal 3.5-5.1 [facility] Comment on above: Performed By: #### C BC #### [facility] [address] [address] [address] Radha Suarez Sodium [Moles/Vol] 141 mmol/L Normal 136-145 [facility] Comment on above: Performed By: #### C BC #### [facility] [address] [place] [address] Dr. Radha Suarez Urea nitrogen [Mass/Vol] 15.0 mg/dL Normal 7.0-18.0 [facility] Comment on above: Performed By: #### C BC #### [facility] [address] [address] [address] Radha Suarez Urea nitrogen/Creatinine [Mass ratio] 17.4 mg/mg Normal [facility] Comment on above: Performed By: #### C BC #### [facility] [address] [address] [address] Radha Suarez TSHon 01-13-2022 TSH 5.692 uIU/mL Critically high 0.358-3.740 [facility] Comment on above: Performed By: #### C BC #### [facility] [address] [address] [address] Radha Suarez C-REACTIVE PROTEIN (CRP)on 0 12-04-2021 CRP [Mass/Vol] 0.9 mg/dL High <0.9 mg/dL [facility] ESR Westergren method (Bld) [Velocity]on 12-04-2021 ESR (Bld) [Velocity] 17 mm/h 0 - 20 mm/hr [facility] HbA1c (Bld)on 12-04-2021 Average glucose Estimated from glycated hemoglobin (Bld) [Mass/Vol] 111 mg/dL [facility] HbA1c (Bld) [Mass fraction] 5.5 % 4.3 - 5.6 % [facility] CNOVon 12-03-2021 CNOV Office Visit (PAINLN) HANNATO ([id number]) 1970 F Date Time Provider Department 12/03/21 [...] supervised home exercise program (HEP): No 5. Spd Tech: No Passive conservative therapy lasting 6 weeks in the last six months (see below) 1. Medical devises: No 2. Acupuncture: No 3. Tens unit: No 4. Prescription pain medication: No 5. 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 EXAMINATION: OJKNSPTT-LNXICGY-ROO TERIOR: Scoliosis: No Pelvic Tilt: No Leg [...] sounds no (more content not included)... Normal [facility] CRP SerPl-mCncon 12-03-2021 CRP [Mass/Vol] 0.9 mg/dL High <0.9 [facility] Comment on above: Order Comment: Speci men Type: BLOOD SPECIMEN Ordering Facility: [facility] Address: [address] [place] [address] Performed By: #### 1 988-5 #### [facility] CLIA [id number] [address] [place] [address] OF [facility] ESR Westergren method (Bld) [Velocity]on 12-03-2021 ESR (Bld) [Velocity] 17 mm/h Normal 0-20 [facility] Comment on above: Order Comment: Speci men Type: BLOOD SPECIMEN Ordering Facility: [facility] Address: [address] [place] [address] Performed By: #### 4 537-7 #### [facility] CLIA [id number] [address] [place] [address] [place] HGB A1Con 12-03-2021 Average glucose Estimated from glycated hemoglobin (Bld) [Mass/Vol] 111 mg/dL Normal [facility] Comment on above: Order Comment: Speci men Type: BLOOD SPECIMEN Ordering Facility: [facility] Address: [address] [place] [address] Result Comment: eAG: (Estimated average glucose) is a calculated value from HgbA1c and is safety representative of the average blood glucose level in the last 2-3 month period. Performed By: #### H BA1C #### [facility] CLIA [id number] [address] [place] [address] HbA1c (Bld) [Mass fraction] 5.5 % Normal 4.3-5.6 [facility] Comment on above: Order Comment: Speci men Type: BLOOD SPECIMEN Ordering Facility: [facility] Address: [address] [place] [address] Result Comment: Amer ican Diabetes Association guidelines indicate that patients with HgbA1c in the range 5.7-6.4% are at increased risk for development of diabetes, and intervention by lifestyle modification may be beneficial. HgbA1c greater or equal to 6.5% is considered diagnostic of diabetes. Performed By: #### H BA1C #### [facility] CLIA [id number] [address] [facility] [place] [address] [address] [facility] No Panel Informationon 12-03 [facility] XR LUMBAR 3V AP/LAT/L5-S1on 12-03-2021 XR [...] subluxation at L4-5 with facet degenerative changes Dealer Accounts Investigator: PSCB Transcribe Date/Time: Dec 04 2021 8:19P Dictated by : PARMJIT PIMENTEL MD This examination was interpreted and the report reviewed and electronically signed by: PARMJIT PIMENTEL MD on Dec 04 2021 8:20PM EST [id number] CN Normal [facility] CNPNon 12-02-2021 CNPN Telephone (PAINLN) NATO SHORT ([id number]) 1970 F Date Time Provider Department 12/02/21 LAZARUS JOHNSON During your visit today, we recorded the following information about you: Keren Rosales MA 12/02/2021 1:49 PM Signed Patient was advised of the following: This is a follow up phone call regarding your appointment with Dr Johnson, which you are scheduled to see at [facility] on 12/03/2021 1) Have you been [...] need to reschedule please call us at [phone]. Left VM with new patient policy advised [...] Status:Closed by KEREN ROSALES on 12/02/21 Normal [facility] XR FOOT LT MIN 3 VIEWSon [...] by: NAOMIE VELASQUEZ Date: 2021-11-12 21:[address] [facility] XR CHEST 2 Von 07-24-2021 SARS-CoV-2 [...] by: NAOMIE VELASQUEZ Date: 2021-07-23 22:[address] [facility] Consent for Treatmenton Consent for Treatment [id number] #1.00CD:127 Normal [facility] Registrationon 03-05-2020 Registration [id number] #1.00CD:127 Normal [facility] Consenton 02-29-2020 Consent [id number] 19#1.00CD:127 [facility] Vital Signs Date Time Vital Sign Value Performing Clinician Viola faith 03-28-2024 17:03-0400 Body height 151.8 cm Whit Sorensen NP Work Phone: [facility] 03-28-2024 17:03-0400 Body mass index (BMI) [Ratio] 43.09 kg/m2 Whit Ricomanjit INSURANCE LAW SPECIALIST Work Phone: [facility] 03-28-2024 17:03-0400 Body temperature 98.49 [degF] Whit Ricoalissonz INSURANCE LAW SPECIALIST Work Phone: [facility] 03-28-2024 17:03-0400 Body weight 99.25 kg Whit Ricoalissonz INSURANCE LAW SPECIALIST Work Phone: [facility] 03-28-2024 17:03-0400 Diastolic blood pressure 94 mm[Hg] Whit Trishaalissonz INSURANCE LAW SPECIALIST Work Phone: [facility] 03-28-2024 17:03-0400 Heart rate 89 /min Whit Trishaalissonz INSURANCE LAW SPECIALIST Work Phone: [facility] 03-28-2024 17:03-0400 Respiratory rate 19 /min Whit Trishamanjit INSURANCE LAW SPECIALIST Work Phone: [facility] 03-28-2024 17:03-0400 SaO2% (BldA) [Mass fraction] 96 % Whit Trishaalissonz INSURANCE LAW SPECIALIST Work Phone: [facility] 03-28-2024 17:03-0400 Systolic blood pressure 140 mm[Hg] Whit Trishamanjit INSURANCE LAW SPECIALIST Work Phone: [facility] 12-03-2021 15:14-0400 Body height 152.4 cm Lazarus Johnson MD Work Phone: [facility] 12-03-2021 15:14-0400 Heart rate 85 /min Lazarus Johnson MD Work Phone: [facility] 12-03-2021 15:14-0400 SaO2% (BldA) [Mass fraction] 96 % Lazarus Johnson MD Work Phone: [facility] Encounters Encounter Date Encounter Type Care Provider Facility Start: 05-28-2024 End: 05-28-2024 Refill Whit Franchesca INSURANCE LAW SPECIALIST Work Phone: [facility] Comment on above: Muscle spasm (Primar y Dx) Start: 05-11-2024 End: 05-11-2024 Refill Whit Demarz INSURANCE LAW SPECIALIST Work Phone: [facility] Comment on above: Hypothyroidism (acqu ired) ([facility]) Start: 05-10-2024 End: 05-10-2024 Clinisync Result Encounter Whitrosey Sorensen INSURANCE LAW SPECIALIST Work Phone: [facility] External Department Unsolicited Start: 05-10-2024 End: 05-10-2024 Clinisync Result Encounter Whit Franchesca INSURANCE LAW SPECIALIST Work Phone: [facility] External Department Unsolicited Start: 05-09-2024 End: 05-09-2024 Orders Only Whit Franchesca INSURANCE LAW SPECIALIST Work Phone: [facility] Comment on above: Cervical radiculopat hy (Primary Dx); Cervical myelopathy ([facility]) Start: 05-04-2024 End: 05-04-2024 Refill Whit Aichholz INSURANCE LAW SPECIALIST Work Phone: [facility] Comment on above: Gastroesophageal ref lux disease, unspecified whether esophagitis present Start: 04-12-2024 End: 04-12-2024 Refill Whit Aichholz INSURANCE LAW SPECIALIST Work Phone: [facility] Comment on above: Oral thrush (Primary Dx) Start: 03-28-2024 End: 03-28-2024 Periodic preventive med est patient 40-64yrs Whit Franchesca INSURANCE LAW SPECIALIST Work Phone: [facility] Comment on above: Encounter for annual wellness visit (Primary Dx); Migraine with aura and without status migrainosus, not intractable ([facility]); Primary insomnia; Pre-operative clearance; Elevated blood pressure, situational; Morbid obesity due to excess calories ([facility]); Current smoker Start: 03-28-2024 End: 03-28-2024 ambulatory WHIT AICHHOLZ Not Available Start: 03-28-2024 End: 03-28-2024 Bamboo flowsheet Whit Aichholz INSURANCE LAW SPECIALIST Work Phone: [facility] Start: 03-28-2024 End: 03-28-2024 Bamboo flowsheet Whit Aichholz INSURANCE LAW SPECIALIST Work Phone: [facility] Start: 03-28-2024 End: 03-28-2024 Patient encounter procedure Whit Aichholz INSURANCE LAW SPECIALIST Work Phone: [facility] Start: 03-28-2024 End: 03-28-2024 Preoperative state Whit Aichholz INSURANCE LAW SPECIALIST Work Phone: [facility] Start: 03-26-2024 End: 03-26-2024 ambulatory WHIT AICHHOLZ Not Available Start: 03-09-2024 End: 03-09-2024 ambulatory [facility] Start: 03-08-2024 End: 03-08-2024 ambulatory WHIT AICHHOLZ Not Available Start: 02-22-2024 End: 02-22-2024 ambulatory CAMPBELL NORTHEIM Not Available Start: 01-16-2024 End: 01-16-2024 ambulatory WHIT AICHHOLZ Not Available Start: 01-05-2024 End: 01-05-2024 ambulatory WHIT AICHHOLZ Not Available Start: 12-12-2023 End: 12-12-2023 ambulatory WHIT AICHHOLZ Not Available Start: 09-05-2023 End: 09-05-2023 ambulatory WHIT AICHHOLZ Not Available Start: 05-24-2023 End: 05-24-2023 ambulatory WHIT AICHHOLZ Not Available Start: 02-10-2023 End: 02-13-2023 ambulatory HWIT Charline MERCEDESHMANJIT [facility] l Start: 07-15-2022 End: 07-15-2022 ambulatory CREDIT COLLECTOR WHIT AICHHOLZ Facility:[facility]1 Start: 05-30-2022 End: 05-30-[address] MEY FARNSWORTH Facility:[facility] Start: 04-21-2022 Encounter for other preprocedural examination CREDIT COLLECTOR WHIT AICHMANJIT [facility] Start: 04-20-2022 ambulatory CREDIT COLLECTOR WHIT AICHHOLZ Facil ity:H1 Start: 04-16-2022 End: 04-17-2022 ambulatory NATACHA SORENSEN Facility:[facility] Start: 04-16-2022 End: 04-17-2022 Encounter for other preprocedural examination NATACHA SORENSEN Facility:[facility] Start: 03-08-2022 End: 03-09-2022 ambulatory NATACHA SORENSEN Facility:[facility] Start: 02-22-2022 MC Get Medical Advice Lazarus Johnson MD Work [...] Mobic Start: 01-14-2022 End: 01-14-2022 ambulatory NATACHA SORENSEN Facility:[facility] Start: 01-13-2022 End: 01-14-2022 ambulatory Lazarus Johnson MD Work Phone: Pain Management Comment on above: MRI and pain managem ent Start: 01-13-2022 End: 01-13-2022 Subsequent hospital visit by physician Mri [facility] (Lg Bore/1.5t) Radiology MRI Comment on above: Radiculopathy of lum bar region [M54.16] Start: 12-29-2021 ambulatory Lazarus spain MD Work Phone: Pain Management Comment on above: Pain Start: 12-22-2021 ambulatory Lazarus spain MD Work Phone: Pain Management Comment on above: Question regarding C -REACTIVE PROTEIN (CRP) Start: 12-21-2021 ambulatory Cash Diaz RT(R) Radiology Comment on above: Radiology MRI Start: 12-21-2021 Patient encounter procedure Wi juaquin Kang RT(R) ORTH AURELIANO Start: 12-11-2021 ambulatory NATACHA SORENSEN Facil ity:H1 Start: 12-03-2021 End: 12-03-2021 Subsequent hospital visit by physician John [facility] Radiology Comment on above: Radiculopathy of lum [...] ma naglambert) Start: 11-19-2021 End: 11-20-2021 ambulatory CREDIT COLLECTOR WHIT SORENSEN Facility:[facility] Start: 11-12-2021 End: 11-13-2021 ambulatory CREDIT COLLECTOR WHIT SORENSEN Facility:[facility] Start: 07-23-2021 End: 07-24-2021 ambulatory NATACHA SORENSEN Facility:[facility] Procedures Date Procedure Procedure Detail Performing Clinician Start: 05-10-2024 ALL THYROID STIM HORMONE Whit Franchesca INSURANCE LAW SPECIALIST Work Phone: Start: 05-10-2024 ALL THYROXINE (T4) FREE Whit Demarz INSURANCE LAW SPECIALIST Work Phone: Start: 01-13-2022 Mri spinal canal tho racic w/o contrast matrl Lazarus Johnson MD Work Phone: Start: 12-03-2021 Radex spine lumbosac ral 2/3 views Lazarus Johnson MD Work Phone: Start: 08-09-2018 Colonoscopy Whit lake INSURANCE LAW SPECIALIST Work Phone: Plan of Treatment Date Care Activity Detail Author Start: 08-09-2028 Screening for malign ant neoplasm of colon [facility] Start: 12-03-2024 DIABETES SCREEN DIABETES SCREEN [facility] Start: 12-03-2024 Diabetes Screening Diabetes Screentiffanie g [facility] Start: 07-21-2024 End: 05-11-2025 Thyroxine (T4) free [Mass/volume] in Serum or Plasma T4, free Lab Routine Hypothyroidism (acquired) ([facility]) Expected: 07/21/2024 (Approximate), Expires: 05/11/2025 [facility] Comment on above: Expected: 07/21/2024 (Approximate), Expires: 05/11/2025 Start: 07-11-2024 End: 05-11-2025 Thyrotropin [Units/volume] in Serum or Plasma TSH Lab Routine Hypothyroidism (acquired) ([facility]) Expected: 07/11/2024 (Approximate), Expires: 05/11/2025 [facility] Work Phone: Comment on above: Expected: 07/11/2024 (Approximate), Expires: 05/11/2025 Start: 05-02-2024 End: 05-02-2024 Patient encounter procedure 05/02/2024 4:30 PM EST Office Visit [facility] [address] [place] [id number] Whit Sorensen, NUNU [address] [place] [phone] [facility] Start: 03-28-2024 End: 03-28-2024 Patient encounter procedure 03/28/2024 5:00 PM EDT [facility] [address] [place] [id number] Whit Sorensen, INSURANCE LAW SPECIALIST [address] [place] [id number] Arrived [facility] Comment on above: Arrived Start: 03-28-2024 End: 03-28-2025 Basic metabolic 1998 panel - Serum or Plasma Basic metabolic panel Lab Routine Pre-operative clearance Expected: 03/28/2024 (Approximate), Expires: 03/28/2025 [facility] Comment on above: Expected: 03/28/2024 (Approximate), Expires: 03/28/2025 Start: 03-28-2024 End: 03-28-2025 CBC W Auto Differential panel - Blood CBC and differential Lab Routine Pre-operative clearance Expected: 03/28/2024 (Approximate), Expires: 03/28/2025 [facility] Work Phone: Comment on above: Expected: 03/28/2024 (Approximate), Expires: 03/28/2025 Start: 03-28-2024 End: 03-28-2025 ECG 12 lead ECG 12 lead ECG Routine Pre-operative clearance Expected: 03/28/2024 (Approximate), Expires: 03/28/2025 [facility] Comment on above: Expected: 03/28/2024 (Approximate), Expires: 03/28/2025 Start: 02-25-2023 Influenza vaccination [facility] Start: 06-27-2022 DEPRESSION ASSESSMENT DEPRESSION ASS ESSMENT [facility] Start: 02-25-2022 Influenza vaccination C [facility] Start: 01-26-2022 End: 03-28-2022 Basic metabolic 2000 panel - Serum or Plasma BASIC METABOLIC PNL Lab Routine Lumbar disc herniation Radiculopathy of lumbar region Expected: 01/26/2022, Expires: 03/28/2022 [facility] Work Phone: Comment on above: Expected: 01/26/2022 , Expires: 03/28/2022 Start: 2020 SHINGRIX VACCINE (1 of 2) SHINGRIX VACCINE (1 of 2) [facility] Start: 2015 COLOGUARD (FIT-DNA) COLOGUARD (FIT-D NA) [facility] Start: 2015 Colonoscopy COLONOSCOPY [facility] Start: 2015 COLORECTAL CANCER SCREENING COLORECTAL CANCER SCREENING [facility] Start: [address] COLONOGRAPHY [facility] Start: 2015 DIABETES SCREEN DIABETES SCREEN [facility] Start: 2015 FECAL OCCULT BLOOD FECAL OCCULT BLOO D [facility] Start: 2015 Lipid 1996 panel - Serum or Plasma Lipid Screening [facility] Start: 2015 LIPID SCREEN LIPID SCREEN [facility] Start: 2015 SIGMOIDOSCOPY SIGMOIDOSCOPY [facility] Start: 2010 Mammography [facility] Start: 2010 Screening for malign ant neoplasm of breast Mammogram [facility] Start: 2000 HPV TESTING HPV TESTING [facility] Start: 2000 Screening for malign ant neoplasm of cervix HPV/Cotest [facility] Start: 1991 PAP TESTING PAP TESTING [facility] Start: 1991 Screening for malign ant neoplasm of cervix Pap Smear [facility] Start: 1989 Urine microalbumin profile [facility] Start: 1988 HEPATITIS C SCREENING HEPATITIS C SC REENING [facility] Start: 1988 HIV SCREENING HIV SCREENING [facility] Start: 1982 Adult depression screening assessment DEPRESSION SCREENING [facility] Start: 1976 PNEUMOCOCCAL (1 - PCV) PNEUMOCOCCAL (1 - PCV) [facility] Start: 1976 Pneumococcal vaccination Pneumococcal Vaccine (1 - PCV) [facility] Start: 1975 COVID-19 VACCINE (#1) COVID-19 VACCI NE (#1) [facility] Start: 02-18-1971 COVID-19 VACCINE (#1) COVID-19 VACCI NE (#1) [facility] Start: 1970 HEPATITIS B (1 of 3 - 3-dose series) HEPATITIS B (1 of 3 - 3-dose series) [facility] Start: 1970 Hepatitis B Vaccine (1 of 3 - 3-dose series) Hepatitis B Vaccine (1 of 3 - 3-dose series) [facility] Start: 1970 Screening for malign ant neoplasm of colon [facility] End: 01-02-2023 Mri spinal canal lumbar w/o contrast material MRI LUMBAR SPINE WO IVCON Radiology Routine Radiculopathy of lumbar region 1 Occurrences starting 12/03/2021 until 01/02/2023 [facility] Work Phone: Comment on above: 1 Occurrences starti ng 12/03/2021 until 01/02/2023 End: 01-02-2023 Mri spinal canal thoracic w/o contrast matrl MRI THORACIC SPINE WO IVCON Radiology Routine Radiculopathy of lumbar region 1 Occurrences starting 12/03/2021 until 01/02/2023 [facility] Work Phone: Comment on above: 1 Occurrences starti ng 12/03/2021 until 01/02/2023 [facility] Immunizations Immunization Date Immunization Notes Care Provider [facility] 04-24-2009 novel influenza-H1N1 -09, preservative-free, injectable Whit Sorensen INSURANCE LAW SPECIALIST Work Phone: [facility] 04-24-2009 influenza virus vacc ine, unspecified formulation Mri Bore/1.5t) [facility] Payers Date Payer Category Payer Private Health Insurance [id number] 2023 Private Health Insurance [id number] 2021 Unknown [employer] CARD PPO OOS [id number] 2021-Present [phone] [address] [place] [address] PPO [id number] 2021 Unknown [employer] CARD PPO OOS [id number] 2021-Present [phone] [address] [place] [address] PPO [id number] 2020 Medicaid [employer] MEDICAID [id number] 2020-Present [phone] [address] [place] [address] Medicaid [id number] 2020 Medicaid [id number] 1970 Unknown [id number] 2.16.840.1.633944.3.579.2. 593 1970 Unknown [id number] 2.16.840.1.257932.3.579.2. 593 1970 Unknown [id number] 2.16.840.1.859135.3.579.2. 593 1970 Unknown [id number] 2.16.840.1.295884.3.579.2. 593 1970 Unknown [id number] 2.16840.1.287679.3.579.2. 593 1970 Unknown [id number] 2.16840.1.986337.3.579.2. 593 1970 Unknown [id number] 2.16840.1.890710.3.579.2. 593 1970 Unknown [id number] 2.16840.1.743532.3.579.2. 593 1970 Unknown [id number] 2.16840.1.995557.3.579.2. 593 1970 Unknown [id number] 2.16.840.1.542021.3.579.2. 593 1970 Unknown [id number] 2.16.840.1.433549.3.579.2. 593 1970 Unknown [id number] 2.16.840.1.479429.3.579.2. 593 1970 Unknown [id number] 2.16.840.1.822646.3.579.2. 593 1970 Unknown [id number] 2.16.840.1.210510.3.579.2. 173 1970 Unknown [id number] 2.16.840.1.684961.3.579.2. 1259 1970 Unknown [id number] 2.16.840.1.067358.3.579.2. 9 1970 Unknown [id number] 2.16.840.1.857814.3.579.2. 9 1970 Unknown [id number] 2.16.840.1.419423.3.579.2. 1258 1970 Unknown [id number] 2.16.840.1.927926.3.579.2. 1258 1970 Unknown [id number] 2.16.840.1.003825.3.579.2. 1258 1970 Unknown [id number] 2.16.840.1.235974.3.579.2. 9 1970 Unknown [id number] 2.16.840.1.623517.3.579.2. 1258 1970 Unknown [id number] 2.16.840.1.052088.3.579.2. 9 1959 Self-pay [id number] 1959 Unknown [id number] 1959 Unknown [id number] 1959 Unknown [id number] Unknown [id number] Social History Date Type Detail Facility Tobacco smoking stat [facility] Tobacco smoking consumption unknown [facility] Start: 1970 Sex Assigned At Female C [facility] Start: 06-27-1989 End: 06-26-2023 Tobacco smoking status [facility] Smokes tobacco daily [facility] Start: 12-03-2021 Tobacco use and exposure User of smo keless tobacco [facility] Start: 12-03-2021 Alcohol intake Lifetime non-d mar (finding) [facility] Start: 12-03-2021 History SDOH Alcohol Frequency 1 [facility] Start: 11-23-2021 End: 12-03-2021 Exposure to SARS-CoV-2 (event) Unable to assess [facility] Start: 12-12-2021 End: 02-02-2022 Exposure to SARS-CoV-2 (event) Not sure [facility] Start: 12-03-2021 End: 05-24-2023 History of Social function [facility] Start: 12-03-2021 End: 05-24-2023 Tobacco use panel [facility] National Score (1-10 0), lower number is lower risk 60 [facility] Start: 10-30-2021 Gender identity Identifies as female gender (finding) [facility] Start: 06-27-1989 History of tobacco use [...] the original note were not included. Nato Short is a 53 y.o. female presents with [...] Oral, Daily, Discontinue the 30mg script HYDROcodone-acetaminophen ([place]) 5-325 MG tablet 1 tablet, Oral, Every [...] Left breast lump 09/05/2023 Migraine with aura (CMS/[facility]) 09/05/2023 Migraine with aura, without mention of intractable migraine without mention of status migrainosus Simple endometrial hyperplasia without atypia Spinal stenosis, lumbar 09/05/2023 Tenosynovitis, de Quervain 09/05/2023 Tongue abnormality Past Surgical History: Procedure Laterality Date ADENOIDECTOMY 1975 CT GUIDED TRANSVAGINAL TRANSRECTAL FLUID DRAIN 03/10/2023 CT GUIDED TRANSVAGINAL TRANSRECTAL FLUID DRAIN 03/10/2023 DILATION AND CURETTAGE 1989 HERNIA REPAIR 1990 HYSTERECTOMY 2001 VAGINAL LUMBAR EPIDURAL INJECTION 2016 LUMBAR EPIDURAL INJECTION 2017 OVARIAN CYST REMOVAL 1994 TONSILLECTOMY 1976 TUBAL LIGATION Bilateral 2000 URETHRA DILATION Bladder Function and dilation of urethra, Dr Hearn, [facility] family history includes Autism in her grandson; [...] yearly and prn documented in this encounter [facility] 03-28-2024 Instructions Whit Sorensen NP - 03/28/2024 5:00 PM EDT Start taking trazodone 50mg once at night for 5 days, then every other night for 5 doses, then start elavil (amitriptyline) 10mg dose at bedtime documented in this encounter [facility] 03-09-2024 Note Chief Complaint: nec k [...] (six) hours if needed., Disp: , Rfl: iaoqnbmsec-djbvqhaqwfrix-ldum 50-325-40 mg tablet, Take 1 tablet by [...] and Sexual Activity (more content not included)... [facility] 04-16-2022 Note EXAMINATION: XR CHES T 2 [...] authenticated by: NAOMIE THEODORE Date: 2022-04-16 09:47 [facility] 02-24-2022 Miscellaneous Notes Initial Office Visit [...] Jane Carpenter Ma documented in this encounter [facility] 02-12-2022 Miscellaneous Notes XR and MRI results were sent to patient's mailing address. documented in this encounter [facility] 02-02-2022 Miscellaneous Notes Called patient, verified [...] will have my daughter take me to [facility] ER and call you tomorrow with an update. Can we call patient and get current description of her pain. The purpose of trial of LESI is to see if this would improve her current pain symptoms Yasmeen Azul APRN.CNP documented in this encounter [facility] 02-02-2022 Miscellaneous Notes Called patient, left [...] in the ED. documented in this encounter [facility] 01-27-2022 Miscellaneous Notes Order was faxed and received confirmation. For patient to continue Mobic recommend check BMP prior to refilling it Yasmeen Azul APRN.CREDIT COLLECTOR documented in this encounter [facility] 01-14-2022 Miscellaneous Notes Please schedule a [...] January 14, 2022 documented in this encounter [facility] 01-13-2022 Note HNO ID: [id number] Author: Salbador Palacios, light out examiner Service: Radiology Author Type: Apiculturist Type: Progress Notes Filed: 01/13/2022 2:51 PM [...] DATA: Not applicable SIGNED BY: Salbador Palacios Ping4 January 13, 2022 2:50 PM [facility] 01-13-2022 History of Presen t illness [...] DATA: Not applicable SIGNED BY: Salbador Palacios Ping4 January 13, 2022 2:50 PM documented in this encounter [facility] 12-29-2021 Miscellaneous Notes PLAN: initial OV [...] Lazarus Johnson MD documented in this encounter [facility] 12-21-2021 Note HNO ID: [id number] Author: RT Adele(R) Service: ? Author Type: Technologist Type: Progress [...] 21, 2021 TIME: 1:20 PM PAGER/CONTACT #: [facility] 12-21-2021 History of Presen t illness Narrative RADIOLOGY SERVICE PROGRESS NOTE DATE OF SERVICE: December 21, 2021 TIME OF SERVICE: 1:20 pm EVENT: EXAM/PROCEDURE NOT COMPLETED - Patient became claustrophobic, reaction was: Moderate. ADDITIONAL EVENT DETAILS: no images acquired for mri t,l-spine SIGNATURE: RT Adele(R) PATIENT NAME: Nato Short DATE: December 21, 2021 TIME: 1:20 PM PAGER/CONTACT #: documented in this encounter [facility] 12-03-2021 Note HNO ID: [id number] Author: ANALI Schroeder) Service: ? Author Type: Technologist Type: Progress [...] Marie, RT(R) December 03, 2021 4:38 PM [facility] 12-03-2021 Note HNO ID: [id number] Author: Lazarus Johnson MD Service: ? Author [...] supervised home exercise program (HEP): No 5. Spd Tech: No Passive conservative therapy lasting 6 weeks in the last six months (see below) 1. Medical devises: No 2. Acupuncture: No 3. Tens unit: No 4. Prescription pain medication: No 5. 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 EXAMINATION: [id number]: Scoliosis: No Pelvic Tilt: No Leg Length [...] normal and s (more content not included)... [facility] 12-03-2021 History of Presen t illness [...] 2021 4:38 PM documented in this encounter [facility] 12-03-2021 History of Presen t illness Narrative SUBJECTIVE: Ms. Short a 51 [...] supervised home exercise program (HEP): No 5. Spd Tech: No Passive conservative therapy lasting 6 weeks in the last six months (see below) 1. Medical devises: No 2. Acupuncture: No 3. Tens unit: No 4. Prescription pain medication: No 5. 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 EXAMINATION: [id number]: Scoliosis: No Pelvic Tilt: No Leg Length [...] DDD. She has seen Dr. Montero in [place] - with no improvement after LESI and radiof frequency with no effect. Has had PT different series since 2017. She saw Dr. Hidalgo in [place] who referred to Dr. Perez because of [...] which included preparing to see the patient, [id number] patient care, completing clinical documentation, obtaining and/or reviewing separately obtained history, performing a medically appropriate examination, counseling and educating the patient/family/caregiver, ordering medications, tests, or procedures, communicating with other HCPs (not separately reported) and independently interpreting results (not separately reported). Lazarus Johnson MD documented in this encounter [facility] 12-02-2021 Miscellaneous Notes Patient was advised of the following: This is a follow up phone call regarding your appointment with Dr Johnson, which you are scheduled to see at [facility] on 12/03/2021 1) Have you been [...] need to reschedule please call us at [phone]. Left VM with new patient policy advised tpo call office with any questions or concerns'Keren Rosales MA documented in this encounter [facility] 11-19-2021 Note PROCEDURE: XR FOOT L [...] by: ZACH PEREZ Date: 2021-11-19 16:43 [facility] Evaluation note Diagnosis Degeneration of lumbar or lumbosacral intervertebral disc- Primary Radiculopathy of lumbar region Thoracic or lumbosacral neuritis or radiculitis, unspecified Radicular pain of left lower extremity Thoracic or lumbosacral neuritis or radiculitis, unspecified Discogenic low back pain Lumbago Hyperglycemia Other abnormal glucose History of fusion of cervical spine Arthrodesis status [facility] Radiculopathy of lumbar region- Primary Thoracic or lumbosacral neuritis or radiculitis, unspecified Lumbar disc herniation Displacement of lumbar intervertebral disc without myelopathy [facility] Diagnosis Lumbar disc herniation- Primary Displacement [...] spine Arthrodesis status [facility] Radiculopathy of lumbar region Thoracic or lumbosacral neuritis or radiculitis, unspecified Degeneration of lumbar or lumbosacral intervertebral disc Radicular pain of left lower extremity Thoracic or lumbosacral neuritis or radiculitis, unspecified Discogenic low back pain Lumbago [facility] Encounter for annual wellness visit- Primary Migraine with aura and without status migrainosus, not intractable (CMS/HCC) Primary insomnia Persistent disorder of initiating or maintaining sleep Pre-operative clearance Unspecified pre-operative examination Elevated blood pressure, situational Morbid obesity due to excess calories (CMS/[facility]) Current smoker documented in [facility] encounter [facility]* Diagnosis Anxiety and depression ([facility])- Primary Gastroesophageal reflux disease, unspecified whether esophagitis present Hypothyroidism (acquired) ([facility]) Unspecified hypothyroidism Yeast dermatitis Wheezing Acute non-recurrent maxillary sinusitis Antibiotic-induced yeast infection Hypothyroidism (acquired) ([facility])- Primary Unspecified hypothyroidism Anxiety and depression ([facility]) Mixed hyperlipidemia ([facility]) Mixed hyperlipidemia Primary insomnia Persistent disorder of initiating or maintaining sleep Hypothyroidism (acquired) ([facility])- Primary Unspecified hypothyroidism 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[facility]) Chronic lymphocytic thyroiditis Morbid obesity due to excess calories ([facility]) Gastroesophageal reflux disease, unspecified whether esophagitis present Hypothyroidism (acquired) ([facility])- Primary Unspecified hypothyroidism Morbid obesity due to excess calories ([facility]) Yeast dermatitis Encounter for screening mammogram for malignant neoplasm of breast Tinea pedis, recurrent Dermatophytosis of foot Lumbar radiculopathy- Primary Thoracic or lumbosacral neuritis or radiculitis, unspecified Morbid obesity due to excess calories ([facility]) Hypothyroidism (acquired) ([facility])- Primary Unspecified hypothyroidism Major depressive disorder, recurrent, moderate ([facility]) Major depressive disorder, recurrent episode, moderate Supraventricular tachycardia, unspecified ([facility]) Morbid obesity due to excess calories ([facility]) Cervical radiculopathy- Primary Brachial neuritis or radiculitis nos Elevated blood pressure, situational Morbid obesity due to excess calories ([facility]) Multiple thyroid nodules ([facility]) Nontoxic multinodular goiter Encounter for annual wellness visit- Primary Migraine with aura and without status migrainosus, not intractable ([facility]) Primary insomnia Persistent disorder of initiating or maintaining sleep Pre-operative clearance Unspecified pre-operative examination Elevated blood pressure, situational Morbid obesity due to excess calories ([facility]) Current smoker Oral thrush- Primary Candidiasis of mouth documented in this encounter [facility]* Diagnosis Anxiety and depression ([facility])- Primary Gastroesophageal reflux disease, unspecified whether esophagitis present Hypothyroidism (acquired) ([facility]) Unspecified hypothyroidism Yeast dermatitis Wheezing Acute non-recurrent maxillary sinusitis Antibiotic-induced yeast infection Hypothyroidism (acquired) ([facility])- Primary Unspecified hypothyroidism Anxiety and depression ([facility]) Mixed hyperlipidemia ([facility]) Mixed hyperlipidemia Primary insomnia Persistent disorder of initiating or maintaining sleep Hypothyroidism (acquired) ([facility])- Primary Unspecified hypothyroidism 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[facility]) Chronic lymphocytic thyroiditis Morbid obesity due to excess calories ([facility]) Gastroesophageal reflux disease, unspecified whether esophagitis present Hypothyroidism (acquired) ([facility])- Primary Unspecified hypothyroidism Morbid obesity due to excess calories ([facility]) Yeast dermatitis Encounter for screening mammogram for malignant neoplasm of breast Tinea pedis, recurrent Dermatophytosis of foot Lumbar radiculopathy- Primary Thoracic or lumbosacral neuritis or radiculitis, unspecified Morbid obesity due to excess calories ([facility]) Hypothyroidism (acquired) ([facility])- Primary Unspecified hypothyroidism Major depressive disorder, recurrent, moderate ([facility]) Major depressive disorder, recurrent episode, moderate Supraventricular tachycardia, unspecified ([facility]) Morbid obesity due to excess calories ([facility]) Cervical radiculopathy- Primary Brachial neuritis or radiculitis nos Elevated blood pressure, situational Morbid obesity due to excess calories ([facility]) Multiple thyroid nodules ([facility]) Nontoxic multinodular goiter Encounter for annual wellness visit- Primary Migraine with aura and without status migrainosus, not intractable ([facility]) Primary insomnia Persistent disorder of initiating or maintaining sleep Pre-operative clearance Unspecified pre-operative examination Elevated blood pressure, situational Morbid obesity due to excess calories ([facility]) Current smoker Gastroesophageal reflux disease, unspecified whether esophagitis present [facility] Diagnosis Anxiety and depression ([facility])- Primary Gastroesophageal reflux disease, unspecified whether esophagitis present Hypothyroidism (acquired) ([facility]) Unspecified hypothyroidism Yeast dermatitis Wheezing Acute non-recurrent maxillary sinusitis Antibiotic-induced yeast infection Hypothyroidism (acquired) ([facility])- Primary Unspecified hypothyroidism Anxiety and depression ([facility]) Mixed hyperlipidemia ([facility]) Mixed hyperlipidemia Primary insomnia Persistent disorder of initiating or maintaining sleep Hypothyroidism (acquired) ([facility])- Primary Unspecified hypothyroidism 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[facility]) Chronic lymphocytic thyroiditis Morbid obesity due to excess calories ([facility]) Gastroesophageal reflux disease, unspecified whether esophagitis present Hypothyroidism (acquired) ([facility])- Primary Unspecified hypothyroidism Morbid obesity due to excess calories ([facility]) Yeast dermatitis Encounter for screening mammogram for malignant neoplasm of breast Tinea pedis, recurrent Dermatophytosis of foot Lumbar radiculopathy- Primary Thoracic or lumbosacral neuritis or radiculitis, unspecified Morbid obesity due to excess calories ([facility]) Hypothyroidism (acquired) ([facility])- Primary Unspecified hypothyroidism Major depressive disorder, recurrent, moderate ([facility]) Major depressive disorder, recurrent episode, moderate Supraventricular tachycardia, unspecified ([facility]) Morbid obesity due to excess calories ([facility]) Cervical radiculopathy- Primary Brachial neuritis or radiculitis nos Elevated blood pressure, situational Morbid obesity due to excess calories ([facility]) Multiple thyroid nodules ([facility]) Nontoxic multinodular goiter Encounter for annual wellness visit- Primary Migraine with aura and without status migrainosus, not intractable ([facility]) Primary insomnia Persistent disorder of initiating or maintaining sleep Pre-operative clearance Unspecified pre-operative examination Elevated blood pressure, situational Morbid obesity due to excess calories ([facility]) Current smoker Cervical radiculopathy- Primary Brachial neuritis or radiculitis nos Cervical myelopathy ([facility]) Cervical spondylosis with myelopathy documented [facility] Diagnosis Anxiety and depression ([facility])- Primary Gastroesophageal reflux disease, unspecified whether esophagitis present Hypothyroidism (acquired) ([facility]) Unspecified hypothyroidism Yeast dermatitis Wheezing Acute non-recurrent maxillary sinusitis Antibiotic-induced yeast infection Hypothyroidism (acquired) ([facility])- Primary Unspecified hypothyroidism Anxiety and depression ([facility]) Mixed hyperlipidemia ([facility]) Mixed hyperlipidemia Primary insomnia Persistent disorder of initiating or maintaining sleep Hypothyroidism (acquired) ([facility])- Primary Unspecified hypothyroidism 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[facility]) Chronic lymphocytic thyroiditis Morbid obesity due to excess calories ([facility]) Gastroesophageal reflux disease, unspecified whether esophagitis present Hypothyroidism (acquired) ([facility])- Primary Unspecified hypothyroidism Morbid obesity due to excess calories ([facility]) Yeast dermatitis Encounter for screening mammogram for malignant neoplasm of breast Tinea pedis, recurrent Dermatophytosis of foot Lumbar radiculopathy- Primary Thoracic or lumbosacral neuritis or radiculitis, unspecified Morbid obesity due to excess calories ([facility]) Hypothyroidism (acquired) ([facility])- Primary Unspecified hypothyroidism Major depressive disorder, recurrent, moderate ([facility]) Major depressive disorder, recurrent episode, moderate Supraventricular tachycardia, unspecified ([facility]) Morbid obesity due to excess calories ([facility]) Cervical radiculopathy- Primary Brachial neuritis or radiculitis nos Elevated blood pressure, situational Morbid obesity due to excess calories ([facility]) Multiple thyroid nodules ([facility]) Nontoxic multinodular goiter Encounter for annual wellness visit- Primary Migraine with aura and without status migrainosus, not intractable ([facility]) Primary insomnia Persistent disorder of initiating or maintaining sleep Pre-operative clearance Unspecified pre-operative examination Elevated blood pressure, situational Morbid obesity due to excess calories ([facility]) Current smoker Hypothyroidism (acquired) ([facility]) Unspecified hypothyroidism documented in this encounter [facility] Diagnosis Anxiety and depression ([facility])- Primary Gastroesophageal reflux disease, unspecified whether esophagitis present Hypothyroidism (acquired) ([facility]) Unspecified hypothyroidism Yeast dermatitis Wheezing Acute non-recurrent maxillary sinusitis Antibiotic-induced yeast infection Hypothyroidism (acquired) ([facility])- Primary Unspecified hypothyroidism Anxiety and depression ([facility]) Mixed hyperlipidemia ([facility]) Mixed hyperlipidemia Primary insomnia Persistent disorder of initiating or maintaining sleep Hypothyroidism (acquired) ([facility])- Primary Unspecified hypothyroidism 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[facility]) Chronic lymphocytic thyroiditis Morbid obesity due to excess calories ([facility]) Gastroesophageal reflux disease, unspecified whether esophagitis present Hypothyroidism (acquired) ([facility])- Primary Unspecified hypothyroidism Morbid obesity due to excess calories ([facility]) Yeast dermatitis Encounter for screening mammogram for malignant neoplasm of breast Tinea pedis, recurrent Dermatophytosis of foot Lumbar radiculopathy- Primary Thoracic or lumbosacral neuritis or radiculitis, unspecified Morbid obesity due to excess calories ([facility]) Hypothyroidism (acquired) ([facility])- Primary Unspecified hypothyroidism Major depressive disorder, recurrent, moderate ([facility]) Major depressive disorder, recurrent episode, moderate Supraventricular tachycardia, unspecified ([facility]) Morbid obesity due to excess calories ([facility]) Cervical radiculopathy- Primary Brachial neuritis or radiculitis nos Elevated blood pressure, situational Morbid obesity due to excess calories (CMS/HCC) Multiple thyroid nodules (CMS/HCC) Nontoxic multinodular goiter Encounter for annual wellness visit- Primary Migraine with aura and without status migrainosus, not intractable (CMS/HCC) Primary insomnia Persistent disorder of initiating or maintaining sleep Pre-operative clearance Unspecified pre-operative examination Elevated blood pressure, situational Morbid obesity due to excess calories (CMS/HCC) Current smoker Muscle spasm- Primary Spasm of muscle documented in this encounter [facility] Diagnostic Procedure Only (Routine) - Closed Specialty Diagnoses / Procedures Referred By Sylvester varela Referred To Contact XR IMAGING Diagnoses Radiculopathy of lumbar region Degeneration of lumbar or lumbosacral intervertebral disc Radicular pain of left lower extremity Discogenic low back pain Procedures XR LUMBAR GENERAL 3V AP/LAT/L5-S1 RADEX SPINE LUMBOSACRAL 2/3 VIEWS Lazarus Johnson MD [address] [place] [address] Xr Imaging Referral ID Status Reason Start Date Expiration Date V isits Requested Visits Authorized [id number] Closed Auto-Generate d Referral 12/03/2021 01/02/2023 1 1 [facility] Summary Purpose Family History No Family [...] Referral Specialty Diagnoses / Procedures Referred By Sylvester varela Referred To Contact MR IMAGING Diagnoses Radiculopathy of lumbar region Procedures MRI LUMBAR SPINE WO IVCON MRI SPINAL CANAL LUMBAR W/O CONTRAST MATERIAL Lazarus Johnson MD [address] [place] [address] Mr Imaging Referral ID Status Reason Start Date Expiration Date Visits Requested Visits Authorized [id number] Authorized Auto-Generat ed Referral 12/03/2021 12/21/2021 1 1 Specialty Diagnoses / Procedures Referred By Contac t Referred To Contact MR IMAGING Diagnoses Radiculopathy of lumbar region Procedures MRI THORACIC SPINE WO IVCON MRI SPINAL CANAL THORACIC W/O CONTRAST MATRL Lazarus Johnson MD [address] [place] [address] Mr Imaging Referral ID Status Reason Start Date Expiration Date Visits Requested Visits Authorized [id number] Authorized Auto-Generat ed Referral 12/03/2021 12/21/2021 1 1 Specialty Diagnoses / Procedures Referred By Contac t Referred To Contact XR IMAGING Diagnoses Radiculopathy of lumbar region Degeneration of lumbar or lumbosacral intervertebral disc Radicular pain of left lower extremity Discogenic low back pain Procedures XR LUMBAR GENERAL 3V AP/LAT/L5-S1 RADEX SPINE LUMBOSACRAL 2/3 VIEWS Lazarus Johnson MD [address] [place] [address] Xr Imaging Referral ID Status Reason Start Date Expiration Date V isits Requested Visits Authorized [id number] Closed Auto-Generate d Referral 12/03/2021 01/02/2023 1 1 Specialty Diagnoses / Procedures Referred By Contac t Referred To Contact Diagnoses Radiculopathy of lumbar region Lumbar disc herniation Procedures CONSULT TO SPINE SURGERY OFFICE/[facility] 60-74 MINUTES Lindy Gunderson, [place] [address] [address] Referral ID Status Reason Start Date Expiration Date Visits Requested Visits Authorized [id number] Authorized PCP Requested Referral 01/14/2022 01/14/2023 1 1 Specialty Diagnoses / Procedures Referred By Contac t Referred To Contact Diagnoses Migraine with aura and without status migrainosus, not intractable (CMS/HCC) Whit Sorensen, [place]UN[facility] [address] [place] [address] Referral ID Status Reason Start Date Expiration Date V isits Requested Visits Authorized [id number] Pending Review 03/28/2024 09/24/2024 1 1 Additional Source Comments INFORMATION SOURCE (unrecogn ized section and content) DATE CREATED AUTHOR 10/22/2020 Jero Moses [facility] DATE CREATED AUTHOR AUTHOR'S ORGANIZ ATION 01/29/2022 [facility] DATE CREATED AUTHOR AUTHOR'S ORGANIZ ATION 03/04/2022 [facility] DATE CREATED AUTHOR AUTHOR'S ORGANIZ ATION 07/21/2022 [facility] DATE CREATED AUTHOR AUTHOR'S ORGANIZ ATION 02/13/2023 [facility] DATE CREATED AUTHOR AUTHOR'S ORGANIZ ATION 03/30/2024 [facility] EPIC DATE CREATED AUTHOR AUTHOR'S ORGANIZ ATION 05/10/2024 [facility] Source Comments (unrecognize d section and content) In the event this informatio n is protected by the Federal Confidentiality of Alcohol and Drug Abuse Patient Records regulations: The Federal rules restrict any use of the information to criminally investigate or prosecute any alcohol or drug abuse patient.[facility] the event this information is protected by the Federal Confidentiality of Alcohol and Drug Abuse Patient Records regulations: The Federal rules restrict any use of the information to criminally investigate or prosecute any alcohol or drug abuse patient.[facility] the event this information is protected by the Federal Confidentiality of Alcohol and Drug Abuse Patient Records regulations: The Federal rules restrict any use of the information to criminally investigate or prosecute any alcohol or drug abuse patient.[facility] the event this information is protected by the Federal Confidentiality of Alcohol and Drug Abuse Patient Records regulations: The Federal rules restrict any use of the information to criminally investigate or prosecute any alcohol or drug abuse patient.[facility] the event this information is protected by the Federal Confidentiality of Alcohol and Drug Abuse Patient Records regulations: The Federal rules restrict any use of the information to criminally investigate or prosecute any alcohol or drug abuse patient.[facility] the event this information is protected by the Federal Confidentiality of Alcohol and Drug Abuse Patient Records regulations: The Federal rules restrict any use of the information to criminally investigate or prosecute any alcohol or drug abuse patient.[facility] the event this information is protected by the Federal Confidentiality of Alcohol and Drug Abuse Patient Records regulations: The Federal rules restrict any use of the information to criminally investigate or prosecute any alcohol or drug abuse patient.[facility] the event this information is protected by the Federal Confidentiality of Alcohol and Drug Abuse Patient Records regulations: The Federal rules restrict any use of the information to criminally investigate or prosecute any alcohol or drug abuse patient.[facility] the event this information is protected by the Federal Confidentiality of Alcohol and Drug Abuse Patient Records regulations: The Federal rules restrict any use of the information to criminally investigate or prosecute any alcohol or drug abuse patient.[facility] the event this information is protected by the Federal Confidentiality of Alcohol and Drug Abuse Patient Records regulations: The Federal rules restrict any use of the information to criminally investigate or prosecute any alcohol or drug abuse patient.[facility] the event this information is protected by the Federal Confidentiality of Alcohol and Drug Abuse Patient Records regulations: The Federal rules restrict any use of the information to criminally investigate or prosecute any alcohol or drug abuse patient.[facility] the event this information is protected by the Federal Confidentiality of Alcohol and Drug Abuse Patient Records regulations: The Federal rules restrict any use of the information to criminally investigate or prosecute any alcohol or drug abuse patient.[facility] the event this information is protected by the Federal Confidentiality of Alcohol and Drug Abuse Patient Records regulations: The Federal rules restrict any use of the information to criminally investigate or prosecute any alcohol or drug abuse patient.[facility] Reason for Visit (unrecogniz ed section and content) Reason Comments Radiology MRI Specialty Diagnoses / Procedures Referred By Contac t Referred To Contact MR IMAGING Diagnoses Radiculopathy of lumbar region Procedures MRI THORACIC SPINE WO IVCON MRI SPINAL CANAL THORACIC W/O CONTRAST DANIELL Lazarus Johnson MD [address] [facility] [address] [place] [id number] Referral ID Status Reason Start Date Expiration Date V isits Requested Visits Authorized [id number] Closed Auto-Generate d Referral 12/23/2021 06/26/2022 1 1 Reason Comments Appointment pain management Reason Comments Consult Reason Comments Radiology XR Specialty Diagnoses / Procedures Referred By Sylvester t Referred To Contact XR IMAGING Diagnoses Radiculopathy of lumbar region Degeneration of lumbar or lumbosacral intervertebral disc Radicular pain of left lower extremity Discogenic low back pain Procedures XR LUMBAR GENERAL 3V AP/LAT/L5-S1 RADEX SPINE LUMBOSACRAL 2/3 VIEWS Lazarus Johnson MD [address] [place] [address] Xr Imaging Referral ID Status Reason Start Date Expiration Date V isits Requested Visits Authorized [id number] Closed Auto-Generate d Referral 12/03/2021 01/02/2023 1 1 Reason Comments Med Refill Care Teams (unrecognized sec tion and content) Resource Management Specialist Relationship Specialty Start Date End Date Fidel Smith MD [address] [place] [phone] PCP - General Family Medicine 08/01/23 Resource Management Specialist Relationship Specialty Start Date End Date Fidel Smith MD [address] [place] [phone] PCP - General Family Medicine 08/01/23 Resource Management Specialist Relationship Specialty Start Date End Date Fidel Smith MD [address] [place] [phone] PCP - General Family Medicine 08/01/23 Resource Management Specialist Relationship Specialty Start Date End Date Fidel Smith MD [address] [place] [phone] PCP - General Family Medicine 08/01/23 Resource Management Specialist Relationship Specialty Start Date End Date Fidel Smith MD [address] [place] [phone] PCP - General Family Medicine 08/01/23 Resource Management Specialist Relationship Specialty Start Date End Date Fidel Smith MD [address] [place] [phone] PCP - General [facility] 08/01/23 Resource Management Specialist Relationship Specialty Start Date End Date Fidel Smith MD [address] [place] [phone] PCP - [facility] 08/01/23 Resource Management Specialist Relationship Specialty Start Date End Date Fidel Smith MD [address] [place] [phone] PCP - General Family Medicine 08/01/23 FOR RECORDS PERTAINING TO PATIENTS WHO [...] BE BASED ON THE PRIMARY CLINICAL RECORDS. [employer] [facility]. provides no warranty or guarantee of the accuracy or completeness of information in this document.
--- NOTE | 2024-05-30 08:22 | P.CN_ITS ---
Consult Note: HPI Data of Consult Patient: new to practice Requesting Physician: Jake Liu MD Primary Care Provider: Whit Sorensen NP Consult Narrative Reason for consult: establish, neck pain Narrative: Christen Palacios a pleasant 53 year old female presents for evaluation and management of chronic neck, bilateral shoulder, bilateral arm pain. 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 Following with Dr Parmar, recent cervical xray without results. No recent CT or MRI. Pt finds mild benefit from duloxetine 60mg daily, tizanidine 4mg q8hrs, tylenol and ibuprofen. Pain today 4-5/10 increasing to 10/10 with twisting, standing, walking, reaching above her head, and activity. Pain improved with reclining and heat. failed TENS, has not trialed PT. engaged in HEP > 6 weeks without benefit. cc:: CC: Jake Liu MD Review of Systems ROS Status of ROS 10 or more systems reviewed and unremark able except as noted in history and below Musculoskeletal Reports: neck pain and extremity pain Meds Home Medications and Allergies Home Medications ?Medication ?Instructions ?Recorded ?Confirmed ?Type gabapentin 600 mg tablet 600 mg PO TID 12/06/22 12/06/22 History levothyroxine 137 mcg tablet 137 mcg PO DAILY 12/06/22 12/06/22 History (Levo-T) mupirocin 2 % topical ointment 1 applic topical TID #15 grams 12/06/22 Rx omeprazole 40 mg capsule,delayed 40 mg PO DAILY 12/06/22 12/06/22 History release sulfamethoxazole 800 1 tab PO BID 7 days #14 tabs 12/06/22 Rx mg-trimethoprim 160 mg tablet (Bactrim DS) tizanidine 4 mg capsule 4 mg PO Q8H 12/06/22 12/06/22 History Allergies Allergy/AdvReac Type Severity Reaction Status Date / Time Penicillins Allergy Severe Hives Verified 12/06/22 12:52 Exam Constitutional Documenting provider has reviewed patient's vital signs: yes Common normals: no apparent distress, oriented x3, healthy appearing, alert and well nourished General appearance: cooperative HENMT Common normals: normocephalic, hearing grossly normal bilaterally and moist oral mucous membranes Head and scalp: normocephalic Eye Common normals: PERRL Pupil: PERRL Neck & C-Spine Common normals: full ROM General: normal visual inspection Cervical spine: cervical ROM abnormal, pain with cervical ROM, cervical spine tenderness, paracervical muscle tenderness and trapezius muscle tenderness; cervical ROM not normal Other: positive spurlings decreased sensation to bilateral c5,6,7 strength 4/5 in BUE Chest Common normals: inspection of chest normal Respiratory Common normals: normal respiratory effort, no retractions and no use of accessory muscles Neuro Common normals: oriented x3, CN's II-XII intact bilaterally, moves all extremities, no focal motor deficits, no sensory deficits noted and deep tendon reflexes 2+ bilaterally Sensorium/orientation: alert Motor exam: strength 5/5 throughout and no movement abnormalities noted Psych Common normals: mental status grossly normal, thought process normal, cooperative, affect normal, speech normal and activity/motor behavior normal Speech: normal speech Thought process: normal thought process Assessment and Plan Assessment and Plan (1) Failed neck syndrome: (2) Cervical radiculopathy: (3) Cervical spondylosis: (4) Myofascial pain: Plan update cervical MRI without contrast to assess failed neck syndrome, cervical radiculopathy for interventional therapy stop tizanidine, start baclofen 5-10mg TID PRN pain/spasms continue HEP as tolerated start transdermal therapeutics cream 8a TID-QID 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
== END 2024-05-30 07:52 | disposition home or self-care (01) ==
PROVIDERS: PCP Nurse Practitioner; Visit Provider Anesthesiology
DX: M54.12 Radiculopathy, cervical region (principal); M47.812 Spondylosis without myelopathy or radiculopathy, cervical region; M79.18 Myalgia, other site; M96.0 Pseudarthrosis after fusion or arthrodesis
CPT/HCPCS: G0463

== ENCOUNTER 2024-06-13 17:54 | Emergency (ER) | payer OTHER, SELFPAY ==
[2024-06-13 18:05] VITALS: BP 176/101; PULSE 95; TEMP 36.6; O2SAT 97; BMI 43.4
--- OUTSIDE RECORDS SUMMARY | 2024-06-13 18:06 | XMS_ITS | CCD ---
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 Name Role Phone Unavailable Primary Care Provider Unavailabl e AICHHOLZ, PATIENT CARE NURSING ASSISTANT WHIT Consulting Unavailable AICHHOLZ, PATIENT CARE NURSING ASSISTANT WHIT Attending Unavailable AICHHOLZ, PATIENT CARE NURSING ASSISTANT WHIT Admitting Unavailable AICHHOLZ, PATIENT CARE NURSING ASSISTANT WHIT Primary Care Unavailable AICHHOLZ, PATIENT CARE NURSING ASSISTANT WHIT Admitting Unavailable AICHHOLZ, PATIENT CARE NURSING ASSISTANT WHIT Primary Care Unavailable AICHHOLZ, PATIENT CARE NURSING ASSISTANT WHIT Consulting Unavailable AICHHOLZ, PATIENT CARE NURSING ASSISTANT WHIT Attending Unavailable AICHHOLZ, PATIENT CARE NURSING ASSISTANT WHIT Admitting Unavailable AICHHOLZ, PATIENT CARE NURSING ASSISTANT WHIT Primary Care Unavailable AICHHOLZ, PATIENT CARE NURSING ASSISTANT WHIT Attending Unavailable DR NAOMIE THEODORE V Consulting Unavailable AICHHOLZ, PATIENT CARE NURSING ASSISTANT WHIT Consulting Unavailable JAYASHREE, DR DONATO Admitting Unavailable AICHHOLZ, PATIENT CARE NURSING ASSISTANT WHIT Primary Care Unavailable JAYASHREE, DR DONATO Attending Unavailable AICHHOLZ, PATIENT CARE NURSING ASSISTANT WHIT Admitting Unavailable AICHHOLZ, PATIENT CARE NURSING ASSISTANT WHIT Primary Care Unavailable AICHHOLZ, PATIENT CARE NURSING ASSISTANT WHIT Attending Unavailable AICHHOLZ, PATIENT CARE NURSING ASSISTANT WHIT Primary Care Unavailable DR FIDEL SMITH Attending Unavailable DR FIDEL SMITH Admitting Unavailable DR NAOMIE THEODORE V Consulting Unavailable DR FIDEL SMITH Consulting Unavailable HEIDI MEJIAS Consulting Unavailable Naomie Velasquez Consulting Unavailable SISTER, TE Consulting Unavailable AICHHOLZ, PATIENT CARE NURSING ASSISTANT WHIT Primary Care Unavailable ONEIL LOPEZ Consulting Unavailable ONEIL LOPEZ Attending Unavailable ONEIL LOPEZ Admitting Unavailable Naomie Velasquez Consulting Unavailable DR MEY FARNSWORTH Attending Unavailable JAVAD, DR MATHIAS Admitting Unavailable AICHHOLZ, PATIENT CARE NURSING ASSISTANT WHIT Primary Care Unavailable DR MEY FARNSWORTH Consulting Unavailable AICHHOLZ, PATIENT CARE NURSING ASSISTANT WHIT Primary Care Unavailable DR LANDEN HEARN Consulting Unavailable DIOGENES MILLER Attending Unavailable DIOGENES MILLER Admitting Unavailable ZIA DESAI Consulting Unavailable AICHHOLZ, PATIENT CARE NURSING ASSISTANT WHIT Admitting Unavailable AICHHOLZ, PATIENT CARE NURSING ASSISTANT WHIT Consulting Unavailable AICHHOLZ, PATIENT CARE NURSING ASSISTANT WHIT Attending Unavailable MACK GUAMAN Primary Care Unavailable Naomie Velasquez Consulting Unavailable AICHHOLZ, PATIENT CARE NURSING ASSISTANT WHIT Primary Care Unavailable LING GAMING Attending Unavailable AMBERLY, LING Admitting Unavailable DR ZACH PEREZ Consulting Unavailable AMBERLYLING BARBOSA Consulting Unavailable AICHHOLZ, PATIENT CARE NURSING ASSISTANT WHIT Admitting Unavailable AICHHOLZ, PATIENT CARE NURSING ASSISTANT WHIT Primary Care Unavailable AICHHOLZ, PATIENT CARE NURSING ASSISTANT WHIT Attending Unavailable AICHHOLZ, PATIENT CARE NURSING ASSISTANT WHIT Primary Care Unavailable AICHHOLZ, PATIENT CARE NURSING ASSISTANT WHIT Admitting Unavailable AICHHOLZ, PATIENT CARE NURSING ASSISTANT WHIT Consulting Unavailable AICHHOLZ, PATIENT CARE NURSING ASSISTANT WHIT Attending Unavailable Unavailable Primary Care Provider Unavailnia MERCEDESHDAMONZ, WHIT Charline Primary Care Unavailable LAINE OROZCO Referring Unavailable AICHHOLZ, WHIT Attending Unavailable AICHHOLZ, WHIT Attending Unavailable AICHHOLZ, WHIT Attending Unavailable AICHHOLZ, WHIT Attending Unavailable AICHHOLZ, WHIT Attending Unavailable CAMPBELL BACH Attending Unavailable AICHHOLZ, WHIT Referring Unavailable AICHHOLZ, WHIT Attending Unavailable AICHHOLZ, WHIT Attending Unavailable AICHHOLZ, WHIT Attending Unavailable Fidel Smith MD Primary Care Provider [phone] LAINE OROZCO Attending Unavailable LAINE OROZCO Referring Unavailable Allergies Allergy Classification Reported Allergen(s) Allergy Type Date of Onset Reaction(s) Facility (3 sources) Penicillins; Translations: [PENICILLINS] Drug Allergy 3 Swelling [facility] (11 sources) Penicillins Drug Allergy 3 Swelling [facility] (2 sources) Penicillins Drug allergy (disorder) 3 [facility] Repository (17 sources) Chlorhexidine; Translations: [CHLORHEXIDINE] Drug Allergy 2 Itching [facility] (16 sources) Penicillin G Drug Allergy 3 Swelling, Rash [facility] (16 sources) Penicillins Drug Allergy 3 Rash, Swelling [facility] (1 source) Chlorhexidine; Translations: [CHLORHEXIDINE GLUCONATE] Drug Allergy 2 [facility] Repository Medications Current Medications Medication Drug Class(es) Dates Sig (Normalized) Sig (Original) acetaminophen 325 mg / HYDROcodone bitartrate 5 mg oral tablet (3 sources) Opioid Agonist Start: 03-26-2024 End: 03-31-2024 take 1 tablet by mouth every eight hours for pain HYDROcodone-acetami nophen (Draper) 5-325 MG tablet Indications: Cervical radiculopathy Take 1 tablet by mouth every 8 (eight) hours if needed for severe pain for up to 5 days 15 tablet 03/26/2024 03/31/2024 Active [id number] 200 actuat albuterol 0.09 mg/actuat metered dose [...] BREATH amitriptyline hydrochloride 10 mg oral tablet (11 sources) Tricyclic Antidepressant Start: End: take 1 tablet by mouth at bedtime amitriptyline (Elavil) 10 MG tablet Indications: Migraine with aura and without status migrainosus, not intractable (CMS/HCC) , Primary insomnia Take 1 tablet (10 mg) by mouth at bedtime 90 tablet 06/04/2024 09/02/2024 Active atorvastatin 20 mg oral tablet (17 sources) HMG-CoA Reductase Inhibitor Start: End: take 1 tablet by mouth at bedtime atorvastatin (Lipitor) 20 MG tablet Indications: Mixed hyperlipidemia (CMS/HCC) Take 1 tablet (20 mg) by mouth at bedtime 90 tablet 06/04/2024 09/02/2024 Active baclofen 10 mg oral tablet (1 source) gamma-Aminobutyric Acid-ergic Agonist End: take 1 tablet by mouth every eight hours as needed baclofen (Lioresal) 10 MG tablet Take 10 mg by mouth every 8 (eight) hours if needed for muscle spasms Per [facility] pain mgmt 06/04/2024 Discontinued (Therapy completed) ciclopirox 80 mg/ml topical solution (19 sources) Start: End: ciclopirox (Penlac) 8 % solution Indications: Onychomycosis Apply topically at bedtime 6.6 mL 11 02/23/2024 03/28/2024 Active Start: 10-22-2021 Ciclopirox (LO PROX) 8 % solution Apply jublia TO affected toenails ONCE daily FOR 48 WEEKS 0 10/22/2021 Active Comment on above: Apply jublia TO affe cted toenails ONCE daily FOR 48 WEEKS DULoxetine 60 mg delayed release oral capsule (17 sources) Serotonin and Norepinephrine Reuptake Inhibitor Start: End: take 1 capsule by mouth once daily DULoxetine (Cymbalta) [address] capsule Indications: Anxiety and depression (CMS/HCC) Take 1 capsule (60 mg) by mouth Daily Discontinue the 30mg script 90 capsule 1 06/04/2024 09/02/2024 Active hydrocortisone 0.025 mg/mg topical ointment (16 sources) Corticosteroid Start: hydrocortisone 2.5 % ointment [...] and also take 175mcg dose EVERY DAY 36 tablet 1 06/04/2024 09/02/2024 Active Start: 03-07-2024 End: 09-02-2024 take 1 tablet by mouth in the morning levothyroxine (Synthroid, Levoxyl) 175 MCG tablet Indications: Hypothyroidism (acquired) (CMS/HCC) Take 1 tablet (175 mcg) by mouth in the morning. Take before meals. 175mcg pill every day, and then on Tuesday, Tuesday, and Tuesday take an additional 25mcg pill (separate pill). 90 tablet 1 06/04/2024 09/02/2024 Active Start: 03-05-2024 End: 04-04-2024 take 1 tablet by mouth before mealtime levothyroxine (Synthroid, Levoxyl) 150 MCG tablet Indications: Hypothyroidism (acquired) (CMS/HCC) Take 1 tablet (150 mcg) by mouth in the morning. Take before meals. 30 tablet 1 03/05/2024 03/07/2024 Discontinued (Ineffective) Start: 08-17-2021 levothyroxine 150 mcg cap End: 12-03-2021 levothyroxine (SYNTHROID) 11 2 mcg tablet Take 112 mcg by mouth. 0 12/03/2021 Discontinued Comment on above: Take 112 mcg by mout h. meloxicam 15 mg oral tablet (16 sources) Nonsteroidal Anti-inflammatory Drug Start: 04-17-2024 End: 09-02-2024 meloxicam (Mobic) 15 MG tablet Indications: Spinal stenosis of lumbar region, unspecified whether neurogenic claudication present Take 1 tablet (15 mg) by mouth Daily as needed for mild pain (pain 1-3) 90 tablet 06/04/2024 09/02/2024 Active Start: 11-19-2021 take 1 tablet by isaak once daily meloxicam (MOBIC) 15 mg tablet Take 15 mg by mouth once daily. 0 11/19/2021 Active Comment on above: Take 15 mg by mouth once daily. nystatin [id number] unt/ml oral suspension (1 source) Polyene Antifungal Start: 04-12-20 End: 04-26-20 nystatin (Mycostatin) [id number] UNIT/ML suspension Indications: Oral thrush Take 5 [...] sources) Proton Pump Inhibitor Start: 02-13-20 End: 09-03-19 take 1 capsule by mouth in the morning omeprazole (PriLOSEC) [address] capsule Indications: Gastroesophageal reflux disease, unspecified whether esophagitis present Take 1 capsule (40 mg) by mouth in the morning and 1 capsule (40 mg) in the evening. Take before meals. 180 capsule 06/04/2024 09/02/2024 Active omeprazole (PRIL OSEC) 40 mg capsule [...] Active terbinafine hydrochloride 10 mg/ml topical cream (16 sources) Allylamine Antifungal Start: 02-22-20 terbinafine (LamISIL AT) 1 % cream Indications: Tinea pedis of left foot Apply topically 2 (two) times a day 42 g 11 02/22/2024 Active tiZANidine 4 mg oral tablet (19 sources) Central alpha-2 Adrenergic Agonist Start: 03-09-20 End: 06-07-20 take 1 tablet by mouth every eight hours as needed for muscle spasms and muscle spasms tiZANidine (Zanaflex) 4 MG tablet Indications: Muscle spasm Take 1 tablet (4 mg) by mouth every 8 (eight) hours if needed for muscle spasms for up to 10 days 30 tablet 1 05/28/2024 06/04/2024 Discontinued (Therapy completed) Start: 11-10-2021 End: 03-23-2022 take 1 tablet [...] daily. cyclobenzaprine hydrochloride 10 mg oral tablet (8 sources) Muscle Relaxant Start: 02-14-2024 End: 03-28-2024 [...] completed) phentermine hydrochloride 37.5 mg oral tablet (8 sources) Sympathomimetic Amine Anorectic Start: 2023 End: 2023 take 1 tablet by mouth before mealtime phentermine (Adipex-P) 37.5 MG tablet Indications: Morbid obesity due to excess calories (CMS/HCC) Take 1 tablet (37.5 mg) by mouth in the morning. Take before meals. 30 tablet 02/29/2024 03/28/2024 Discontinued (Ineffective) 0.5 ml SUMAtriptan 12 mg/ml injection (8 sources) Serotonin-1b and Serotonin-1d Receptor Agonist End: 2023 inject 6 mg by subcutaneous injection once SUMAtriptan (Imitrex) 6 MG/0.5ML solution Inject 6 mg under the skin 1 (one) time if needed for migraine. 03/28/2024 Discontinued (Therapy completed) traZODone hydrochloride 50 mg oral tablet (8 sources) Serotonin Reuptake Inhibitor Start: 2023 End: 2023 take 2 tablets by mouth at bedtime traZODone (Desyrel) 50 MG tablet Indications: Primary insomnia Take 2 tablets (100 mg) by mouth at bedtime 180 tablet 1 03/15/2024 03/28/2024 Discontinued (Ineffective) Problems Active Problems Problem Classification Problem Date Documented Date Episodic/Chronic Anxiety disorders (17 sources) Mixed anxiety and depressive disorder; Translations: [Anxiety disorder, unspecified] Onset: 05-24-2023 05-24-2023 Chronic Cardiac dysrhythmias (18 sources) Supraventricular tachycardia; Translations: [Supraventricular tachycardia, unspecified] [...] [Hyperglycemia, unspecified] Episodic Disorders of lipid metabolism (17 sources) Mixed hyperlipidemia; Translations: [Mixed hyperlipidemia] Onset: 09-05-2023 09-05-2023 Chronic Esophageal disorders (18 sources) Gastroesophageal reflux disease; Translations: [Gastro-esophageal reflux [...] DZ] Onset: 07-19-2022 Episodic Malaise and fatigue (16 sources) Fatigue; Translations: [Chronic fatigue, unspecified] Onset: 09-05-2023 09-05-2023 Chronic Miscellaneous mental health disorders (19 sources) Primary insomnia; Translations: [Primary insomnia] Onset: 09-05-2023 03-28-2024 Chronic Mood disorders (18 sources) Moderate recurrent major depression; Translations: [Major depressive disorder, recurrent, moderate] Onset: 09-05-2023 03-08-2024 Chronic Mycoses (20 sources) Candidiasis of skin; Translations: [Candidiasis of skin and nail] Onset: 05-24-2023 05-24-2023 Episodic Other aftercare (1 source) Other it communications manager (current) drug therapy; Translations: [OTH ASSISTED CURRENT DRUG THERAPY] Onset: 05-31-2022 Episodic Other circulatory disease (13 sources) Transient hypertension; Translations: [Elevated blood-pressure reading, without diagnosis of hypertension] Onset: 03-26-2024 03-28-2024 Episodic Other connective tissue disease (4 sources) Spasm; Translations: [Other muscle spasm] Onset: 05-28-2024 05-28-2024 Episodic Other female genital disorders (16 sources) Simple endometrial glandular hyperplasia without atypia; Translations: [Benign endometrial hyperplasia] Onset: 09-05-2023 09-05-2023 Chronic Other nervous system disorders (18 sources) Cervical myelopathy; Translations: [Disease of spinal cord, unspecified] Onset: 11-10-2018 09-05-2023 Chronic Other nutritional; endocrine; and metabolic disorders (20 sources) Morbid obesity; Translations: [Morbid (severe) obesity due to excess calories] Onset: 09-05-2023 03-28-2024 Chronic Other upper respiratory disease (16 sources) Allergic rhinitis; Translations: [Allergic rhinitis, unspecified] [...] lumbar region] Onset: 11-15-2018 Episodic Substance-related disorders (19 sources) Nicotine dependence, cigarettes, uncomplicated; Translations: [Smoker] [...] UNSPECIFIED; Translations: [COUGH, UNSPECIFIED] Onset: 01-18-2022 Unclassified (16 sources) Patient on antidepressant monitoring plan Onset: 05-24-2023 05-24-2023 Unclassified (16 sources) Baseline PHQ-9 Onset: 05-24-2023 05-24-2023 Viral infection (4 sources) COVID-19; Translations: [COVID-19] Onset: 07-23-2021 Past or Other Problems Problem Classification Problem Date Documented Date Episodic/Chronic Allergic reactions (16 sources) Idiopathic urticaria; Translations: [Urticaria, unspecified] Onset: 09-05-2023 09-05-2023 Episodic Coma; stupor; and brain damage (16 sources) Daytime somnolence; Translations: [Somnolence] Onset: 09-05-2023 09-05-2023 Episodic Genitourinary symptoms and ill-defined conditions (16 sources) Urinary symptoms ; Translations: [Unspecified symptoms and signs involving the genitourinary system] Onset: 09-19-2023 09-19-2023 Episodic Malaise and fatigue (16 sources) Fatigue; Translations: [Other fatigue] Onset: 12-12-2023 12-12-2023 Episodic Nonmalignant breast conditions (16 sources) Lump in left breast; Translations: [Unspecified lump in the left breast, unspecified quadrant] Onset: 09-05-2023 09-05-2023 Episodic Other connective tissue disease (12 sources) History of cervical spine fusion; Translations: [Arthrodesis status] Onset: 12-14-2021 Episodic Other connective tissue disease (4 sources) Pain in left foot; Translations: [PAIN IN LEFT FOOT] Onset: 11-19-2021 Episodic Other connective tissue disease (16 sources) Radial styloid tenosynovitis; Translations: [Radial styloid tenosynovitis [de Quervain]] Onset: 09-05-2023 Resolved: 09-05-2023 09-05-2023 Episodic Other lower respiratory disease (3 sources) Shortness of breath; Translations: [SHORTNESS OF BREATH] Onset: 01-14-2022 Episodic Other screening for suspected conditions (not mental disorders or infectious disease) (16 sources) Patient encounter status; Translations: [Encounter for screening mammogram for malignant neoplasm of breast] Onset: 01-05-2024 01-05-2024 Episodic Other upper respiratory infections (16 sources) Acute maxillary sinusitis; Translations: [Acute maxillary sinusitis, unspecified] Onset: 05-24-2023 Resolved: 09-05-2023 09-05-2023 Episodic Residual codes; unclassified (16 sources) History of noncompliance with medication regimen; Translations: [History of medication noncompliance] Onset: 09-05-2023 Resolved: 03-08-2024 03-08-2024 Episodic Screening and history of mental health and substance abuse codes (1 source) Personal history of nicotine dependence; Translations: [PERSONAL HISTORY OF NICOTINE DEPEND] Onset: 02-08-2022 Episodic Thyroid disorders (16 sources) Sick-euthyroid syndrome; Translations: [Sick-euthyroid syndrome] Onset: 09-05-2023 09-05-2023 Episodic Unclassified (1 source) CONTACT W/AND (SUSP) EXPOS COVID-19; Translations: [CONTACT W/AND (SUSP) EXPOS COVID-19] Onset: 07-15-2022 Unclassified (1 source) LOW BACK PAIN, UNSPECIFIED; Translations: [LOW BACK PAIN, UNSPECIFIED] Onset: 02-03-2022 Results Test Name Value Interpretation Reference Range Facility ALL THYROID STIM HORMONEon 1 07-10-2023 Interpretation and review of laboratory results Abnormal [facility] TSH Qn 7.43 m[IU]/L High [facility] ALL THYROXINE (T4) FREEon Free T4 [Mass/Vol] 1.02 ng/dL 0.76 - 1. 46 ng/dL [facility] 36on 05-08-2024 36 I [...] the first of the year. I updated JOES Fernández with this information. [facility] Orders Onlyon 04-16-2024 Orders Only [id number] Nato Palacios 1970 F Date Provider Department Center 04/16/[id number] VAZQUEZ [facility] SURG [facility] Family History Family history unknown: Yes [facility] 36on 04-13-2024 36 Patient is scheduled for neck surgery and is having increasing pain radiating down and she would like to know what she should do since dr orozco is booked until her surgery, [facility] 36on 04-09-2024 36 Approving, but needs appt for additional refills. [facility] 36on 03-09-2024 36 Approving, but needs appt for additional refills. [facility] Follow-Upon 03-09-2024 Follow-Up [id number] Nato Palacios 1970 F Provider Department Center 03/09/2024 266-LAINE OROZCO [facility] Family History Family history unknown: Yes Level of Service:88675 MT OFFICE/OUTPATIENT ESTABLISHED MOD MDM 30 MIN (GC) Reason for Visit and Comments: Pain [136] - New patient [facility] 36on 03-07-2024 36 Patient called stating that she was told that she would need a cervical revision by Dr Orozco. Patient would like to schedule this surgery after eddie if possible. Patient also states that she has headaches 6 days a week all day long due to the pain. Patient is asking for referral to pain management in [place] until she can have the surgery. Patient requesting call back. Please advise. Thank you. Normal [facility] ALL T3 FREEon 03-07-2024 Free T3 [Mass/Vol] 2.08 pg/mL Low 2.18 - 3. 98 pg/mL [facility] ALL THYROID STIM HORMONEon 0 03-07-2024 TSH Qn 14.169 m[IU]/L High [facility] No Panel Informationon 03-07 Interpretation and review of laboratory results Abnormal [facility] Healthcar e CT CERVICAL SPINE WO CONTRAS Ton 02-14-2023 [...] Maddie Simpson MD 02/13/23 Final result Normal [facility] Covid-19 PCR (C[facility])on 06-27 SARS-CoV-2 (COVID-19) RNA RENÉ+probe Ql (Unsp spec) Not detected Normal NOT DETECTED [facility] Comment on above: Result Comment: This test is not yet approved or cleared by the [place] FDA. When there are no FDA-approved or cleared tests available, and other criteria are met, FDA can make tests available under an emergency access mechanism called an Emergency Use Authorization (EUA). The EUA for this test is supported by the [place] of Health and Human Service's (HHS's) declaration [...] consistent with SARS-CoV-2. Performed By: #### C VDTBH #### [facility] [address] [place] [address] Dr. Radha Suarez INFLUENZA A AND B [facility] 07-15 [facility] SEE BELOW Normal [facility] Comment on above: Result Comment: Nega tive for Flu A protein angiten. Infection due to Flu A cannot be ruled out. Flu A angiten in the sample may be below the detection limit of the test. Performed By: #### C VDTBH #### [facility] [address] [place] [address] Dr. Radha Suarez [facility] SEE BELOW Normal [facility] Comment on above: Result Comment: Nega tive for Flu B protein antigen. Infection due to Flu B cannot be ruled out. Flu B antigen in the sample may be below the detection limit of the test. Performed By: #### C VDTBH #### [facility] [address] [place] [address] Dr. Radha Suarez INFLUENZA A AG Negative Normal NEGATIVE SEE COMMENT [facility] Comment on above: Performed By: #### C VDTBH #### [facility] [address] [place] [address] Dr. Radha Suarez INFLUENZA B AG Negative Normal NEGATIVE SEE COMMENT [facility] Comment on above: Performed By: #### C VDTBH #### [facility] [address] [place] [address] Dr. Radha Suarez CULTURE WOUNDon 06-01-2022 CULTURE WOUND Isolate 1 Pseudomonas aeruginosa Light growth of ORGANISM 1 Pseudomonas aeruginosa ANTIBIOTIC M.I.C RX STATUS Piperacillin/Tazobac iglesias <=4 S F Ceftazidime <=1 S F Imipenem 1 S F Amikacin 4 S F Gentamicin <=1 S F Tobramycin <=1 S F Ciprofloxacin <=0.25 S F Levofloxacin <=0.12 S F Normal [facility] Comment on above: Performed By: #### C VDTBH #### [facility] [address] [place] [address] Dr. Radha Suarez CBC AUTO DIFFon 04-16-2022 BASO # 0.1 103/ul Normal 0.0-0.1 [facility] Comment on above: Performed By: #### C BC #### [facility] [address] [place] [address] Dr. Radha Suarez Basophils/100 WBC (Bld) 0.8 % Normal 0.2-2.0 [facility] Comment on above: Performed By: #### C BC #### [facility] [address] [place] [address] Dr. Radha Suarez EO # 0.1 103/ul Normal 0.0-0.7 [facility] Comment on above: Performed By: #### C BC #### [facility] [address] [place] [address] Dr. Radha Suarez Eosinophils/100 WBC (Bld) 0.8 % Critically low 0.9-7.0 [facility] Comment on above: Performed By: #### C BC #### [facility] [address] [place] [address] Dr. Radha Suarez Erythrocyte distribution width (RBC) [Ratio] 14.3 % Normal 11.0-15.0 [facility] Comment on above: Performed By: #### C BC #### [facility] [address] [place] [address] Dr. Radha Suarez Hematocrit (Bld) [Volume fraction] 44.4 % Normal 36.0-48.0 [facility] Comment on above: Performed By: #### C BC #### [facility] [address] [address] [address] Radha Suarez Hemoglobin (Bld) [Mass/Vol] 14.6 g/dL Normal 12.0-16.0 [facility] Comment on above: Performed By: #### C BC #### [facility] [address] [address] [address] Radha Suarez IG # 0.02 10e3/ul Normal 0.00-0.03 [facility] Comment on above: Performed By: #### C BC #### [facility] [address] [place] [address] Dr. Radha Suarez IG % 0.3 % Normal 0.0-0.5 [facility] Comment on above: Performed By: #### C BC #### [facility] [address] [place] [address] Dr. Radha Suarez LYMPH # 2.4 103/ul Normal 1.2-3.8 [facility] Comment on above: Performed By: #### C BC #### [facility] [address] [place] [address] Dr. Radha Suarez Lymphocytes/100 WBC (Bld) 31.6 % Normal 20.5-60.0 [facility] Comment on above: Performed By: #### C BC #### [facility] [address] [place] [address] Dr. Radha Suarez MANUAL DIFF REQ NO Normal [facility] Comment on above: Performed By: #### C BC #### [facility] [address] [place] [address] Dr. Radha Suarez MCH (RBC) [Entitic mass] 30.5 pg Normal 26.7-34.0 [facility] Comment on above: Performed By: #### C BC #### [facility] [address] [place] [address] Dr. Radha Suarez MCHC (RBC) [Mass/Vol] 32.9 g/dL Normal 29.9-35.2 [facility] Comment on above: Performed By: #### C BC #### [facility] [address] [address] [address] Radha Suarez MCV (RBC) [Entitic vol] 92.9 fL Normal 81.0-99.0 [facility] Comment on above: Performed By: #### C BC #### [facility] [address] [address] [address] Radha Suarez MONO # 0.6 103/ul Normal 0.3-0.8 [facility] Comment on above: Performed By: #### C BC #### [facility] [address] [address] [address] Radha Suarez Monocytes/100 WBC (Bld) 7.8 % Normal 1.7-12.0 [facility] Comment on above: Performed By: #### C BC #### [facility] [address] [place] [address] Dr. Radha Suarez NEUT # 4.5 103/ul Normal 1.4-6.5 [facility] Comment on above: Performed By: #### C BC #### [facility] [address] [place] [address] Dr. Radha Suarez Neutrophils/100 WBC (Bld) 58.7 % Normal 43.0-75.0 [facility] Comment on above: Performed By: #### C BC #### [facility] [address] [place] [address] Dr. Radha Suarez Platelet mean volume (Bld) [Entitic vol] 9.1 fL Critically low 9.5-13.5 [facility] Comment on above: Performed By: #### C BC #### [facility] [address] [place] [address] Dr. Radha Suarez PLT 346 103/ul Normal 150-450 [facility] Comment on above: Performed By: #### C BC #### [facility] [address] [place] [address] Dr. Radha Suarez RBC 4.78 106/ul Normal 4.20-5.40 [facility] Comment on above: Performed By: #### C BC #### [facility] [address] [address] [address] Radha Suarez WBC 7.6 103/ul Normal 4.0-11.0 [facility] Comment on above: Performed By: #### C BC #### [facility] [address] [place] [address] Dr. Radha Suarez FREE T3on 04-16-2022 FREE T3 2.50 pg/mlL Normal 2.18-3.98 [facility] Comment on above: Performed By: #### C BC #### [facility] [address] [place] [address] Dr. Radha Suarez FREE T4on 04-16-2022 Free T4 [Mass/Vol] 1.33 ng/dL Normal 0.76-1.46 The [facility] Comment on above: Performed By: #### F T4 #### [facility] [address] [place] [address] Dr. Radha Suarez PROF CHEM 8 (BAS METB)on Anion gap [Moles/Vol] 8.7 mmol/L Normal [facility] Comment on above: Performed By: #### C BC #### [facility] [address] [place] [address] Dr. Radha Suarez Calcium [Mass/Vol] 9.4 mg/dL Normal 8.5-10.1 [facility] Comment on above: Performed By: #### C BC #### [facility] [address] [place] [address] Dr. Radha Suarez Chloride [Moles/Vol] 101 mmol/L Normal 98-107 [facility] Comment on above: Performed By: #### C BC #### [facility] [address] [place] [address] Dr. Radha Suarez CO2 [Moles/Vol] 30.5 mmol/L Normal 21.0-32.0 The [facility] Comment on above: Performed By: #### C BC #### [facility] [address] [place] [address] Dr. Radha Suarez Creatinine [Mass/Vol] 0.72 mg/dL Normal 0.55-1.02 [facility] Comment on above: Performed By: #### C BC #### [facility] [address] [address] [address] Radha Suarez EGFR-AF KAZAKH >60 Normal >=60 [facility] Comment on above: Performed By: #### C BC #### [facility] [address] [address] [address] Radha Suarez EGFR-NON AF KAZAKH >60 Normal >=60 [facility] Comment on above: Performed By: #### C BC #### [facility] [address] [address] [address] Radha Suarez Glucose [Mass/Vol] 99 mg/dL Normal 74-106 [facility] Comment on above: Performed By: #### C BC #### [facility] [address] [place] [address] Dr. Radha Suarez Potassium [Moles/Vol] 4.2 mmol/L Normal 3.5-5.1 [facility] Comment on above: Performed By: #### C BC #### [facility] [address] [place] [address] Dr. Radha Suarez Sodium [Moles/Vol] 136 mmol/L Normal 136-145 [facility] Comment on above: Performed By: #### C BC #### [facility] [address] [place] [address] Dr. Radha Suarez Urea nitrogen [Mass/Vol] 12.0 mg/dL Normal 7.0-18.0 [facility] Comment on above: Performed By: #### C BC #### [facility] [address] [place] [address] Dr. Radha Suarez Urea nitrogen/Creatinine [Mass ratio] 16.7 mg/mg Normal [facility] Comment on above: Performed By: #### C BC #### [facility] [address] [place] [address] Dr. Radha Suarez PROTIMEon 04-16-2022 INR Coag (PPP) [Relative time] 0.98 {INR} Normal [facility] Comment on above: Performed By: #### P TT, PT #### [facility] [address] [place] [address] Dr. Radha Suarez INR GUIDELINES SEE BELOW Normal [facility] Comment on above: Result Comment: DEVI RED INR: 2.0 - 3.0 CONDITIONS NOT LISTED BELOW 2.5 - 3.5 FOR PROSTHETIC HEART VALVE REPLACEMENT 2.5 - 3.5 RECURRENT THROMBOSIS Performed By: #### P TT, PT #### [facility] [address] [place] [address] Dr. Radha Suarez PT Coag (PPP) [Time] 10.6 s Normal 9.0-11.6 [facility] Comment on above: Performed By: #### P TT, PT #### [facility] [address] [place] [address] Dr. Radha Suarez PTTon 04-16-2022 aPTT Coag (Bld) [Time] 27.9 s Normal 22.3-36.2 [facility] Comment on above: Performed By: #### P TT, PT #### [facility] [address] [place] [address] Dr. Radha Suarez TSHon 04-16-2022 TSH 0.206 uIU/mL Critically low 0.358-3.740 [facility] Comment on above: Performed By: #### C BC #### [facility] [address] [place] [address] Dr. Radha Suarez FREE T4on 03-08-2022 Free T4 [Mass/Vol] 1.59 ng/dL Critically high 0.76-1.46 [facility] Comment on above: Performed By: #### C VDTBH #### [facility] [address] [place] [address] Dr. Radha Suarez TSHon 03-08-2022 TSH 0.107 uIU/mL Critically low 0.358-3.740 [facility] Comment on above: Performed By: #### C VDTBH #### [facility] [address] [place] [address] Dr. Radha Suarez LUMBAR SPINE 4 OR 5 VWSon LUMBAR SPINE 4 OR 5 [facility] Department of Radiology [address] [place] [id number] Patient Name: NATO PALACIOS : 1970 Sex: F Age: Race: White Pt. Location: 84 Patient Status: D Ordered Date: 03/03/2022 2:10:00 PM Completed Date: 03/03/2022 02:31 PM Requesting Provider: LAINE OROZCO Attending Provider: LAINE OROZCO Report Copy To: Signs & Symptoms: M54.50 Low back pain, unspecified I10 History: [place] Comments: Evaluate Exam: LUMBAR SPINE 4 OR [...] report. Electronically signed: Anjum Arizmendi. Transcribed by: [email or web address], User Resident: ANJUM CLIFTON Electronically Signed by: ANJUM ARIZMENDI @ 03/04/2022 09:13 AM I personally read this/these film(s) with this resident Normal [facility] Comment on above: Order Comment: Evalu ate CBC AUTO DIFFon 02-04-2022 BASO # 0.0 103/ul Normal 0.0-0.1 [facility] Comment on above: Performed By: #### C BC #### [facility] [address] [place] [address] Dr. Radha Suarez Basophils/100 WBC (Bld) 0.1 % Critically low 0.2-2.0 [facility] Comment on above: Performed By: #### C BC #### [facility] [address] [place] [address] Dr. Radha Suarez EO # 0.0 103/ul Normal 0.0-0.7 [facility] Comment on above: Performed By: #### C BC #### [facility] [address] [place] [address] Dr. Radha Suarez Eosinophils/100 WBC (Bld) 0.1 % Critically low 0.9-7.0 [facility] Comment on above: Performed By: #### C BC #### [facility] [address] [place] [address] Dr. Radha uSarez Erythrocyte distribution width (RBC) [Ratio] 14.4 % Normal 11.0-15.0 [facility] Comment on above: Performed By: #### C BC #### [facility] [address] [place] [address] Dr. Radha Suarez Hematocrit (Bld) [Volume fraction] 41.1 % Normal 36.0-48.0 [facility] Comment on above: Performed By: #### C BC #### [facility] [address] [place] [address] Dr. Radha Suarez Hemoglobin (Bld) [Mass/Vol] 13.3 g/dL Normal 12.0-16.0 [facility] Comment on above: Performed By: #### C BC #### [facility] [address] [place] [address] Dr. Radha Suarez IG # 0.09 10e3/ul Critically high 0.00-0.03 [facility] Comment on above: Performed By: #### C BC #### [facility] [address] [place] [address] Dr. Radha Suarez IG % 0.6 % Critically high 0.0-0.5 [facility] Comment on above: Performed By: #### C BC #### [facility] [address] [place] [address] Dr. Radha Suarez LYMPH # 1.1 103/ul Critically low 1.2-3.[address] [facility] Comment on above: Performed By: #### C BC #### [facility] [address] [place] [address] Dr. Radha Suarez Lymphocytes/100 WBC (Bld) 7.6 % Critically low 20.5-60.0 [facility] Comment on above: Performed By: #### C BC #### [facility] [address] [place] [address] Dr. Radha Suarez MANUAL DIFF REQ NO Normal [facility] Comment on above: Performed By: #### C BC #### [facility] [address] [place] [address] Dr. Radha Suarez MCH (RBC) [Entitic mass] 30.5 pg Normal 26.7-34.0 [facility] Comment on above: Performed By: #### C BC #### [facility] [address] [place] [address] Dr. Radha Suarez MCHC (RBC) [Mass/Vol] 32.4 g/dL Normal 29.9-35.2 [facility] Comment on above: Performed By: #### C BC #### [facility] [address] [place] [address] Dr. Radha Suarez MCV (RBC) [Entitic vol] 94.3 fL Normal 81.0-99.0 [facility] Comment on above: Performed By: #### C BC #### [facility] [address] [place] [address] Dr. Radha Suarez MONO # 0.4 103/ul Normal 0.3-0.8 [facility] Comment on above: Performed By: #### C BC #### [facility] [address] [place] [address] Dr. Radha Suarez Monocytes/100 WBC (Bld) 2.4 % Normal 1.7-12.0 [facility] Comment on above: Performed By: #### C BC #### [facility] [address] [place] [address] Dr. Radha Suarez NEUT # 13.2 103/ul Critically high 1.4-6.5 [facility] Comment on above: Performed By: #### C BC #### [facility] [address] [place] [address] Dr. Radha Suarez Neutrophils/100 WBC (Bld) 89.2 % Critically high 43.0-75.0 [facility] Comment on above: Performed By: #### C BC #### [facility] [address] [place] [address] Dr. Radha Suarez Platelet mean volume (Bld) [Entitic vol] 9.3 fL Critically low 9.5-13.5 [facility] Comment on above: Performed By: #### C BC #### [facility] [address] [place] [address] Dr. Radha Suarez PLT 358 103/ul Normal 150-450 [facility] Comment on above: Performed By: #### C BC #### [facility] [address] [place] [address] Dr. Radha Suarez RBC 4.36 106/ul Normal 4.20-5.40 [facility] Comment on above: Performed By: #### C BC #### [facility] [address] [place] [address] Dr. Radha Suarez WBC 14.8 103/ul Critically high 4.0-11.0 [facility] Comment on above: Performed By: #### C BC #### [facility] [address] [address] [address] Radha Suarez PROF CHEM 8 (BAS METB)on Anion gap [Moles/Vol] 10.7 mmol/L Normal [facility] Comment on above: Performed By: #### B MP #### [facility] [address] [address] [address] Radha Suarez Calcium [Mass/Vol] 8.6 mg/dL Normal 8.5-10.1 [facility] Comment on above: Performed By: #### B MP #### [facility] [address] [place] [address] Dr. Radha Suarez Chloride [Moles/Vol] 103 mmol/L Normal 98-107 [facility] Comment on above: Performed By: #### B MP #### [facility] [address] [place] [address] Dr. Radha Suarez CO2 [Moles/Vol] 27.2 mmol/L Normal 21.0-32.0 [facility] Comment on above: Performed By: #### B MP #### [facility] [address] [place] [address] Dr. Radha Suarez Creatinine [Mass/Vol] 0.82 mg/dL Normal 0.55-1.02 [facility] Comment on above: Performed By: #### B MP #### [facility] [address] [place] [address] Dr. Radha Suarez EGFR-AF KAZAKH >60 Normal >=60 [facility] Comment on above: Performed By: #### B MP #### [facility] [address] [address] [address] Radha Suarez EGFR-NON AF KAZAKH >60 Normal >=60 [facility] Comment on above: Performed By: #### B MP #### [facility] [address] [place] [address] Dr. Radha Suarez Glucose [Mass/Vol] 158 mg/dL Critically high 74-106 [facility] Comment on above: Performed By: #### B MP #### [facility] [address] [address] [address] Radha Suarez Potassium [Moles/Vol] 3.9 mmol/L Normal 3.5-5.1 [facility] Comment on above: Performed By: #### B MP #### [facility] [address] [address] [address] Radha Suarez Sodium [Moles/Vol] 137 mmol/L Normal 136-145 [facility] Comment on above: Performed By: #### B MP #### [facility] [address] [address] [address] Radha Suarez Urea nitrogen [Mass/Vol] 16.0 mg/dL Normal 7.0-18.0 [facility] Comment on above: Performed By: #### B MP #### [facility] [address] [place] [address] Dr. Radha Suarez Urea nitrogen/Creatinine [Mass ratio] 19.5 mg/mg Normal [facility] Comment on above: Performed By: #### B MP #### [facility] [address] [place] [address] Dr. Radha Suarez CBC AUTO DIFFon 02-03-2022 BASO # 0.0 103/ul Normal 0.0-0.1 [facility] Comment on above: Performed By: #### C VDTBH #### [facility] [address] [place] [address] Dr. Radha Suarez Basophils/100 WBC (Bld) 0.3 % Normal 0.2-2.0 [facility] Comment on above: Performed By: #### C VDTBH #### [facility] [address] [place] [address] Dr. Radha Suarez EO # 0.0 103/ul Normal 0.0-0.7 [facility] Comment on above: Performed By: #### C VDTBH #### [facility] [address] [address] [address] Radha Suarez Eosinophils/100 WBC (Bld) 0.0 % Critically low 0.9-7.0 [facility] Comment on above: Performed By: #### C VDTBH #### [facility] [address] [place] [address] Dr. Radha Suarez Erythrocyte distribution width (RBC) [Ratio] 14.2 % Normal 11.0-15.0 [facility] Comment on above: Performed By: #### C VDTBH #### [facility] [address] [place] [address] Dr. Radha Suarez Hematocrit (Bld) [Volume fraction] 43.2 % Normal 36.0-48.0 [facility] Comment on above: Performed By: #### C VDTBH #### [facility] [address] [place] [address] Dr. Radha Suarez Hemoglobin (Bld) [Mass/Vol] 13.8 g/dL Normal 12.0-16.0 [facility] Comment on above: Performed By: #### C VDTBH #### [facility] [address] [place] [address] Dr. Radha Suarez IG # 0.02 10e3/ul Normal 0.00-0.03 [facility] Comment on above: Performed By: #### C VDTBH #### [facility] [address] [place] [address] Dr. Radha Suarez IG % 0.3 % Normal 0.0-0.5 [facility] Comment on above: Performed By: #### C VDTBH #### [facility] [address] [place] [address] Dr. Radha Suarez LYMPH # 0.7 103/ul Critically low 1.2-3.8 [facility] Comment on above: Performed By: #### C VDTBH #### [facility] [address] [place] [address] Dr. Radha Suarez Lymphocytes/100 WBC (Bld) 9.8 % Critically low 20.5-60.0 [facility] Comment on above: Performed By: #### C VDTBH #### [facility] [address] [place] [address] Dr. Radha Suarez MANUAL DIFF REQ NO Normal [facility] Comment on above: Performed By: #### C VDTBH #### [facility] [address] [place] [address] Dr. Radha Suarez MCH (RBC) [Entitic mass] 29.8 pg Normal 26.7-34.0 [facility] Comment on above: Performed By: #### C VDTBH #### [facility] [address] [place] [address] Dr. Radha Suarez MCHC (RBC) [Mass/Vol] 31.9 g/dL Normal 29.9-35.2 [facility] Comment on above: Performed By: #### C VDTBH #### [facility] [address] [place] [address] Dr. Radha Suarez MCV (RBC) [Entitic vol] 93.3 fL Normal 81.0-99.0 [facility] Comment on above: Performed By: #### C VDTBH #### [facility] [address] [place] [address] Dr. Radha Suarez MONO # 0.1 103/ul Critically low 0.3-0.8 [facility] Comment on above: Performed By: #### C VDTBH #### [facility] [address] [place] [address] Dr. Radha Suarez Monocytes/100 WBC (Bld) 0.8 % Critically low 1.7-12.0 [facility] Comment on above: Performed By: #### C VDTBH #### [facility] [address] [place] [address] Dr. Radha Suarez NEUT # 6.6 103/ul Critically high 1.4-6.5 [facility] Comment on above: Performed By: #### C VDTBH #### [facility] [address] [place] [address] Dr. Radha Suarez Neutrophils/100 WBC (Bld) 88.8 % Critically high 43.0-75.0 [facility] Comment on above: Performed By: #### C VDTBH #### [facility] [address] [place] [address] Dr. Radha Suarez Platelet mean volume (Bld) [Entitic vol] 9.2 fL Critically low 9.5-13.5 [facility] Comment on above: Performed By: #### C VDTBH #### [facility] [address] [place] [address] Dr. Radha Suarez PLT 368 103/ul Normal 150-450 [facility] Comment on above: Performed By: #### C VDTBH #### [facility] [address] [place] [address] Dr. Radha Suarez RBC 4.63 106/ul Normal 4.20-5.40 [facility] Comment on above: Performed By: #### C VDTBH #### [facility] [address] [place] [address] Dr. Radha Suarez WBC 7.4 103/ul Normal 4.0-11.0 [facility] Comment on above: Performed By: #### C VDTBH #### [facility] [address] [place] [address] Dr. Radha Suarez BASO # 0.0 103/ul Normal 0.0-0.1 [facility] Comment on above: Performed By: #### C BC #### [facility] [address] [place] [address] Dr. Radha Suarez Basophils/100 WBC (Bld) 0.2 % Normal 0.2-2.0 [facility] Comment on above: Performed By: #### C BC #### [facility] [address] [place] [address] Dr. Radha Suarez EO # 0.0 103/ul Normal 0.0-0.7 [facility] Comment on above: Performed By: #### C BC #### [facility] [address] [place] [address] Dr. Radha Suarez Eosinophils/100 WBC (Bld) 0.2 % Critically low 0.9-7.0 [facility] Comment on above: Performed By: #### C BC #### [facility] [address] [place] [address] Dr. Radha Suarez Erythrocyte distribution width (RBC) [Ratio] 14.3 % Normal 11.0-15.0 [facility] Comment on above: Performed By: #### C BC #### [facility] [address] [place] [address] Dr. Radha Suarez Hematocrit (Bld) [Volume fraction] 46.6 % Normal 36.0-48.0 [facility] Comment on above: Performed By: #### C BC #### [facility] [address] [place] [address] Dr. Radha Suarez Hemoglobin (Bld) [Mass/Vol] 15.5 g/dL Normal 12.0-16.0 [facility] Comment on above: Performed By: #### C BC #### [facility] [address] [place] [address] Dr. Radha Suarez IG # 0.06 10e3/ul Critically high 0.00-0.03 [facility] Comment on above: Performed By: #### C BC #### [facility] [address] [place] [address] Dr. Radha Suarez IG % 0.5 % Normal 0.0-0.5 [facility] Comment on above: Performed By: #### C BC #### [facility] [address] [place] [address] Dr. Radha Suarez LYMPH # 0.9 103/ul Critically low 1.2-3.8 [facility] Comment on above: Performed By: #### C BC #### [facility] Laboratory [address] [place] [address] Dr. Radha Suarez Lymphocytes/100 WBC (Bld) 7.2 % Critically low 20.5-60.0 [facility] Comment on above: Performed By: #### C BC #### [facility] [address] [place] [address] Dr. Radha Suarez MANUAL DIFF REQ NO Normal [facility] Comment on above: Performed By: #### C BC #### [facility] [address] [place] [address] Dr. Radha Suarez MCH (RBC) [Entitic mass] 30.7 pg Normal 26.7-34.0 [facility] Comment on above: Performed By: #### C BC #### [facility] [address] [place] [address] Dr. Radha Suarez MCHC (RBC) [Mass/Vol] 33.3 g/dL Normal 29.9-35.2 [facility] Comment on above: Performed By: #### C BC #### [facility] [address] [place] [address] Dr. Radha Suarez MCV (RBC) [Entitic vol] 92.3 fL Normal 81.0-99.0 [facility] Comment on above: Performed By: #### C BC #### [facility] [address] [place] [address] Dr. Radha Suarez MONO # 0.1 103/ul Critically low 0.3-0.8 [facility] Comment on above: Performed By: #### C BC #### [facility] [address] [place] [address] Dr. Radha Suarez Monocytes/100 WBC (Bld) 0.7 % Critically low 1.7-12.0 [facility] Comment on above: Performed By: #### C BC #### [facility] [address] [place] [address] Dr. Radha Suarez NEUT # 11.7 103/ul Critically high 1.4-6.5 [facility] Comment on above: Performed By: #### C BC #### [facility] [address] [place] [address] Dr. Radha Suarez Neutrophils/100 WBC (Bld) 91.2 % Critically high 43.0-75.0 [facility] Comment on above: Performed By: #### C BC #### [facility] [address] [place] [address] Dr. Radha Suarez Platelet mean volume (Bld) [Entitic vol] 9.1 fL Critically low 9.5-13.5 [facility] Comment on above: Performed By: #### C BC #### [facility] [address] [place] [address] Dr. Radha Suarez PLT 394 103/ul Normal 150-450 [facility] Comment on above: Performed By: #### C BC #### [facility] [address] [place], [place] [address] Dr. Radha Suarez RBC 5.05 106/ul Normal 4.20-5.40 [facility] Comment on above: Performed By: #### C BC #### [facility] [address] [place], [place] [address] Dr. Radha Suarez WBC 12.8 103/ul Critically high 4.0-11.0 [facility] Comment on above: Performed By: #### C BC #### [facility] [address] [place], [place] [address] LSPINE WO CONon [...] NAOMIE THEODORE Date: 2022-02-03 09:33 Normal [facility] PROF 14(COMP METB)on 022 Albumin [Mass/Vol] 3.9 g/dL Normal 3.4-5.0 [facility] Comment on above: Performed By: #### C VDTBH #### [facility] [address] [place] [address] [address] Radha Suarez Albumin/Globulin [Mass ratio] 1.0 {ratio} Normal [facility] Comment on above: Performed By: #### C VDTBH #### [facility] [address] [address] [address] Radha Suarez ALP [Catalytic activity/Vol] 117 U/L Critically high 46-116 [facility] Comment on above: Performed By: #### C VDTBH #### [facility] [address] [place] [address] Dr. Radha Suarez ALT [Catalytic activity/Vol] 42 U/L Normal 14-59 [facility] Comment on above: Performed By: #### C VDTBH #### [facility] [address] [address] [address] Radha Suarez Anion gap [Moles/Vol] 16.0 mmol/L Normal [facility] Comment on above: Performed By: #### C VDTBH #### [facility] [address] [place] [address] Dr. Radha Suarez AST [Catalytic activity/Vol] 25 U/L Normal 15-37 [facility] Comment on above: Performed By: #### C VDTBH #### [facility] [address] [address] [address] Radha Suarez Bilirubin [Mass/Vol] 0.2 mg/dL Normal 0.2-1.0 [facility] Comment on above: Performed By: #### C VDTBH #### [facility] [address] [address] [address] Radha Suarez Calcium [Mass/Vol] 9.6 mg/dL Normal 8.5-10.1 [facility] Comment on above: Performed By: #### C VDTBH #### [facility] [address] [address] [address] Radha Suarez Chloride [Moles/Vol] 104 mmol/L Normal 98-107 [facility] Comment on above: Performed By: #### C VDTBH #### [facility] [address] [place] [address] Dr. Radha Suarez CO2 [Moles/Vol] 26.0 mmol/L Normal 21.0-32.0 [facility] Comment on above: Performed By: #### C VDTBH #### [facility] [address] [place] [address] Dr. Radha Suarez Creatinine [Mass/Vol] 0.82 mg/dL Normal 0.55-1.02 [facility] Comment on above: Performed By: #### C VDTBH #### [facility] [address] [place] [address] Dr. Radha Suarez EGFR-AF KAZAKH >60 Normal >=60 [facility] Comment on above: Performed By: #### C VDTBH #### [facility] [address] [place] [address] Dr. Radha Suarez EGFR-NON AF KAZAKH >60 Normal >=60 [facility] Comment on above: Performed By: #### C VDTBH #### [facility] [address] [place] [address] Dr. Radha Suarez Globulin (S) [Mass/Vol] 3.8 g/dL Normal [facility] Comment on above: Performed By: #### C VDTBH #### [facility] [address] [address] [address] Radha Suarez Glucose [Mass/Vol] 153 mg/dL Critically high 74-106 [facility] Comment on above: Performed By: #### C VDTBH #### [facility] [address] [place] [address] Dr. Radha Suarez Potassium [Moles/Vol] 4.0 mmol/L Normal 3.5-5.1 [facility] Comment on above: Performed By: #### C VDTBH #### [facility] [address] [place] [address] Dr. Radha Suarez Protein [Mass/Vol] 7.7 g/dL Normal 6.4-8.2 [facility] Comment on above: Performed By: #### C VDTBH #### [facility] [address] [place] [address] Dr. Radha Suarez Sodium [Moles/Vol] 142 mmol/L Normal 136-145 [facility] Comment on above: Performed By: #### C VDTBH #### [facility] [address] [place] [address] Dr. Radha Suarez Urea nitrogen [Mass/Vol] 10.0 mg/dL Normal 7.0-18.0 [facility] Comment on above: Performed By: #### C VDTBH #### [facility] [address] [place] [address] Dr. Radha Suarez Urea nitrogen/Creatinine [Mass ratio] 12.2 mg/mg Normal [facility] Comment on above: Performed By: #### C VDTBH #### [facility] [address] [place] [address] Dr. Radha Suarez PROF CHEM 8 (BAS METB)on Anion gap [Moles/Vol] 14.9 mmol/L Normal [facility] Comment on above: Performed By: #### C VDTBH #### [facility] [address] [place] [address] Dr. Radha Suarez Calcium [Mass/Vol] 9.3 mg/dL Normal 8.5-10.1 [facility] Comment on above: Result Comment: resu lt to follow Previously reported as: 9.1 On 02/03/2022 09:13 By [email or web address] Performed By: #### C VDTBH #### [facility] [address] [place] [address] Dr. Radha Suarez Chloride [Moles/Vol] 104 mmol/L Normal 98-107 [facility] Comment on above: Performed By: #### C VDTBH #### [facility] [address] [place] [address] Dr. Radha Suarez CO2 [Moles/Vol] 25.7 mmol/L Normal 21.0-32.0 [facility] Comment on above: Performed By: #### C VDTBH #### [facility] [address] [place] [address] Dr. Radha Suarez Creatinine [Mass/Vol] 0.93 mg/dL Normal 0.55-1.02 [facility] Comment on above: Performed By: #### C VDTBH #### [facility] [address] [place] [address] [address] Radha Suarez EGFR-AF KAZAKH >60 Normal >=60 [facility] Comment on above: Performed By: #### C VDTBH #### [facility] [address] [place] [address] Dr. Radha Suarez EGFR-NON AF KAZAKH >60 Normal >=60 [facility] Comment on above: Performed By: #### C VDTBH #### [facility] [address] [place] [address] Dr. Radha Suarez Glucose [Mass/Vol] 173 mg/dL Critically high 74-106 [facility] Comment on above: Performed By: #### C VDTBH #### [facility] [address] [place] [address] [address] Radha Suarez Potassium [Moles/Vol] 3.6 mmol/L Normal 3.5-5.1 [facility] Comment on above: Performed By: #### C VDTBH #### [facility] [address] [place] [address] [address] Radha Suarez Sodium [Moles/Vol] 141 mmol/L Normal 136-145 [facility] Comment on above: Performed By: #### C VDTBH #### [facility] [address] [place] [address] [address] Radha Suarez Urea nitrogen [Mass/Vol] 12.0 mg/dL Normal 7.0-18.0 [facility] Comment on above: Performed By: #### C VDTBH #### [facility] [address] [place] [address] [address] Radha Suarez Urea nitrogen/Creatinine [Mass ratio] 12.9 mg/mg Normal [facility] Comment on above: Performed By: #### C VDTBH #### [facility] [address] [place] [address] Dr. Radha Suarez XR CHEST 1 Von [...] NAOMIE VELASQUEZ Date: 2022-02-02 22:36 Normal [facility] Covid-19 PCR ([facility])on SARS-CoV-2 (COVID-19) RNA RENÉ+probe Ql (Unsp spec) Not detected Normal NOT DETECTED [facility] Comment on above: Result Comment: When [...] for this test is supported by the Plant Attendant Or Assistant Operator of Health and Human Service's declaration that [...] used). Performed By: #### C BC #### [facility] [address] [place] [address] Dr. Radha Suarez BNPon 01-14-2022 Natriuretic peptide B (Bld) [Mass/Vol] 86.0 pg/mL Normal <=900.0 [facility] Comment on above: Performed By: #### B MANAGER CONCRETE, CMP #### [facility] [address] [place], [place] [id number] Dr. Radha Suarez CBC AUTO DIFFon 01-14-2022 BASO # 0.1 103/ul Normal 0.0-0.1 [facility] Comment on above: Performed By: #### C VDTBH #### [facility] [address] [place] [address] [address] Radha Suarez Basophils/100 WBC (Bld) 0.6 % Normal 0.2-2.0 [facility] Comment on above: Performed By: #### C VDTBH #### [facility] [address] [place] [address] [address] Radha Suarez EO # 0.1 103/ul Normal 0.0-0.7 [facility] Comment on above: Performed By: #### C VDTBH #### [facility] [address] [place] [address] [address] Radha Suarez Eosinophils/100 WBC (Bld) 1.1 % Normal 0.9-7.0 [facility] Comment on above: Performed By: #### C VDTBH #### [facility] [address] [place] [address] [address] Radha Suarez Erythrocyte distribution width (RBC) [Ratio] 14.6 % Normal 11.0-15.0 [facility] Comment on above: Performed By: #### C VDTBH #### [facility] [address] [place] [address] Dr. Radha Suarez Hematocrit (Bld) [Volume fraction] 43.8 % Normal 36.0-48.0 [facility] Comment on above: Performed By: #### C VDTBH #### [facility] [address] [place] [address] Dr. Radha Suarez Hemoglobin (Bld) [Mass/Vol] 14.7 g/dL Normal 12.0-16.0 [facility] Comment on above: Performed By: #### C VDTBH #### [facility] [address] [place] [address] Dr. Radha Suarez IG # 0.04 10e3/ul Critically high 0.00-0.03 [facility] Comment on above: Performed By: #### C VDTBH #### [facility] [address] [place] [address] [address] Radha Suarez IG % 0.4 % Normal 0.0-0.5 [facility] Comment on above: Performed By: #### C VDTBH #### [facility] [address] [place] [address] Dr. Radha Suarez LYMPH # 1.7 103/ul Normal 1.2-3.8 [facility] Comment on above: Performed By: #### C VDTBH #### [facility] [address] [place] [address] Dr. Radha Suarez Lymphocytes/100 WBC (Bld) 19.0 % Critically low 20.5-60.0 [facility] Comment on above: Performed By: #### C VDTBH #### [facility] [address] [place] [address] Dr. Radha Suarez MANUAL DIFF REQ NO Normal [facility] Comment on above: Performed By: #### C VDTBH #### [facility] [address] [place] [address] Dr. Radha Suarez MCH (RBC) [Entitic mass] 30.5 pg Normal 26.7-34.0 [facility] Comment on above: Performed By: #### C VDTBH #### [facility] [address] [place] [address] Dr. Radha Suarez MCHC (RBC) [Mass/Vol] 33.6 g/dL Normal 29.9-35.2 [facility] Comment on above: Performed By: #### C VDTBH #### [facility] [address] [place] [address] Dr. Radha Suarez MCV (RBC) [Entitic vol] 90.9 fL Normal 81.0-99.0 [facility] Comment on above: Performed By: #### C VDTBH #### [facility] [address] [place] [address] Dr. Radha Suarez MONO # 0.6 103/ul Normal 0.3-0.8 [facility] Comment on above: Performed By: #### C VDTBH #### [facility] [address] [place] [address] Dr. Radha Suarez Monocytes/100 WBC (Bld) 6.9 % Normal 1.7-12.0 [facility] Comment on above: Performed By: #### C VDTBH #### [facility] [address] [place] [address] Dr. Radha Suarez NEUT # 6.5 103/ul Normal 1.4-6.5 [facility] Comment on above: Performed By: #### C VDTBH #### [facility] [address] [place] [address] Dr. Radha Suarez Neutrophils/100 WBC (Bld) 72.0 % Normal 43.0-75.0 [facility] Comment on above: Performed By: #### C VDTBH #### [facility] [address] [place] [address] Dr. Radha Suarez Platelet mean volume (Bld) [Entitic vol] 8.9 fL Critically low 9.5-13.5 [facility] Comment on above: Performed By: #### C VDTBH #### [facility] [address] [place] [address] Dr. Radha Suarez PLT 324 103/ul Normal 150-450 [facility] Comment on above: Performed By: #### C VDTBH #### [facility] [address] [place] [address] Dr. Radha Suarez RBC 4.82 106/ul Normal 4.20-5.40 [facility] Comment on above: Performed By: #### C VDTBH #### [facility] [address] [place] [address] Dr. Radha Suarez WBC 9.0 103/ul Normal 4.0-11.0 [facility] Comment on above: Performed By: #### C VDTBH #### [facility] [address] [place] [address] Dr. Radha Suarez Covid-19 PCR ([facility])on 12-26 SARS-CoV-2 (COVID-19) RNA RENÉ+probe Ql (Unsp spec) Not detected Normal NOT DETECTED [facility] Comment on above: Result Comment: When [...] for this test is supported by the Plant Attendant Or Assistant Operator of Health and Human Service's declaration that [...] used). Performed By: #### C VDTB #### [facility] [address] [place] [address] Dr. Radha Suarez PROF 14(COMP METB)on 022 Albumin [Mass/Vol] 3.9 g/dL Normal 3.4-5.0 [facility] Comment on above: Performed By: #### B MANAGER CONCRETE, CMP #### [facility] [address] [place] [address] Dr. Radha Suarez Albumin/Globulin [Mass ratio] 1.0 {ratio} Normal [facility] Comment on above: Performed By: #### B MANAGER CONCRETE, CMP #### [facility] [address] [place] [address] Dr. Radha Suarez ALP [Catalytic activity/Vol] 96 U/L Normal 46-116 [facility] Comment on above: Performed By: #### B MANAGER CONCRETE, CMP #### [facility] [address] [place] [address] Dr. Radha Suarez ALT [Catalytic activity/Vol] 26 U/L Normal 14-59 [facility] Comment on above: Performed By: #### B MANAGER CONCRETE, CMP #### [facility] [address] [place] [address] Dr. Radha Suarez Anion gap [Moles/Vol] 13.6 mmol/L Normal [facility] Comment on above: Performed By: #### B MANAGER CONCRETE, CMP #### [facility] [address] [place] [address] Dr. Radha Suarez AST [Catalytic activity/Vol] 17 U/L Normal 15-37 [facility] Comment on above: Performed By: #### B MANAGER CONCRETE, CMP #### [facility] [address] [place] [address] Dr. Radha Suarez Bilirubin [Mass/Vol] 0.3 mg/dL Normal 0.2-1.0 [facility] Comment on above: Performed By: #### B MANAGER CONCRETE, CMP #### [facility] [address] [place] [address] Dr. Radha Suarez Calcium [Mass/Vol] 9.1 mg/dL Normal 8.5-10.1 [facility] Comment on above: Performed By: #### B MANAGER CONCRETE, CMP #### [facility] [address] [place] [address] Dr. Radha Suarez Chloride [Moles/Vol] 106 mmol/L Normal 98-107 [facility] Comment on above: Performed By: #### B MANAGER CONCRETE, CMP #### [facility] [address] [place] [address] Dr. Radha Suarez CO2 [Moles/Vol] 26.8 mmol/L Normal 21.0-32.0 [facility] Comment on above: Performed By: #### B MANAGER CONCRETE, CMP #### [facility] [address] [place] [address] Dr. Radha Suarez Creatinine [Mass/Vol] 0.94 mg/dL Normal 0.55-1.02 [facility] Comment on above: Performed By: #### B MANAGER CONCRETE, CMP #### [facility] [address] [place] [address] Dr. Radha Suarez EGFR-AF KAZAKH >60 Normal >=60 [facility] Comment on above: Performed By: #### B MANAGER CONCRETE, CMP #### [facility] [address] [place] [address] Dr. Radha Suarez EGFR-NON AF KAZAKH >60 Normal >=60 [facility] Comment on above: Performed By: #### B MANAGER CONCRETE, CMP #### [facility] [address] [place] [address] Dr. Radha Suarez Globulin (S) [Mass/Vol] 4.1 g/dL Normal [facility] Comment on above: Performed By: #### B MANAGER CONCRETE, CMP #### [facility] [address] [place] [address] Dr. Radha Suarez Glucose [Mass/Vol] 115 mg/dL Critically high 74-106 [facility] Comment on above: Performed By: #### B MANAGER CONCRETE, CMP #### [facility] [address] [place] [address] Dr. Radha Suarez Potassium [Moles/Vol] 3.4 mmol/L Critically low 3.5-5.1 [facility] Comment on above: Performed By: #### B MANAGER CONCRETE, CMP #### [facility] [address] [place] [address] Dr. Radha Suarez Protein [Mass/Vol] 8.0 g/dL Normal 6.4-8.2 [facility] Comment on above: Performed By: #### B MANAGER CONCRETE, CMP #### [facility] [address] [place] [address] Dr. Radha Suarez Sodium [Moles/Vol] 143 mmol/L Normal 136-145 [facility] Comment on above: Performed By: #### B MANAGER CONCRETE, CMP #### [facility] [address] [place] [address] Dr. Radha Suarez Urea nitrogen [Mass/Vol] 13.0 mg/dL Normal 7.0-18.0 [facility] Comment on above: Performed By: #### B MANAGER CONCRETE, CMP #### [facility] [address] [place] [address] Dr. Radha Suarez Urea nitrogen/Creatinine [Mass ratio] 13.8 mg/mg Normal [facility] Comment on above: Performed By: #### B MANAGER CONCRETE, CMP #### [facility] [address] [place] [address] Dr. Radha Suarez XR CHEST 1 Von [...] ZIA DESAI Date: 2022-01-14 20:21 Normal [facility] CBC AUTO DIFFon 01-13-2022 BASO # 0.0 103/ul Normal 0.0-0.1 [facility] Comment on above: Performed By: #### C VDTB #### [facility] [address] [place] [address] Dr. Radha Suarez Basophils/100 WBC (Bld) 0.5 % Normal 0.2-2.0 [facility] Comment on above: Performed By: #### C VDTBH #### [facility] [address] [address] [address] Radha Suarez EO # 0.1 103/ul Normal 0.0-0.7 [facility] Comment on above: Performed By: #### C VDTBH #### [facility] [address] [place] [address] Dr. Radha Suarez Eosinophils/100 WBC (Bld) 1.0 % Normal 0.9-7.0 [facility] Comment on above: Performed By: #### C VDTBH #### [facility] [address] [address] [address] Radha Suarez Erythrocyte distribution width (RBC) [Ratio] 14.6 % Normal 11.0-15.0 [facility] Comment on above: Performed By: #### C VDTBH #### [facility] [address] [place] [address] Dr. Radha Suarez Hematocrit (Bld) [Volume fraction] 42.3 % Normal 36.0-48.0 [facility] Comment on above: Performed By: #### C VDTBH #### [facility] [address] [place] [address] Dr. Radha Suarez Hemoglobin (Bld) [Mass/Vol] 13.7 g/dL Normal 12.0-16.0 [facility] Comment on above: Performed By: #### C VDTBH #### [facility] [address] [place] [address] Dr. Radha Suarez IG # 0.04 10e3/ul Critically high 0.00-0.03 [facility] Comment on above: Performed By: #### C VDTBH #### [facility] [address] [place] [address] Dr. Radha Suarez IG % 0.5 % Normal 0.0-0.5 [facility] Comment on above: Performed By: #### C VDTBH #### [facility] [address] [place] [address] Dr. Radha Suarez LYMPH # 1.8 103/ul Normal 1.2-3.8 [facility] Comment on above: Performed By: #### C VDTBH #### [facility] [address] [place] [address] Dr. Radha Suarez Lymphocytes/100 WBC (Bld) 21.4 % Normal 20.5-60.0 [facility] Comment on above: Performed By: #### C VDTBH #### [facility] [address] [place] [address] Dr. Radha Suarez MANUAL DIFF REQ NO Normal [facility] Comment on above: Performed By: #### C VDTBH #### [facility] [address] [place] [address] Dr. Radha Suarez MCH (RBC) [Entitic mass] 30.0 pg Normal 26.7-34.0 [facility] Comment on above: Performed By: #### C VDTBH #### [facility] [address] [place] [address] Dr. Radha Suarez MCHC (RBC) [Mass/Vol] 32.4 g/dL Normal 29.9-35.2 [facility] Comment on above: Performed By: #### C VDTBH #### [facility] [address] [place] [address] Dr. Radha Suarez MCV (RBC) [Entitic vol] 92.8 fL Normal 81.0-99.0 [facility] Comment on above: Performed By: #### C VDTBH #### [facility] [address] [place] [address] Dr. Radha Suarez MONO # 0.7 103/ul Normal 0.3-0.8 [facility] Comment on above: Performed By: #### C VDTBH #### [facility] [address] [place] [address] Dr. Radha Suarez Monocytes/100 WBC (Bld) 7.9 % Normal 1.7-12.0 [facility] Comment on above: Performed By: #### C VDTBH #### [facility] [address] [place] [address] Dr. Radha Suarez NEUT # 5.6 103/ul Normal 1.4-6.5 [facility] Comment on above: Performed By: #### C VDTBH #### [facility] [address] [place] [address] Dr. Radha Suarez Neutrophils/100 WBC (Bld) 68.7 % Normal 43.0-75.0 [facility] Comment on above: Performed By: #### C VDTBH #### [facility] [address] [place] [address] Dr. Radha Suarez Platelet mean volume (Bld) [Entitic vol] 9.5 fL Normal 9.5-13.5 [facility] Comment on above: Performed By: #### C VDTBH #### [facility] [address] [place] [address] Dr. Radha Suarez PLT 321 103/ul Normal 150-450 [facility] Comment on above: Performed By: #### C VDTBH #### [facility] [address] [place] [address] Dr. Radha Suarez RBC 4.56 106/ul Normal 4.20-5.40 [facility] Comment on above: Performed By: #### C VDTBH #### [facility] [address] [address] [address] Radha Suarez WBC 8.2 103/ul Normal 4.0-11.0 [facility] Comment on above: Performed By: #### C VDTBH #### [facility] [address] [address] [address] Radha Suarez FREE T3on 01-13-2022 FREE T3 1.99 pg/mlL Critically low 2.18-3.98 [facility] Comment on above: Performed By: #### C BC #### [facility] [address] [address] [address] Radha Suarez FREE T4on 01-13-2022 Free T4 [Mass/Vol] 1.02 ng/dL Normal 0.76-1.46 [facility] Comment on above: Performed By: #### C VDTBH #### [facility] [address] [place] [address] Dr. Radha Suarez MRI LUMBAR SPINE WO IVCONon 01-13-2022 MRI LUMBAR SPINE WO IVCON * * *Final Report* * * DATE OF EXAM: Jan 13 2022 2:53PM [facility] 0303 - MRI LUMBAR SPINE WO [...] crest and there are 5 lumbar-type vertebrae. Travelift Operator: PSCB Transcribe Date/Time: Jan 13 2022 3:43P Dictated by : KIERAN MONTOYA MD This examination was interpreted and the report reviewed and electronically signed by: KIERAN MONTOYA MD on Jan 13 2022 3:50PM EST [id number] CN Normal [facility] MRI THORACIC SPINE WO IVCONo n 01-13-2022 MRI THORACIC SPINE WO IVCON * * *Final Report* * * DATE OF EXAM: Jan 13 2022 2:53PM [facility] 0325 - MRI THORACIC SPINE WO [...] crest and there are 5 lumbar-type vertebrae. Travelift Operator: PSCB Transcribe Date/Time: Jan 13 2022 3:43P Dictated by : KIERAN MONTOYA MD This examination was interpreted and the report reviewed and electronically signed by: KIERAN MONTOYA MD on Jan 13 2022 3:50PM EST [id number] CN Normal [facility] No Panel Informationon 01-13 [facility] PROF CHEM 8 (BAS METB)on Anion gap [Moles/Vol] 11.3 mmol/L Normal [facility] Comment on above: Performed By: #### C BC #### [facility] [address] [address] [address] Radha Suarez Calcium [Mass/Vol] 9.5 mg/dL Normal 8.5-10.1 [facility] Comment on above: Performed By: #### C BC #### [facility] [address] [address] [address] Radha Suarez Chloride [Moles/Vol] 105 mmol/L Normal 98-107 [facility] Comment on above: Performed By: #### C BC #### [facility] [address] [address] [address] Radha Suarez CO2 [Moles/Vol] 28.2 mmol/L Normal 21.0-32.0 [facility] Comment on above: Performed By: #### C BC #### [facility] [address] [address] [address] Radha Suarez Creatinine [Mass/Vol] 0.86 mg/dL Normal 0.55-1.02 [facility] Comment on above: Performed By: #### C BC #### [facility] [address] [address] [address] Radha Suarez EGFR-AF KAZAKH >60 Normal >=60 [facility] Comment on above: Performed By: #### C BC #### [facility] [address] [address] [address] Radha Suarez EGFR-NON AF KAZAKH >60 Normal >=60 [facility] Comment on above: Performed By: #### C BC #### [facility] [address] [address] [address] Radha Suarez Glucose [Mass/Vol] 99 mg/dL Normal 74-106 [facility] Comment on above: Performed By: #### C BC #### [facility] [address] [place] [address] Dr. Radha Suarez Potassium [Moles/Vol] 3.5 mmol/L Normal 3.5-5.1 [facility] Comment on above: Performed By: #### C BC #### [facility] [address] [place] [address] Dr. Radha Suarez Sodium [Moles/Vol] 141 mmol/L Normal 136-145 [facility] Comment on above: Performed By: #### C BC #### [facility] [address] [place] [address] Dr. Radha Suarez Urea nitrogen [Mass/Vol] 15.0 mg/dL Normal 7.0-18.0 [facility] Comment on above: Performed By: #### C BC #### [facility] [address] [place] [address] Dr. Radha Suarez Urea nitrogen/Creatinine [Mass ratio] 17.4 mg/mg Normal [facility] Comment on above: Performed By: #### C BC #### [facility] [address] [place] [address] Dr. Radha Suarez TSHon 01-13-2022 TSH 5.692 uIU/mL Critically high 0.358-3.740 [facility] Comment on above: Performed By: #### C BC #### [facility] [address] [place] [address] Dr. Radha Suarez C-REACTIVE PROTEIN (CRP)on 0 6-10-2022 CRP [Mass/Vol] 0.9 mg/dL High <0.9 mg/dL [facility] ESR Westergren method (Bld) [Velocity]on 12-04-2021 ESR (Bld) [Velocity] 17 mm/h 0 - 20 mm/hr Cl [facility] HbA1c (Bld)on 12-04-2021 Average glucose Estimated from glycated hemoglobin (Bld) [Mass/Vol] 111 mg/dL [facility] HbA1c (Bld) [Mass fraction] 5.5 % 4.3 - 5.6 % [facility] CNOVon 12-03-2021 CNOV Office Visit (PAINLN) NATO PALACIOS ([id number]) 1970 F Date Time Provider Department 12/03/21 [...] she is a candidate for SCS (saw [employer] website). Patient reports the date of onset [...] supervised home exercise program (HEP): No 5. Server Support Technician: No Passive conservative therapy lasting 6 weeks in the last six months (see below) 1. Medical devises: No 2. Acupuncture: No 3. Tens unit: No 4. Prescription pain medication: No 5. 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 EXAMINATION: [id number] TERIOR: Scoliosis: No Pelvic Tilt: No Leg [...] sounds no (more content not included)... Normal [facility] CRP SerPl-mCncon 12-03-2021 CRP [Mass/Vol] 0.9 mg/dL High <0.9 [facility] Comment on above: Order Comment: Speci men Type: BLOOD SPECIMEN Ordering Facility: [facility] Address: [address] [place] [address] Performed By: #### 1 [id number] #### [facility] CLIA [id number] [address] [place] [address] [place] [address] [place] ESR Westergren method (Bld) [Velocity]on 12-03-2021 ESR (Bld) [Velocity] 17 mm/h Normal 0-20 [facility] Comment on above: Order Comment: Charles ayala Type: BLOOD SPECIMEN Ordering Facility: [facility] Address: [address] [place] [address] Performed By: #### 4 [id number] #### [facility] CLIA [id number] [address] [place] [address] HGB A1Con 12-03-2021 Average glucose Estimated from glycated hemoglobin (Bld) [Mass/Vol] 111 mg/dL Normal [facility] Comment on above: Order Comment: Charles ayala Type: BLOOD SPECIMEN Ordering Facility: [facility] Address: [address] [place] [address] Result Comment: eAG: (Estimated average glucose) is a calculated value from HgbA1c and is risk control representative of the average blood glucose level in the last 2-3 month period. Performed By: #### H BA1C #### [facility] CLIA [id number] [address] [place] [address] STATES [facility] HbA1c (Bld) [Mass fraction] 5.5 % Normal 4.3-5.6 [facility] Comment on above: Order Comment: Charles ayala Type: BLOOD SPECIMEN Ordering Facility: [facility] Address: [address] [place] [address] Result Comment: Amer ican Diabetes Association guidelines indicate that patients with HgbA1c in the range 5.7-6.4% are at increased risk for development of diabetes, and intervention by lifestyle modification may be beneficial. HgbA1c greater or equal to 6.5% is considered diagnostic of diabetes. Performed By: #### H BA1C #### [facility] CLIA [id number] [address] [place] [address] STATES OF [facility] No Panel Informationon 12-03 [facility] XR LUMBAR 3V AP/LAT/L5-S1on 12-03-2021 XR LUMBAR [...] subluxation at L4-5 with facet degenerative changes Travelift Operator: SAVAGE Transcribe Date/Time: Dec 04 2021 8:19P Dictated by : PARMJIT PIMENTEL MD This examination was interpreted and the report reviewed and electronically signed by: PARMJIT PIMENTEL MD on Dec 04 2021 8:20PM EST [id number] CN Normal [facility] CNPNon 12-02-2021 CNPN Telephone (PAINLN) NATO PALACIOS ([id number]) 1970 F Date Time Provider Department 12/02/21 LAZARUS JOHNSON During your visit today, we recorded the following information about you: Keren Rosales MA 12/02/2021 1:49 PM Signed Patient was advised of the following: This is a follow up phone call regarding your appointment with Dr Johnson, which you are scheduled to see at [facility] on 12/03/2021 1) Have you been evaluated [...] need to reschedule please call us at [phone]. Left VM with new patient policy advised [...] Status:Closed by KEREN ROSALES on 12/02/21 Normal [facility] XR FOOT LT MIN 3 VIEWSon [...] by: NAOMIE VELASQUEZ Date: 2021-11-12 21:36 Normal [facility] XR CHEST 2 Von 07-24-2021 SARS-CoV-2 [...] by: NAOMIE VELASQUEZ Date: 2021-07-23 22:04 Normal [facility] Consent for Treatmenton Consent for Treatment [id number] #1.00CD:127 Normal [facility] Registrationon 03-05-2020 Registration [id number] #1.00CD:127 Normal [facility] Consenton 02-29-2020 Consent [id number]#1.00CD:127 [facility] Vital Signs Date Time Vital Sign Value Performing Clinician Faci lity 03-28-2024 17:03-0400 Body height 151.8 cm Whit Sorensen MANAGER CONCRETE Work Phone: [facility] 03-28-2024 17:03-0400 Body mass index (BMI) [Ratio] 43.09 kg/m2 Whit Franchesca MANAGER CONCRETE Work Phone: [facility] 03-28-2024 17:03-0400 Body temperature 98.49 [degF] Whit Franchesca MANAGER CONCRETE Work Phone: [facility] 03-28-2024 17:03-0400 Body weight 99.25 kg Whit Franchesca MANAGER CONCRETE Work Phone: [facility] 03-28-2024 17:03-0400 Diastolic blood pressure 94 mm[Hg] Whit Sorensen MANAGER CONCRETE Work Phone: [facility] 10-02-2024 17:03-0400 Heart rate 89 /min Whit Trishaholz MANAGER CONCRETE Work Phone: [facility] 03-28-2024 17:03-0400 Respiratory rate 19 /min Whit Trishaholz MANAGER CONCRETE Work Phone: [facility] 03-28-2024 17:03-0400 SaO2% (BldA) [Mass fraction] 96 % Whit Brennenhholz MANAGER CONCRETE Work Phone: [facility] 03-28-2024 17:03-0400 Systolic blood pressure 140 mm[Hg] Whit Aichholz MANAGER CONCRETE Work Phone: [facility] 03-08-2024 15:07-0400 Body height 151.8 cm Whit Brennenhholz MANAGER CONCRETE Work Phone: [facility] 03-08-2024 15:07-0400 Body mass index (BMI) [Ratio] 42.77 kg/m2 Whit Brennenhholz MANAGER CONCRETE Work Phone: [facility] 03-08-2024 15:07-0400 Body temperature 97.81 [degF] Whit Aichholz MANAGER CONCRETE Work Phone: [facility] 03-08-2024 15:07-0400 Body weight 98.52 kg Whit Brennenhholz MANAGER CONCRETE Work Phone: [facility] 03-08-2024 15:07-0400 Diastolic blood pressure 80 mm[Hg] Whit Brennenhholz MANAGER CONCRETE Work Phone: [facility] 03-08-2024 15:07-0400 Heart rate 92 /min Whit Aichholz MANAGER CONCRETE Work Phone: [facility] 03-08-2024 15:07-0400 Respiratory rate 19 /min Whit Aichholz MANAGER CONCRETE Work Phone: [facility] 03-08-2024 15:07-0400 SaO2% (BldA) [Mass fraction] 96 % Whit Aichholz MANAGER CONCRETE Work Phone: [facility] 03-08-2024 15:[id number] Systolic blood pressure 128 mm[Hg] Whit Sorensen MANAGER CONCRETE Work Phone: [facility] 12-03-2021 15:140400 Body height 152.4 cm Lazarus Johnson MD Work Phone: [facility] 12-03-2021 15:140400 Heart rate 85 /min Lazarus Johnson MD Work Phone: [facility] 12-03-2021 15:140400 SaO2% (BldA) [Mass fraction] 96 % Lazarus Johnson MD Work Phone: [facility] Encounters Encounter Date Encounter Type Care Provider Facility Start: 06-04-2024 End: 06-04-2024 Refill Whit Sorensen MANAGER CONCRETE Work Phone: [facility] Comment on above: Spinal stenosis of l umbar region, unspecified whether neurogenic claudication present (Primary Dx); Migraine with aura and without status migrainosus, not intractable ([facility]); Primary insomnia; Mixed hyperlipidemia ([facility]); Anxiety and depression ([facility]); Hypothyroidism (acquired) ([facility]); Gastroesophageal reflux disease, unspecified whether esophagitis present Start: 05-28-2024 End: 05-28-2024 Refill Whit Sorensen MANAGER CONCRETE Work Phone: [facility] Comment on above: Muscle spasm (Primar y Dx) Start: 05-11-2024 End: 05-11-2024 Refill Whit Sorensen MANAGER CONCRETE Work Phone: [facility] Comment on above: Hypothyroidism (acqu ired) (CMS/HCC) Start: 05-10-2024 End: 05-10-2024 Clinisync Result Encounter Whit Sorensen MANAGER CONCRETE Work Phone: [facility] External Department Unsolicited Start: 05-10-2024 End: 05-10-2024 Clinisync Result Encounter Whit Sorensen MANAGER CONCRETE Work Phone: [facility] External Department Unsolicited Start: 05-09-2024 End: 05-09-2024 Orders Only Whit Sorensen MANAGER CONCRETE Work Phone: [facility] Comment on above: Cervical radiculopat hy (Primary Dx); Cervical myelopathy (CMS/HCC) Start: 05-04-2024 End: 05-04-2024 Refill Whit Franchesca MANAGER CONCRETE Work Phone: [facility] Comment on above: Gastroesophageal ref lux disease, unspecified whether esophagitis present Start: 04-12-2024 End: 04-12-2024 Refill Whit Franchesca MANAGER CONCRETE Work Phone: [facility] Comment on above: Oral thrush (Primary Dx) Start: 03-28-2024 End: 03-28-2024 Periodic preventive med est patient 40-64yrs Whit Sorensen MANAGER CONCRETE Work Phone: [facility] Comment on above: Encounter for annual wellness visit (Primary Dx); Migraine with aura and without status migrainosus, not intractable ([facility]); Primary insomnia; Pre-operative clearance; Elevated blood pressure, situational; Morbid obesity due to excess calories ([facility]); Current smoker Start: 03-28-2024 End: 03-28-2024 ambulatory WHIT AICHHOLZ Not Available Start: 03-28-2024 End: 03-28-2024 Bamboo flowsheet Whit Sorensen MANAGER CONCRETE Work Phone: [facility] Start: 03-28-2024 End: 03-28-2024 Bamboo flowsheet Whit Franchesca MANAGER CONCRETE Work Phone: [facility] Start: 03-28-2024 End: 03-28-2024 Patient encounter procedure Whit Sorensen MANAGER CONCRETE Work Phone: [facility] Start: 03-28-2024 End: 03-28-2024 Preoperative state Whit Sorensen MANAGER CONCRETE Work Phone: [facility] Start: 03-26-2024 End: 03-26-2024 ambulatory WHIT AICHHOLZ Not Available Start: 03-09-2024 End: 03-09-2024 [facility] Start: 03-08-2024 End: 03-08-2024 ambulatory WHIT AICHHOLZ Not Available Start: 03-08-2024 End: 03-08-2024 Office outpatient visit 15 minutes Whit Aichholz MANAGER CONCRETE Work Phone: [facility] Comment on above: Hypothyroidism (acqu ired) (CMS/HCC) (Primary Dx); Major depressive disorder, recurrent, moderate (HCC) (CMS/HCC); Supraventricular tachycardia, unspecified (CMS/HCC); Morbid obesity due to excess calories (CMS/HCC) Start: 03-08-2024 End: 03-08-2024 Bamboo flowsheet Whit Aichholz MANAGER CONCRETE Work Phone: [facility] Start: 03-08-2024 End: 03-08-2024 Bamboo flowsheet Whit Aichholz MANAGER CONCRETE Work Phone: [facility] Start: 03-07-2024 End: 03-07-2024 Clinisync Result Encounter Whit Aichholz MANAGER CONCRETE Work Phone: [facility] External Department Unsolicited Start: 03-07-2024 End: 03-07-2024 Clinisync Result Encounter Whit Aichholz MANAGER CONCRETE Work Phone: [facility] External Department Unsolicited Start: 03-07-2024 End: 03-07-2024 Refill Whit Aichholz MANAGER CONCRETE Work Phone: [facility] Comment on above: Hypothyroidism (acqu ired) (CMS/HCC) (Primary Dx) Start: 02-22-2024 End: 02-22-2024 ambulatory CAMPBELL NORTHEIM Not Available Start: 01-16-2024 End: 01-16-2024 ambulatory WHIT AICHHOLZ Not Available Start: 01-05-2024 End: 01-05-2024 ambulatory WHIT AICHHOLZ Not Available Start: 12-12-2023 End: 12-12-2023 ambulatory WHIT AICHHOLZ Not Available Start: 09-05-2023 End: 09-05-2023 ambulatory WHIT CHAVIRAZ Not Available Start: 05-24-2023 End: 05-24-2023 ambulatory WHIT ODEHOLZ Not Available Start: 02-10-2023 End: 02-13-[address] [facility] Start: 07-15-2022 End: 07-15-2022 ambulatory PATIENT CARE NURSING ASSISTANT WHIT SORENSEN Facility:[facility] Start: 05-30-2022 End: 05-30-[address] MEY FARNSWORTH Facility:[facility] Start: 04-21-2022 Encounter for other preprocedural examination PATIENT CARE NURSING ASSISTANT WHIT CHAVIRAElvis [facility] Start: 04-20-2022 ambulatory PATIENT CARE NURSING ASSISTANT WHIT SORENSEN Facil ity:[facility] Start: 04-16-2022 End: 04-17-2022 ambulatory PATIENT CARE NURSING ASSISTANT WHIT DOEDAMONElvis Facility:[facility] Start: 04-16-2022 End: 04-17-2022 Encounter for other preprocedural examination PATIENT CARE NURSING ASSISTANT WHIT SORENSEN Facility:[facility] Start: 03-08-2022 End: 03-09-2022 ambulatory PATIENT CARE NURSING ASSISTANT WHIT SORENSEN Facility:[facility] Start: 02-22-2022 Get Medical Advice Lazarus [...] 01-13-2022 Subsequent hospital visit by physician Mri [facility] (Lg Bore/1.5t) Radiology MRI Comment on above: [...] Kang RT(R) [facility] [place] Start: 12-11-2021 ambulatory NATACHA SORENSEN Facil ity:[facility] Start: 12-03-2021 End: 12-03-2021 Subsequent hospital visit by physician Xr [facility] [place] Comment on above: Radiculopathy of lum [...] Phone: Pain Management Comment on above: Appointment (bora masterson) Start: 11-19-2021 End: 11-20-2021 ambulatory NATACHA SORENSEN Facility:[facility] Start: 11-12-2021 End: 11-13-2021 ambulatory PATIENT CARE NURSING ASSISTANT WHIT SORENSEN Facility:[facility] Start: 07-23-2021 End: 07-24-2021 ambulatory PATIENT CARE NURSING ASSISTANT WHIT SORENSEN Facility:[facility] Procedures Date Procedure Procedure Detail Performing Clinician Start: 05-10-2024 ALL THYROID STIM HORMONE Whit Sorensen MANAGER CONCRETE Work Phone: Start: 05-10-2024 ALL THYROXINE (T4) FREE Whit Sorensen MANAGER CONCRETE Work Phone: Start: 03-07-2024 ALL T3 FREE Whit lake MANAGER CONCRETE Work Phone: Start: 03-07-2024 ALL THYROID STIM HORMONE Whit Sorensen MANAGER CONCRETE Work Phone: Start: 01-13-2022 Mri spinal canal tho racic w/o contrast matrl Lazarus Johnson MD Work Phone: Start: 12-03-2021 Radex spine lumbosac ral 2/3 views Lazarus Johsnon MD Work Phone: Start: 08-09-2018 Colonoscopy Whit lake MANAGER CONCRETE Work Phone: Plan of Treatment Date Care Activity Detail Author Start: 08-09-2028 Screening for malign ant neoplasm of colon [facility] Start: 12-03-2024 DIABETES SCREEN DIABETES SCREEN [facility] Start: 12-03-2024 [facility] Start: 07-21-2024 End: 05-11-2025 Thyroxine (T4) free [Mass/volume] in Serum or Plasma T4, free Lab Routine Hypothyroidism (acquired) ([facility]) Expected: 07/21/2024 (Approximate), Expires: 05/11/2025 [facility] Comment on above: Expected: 07/21/2024 (Approximate), Expires: 05/11/2025 Start: 07-11-2024 End: 05-11-2025 Thyrotropin [Units/volume] in Serum or Plasma TSH Lab Routine Hypothyroidism (acquired) ([facility]) Expected: 07/11/2024 (Approximate), Expires: 05/11/2025 [facility] Work Phone: Comment on above: Expected: 07/11/2024 (Approximate), Expires: 05/11/2025 Start: 05-07-2024 End: 03-07-2025 Thyrotropin [Units/volume] in Serum or Plasma TSH Lab Routine Hypothyroidism (acquired) ([facility] Expected: 05/07/2024 (Approximate), Expires: 03/07/2025 [facility] Work Phone: Comment on above: Expected: 05/07/2024 (Approximate), Expires: 03/07/2025 Start: 05-07-2024 End: 03-07-2025 Thyroxine (T4) free [Mass/volume] in Serum or Plasma T4, free Lab Routine Hypothyroidism (acquired) ([facility]) Expected: 05/07/2024 (Approximate), Expires: 03/07/2025 [facility] Comment on above: Expected: 05/07/2024 (Approximate), Expires: 03/07/2025 Start: 05-02-2024 End: 05-02-2024 Patient encounter procedure 05/02/2024 4:30 PM EST Office Visit [facility] [address] [place] [address] Whit Sorensen, MANAGER CONCRETE [address] [place] [address] [facility] Start: 03-28-2024 End: 03-28-2024 Patient encounter procedure [facility] Comment on above: Arrived Start: 03-28-2024 End: 03-28-2025 Basic metabolic 1998 panel - Serum or Plasma Basic metabolic panel Lab Routine Pre-operative clearance Expected: 03/28/2024 (Approximate), Expires: 03/28/2025 [facility] Comment on above: Expected: 03/28/2024 (Approximate), Expires: 03/28/2025 Start: 03-28-2024 End: 03-28-2025 CBC W Auto Differential panel - Blood CBC and differential Lab Routine Pre-operative clearance Expected: 03/28/2024 (Approximate), Expires: 03/28/2025 [facility] Work Phone: Comment on above: Expected: 03/28/2024 (Approximate), Expires: 03/28/2025 Start: 03-28-2024 End: 03-28-2025 ECG 12 lead ECG 12 lead ECG Routine Pre-operative clearance Expected: 03/28/2024 (Approximate), Expires: 03/28/2025 [facility] Comment on above: Expected: 03/28/2024 (Approximate), Expires: 03/28/2025 Start: 03-27-2024 End: 03-27-2024 Patient encounter procedure 03/27/2024 4:00 PM EDT Office Visit [facility] [address] [place] [address] Campbell Bach PA [address] [place] [address] [facility] Start: 03-08-2024 End: 03-08-2024 Patient encounter procedure 03/08/2024 3:00 PM EDT Office Visit [facility] [address] [place] [address] Whit Sorensen MANAGER CONCRETE [address] [place] [address] [facility] Start: 02-25-2023 Influenza vaccination [facility] Start: 06-27-2022 DEPRESSION ASSESSMENT DEPRESSION ASS ESSMENT [facility] Start: 02-25-2022 Influenza vaccination [facility] Start: 01-26-2022 End: 03-28-2022 Basic metabolic 2000 panel - Serum or Plasma BASIC METABOLIC PNL Lab Routine Lumbar disc herniation Radiculopathy of lumbar region Expected: 01/26/2022, Expires: 03/28/2022 [facility] Work Phone: Comment on above: Expected: 01/26/2022 , Expires: 03/28/2022 Start: 2020 SHINGRIX VACCINE (1 of 2) SHINGRIX VACCINE (1 of 2) [facility] Start: 2015 COLOGUARD (FIT-DNA) COLOGUARD (FIT-D NA) [facility] Start: 2015 Colonoscopy COLONOSCOPY [facility] Start: 2015 COLORECTAL CANCER SCREENING COLORECTAL CANCER SCREENING [facility] Start: [address] COLONOGRAPHY [facility] Start: 2015 DIABETES SCREEN DIABETES SCREEN [facility] Start: 2015 FECAL OCCULT BLOOD FECAL OCCULT BLOO D [facility] Start: 2015 Lipid 1996 panel - Serum or Plasma Lipid Screening [facility] Start: 2015 LIPID SCREEN LIPID SCREEN [facility] Start: 2015 SIGMOIDOSCOPY SIGMOIDOSCOPY [facility] Start: 2010 Mammography [facility] Start: 2010 Screening for malign ant neoplasm of breast Mammogram [facility] Start: 2000 HPV TESTING HPV TESTING [facility] Start: 2000 Screening for malign ant neoplasm of cervix HPV/Cotest [facility] Start: 1991 PAP TESTING PAP TESTING [facility] Start: 1991 Screening for malign ant neoplasm of cervix Pap Smear [facility] Start: 1989 Urine microalbumin profile [facility] Start: 1988 HEPATITIS C SCREENING HEPATITIS C SC REENING [facility] Start: 1988 HIV SCREENING HIV SCREENING [facility] Start: 1982 Adult depression screening assessment DEPRESSION SCREENING [facility] Start: 1976 PNEUMOCOCCAL (1 - PCV) PNEUMOCOCCAL (1 - PCV) [facility] Start: 1976 Pneumococcal vaccination Pneumococcal Vaccine (1 - PCV) [facility] Start: 1975 COVID-19 VACCINE (#1) COVID-19 VACCI NE (#1) [facility] Start: 02-18-1971 COVID-19 VACCINE (#1) COVID-19 VACCI NE (#1) [facility] Start: 1970 HEPATITIS B (1 of 3 - 3-dose series) HEPATITIS B (1 of 3 - 3-dose series) [facility] Start: 1970 Hepatitis B Vaccine (1 of 3 - 3-dose series) Hepatitis B Vaccine (1 of 3 - 3-dose series) [facility] Start: 1970 Screening for malign ant neoplasm of colon [facility] End: 01-02-2023 Mri spinal canal lumbar w/o contrast material MRI LUMBAR SPINE WO IVCON Radiology Routine Radiculopathy of lumbar region 1 Occurrences starting 12/03/2021 until 01/02/2023 [facility] Work Phone: Comment on above: 1 Occurrences starti ng 12/03/2021 until 01/02/2023 End: 01-02-2023 Mri spinal canal thoracic w/o contrast matrl MRI THORACIC SPINE WO IVCON Radiology Routine Radiculopathy of lumbar region 1 Occurrences starting 12/03/2021 until 01/02/2023 [facility] Work Phone: Comment on above: 1 Occurrences starti ng 12/03/2021 until 01/02/2023 [facility] Immunizations Immunization Date Immunization Notes Care Provider [facility] 04-24-2009 novel influenza-H1N1 -09, preservative-free, injectable Whit Sorensen MANAGER CONCRETE Work Phone: [facility] 04-24-2009 influenza virus vacc ine, unspecified formulation Mri Bore/1.5t) [facility] Payers Date Payer Category Payer Private Health Insurance [id number] 2023 Private Health Insurance [id number] 2021 Unknown [employer] PPO OOS [id number] 2021-Present [phone] [address] [place] [address] PPO [id number] 2021 Unknown [employer] PPO OOS [id number] 2021-Present [phone] [address] [place] [address] PPO [id number] 2020 Medicaid [employer] MEDICAID [id number] 2020-Present [phone] [address] [place] [address] Medicaid [id number] 2020 Medicaid [id number] 1970 Unknown [id number] 2.16.840.1.321359.3.579.2. 593 1970 Unknown [id number] 2.16.840.1.779851.3.579.2. 593 1970 Unknown [id number] 2.16.840.1.613216.3.579.2. 593 1970 Unknown [id number] 2.16.840.1.163904.3.579.2. 593 1970 Unknown [id number] 2.16.840.1.478948.3.579.2. 593 1970 Unknown [id number] 2.16.840.1.765073.3.579.2. 593 1970 Unknown [id number] 2.16.840.1.779647.3.579.2. 593 1970 Unknown [id number] 2.16.840.1.409129.3.579.2. 593 1970 Unknown [id number] 2.16.840.1.616262.3.579.2. 593 1970 Unknown [id number] 2.16.840.1.521966.3.579.2. 593 1970 Unknown [id number] 2.16.840.1.193071.3.579.2. 593 1970 Unknown [id number] 2.16.840.1.831567.3.579.2. 593 1970 Unknown [id number] 2.16.840.1.745571.3.579.2. 593 1970 Unknown [id number] 2.16.840.1.492488.3.579.2. 173 1970 Unknown [id number] 2.16.840.1.393198.3.579.2. 9 1970 Unknown [id number] 2.16.840.1.189201.3.579.2. 9 1970 Unknown [id number] 2.16.840.1.387951.3.579.2. 9 1970 Unknown [id number] 2.16.840.1.380170.3.579.2. 9 1970 Unknown [id number] 2.16.840.1.954307.3.579.2. 9 1970 Unknown [id number] 2.16.840.1.243897.3.579.2. 9 1970 Unknown [id number] 2.16.840.1.716378.3.579.2. 9 1970 Unknown [id number] 2.16.840.1.967372.3.579.2. 9 1970 Unknown [id number] 2.16.840.1.318396.3.579.2. 1259 1959 Self-pay [id number] 1959 Unknown [id number] 1959 Unknown [id number] 1959 Unknown [id number] Unknown [id number] Social History Date Type Detail Facility Tobacco smoking stat us NDIS Tobacco smoking consumption unknown [facility] Start: 1970 Sex Assigned At Female C [facility] Start: 06-27-1989 End: 06-26-2023 Tobacco smoking status NDIS Smokes tobacco daily [facility] Start: 12-03-2021 Tobacco use and exposure User of smo keless tobacco [facility] Start: 12-03-2021 Alcohol intake Lifetime non-d mar (finding) [facility] Start: 12-03-2021 History SDOH Alcohol Frequency 1 [facility] Start: 11-23-2021 End: 12-03-2021 Exposure to SARS-CoV-2 (event) Unable to assess [facility] Start: 12-12-2021 End: 02-02-2022 Exposure to SARS-CoV-2 (event) Not sure [facility] Start: 12-03-2021 End: 05-24-2023 History of Social function [facility] Start: 12-03-2021 End: 05-24-2023 Tobacco use panel [facility] National Score (1-10 0), lower number is lower risk 60 [facility] Start: 10-30-2021 Gender identity Identifies as female gender (finding) [facility] Start: 06-27-1989 History of tobacco use Cigarette Smo ker [facility] Start: 03-08-2024 End: 03-28-2024 Alcoholic beverage intake Current drinker [...] Oral, Daily, Discontinue the 30mg script HYDROcodone-acetaminophen (Draper) 5-325 MG tablet 1 tablet, Oral, Every [...] Left breast lump 09/05/2023 Migraine with aura ([facility]) 09/05/2023 Migraine with aura, without mention of [...] Function and dilation of urethra, Dr Hearn, [facility] family history includes Autism in her grandson; [...] yearly and prn documented in this encounter [facility] 03-28-2024 Instructions Whit Sorensen NP - 03/28/2024 5:00 PM EDT Start taking trazodone 50mg once at night for 5 days, then every other night for 5 doses, then start elavil (amitriptyline) 10mg dose at bedtime documented in this encounter [facility] 03-09-2024 Note Chief Complaint: nec k pain, [...] (six) hours if needed., Disp: , Rfl: [id number] 50-325-40 mg tablet, Take 1 tablet by [...] and Sexual Activity (more content not included)... [facility] 03-08-2024 History of Presen t illness Narrative Associated Problem(s): Major depressive disorder, recurrent, moderate (HCC) (CMS/HCC) Continue current meds Associated Problem(s): Morbid obesity due to excess calories (CMS/HCC) Cont adipex Associated Problem(s): Hypothyroidism (acquired) (CMS/HCC) Reviewed labs, will increase dose on thyroid to 175mcg and check labs again in 6-8 weeks Images from the original note were not included. Nato Palacios is a 53 y.o. female presents with chief complaint of No chief complaint on file. HPI: Adipex check: has lost 2 pounds in last week or so, no side effects from meds Thyroid Problem Presents for follow-up visit. Symptoms include fatigue. Patient reports no anxiety, constipation (occ), depressed mood, diarrhea, dry skin, hair loss, heat intolerance, hoarse voice, menstrual problem, palpitations, tremors or weight gain. SUBJECTIVE: MEDICATIONS: Current Outpatient Medications Medication Instructions albuterol HFA 90 mcg/act inhaler 2 puffs, Inhalation, Every 4 hours PRN atorvastatin (LIPITOR) 20 mg, Oral, Nightly ciclopirox (Penlac) 8 % solution Topical, Nightly cyclobenzaprine (FLEXERIL) 10 mg, Oral, Nightly PRN DULoxetine (CYMBALTA) 60 mg, Oral, Daily, Discontinue the 30mg script hydrocortisone 2.5 % ointment Topical, 2 times daily levothyroxine (SYNTHROID, LEVOXYL) 175 mcg, Oral, Daily before breakfast omeprazole (PRILOSEC) 40 mg, Oral, 2 times daily before meals phentermine (ADIPEX-P) 37.5 mg, Oral, Daily before breakfast SUMAtriptan (IMITREX) 6 mg, Subcutaneous, Once as needed terbinafine (LamISIL AT) 1 % cream Topical, 2 times daily traZODone (DESYREL) 100 mg, Oral, Nightly ALLERGIES: Allergies Allergen Reactions Penicillin G Swelling and Rash Penicillins Rash and Swelling Chlorhexidine Itching REVIEW OF SYMPTOMS: Review of Systems Constitutional: Positive for fatigue. Negative for appetite change, chills, fever and weight gain. HENT: Negative for congestion, ear pain, hoarse voice and sore throat. Eyes: Negative for pain, discharge, redness and visual disturbance. Respiratory: Negative for cough, shortness of breath and wheezing. Cardiovascular: Negative for chest pain, palpitations and leg swelling. Gastrointestinal: Negative for abdominal pain, blood in stool, constipation (occ), diarrhea, nausea and vomiting. Genitourinary: Negative for difficulty urinating, dysuria, frequency and menstrual problem. Musculoskeletal: Negative for arthralgias, back pain, joint swelling and myalgias. Skin: Negative for rash and wound. Neurological: Negative for dizziness, tremors, seizures, syncope and headaches. Psychiatric/Behavioral: Negative for behavioral problems, self-injury and suicidal ideas. The patient is not nervous/anxious. Hematological: Does not bruise/bleed easily. Endocrine: Negative for heat intolerance, polydipsia, polyphagia and polyuria. Allergic/Immunologic: Negative for [...] Function and dilation of urethra, Dr Hearn, [facility] family history includes Autism in her grandson; Depression in her mother; Heart disease in her father; Stroke in her mother. OBJECTIVE: Visit Vitals BP 128/80 (BP Location: Left arm, Patient Position: Sitting, BP Cuff Size: Adult long) Pulse 92 Temp 97.8 F (Temporal) Resp 19 Ht 4' 11.75 Wt 217 lb 3.2 oz SpO2 96% BMI 42.77 kg/m Smoking Status Every Day BSA 2.04 m Physical Exam Vitals and nursing note reviewed. Constitutional: General: She is not in acute distress. Appearance: Normal appearance. HENT: Head: Normocephalic and atraumatic. Right Ear: External ear normal. Left Ear: External ear normal. Nose: Nose normal. Mouth/Throat: Mouth: Mucous membranes are moist. Eyes: Extraocular Movements: Extraocular movements intact. Conjunctiva/sclera: Conjunctivae normal. Cardiovascular: Rate and Rhythm: Normal rate and regular rhythm. Pulses: Normal pulses. Heart sounds: Normal heart sounds. Pulmonary: Effort: Pulmonary effort is normal. Breath sounds: Normal breath sounds. Abdominal: General: Bowel sounds are normal. There is no distension. Palpations: Abdomen is soft. There is no mass. Tenderness: There is no abdominal tenderness. Musculoskeletal: General: Normal range of motion. Cervical back: Normal range of motion and neck supple. Lymphadenopathy: Cervical: No cervical adenopathy. Skin: General: Skin is warm and dry. Capillary Refill: Capillary refill takes 2 to 3 seconds. Findings: No rash. Neurological: General: No focal deficit present. Mental Status: She is alert and oriented to person, place, and time. Psychiatric: Mood and Affect: Mood normal. Behavior: Behavior normal. Thought Content: Thought content normal. Judgment: Judgment normal. ASSESSMENT AND PLAN: No follow-ups on file. Problem List Items Addressed This Visit Hypothyroidism (acquired) (CMS/HCC) - Primary Reviewed labs, will increase dose on thyroid to 175mcg and check labs again in 6-8 weeks Major depressive disorder, recurrent, moderate (HCC) (CMS/HCC) Continue current meds Morbid obesity due to excess calories (CMS/HCC) Cont adipex Supraventricular tachycardia, unspecified (CMS/HCC) documented in this encounter [facility] 04-16-2022 Note EXAMINATION: XR CHES T 2 [...] authenticated by: NAOMIE THEODORE Date: 2022-04-16 09:47 [facility] 02-24-2022 Miscellaneous Notes Initial Office Visit [...] Jane Carpenter Ma documented in this encounter [facility] 02-12-2022 Miscellaneous Notes XR and MRI results were sent to patient's mailing address. documented in this encounter [facility] 02-02-2022 Miscellaneous Notes Called patient, verified name [...] will have my daughter take me to [facility] ER and call you tomorrow with an update. Can we call patient and get current description of her pain. The purpose of trial of LESI is to see if this would improve her current pain symptoms Yasmeen Azul APRN.CNP documented in this encounter [facility] 02-02-2022 Miscellaneous Notes Called patient, left a [...] in the ED. documented in this encounter [facility] 01-27-2022 Miscellaneous Notes Order was faxed and received confirmation. For patient to continue Mobic recommend check BMP prior to refilling it Yasmeen Azul APRN.NATACHA documented in this encounter [facility] 01-14-2022 Miscellaneous Notes Please schedule a Left [...] January 14, 2022 documented in this encounter [facility] 01-13-2022 Note HNO ID: [id number] Author: ASIF Magana Service: Radiology Author Type: Treasury Analyst Type: Progress Notes Filed: 01/13/2022 2:51 PM [...] ASIF Magana January 13, 2022 2:50 PM [facility] 01-13-2022 History of Presen t illness Narrative [...] DATA: Not applicable SIGNED BY: Salbador Palacios landfill grader January 13, 2022 2:50 PM documented in this encounter [facility] 12-29-2021 Miscellaneous Notes PLAN: initial OV 12/03/21 Suggest: - XR - shows facet OA severe and L 4 on L 5 anterior listhesis - MRI thoracic and lumbar - bloodwork - hgba1c, WSr, CRp (all WNL) - after the above are reviewed (she will My Chart Message us) = psych evaluation prior to considering SCS trial Lazarus Johnson MD documented in this encounter [facility] 12-21-2021 Note HNO ID: [id number] Author: RT Adele(R) Service: ? Author Type: [...] 21, 2021 TIME: 1:20 PM PAGER/CONTACT #: [facility] 12-21-2021 History of Presen t illness Narrative RADIOLOGY SERVICE PROGRESS NOTE DATE OF SERVICE: December 21, 2021 TIME OF SERVICE: 1:20 pm EVENT: EXAM/PROCEDURE NOT COMPLETED - Patient became claustrophobic, reaction was: Moderate. ADDITIONAL EVENT DETAILS: no images acquired for mri t,l-spine SIGNATURE: RT Adele(R) PATIENT NAME: Nato Palacios DATE: December 21, 2021 TIME: 1:20 PM PAGER/CONTACT #: documented in this encounter [facility] 12-03-2021 Note HNO ID: [id number] Author: CAMILO SchroederR) Service: ? Author Type: Technologist Type: Progress [...] RT Elda(R) December 03, 2021 4:38 PM [facility] 12-03-2021 Note HNO ID: [id number] Author: Lazarus Johnson MD Service: ? Author Type: Physician Type: Progress Notes Filed: 12/14/2021 9:39 AM Note Text: SUBJECTIVE: Ms. Palacios a 51 year old female referred by Self Referred presents with the complaint of low back pain. She wants to know if she is a candidate for SCS (saw [employer] website). Patient reports the date of onset [...] supervised home exercise program (HEP): No 5. Server Support Technician: No Passive conservative therapy lasting 6 weeks in the last six months (see below) 1. Medical devises: No 2. Acupuncture: No 3. Tens unit: No 4. Prescription pain medication: No 5. 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 EXAMINATION: [id number]: Scoliosis: No Pelvic Tilt: No Leg Length [...] normal and s (more content not included)... [facility] 12-03-2021 History of Presen t illness [...] 2021 4:38 PM documented in this encounter [facility] 12-03-2021 History of Presen t [...] supervised home exercise program (HEP): No 5. Server Support Technician: No Passive conservative therapy lasting 6 weeks in the last six months (see below) 1. Medical devises: No 2. Acupuncture: No 3. Tens unit: No 4. Prescription pain medication: No 5. 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 EXAMINATION: [id number]: Scoliosis: No Pelvic Tilt: No Leg Length [...] DDD. She has seen Dr. Montero in [place] - with no improvement after LESI and radiof frequency with no effect. Has had PT different series since 2017. She saw Dr. Hidalgo in [place] who referred to Dr. Perez because of [...] which included preparing to see the patient, [id number] patient care, completing clinical documentation, obtaining and/or reviewing separately obtained history, performing a medically appropriate examination, counseling and educating the patient/family/caregiver, ordering medications, tests, or procedures, communicating with other HCPs (not separately reported) and independently interpreting results (not separately reported). Lazarus Johnson MD documented in this encounter [facility] 12-02-2021 Miscellaneous Notes Patient was advised of the following: This is a follow up phone call regarding your appointment with Dr Johnson, which you are scheduled to see at [facility] on 12/03/2021 1) Have you been evaluated [...] need to reschedule please call us at [phone]. Left VM with new patient policy advised tpo call office with any questions or concerns'Keren Rosales MA documented in this encounter [facility] 11-19-2021 Note PROCEDURE: XR FOOT L T [...] by: ZACH PEREZ Date: 2021-11-19 16:43 [facility] Evaluation note Diagnosis Degeneration of lumbar or lumbosacral intervertebral disc- Primary Radiculopathy of lumbar region Thoracic or lumbosacral neuritis or radiculitis, unspecified Radicular pain of left lower extremity Thoracic or lumbosacral neuritis or radiculitis, unspecified Discogenic low back pain Lumbago Hyperglycemia Other abnormal glucose History of fusion of cervical spine Arthrodesis status [facility] Diagnosis Radiculopathy of lumbar region- Primary Thoracic or lumbosacral neuritis or radiculitis, unspecified Lumbar disc herniation Displacement of lumbar intervertebral disc without myelopathy [facility] Diagnosis Lumbar disc herniation- Primary Displacement [...] spine Arthrodesis status [facility] Diagnosis Radiculopathy of lumbar region Thoracic or lumbosacral neuritis or radiculitis, unspecified Degeneration of lumbar or lumbosacral intervertebral disc Radicular pain of left lower extremity Thoracic or lumbosacral neuritis or radiculitis, unspecified Discogenic low back pain Lumbago [facility] note* Diagnosis Encounter for annual wellness visit- Primary Migraine with aura and without status migrainosus, not intractable ([facility]/HCC) Primary insomnia Persistent disorder of initiating or maintaining sleep Pre-operative clearance Unspecified pre-operative examination Elevated blood pressure, situational Morbid obesity due to excess calories ([facility]) Current smoker documented in this encounter [facility] HealthcareEvaluation note* Diagnosis Anxiety and depression ([facility])- Primary Gastroesophageal reflux disease, unspecified whether esophagitis present Hypothyroidism (acquired) ([facility]) Unspecified hypothyroidism Yeast dermatitis Wheezing Acute non-recurrent maxillary sinusitis Antibiotic-induced yeast infection Hypothyroidism (acquired) ([facility])- Primary Unspecified hypothyroidism Anxiety and depression ([facility]) Mixed hyperlipidemia ([facility]) Mixed hyperlipidemia Primary insomnia Persistent disorder of initiating or maintaining sleep Hypothyroidism (acquired) ([facility])- Primary Unspecified hypothyroidism 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[facility]) Chronic lymphocytic thyroiditis Morbid obesity due to excess calories ([facility]) Gastroesophageal reflux disease, unspecified whether esophagitis present Hypothyroidism (acquired) ([facility])- Primary Unspecified hypothyroidism Morbid obesity due to excess calories ([facility]) Yeast dermatitis Encounter for screening mammogram for malignant neoplasm of breast Tinea pedis, recurrent Dermatophytosis of foot Lumbar radiculopathy- Primary Thoracic or lumbosacral neuritis or radiculitis, unspecified Morbid obesity due to excess calories ([facility]/HCC) Hypothyroidism (acquired) ([facility])- Primary Unspecified hypothyroidism Major depressive disorder, recurrent, moderate ([facility]) Major depressive disorder, recurrent episode, moderate Supraventricular tachycardia, unspecified ([facility]) Morbid obesity due to excess calories ([facility]/HCC) Cervical radiculopathy- Primary Brachial neuritis or radiculitis nos Elevated blood pressure, situational Morbid obesity due to excess calories ([facility]/HCC) Multiple thyroid nodules ([facility]) Nontoxic multinodular goiter Encounter for annual wellness visit- Primary Migraine with aura and without status migrainosus, not intractable ([facility]/HCC) Primary insomnia Persistent disorder of initiating or maintaining sleep Pre-operative clearance Unspecified pre-operative examination Elevated blood pressure, situational Morbid obesity due to excess calories ([facility]) Current smoker Oral thrush- Primary Candidiasis of mouth documented in this encounter [facility] HealthcareEvaluation note* Diagnosis Anxiety and depression ([facility])- Primary Gastroesophageal reflux disease, unspecified whether esophagitis present Hypothyroidism (acquired) ([facility]) Unspecified hypothyroidism Yeast dermatitis Wheezing Acute non-recurrent maxillary sinusitis Antibiotic-induced yeast infection Hypothyroidism (acquired) ([facility])- Primary Unspecified hypothyroidism Anxiety and depression ([facility]) Mixed hyperlipidemia ([facility] Mixed hyperlipidemia Primary insomnia Persistent disorder of initiating or maintaining sleep Hypothyroidism (acquired) ([facility])- Primary Unspecified hypothyroidism 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[facility]) Chronic lymphocytic thyroiditis Morbid obesity due to excess calories ([facility]) Gastroesophageal reflux disease, unspecified whether esophagitis present Hypothyroidism (acquired) ([facility])- Primary Unspecified hypothyroidism Morbid obesity due to excess calories ([facility]) Yeast dermatitis Encounter for screening mammogram for malignant neoplasm of breast Tinea pedis, recurrent Dermatophytosis of foot Lumbar radiculopathy- Primary Thoracic or lumbosacral neuritis or radiculitis, unspecified Morbid obesity due to excess calories ([facility]) [place] Primary Unspecified hypothyroidism Major depressive disorder, recurrent, moderate ([facility]) Major depressive disorder, recurrent episode, moderate Supraventricular tachycardia, unspecified ([facility]) Morbid obesity due to excess calories ([facility]) Cervical radiculopathy- Primary Brachial neuritis or radiculitis nos Elevated blood pressure, situational Morbid obesity due to excess calories ([facility]) Multiple thyroid nodules [place] Nontoxic multinodular goiter Encounter for annual wellness visit- Primary Migraine with aura and without status migrainosus, not intractable ([facility]) Primary insomnia Persistent disorder of initiating or maintaining sleep Pre-operative clearance Unspecified pre-operative examination Elevated blood pressure, situational Morbid obesity due to excess calories ([facility]) Current smoker Gastroesophageal reflux disease, unspecified whether esophagitis present documented in this encounter [facility] note* Diagnosis Anxiety and depression ([facility])- Primary Gastroesophageal reflux disease, unspecified whether esophagitis present Hypothyroidism (acquired) ([facility]) Unspecified hypothyroidism Yeast dermatitis Wheezing Acute non-recurrent maxillary sinusitis Antibiotic-induced yeast infection Hypothyroidism (acquired) ([facility])- Primary Unspecified hypothyroidism Anxiety and depression ([facility]) Mixed hyperlipidemia ([facility] Mixed hyperlipidemia Primary insomnia Persistent disorder of initiating or maintaining sleep Hypothyroidism (acquired) ([facility])- Primary Unspecified hypothyroidism 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[facility]) Chronic lymphocytic thyroiditis Morbid obesity due to excess calories ([facility]) Gastroesophageal reflux disease, unspecified whether esophagitis present Hypothyroidism (acquired) ([facility])- Primary Unspecified hypothyroidism Morbid obesity due to excess calories ([facility]) Yeast dermatitis Encounter for screening mammogram for malignant neoplasm of breast Tinea pedis, recurrent Dermatophytosis of foot Lumbar radiculopathy- Primary Thoracic or lumbosacral neuritis or radiculitis, unspecified Morbid obesity due to excess calories ([facility]) Hypothyroidism (acquired) ([facility])- Primary Unspecified hypothyroidism Major depressive disorder, recurrent, moderate ([facility]) Major depressive disorder, recurrent episode, moderate Supraventricular tachycardia, unspecified ([facility]) Morbid obesity due to excess calories ([facility]) Cervical radiculopathy- Primary Brachial neuritis or radiculitis nos Elevated blood pressure, situational Morbid obesity due to excess calories ([facility]) Multiple thyroid nodules ([facility]) Nontoxic multinodular goiter Encounter for annual wellness visit- Primary Migraine with aura and without status migrainosus, not intractable ([facility]) Primary insomnia Persistent disorder of initiating or maintaining sleep Pre-operative clearance Unspecified pre-operative examination Elevated blood pressure, situational Morbid obesity due to excess calories ([facility]) Current smoker Cervical radiculopathy- Primary Brachial neuritis or radiculitis nos Cervical myelopathy ([facility]) Cervical spondylosis with myelopathy documented in this encounter [facility]* Diagnosis Anxiety and depression ([facility])- Primary Gastroesophageal reflux disease, unspecified whether esophagitis present Hypothyroidism (acquired) ([facility]) Unspecified hypothyroidism Yeast dermatitis Wheezing Acute non-recurrent maxillary sinusitis Antibiotic-induced yeast infection Hypothyroidism (acquired) ([facility])- Primary Unspecified hypothyroidism Anxiety and depression ([facility] Mixed hyperlipidemia ([facility] Mixed hyperlipidemia Primary insomnia Persistent disorder of initiating or maintaining sleep Hypothyroidism (acquired) ([facility])- Primary Unspecified hypothyroidism 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[facility]) Chronic lymphocytic thyroiditis Morbid obesity due to excess calories ([facility]) Gastroesophageal reflux disease, unspecified whether esophagitis present Hypothyroidism (acquired) ([facility]/HCC)- Primary Unspecified hypothyroidism Morbid obesity due to excess calories ([facility]) Yeast dermatitis Encounter for screening mammogram for malignant neoplasm of breast Tinea pedis, recurrent Dermatophytosis of foot Lumbar radiculopathy- Primary Thoracic or lumbosacral neuritis or radiculitis, unspecified Morbid obesity due to excess calories ([facility]) Hypothyroidism (acquired) ([facility])- Primary Unspecified hypothyroidism Major depressive disorder, recurrent, moderate ([facility]) Major depressive disorder, recurrent episode, moderate Supraventricular tachycardia, unspecified ([facility]) Morbid obesity due to excess calories ([facility]) Cervical radiculopathy- Primary Brachial neuritis or radiculitis nos Elevated blood pressure, situational Morbid obesity due to excess calories ([facility]) Multiple thyroid nodules ([facility]) Nontoxic multinodular goiter Encounter for annual wellness visit- Primary Migraine with aura and without status migrainosus, not intractable ([facility]) Primary insomnia Persistent disorder of initiating or maintaining sleep Pre-operative clearance Unspecified pre-operative examination Elevated blood pressure, situational Morbid obesity due to excess calories ([facility]) Current smoker Hypothyroidism (acquired) ([facility]) Unspecified hypothyroidism documented in this encounter [facility]* Diagnosis Anxiety and depression ([facility])- Primary Gastroesophageal reflux disease, unspecified whether esophagitis present Hypothyroidism (acquired) ([facility]) Unspecified hypothyroidism Yeast dermatitis Wheezing Acute non-recurrent maxillary sinusitis Antibiotic-induced yeast infection Hypothyroidism (acquired) ([facility])- Primary Unspecified hypothyroidism Anxiety and depression ([facility]) Mixed hyperlipidemia ([facility] Mixed hyperlipidemia Primary insomnia Persistent disorder of initiating or maintaining sleep Hypothyroidism (acquired) ([facility])- Primary Unspecified hypothyroidism 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[facility]) Chronic lymphocytic thyroiditis Morbid obesity due to excess calories ([facility]) Gastroesophageal reflux disease, unspecified whether esophagitis present Hypothyroidism (acquired) ([facility])- Primary Unspecified hypothyroidism Morbid obesity due to excess calories ([facility]) Yeast dermatitis Encounter for screening mammogram for malignant neoplasm of breast Tinea pedis, recurrent Dermatophytosis of foot Lumbar radiculopathy- Primary Thoracic or lumbosacral neuritis or radiculitis, unspecified Morbid obesity due to excess calories ([facility]) Hypothyroidism (acquired) ([facility])- Primary Unspecified hypothyroidism Major depressive disorder, recurrent, moderate ([facility]/HCC) Major depressive disorder, recurrent episode, moderate Supraventricular tachycardia, unspecified ([facility]) Morbid obesity due to excess calories ([facility]) Cervical radiculopathy- Primary Brachial neuritis or radiculitis nos Elevated blood pressure, situational Morbid obesity due to excess calories ([facility]) Multiple thyroid nodules ([facility]) Nontoxic multinodular goiter Encounter for annual wellness visit- Primary Migraine with aura and without status migrainosus, not intractable ([facility]) Primary insomnia Persistent disorder of initiating or maintaining sleep Pre-operative clearance Unspecified pre-operative examination Elevated blood pressure, situational Morbid obesity due to excess calories ([facility]) Current smoker Muscle spasm- Primary Spasm of muscle documented in this encounter [facility]* Diagnosis Hypothyroidism (acquired) ([facility] Primary Unspecified hypothyroidism documented in this encounter [facility]* Diagnosis Hypothyroidism (acquired) ([facility] Primary Unspecified hypothyroidism Major depressive disorder, recurrent, moderate (HCC) ([facility]) Major depressive disorder, recurrent episode, moderate Supraventricular tachycardia, unspecified ([facility]) Morbid obesity due to excess calories ([facility]) documented in this encounter [facility]* Diagnosis Anxiety and depression ([facility])- Primary Gastroesophageal reflux disease, unspecified whether esophagitis present Hypothyroidism (acquired) ([facility]) Unspecified hypothyroidism Yeast dermatitis Wheezing Acute non-recurrent maxillary sinusitis Antibiotic-induced yeast infection Hypothyroidism (acquired) ([facility])- Primary Unspecified hypothyroidism Anxiety and depression ([facility] Mixed hyperlipidemia ([facility] Mixed hyperlipidemia Primary insomnia Persistent disorder of initiating or maintaining sleep Hypothyroidism (acquired) ([facility])- Primary Unspecified hypothyroidism 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[facility]) Chronic lymphocytic thyroiditis Morbid obesity due to excess calories ([facility]) Gastroesophageal reflux disease, unspecified whether esophagitis present Hypothyroidism (acquired) ([facility])- Primary Unspecified hypothyroidism Morbid obesity due to excess calories ([facility]) Yeast dermatitis Encounter for screening mammogram for malignant neoplasm of breast Tinea pedis, recurrent Dermatophytosis of foot Lumbar radiculopathy- Primary Thoracic or lumbosacral neuritis or radiculitis, unspecified Morbid obesity due to excess calories ([facility]/HCC) Hypothyroidism (acquired) (CMS/HCC)- Primary Unspecified hypothyroidism Major depressive disorder, recurrent, moderate (CMS/HCC) Major depressive disorder, recurrent episode, moderate Supraventricular tachycardia, unspecified (CMS/HCC) Morbid obesity due to excess calories (CMS/HCC) Cervical radiculopathy- Primary Brachial neuritis or radiculitis [...] due to excess calories (CMS/HCC) Current smoker Spinal stenosis of lumbar region, unspecified whether neurogenic claudication present- Primary Migraine with aura and without status migrainosus, not intractable (CMS/HCC) Primary insomnia Persistent disorder of initiating or maintaining sleep Mixed hyperlipidemia (CMS/HCC) Mixed hyperlipidemia Anxiety and depression (CMS/HCC) Hypothyroidism (acquired) (CMS/HCC) Unspecified hypothyroidism Gastroesophageal reflux disease, unspecified whether esophagitis present documented in this encounter [facility] for referral (narrative)* Diagnostic Procedure Only (Routine) - Closed Specialty Diagnoses / Procedures Referred By Contac t Referred To Contact XR IMAGING Diagnoses Radiculopathy of lumbar region Degeneration of lumbar or lumbosacral intervertebral disc Radicular pain of left lower extremity Discogenic low back pain Procedures XR LUMBAR GENERAL 3V AP/LAT/L5-S1 RADEX SPINE LUMBOSACRAL 2/3 VIEWS Lazarus Johnson MD [address] [place] [address] Xr Imaging Referral ID Status Reason Start Date Expiration Date V isits Requested Visits Authorized [id number] Closed Auto-Generate d Referral 12/03/2021 01/02/2023 1 1 [facility] Summary Purpose Family History No Family History [...] W/O CONTRAST MATERIAL Lazarus Johnson MD [address] [place] [address] Mr Imaging Referral ID Status Reason Start Date Expiration Date Visits Requested Visits Authorized [id number] Authorized Auto-Generat ed Referral 12/03/2021 12/21/2021 1 1 Specialty Diagnoses / Procedures Referred By Contac t Referred To Contact MR IMAGING Diagnoses Radiculopathy of lumbar region Procedures MRI THORACIC SPINE WO IVCON MRI SPINAL CANAL THORACIC W/O CONTRAST MATRL Lazarus Johnson MD [address] [place] [address] Mr Imaging Referral ID Status Reason Start Date Expiration Date Visits Requested Visits Authorized [id number] Authorized Auto-Generat ed Referral 12/03/2021 12/21/2021 1 1 Specialty Diagnoses / Procedures Referred By Contac t Referred To Contact XR IMAGING Diagnoses Radiculopathy of lumbar region Degeneration of lumbar or lumbosacral intervertebral disc Radicular pain of left lower extremity Discogenic low back pain Procedures XR LUMBAR GENERAL 3V AP/LAT/L5-S1 RADEX SPINE LUMBOSACRAL 2/3 VIEWS Lazarus Johnson MD [address] [place] [address] Xr Imaging Referral ID Status Reason Start Date Expiration Date V isits Requested Visits Authorized [id number] Closed Auto-Generate d Referral 12/03/2021 01/02/2023 1 1 Specialty Diagnoses / Procedures Referred By Contac t Referred To Contact Diagnoses Radiculopathy of lumbar region Lumbar disc herniation Procedures CONSULT TO SPINE SURGERY OFFICE/OUTPATIENT [facility] 60-74 MINUTES Lindy Gunderson, [place] [address] [place] [address] Referral ID Status Reason Start Date Expiration Date Visits Requested Visits Authorized [id number] Authorized PCP Requested Referral 01/14/2022 01/14/2023 1 1 Specialty Diagnoses / Procedures Referred By Sylvester t Referred To Contact Diagnoses Migraine with aura and without status migrainosus, not intractable (CMS/HCC) Whit Sorensen, [place] [address] [place] [address] Referral ID Status Reason Start Date Expiration Date V isits Requested Visits Authorized [id number] Pending Review 03/28/2024 09/24/2024 1 1 Additional Source Comments INFORMATION SOURCE (unrecogn ized section and content) DATE CREATED AUTHOR 10/22/2020 [facility] DATE CREATED AUTHOR AUTHOR'S ORGANIZ ATION 01/29/2022 [facility] DATE CREATED AUTHOR AUTHOR'S ORGANIZ ATION 03/04/2022 [facility] DATE CREATED AUTHOR AUTHOR'S ORGANIZ ATION 07/21/2022 [facility] DATE CREATED AUTHOR AUTHOR'S ORGANIZ ATION 02/13/2023 [facility] DATE CREATED AUTHOR AUTHOR'S ORGANIZ ATION 03/30/2024 [facility] dical [facility] EPIC DATE CREATED AUTHOR AUTHOR'S ORGANIZ ATION 05/10/2024 [facility] Source Comments (unrecognize d section and content) In the event this informatio n is protected by the Federal Confidentiality of Alcohol and Drug Abuse Patient Records regulations: The Federal rules restrict any use of the information to criminally investigate or prosecute any alcohol or drug abuse patient.[facility] Center[facility] the event this information is protected by the Federal Confidentiality of Alcohol and Drug Abuse Patient Records regulations: The Federal rules restrict any use of the information to criminally investigate or prosecute any alcohol or drug abuse patient.[facility] the event this information is protected by the Federal Confidentiality of Alcohol and Drug Abuse Patient Records regulations: The Federal rules restrict any use of the information to criminally investigate or prosecute any alcohol or drug abuse patient.[facility] the event this information is protected by the Federal Confidentiality of Alcohol and Drug Abuse Patient Records regulations: The Federal rules restrict any use of the information to criminally investigate or prosecute any alcohol or drug abuse patient.[facility] the event this information is protected by the Federal Confidentiality of Alcohol and Drug Abuse Patient Records regulations: The Federal rules restrict any use of the information to criminally investigate or prosecute any alcohol or drug abuse patient.[facility] the event this information is protected by the Federal Confidentiality of Alcohol and Drug Abuse Patient Records regulations: The Federal rules restrict any use of the information to criminally investigate or prosecute any alcohol or drug abuse patient.[facility] the event this information is protected by the Federal Confidentiality of Alcohol and Drug Abuse Patient Records regulations: The Federal rules restrict any use of the information to criminally investigate or prosecute any alcohol or drug abuse patient.[facility] Center[facility] the event this information is protected by the Federal Confidentiality of Alcohol and Drug Abuse Patient Records regulations: The Federal rules restrict any use of the information to criminally investigate or prosecute any alcohol or drug abuse patient.[facility] the event this information is protected by the Federal Confidentiality of Alcohol and Drug Abuse Patient Records regulations: The Federal rules restrict any use of the information to criminally investigate or prosecute any alcohol or drug abuse patient.[facility] CenterIn the event this information is protected by the Federal Confidentiality of Alcohol and Drug Abuse Patient Records regulations: The Federal rules restrict any use of the information to criminally investigate or prosecute any alcohol or drug abuse patient.[facility] CenterIn the event this information is protected by the Federal Confidentiality of Alcohol and Drug Abuse Patient Records regulations: The Federal rules restrict any use of the information to criminally investigate or prosecute any alcohol or drug abuse patient.[facility] CenterIn the event this information is protected by the Federal Confidentiality of Alcohol and Drug Abuse Patient Records regulations: The Federal rules restrict any use of the information to criminally investigate or prosecute any alcohol or drug abuse patient.[facility] CenterIn the event this information is protected by the Federal Confidentiality of Alcohol and Drug Abuse Patient Records regulations: The Federal rules restrict any use of the information to criminally investigate or prosecute any alcohol or drug abuse patient.[facility] Reason for Visit (unrecogniz ed section and content) Reason Comments Radiology MRI Specialty Diagnoses / Procedures Referred By Contac t Referred To Contact MR IMAGING Diagnoses Radiculopathy of lumbar region Procedures MRI THORACIC SPINE WO IVCON MRI SPINAL CANAL THORACIC W/O CONTRAST MATRL Lazarus Johnson MD [address] 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 Start Date End Date Fidel Smith MD [address] [place] [phone] PCP - General Family Medicine 08/01/23 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 Start Date End Date Fidel Smith MD [address] [place] [phone] PCP - General Family Medicine 08/01/23 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 Start Date End Date Fidel Smith MD [address] [place] [phone] PCP - General Family Medicine 08/01/23 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 Start Date End Date Fidel Smith MD [address] [place] [address] PCP - General Family Medicine 08/01/23 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 Start Date End Date Fidel Smith MD [address] [place] [address] PCP - General Family Medicine 08/01/23 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 Start Date End Date Fidel Smith MD [address] [place] [phone] PCP - General Family Medicine 08/01/23 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 Start Date End Date Fidel Smith MD [address] [place] [phone] PCP - General Family Medicine 08/01/23 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 Start Date End Date Fidel Smith MD [address] [place] [address] PCP - General Family Medicine 08/01/23 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 Start Date End Date Fidel Smith MD [address] [place] [address] PCP - General Family Medicine 08/01/23 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 [facility] [employer] [facility]. provides no warranty or guarantee of the accuracy or completeness of information in this document.
[2024-06-13 18:07] VITALS: BP 176/101; O2SAT 99
--- NOTE | 2024-06-13 18:12 | ECG_ITS ---
[facility] Test Date: 2024-06-13 Pat Name: NATO SHORT Department: Room: - Gender: Female [place] Attendant: : 1970 Requested By: KEL FOWLER Order Number: [id number] Reading MD: FRANCHESCA LEE Measurements Intervals [place] Rate: 74 P: 75 MN: 150 QRS: 57 QRSD: 82 T: 19 QT: 394 QTc: 421 Interpretive Statements 1100 Sinus rhythm 2420 RSR (QR) in lead V1/V2, consistent with right ventricular conduction delay 4068 Nonspecific [place] abnormality 9130 borderline ECG Electronically Signed On 06-13-2024 20:37:01 EST by FRANCHESCA LEE
[2024-06-13 18:15] VITALS: BP 153/103; PULSE 74
--- NOTE | 2024-06-13 18:19 | ED_ITS ---
HPI HPI - General Adult General Chief complaint: Chest Pain Stated complaint: HEART RACING Time Seen by Provider: 06/13/24 18:01 Source: patient Mode of arrival: walk-in History of Present Illness HPI narrative: Patient presents to ED complaining of chest pressure and headache. Patient states she has a history of anxiety and recently it has been a lot worse given her stressful job and working for a terrible boss. She states every day she has been very stressed and it has been a lot worse for the past month. She does have a new job that she will be starting after the first of the year. She said today was particularly stressful and it sent her into a panic attack. She said usually she calms down on the drive home in the car but she was unable to calm herself down so she came in for evaluation of the chest pain and headache. She is tearful on exam and obviously stressed. Patient has a history of anxiety and depression and she takes Cymbalta at night. She is alert and oriented denies any history of cardiac issues. Related Data Home Medications ?Medication ?Instructions ?Recorded ?Confirmed omeprazole 40 mg capsule,delayed 40 mg PO DAILY 12/06/22 06/13/24 release duloxetine 60 mg capsule,delayed 60 mg PO DAILY 05/30/24 06/13/24 release levothyroxine 175 mcg tablet 175 mcg PO DAILY 05/30/24 06/13/24 amitriptyline 10 mg tablet mg 06/13/24 atorvastatin 10 mg tablet mg 06/13/24 ciclopirox 8 % topical solution topical 06/13/24 cyclobenzaprine 10 mg tablet mg 06/13/24 levothyroxine 25 mcg tablet mcg 06/13/24 levothyroxine 75 mcg tablet mcg 06/13/24 Previous Rx's ?Medication ?Instructions ?Recorded mupirocin 2 % topical ointment 1 applic topical TID #15 grams 12/06/22 Allergies Allergy/AdvReac Type Severity Reaction Status Date / Time Penicillins Allergy Severe Hives Verified 06/13/24 18:05 Opioid HPI Opioid Management Most Recent Opioid Data: No Data to Display Review of Systems ROS Status of ROS 10 or more systems reviewed and unremark able except as noted in history and below PFSH PFSH Social History Little interest or pleasure in doing things: not at all Feeling down, depressed, or hopeless: not at all Exam Narrative Exam Narrative: Time Seen: [] Vital Signs: [Per nurse's notes.] General: [Alert] Skin: [Warm, dry, no rash.] Head: [Normocephalic, atraumatic.] Neck: [Supple, trachea midline.] Eye: [Pupils are equal, round and reactive to light, extraocular movements are intact, normal conjunctiva.] Ears, nose, mouth and throat: oral mucosa moist. Cardiovascular: Tachycardic, no murmur.] Respiratory: [Lungs are clear to auscultation, respirations are non-labored, breath sounds are equal.] Chest wall: [No tenderness, no deformity.] Gastrointestinal: [Soft, nontender, non distended, normal bowel sounds.] MSK: 5 out of 5 muscle strength x 4 extremities no calf pain or edema Lymphatics: [No lymphadenopathy.] Psychiatric: [Cooperative, appropriate mood & affect.] Tearful, anxious Neurological: [Alert and oriented to person, place, time, and situation, no focal neurological deficit observed.] Constitutional Vital Signs, click to edit/add: Last Vital Signs Temp 97.9 F 06/13/24 18:05 Pulse 95 H 06/13/24 18:05 Resp 18 06/13/24 18:05 BP 176/101 H 06/13/24 18:05 Pulse Ox 97 06/13/24 18:05 O2 Del Method Room Air 06/13/24 18:05 Course Vital Signs Vital signs: Vital Signs Temperature 97.9 F 06/13/24 18:05 Pulse Rate 95 H 06/13/24 18:05 Respiratory Rate 18 06/13/24 18:05 Blood Pressure 176/101 H 06/13/24 18:05 Pulse Oximetry 97 06/13/24 18:05 Oxygen Delivery Method Room Air 06/13/24 18:05 Temperature 97.9 F 06/13/24 18:05 Pulse Rate 95 H 06/13/24 18:05 Respiratory Rate 18 06/13/24 18:05 Blood Pressure 176/101 H 06/13/24 18:05 Pulse Oximetry 97 06/13/24 18:05 Oxygen Delivery Method Room Air 06/13/24 18:05 Medical Decision Making ECG Data Attestation: I personally reviewed and interpreted this ECG as follows: Interpretation: EKG INTERPRETATION Time: [] 1814 Rate: [] 74 Rhythm: _ [] Sinus rhythm ST segments: _ [] No acute ST elevation or depression T waves: _ [] Ectopy: _ [] P wave/MO interval: _ [] QRS interval: _ [] QT interval: _ [] Comparison: _ [] Comparison EKG date: [] Performed by: [self] Discharge Plan Discharge Chief Complaint: Chest Pain Prescriptions / Home Meds: No Action omeprazole 40 mg capsule,delayed release(DR/EC) 40 mg PO DAILY mupirocin 2 % ointment 1 applic topical TID Qty: 15 0RF levothyroxine 175 mcg tablet 175 mcg PO DAILY Rx Instructions: adds 25mcg qMon/tue/tue duloxetine 60 mg capsule,delayed release(DR/EC) 60 mg PO DAILY cyclobenzaprine 10 mg tablet atorvastatin 10 mg tablet levothyroxine 25 mcg tablet levothyroxine 75 mcg tablet ciclopirox 8 % solution TOPICAL amitriptyline 10 mg tablet Print Language: Mongolian Referrals: Whit Sorensen [employer] [Primary Care Provider] - 1 week
[2024-06-13 18:20] VITALS: PULSE 83; O2SAT 97
[2024-06-13] MEDS: HYDROXYZINE PAMOATE 25 MG CAPSULE 50 MG PO (18:26)
[2024-06-13 18:31] VITALS: BP 168/106; PULSE 82; O2SAT 98
[2024-06-13 18:39] LABS: Basophils Absolute Auto 0.1 10^3/uL (0.0-0.1); Basophils Percent Auto 0.7 % (0.2-2.0); Eosinophils Absolute Auto 0.1 10^3/uL (0.0-0.7); Eosinophils Percent Auto 0.7 % (0.9-7.0); Hematocrit 44.2 % (36.0-48.0); Immature Granulocytes Abs Auto 0.03 10^3/uL (0.00-0.03); Immature Granulocytes Pct Auto 0.3 % (0.0-0.5); Lymphocytes Absolute Auto 2.8 10^3/uL (1.2-3.8); Lymphocytes Percent Auto 25.7 % (20.5-60.0); Mean Corpuscular HGB Conc 33.9 g/dL (29.9-35.2); Mean Corpuscular Hemoglobin 31.3 pg (26.7-34.0); Mean Corpuscular Volume 92.3 fL (81.0-99.0); Mean Platelet Volume 9.5 fL (9.5-13.5); Monocytes Absolute Auto 0.8 10^3/uL (0.3-0.8); Monocytes Percent Auto 7.1 % (1.7-12.0); Neutrophils Absolute Auto 7.2 10^3/uL (1.4-6.5); Neutrophils Percent Auto 65.5 % (43.0-75.0); Platelet Count 340 10^3/uL (150-450); Red Blood Count 4.79 10^6/uL (4.20-5.40); White Blood Count 11.1 10^3/uL (4.0-11.0)
[2024-06-13 19:02] LABS: Alanine Aminotransferase 22 U/L (14-59); Albumin Globulin Ratio 1.1; Alkaline Phosphatase 81 U/L (46-116); Anion Gap 11.8; Aspartate Amino Transferase 13 U/L (15-37); BUN Creatinine Ratio 10.3; Bilirubin Total 0.6 mg/dL (0.2-1.0); Calcium 9.3 mg/dL (8.5-10.1); Carbon Dioxide 28.1 mmol/L (21.0-32.0); Chloride 101 mmol/L (98-107); Estimated GFR (African America >60 (>=60 mL/min/1.73m^2); Estimated GFR (Non-African Ame >60 (>=60 mL/min/1.73m^2); Globulin 3.5 g/dL; Glucose 99 mg/dL (74-106); Sodium 138 mmol/L (136-145); Total Protein 7.5 g/dL (6.4-8.2); Troponin I High Sensitivity 11.8 pg/mL (4.0-51.3)
[2024-06-13 19:05] LABS: Potassium 2.9 mmol/L (3.5-5.1)
[2024-06-13] MEDS: KETOROLAC TROMETHAMINE 30 MG/ML VIAL IVP (19:21)
--- NOTE | 2024-06-13 19:44 | ED_ITS ---
HPI HPI - General Adult General Chief complaint: Chest Pain Stated complaint: HEART RACING Time Seen by Provider: 06/13/24 18:01 Source: patient Mode of arrival: walk-in History of Present Illness HPI narrative: 53-year-old female presents to the emergency department and was initially seen by Dr. Harrington and signed out to me after discussing the case with her thoroughly. Please see her full history and physical exam. Related Data Home Medications ?Medication ?Instructions ?Recorded ?Confirmed omeprazole 40 mg capsule,delayed 40 mg PO DAILY 12/06/22 06/13/24 release duloxetine 60 mg capsule,delayed 60 mg PO DAILY 05/30/24 06/13/24 release levothyroxine 175 mcg tablet 175 mcg PO DAILY 05/30/24 06/13/24 amitriptyline 10 mg tablet mg 06/13/24 atorvastatin 10 mg tablet mg 06/13/24 ciclopirox 8 % topical solution topical 06/13/24 cyclobenzaprine 10 mg tablet mg 06/13/24 levothyroxine 25 mcg tablet mcg 06/13/24 levothyroxine 75 mcg tablet mcg 06/13/24 Previous Rx's ?Medication ?Instructions ?Recorded mupirocin 2 % topical ointment 1 applic topical TID #15 grams 12/06/22 Allergies Allergy/AdvReac Type Severity Reaction Status Date / Time Penicillins Allergy Severe Hives Verified 06/13/24 18:05 Opioid HPI Opioid Management Most Recent Opioid Data: No Data to Display [facility] Social History Little interest or pleasure in doing things: not at all Feeling down, depressed, or hopeless: not at all Exam Constitutional Vital Signs, click to edit/add: Last Vital Signs Temp 97.9 F 06/13/24 18:05 Pulse 82 06/13/24 18:31 Resp 18 06/13/24 18:31 BP 168/106 H 06/13/24 18:31 Pulse Ox 98 06/13/24 18:31 O2 Del Method Room Air 06/13/24 18:05 Course Vital Signs Vital signs: Vital Signs Temperature 97.9 F 06/13/24 18:05 Pulse Rate 95 H 06/13/24 18:05 Respiratory Rate 18 06/13/24 18:05 Blood Pressure 176/101 H 06/13/24 18:05 Pulse Oximetry 97 06/13/24 18:05 Oxygen Delivery Method Room Air 06/13/24 18:05 Temperature 97.9 F 06/13/24 18:05 Pulse Rate 82 06/13/24 18:31 Respiratory Rate 18 06/13/24 18:31 Blood Pressure 168/106 H 06/13/24 18:31 Pulse Oximetry 98 18 18:31 Oxygen Delivery Method Room Air 06/13/24 18:05 Medical Decision Making MDM Narrative Medical decision making narrative: The patient's workup is negative including the EKG and the troponin. She feels much better after being given p.o. Vistaril and she is discharged home. My clinical impression is that this was due to anxiety. Treatment diagnosis and follow-up were discussed with the patient. Differential Diagnosis Differential Diagnosis: Anxiety, PA, panic attack Lab Data Lab results reviewed: Yes I reviewed the patient's lab results Labs: Lab Results 06/13/24 Range/Units 18:20 WBC 11.1 H (4.0-11.0) 10^3/uL RBC 4.79 (4.20-5.40) 10^6/uL Hgb 15.0 (12.0-16.0) g/dL Hct 44.2 (36.0-48.0) % MCV 92.3 (81.0-99.0) fL MCH 31.3 (26.7-34.0) pg MCHC 33.9 (29.9-35.2) g/dL RDW 14.0 (11.0-15.0) % Plt Count 340 (150-450) 10^3/uL MPV 9.5 (9.5-13.5) fL Neut % (Auto) 65.5 (43.0-75.0) % Lymph % (Auto) 25.7 (20.5-60.0) % [place] % (Auto) 7.1 (1.7-12.0) % Eos % (Auto) 0.7 L (0.9-7.0) % Baso % (Auto) 0.7 (0.2-2.0) % Neut # (Auto) 7.2 H (1.4-6.5) 10^3/uL Lymph # (Auto) 2.8 (1.2-3.8) 10^3/uL [place] # (Auto) 0.8 (0.3-0.8) 10^3/uL Eos # (Auto) 0.1 (0.0-0.7) 10^3/uL Baso # (Auto) 0.1 (0.0-0.1) 10^3/uL Abs Immat Gran (auto) 0.03 (0.00-0.03) 10^3/uL Imm/Tot Granulo (auto) 0.3 (0.0-0.5) % Sodium 138 (136-145) mmol/L Potassium 2.9 L* (3.5-5.1) mmol/L Chloride 101 (98-107) mmol/L Carbon Dioxide 28.1 (21.0-32.0) mmol/L Anion Gap 11.8 BUN 9.0 (7.0-18.0) mg/dL Creatinine 0.87 (0.55-1.02) mg/dL Est GFR ( Amer) >60 (>=60 mL/min/1.73m^2) Est GFR (Non-Af Amer) >60 (>=60 mL/min/1.73m^2) BUN/Creatinine Ratio 10.3 Glucose 99 (74-106) mg/dL Calcium 9.3 (8.5-10.1) mg/dL Total Bilirubin 0.6 (0.2-1.0) mg/dL AST 13 L (15-37) U/L ALT 22 (14-59) U/L Alkaline Phosphatase 81 (46-116) U/L Troponin I High Sens 11.8 (4.0-51.3) pg/mL Total Protein 7.5 (6.4-8.2) g/dL Albumin 4.0 (3.4-5.0) g/dL Globulin 3.5 g/dL Albumin/Globulin Ratio 1.1 ECG Data Attestation: I personally reviewed and interpreted this ECG as follows: (EKG on my interpretation shows normal sinus rhythm with a rate of 74 and no acute change.) Discharge Plan Discharge Chief Complaint: Chest Pain Clinical Impression: Anxiety Patient Disposition: Home, Self-Care Time of Disposition Decision: 19:43 Condition: Good Mode of Transportation: Private Vehicle Prescriptions / Home Meds: No Action omeprazole 40 mg capsule,delayed release(DR/EC) 40 mg PO DAILY mupirocin 2 % ointment 1 applic topical TID Qty: 15 0RF levothyroxine 175 mcg tablet 175 mcg PO DAILY Rx Instructions: adds 25mcg qMon/tue/fri duloxetine 60 mg capsule,delayed release(DR/EC) 60 mg PO DAILY cyclobenzaprine 10 mg tablet atorvastatin 10 mg tablet levothyroxine 25 mcg tablet levothyroxine 75 mcg tablet ciclopirox 8 % solution TOPICAL amitriptyline 10 mg tablet Print Language: Bengali Instructions: Anxiety (ED) Referrals: Whit Sorensen NP [Primary Care Provider] - 1 week
[2024-06-13 19:53] VITALS: BP 144/92; PULSE 81; O2SAT 96
== END 2024-06-13 19:54 | disposition home or self-care (01) ==
PROVIDERS: Emergency Medicine; Emergency Provider Emergency Medicine; PCP Nurse Practitioner
DX: F41.9 Anxiety disorder, unspecified (principal); F32.A Depression, unspecified; R07.89 Other chest pain
CPT/HCPCS: 36415; 80053; 84484; 85025; 93005; 96374; 99285; J1885; Q0177

== ENCOUNTER 2024-06-26 08:15 | Outpatient (OUT) | payer OTHER, SELFPAY ==
--- OUTSIDE RECORDS SUMMARY | 2024-06-26 08:22 | XMS_ITS | CCD ---
Author Organization [facility] Care Team Providers Care Beam Dyer Operator Name Role Phone Unavailable Primary Care Provider Unavailabl e AICHHOLZ, INTERNET RESEARCHER WHIT Consulting Unavailable AICHHOLZ, INTERNET RESEARCHER WHIT Attending Unavailable AICHHOLZ, INTERNET RESEARCHER WHIT Admitting Unavailable AICHHOLZ, INTERNET RESEARCHER WHIT Primary Care Unavailable AICHHOLZ, INTERNET RESEARCHER WHIT Admitting Unavailable AICHHOLZ, INTERNET RESEARCHER WHIT Primary Care Unavailable AICHHOLZ, INTERNET RESEARCHER WHIT Consulting Unavailable AICHHOLZ, INTERNET RESEARCHER WHIT Attending Unavailable AICHHOLZ, INTERNET RESEARCHER WHIT Admitting Unavailable AICHHOLZ, INTERNET RESEARCHER WHIT Primary Care Unavailable AICHHOLZ, INTERNET RESEARCHER WHIT Attending Unavailable DR NAOMIE THEODORE V Consulting Unavailable AICHHOLZ, INTERNET RESEARCHER WHIT Consulting Unavailable JAYASHREE, DR DONATO Admitting Unavailable AICHHOLZ, INTERNET RESEARCHER WHIT Primary Care Unavailable JAYASHREE, DR DONATO Attending Unavailable AICHHOLZ, INTERNET RESEARCHER WHIT Admitting Unavailable AICHHOLZ, INTERNET RESEARCHER WHIT Primary Care Unavailable AICHHOLZ, INTERNET RESEARCHER WHIT Attending Unavailable AICHHOLZ, INTERNET RESEARCHER WHIT Primary Care Unavailable DR FIDEL SMITH Attending Unavailable DR FIDEL SMITH Admitting Unavailable DR NAOMIE THEODORE V Consulting Unavailable DR FIDEL SMITH Consulting Unavailable HEIDI MEJIAS Consulting Unavailable Naomie Velasquez Consulting Unavailable SISTER, TE Consulting Unavailable AICHHOLZ, INTERNET RESEARCHER WHIT Primary Care Unavailable ONEIL LOPEZ Consulting Unavailable ONEIL LOPEZ Attending Unavailable ONEIL LOPEZ Admitting Unavailable Naomie Velasquez Consulting Unavailable DR MEY FARNSWORTH Attending Unavailable JAVAD, DR MATHIAS Admitting Unavailable AICHHOLZ, INTERNET RESEARCHER WHIT Primary Care Unavailable DR MEY FARNSWORTH Consulting Unavailable AICHHOLZ, INTERNET RESEARCHER WHIT Primary Care Unavailable DR LANDEN HEARN Consulting Unavailable DIOGENES MILLER Attending Unavailable DIOGENES MILLER Admitting Unavailable ZIA DESAI Consulting Unavailable AICHHOLZ, INTERNET RESEARCHER WHIT Admitting Unavailable AICHHOLZ, INTERNET RESEARCHER WHIT Consulting Unavailable AICHHOLZ, INTERNET RESEARCHER WHIT Attending Unavailable MACK GUAMAN Primary Care Unavailable Naomie Velasquez Consulting Unavailable AICHHOLZ, INTERNET RESEARCHER WHIT Primary Care Unavailable LING GAMING Attending Unavailable AMBERLY, LING Admitting Unavailable DR ZACH PEREZ Consulting Unavailable AMBERLYLING BARBOSA Consulting Unavailable AICHHOLZ, INTERNET RESEARCHER WHIT Admitting Unavailable AICHHOLZ, INTERNET RESEARCHER WHIT Primary Care Unavailable AICHHOLZ, INTERNET RESEARCHER WHIT Attending Unavailable AICHHOLZ, INTERNET RESEARCHER WHIT Primary Care Unavailable AICHHOLZ, INTERNET RESEARCHER WHIT Admitting Unavailable AICHHOLZ, INTERNET RESEARCHER WHIT Consulting Unavailable AICHHOLZ, INTERNET RESEARCHER WHIT Attending Unavailable Unavailable Primary Care Provider [...] Penicillins; Translations: [PENICILLINS] Drug Allergy 3 Swelling [facility] (11 sources) Penicillins Drug Allergy 3 Swelling [facility] (2 sources) Penicillins Drug allergy (disorder) 3 [facility] (20 sources) Chlorhexidine; Translations: [CHLORHEXIDINE] Drug Allergy 2 Itching [facility] (20 sources) Penicillin G Drug Allergy 3 Swelling, Rash [facility] (20 sources) Penicillins Drug Allergy 3 Rash, Swelling [facility] (1 source) Chlorhexidine; Translations: [CHLORHEXIDINE GLUCONATE] Drug Allergy 2 [facility] Repository Medications Current Medications Medication Drug Class(es) Dates Sig (Normalized) Sig (Original) acetaminophen 325 mg / HYDROcodone bitartrate 5 mg oral tablet (7 sources) Opioid Agonist Start: 03-26-2024 End: 03-31-2024 take 1 tablet by mouth every eight hours for pain HYDROcodone-acetami nophen ([place]) 5-325 MG tablet Indications: Cervical radiculopathy Take 1 tablet by mouth every 8 (eight) hours if needed for severe pain for up to 5 days 15 tablet 03/26/2024 03/31/2024 Active [id number] 200 actuat albuterol 0.09 mg/actuat metered dose [...] BREATH amitriptyline hydrochloride 10 mg oral tablet (13 sources) Tricyclic Antidepressant Start: End: take 1 tablet by mouth at bedtime amitriptyline (Elavil) 10 MG tablet Indications: Migraine with aura and without status migrainosus, not intractable (CMS/HCC) , Primary insomnia Take 1 tablet (10 mg) by mouth at bedtime 90 tablet 06/04/2024 09/02/2024 Active atorvastatin 20 mg oral tablet (20 sources) HMG-CoA Reductase Inhibitor Start: End: take 1 tablet by mouth at bedtime atorvastatin (Lipitor) 20 MG tablet Indications: Mixed hyperlipidemia (CMS/HCC) Take 1 tablet (20 mg) by mouth at bedtime 90 tablet 06/04/2024 09/02/2024 Active Start: 12-19-2023 take 1 tablet by isaak th at bedtime atorvastatin (Lipitor) 20 MG tablet Indications: Mixed hyperlipidemia (CMS/HCC) Take 1 tablet (20 mg) by mouth at bedtime 30 tablet 2 12/19/2023 Active baclofen 10 mg oral tablet (1 source) gamma-Aminobutyric Acid-ergic Agonist End: 06-04-2024 take 1 tablet by mouth every eight hours as needed baclofen (Lioresal) 10 MG tablet Take 10 mg by mouth every 8 (eight) hours if needed for muscle spasms Per [facility] pain mgmt 06/04/2024 Discontinued (Therapy completed) ciclopirox 80 mg/ml topical solution (20 sources) Start: 02-22-2024 End: 03-28-2024 ciclopirox (Penlac) 8 % solution Indications: Onychomycosis Apply topically at bedtime 6.6 mL 11 02/23/2024 03/26/2024 Active Start: 10-22-2021 Ciclopirox (LO PROX) 8 % solution Apply jublia TO affected toenails ONCE daily FOR 48 WEEKS 0 10/22/2021 Active Comment on above: Apply jublia TO affe cted toenails ONCE daily FOR 48 WEEKS DULoxetine 60 mg delayed release oral capsule (20 sources) Serotonin and Norepinephrine Reuptake Inhibitor Start: End: take 1 capsule by mouth once daily DULoxetine (Cymbalta) [address] capsule Indications: Anxiety and depression (CMS/HCC) Take 1 capsule (60 mg) by mouth Daily Discontinue the 30mg script 90 capsule 1 06/04/2024 09/02/2024 Active hydrocortisone 0.025 mg/mg topical ointment (20 sources) Corticosteroid Start: hydrocortisone 2.5 % ointment Indications: Allergic contact dermatitis due to cosmetics Apply topically 2 (two) times a day 20 g 11 02/22/2024 Active levothyroxine sodium 0.175 mg oral tablet (20 sources) l-Thyroxine Start: End: take 1 tablet by mouth three times weekly levothyroxine (Synthroid) 25 MCG tablet Indications: Hypothyroidism (acquired) (CMS/HCC) Take 1 tablet (25 mcg) by mouth 3 (three) times a week Take 1 pill every Tuesday, Tuesday, and Tuesday, and also take 175mcg dose EVERY DAY 36 tablet 1 06/04/2024 09/02/2024 Active Start: 03-07-2024 End: 09-23-2024 take 1 tablet by mouth in the morning levothyroxine (Synthroid, Levoxyl) 175 MCG tablet Indications: Hypothyroidism (acquired) (CMS/HCC) Take 1 tablet (175 mcg) by mouth in the morning. Take before meals. 175mcg pill every day, and then on Tuesday, Tuesday, and Tuesday take an additional 25mcg pill (separate pill). 30 tablet 2 06/25/2024 09/23/2024 Active Start: 03-05-2024 End: 04-04-2024 take 1 tablet by mouth before mealtime levothyroxine (Synthroid, Levoxyl) 150 MCG tablet Indications: Hypothyroidism (acquired) (CMS/HCC) Take 1 tablet (150 mcg) by mouth in the morning. Take before meals. 30 tablet 1 03/05/2024 03/07/2024 Discontinued (Ineffective) Start: 01-05-2024 take 1 tablet by isaak th before mealtime levothyroxine (Synthroid) 150 MCG tablet Indications: Hypothyroidism (acquired) (CMS/HCC) Take 1 tablet (150 mcg) by mouth in the morning. Take before meals. 30 tablet 1 01/05/2024 Active Start: 08-17-2021 levothyroxine 150 mcg cap End: 12-03-2021 levothyroxine (SYNTHROID) 11 2 mcg tablet Take 112 mcg by mouth. 0 12/03/2021 Discontinued Comment on above: Take 112 mcg by mout h. meloxicam 15 mg oral tablet (18 sources) Nonsteroidal Anti-inflammatory Drug Start: 04-17-2024 End: [...] 15 mg by mouth once daily. nystatin [id number] unt/ml oral suspension (1 source) Polyene Antifungal Start: 04-12-20 End: 04-26-20 nystatin (Mycostatin) [id number] UNIT/ML suspension Indications: Oral thrush Take 5 [...] on above: Take 40 mg by mouth. phentermine hydrochloride 37.5 mg oral tablet (19 sources) Sympathomimetic Amine Anorectic Start: End: take 1 tablet by mouth before mealtime phentermine (Adipex-P) 37.5 MG tablet Indications: Morbid obesity due to excess calories (CMS/HCC) Take 1 tablet (37.5 mg) by mouth in the morning. Take before meals. 30 tablet 02/29/2024 03/30/2024 Active predniSONE 10 mg oral tablet (7 sources) Start: End: take 1 tablet by mouth once daily, [...] Active terbinafine hydrochloride 10 mg/ml topical cream (20 sources) Allylamine Antifungal Start: terbinafine (LamISIL AT) 1 % cream Indications: Tinea pedis of left foot Apply topically 2 (two) times a day 42 g 11 02/22/2024 Active tiZANidine 4 mg oral tablet (20 sources) Central alpha-2 Adrenergic Agonist Start: End: take 1 tablet by mouth every [...] bedtime. traZODone hydrochloride 50 mg oral tablet (19 sources) Serotonin Reuptake Inhibitor Start: 4 End: 4 take 2 tablets by mouth at bedtime traZODone (Desyrel) 50 MG tablet Indications: Primary insomnia Take 2 tablets (100 mg) by mouth at bedtime 180 tablet 1 03/15/2024 06/13/2024 Active ubrogepant 100 mg oral tablet (3 sources) Start: End: 4 take 1 tablet by mouth once daily [...] daily. cyclobenzaprine hydrochloride 10 mg oral tablet (19 sources) Muscle Relaxant Start: 01-16-2024 End: 03-28-2024 cyclobenzaprine (Flexeril) 10 MG tablet Indications: Lumbar radiculopathy Take 1 tablet (10 mg) by mouth as needed at bedtime for muscle spasms 30 tablet 1 02/14/2024 03/26/2024 Discontinued (Therapy completed) End: 12-03-2021 cyclobenzaprine (FLEXERIL) [...] sodium 0.005 mg oral tablet (1 source) l-Triiodothyroni ne End: 12-04-19 liothyronine (CYTOMEL) 5 mcg tablet Take 5 mcg by mouth. 0 12/03/2021 Discontinued Comment on above: Take 5 mcg by mouth. methocarbamol 500 mg oral tablet (2 sources) Muscle Relaxant Start: 04-17-20 End: 05-28-20 take 1 tablet by mouth every eight hours as needed methocarbamol (Robaxin) 500 MG tablet Take 500 mg by mouth every 8 (eight) hours if needed for muscle spasms 04/17/2024 05/28/2024 Discontinued (Therapy completed) 0.5 ml SUMAtriptan 12 mg/ml injection (18 sources) Serotonin-1b and Serotonin-1d Receptor Agonist End: 03-28-20 inject 6 mg by subcutaneous injection once SUMAtriptan (Imitrex) 6 MG/0.5ML solution Inject 6 mg under the skin 1 (one) time if needed for migraine. 03/28/2024 Discontinued (Therapy completed) Problems Active Problems Problem Classification Problem Date Documented Date Episodic/Chronic Anxiety disorders (20 sources) Mixed anxiety and depressive disorder; Translations: [Anxiety disorder, unspecified] Onset: 05-24-2023 05-24-2023 Chronic Cardiac dysrhythmias (20 sources) Supraventricular tachycardia; Translations: [Supraventricular tachycardia, unspecified] [...] [Hyperglycemia, unspecified] Episodic Disorders of lipid metabolism (20 sources) Mixed hyperlipidemia; Translations: [Mixed hyperlipidemia] Onset: 09-05-2023 09-05-2023 Chronic Esophageal disorders (20 sources) Gastroesophageal reflux disease; Translations: [Gastro-esophageal reflux [...] DZ] Onset: 07-19-2022 Episodic Malaise and fatigue (20 sources) Fatigue; Translations: [Chronic fatigue, unspecified] Onset: 09-05-2023 09-05-2023 Chronic Miscellaneous mental health disorders (20 sources) Primary insomnia; Translations: [Primary insomnia] Onset: 09-05-2023 03-28-2024 Chronic Mood disorders (20 sources) Moderate recurrent major depression; Translations: [Major depressive disorder, recurrent, moderate] Onset: 09-05-2023 03-08-2024 Chronic Mycoses (20 sources) Candidiasis of skin; Translations: [Candidiasis of skin and nail] Onset: 05-24-2023 05-24-2023 Episodic Other aftercare (1 source) Other snf (current) drug therapy; Translations: [OTH PRISON CURRENT DRUG THERAPY] Onset: 05-31-2022 Episodic Other circulatory disease (19 sources) Transient hypertension; Translations: [Elevated blood-pressure reading, without diagnosis of hypertension] Onset: 03-26-2024 03-28-2024 Episodic Other connective tissue disease (6 sources) Spasm; Translations: [Other muscle spasm] Onset: 05-28-2024 05-28-2024 Episodic Other female genital disorders (20 sources) Simple endometrial glandular hyperplasia without atypia; Translations: [Benign endometrial hyperplasia] Onset: 09-05-2023 09-05-2023 Chronic Other nervous system disorders (20 sources) Cervical myelopathy; Translations: [Disease of spinal cord, unspecified] Onset: 11-10-2018 09-05-2023 Chronic Other nutritional; endocrine; and metabolic disorders (20 sources) Morbid obesity; Translations: [Morbid (severe) obesity due to excess calories] Onset: 09-05-2023 03-28-2024 Chronic Other upper respiratory disease (20 sources) Allergic rhinitis; Translations: [Allergic rhinitis, unspecified] Onset: 09-05-2023 09-05-2023 Chronic Residual codes; unclassified (1 source) Acquired absence of both cervix and uterus; Translations: [ACQUIRED ABSENCE BOTH CERVIX AND UTERUS] Onset: 05-31-2022 Episodic Spondylosis; intervertebral disc disorders; other back problems (20 sources) Degeneration of lumbosacral intervertebral disc; Translations: [Other intervertebral disc degeneration, lumbosacral region] Onset: 11-15-2018 Chronic Substance-related disorders (20 sources) Nicotine dependence, cigarettes, uncomplicated; Translations: [Smoker] [...] UNSPECIFIED; Translations: [COUGH, UNSPECIFIED] Onset: 01-18-2022 Unclassified (20 sources) Patient on antidepressant monitoring plan Onset: 05-24-2023 05-24-2023 Unclassified (20 sources) Baseline PHQ-9 Onset: 05-24-2023 05-24-2023 Viral infection (4 sources) COVID-19; Translations: [COVID-19] Onset: 07-23-2021 Past or Other Problems Problem Classification Problem Date Documented Date Episodic/Chronic Allergic reactions (20 sources) Idiopathic urticaria; Translations: [Urticaria, unspecified] Onset: 09-05-2023 09-05-2023 Episodic Coma; stupor; and brain damage (20 sources) Daytime somnolence; Translations: [Somnolence] Onset: 09-05-2023 09-05-2023 Episodic Genitourinary symptoms and ill-defined conditions (20 sources) Urinary symptoms ; Translations: [Unspecified symptoms and signs involving the genitourinary system] Onset: 09-19-2023 09-19-2023 Episodic Malaise and fatigue (20 sources) Fatigue; Translations: [Other fatigue] Onset: 12-12-2023 12-12-2023 Episodic Nonmalignant breast conditions (20 sources) Lump in left breast; Translations: [Unspecified lump in the left breast, unspecified quadrant] Onset: 09-05-2023 09-05-2023 Episodic Other connective tissue disease (12 sources) History of cervical spine fusion; Translations: [Arthrodesis status] Onset: 12-14-2021 Episodic Other connective tissue disease (4 sources) Pain in left foot; Translations: [PAIN IN LEFT FOOT] Onset: 11-19-2021 Episodic Other connective tissue disease (20 sources) Radial styloid tenosynovitis; Translations: [Radial styloid tenosynovitis [de Quervain]] Onset: 09-05-2023 Resolved: 09-05-2023 09-05-2023 Episodic Other lower respiratory disease (3 sources) Shortness of breath; Translations: [SHORTNESS OF BREATH] Onset: 01-14-2022 Episodic Other screening for suspected conditions (not mental disorders or infectious disease) (20 sources) Patient encounter status; Translations: [Encounter for screening mammogram for malignant neoplasm of breast] Onset: 01-05-2024 01-05-2024 Episodic Other skin disorders (2 sources) Seborrheic keratosis; Translations: [Other seborrheic keratosis] 02-22-2024 Episodic Other upper respiratory infections (20 sources) Acute maxillary sinusitis; Translations: [Acute maxillary sinusitis, unspecified] Onset: 05-24-2023 Resolved: 09-05-2023 09-05-2023 Episodic Residual codes; unclassified (20 sources) History of noncompliance with medication regimen; [...] lumbar region] Onset: 11-15-2018 Episodic Thyroid disorders (20 sources) Sick-euthyroid syndrome; Translations: [Sick-euthyroid syndrome] Onset: 09-05-2023 09-05-2023 Episodic Unclassified (1 source) CONTACT W/AND (SUSP) EXPOS COVID-19; Translations: [CONTACT W/AND (SUSP) EXPOS COVID-19] Onset: 07-15-2022 Unclassified (1 source) LOW BACK PAIN, UNSPECIFIED; Translations: [LOW BACK PAIN, UNSPECIFIED] Onset: 02-03-2022 Results Test Name Value Interpretation Reference Range Facility 36on 06-14-2024 36 Approving, but needs appt for additional refills. [facility] 36on 06-12-2024 36 Approving, but needs appt for additional refills. [facility] ALL THYROID STIM HORMONEon 07-10-2023 Interpretation and review of laboratory results Abnormal [facility] TSH Qn 7.43 m[IU]/L [facility] ALL THYROXINE (T4) FREEon Free T4 [Mass/Vol] 1.02 ng/dL 0.76 - 1. 46 ng/dL [facility] 36on 05-08-2024 36 [...] I updated JOSE Fernández with this information. [facility] Orders Onlyon 04-16-2024 Orders Only [id number] Nato Short 1970 F Date Provider Department Center 04/16/[id number] VAZQUEZ [facility] SURG [address] Family History Family history unknown: Yes [facility] 36on 04-13-2024 36 Patient is scheduled for neck surgery and is having increasing pain radiating down and she would like to know what she should do since dr orozco is booked until her surgery, [facility] 36on 04-09-2024 36 Approving, but needs appt for additional refills. [facility] 36on 03-09-2024 36 Approving, but needs appt for additional refills. [facility] Follow-Upon 03-09-2024 Follow-Up [id number] Nato Short 1970 F Date Provider Department Center 03/09/2024 266-LAINE OROZCO MP ORTHO MPORTHO Family History Family history unknown: Yes Level of Service:52784 [place] OFFICE/OUTPATIENT ESTABLISHED MOD MDM 30 MIN () Reason for Visit and Comments: Pain [136] - New patient [facility] 36on 03-07-2024 36 Patient called stating that she was told that she would need a cervical revision by Dr Orozco. Patient would like to schedule this surgery after eddie if possible. Patient also states that she has headaches 6 days a week all day long due to the pain. Patient is asking for referral to pain management in [place] until she can have the surgery. Patient requesting call back. Please advise. Thank you. [facility] ALL T3 FREEon 03-07-2024 Free T3 [Mass/Vol] 2.08 pg/mL Low 2.18 - 3. 98 pg/mL [facility] ALL THYROID STIM HORMONEon 0 03-07-2024 TSH Qn 14.169 m[IU]/L High [facility] No Panel Informationon 03-07 Interpretation and review of laboratory results Abnormal [facility] CT CERVICAL SPINE WO CONTRAS [...] Maddie Simpson MD 02/13/23 Final result Normal [facility] Covid-19 PCR (CVDTBH)on 06-27 SARS-CoV-2 (COVID-19) RNA RENÉ+probe Ql (Unsp spec) Not detected Normal NOT DETECTED [facility] Comment on above: Result Comment: This test is not yet approved or cleared by the [place] FDA. When there are no FDA-approved or cleared tests available, and other criteria are met, FDA can make tests available under an emergency access mechanism called an Emergency Use Authorization (EUA). The EUA for this test is supported by the Cold Roll Inspector of Health and Human Service's (HHS's) declaration [...] SARS-CoV-2. Performed By: #### C VDTB #### [facility] [address] [place] [address] Dr. Radha Suarez INFLUENZA A AND B AGon 07-15 INFLUANEGH SEE BELOW Normal [facility] Comment on above: Result Comment: Nega tive for Flu A protein angiten. Infection due to Flu A cannot be ruled out. Flu A angiten in the sample may be below the detection limit of the test. Performed By: #### C VDTBH #### [facility] [address] [place] [address] Dr. Radha Suarez [facility] SEE BELOW Normal [facility] Comment on above: Result Comment: Nega tive for Flu B protein antigen. Infection due to Flu B cannot be ruled out. Flu B antigen in the sample may be below the detection limit of the test. Performed By: #### C VDTBH #### [facility] [address] [place] [address] Dr. Radha Suarez INFLUENZA A AG Negative Normal NEGATIVE SEE COMMENT [facility] Comment on above: Performed By: #### C VDTBH #### [facility] [address] [place] [address] Dr. Radha Suarez INFLUENZA B AG Negative Normal NEGATIVE SEE COMMENT [facility] Comment on above: Performed By: #### C VDTBH #### [facility] [address] [place] [address] Dr. Radha Suarez CULTURE WOUNDon 06-01-2022 CULTURE WOUND Isolate 1 Pseudomonas aeruginosa Light growth of ORGANISM 1 Pseudomonas aeruginosa ANTIBIOTIC M.I.C RX STATUS Piperacillin/Tazobac iglesias <=4 S F Ceftazidime <=1 S F Imipenem 1 S F Amikacin 4 S F Gentamicin <=1 S F Tobramycin <=1 S F Ciprofloxacin <=0.25 S F Levofloxacin <=0.12 S F Normal [facility] Comment on above: Performed By: #### C VDTBH #### [facility] [address] [place] [address] Dr. Radha Suarez CBC AUTO DIFFon 04-16-2022 BASO # 0.1 103/ul Normal 0.0-0.[address] [facility] Comment on above: Performed By: #### C BC #### [facility] [address] [place] [address] Dr. Radha Suarez Basophils/100 WBC (Bld) 0.8 % Normal 0.2-2.[address] [facility] Comment on above: Performed By: #### C BC #### [facility] [address] [place] [address] Dr. Radha Suarez EO # 0.1 103/ul Normal 0.0-0.[address] [facility] Comment on above: Performed By: #### C BC #### [facility] [address] [place] [address] Dr. Radha Suarez Eosinophils/100 WBC (Bld) 0.8 % Critically low 0.9-7.[address] [facility] Comment on above: Performed By: #### C BC #### [facility] [address] [place] [address] Dr. Radha Suarez Erythrocyte distribution width (RBC) [Ratio] 14.3 % Normal 11.0-15.[address] [facility] Comment on above: Performed By: #### C BC #### [facility] [address] [place] [address] Dr. Radha Suarez Hematocrit (Bld) [Volume fraction] 44.4 % Normal 36.0-48.[address] [facility] Comment on above: Performed By: #### C BC #### [facility] [address] [place] [address] Dr. Radha Suarez Hemoglobin (Bld) [Mass/Vol] 14.6 g/dL Normal 12.0-16.[address] [facility] Comment on above: Performed By: #### C BC #### [facility] [address] [place] [address] Dr. Radha Suarez IG # 0.02 10e3/ul Normal 0.00-0.[address] [facility] Comment on above: Performed By: #### C BC #### [facility] [address] [place] [address] Dr. Radha Suarez IG % 0.3 % Normal 0.0-0.5 [facility] Comment on above: Performed By: #### C BC #### [facility] [address] [place] [address] Dr. Radha Suarez LYMPH # 2.4 103/ul Normal 1.2-3.[address] [facility] Comment on above: Performed By: #### C BC #### [facility] [address] [place] [address] Dr. Radha Suarez Lymphocytes/100 WBC (Bld) 31.6 % Normal 20.5-60.[address] [facility] Comment on above: Performed By: #### C BC #### [facility] [address] [place] [address] Dr. Radha Suarez MANUAL DIFF REQ NO Normal [facility] Comment on above: Performed By: #### C BC #### [facility] [address] [place] [address] Dr. Radha Suarez MCH (RBC) [Entitic mass] 30.5 pg Normal 26.7-34.[address] [facility] Comment on above: Performed By: #### C BC #### [facility] [address] [place] [address] Dr. Radha Suarez MCHC (RBC) [Mass/Vol] 32.9 g/dL Normal 29.9-35.[address] [facility] Comment on above: Performed By: #### C BC #### [facility] [address] [place] [address] Dr. Radha Suarez MCV (RBC) [Entitic vol] 92.9 fL Normal 81.0-99.[address] [facility] Comment on above: Performed By: #### C BC #### [facility] [address] [place] [address] Dr. Radha Suarez MONO # 0.6 103/ul Normal 0.3-0.[address] [facility] Comment on above: Performed By: #### C BC #### [facility] [address] [place] [address] Dr. Radha Suarez Monocytes/100 WBC (Bld) 7.8 % Normal 1.7-12.[address] [facility] Comment on above: Performed By: #### C BC #### [facility] [address] [place] [address] Dr. Radha Suarez NEUT # 4.5 103/ul Normal 1.4-6.[address] [facility] Comment on above: Performed By: #### C BC #### [facility] [address] [place] [address] Dr. Radha Suarez Neutrophils/100 WBC (Bld) 58.7 % Normal 43.0-75.0 [facility] Comment on above: Performed By: #### C BC #### [facility] [address] [address] [address] Radha Suarez Platelet mean volume (Bld) [Entitic vol] 9.1 fL Critically low 9.5-13.[address] [facility] Comment on above: Performed By: #### C BC #### [facility] [address] [address] [address] Radha Suarez PLT 346 103/ul Normal 150-[address] [facility] Comment on above: Performed By: #### C BC #### [facility] [address] [place] [address] Dr. Radha Suarez RBC 4.78 106/ul Normal 4.20-5.[address] [facility] Comment on above: Performed By: #### C BC #### [facility] [address] [place] [address] Dr. Radha Suarez WBC 7.6 103/ul Normal 4.0-11.[address] [facility] Comment on above: Performed By: #### C BC #### [facility] [address] [place] [address] Dr. Radha Suarez FREE T3on 04-16-2022 FREE T3 2.50 pg/mlL Normal 2.18-3.[address] [facility] Comment on above: Performed By: #### C BC #### [facility] [address] [place] [address] Dr. Radha Suarez FREE T4on 04-16-2022 Free T4 [Mass/Vol] 1.33 ng/dL Normal 0.76-1.46 [facility] Comment on above: Performed By: #### F T4 #### [facility] [address] [place] [address] Dr. Radha Suarez PROF CHEM 8 (BAS METB)on Anion gap [Moles/Vol] 8.7 mmol/L Normal [facility] Comment on above: Performed By: #### C BC #### [facility] [address] [place] [address] Dr. Radha Suarez Calcium [Mass/Vol] 9.4 mg/dL Normal 8.5-10.1 [facility] Comment on above: Performed By: #### C BC #### [facility] [address] [place] [address] Dr. Radha Suarez Chloride [Moles/Vol] 101 mmol/L Normal 98-107 [facility] Comment on above: Performed By: #### C BC #### [facility] [address] [place] [address] Dr. Radha Suarez CO2 [Moles/Vol] 30.5 mmol/L Normal 21.0-32.0 [facility] Comment on above: Performed By: #### C BC #### [facility] [address] [place] [address] Dr. Radha Suarez Creatinine [Mass/Vol] 0.72 mg/dL Normal 0.55-1.[address] [facility] Comment on above: Performed By: #### C BC #### [facility] [address] [place] [address] Dr. Radha Suarez EGFR-AF [place] >60 Normal >=60 [facility] Comment on above: Performed By: #### C BC #### [facility] [address] [place] [address] Dr. Radha Suarez EGFR-NON AF [place] >60 Normal >=[address] [facility] Comment on above: Performed By: #### C BC #### [facility] [address] [place] [address] Dr. Radha Suarez Glucose [Mass/Vol] 99 mg/dL Normal 74-106 [facility] Comment on above: Performed By: #### C BC #### [facility] [address] [place] [address] Dr. Radha Suarez Potassium [Moles/Vol] 4.2 mmol/L Normal 3.5-5.1 [facility] Comment on above: Performed By: #### C BC #### [facility] [address] [place] [address] Dr. Radha Suarez Sodium [Moles/Vol] 136 mmol/L Normal 136-145 [facility] Comment on above: Performed By: #### C BC #### [facility] [address] [place] [address] Dr. Radha Suarez Urea nitrogen [Mass/Vol] 12.0 mg/dL Normal 7.0-18.[address] [facility] Comment on above: Performed By: #### C BC #### [facility] [address] [place] [address] Dr. Radha Suarez Urea nitrogen/Creatinine [Mass ratio] 16.7 mg/mg Normal [facility] Comment on above: Performed By: #### C BC #### [facility] [address] [place] [address] Dr. Radha Suarez PROTIMEon 04-16-2022 INR Coag (PPP) [Relative time] 0.98 {INR} Normal [facility] Comment on above: Performed By: #### P TT, PT #### [facility] [address] [place] [address] Dr. Radha Suarez INR GUIDELINES SEE BELOW Normal [facility] Comment on above: Result Comment: DEVI RED INR: 2.0 - 3.0 CONDITIONS NOT LISTED BELOW 2.5 - 3.5 FOR PROSTHETIC HEART VALVE REPLACEMENT 2.5 - 3.5 RECURRENT THROMBOSIS Performed By: #### P TT, PT #### [facility] [address] [place] [address] Dr. Radha Suarez PT Coag (PPP) [Time] 10.6 s Normal 9.0-11.6 [facility] Comment on above: Performed By: #### P TT, PT #### [facility] [address] [place] [address] Dr. Radha Suarez PTTon 04-16-2022 aPTT Coag (Bld) [Time] 27.9 s Normal 22.3-36.2 [facility] Comment on above: Performed By: #### P TT, PT #### [facility] [address] [place] [address] Dr. Radha Suarez TSHon 04-16-2022 TSH 0.206 uIU/mL Critically low 0.358-3.740 [facility] Comment on above: Performed By: #### C BC #### [facility] [address] [place] [address] Dr. Radha Suarez FREE T4on 03-08-2022 Free T4 [Mass/Vol] 1.59 ng/dL Critically high 0.76-1.46 [facility] Comment on above: Performed By: #### C VDTBH #### [facility] [address] [place] [address] Dr. Radha Suarez TSHon 03-08-2022 TSH 0.107 uIU/mL Critically low 0.358-3.740 [facility] Comment on above: Performed By: #### C VDTBH #### [facility] [address] [place] [address] Dr. Radha Suarez LUMBAR SPINE 4 OR 5 Son LUMBAR SPINE 4 OR 5 [facility] Department of Radiology [address] [place] [id number] Patient Name: NATO SHORT : 1970 Sex: F Age: Race: White Pt. Location: Patient Status: D Ordered Date: 03/03/2022 2:10:00 PM Completed Date: 03/03/2022 02:31 PM Requesting Provider: LAINE OROZCO Attending Provider: LAINE OROZCO Report Copy To: Signs & Symptoms: M54.50 Low back pain, unspecified I10 History: [place] Comments: Evaluate Exam: LUMBAR SPINE 4 OR [...] report. Electronically signed: Anjum Quevedo. Transcribed by: [email or web address], User Resident: ANJUM CLIFTON Electronically Signed by: ANJUM QUEVEDO @ 03/04/2022 09:13 AM I personally read this/these film(s) with this resident Normal [facility] Comment on above: Order Comment: Evalu ate CBC AUTO DIFFon 02-04-2022 BASO # 0.0 103/ul Normal 0.0-0.[address] [facility] Comment on above: Performed By: #### C BC #### [facility] [address] [place] [address] Dr. Radha Suarez Basophils/100 WBC (Bld) 0.1 % Critically low 0.2-2.[address] [facility] Comment on above: Performed By: #### C BC #### [facility] [address] [place] [address] Dr. Radha Suarez EO # 0.0 103/ul Normal 0.0-0.[address] [facility] Comment on above: Performed By: #### C BC #### [facility] [address] [address] [address] Radha Suarez Eosinophils/100 WBC (Bld) 0.1 % Critically low 0.9-7.[address] [facility] Comment on above: Performed By: #### C BC #### [facility] [address] [address] [address] Radha Suarez Erythrocyte distribution width (RBC) [Ratio] 14.4 % Normal 11.0-15.[address] [facility] Comment on above: Performed By: #### C BC #### [facility] [address] [place] [address] Dr. Radha Suarez Hematocrit (Bld) [Volume fraction] 41.1 % Normal 36.0-48.[address] [facility] Comment on above: Performed By: #### C BC #### [facility] [address] [place] [address] Dr. Radha Suarez Hemoglobin (Bld) [Mass/Vol] 13.3 g/dL Normal 12.0-16.[address] [facility] Comment on above: Performed By: #### C BC #### [facility] [address] [place] [address] Dr. Radha Suarez IG # 0.09 10e3/ul Critically high 0.00-0.03 [facility] Comment on above: Performed By: #### C BC #### [facility] [address] [place] [address] Dr. Radha Suarez IG % 0.6 % Critically high 0.0-0.5 [facility] Comment on above: Performed By: #### C BC #### [facility] [address] [place] [address] Dr. Radha Suarez LYMPH # 1.1 103/ul Critically low 1.2-3.8 [facility] Comment on above: Performed By: #### C BC #### [facility] [address] [place] [address] Dr. Radha Suarez Lymphocytes/100 WBC (Bld) 7.6 % Critically low 20.5-60.[address] [facility] Comment on above: Performed By: #### C BC #### [facility] [address] [place] [address] Dr. Radha Suarez MANUAL DIFF REQ NO Normal [facility] Comment on above: Performed By: #### C BC #### [facility] [address] [place] [address] Dr. Radha Suarez MCH (RBC) [Entitic mass] 30.5 pg Normal 26.7-34.[address] [facility] Comment on above: Performed By: #### C BC #### [facility] [address] [place] [address] Dr. Radha Suarez MCHC (RBC) [Mass/Vol] 32.4 g/dL Normal 29.9-35.[address] [facility] Comment on above: Performed By: #### C BC #### [facility] [address] [place] [address] Dr. Radha Suarez MCV (RBC) [Entitic vol] 94.3 fL Normal 81.0-99.[address] [facility] Comment on above: Performed By: #### C BC #### [facility] [address] [place] [address] Dr. Radha Suarez MONO # 0.4 103/ul Normal 0.3-0.[address] [facility] Comment on above: Performed By: #### C BC #### [facility] [address] [place] [address] Dr. Radha Suarez Monocytes/100 WBC (Bld) 2.4 % Normal 1.7-12.[address] [facility] Comment on above: Performed By: #### C BC #### [facility] [address] [place] [address] Dr. Radha Suarez NEUT # 13.2 103/ul Critically high 1.4-6.5 [facility] Comment on above: Performed By: #### C BC #### [facility] [address] [place] [address] Dr. Radha Suarez Neutrophils/100 WBC (Bld) 89.2 % Critically high 43.0-75.[address] [facility] Comment on above: Performed By: #### C BC #### [facility] [address] [address] [address] Radha Suarez Platelet mean volume (Bld) [Entitic vol] 9.3 fL Critically low 9.5-13.[address] [facility] Comment on above: Performed By: #### C BC #### [facility] [address] [address] [address] Radha Suarez PLT 358 103/ul Normal 150-450 [facility] Comment on above: Performed By: #### C BC #### [facility] [address] [address] [address] Radha Suarez RBC 4.36 106/ul Normal 4.20-5.[address] [facility] Comment on above: Performed By: #### C BC #### [facility] [address] [place] [address] Dr. Radha Suarez WBC 14.8 103/ul Critically high 4.0-11.0 [facility] Comment on above: Performed By: #### C BC #### [facility] [address] [place] [address] Dr. Radha Suarez PROF CHEM 8 (BAS METB)on Anion gap [Moles/Vol] 10.7 mmol/L Normal [facility] Comment on above: Performed By: #### B MP #### [facility] [address] [place] [address] Dr. Radha Suarez Calcium [Mass/Vol] 8.6 mg/dL Normal 8.5-10.1 [facility] Comment on above: Performed By: #### B MP #### [facility] [address] [place] [address] Dr. Radha Suarez Chloride [Moles/Vol] 103 mmol/L Normal 98-[address] [facility] Comment on above: Performed By: #### B MP #### [facility] [address] [place] [address] Dr. Radha Suarez CO2 [Moles/Vol] 27.2 mmol/L Normal 21.0-32.0 [facility] Comment on above: Performed By: #### B MP #### [facility] [address] [address] [address] Radha Suarez Creatinine [Mass/Vol] 0.82 mg/dL Normal 0.55-1.[address] [facility] Comment on above: Performed By: #### B MP #### [facility] [address] [address] [address] Radha Suarez EGFR-AF [place] >60 Normal >=60 [facility] Comment on above: Performed By: #### B MP #### [facility] [address] [address] [address] Radha Suarez EGFR-NON AF [place] >60 Normal >=[address] [facility] Comment on above: Performed By: #### B MP #### [facility] [address] [address] [address] Radha Suarez Glucose [Mass/Vol] 158 mg/dL Critically high 74-106 [facility] Comment on above: Performed By: #### B MP #### [facility] [address] [address] [address] Radha Suarez Potassium [Moles/Vol] 3.9 mmol/L Normal 3.5-5.[address] [facility] Comment on above: Performed By: #### B MP #### [facility] [address] [place] [address] Dr. Radha Suarez Sodium [Moles/Vol] 137 mmol/L Normal 136-145 [facility] Comment on above: Performed By: #### B MP #### [facility] [address] [address] [address] Radha Suarez Urea nitrogen [Mass/Vol] 16.0 mg/dL Normal 7.0-18.[address] [facility] Comment on above: Performed By: #### B MP #### [facility] [address] [place] [address] Dr. Radha Suarez Urea nitrogen/Creatinine [Mass ratio] 19.5 mg/mg Normal [facility] Comment on above: Performed By: #### B MP #### [facility] [address] [place] [address] Dr. Radha Suarez CBC AUTO DIFFon 02-03-2022 BASO # 0.0 103/ul Normal 0.0-0.1 [facility] Comment on above: Performed By: #### C VDTBH #### [facility] [address] [place] [address] Dr. Radha Suarez Basophils/100 WBC (Bld) 0.3 % Normal 0.2-2.0 [facility] Comment on above: Performed By: #### C VDTBH #### [facility] [address] [place] [address] Dr. Radha Suarez EO # 0.0 103/ul Normal 0.0-0.7 [facility] Comment on above: Performed By: #### C VDTBH #### [facility] [address] [place] [address] Dr. Radha Suarez Eosinophils/100 WBC (Bld) 0.0 % Critically low 0.9-7.[address] [facility] Comment on above: Performed By: #### C VDTBH #### [facility] [address] [place] [address] Dr. Radha Suarez Erythrocyte distribution width (RBC) [Ratio] 14.2 % Normal 11.0-15.[address] [facility] Comment on above: Performed By: #### C VDTBH #### [facility] [address] [place] [address] Dr. Radha Suarez Hematocrit (Bld) [Volume fraction] 43.2 % Normal 36.0-48.[address] [facility] Comment on above: Performed By: #### C VDTBH #### [facility] [address] [place] [address] Dr. Radha Suarez Hemoglobin (Bld) [Mass/Vol] 13.8 g/dL Normal 12.0-16.0 [facility] Comment on above: Performed By: #### C VDTBH #### [facility] [address] [place] [address] Dr. Radha Suarez IG # 0.02 10e3/ul Normal 0.00-0.03 [facility] Comment on above: Performed By: #### C VDTBH #### [facility] [address] [address] [address] Radha Suarez IG % 0.3 % Normal 0.0-0.5 [facility] Comment on above: Performed By: #### C VDTBH #### [facility] [address] [address] [address] Radha Suarez LYMPH # 0.7 103/ul Critically low 1.2-3.8 [facility] Comment on above: Performed By: #### C VDTBH #### [facility] [address] [address] [address] Radha Suarez Lymphocytes/100 WBC (Bld) 9.8 % Critically low 20.5-60.0 [facility] Comment on above: Performed By: #### C VDTBH #### [facility] [address] [place] [address] Dr. Radha Suarez MANUAL DIFF REQ NO Normal [facility] Comment on above: Performed By: #### C VDTBH #### [facility] [address] [place] [address] Dr. Radha Suarez MCH (RBC) [Entitic mass] 29.8 pg Normal 26.7-34.[address] [facility] Comment on above: Performed By: #### C VDTBH #### [facility] [address] [place] [address] Dr. Radha Suarez MCHC (RBC) [Mass/Vol] 31.9 g/dL Normal 29.9-35.2 [facility] Comment on above: Performed By: #### C VDTBH #### [facility] [address] [place] [address] Dr. Radha Suarez MCV (RBC) [Entitic vol] 93.3 fL Normal 81.0-99.0 [facility] Comment on above: Performed By: #### C VDTBH #### [facility] [address] [place] [address] Dr. Radha Suarez MONO # 0.1 103/ul Critically low 0.3-0.8 [facility] Comment on above: Performed By: #### C VDTBH #### [facility] [address] [address] [address] Radha Suarez Monocytes/100 WBC (Bld) 0.8 % Critically low 1.7-12.[address] [facility] Comment on above: Performed By: #### C VDTBH #### [facility] [address] [place] [address] Dr. Radha Suarez NEUT # 6.6 103/ul Critically high 1.4-6.5 [facility] Comment on above: Performed By: #### C VDTBH #### [facility] [address] [place] [address] Dr. Radha Suarez Neutrophils/100 WBC (Bld) 88.8 % Critically high 43.0-75.[address] [facility] Comment on above: Performed By: #### C VDTBH #### [facility] [address] [place] [address] Dr. Radha Suarez Platelet mean volume (Bld) [Entitic vol] 9.2 fL Critically low 9.5-13.[address] [facility] Comment on above: Performed By: #### C VDTBH #### [facility] [address] [place] [address] Dr. Radha Suarez PLT 368 103/ul Normal 150-[address] [facility] Comment on above: Performed By: #### C VDTBH #### [facility] [address] [place] [address] Dr. Radha Suarez RBC 4.63 106/ul Normal 4.20-5.40 [facility] Comment on above: Performed By: #### C VDTBH #### [facility] [address] [place] [address] Dr. Radha Suarez WBC 7.4 103/ul Normal 4.0-11.0 [facility] Comment on above: Performed By: #### C VDTBH #### [facility] [address] [place] [address] Dr. Radha Suarez BASO # 0.0 103/ul Normal 0.0-0.1 [facility] Comment on above: Performed By: #### C BC #### [facility] [address] [address] [address] Radha Suarez Basophils/100 WBC (Bld) 0.2 % Normal 0.2-2.[address] [facility] Comment on above: Performed By: #### C BC #### [facility] [address] [address] [address] Radha Suarez EO # 0.0 103/ul Normal 0.0-0.7 [facility] Comment on above: Performed By: #### C BC #### [facility] [address] [place] [address] Dr. Radha Suarez Eosinophils/100 WBC (Bld) 0.2 % Critically low 0.9-7.[address] [facility] Comment on above: Performed By: #### C BC #### [facility] [address] [place] [address] Dr. Radha Suarez Erythrocyte distribution width (RBC) [Ratio] 14.3 % Normal 11.0-15.[address] [facility] Comment on above: Performed By: #### C BC #### [facility] [address] [place] [address] Dr. Radha Suarez Hematocrit (Bld) [Volume fraction] 46.6 % Normal 36.0-48.[address] [facility] Comment on above: Performed By: #### C BC #### [facility] [address] [place] [address] Dr. Radha Suarez Hemoglobin (Bld) [Mass/Vol] 15.5 g/dL Normal 12.0-16.[address] [facility] Comment on above: Performed By: #### C BC #### [facility] [address] [place] [address] Dr. Radha Suarez IG # 0.06 10e3/ul Critically high 0.00-0.03 [facility] Comment on above: Performed By: #### C BC #### [facility] [address] [place] [address] Dr. Radha Suarez IG % 0.5 % Normal 0.0-0.[address] [facility] Comment on above: Performed By: #### C BC #### [facility] [address] [address] [address] Radha Suarez LYMPH # 0.9 103/ul Critically low 1.2-3.8 [facility] Comment on above: Performed By: #### C BC #### [facility] [address] [address] [address] Radha Suarez Lymphocytes/100 WBC (Bld) 7.2 % Critically low 20.5-60.0 [facility] Comment on above: Performed By: #### C BC #### [facility] [address] [address] [address] Radha Suarez MANUAL DIFF REQ NO Normal [facility] Comment on above: Performed By: #### C BC #### [facility] [address] [place] [address] Dr. Radha Suarez MCH (RBC) [Entitic mass] 30.7 pg Normal 26.7-34.[address] [facility] Comment on above: Performed By: #### C BC #### [facility] [address] [place] [address] Dr. Radha Suarez MCHC (RBC) [Mass/Vol] 33.3 g/dL Normal 29.9-35.2 [facility] Comment on above: Performed By: #### C BC #### [facility] [address] [place] [address] Dr. Radha Suarez MCV (RBC) [Entitic vol] 92.3 fL Normal 81.0-99.0 [facility] Comment on above: Performed By: #### C BC #### [facility] [address] [place] [address] Dr. Radha Suarez MONO # 0.1 103/ul Critically low 0.3-0.8 [facility] Comment on above: Performed By: #### C BC #### [facility] [address] [place] [address] Dr. Radha Suarez Monocytes/100 WBC (Bld) 0.7 % Critically low 1.7-12.0 [facility] Comment on above: Performed By: #### C BC #### [facility] [address] [address] [address] Radha Suarez NEUT # 11.7 103/ul Critically high 1.4-6.5 [facility] Comment on above: Performed By: #### C BC #### [facility] [address] [place] [address] Dr. Radha Suarez Neutrophils/100 WBC (Bld) 91.2 % Critically high 43.0-75.0 [facility] Comment on above: Performed By: #### C BC #### [facility] [address] [place] [address] Dr. Radha Suarez Platelet mean volume (Bld) [Entitic vol] 9.1 fL Critically low 9.5-13.5 [facility] Comment on above: Performed By: #### C BC #### [facility] [address] [place] [address] Dr. Radha Suarez PLT 394 103/ul Normal 150-450 [facility] Comment on above: Performed By: #### C BC #### [facility] [address] [place] [address] Dr. Radha Suarez RBC 5.05 106/ul Normal 4.20-5.40 [facility] Comment on above: Performed By: #### C BC #### [facility] [address] [place] [address] Dr. Radha Suarez WBC 12.8 103/ul Critically high 4.0-11.0 [facility] Comment on above: Performed By: #### C BC #### [facility] [address] [place] [address] LSPINE WO CONon [...] NAOMIE THEODORE Date: 2022-02-03 09:33 Normal [facility] PROF 14(COMP METB)on 02-03- 022 Albumin [Mass/Vol] 3.9 g/dL Normal 3.4-5.0 [facility] Comment on above: Performed By: #### C VDTB #### [facility] [address] [place] [address] Dr. Radha Suarez Albumin/Globulin [Mass ratio] 1.0 {ratio} Normal [facility] Comment on above: Performed By: #### C VDTB #### [facility] [address] [place] [address] Dr. Radha Suarez ALP [Catalytic activity/Vol] 117 U/L Critically high 46-[address] [facility] Comment on above: Performed By: #### C VDTBH #### [facility] [address] [address] [address] Radha Suarez ALT [Catalytic activity/Vol] 42 U/L Normal 14-[address] [facility] Comment on above: Performed By: #### C VDTBH #### [facility] [address] [place] [address] Dr. Radha Suarez Anion gap [Moles/Vol] 16.0 mmol/L Normal [facility] Comment on above: Performed By: #### C VDTBH #### [facility] [address] [address] [address] Radha Suarez AST [Catalytic activity/Vol] 25 U/L Normal 15-[address] [facility] Comment on above: Performed By: #### C VDTBH #### [facility] [address] [address] [address] Radha Suarez Bilirubin [Mass/Vol] 0.2 mg/dL Normal 0.2-1.[address] [facility] Comment on above: Performed By: #### C VDTBH #### [facility] [address] [address] [address] Radha Suarez Calcium [Mass/Vol] 9.6 mg/dL Normal 8.5-10.1 [facility] Comment on above: Performed By: #### C VDTBH #### [facility] [address] [place] [address] Dr. Radha Suarez Chloride [Moles/Vol] 104 mmol/L Normal 98-[address] [facility] Comment on above: Performed By: #### C VDTBH #### [facility] [address] [address] [address] Radha Suarez CO2 [Moles/Vol] 26.0 mmol/L Normal 21.0-32.0 [facility] Comment on above: Performed By: #### C VDTBH #### [facility] [address] [address] [address] Radha Suarez Creatinine [Mass/Vol] 0.82 mg/dL Normal 0.55-1.[address] [facility] Comment on above: Performed By: #### C VDTBH #### [facility] [address] [address] [address] Radha Suarez EGFR-AF [place] >60 Normal >=60 [facility] Comment on above: Performed By: #### C VDTBH #### [facility] [address] [address] [address] Radha Suarez EGFR-NON AF [place] >60 Normal >=[address] [facility] Comment on above: Performed By: #### C VDTBH #### [facility] [address] [address] [address] Radha Suarez Globulin (S) [Mass/Vol] 3.8 g/dL Normal [facility] Comment on above: Performed By: #### C VDTBH #### [facility] [address] [address] [address] Radha Suarez Glucose [Mass/Vol] 153 mg/dL Critically high 74-106 [facility] Comment on above: Performed By: #### C VDTBH #### [facility] [address] [place] [address] Dr. Radha Suarez Potassium [Moles/Vol] 4.0 mmol/L Normal 3.5-5.[address] [facility] Comment on above: Performed By: #### C VDTBH #### [facility] [address] [place] [address] Dr. Radha Suarez Protein [Mass/Vol] 7.7 g/dL Normal 6.4-8.2 [facility] Comment on above: Performed By: #### C VDTBH #### [facility] [address] [place] [address] Dr. aRdha Suarez Sodium [Moles/Vol] 142 mmol/L Normal 136-145 [facility] Comment on above: Performed By: #### C VDTBH #### [facility] [address] [place] [address] Dr. Radha Suarez Urea nitrogen [Mass/Vol] 10.0 mg/dL Normal 7.0-18.[address] [facility] Comment on above: Performed By: #### C VDTBH #### [facility] [address] [place] [address] Dr. Radha Suarez Urea nitrogen/Creatinine [Mass ratio] 12.2 mg/mg Normal [facility] Comment on above: Performed By: #### C VDTBH #### [facility] [address] [place] [address] Dr. Radha Suarez PROF CHEM 8 (BAS METB)on Anion gap [Moles/Vol] 14.9 mmol/L Normal [facility] Comment on above: Performed By: #### C VDTBH #### [facility] [address] [address] [address] Radha Suarez Calcium [Mass/Vol] 9.3 mg/dL Normal 8.5-10.1 [facility] Comment on above: Result Comment: resu lt to follow Previously reported as: 9.1 On 02/03/2022 09:13 By [email or web address] Performed By: #### C VDTBH #### [facility] [address] [place] [address] Dr. Radha Suarez Chloride [Moles/Vol] 104 mmol/L Normal 98-[address] [facility] Comment on above: Performed By: #### C VDTBH #### [facility] [address] [place] [address] Dr. Radha Suarez CO2 [Moles/Vol] 25.7 mmol/L Normal 21.0-32.0 [facility] Comment on above: Performed By: #### C VDTBH #### [facility] [address] [place] [address] Dr. Radha Suarez Creatinine [Mass/Vol] 0.93 mg/dL Normal 0.55-1.[address] [facility] Comment on above: Performed By: #### C VDTBH #### [facility] [address] [place] [address] Dr. Radha Suarez EGFR-AF [place] >60 Normal >=60 [facility] Comment on above: Performed By: #### C VDTBH #### [facility] [address] [place] [address] Dr. Radha Suarez EGFR-NON AF [place] >60 Normal >=[address] [facility] Comment on above: Performed By: #### C VDTBH #### [facility] [address] [place] [address] Dr. Radha Suarez Glucose [Mass/Vol] 173 mg/dL Critically high 74-106 T [facility] Comment on above: Performed By: #### C VDTBH #### [facility] [address] [place] [address] Dr. Radha Suarez Potassium [Moles/Vol] 3.6 mmol/L Normal 3.5-5.[address] [facility] Comment on above: Performed By: #### C VDTBH #### [facility] [address] [address] [address] Radha Suarez Sodium [Moles/Vol] 141 mmol/L Normal 136-145 [facility] Comment on above: Performed By: #### C VDTBH #### [facility] [address] [address] [address] Radha Suarez Urea nitrogen [Mass/Vol] 12.0 mg/dL Normal 7.0-18.[address] [facility] Comment on above: Performed By: #### C VDTBH #### [facility] [address] [address] [address] Radha Suarez Urea nitrogen/Creatinine [Mass ratio] 12.9 mg/mg Normal [facility] Comment on above: Performed By: #### C VDTBH #### [facility] [address] [address] [address] Radha Suarez XR CHEST 1 Von [...] NAOMIE VELASQUEZ Date: 2022-02-02 22:36 Normal [facility]on SARS-CoV-2 (COVID-19) RNA RENÉ+probe Ql (Unsp spec) Not detected Normal NOT DETECTED [facility] Comment on above: Result Comment: When diagnostic [...] for this test is supported by the Cold Roll Inspector of Health and Human Service's declaration that [...] used). Performed By: #### C BC #### [facility] [address] [place] [address] Dr. Radha Suarez BNPon 01-14-2022 Natriuretic peptide B (Bld) [Mass/Vol] 86.0 pg/mL Normal <=900.[address] [facility] Comment on above: Performed By: #### B ARTIST MANNEQUIN COLORING, CMP #### [facility] [address] [place] [address] Dr. Radha Suarez CBC AUTO DIFFon 01-14-2022 BASO # 0.1 103/ul Normal 0.0-0.[address] [facility] Comment on above: Performed By: #### C VDTBH #### [facility] [address] [place] [address] Dr. Radha Suarez Basophils/100 WBC (Bld) 0.6 % Normal 0.2-2.0 [facility] Comment on above: Performed By: #### C VDTBH #### [facility] [address] [place] [address] Dr. Radha Suarez EO # 0.1 103/ul Normal 0.0-0.7 [facility] Comment on above: Performed By: #### C VDTBH #### [facility] [address] [place] [address] Dr. Radha Suarez Eosinophils/100 WBC (Bld) 1.1 % Normal 0.9-7.0 [facility] Comment on above: Performed By: #### C VDTBH #### [facility] [address] [place] [address] Dr. Radha Suarez Erythrocyte distribution width (RBC) [Ratio] 14.6 % Normal 11.0-15.0 [facility] Comment on above: Performed By: #### C VDTBH #### [facility] [address] [place] [address] Dr. Radha Suarez Hematocrit (Bld) [Volume fraction] 43.8 % Normal 36.0-48.[address] [facility] Comment on above: Performed By: #### C VDTBH #### [facility] [address] [place] [address] Dr. Radha Suarez Hemoglobin (Bld) [Mass/Vol] 14.7 g/dL Normal 12.0-16.[address] [facility] Comment on above: Performed By: #### C VDTBH #### [facility] [address] [place] [address] Dr. Radha Suarez IG # 0.04 10e3/ul Critically high 0.00-0.03 [facility] Comment on above: Performed By: #### C VDTBH #### [facility] [address] [place] [address] Dr. Radha Suarez IG % 0.4 % Normal 0.0-0.[address] [facility] Comment on above: Performed By: #### C VDTBH #### [facility] [address] [place] [address] Dr. Radha Suarez LYMPH # 1.7 103/ul Normal 1.2-3.[address] [facility] Comment on above: Performed By: #### C VDTBH #### [facility] [address] [place] [address] Dr. Radha Suarez Lymphocytes/100 WBC (Bld) 19.0 % Critically low 20.5-60.[address] [facility] Comment on above: Performed By: #### C VDTBH #### [facility] [address] [place] [address] Dr. Radha Suarez MANUAL DIFF REQ NO Normal [facility] Comment on above: Performed By: #### C VDTBH #### [facility] [address] [place] [address] Dr. Radha Suarez MCH (RBC) [Entitic mass] 30.5 pg Normal 26.7-34.[address] [facility] Comment on above: Performed By: #### C VDTBH #### [facility] [address] [place] [address] Dr. Radha Suarez MCHC (RBC) [Mass/Vol] 33.6 g/dL Normal 29.9-35.2 [facility] Comment on above: Performed By: #### C VDTBH #### [facility] [address] [place] [address] Dr. Radha Suarez MCV (RBC) [Entitic vol] 90.9 fL Normal 81.0-99.0 [facility] Comment on above: Performed By: #### C VDTBH #### [facility] [address] [place] [address] Dr. Radha Suarez MONO # 0.6 103/ul Normal 0.3-0.[address] [facility] Comment on above: Performed By: #### C VDTBH #### [facility] [address] [place] [address] Dr. Radha Suarez Monocytes/100 WBC (Bld) 6.9 % Normal 1.7-12.0 [facility] Comment on above: Performed By: #### C VDTBH #### [facility] [address] [place] [address] Dr. Radha Suarez NEUT # 6.5 103/ul Normal 1.4-6.5 [facility] Comment on above: Performed By: #### C VDTBH #### [facility] [address] [place] [address] Dr. Radha Suarez Neutrophils/100 WBC (Bld) 72.0 % Normal 43.0-75.0 [facility] Comment on above: Performed By: #### C VDTBH #### [facility] [address] [place] [address] Dr. Radha Suarez Platelet mean volume (Bld) [Entitic vol] 8.9 fL Critically low 9.5-13.[address] [facility] Comment on above: Performed By: #### C VDTBH #### [facility] [address] [place] [address] Dr. Radha Suarez PLT 324 103/ul Normal 150-450 [facility] Comment on above: Performed By: #### C VDTBH #### [facility] [address] [place] [address] Dr. Radha Suarez RBC 4.82 106/ul Normal 4.20-5.[address] [facility] Comment on above: Performed By: #### C VDTBH #### [facility] [address] [place] [address] Dr. Radha Suarez WBC 9.0 103/ul Normal 4.0-11.[address] [facility] Comment on above: Performed By: #### C VDTBH #### [facility] [address] [place] [address] Dr. Radha Suarez Covid-19 PCR ([facility])on 12-26 SARS-CoV-2 (COVID-19) RNA RENÉ+probe Ql (Unsp spec) Not detected Normal NOT DETECTED [facility] Comment on above: Result Comment: When diagnostic [...] for this test is supported by the Cold Roll Inspector of Health and Human Service's declaration that [...] used). Performed By: #### C VDTBH #### [facility] [address] [place] [address] Dr. Radha Suarez PROF 14(COMP METB)on 022 Albumin [Mass/Vol] 3.9 g/dL Normal 3.4-5.0 [facility] Comment on above: Performed By: #### B ARTIST MANNEQUIN COLORING, CMP #### [facility] [address] [address] [address] Radha Suarez Albumin/Globulin [Mass ratio] 1.0 {ratio} Normal [facility] Comment on above: Performed By: #### B ARTIST MANNEQUIN COLORING, CMP #### [facility] [address] [address] [address] Radha Suarez ALP [Catalytic activity/Vol] 96 U/L Normal 46-[address] [facility] Comment on above: Performed By: #### B ARTIST MANNEQUIN COLORING, CMP #### [facility] [address] [address] [address] Radha Suarez ALT [Catalytic activity/Vol] 26 U/L Normal 14-[address] [facility] Comment on above: Performed By: #### B ARTIST MANNEQUIN COLORING, CMP #### [facility] [address] [place] [address] Dr. Radha Suarez Anion gap [Moles/Vol] 13.6 mmol/L Normal [facility] Comment on above: Performed By: #### B ARTIST MANNEQUIN COLORING, CMP #### [facility] [address] [place] [address] Dr. Radha Suarez AST [Catalytic activity/Vol] 17 U/L Normal 15-[address] [facility] Comment on above: Performed By: #### B ARTIST MANNEQUIN COLORING, CMP #### [facility] [address] [place] [address] Dr. Radha Suarez Bilirubin [Mass/Vol] 0.3 mg/dL Normal 0.2-1.[address] [facility] Comment on above: Performed By: #### B ARTIST MANNEQUIN COLORING, CMP #### [facility] [address] [address] [address] Radha Suarez Calcium [Mass/Vol] 9.1 mg/dL Normal 8.5-10.1 [facility] Comment on above: Performed By: #### B ARTIST MANNEQUIN COLORING, CMP #### [facility] [address] [address] [address] Radha Suarez Chloride [Moles/Vol] 106 mmol/L Normal 98-107 [facility] Comment on above: Performed By: #### B ARTIST MANNEQUIN COLORING, CMP #### [facility] [address] [address] [address] Radha Suarez CO2 [Moles/Vol] 26.8 mmol/L Normal 21.0-32.0 [facility] Comment on above: Performed By: #### B ARTIST MANNEQUIN COLORING, CMP #### [facility] [address] [place] [address] Dr. Radha Suarez Creatinine [Mass/Vol] 0.94 mg/dL Normal 0.55-1.[address] [facility] Comment on above: Performed By: #### B ARTIST MANNEQUIN COLORING, CMP #### [facility] [address] [place] [address] Dr. Radha Suarez EGFR-AF [place] >60 Normal >=60 [facility] Comment on above: Performed By: #### B ARTIST MANNEQUIN COLORING, CMP #### [facility] [address] [place] [address] Dr. Radha Suarez EGFR-NON AF [place] >60 Normal >=[address] [facility] Comment on above: Performed By: #### B ARTIST MANNEQUIN COLORING, CMP #### [facility] [address] [place] [address] Dr. Radha Suarez Globulin (S) [Mass/Vol] 4.1 g/dL Normal [facility] Comment on above: Performed By: #### B ARTIST MANNEQUIN COLORING, CMP #### [facility] [address] [place] [address] Dr. Radha Suarez Glucose [Mass/Vol] 115 mg/dL Critically high 74-106 T [facility] Comment on above: Performed By: #### B ARTIST MANNEQUIN COLORING, CMP #### [facility] [address] [place] [address] Dr. Radha Suarez Potassium [Moles/Vol] 3.4 mmol/L Critically low 3.5-5.[address] [facility] Comment on above: Performed By: #### B ARTIST MANNEQUIN COLORING, CMP #### [facility] [address] [place] [address] Dr. Radha Suarez Protein [Mass/Vol] 8.0 g/dL Normal 6.4-8.2 [facility] Comment on above: Performed By: #### B ARTIST MANNEQUIN COLORING, CMP #### [facility] [address] [address] [address] Radha Suarez Sodium [Moles/Vol] 143 mmol/L Normal 136-145 [facility] Comment on above: Performed By: #### B ARTIST MANNEQUIN COLORING, CMP #### [facility] [address] [address] [address] Radha Suarez Urea nitrogen [Mass/Vol] 13.0 mg/dL Normal 7.0-18.[address] [facility] Comment on above: Performed By: #### B ARTIST MANNEQUIN COLORING, CMP #### [facility] [address] [address] [address] Radha Suarez Urea nitrogen/Creatinine [Mass ratio] 13.8 mg/mg Normal [facility] Comment on above: Performed By: #### B ARTIST MANNEQUIN COLORING, CMP #### [facility] [address] [place] [address] Dr. Radha Suarez XR CHEST 1 Von [...] ZIA DESAI Date: 2022-01-14 20:21 Normal [facility] CBC AUTO DIFFon 01-13-2022 BASO # 0.0 103/ul Normal 0.0-0.[address] [facility] Comment on above: Performed By: #### C VDTBH #### [facility] [address] [place] [address] Dr. Radha Suarez Basophils/100 WBC (Bld) 0.5 % Normal 0.2-2.[address] [facility] Comment on above: Performed By: #### C VDTBH #### [facility] [address] [place] [address] Dr. Radha Suarez EO # 0.1 103/ul Normal 0.0-0.[address] [facility] Comment on above: Performed By: #### C VDTBH #### [facility] [address] [place] [address] Dr. Radha Suarez Eosinophils/100 WBC (Bld) 1.0 % Normal 0.9-7.[address] [facility] Comment on above: Performed By: #### C VDTBH #### [facility] [address] [place] [address] Dr. Radha Suarez Erythrocyte distribution width (RBC) [Ratio] 14.6 % Normal 11.0-15.[address] [facility] Comment on above: Performed By: #### C VDTBH #### [facility] [address] [place] [address] Dr. Radha Suarez Hematocrit (Bld) [Volume fraction] 42.3 % Normal 36.0-48.[address] [facility] Comment on above: Performed By: #### C VDTBH #### [facility] [address] [place] [address] Dr. Radha Suarez Hemoglobin (Bld) [Mass/Vol] 13.7 g/dL Normal 12.0-16.[address] [facility] Comment on above: Performed By: #### C VDTBH #### [facility] [address] [place] [address] Dr. Radha Suarez IG # 0.04 10e3/ul Critically high 0.00-0.03 [facility] Comment on above: Performed By: #### C VDTBH #### [facility] [address] [place] [address] Dr. Radha Suarez IG % 0.5 % Normal 0.0-0.[address] [facility] Comment on above: Performed By: #### C VDTBH #### [facility] [address] [place] [address] Dr. Radha Suarez LYMPH # 1.8 103/ul Normal 1.2-3.[address] [facility] Comment on above: Performed By: #### C VDTBH #### [facility] [address] [place] [address] Dr. Radha Suarez Lymphocytes/100 WBC (Bld) 21.4 % Normal 20.5-60.[address] [facility] Comment on above: Performed By: #### C VDTBH #### [facility] [address] [place] [address] Dr. Radha Suarez MANUAL DIFF REQ NO Normal [facility] Comment on above: Performed By: #### C VDTBH #### [facility] [address] [place] [address] Dr. Radha Suarez MCH (RBC) [Entitic mass] 30.0 pg Normal 26.7-34.[address] [facility] Comment on above: Performed By: #### C VDTBH #### [facility] [address] [place] [address] Dr. Radha Suarez MCHC (RBC) [Mass/Vol] 32.4 g/dL Normal 29.9-35.[address] [facility] Comment on above: Performed By: #### C VDTBH #### [facility] [address] [place] [address] Dr. Radha Suarez MCV (RBC) [Entitic vol] 92.8 fL Normal 81.0-99.[address] [facility] Comment on above: Performed By: #### C VDTBH #### [facility] [address] [place] [address] Dr. Radha Suarez MONO # 0.7 103/ul Normal 0.3-0.[address] [facility] Comment on above: Performed By: #### C VDTBH #### [facility] [address] [place] [address] Dr. Radha Suarez Monocytes/100 WBC (Bld) 7.9 % Normal 1.7-12.[address] [facility] Comment on above: Performed By: #### C VDTBH #### [facility] [address] [place] [address] Dr. Radha Suarez NEUT # 5.6 103/ul Normal 1.4-6.[address] [facility] Comment on above: Performed By: #### C VDTBH #### [facility] [address] [place] [address] Dr. Radha Suarez Neutrophils/100 WBC (Bld) 68.7 % Normal 43.0-75.[address] [facility] Comment on above: Performed By: #### C VDTBH #### [facility] [address] [place] [address] Dr. Radha Suarez Platelet mean volume (Bld) [Entitic vol] 9.5 fL Normal 9.5-13.[address] [facility] Comment on above: Performed By: #### C VDTBH #### [facility] [address] [place] [address] Dr. Radha Suarez PLT 321 103/ul Normal 150-450 [facility] Comment on above: Performed By: #### C VDTBH #### [facility] [address] [place] [address] Dr. Radha Suarez RBC 4.56 106/ul Normal 4.20-5.[address] [facility] Comment on above: Performed By: #### C VDTBH #### [facility] [address] [place] [address] Dr. Radha Suarez WBC 8.2 103/ul Normal 4.0-11.[address] [facility] Comment on above: Performed By: #### C VDTBH #### [facility] [address] [place] [address] Dr. Radha Suarez FREE T3on 01-13-2022 FREE T3 1.99 pg/mlL Critically low 2.18-3.98 [facility] Comment on above: Performed By: #### C BC #### [facility] [address] [place] [address] Dr. Radha Suarez FREE T4on 01-13-2022 Free T4 [Mass/Vol] 1.02 ng/dL Normal 0.76-1.46 [facility] Comment on above: Performed By: #### C VDTBH #### [facility] [address] [place] [address] Dr. Radha Suarez MRI LUMBAR SPINE WO IVCONon 01-13-2022 MRI LUMBAR SPINE WO IVCON * * *Final Report* * * DATE OF EXAM: Jan 13 2022 2:53PM [facility] [id number] - MRI LUMBAR SPINE WO IVCON [...] crest and there are 5 lumbar-type vertebrae. Shagger: PSCB Transcribe Date/Time: Jan 13 2022 3:43P Dictated by : KIERAN MONTOYA MD This examination was interpreted and the report reviewed and electronically signed by: KIERAN MONTOYA MD on Jan 13 2022 3:50PM EST [id number] CN Normal [facility] THORACIC SPINE WO IVCONo n 01-13-2022 MRI THORACIC SPINE WO IVCON * * *Final Report* * * DATE OF EXAM: Jan 13 2022 2:53PM [facility] 0325 - MRI THORACIC SPINE WO IVCON [...] crest and there are 5 lumbar-type vertebrae. Shagger: SAVAGE Transcribe Date/Time: Jan 13 2022 3:43P Dictated by : KIERAN MONTOYA MD This examination was interpreted and the report reviewed and electronically signed by: KIERAN MONTOYA MD on Jan 13 2022 3:50PM EST [id number] CN Normal [facility] No Panel Informationon 01-13 [facility] PROF CHEM 8 (BAS METB)on Anion gap [Moles/Vol] 11.3 mmol/L Normal [facility] Comment on above: Performed By: #### C BC #### [facility] [address] [place] [address] Dr. Radha Suarez Calcium [Mass/Vol] 9.5 mg/dL Normal 8.5-10.1 [facility] Comment on above: Performed By: #### C BC #### [facility] [address] [address] [address] Radha Suarez Chloride [Moles/Vol] 105 mmol/L Normal 98-107 [facility] Comment on above: Performed By: #### C BC #### [facility] [address] [address] [address] Radha Suarez CO2 [Moles/Vol] 28.2 mmol/L Normal 21.0-32.0 [facility] Comment on above: Performed By: #### C BC #### [facility] [address] [address] [address] Radha Suarez Creatinine [Mass/Vol] 0.86 mg/dL Normal 0.55-1.[address] [facility] Comment on above: Performed By: #### C BC #### [facility] [address] [address] [address] Radha Suarez EGFR-AF [place] >60 Normal >=60 [facility] Comment on above: Performed By: #### C BC #### [facility] [address] [address] [address] Radha Suarez EGFR-NON AF [place] >60 Normal >=[address] [facility] Comment on above: Performed By: #### C BC #### [facility] [address] [address] [address] Radha Suarez Glucose [Mass/Vol] 99 mg/dL Normal 74-106 [facility] Comment on above: Performed By: #### C BC #### [facility] [address] [address] [address] Radha Suarez Potassium [Moles/Vol] 3.5 mmol/L Normal 3.5-5.1 [facility] Comment on above: Performed By: #### C BC #### [facility] [address] [address] [address] Radha Suarez Sodium [Moles/Vol] 141 mmol/L Normal 136-145 [facility] Comment on above: Performed By: #### C BC #### [facility] [address] [address] [address] Radha Suarez Urea nitrogen [Mass/Vol] 15.0 mg/dL Normal 7.0-18.[address] [facility] Comment on above: Performed By: #### C BC #### [facility] [address] [address] [address] Radha Suarez Urea nitrogen/Creatinine [Mass ratio] 17.4 mg/mg Normal [facility] Comment on above: Performed By: #### C BC #### [facility] [address] [address] [address] Radha Suarez TSHon 01-13-2022 TSH 5.692 uIU/mL Critically high 0.358-3.740 [facility] Comment on above: Performed By: #### C BC #### [facility] [address] [place] [address] Dr. Radha Suarez C-REACTIVE PROTEIN (CRP)on 0 12-04-2021 CRP [Mass/Vol] 0.9 mg/dL High <0.9 mg/dL [facility] ESR Westergren method (Bld) [Velocity]on 12-04-2021 ESR (Bld) [Velocity] 17 mm/h 0 - 20 mm/hr [facility] HbA1c (Bld)on 12-04-2021 Average glucose Estimated from glycated hemoglobin (Bld) [Mass/Vol] 111 mg/dL [facility] HbA1c (Bld) [Mass fraction] 5.5 % 4.3 - 5.6 % [facility] CNOVon 12-03-2021 CNOV Office Visit (PAINLN) NATO SHORT ([id number]) 1970 F Date Time Provider Department 12/03/21 [...] supervised home exercise program (HEP): No 5. Post Secondary Professional: No Passive conservative therapy lasting 6 weeks in the last six months (see below) 1. Medical devises: No 2. Acupuncture: No 3. Tens unit: No 4. Prescription pain medication: No 5. 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 EXAMINATION: [id number] TERIOR: Scoliosis: No Pelvic Tilt: No Leg [...] (more content not included)... Normal [facility] CRP SerPl-mCncon 12-03-2021 CRP [Mass/Vol] 0.9 mg/dL High <0.9 [facility] Comment on above: Order Comment: Speci men Type: BLOOD SPECIMEN Ordering Facility: [facility] Address: [address] [place] [address] Performed By: #### 1 [id number] #### [facility] CLIA [id number] [address] [place] [address] [place] ESR Westergren method (Bld) [Velocity]on 12-03-2021 ESR (Bld) [Velocity] 17 mm/h Normal 0-20 [facility] Comment on above: Order Comment: Speci men Type: BLOOD SPECIMEN Ordering Facility: [facility] Address: [address] [place] [address] Performed By: #### 4 [id number] #### [facility] CLIA [id number] [address] [place] [address] [place] HGB A1Con 12-03-2021 Average glucose Estimated from glycated hemoglobin (Bld) [Mass/Vol] 111 mg/dL Normal [facility] Comment on above: Order Comment: Speci men Type: BLOOD SPECIMEN Ordering Facility: [facility] Address: [address] [place] [address] Result Comment: eAG: (Estimated average glucose) is a calculated value from HgbA1c and is accounts receivable representative of the average blood glucose level in the last 2-3 month period. Performed By: #### H BA1C #### [facility] CLIA [id number] [address] [place] [address] [place] HbA1c (Bld) [Mass fraction] 5.5 % Normal 4.3-5.6 [facility] Comment on above: Order Comment: Speci men Type: BLOOD SPECIMEN Ordering Facility: [facility] Address: [address] [place] [phone] Result Comment: Raymundo ican Diabetes Association guidelines indicate that patients with HgbA1c in the range 5.7-6.4% are at increased risk for development of diabetes, and intervention by lifestyle modification may be beneficial. HgbA1c greater or equal to 6.5% is considered diagnostic of diabetes. Performed By: #### H BA1C #### [facility] CLIA [id number] [address] [place] [address] [place] No Panel Informationon 12-03 [facility] XR LUMBAR 3V AP/LAT/L5-S1on 12-03-2021 XR [...] subluxation at L4-5 with facet degenerative changes Shagger: SAVAGE Transcribe Date/Time: Dec 04 2021 8:19P Dictated by : PARMJIT PIMENTEL MD This examination was interpreted and the report reviewed and electronically signed by: PARMJIT PIMENTEL MD on Dec 04 2021 8:20PM EST [id number] CN Normal [facility] 12-02-2021 CNPN Telephone (PAINLN) NATO SHORT ([id number]) 1970 F Date Time Provider Department 12/02/21 LAZARUS JOHNSON During your visit today, we recorded the following information about you: Keren Rosales MA 12/02/2021 1:49 PM Signed Patient was advised of the following: This is a follow up phone call regarding your appointment with Dr Johnson, which you are scheduled to see at [facility] on 12/03/2021 1) Have you been [...] need to reschedule please call us at [phone]. Left VM with new patient policy advised [...] KEREN ROSALES on 12/02/21 Normal [facility] XR FOOT LT MIN 3 VIEWSon XR [...] by: NAOMIE VELASQUEZ Date: 2021-11-12 21:[address] [facility] XR CHEST 2 Von 07-24-2021 SARS-CoV-2 [...] by: NAOMIE VELASQUEZ Date: 2021-07-23 22:[address] [facility] Consent for Treatmenton Consent for Treatment [id number] #[id number]:127 Normal [facility] Registrationon 03-05-2020 Registration [id number] #[id number]:127 Normal [facility] Consenton 02-29-2020 Consent [id number] 19#1.00CD:127 Normal [facility] Vital Signs Date Time Vital Sign Value Performing Clinician Viola faith 03-28-2024 17:03-0400 Body height 151.8 cm Whit Sorensen [employer] Work Phone: [facility] 03-28-2024 17:03-0400 Body mass index (BMI) [Ratio] 43.09 kg/m2 Whit Sorensen [employer] Work Phone: [facility] 03-28-2024 17:03-0400 Body temperature 98.49 [degF] Whit Sorensen [employer] Work Phone: [facility] 03-28-2024 17:03-0400 Body weight 99.25 kg Whit Sorensen [employer] Work Phone: [facility] 03-28-2024 17:03-0400 Diastolic blood pressure 94 mm[Hg] Whit Sorensen [employer] Work Phone: [facility] 03-28-2024 17:03-0400 Heart rate 89 /min Whit Sorensen [employer] Work Phone: [facility] 03-28-2024 17:03-0400 Respiratory rate 19 /min Whit Sorensen [employer] Work Phone: [facility] 03-28-2024 17:03-0400 SaO2% (BldA) [Mass fraction] 96 % Whit Sorensen [employer] Work Phone: [facility] 03-28-2024 17:03-0400 Systolic blood pressure 140 mm[Hg] Whit Sorensen [employer] Work Phone: [facility] 03-26-2024 18:01-0400 Body height 151.8 cm Whit Sorensen [employer] Work Phone: [facility] 03-26-2024 18:01-0400 Body mass index (BMI) [Ratio] 42.85 kg/m2 Whit Sorensen [employer] Work Phone: [facility] 03-26-2024 18:01-0400 Body temperature 98.49 [degF] Whit Sorensen [employer] Work Phone: [facility] 03-26-2024 18:01-0400 Body weight 98.7 kg Whit Aichholz [employer] Work Phone: [facility] 03-26-2024 18:01-0400 Diastolic blood pressure 98 mm[Hg] Whit Aichholz [employer] Work Phone: [facility] 03-26-2024 18:01-0400 Heart rate 89 /min Whit Aichholz [employer] Work Phone: [facility] 03-26-2024 18:01-0400 Respiratory rate 18 /min Whit Aichholz [employer] Work Phone: [facility] 03-26-2024 18:01-0400 SaO2% (BldA) [Mass fraction] 94 % Whit Aichholz [employer] Work Phone: [facility] 03-26-2024 18:01-0400 Systolic blood pressure 140 mm[Hg] Whit Aichholz [employer] Work Phone: [facility] 03-08-2024 15:07-0400 Body height 151.8 cm Whit Aichholz [employer] Work Phone: [facility] 03-08-2024 15:07-0400 Body mass index (BMI) [Ratio] 42.77 kg/m2 Whit Aichholz [employer] Work Phone: [facility] 03-08-2024 15:07-0400 Body temperature 97.81 [degF] Whit Aichholz [employer] Work Phone: [facility] 03-08-2024 15:07-0400 Body weight 98.52 kg Whit Aichholz [employer] Work Phone: [facility] 03-08-2024 15:07-0400 Diastolic blood pressure 80 mm[Hg] Whit Aichholz [employer] Work Phone: [facility] 03-08-2024 15:07-0400 Heart rate 92 /min Whit Aichholz [employer] Work Phone: [facility] 03-08-2024 15:07-0400 Respiratory rate 19 /min Whit Aichholz [employer] Work Phone: [facility] 03-08-2024 15:07-0400 SaO2% (BldA) [Mass fraction] 96 % Whit Aichholz [employer] Work Phone: [facility] 03-08-2024 15:07-0400 Systolic blood pressure 128 mm[Hg] Whit Aichholz [employer] Work Phone: [facility] 12-03-2021 15:14-0400 Body height 152.4 cm Lazarus Johnson MD Work Phone: [facility] 12-03-2021 15:14-0400 Heart rate 85 /min Lazarus Johnson MD Work Phone: [facility] 12-03-2021 15:14-0400 SaO2% (BldA) [Mass fraction] 96 % Lazarus Johnson MD Work Phone: [facility] Encounters Encounter Date Encounter Type Care Provider Facility Start: 06-25-2024 End: 06-25-2024 Refill Whit Aichholz [employer] Work Phone: [facility] Start: 06-22-2024 End: 06-25-2024 Refill Whit Aichholz [employer] Work Phone: [facility] Comment on above: Hypothyroidism (acqu ired) ([facility]) Start: 06-04-2024 End: 06-04-2024 Refill Whit Aichholz [employer] Work Phone: [facility] Comment on above: Spinal stenosis of l umbar region, unspecified whether neurogenic claudication present (Primary Dx); Migraine with aura and without status migrainosus, not intractable (CMS/HCC); Primary insomnia; Mixed hyperlipidemia (CMS/HCC); Anxiety and depression (CMS/HCC); Hypothyroidism (acquired) ([facility]); Gastroesophageal reflux disease, unspecified whether esophagitis present Start: 05-28-2024 End: 05-28-2024 Refill Whit Aichholz [employer] Work Phone: [facility] Comment on above: Muscle spasm (Primar y Dx) Start: 05-11-2024 End: 05-11-2024 Refill Whit Demarz [employer] Work Phone: [facility] Comment on above: Hypothyroidism (acqu ired) ([facility]) Start: 05-10-2024 End: 05-10-2024 Clinisync Result Encounter Whit Franchesca [employer] Work Phone: [facility] External Department Unsolicited Start: 05-10-2024 End: 05-10-2024 Clinisync Result Encounter Whit Franchesca [employer] Work Phone: [facility] External Department Unsolicited Start: 05-09-2024 End: 05-09-2024 Orders Only Whit Franchesca [employer] Work Phone: [facility] Comment on above: Cervical radiculopat hy (Primary Dx); Cervical myelopathy ([facility]) Start: 05-04-2024 End: 05-04-2024 Refill Whit Brennenhholz [employer] Work Phone: [facility] Comment on above: Gastroesophageal ref lux disease, unspecified whether esophagitis present Start: 04-12-2024 End: 04-12-2024 Refill Whit Brennenhholz [employer] Work Phone: [facility] Comment on above: Oral thrush (Primary Dx) Start: 03-28-2024 End: 03-28-2024 Periodic preventive med est patient 40-64yrs Whit Franchesca [employer] Work Phone: [facility] Comment on above: Encounter for annual wellness visit (Primary Dx); Migraine with aura and without status migrainosus, not intractable ([facility]); Primary insomnia; Pre-operative clearance; Elevated blood pressure, situational; Morbid obesity due to excess calories ([facility]); Current smoker Start: 03-28-2024 End: 03-28-2024 ambulatory WHIT AICHHOLZ Not Available Start: 03-28-2024 End: 03-28-2024 Bamboo flowsheet Whit Demarz [employer] Work Phone: [facility] Start: 03-28-2024 End: 03-28-2024 Bamboo flowsheet Whit Brennengeoholz [employer]IST [employer] Work Phone: [facility] Start: 03-28-2024 End: 03-28-2024 Patient encounter procedure Whit Franchesca [employer] Work Phone: [facility] Start: 03-28-2024 End: 03-28-2024 Preoperative state Whit Franchesca [employer] Work Phone: [facility] Start: 03-26-2024 End: 03-26-2024 Office outpatient visit 25 minutes Whit Demarz [employer] Work Phone: [facility] Comment on above: Cervical radiculopat hy (Primary Dx); Elevated blood pressure, situational; Morbid obesity due to excess calories (CMS/HCC); Multiple thyroid nodules (CMS/HCC) Start: 03-26-2024 End: 03-26-2024 ambulatory WHIT AICHHOLZ Not Available Start: 03-20-2024 End: 03-21-2024 Refill Whit Aichholz [employer] Work Phone: [facility] Comment on above: Mixed hyperlipidemia (CMS/HCC) Start: 03-14-2024 End: 03-15-2024 Refill Whit Aichholz [employer] Work Phone: [facility] Comment on above: Primary insomnia Start: 03-09-2024 End: 03-09-2024 ambulatory [facility] Start: 03-08-2024 End: 03-08-2024 ambulatory WHIT AICHHOLZ Not Available Start: 03-08-2024 End: 03-08-2024 Office outpatient visit 15 minutes Whit Aichholz [employer] Work Phone: [facility] Comment on above: Hypothyroidism (acqu ired) (CMS/HCC) (Primary Dx); Major depressive disorder, recurrent, moderate (HCC) (CMS/HCC); Supraventricular tachycardia, unspecified (CMS/HCC); Morbid obesity due to excess calories (CMS/HCC) Start: 03-08-2024 End: 03-08-2024 Bamboo flowsheet Whit Sorensen [employer] Work Phone: [facility] Start: 03-08-2024 End: 03-08-2024 Bamboo flowsheet Whit Franchesca [employer]IST [employer] Work Phone: [facility] Start: 03-07-2024 End: 03-07-2024 Clinisync Result Encounter Whit Franchesca [employer] Work Phone: [facility] External Department Unsolicited Start: 03-07-2024 End: 03-07-2024 Clinisync Result Encounter Whit Franchesca [employer] Work Phone: [facility] External Department Unsolicited Start: 03-07-2024 End: 03-07-2024 Refill Whit Demarz [employer] Work Phone: [facility] Comment on above: Hypothyroidism (acqu ired) (CMS/HCC) (Primary Dx) Start: 03-03-2024 End: 03-05-2024 Refill Whit Aicgeoholz [employer]IST [employer] Work Phone: [facility] Comment on above: Mixed hyperlipidemia (CMS/HCC); Hypothyroidism (acquired) (CMS/HCC) Start: 02-29-2024 End: 02-29-2024 Refill Whit Aicgeoholz [employer]IST [employer] Work Phone: [facility] Comment on above: Morbid obesity due t o excess calories (CMS/HCC) Start: 02-22-2024 End: 02-22-2024 Office outpatient new 45 minutes Campbell PAEZ Work Phone: [facility] Comment on above: Onychomycosis (Prima ry Dx); Tinea pedis, recurrent; Seborrheic keratosis; Tinea pedis of left foot; Allergic contact dermatitis due to cosmetics Start: 02-22-2024 End: 02-22-2024 ambulatory CAMPBELL BACH Not Available Start: 02-22-2024 End: 02-22-2024 Bamboo flowsheet Campbell Bach PA Work Phone: [facility] Start: 02-22-2024 End: 02-22-2024 Bamboo flowsheet Campbell Bach PA Work Phone: [facility] Start: 02-13-2024 End: 02-14-2024 Refill Whit Aichholz [employer] Work Phone: [facility] Comment on above: Lumbar radiculopathy Start: 01-16-2024 End: 01-16-2024 ambulatory WHIT AICHHOLZ Not Available Start: 01-05-2024 End: 01-05-2024 ambulatory WHIT AICHHOLZ Not Available Start: 12-12-2023 End: 12-12-2023 ambulatory WHIT AICHHOLZ Not Available Start: 09-05-2023 End: 09-05-2023 ambulatory WHIT AICHHOLZ Not Available Start: 05-24-2023 End: 05-24-2023 ambulatory WHIT AICHHOLZ Not Available Start: 02-10-2023 End: 02-13-2023 ambulatory WHIT Charline SORENSEN [facility] Start: 07-15-2022 End: 07-15-2022 ambulatory INTERNET RESEARCHER WHIT FRANCHESCA Facility:[facility] Start: 05-30-2022 End: 05-30-[address] MEY FARNSWORTH Facility:[facility] Start: 04-21-2022 Encounter for other preprocedural examination INTERNET RESEARCHER WHIT FRANCHESCA [facility] Start: 04-20-2022 ambulatory INTERNET RESEARCHER WHIT FRANCHESCA Facil ity:[facility]1 Start: 04-16-2022 End: 04-17-2022 ambulatory INTERNET RESEARCHER WHIT FRANCHESCA Facility:[facility] Start: 04-16-2022 End: 04-17-2022 Encounter for other preprocedural examination INTERNET RESEARCHER WHIT FRANCHESCA Facility:[facility] Start: 03-08-2022 End: 03-09-2022 ambulatory INTERNET RESEARCHER WHIT FRANCHESCA Facility:[facility] Start: 02-22-2022 Get Medical Advice Lazarus [...] 01-13-2022 Subsequent hospital visit by physician Mri [facility] (Lg Bore/1.5t) Radiology MRI Comment on [...] encounter procedure Wi juaquin Kang RT(R) [place]TH [place] Start: 12-11-2021 ambulatory NATACHA SORENSEN Facil ity:[facility]1 Start: 12-03-2021 End: 12-03-2021 Subsequent hospital visit by physician Xr [facility] Comment on above: Radiculopathy of lum [...] ma nagement) Start: 11-19-2021 End: 11-20-2021 ambulatory INTERNET RESEARCHER WHIT AICHHOLZ Facility:[facility] Start: 11-12-2021 End: 11-13-2021 ambulatory INTERNET RESEARCHER WHIT AICHHOLZ Facility:[facility] Start: 07-23-2021 End: 07-24-2021 ambulatory INTERNET RESEARCHER WHIT AICHHOLZ Facility:[facility] Procedures Date Procedure Procedure Detail Performing Clinician Start: 05-10-2024 ALL THYROID STIM HORMONE Whit Aichholz [employer] Work Phone: Start: 05-10-2024 ALL THYROXINE (T4) FREE Whit Aichholz [employer] Work Phone: Start: 03-07-2024 ALL T3 FREE Whit Aichh olz [employer] Work Phone: Start: 03-07-2024 ALL THYROID STIM HORMONE Whit Aichholz [employer] Work Phone: Start: 01-13-2022 Mri spinal canal tho racic w/o contrast matrl Lazarus Johnson MD Work Phone: Start: 12-03-2021 Radex spine lumbosac ral 2/3 views Lazarus Johnson MD Work Phone: Start: 08-09-2018 Colonoscopy Whit Aichh olpratibha [employer] Work Phone: Plan of Treatment Date Care Activity Detail Author Start: 08-09-2028 Screening for malign ant neoplasm of colon [facility] Start: 12-03-2024 DIABETES SCREEN DIABETES SCREEN [facility] Start: 12-03-2024 Diabetes Screening Diabetes Screenin g [facility] Start: 07-21-2024 End: 05-11-2025 Thyroxine (T4) free [Mass/volume] in Serum or Plasma T4, free Lab Routine Hypothyroidism (acquired) ([facility]) Expected: 07/21/2024 (Approximate), Expires: 05/11/2025 [facility] Comment on above: Expected: 07/21/2024 (Approximate), Expires: 05/11/2025 Start: 07-11-2024 End: 05-11-2025 Thyrotropin [Units/volume] in Serum or Plasma TSH Lab Routine Hypothyroidism (acquired) ([facility]) Expected: 07/11/2024 (Approximate), Expires: 05/11/2025 [facility] Work Phone: Comment on above: Expected: 07/11/2024 (Approximate), Expires: 05/11/2025 Start: 05-07-2024 End: 03-07-2025 Thyrotropin [Units/volume] in Serum or Plasma TSH Lab Routine Hypothyroidism (acquired) ([facility]) Expected: 05/07/2024 (Approximate), Expires: 03/07/2025 [facility] Work Phone: Comment on above: Expected: 05/07/2024 (Approximate), Expires: 03/07/2025 Start: 05-07-2024 End: 03-07-2025 Thyroxine (T4) free [Mass/volume] in Serum or Plasma T4, free Lab Routine Hypothyroidism (acquired) ([facility]) Expected: 05/07/2024 (Approximate), Expires: 03/07/2025 [facility] Comment on above: Expected: 05/07/2024 (Approximate), Expires: 03/07/2025 Start: 05-02-2024 End: 05-02-2024 Patient encounter procedure 05/02/2024 4:30 PM EST Office Visit [facility] [address] [place] [address] Whit Sorensen NP [address] [place] [phone] [facility] Start: 03-28-2024 End: 03-28-2024 Patient encounter procedure [facility] Comment on above: Arrived Start: 03-28-2024 End: 03-28-2025 Basic metabolic 1998 panel - Serum or Plasma Basic metabolic panel Lab Routine Pre-operative clearance Expected: 03/28/2024 (Approximate), Expires: 03/28/2025 [facility] Comment on above: Expected: 03/28/2024 (Approximate), Expires: 03/28/2025 Start: 03-28-2024 End: 03-28-2025 CBC W Auto Differential panel - Blood CBC and differential Lab Routine Pre-operative clearance Expected: 03/28/2024 (Approximate), Expires: 03/28/2025 [facility] Work Phone: Comment on above: Expected: 03/28/2024 (Approximate), Expires: 03/28/2025 Start: 03-28-2024 End: 03-28-2025 ECG 12 lead ECG 12 lead ECG Routine Pre-operative clearance Expected: 03/28/2024 (Approximate), Expires: 03/28/2025 [facility] Comment on above: Expected: 03/28/2024 (Approximate), Expires: 03/28/2025 Start: 03-27-2024 End: 03-27-2024 Patient encounter procedure 03/27/2024 4:00 PM EDT Office Visit [facility] [address] [place] [address] Campbell Bcah PA [address] [place] [phone] [facility] Start: 03-08-2024 End: 03-08-2024 Patient encounter procedure 03/08/2024 3:00 PM EDT Office Visit [facility] [address] [place] [id number] Whit Sorensen NP [address] [place] [address] [facility] Start: 02-22-2024 End: 02-22-2024 Patient encounter procedure [facility] Comment on above: Tinea pedis, recurre nt Start: 02-25-2023 Influenza vaccination C [facility] Start: 06-27-2022 DEPRESSION ASSESSMENT DEPRESSION ASS ESSMENT [facility] Start: 02-25-2022 [facility] Start: 01-26-2022 End: 03-28-2022 Basic metabolic 2000 panel - Serum or Plasma BASIC METABOLIC PNL Lab Routine Lumbar disc herniation Radiculopathy of lumbar region Expected: 01/26/2022, Expires: 03/28/2022 [facility] Work Phone: Comment on above: Expected: 01/26/2022 , Expires: 03/28/2022 Start: 2020 SHINGRIX VACCINE (1 of 2) SHINGRIX VACCINE (1 of 2) [facility] Start: 2015 COLOGUARD (FIT-DNA) COLOGUARD (FIT-D NA) [facility] Start: 2015 Colonoscopy COLONOSCOPY [facility] Start: 2015 COLORECTAL CANCER SCREENING COLORECTAL CANCER SCREENING [facility] Start: [address] COLONOGRAPHY [facility] Start: 2015 DIABETES SCREEN DIABETES SCREEN [facility] Start: 2015 FECAL OCCULT BLOOD FECAL OCCULT BLOO D [facility] Start: 2015 Lipid 1996 panel - Serum or Plasma Lipid Screening [facility] Start: 2015 LIPID SCREEN LIPID SCREEN [facility] Start: 2015 SIGMOIDOSCOPY SIGMOIDOSCOPY [facility] Start: 2010 Mammography [facility] Start: 2010 Screening for malign ant neoplasm of breast Mammogram [facility] Start: 2000 HPV TESTING HPV TESTING [facility] Start: 2000 Screening for malign ant neoplasm of cervix HPV/Cotest [facility] Start: 1991 PAP TESTING PAP TESTING [facility] Start: 1991 Screening for malign ant neoplasm of cervix Pap Smear [facility] Start: 1989 Urine microalbumin profile [facility] Start: 1988 HEPATITIS C SCREENING HEPATITIS C SC REENING [facility] Start: 1988 HIV SCREENING HIV SCREENING [facility] Start: 1982 Adult depression screening assessment DEPRESSION SCREENING [facility] Start: 1976 PNEUMOCOCCAL (1 - PCV) PNEUMOCOCCAL (1 - PCV) [facility] Start: 1976 Pneumococcal vaccination Pneumococcal Vaccine (1 - PCV) [facility] Start: 1975 COVID-19 VACCINE (#1) COVID-19 VACCI NE (#1) [facility] Start: 02-18-1971 COVID-19 VACCINE (#1) COVID-19 VACCI NE (#1) [facility] Start: 1970 HEPATITIS B (1 of 3 - 3-dose series) HEPATITIS B (1 of 3 - 3-dose series) [facility] Start: 1970 Hepatitis B Vaccine (1 of 3 - 3-dose series) Hepatitis B Vaccine (1 of 3 - 3-dose series) [facility] Start: 1970 Screening for malign ant neoplasm of colon [facility] End: 01-02-2023 Mri spinal canal lumbar w/o contrast material MRI LUMBAR SPINE WO IVCON Radiology Routine Radiculopathy of lumbar region 1 Occurrences starting 12/03/2021 until 01/02/2023 [facility] Work Phone: Comment on above: 1 Occurrences starti ng 12/03/2021 until 01/02/2023 End: 01-02-2023 Mri spinal canal thoracic w/o contrast matrl MRI THORACIC SPINE WO IVCON Radiology Routine Radiculopathy of lumbar region 1 Occurrences starting 12/03/2021 until 01/02/2023 [facility] Work Phone: Comment on above: 1 Occurrences starti ng 12/03/2021 until 01/02/2023 [facility] Immunizations Immunization Date Immunization Notes Care Provider Lorena root 04-24-2009 novel influenza-H1N1 -09, preservative-free, injectable Whit Sorensen NP Work Phone: [facility] 04-24-2009 influenza virus vacc ine, unspecified formulation Mri Bore/1.5t) [facility] Payers Date Payer Category Payer Private Health Insurance [id number] 2023 Private Health Insurance [id number] 2021 Unknown [employer] PPO OOS [id number] 2021-Present [phone] [address] [place] [address] PPO [id number] 2021 Unknown [employer] PPO OOS [id number] 2021-Present [phone] [address] [place] [address] PPO [id number] 2020 Medicaid [employer] MEDICAID [id number] 2020-Present [phone] [address] [place] [address] Medicaid [id number] 2020 Medicaid [id number] 1970 Unknown [id number] 2.16.840.1.251272.3.579.2. 593 1970 Unknown [id number] .16.840.1.164069.3.579.2. 593 1970 Unknown [id number] 2.16.840.1.680712.3.579.2. 593 1970 Unknown [id number] 2.16.840.1.369016.3.579.2. 593 1970 Unknown [id number] 2.16.840.1.615233.3.579.2. 593 1970 Unknown [id number] 2.16.840.1.558874.3.579.2. 593 1970 Unknown [id number] 2.16.840.1.015418.3.579.2. 593 1970 Unknown [id number] 2.16.840.1.429960.3.579.2. 593 1970 Unknown [id number] 2.16.840.1.492167.3.579.2. 593 1970 Unknown [id number] 2.16.840.1.369487.3.579.2. 593 1970 Unknown [id number] 2.16.840.1.965123.3.579.2. 593 1970 Unknown [id number] 2.16.840.1.574879.3.579.2. 593 1970 Unknown [id number] 2.16.840.1.257788.3.579.2. 593 1970 Unknown [id number] 2.16.840.1.153293.3.579.2. 173 1970 Unknown [id number] 2.16.840.1.591156.3.579.2. 1259 1970 Unknown [id number] 2.16840.1.685263.3.579.2. 1259 1970 Unknown [id number] 2.16.840.1.957285.3.579.2. 1259 1970 Unknown [id number] 2.16.840.1.625858.3.579.2. 1259 1970 Unknown [id number] 2.16.840.1.008209.3.579.2. 1259 1970 Unknown [id number] 2.16.840.1.247821.3.579.2. 1259 1970 Unknown [id number] 2.16.840.1.831581.3.579.2. 1259 1970 Unknown [id number] 2.16.840.1.511040.3.579.2. 1259 1970 Unknown [id number] 2.16.840.1.929589.3.579.2. 1259 1959 Self-pay [id number] 1959 Unknown [id number] 1959 Unknown [id number] 1959 Unknown [id number] Unknown [id number] Social History Date Type [facility]ail [facility] Start: 1970 Sex Assigned At Female [facility] Start: 06-27-1989 End: 06-26-2023 Tobacco smoking status MSIS Smokes tobacco daily [facility] Start: 12-03-2021 Tobacco use and exposure User of smo keless tobacco [facility] Start: 12-03-2021 Alcohol intake Lifetime non-d mar (finding) [facility] Start: 12-03-2021 History SDOH Alcohol Frequency 1 [facility] Start: 11-23-2021 End: 12-03-2021 Exposure to SARS-CoV-2 (event) Unable to assess [facility] Start: 12-12-2021 End: 02-02-2022 Exposure to SARS-CoV-2 (event) Not sure [facility] Start: 12-03-2021 End: 05-24-2023 History of Social function [facility] Start: 12-03-2021 End: 05-24-2023 Tobacco use panel [facility] National Score (1-10 0), lower number is lower risk 60 [facility] Start: 10-30-2021 Gender identity Identifies as female gender (finding) [facility] Start: 06-27-1989 History of tobacco use [...] Oral, Daily, Discontinue the 30mg script HYDROcodone-acetaminophen (Buckholts) 5-325 MG tablet 1 tablet, Oral, Every [...] INJECTION 2017 OVARIAN CYST REMOVAL 1994 TONSILLECTOMY 1975 TUBAL LIGATION Bilateral 2000 URETHRA DILATION Bladder Function and dilation of urethra, Dr Hearn, [facility] family history includes Autism in [...] yearly and prn documented in this encounter [facility] 03-28-2024 Instructions Whit Sorensen NP - 03/28/2024 5:00 PM EDT Start taking trazodone 50mg once at night for 5 days, then every other night for 5 doses, then start elavil (amitriptyline) 10mg dose at bedtime documented in this encounter [facility] 03-26-2024 History of Presen t illness Narrative Associated Problem(s): Elevated blood pressure, situational Likely secondary to her pain levels today Will monitor Associated Problem(s): Cervical radiculopathy Steroids, cont muscle relaxer, add norco OARRS reviewed as well Off work noted given for today and tomorrow Headaches have gotten worse in the last week, has had this headache since the beginning of the wknd, if she turns too much on the left side the muscle goes into a spasms. Pt feels burning sensation down left of neck Revision not til dec. Therapy is on hold til processed thru insurance. Pt has been alternation tylenol and motrin with no Releaf, especially during the night. Headache is at the base of the neck and pain is in shoulder and down the neck: not migraine. Images from the original note were not included. Nato Short is a 53 y.o. female presents with chief complaint of No chief complaint on file. HPI: See HPI from Yael Martinez MA This is not like her migraine LACY's , this is coming from her neck No phonophobia or photophobia, no vision changes, no NV Neck Pain This is a chronic problem. The current episode started more than 1 year ago. The problem occurs daily. The problem has been rapidly worsening. The pain is associated with nothing. The pain is present in the left side. The quality of the pain is described as aching and stabbing. The pain is severe. The symptoms are aggravated by twisting. The pain is Worse during the night. Stiffness is present All day. Associated symptoms include headaches and tingling (finger tips to left hand). Pertinent negatives include no chest pain, fever, leg pain, numbness (finger tips left hand), pain with swallowing, photophobia, syncope or trouble swallowing. She has tried acetaminophen and NSAIDs for the symptoms. The treatment provided no relief. SUBJECTIVE: MEDICATIONS: Current Outpatient Medications Medication Instructions albuterol HFA 90 mcg/act inhaler 2 puffs, Inhalation, Every 4 hours PRN atorvastatin (LIPITOR) 20 mg, Oral, Nightly ciclopirox (Penlac) 8 % solution Topical, Nightly DULoxetine (CYMBALTA) 60 mg, Oral, Daily, Discontinue the 30mg script HYDROcodone-acetaminophen (Buckholts) 5-325 MG tablet 1 tablet, Oral, Every 8 hours PRN hydrocortisone 2.5 % ointment Topical, 2 times daily levothyroxine (SYNTHROID, LEVOXYL) 175 mcg, Oral, Daily before breakfast omeprazole (PRILOSEC) 40 mg, Oral, 2 times daily before meals phentermine (ADIPEX-P) 37.5 mg, Oral, Daily before breakfast predniSONE (DELTASONE) 10 mg, Oral, Daily, 2 pills 3 times daily for 3 days, then 2 pills 2 times daily for 3 days, then 1 pill 2 times daily for 3 days, and then 1 pill daily for 3 days. Take with food SUMAtriptan (IMITREX) 6 mg, Subcutaneous, Once as needed terbinafine (LamISIL AT) 1 % cream Topical, 2 times daily tiZANidine (ZANAFLEX) 4 mg, Oral, Every 8 hours PRN traZODone (DESYREL) 100 mg, Oral, Nightly ALLERGIES: Allergies Allergen Reactions Penicillin G Swelling and Rash Penicillins Rash and Swelling Chlorhexidine Itching REVIEW OF SYMPTOMS: Review of Systems Constitutional: Negative for appetite change, chills and fever. HENT: Negative for congestion, ear pain, sore throat and trouble swallowing. Eyes: Negative for photophobia, pain, discharge, redness and visual disturbance. Respiratory: Negative for cough, shortness of breath and wheezing. Cardiovascular: Negative for chest pain, palpitations, leg swelling and syncope. Gastrointestinal: Negative for abdominal pain, blood in stool, constipation, diarrhea, nausea and vomiting. Genitourinary: Negative for difficulty urinating, dysuria and frequency. Musculoskeletal: Positive for neck pain and neck stiffness. Negative for arthralgias, back pain, joint swelling and myalgias. Skin: Negative for rash and wound. Neurological: Positive for tingling (finger tips to left hand) and headaches. Negative for dizziness, tremors, seizures, syncope and numbness (finger tips left hand). Psychiatric/Behavioral: Negative for behavioral problems, self-injury and [...] Function and dilation of urethra, Dr Hearn, [facility] family history includes Autism in her grandson; Depression in her mother; Heart disease in her father; Stroke in her mother. OBJECTIVE: Visit Vitals BP (!) 140/98 (BP Location: Left arm, Patient Position: Sitting, BP Cuff Size: Adult long) Pulse 89 Temp 98.5 F (Temporal) Resp 18 Ht 4' 11.75 Wt 217 lb 9.6 oz SpO2 94% BMI 42.85 kg/m Smoking Status Every Day BSA 2.04 [...] Tenderness: There is no abdominal tenderness. Musculoskeletal: Cervical back: Neck supple. Right lower leg: No edema. Left lower leg: No edema. Comments: Very limited ROM cervical spine, +muscle spasm to left paracervical region Tearful d/t pain, hand grasps 4/5 left 5/5 right, +radial/ulnar pulses bilat DTR's 2+ bilat UE/LE, no rash noted MMT 5/5 bilat LE Lymphadenopathy: Cervical: No cervical adenopathy. Skin: General: [...] file. Problem List Items Addressed This Visit Cervical radiculopathy - Primary Steroids, cont muscle relaxer, add norco OARRS reviewed as well Off work noted given for today and tomorrow Relevant Medications HYDROcodone-acetaminophen (Buckholts) 5-325 MG tablet predniSONE (Deltasone) 10 MG tablet Morbid obesity due to excess calories (CMS/HCC) Multiple thyroid nodules (CMS/HCC) Elevated blood pressure, situational Likely secondary to her pain levels today Will monitor documented in this encounter [facility] 03-09-2024 Note Chief Complaint: nec k pain, [...] (six) hours if needed., Disp: , Rfl: [id number] 50-325-40 mg tablet, Take 1 tablet by [...] and Sexual Activity (more content not included)... [facility] 03-08-2024 History of Presen t illness [...] Function and dilation of urethra, Dr Hearn, [facility] family history includes Autism in [...] tachycardia, unspecified (CMS/HCC) documented in this encounter [facility] 02-22-2024 History of Presen t illness Narrative Images from the original note were not included. Rash Location: left foot/toenails Duration: years Severity: mild Quality: itchy, marley Modifying Factors: better with [place]-Posay Eczema cream Associated symptoms: red, bumps, blister like Treatments tried: clotrimazole and betamethasone cream 0.1% Current treatments: moisturizers New patient, referred by Whit Sorensen NP All pertinent medical history, medications, and allergies were reviewed. General Exam: alert , oriented to person, place, and time , normal affect, well appearing Unaccompanied A focused exam completed based on patient reported problems, see below: 1. Tinea pedis of left foot Left Foot - Anterior Ill-defined erythema and scale in a moccasin distribution. Flared today Discussed that this is a fungal infection of the feet. Original treatment of Clotrimazole-Betamethasone was likely unsuccessful because steroids can flare fungal infections. Will have her start Lamisil cream 1 % BID for 4-6 weeks until clear. terbinafine (LamISIL AT) 1 % cream - Left Foot - Anterior Apply topically 2 (two) times a day Related Procedures Ambulatory referral to Dermatology 2. Tinea pedis, recurrent 3. Onychomycosis (3) Left 4th Toenail, Left 5th Toenail, Left Hallux Toenail Subungual hyperkeratosis with nail thickening The patient was informed that onychomycosis is a fungal infection of the nails. Treatment is not necessary, but can be treated with topical or oral antifungal agents. Recurrence can occur despite treatment in some cases. The goal is to grow out a normal nail which can take several months to occur. Start ciclopirox gel 8% apply once a day until new nail grows out. Related Medications Ciclopirox 8 % kit Apply 1 application topically Daily 4. Seborrheic keratosis (2) Left Buccal Cheek, Left Malar Cheek Stuck on verrucous, max-brown papules and plaques. Patient was counseled regarding these benign growths. Removal is normally not necessary, but they may be removed if they are symptomatic or for cosmetic reasons. 5. Allergic contact dermatitis due to cosmetics Left Lower Vermilion Lip, Left Upper Vermilion Lip, Mid Lower Vermilion Lip, Mid Upper Vermilion Lip, Right Lower Vermilion Lip, Right Upper Vermilion Lip Erythematous papules and patches on and around the lips. Slightly flared today,. Patient has tried multiple chapsticks and lotions for this area. Would like her to discontinue all chapstick and other cosmetics to this area until it is cleared. Start Hydrocortisone ointment 2.5% BID PRN while flared. Hold when clear. Use Aquaphor and Vaseline as a barrier for the lips. Try to avoid licking the lips. Notify office if flaring despite treatment. Follow up in 4 weeks. Related Medications hydrocortisone 2.5 % ointment Apply topically 2 (two) times a day Next Visit: 4 weeks documented in this encounter [facility] 04-16-2022 Note EXAMINATION: XR CHES T 2 [...] authenticated by: NAOMIE THEODORE Date: 2022-04-16 09:[address] [facility] 02-24-2022 Miscellaneous Notes Initial Office Visit [...] Jane Carpenter Ma documented in this encounter [facility] 02-12-2022 Miscellaneous Notes XR and MRI results were sent to patient's mailing address. documented in this encounter [facility] 02-02-2022 Miscellaneous Notes Called patient, verified [...] will have my daughter take me to [facility] and call you tomorrow with an update. Can we call patient and get current description of her pain. The purpose of trial of LESI is to see if this would improve her current pain symptoms Yasmeen Azul APRN.CNP documented in this encounter [facility] 02-02-2022 Miscellaneous Notes Called patient, left [...] in the ED. documented in this encounter [facility] 01-27-2022 Miscellaneous Notes Order was faxed and received confirmation. For patient to continue Mobic recommend check BMP prior to refilling it Yasmeen Azul APRN.INTERNET RESEARCHER documented in this encounter [facility] 01-14-2022 Miscellaneous Notes Please schedule a [...] January 14, 2022 documented in this encounter [facility] 01-13-2022 Note HNO ID: [id number] Author: Salbador Palacios, raised printer Service: Radiology Author Type: Die Cast Supervisor Type: Progress Notes Filed: 01/13/2022 2:51 PM [...] DATA: Not applicable SIGNED BY: Salbador Palacios [facility] January 13, 2022 2:50 PM [facility] 01-13-2022 History of Presen t illness Narrative [...] DATA: Not applicable SIGNED BY: Salbador Palacios [facility] January 13, 2022 2:50 PM documented in this encounter [facility] 12-29-2021 Miscellaneous Notes PLAN: initial OV [...] Lazarus Johnson MD documented in this encounter [facility] 12-21-2021 Note HNO ID: [id number] Author: RT Adele(R) Service: ? Author Type: [...] TIME: 1:20 PM PAGER/CONTACT #: [facility] 12-21-2021 History of Presen t illness Narrative RADIOLOGY SERVICE PROGRESS NOTE DATE OF SERVICE: December 21, 2021 TIME OF SERVICE: 1:20 pm EVENT: EXAM/PROCEDURE NOT COMPLETED - Patient became claustrophobic, reaction was: Moderate. ADDITIONAL EVENT DETAILS: no images acquired for mri t,l-spine SIGNATURE: RT Adele(R) PATIENT NAME: Nato Short DATE: December 21, 2021 TIME: 1:20 PM PAGER/CONTACT #: documented in this encounter [facility] 12-03-2021 Note HNO ID: [id number] Author: RT Elda(Nicky) Service: ? Author Type: [...] RT Elda(R) December 03, 2021 4:38 PM [facility] 12-03-2021 Note HNO ID: [id number] Author: Lazarus Johnson MD Service: ? Author Type: Physician Type: Progress Notes Filed: 12/14/2021 9:39 AM Note Text: SUBJECTIVE: Ms. Short a 51 year old female referred by Self Referred presents with the complaint of low back pain. She wants to know if she is a candidate for SCS (saw Medical Referral Source website). Patient reports the date of onset [...] supervised home exercise program (HEP): No 5. Post Secondary Professional: No Passive conservative therapy lasting 6 weeks in the last six months (see below) 1. Medical devises: No 2. Acupuncture: No 3. Tens unit: No 4. Prescription pain medication: No 5. 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 EXAMINATION: [id number]: Scoliosis: No Pelvic Tilt: No Leg Length [...] s (more content not included)... [facility] 12-03-2021 History of Presen t illness Narrative [...] 2021 4:38 PM documented in this encounter [facility] 12-03-2021 History of Presen t illness [...] supervised home exercise program (HEP): No 5. Post Secondary Professional: No Passive conservative therapy lasting 6 weeks in the last six months (see below) 1. Medical devises: No 2. Acupuncture: No 3. Tens unit: No 4. Prescription pain medication: No 5. 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 EXAMINATION: [id number]: Scoliosis: No Pelvic Tilt: No Leg Length [...] DDD. She has seen Dr. Montero in [place] - with no improvement after LESI and radiof frequency with no effect. Has had PT different series since 2017. She saw Dr. Hidalgo in [place] who referred to Dr. Perez because of [...] which included preparing to see the patient, [id number] patient care, completing clinical documentation, obtaining and/or reviewing separately obtained history, performing a medically appropriate examination, counseling and educating the patient/family/caregiver, ordering medications, tests, or procedures, communicating with other HCPs (not separately reported) and independently interpreting results (not separately reported). Lazarus Johnson MD documented in this encounter [facility] 12-02-2021 Miscellaneous Notes Patient was advised of the following: This is a follow up phone call regarding your appointment with Dr Johnson, which you are scheduled to see at [facility] on 12/03/2021 1) Have you been [...] need to reschedule please call us at [phone]. Left VM with new patient policy advised tpo call office with any questions or concerns'Keren Rosales MA documented in this encounter [facility] 11-19-2021 Note PROCEDURE: XR FOOT L [...] by: ZACH PEREZ Date: 2021-11-19 16:43 [facility] Evaluation note Diagnosis Degeneration of lumbar or lumbosacral intervertebral disc- Primary Radiculopathy of lumbar region Thoracic or lumbosacral neuritis or radiculitis, unspecified Radicular pain of left lower extremity Thoracic or lumbosacral neuritis or radiculitis, unspecified Discogenic low back pain Lumbago Hyperglycemia Other abnormal glucose History of fusion of cervical spine Arthrodesis status [facility] Radiculopathy of lumbar region- Primary Thoracic or lumbosacral neuritis or radiculitis, unspecified Lumbar disc herniation Displacement of lumbar intervertebral disc without myelopathy [facility] Diagnosis Lumbar disc herniation- Primary Displacement [...] spine Arthrodesis status [facility] Radiculopathy of lumbar region Thoracic or lumbosacral neuritis or radiculitis, unspecified Degeneration of lumbar or lumbosacral intervertebral disc Radicular pain of left lower extremity Thoracic or lumbosacral neuritis or radiculitis, unspecified Discogenic low back pain Lumbago [facility] Encounter for annual wellness visit- Primary Migraine with aura and without status migrainosus, not intractable ([facility]/HCC) Primary insomnia Persistent disorder of initiating or maintaining sleep Pre-operative clearance Unspecified pre-operative examination Elevated blood pressure, situational Morbid obesity due to excess calories (CMS/HCC) Current smoker documented in this encounter [facility] HealthcareEvaluation note* Diagnosis Anxiety and depression (CMS/HCC)- Primary Gastroesophageal reflux disease, unspecified whether esophagitis present Hypothyroidism (acquired) (CMS/HCC) Unspecified hypothyroidism Yeast dermatitis Wheezing Acute non-recurrent maxillary sinusitis Antibiotic-induced yeast infection Hypothyroidism (acquired) ([facility])- Primary Unspecified hypothyroidism Anxiety and depression ([facility]) Mixed hyperlipidemia ([facility]) Mixed hyperlipidemia Primary insomnia Persistent disorder of initiating or maintaining sleep Hypothyroidism (acquired) ([facility])- Primary Unspecified hypothyroidism 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[facility]) Chronic lymphocytic thyroiditis Morbid obesity due to excess calories ([facility]) Gastroesophageal reflux disease, unspecified whether esophagitis present Hypothyroidism (acquired) ([facility])- Primary Unspecified hypothyroidism Morbid obesity due to excess calories ([facility]) Yeast dermatitis Encounter for screening mammogram for malignant neoplasm of breast Tinea pedis, recurrent Dermatophytosis of foot Lumbar radiculopathy- Primary Thoracic or lumbosacral neuritis or radiculitis, unspecified Morbid obesity due to excess calories ([facility]) Hypothyroidism (acquired) ([facility])- Primary Unspecified hypothyroidism Major depressive disorder, recurrent, moderate ([facility]) Major depressive disorder, recurrent episode, moderate Supraventricular tachycardia, unspecified ([facility]) Morbid obesity due to excess calories ([facility]) Cervical radiculopathy- Primary Brachial neuritis or radiculitis nos Elevated blood pressure, situational Morbid obesity due to excess calories ([facility]) Multiple thyroid nodules ([facility]) Nontoxic multinodular goiter Encounter for annual wellness visit- Primary Migraine with aura and without status migrainosus, not intractable ([facility]) Primary insomnia Persistent disorder of initiating or maintaining sleep Pre-operative clearance Unspecified pre-operative examination Elevated blood pressure, situational Morbid obesity due to excess calories ([facility]) Current smoker Oral thrush- Primary Candidiasis of mouth documented in this encounter [facility]* Diagnosis Anxiety and depression ([facility])- Primary Gastroesophageal reflux disease, unspecified whether esophagitis present Hypothyroidism (acquired) ([facility]) Unspecified hypothyroidism Yeast dermatitis Wheezing Acute non-recurrent maxillary sinusitis Antibiotic-induced yeast infection Hypothyroidism (acquired) ([facility])- Primary Unspecified hypothyroidism Anxiety and depression ([facility]) Mixed hyperlipidemia ([facility]) Mixed hyperlipidemia Primary insomnia Persistent disorder of initiating or maintaining sleep Hypothyroidism (acquired) ([facility])- Primary Unspecified hypothyroidism 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[facility]) Chronic lymphocytic thyroiditis Morbid obesity due to excess calories ([facility]) Gastroesophageal reflux disease, unspecified whether esophagitis present Hypothyroidism (acquired) ([facility])- Primary Unspecified hypothyroidism Morbid obesity due to excess calories ([facility]) Yeast dermatitis Encounter for screening mammogram for malignant neoplasm of breast Tinea pedis, recurrent Dermatophytosis of foot Lumbar radiculopathy- Primary Thoracic or lumbosacral neuritis or radiculitis, unspecified Morbid obesity due to excess calories ([facility]) Hypothyroidism (acquired) ([facility])- Primary Unspecified hypothyroidism Major depressive disorder, recurrent, moderate ([facility]) Major depressive disorder, recurrent episode, moderate Supraventricular tachycardia, unspecified ([facility]) Morbid obesity due to excess calories ([facility]) Cervical radiculopathy- Primary Brachial neuritis or radiculitis nos Elevated blood pressure, situational Morbid obesity due to excess calories ([facility]) Multiple thyroid nodules ([facility]) Nontoxic multinodular goiter Encounter for annual wellness visit- Primary Migraine with aura and without status migrainosus, not intractable ([facility]) Primary insomnia Persistent disorder of initiating or maintaining sleep Pre-operative clearance Unspecified pre-operative examination Elevated blood pressure, situational Morbid obesity due to excess calories ([facility]) Current smoker Gastroesophageal reflux disease, unspecified whether esophagitis present documented in this encounter [facility]* Diagnosis Anxiety and depression ([facility])- Primary Gastroesophageal reflux disease, unspecified whether esophagitis present Hypothyroidism (acquired) ([facility]) Unspecified hypothyroidism Yeast dermatitis Wheezing Acute non-recurrent maxillary sinusitis Antibiotic-induced yeast infection Hypothyroidism (acquired) ([facility])- Primary Unspecified hypothyroidism Anxiety and depression ([facility]) Mixed hyperlipidemia ([facility]) Mixed hyperlipidemia Primary insomnia Persistent disorder of initiating or maintaining sleep Hypothyroidism (acquired) ([facility])- Primary Unspecified hypothyroidism 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[facility]) Chronic lymphocytic thyroiditis Morbid obesity due to excess calories ([facility]) Gastroesophageal reflux disease, unspecified whether esophagitis present Hypothyroidism (acquired) ([facility])- Primary Unspecified hypothyroidism Morbid obesity due to excess calories ([facility]) Yeast dermatitis Encounter for screening mammogram for malignant neoplasm of breast Tinea pedis, recurrent Dermatophytosis of foot Lumbar radiculopathy- Primary Thoracic or lumbosacral neuritis or radiculitis, unspecified Morbid obesity due to excess calories ([facility]) Hypothyroidism (acquired) ([facility])- Primary Unspecified hypothyroidism Major depressive disorder, recurrent, moderate ([facility]) Major depressive disorder, recurrent episode, moderate Supraventricular tachycardia, unspecified ([facility]) Morbid obesity due to excess calories ([facility]) Cervical radiculopathy- Primary Brachial neuritis or radiculitis nos Elevated blood pressure, situational Morbid obesity due to excess calories ([facility]) Multiple thyroid nodules ([facility]) Nontoxic multinodular goiter Encounter for annual wellness visit- Primary Migraine with aura and without status migrainosus, not intractable ([facility]) Primary insomnia Persistent disorder of initiating or maintaining sleep Pre-operative clearance Unspecified pre-operative examination Elevated blood pressure, situational Morbid obesity due to excess calories ([facility]) Current smoker Cervical radiculopathy- Primary Brachial neuritis or radiculitis nos Cervical myelopathy ([facility]) Cervical spondylosis with myelopathy documented in this encounter [facility]* Diagnosis Anxiety and depression ([facility])- Primary Gastroesophageal reflux disease, unspecified whether esophagitis present Hypothyroidism (acquired) ([facility]) Unspecified hypothyroidism Yeast dermatitis Wheezing Acute non-recurrent maxillary sinusitis Antibiotic-induced yeast infection Hypothyroidism (acquired) ([facility])- Primary Unspecified hypothyroidism Anxiety and depression ([facility]) Mixed hyperlipidemia ([facility]) Mixed hyperlipidemia Primary insomnia Persistent disorder of initiating or maintaining sleep Hypothyroidism (acquired) ([facility])- Primary Unspecified hypothyroidism 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[facility]) Chronic lymphocytic thyroiditis Morbid obesity due to excess calories ([facility]) Gastroesophageal reflux disease, unspecified whether esophagitis present Hypothyroidism (acquired) ([facility])- Primary Unspecified hypothyroidism Morbid obesity due to excess calories ([facility]) Yeast dermatitis Encounter for screening mammogram for malignant neoplasm of breast Tinea pedis, recurrent Dermatophytosis of foot Lumbar radiculopathy- Primary Thoracic or lumbosacral neuritis or radiculitis, unspecified Morbid obesity due to excess calories ([facility]) Hypothyroidism (acquired) ([facility])- Primary Unspecified hypothyroidism Major depressive disorder, recurrent, moderate ([facility]) Major depressive disorder, recurrent episode, moderate Supraventricular tachycardia, unspecified ([facility]) Morbid obesity due to excess calories ([facility]) Cervical radiculopathy- Primary Brachial neuritis or radiculitis nos Elevated blood pressure, situational Morbid obesity due to excess calories ([facility]) Multiple thyroid nodules ([facility]) Nontoxic multinodular goiter Encounter for annual wellness visit- Primary Migraine with aura and without status migrainosus, not intractable ([facility]) Primary insomnia Persistent disorder of initiating or maintaining sleep Pre-operative clearance Unspecified pre-operative examination Elevated blood pressure, situational Morbid obesity due to excess calories ([facility]) Current smoker Hypothyroidism (acquired) ([facility]) Unspecified hypothyroidism documented in this encounter [facility]* Diagnosis Anxiety and depression ([facility])- Primary Gastroesophageal reflux disease, unspecified whether esophagitis present Hypothyroidism (acquired) ([facility]) Unspecified hypothyroidism Yeast dermatitis Wheezing Acute non-recurrent maxillary sinusitis Antibiotic-induced yeast infection Hypothyroidism (acquired) ([facility])- Primary Unspecified hypothyroidism Anxiety and depression ([facility]) Mixed hyperlipidemia ([facility]) Mixed hyperlipidemia Primary insomnia Persistent disorder of initiating or maintaining sleep Hypothyroidism (acquired) ([facility])- Primary Unspecified hypothyroidism 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[facility]) Chronic lymphocytic thyroiditis Morbid obesity due to excess calories ([facility]) Gastroesophageal reflux disease, unspecified whether esophagitis present Hypothyroidism (acquired) ([facility])- Primary Unspecified hypothyroidism Morbid obesity due to excess calories ([facility]) Yeast dermatitis Encounter for screening mammogram for malignant neoplasm of breast Tinea pedis, recurrent Dermatophytosis of foot Lumbar radiculopathy- Primary Thoracic or lumbosacral neuritis or radiculitis, unspecified Morbid obesity due to excess calories ([facility]) Hypothyroidism (acquired) ([facility])- Primary Unspecified hypothyroidism Major depressive disorder, recurrent, moderate ([facility]) Major depressive disorder, recurrent episode, moderate Supraventricular tachycardia, unspecified ([facility]) Morbid obesity due to excess calories ([facility]) Cervical radiculopathy- Primary Brachial neuritis or radiculitis nos Elevated blood pressure, situational Morbid obesity due to excess calories ([facility]) Multiple thyroid nodules ([facility]) Nontoxic multinodular goiter Encounter for annual wellness visit- Primary Migraine with aura and without status migrainosus, not intractable ([facility]) Primary insomnia Persistent disorder of initiating or maintaining sleep Pre-operative clearance Unspecified pre-operative examination Elevated blood pressure, situational Morbid obesity due to excess calories ([facility]) Current smoker Muscle spasm- Primary Spasm of muscle documented in this encounter [facility] HealthcareEvaluation note* Diagnosis Hypothyroidism (acquired) ([facility])- Primary Unspecified hypothyroidism documented in this encounter [facility] HealthcareEvaluation note* Diagnosis Hypothyroidism (acquired) ([facility])- Primary Unspecified hypothyroidism Major depressive disorder, recurrent, moderate (HCC) ([facility]) Major depressive disorder, recurrent episode, moderate Supraventricular tachycardia, unspecified ([facility]) Morbid obesity due to excess calories ([facility]) documented in this encounter [facility]Evaluation note* Diagnosis Anxiety and depression ([facility])- Primary Gastroesophageal reflux disease, unspecified whether esophagitis present Hypothyroidism (acquired) ([facility]) Unspecified hypothyroidism Yeast dermatitis Wheezing Acute non-recurrent maxillary sinusitis Antibiotic-induced yeast infection Hypothyroidism (acquired) ([facility])- Primary Unspecified hypothyroidism Anxiety and depression ([facility]) Mixed hyperlipidemia ([facility]) Mixed hyperlipidemia Primary insomnia Persistent disorder of initiating or maintaining sleep Hypothyroidism (acquired) ([facility])- Primary Unspecified hypothyroidism 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[facility]) Chronic lymphocytic thyroiditis Morbid obesity due to excess calories ([facility]) Gastroesophageal reflux disease, unspecified whether esophagitis present Hypothyroidism (acquired) ([facility])- Primary Unspecified hypothyroidism Morbid obesity due to excess calories ([facility]) Yeast dermatitis Encounter for screening mammogram for malignant neoplasm of breast Tinea pedis, recurrent Dermatophytosis of foot Lumbar radiculopathy- Primary Thoracic or lumbosacral neuritis or radiculitis, unspecified Morbid obesity due to excess calories ([facility]) Hypothyroidism (acquired) ([facility])- Primary Unspecified hypothyroidism Major depressive disorder, recurrent, moderate ([facility]) Major depressive disorder, recurrent episode, moderate Supraventricular tachycardia, unspecified ([facility]) Morbid obesity due to excess calories ([facility]) Cervical radiculopathy- Primary Brachial neuritis or radiculitis nos Elevated blood pressure, situational Morbid obesity due to excess calories ([facility]) Multiple thyroid nodules ([facility]) Nontoxic multinodular goiter Encounter for annual wellness visit- Primary Migraine with aura and without status migrainosus, not intractable ([facility]) Primary insomnia Persistent disorder of initiating or maintaining sleep Pre-operative clearance Unspecified pre-operative examination Elevated blood pressure, situational Morbid obesity due to excess calories ([facility]) Current smoker Spinal stenosis of lumbar region, unspecified whether neurogenic claudication present- Primary Migraine with aura and without status migrainosus, not intractable ([facility]) Primary insomnia Persistent disorder of initiating or maintaining sleep Mixed hyperlipidemia ([facility]) Mixed hyperlipidemia Anxiety and depression ([facility]) [place] Unspecified hypothyroidism Gastroesophageal reflux disease, unspecified whether esophagitis present documented in this encounter [facility]* Diagnosis Lumbar radiculopathy Thoracic or lumbosacral neuritis or radiculitis, unspecified documented in this encounter [facility]* Diagnosis Onychomycosis- Primary Dermatophytosis of nail Tinea pedis, recurrent Dermatophytosis of foot Seborrheic keratosis Tinea pedis of left foot Allergic contact dermatitis due to cosmetics documented in this encounter [facility]* Diagnosis Morbid obesity due to excess calories ([facility]) documented in this encounter [facility]* Diagnosis Mixed hyperlipidemia ([facility]) Mixed hyperlipidemia Hypothyroidism (acquired) [place] Unspecified hypothyroidism documented in this encounter [facility]* Diagnosis Primary insomnia Persistent disorder of initiating or maintaining sleep documented in this encounter [facility]* Diagnosis Mixed hyperlipidemia ([facility]) Mixed hyperlipidemia documented in this encounter [facility]* Diagnosis Cervical radiculopathy- Primary Brachial neuritis or radiculitis nos Elevated blood pressure, situational Morbid obesity due to excess calories ([facility]) Multiple thyroid nodules [place] Nontoxic multinodular goiter documented in this encounter [facility]* Diagnosis Anxiety and depression ([facility])- Primary Gastroesophageal reflux disease, unspecified whether esophagitis present Hypothyroidism (acquired) ([facility]) Unspecified hypothyroidism Yeast dermatitis Wheezing Acute non-recurrent maxillary sinusitis Antibiotic-induced yeast infection Hypothyroidism (acquired) ([facility])- Primary Unspecified hypothyroidism Anxiety and depression ([facility] Mixed hyperlipidemia ([facility]) Mixed hyperlipidemia Primary insomnia Persistent disorder of initiating or maintaining sleep Hypothyroidism (acquired) ([facility])- Primary Unspecified hypothyroidism 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[facility]) Chronic lymphocytic thyroiditis Morbid obesity due to excess calories (CMS/HCC) Gastroesophageal reflux disease, unspecified whether esophagitis present Hypothyroidism (acquired) (CMS/HCC)- Primary Unspecified hypothyroidism Morbid obesity due to excess calories (CMS/HCC) Yeast dermatitis Encounter for screening mammogram for malignant neoplasm of breast Tinea pedis, recurrent Dermatophytosis of foot Lumbar radiculopathy- Primary Thoracic or lumbosacral neuritis or radiculitis, unspecified Morbid obesity due to excess calories (CMS/HCC) Hypothyroidism (acquired) (CMS/HCC)- Primary Unspecified hypothyroidism Major [...] due to excess calories (CMS/HCC) Current smoker Hypothyroidism (acquired) (CMS/HCC) Unspecified hypothyroidism [facility] Diagnostic Procedure Only (Routine) - Closed Specialty Diagnoses / Procedures Referred By Sylvester varela Referred To Contact XR IMAGING Diagnoses Radiculopathy of lumbar region Degeneration of lumbar or lumbosacral intervertebral disc Radicular pain of left lower extremity Discogenic low back pain Procedures XR LUMBAR GENERAL 3V AP/LAT/L5-S1 RADEX SPINE LUMBOSACRAL 2/3 VIEWS Lazarus Johnson MD [address] [place] [address] Xr Imaging Referral ID Status Reason Start Date Expiration Date V isits Requested Visits Authorized [id number] Closed Auto-Generate d Referral 12/03/2021 01/02/2023 1 1 [facility] for visit Narrative* Consultation (Routine) - Closed Specialty Diagnoses / Procedures Referred By Contac t Referred To Contact Dermatology Diagnoses Tinea pedis, recurrent Procedures [place] OFFICE/OUTPATIENT NEW HIGH MDM 60 MINUTES Whit Sorensen, [place] [address] [place] [address] Campbell Bach PA [address] [place] [address] Referral ID Status Reason Start Date Expiration Date V isits Requested Visits Authorized [id number] Closed Specialty Services Required 01/05/2024 07/03/2024 1 1 [facility] Summary Purpose Family History No Family History [...] LUMBAR W/O CONTRAST MATERIAL Lazarus Johnson MD [address] [place] [address] Mr Imaging Referral ID Status Reason Start Date Expiration Date Visits Requested Visits Authorized [id number] Authorized Auto-Generat ed Referral 12/03/2021 12/21/2021 1 1 Specialty Diagnoses / Procedures Referred By Contac t Referred To Contact MR IMAGING Diagnoses Radiculopathy of lumbar region Procedures MRI THORACIC SPINE WO IVCON MRI SPINAL CANAL THORACIC W/O CONTRAST MATRL Lazarus Johnson MD [address] [place] [address] Mr Imaging Referral ID Status Reason Start Date Expiration Date Visits Requested Visits Authorized [id number] Authorized Auto-Generat ed Referral 12/03/2021 12/21/2021 1 1 Specialty Diagnoses / Procedures Referred By Contac t Referred To Contact XR IMAGING Diagnoses Radiculopathy of lumbar region Degeneration of lumbar or lumbosacral intervertebral disc Radicular pain of left lower extremity Discogenic low back pain Procedures XR LUMBAR GENERAL 3V AP/LAT/L5-S1 RADEX SPINE LUMBOSACRAL 2/3 VIEWS Lazarus Johnson MD [address] [place] [address] Xr Imaging Referral ID Status Reason Start Date Expiration Date V isits Requested Visits Authorized [id number] Closed Auto-Generate d Referral 12/03/2021 01/02/2023 1 1 Specialty Diagnoses / Procedures Referred By Contac t Referred To Contact Diagnoses Radiculopathy of lumbar region Lumbar disc herniation Procedures CONSULT TO SPINE SURGERY OFFICE/OUTPATIENT [facility] 60-74 MINUTES Lindy Gunderson, [place] [address] [address] [place] [id number] Referral ID Status Reason Start Date Expiration Date Visits Requested Visits Authorized [id number] Authorized PCP Requested Referral 01/14/2022 01/14/2023 1 1 Specialty Diagnoses / Procedures Referred By Contac t Referred To Contact Diagnoses Migraine with aura and without status migrainosus, not intractable (CMS/HCC) Whit Sorensen, NUNU [address] [place] [address] Referral ID Status Reason Start Date Expiration Date V isits Requested Visits Authorized [id number] Pending Review 03/28/2024 09/24/2024 1 1 Additional Source Comments INFORMATION SOURCE (unrecogn ized section and content) DATE CREATED AUTHOR 10/22/2020 [facility] DATE CREATED AUTHOR AUTHOR'S ORGANIZ ATION 01/29/2022 [facility] DATE CREATED AUTHOR AUTHOR'S ORGANIZ ATION 03/04/2022 [facility] DATE CREATED AUTHOR AUTHOR'S ORGANIZ ATION 07/21/2022 [facility] DATE CREATED AUTHOR AUTHOR'S ORGANIZ ATION 02/13/2023 [facility] DATE CREATED AUTHOR AUTHOR'S ORGANIZ ATION 03/30/2024 [facility] DATE CREATED AUTHOR AUTHOR'S ORGANIZ ATION 06/15/2024 [facility] Source Comments (unrecognize d section and content) In the event this informatio n is protected by the Federal Confidentiality of Alcohol and Drug Abuse Patient Records regulations: The Federal rules restrict any use of the information to criminally investigate or prosecute any alcohol or drug abuse patient.[facility] the event this information is protected by the Federal Confidentiality of Alcohol and Drug Abuse Patient Records regulations: The Federal rules restrict any use of the information to criminally investigate or prosecute any alcohol or drug abuse patient.[facility] the event this information is protected by the Federal Confidentiality of Alcohol and Drug Abuse Patient Records regulations: The Federal rules restrict any use of the information to criminally investigate or prosecute any alcohol or drug abuse patient.[facility] the event this information is protected by the Federal Confidentiality of Alcohol and Drug Abuse Patient Records regulations: The Federal rules restrict any use of the information to criminally investigate or prosecute any alcohol or drug abuse patient.[facility] the event this information is protected by the Federal Confidentiality of Alcohol and Drug Abuse Patient Records regulations: The Federal rules restrict any use of the information to criminally investigate or prosecute any alcohol or drug abuse patient.[facility] the event this information is protected by the Federal Confidentiality of Alcohol and Drug Abuse Patient Records regulations: The Federal rules restrict any use of the information to criminally investigate or prosecute any alcohol or drug abuse patient.[facility] the event this information is protected by the Federal Confidentiality of Alcohol and Drug Abuse Patient Records regulations: The Federal rules restrict any use of the information to criminally investigate or prosecute any alcohol or drug abuse patient.[facility] the event this information is protected by the Federal Confidentiality of Alcohol and Drug Abuse Patient Records regulations: The Federal rules restrict any use of the information to criminally investigate or prosecute any alcohol or drug abuse patient.[facility] the event this information is protected by the Federal Confidentiality of Alcohol and Drug Abuse Patient Records regulations: The Federal rules restrict any use of the information to criminally investigate or prosecute any alcohol or drug abuse patient.[facility] the event this information is protected by the Federal Confidentiality of Alcohol and Drug Abuse Patient Records regulations: The Federal rules restrict any use of the information to criminally investigate or prosecute any alcohol or drug abuse patient.[facility] Hospital[facility] the event this information is protected by the Federal Confidentiality of Alcohol and Drug Abuse Patient Records regulations: The Federal rules restrict any use of the information to criminally investigate or prosecute any alcohol or drug abuse patient.[facility] Hospital[facility] the event this information is protected by the Federal Confidentiality of Alcohol and Drug Abuse Patient Records regulations: The Federal rules restrict any use of the information to criminally investigate or prosecute any alcohol or drug abuse patient.[facility] Hospital[facility] the event this information is protected by the Federal Confidentiality of Alcohol and Drug Abuse Patient Records regulations: The Federal rules restrict any use of the information to criminally investigate or prosecute any alcohol or drug abuse patient.[facility] Reason for Visit (unrecogniz ed section and content) Reason Comments Radiology MRI Specialty Diagnoses / Procedures Referred By Contac t Referred To Contact MR IMAGING Diagnoses Radiculopathy of lumbar region Procedures MRI THORACIC SPINE WO IVCON MRI SPINAL CANAL THORACIC W/O CONTRAST MATRL Lazarus Johnson MD [address] [place] [address] [place] [address] Referral ID Status Reason Start Date Expiration Date V isits Requested Visits Authorized [id number] Closed Auto-Generate d Referral 12/23/2021 06/26/2022 1 [...] LUMBOSACRAL 2/3 VIEWS Lazarus Johnson MD [address] [facility] [place] [address] Xr Imaging Referral ID Status Reason Start Date Expiration Date V isits Requested Visits Authorized [id number] Closed Auto-Generate d Referral 12/03/2021 01/02/2023 1 1 Reason Comments Med Refill Reason Onset Date Comments Med Refill 02/13/2024 Reason Onset Date Comments Med Refill 03/14/2024 Reason Onset Date Comments Med Refill 03/20/2024 Care Teams (unrecognized sec tion and content) Beam Dyer Operator Relationship Specialty Start Date End Date Fidel Smith MD [address] [place] [phone] PCP - General Family Medicine 08/01/23 Beam Dyer Operator Relationship Specialty Start Date End Date Fidel Smith MD [address] [place] [address] PCP - General Family Medicine 08/01/23 Beam Dyer Operator Relationship Specialty Start Date End Date Fidel Smith MD [address] [place] [address] PCP - General Family Medicine 08/01/23 Beam Dyer Operator Relationship Specialty Start Date End Date Fidel Smith MD [address] [place] [address] PCP - General Family Medicine 08/01/23 Beam Dyer Operator Relationship Specialty Start Date End Date Fidel Smith MD [address] [place] [address] PCP - General Family Medicine 08/01/23 Beam Dyer Operator Relationship Specialty Start Date End Date Fidel Smith MD [address] [place] [phone] PCP - General Family Medicine 08/01/23 Beam Dyer Operator Relationship Specialty Start Date End Date Fidel Smith MD [address] [place] [address] PCP - General Family Medicine 08/01/23 Beam Dyer Operator Relationship Specialty Start Date End Date Fidel Smith MD [address] [place] [address] PCP - General Family Medicine 08/01/23 Beam Dyer Operator Relationship Specialty Start Date End Date Fidel Smith MD [address] [place] [address] PCP - General Family Medicine 08/01/23 Beam Dyer Operator Relationship Specialty Start Date End Date Fidel Smith MD [address] [place] [phone] PCP - General Family Medicine 08/01/23 Beam Dyer Operator Relationship Specialty Start Date End Date Fidel Smith MD [address] [place] [phone] PCP - General Family Medicine 08/01/23 Beam Dyer Operator Relationship Specialty Start Date End Date Fidel Smith MD [address] [place] [address] PCP - General Family Medicine 08/01/23 Beam Dyer Operator Relationship Specialty Start Date End Date Fidel Smith MD [address] [place] [address] PCP - General Family Medicine 08/01/23 Beam Dyer Operator Relationship Specialty Start Date End Date Fidel Smith MD [address] [place] [address] PCP - General Family Medicine 08/01/23 Beam Dyer Operator Relationship Specialty Start Date End Date Fidel Smith MD [address] [place] [address] PCP - General Family Medicine 08/01/23 Beam Dyer Operator Relationship Specialty Start Date End Date Fidel Smith MD [address] [place] [address] PCP - General Family Medicine 08/01/23 Beam Dyer Operator Relationship Specialty Start Date End Date Fidel Smith MD [address] [place] [address] PCP - General Family Medicine 08/01/23 Beam Dyer Operator Relationship Specialty Start Date End Date Fidel Smith MD [address] [place] [address] PCP - General Family Medicine 08/01/23 Beam Dyer Operator Relationship Specialty Start Date End Date Fidel Smith MD [address] [place] [address] PCP - General Family Medicine 08/01/23 Beam Dyer Operator Relationship Specialty Start Date End Date Fidel Smith MD [address] [place] [address] PCP - General Family Medicine 08/01/23 Beam Dyer Operator Relationship Specialty Start Date End Date Fidel Smith MD [address] [place] [address] PCP - General Family Medicine 08/01/23 Beam Dyer Operator Relationship Specialty Start Date End Date Fidel Smith MD [address] [place] [address] PCP - General Family Medicine 08/01/23 FOR [...] BE BASED ON THE PRIMARY CLINICAL RECORDS. [employer] [facility]. provides no warranty or guarantee of the accuracy or completeness of information in this document.
[2024-06-26 10:32] LABS: Anion Gap 14.1; BUN Creatinine Ratio 16.9; Calcium 9.2 mg/dL (8.5-10.1); Carbon Dioxide 29.4 mmol/L (21.0-32.0); Chloride 102 mmol/L (98-107); Estimated GFR (African America >60 (>=60 mL/min/1.73m^2); Estimated GFR (Non-African Ame >60 (>=60 mL/min/1.73m^2); Glucose 101 mg/dL (74-106); Potassium 3.5 mmol/L (3.5-5.1); Sodium 142 mmol/L (136-145)
[2024-06-26 10:36] LABS: Basophils Absolute Auto 0.1 10^3/uL (0.0-0.1); Basophils Percent Auto 0.6 % (0.2-2.0); Eosinophils Absolute Auto 0.1 10^3/uL (0.0-0.7); Hematocrit 45.9 % (36.0-48.0); Hemoglobin 15.3 g/dL (12.0-16.0); Immature Granulocytes Abs Auto 0.03 10^3/uL (0.00-0.03); Immature Granulocytes Pct Auto 0.4 % (0.0-0.5); Lymphocytes Absolute Auto 2.2 10^3/uL (1.2-3.8); Lymphocytes Percent Auto 28.1 % (20.5-60.0); Mean Corpuscular HGB Conc 33.3 g/dL (29.9-35.2); Mean Corpuscular Volume 93.1 fL (81.0-99.0); Mean Platelet Volume 9.9 fL (9.5-13.5); Monocytes Absolute Auto 0.5 10^3/uL (0.3-0.8); Monocytes Percent Auto 6.5 % (1.7-12.0); Neutrophils Absolute Auto 5.1 10^3/uL (1.4-6.5); Neutrophils Percent Auto 63.4 % (43.0-75.0); Platelet Count 365 10^3/uL (150-450); Red Blood Count 4.93 10^6/uL (4.20-5.40)
[2024-06-28 16:46] LABS: Free T4 1.11 ng/dL (0.76-1.46)
[2024-06-28 16:50] LABS: Thyroid Stimulating Hormone 7.279 uIU/mL (0.358-3.740)
== END 2024-06-26 08:16 | disposition home or self-care (01) ==
LOC: LAB 08:15
PROVIDERS: PCP Nurse Practitioner; Visit Provider Nurse Practitioner
DX: Z01.812 Encounter for preprocedural laboratory examination (principal); Z01.818 Encounter for other preprocedural examination; E03.9 Hypothyroidism, unspecified
CPT/HCPCS: 36415; 80048; 84439; 84443; 85025

== ENCOUNTER 2025-04-06 07:38 | Outpatient (OUT) | payer MEDICAID, SELFPAY ==
--- OUTSIDE RECORDS SUMMARY | 2025-04-06 07:42 | XMS_ITS | CCD ---
Author Organization [facility] Care Team Providers Care Family Practice Nurse Practitioner Name Role Phone Unavailable Primary Care Provider Unavailabl e AICHHOLZ, IMPLEMENTATION DIRECTOR WHIT Consulting Unavailable AICHHOLZ, IMPLEMENTATION DIRECTOR WHIT Attending Unavailable AICHHOLZ, IMPLEMENTATION DIRECTOR WHIT Admitting Unavailable AICHHOLZ, IMPLEMENTATION DIRECTOR WHIT Primary Care Unavailable AICHHOLZ, IMPLEMENTATION DIRECTOR WHIT Admitting Unavailable AICHHOLZ, IMPLEMENTATION DIRECTOR WHIT Primary Care Unavailable AICHHOLZ, IMPLEMENTATION DIRECTOR WHIT Consulting Unavailable AICHHOLZ, IMPLEMENTATION DIRECTOR WHIT Attending Unavailable AICHHOLZ, IMPLEMENTATION DIRECTOR WHIT Admitting Unavailable AICHHOLZ, IMPLEMENTATION DIRECTOR WHIT Primary Care Unavailable AICHHOLZ, IMPLEMENTATION DIRECTOR WHIT Attending Unavailable EWELINA, DR NAOMIE Du Consulting Unavailable AICHHOLZ, IMPLEMENTATION DIRECTOR WHIT Consulting Unavailable JAYASHREE, DR DONATO Admitting Unavailable AICHHOLZ, IMPLEMENTATION DIRECTOR WHIT Primary Care Unavailable JAYASHREE, DR DONATO Attending Unavailable AICHHOLZ, IMPLEMENTATION DIRECTOR WHIT Admitting Unavailable AICHHOLZ, IMPLEMENTATION DIRECTOR WHIT Primary Care Unavailable AICHHOLZ, IMPLEMENTATION DIRECTOR WHIT Attending Unavailable AICHHOLZ, IMPLEMENTATION DIRECTOR WHIT Primary Care Unavailable DR FIDEL SMITH Attending Unavailable DR FIDEL SMITH Admitting Unavailable DR NAOMIE THEODORE V Consulting Unavailable DR FIDEL SMITH Consulting Unavailable HEIDI MEJIAS Consulting Unavailable Naomie Velasquez Consulting Unavailable SISTER, TE Consulting Unavailable AICHHOLZ, IMPLEMENTATION DIRECTOR WHIT Primary Care Unavailable ONEIL LOPEZ Consulting Unavailable ONEIL LOPEZ Attending Unavailable ONEIL LOPEZ Admitting Unavailable Naomie Velasquez Consulting Unavailable DR MEY FARNSWORTH Attending Unavailable JAVAD, DR MATHIAS Admitting Unavailable AICHHOLZ, IMPLEMENTATION DIRECTOR WHIT Primary Care Unavailable DR MEY FARNSWORTH Consulting Unavailable AICHHOLZ, IMPLEMENTATION DIRECTOR WHIT Primary Care Unavailable DR LANDEN HEARN Consulting Unavailable DIOGENES MILLER Attending Unavailable DIOGENES MILLER Admitting Unavailable ZIA DESAI Consulting Unavailable AICHHOLZ, IMPLEMENTATION DIRECTOR WHIT Admitting Unavailable AICHHOLZ, IMPLEMENTATION DIRECTOR WHIT Consulting Unavailable AICHHOLZ, IMPLEMENTATION DIRECTOR WHIT Attending Unavailable MACK GUAMAN Primary Care Unavailable Naomie Velasquez Consulting Unavailable AICHHOLZ, IMPLEMENTATION DIRECTOR WHIT Primary Care Unavailable LING GAMING Attending Unavailable LING GAMING Admitting Unavailable DR ZACH PEREZ Consulting Unavailable LING GAMING Consulting Unavailable AICHHOLZ, IMPLEMENTATION DIRECTOR WHIT Admitting Unavailable AICHHOLZ, IMPLEMENTATION DIRECTOR WHIT Primary Care Unavailable AICHHOLZ, IMPLEMENTATION DIRECTOR WIHT Attending Unavailable AICHHOLZ, IMPLEMENTATION DIRECTOR WHIT Primary Care Unavailable AICHHOLZ, IMPLEMENTATION DIRECTOR WHIT Admitting Unavailable AICHHOLZ, IMPLEMENTATION DIRECTOR WHIT Consulting Unavailable AICHHOLZ, IMPLEMENTATION DIRECTOR WHIT Attending Unavailable Unavailable Primary Care Provider Unavailnia e AICHHOLZ, WHIT J. Primary Care Unavailable LAINE OROZCO Referring Unavailable AICHHOLZ, WHIT Attending Unavailable AICHHOLZ, WHIT Attending Unavailable AICHHOLZ, WHIT Attending Unavailable AICHHOLZ, WHIT Attending Unavailable AICHHOLZ, WHIT Attending Unavailable CAMPBELL BACH Attending Unavailable AICHHOLZ, WHIT Referring Unavailable AICHHOLZ, WHIT Attending Unavailable AICHHOLZ, WHIT Attending Unavailable AICHHOLZ, WHIT Attending Unavailable Fidel Smith MD Primary Care Provider Aichholz TRIMMER SORTER, Whit Unavailable Aichholz TRIMMER SORTER, Whit Unavailable Allergies Allergy Classification Reported Allergen(s) Allergy Type Date of Onset Reaction(s) Facility (2 sources) Penicillins Drug Allergy 3 Swelling [facility] (11 sources) Penicillins Drug Allergy 3 Swelling [facility] (2 sources) Penicillins Drug allergy (disorder) 3 [facility] (20 sources) Chlorhexidine Drug Allergy 2 Itching [facility] (20 sources) Penicillin G Drug Allergy 3 Swelling, Rash [facility] (20 sources) Penicillins Drug Allergy 3 Rash, Swelling [facility] Medications Current Medications Medication Drug Class(es) Dates Sig (Normalized) Sig (Original) acetaminophen 325 mg / HYDROcodone bitartrate 5 mg oral tablet (7 sources) Opioid Agonist Start: 03-26-2024 End: 03-31-2024 take 1 tablet by mouth every eight hours for pain HYDROcodone-acetami nophen ([place]) 5-325 MG tablet Indications: Cervical radiculopathy Take 1 tablet by mouth every 8 (eight) hours if needed for severe pain for up to 5 days 15 tablet 03/26/2024 03/31/2024 Active [id number] 200 actuat albuterol 0.09 mg/actuat metered dose [...] BREATH amitriptyline hydrochloride 10 mg oral tablet (20 sources) Tricyclic Antidepressant Start: End: take 1 tablet by mouth at bedtime amitriptyline (Elavil) 10 MG tablet Indications: Migraine with aura and without status migrainosus, not intractable , Primary insomnia Take 1 tablet (10 mg) by mouth at bedtime 90 tablet 09/25/2024 12/24/2024 Active atorvastatin 20 mg oral tablet (20 sources) HMG-CoA Reductase Inhibitor Start: End: take 1 tablet by mouth at bedtime atorvastatin (Lipitor) 20 MG tablet Indications: Mixed hyperlipidemia Take 1 tablet (20 mg) by mouth at bedtime 90 tablet 09/26/2024 12/25/2024 Active Start: 12-19-2023 take 1 tablet by isaak at bedtime atorvastatin (Lipitor) 20 MG tablet [...] hours if needed for muscle spasms Per [facility] pain mgmt 06/04/2024 Discontinued (Therapy completed) benzonatate 200 mg oral capsule (2 sources) Non-narcotic Antitussive Start: 07-16-2024 End: 07-23-2024 take 1 capsule by mouth three times daily as needed for cough benzonatate (Tessalon) 200 MG capsule Indications: URI with cough and congestion Take 1 capsule (200 mg) by mouth 3 (three) times a day as needed for cough for up to 7 days Do not crush or chew. 21 capsule 07/16/2024 07/23/2024 Active betamethasone 0.5 mg/ml / clotrimazole 10 mg/ml topical cream (18 sources) Azole Antifungal, Corticosteroid Start: 09-01-2024 clotrimazole-beta methasone (Lotrisone) cream APPLY TO AFFECTED AREA TWICE A DAY FOR 28 DAYS 09/01/2024 Active Start: 11-19-2021 clotrimazole-b etamethasone (LOTRISONE) cream APPLY ONE APPLICATION TO AFFECTED AREA TWICE A DAY TO FOOT FOR 3 WEEKS 0 11/19/2021 Active Comment on above: APPLY ONE APPLICATIO N TO AFFECTED AREA TWICE A DAY TO FOOT FOR 3 WEEKS ciclopirox 80 mg/ml topical solution (20 sources) Start: 09-01-2024 ciclopirox (Penlac) 8 % solution APPLY TOPICALLY AT BEDTIME 09/01/2024 Active Start: 02-22-2024 End: 03-28-2024 ciclopirox (Penlac) 8 % solu tion Indications: Onychomycosis Apply topically at bedtime 6.6 mL 11 02/23/2024 03/26/2024 Active Start: 10-22-2021 Ciclopirox (LO PROX) 8 % solution Apply jublia TO affected toenails ONCE daily FOR 48 WEEKS 0 10/22/2021 Active Comment on above: Apply jublia TO affe cted toenails ONCE daily FOR 48 WEEKS doxycycline hyclate 100 mg oral tablet (1 source) Tetracycline-class Drug Start: End: doxycycline (Vibra-Tabs) 100 MG tablet Indications: Acute non-recurrent sinusitis of other sinus Take 1 tablet (100 mg) by mouth in the morning and 1 tablet (100 mg) before bedtime. Do all this for 10 days. Take with a full glass of water and do not lie down for at least 30 minutes after.. 20 tablet 07/18/2024 07/28/2024 Active DULoxetine 60 mg delayed release oral capsule (20 sources) Serotonin and Norepinephrine Reuptake Inhibitor Start: End: take 1 capsule by mouth once daily DULoxetine (Cymbalta) [address] capsule Indications: Anxiety and depression Take 1 capsule (60 mg) by mouth Daily 90 capsule 11/24/2024 02/22/2025 Active hydrocortisone 0.025 mg/mg topical ointment (20 sources) Corticosteroid Start: hydrocortisone 2.5 % ointment Indications: Allergic contact dermatitis due to cosmetics Apply topically 2 (two) times a day 20 g 11 02/22/2024 Active levothyroxine sodium 0.025 mg oral tablet (20 sources) l-Thyroxine Start: levothyroxine (Synthroid) 25 MCG tablet Indications: Hypothyroidism (acquired) Take 1 pill daily Tuesday-Tuesday, in addition to 175mcg dose 20 tablet 1 10/18/2024 Active Start: 09-17-2024 End: 10-11-2024 levothyroxine (Synthroid) 25 MCG tablet Indications: Hypothyroidism (acquired) (CMS/HCC) Take 1 pill daily Tuesday-Tuesday, in addition to 175mcg dose 20 tablet 1 09/17/2024 10/11/2024 Discontinued (Reorder) Start: 07-02-2024 End: 09-30-2024 take 1 tablet by mouth five times daily levothyroxine (Synthroid) 25 MCG tablet Indications: Hypothyroidism (acquired) (CMS/HCC) Take 1 tablet (25 mcg) by mouth 5 (five) times a day Take 1 pill daily Tuesday-Tuesday, in addition to 175mcg dose 60 tablet 1 07/02/2024 09/30/2024 Active Start: 05-11-2024 End: 09-02-2024 take 1 tablet by mouth three times weekly levothyroxine (Synthroid) 25 MCG tablet Indications: Hypothyroidism (acquired) (CMS/HCC) Take 1 tablet (25 mcg) by mouth 3 (three) times a week Take 1 pill every Tuesday, Tuesday, and Tuesday, and also take 175mcg dose EVERY DAY 36 tablet 1 06/04/2024 07/02/2024 Discontinued (Reorder) Start: 03-07-2024 End: 12-16-2024 take 1 tablet by mouth in the morning levothyroxine (Synthroid, Levoxyl) 175 MCG tablet Indications: Hypothyroidism (acquired) Take 1 tablet (175 mcg) by mouth in the morning. Take before meals. 175mcg pill every day, and then on Tuesday - Tuesday take an additional 25mcg pill (separate pill). 30 tablet 1 09/17/2024 Active Start: 03-05-2024 End: 04-04-2024 take 1 [...] above: Take 112 mcg by mout h. meclizine hydrochloride 25 mg oral tablet (3 sources) Antiemetic Start: 12-20-19 End: 12-30-19 take 1 tablet by mouth three times daily as needed for dizziness meclizine (Antivert) 25 MG tablet Indications: Vertigo Take 1 tablet (25 mg) by mouth 3 (three) times a day as needed for dizziness for up to 10 days 30 tablet 12/19/2024 12/19/2024 Discontinued (Reorder) meloxicam 15 mg oral tablet (20 sources) Nonsteroidal Anti-inflammatory Drug Start: 04-17-20 End: 09-03-19 meloxicam (Mobic) 15 MG tablet Indications: Spinal [...] Take 15 mg by mouth once daily. Nystatin (3 sources) Polyene Antifungal Start: 09-18-2024 End: 10-03-2024 Nystatin powder Indications: Yeast dermatitis 1 Application in the morning and 1 Application before bedtime. Do all this for 15 days. Apply to affected areas. 60 each 1 09/18/2024 10/03/2024 Active Start: 04-12-2024 End: 04-26-2024 nystatin (Mycostatin) [id number] UNIT/ML suspension Indications: Oral thrush Take 5 [...] capsule (20 sources) Proton Pump Inhibitor Start: 02-13-2024 End: 11-17-2024 take 1 capsule by mouth in the morning omeprazole (PriLOSEC) [address] capsule Indications: Gastroesophageal reflux disease, unspecified whether esophagitis present Take 1 capsule (40 mg) by mouth in the morning and 1 capsule (40 mg) in the evening. Take before meals. 60 capsule 1 10/18/2024 Active omeprazole (PRIL OSEC) 40 mg capsule [...] at bedtime. 30 tablet 2 12/23/2021 03/23/2022 take 1 tablet by isaak th every six hours as needed for muscle spasms tiZANidine (Zanaflex) 4 MG tablet TAKE 1 TABLET (4 MG) BY MOUTH EVERY 6 HOURS NEEDED FOR MUSCLE SPASM Active Comment on above: TAKE 1 TABLET BY ISAAK TH AT BEDTIME, MAY CAUSE DROWSINESS Take 1 tablet by isaak th daily at bedtime. traZODone hydrochloride 50 mg oral tablet (19 sources) Serotonin Reuptake Inhibitor Start: End: 4 take 2 tablets by mouth [...] Drug Class(es) Dates Sig (Normalized) Sig (Original) cetirizine hydrochloride 10 mg oral tablet (12 [...] after fusion or arthrodesis] Onset: 05-30-2022 Episodic Conditions associated with dizziness or vertigo (5 sources) Vertigo; Translations: [Dizziness and giddiness] Onset: 12-19-2024 12-19-2024 Episodic Diabetes mellitus without complication (1 source) [...] disorder, recurrent, moderate] Onset: 09-05-2023 03-08-2024 Chronic Other aftercare (1 source) Other jail (current) drug therapy; Translations: [OTH INFECTIOUS DISEASE TECHNICIAN CURRENT DRUG THERAPY] Onset: 05-31-2022 Episodic Other female genital disorders (20 sources) Simple endometrial glandular hyperplasia without atypia; Translations: [Benign endometrial hyperplasia] Onset: 09-05-2023 09-05-2023 Chronic Other nervous system disorders (20 sources) Cervical myelopathy; Translations: [Disease of spinal cord, unspecified] Onset: 11-10-2018 09-05-2023 Chronic Other nutritional; endocrine; and metabolic disorders (7 sources) Obesity caused by energy imbalance; Translations: [Morbid (severe) obesity due to excess calories] Onset: 09-20-2024 09-20-2024 Chronic Other nutritional; endocrine; and metabolic disorders (7 sources) Body mass index 40+ - severely obese; Translations: [Body mass index (BMI) 40.0-44.9, adult] Onset: 09-20-2024 09-20-2024 Chronic Other upper respiratory disease (20 sources) [...] dependence, cigarettes, uncomplicated; Translations: [Smoker] Onset: 05-31-2022 Resolved: 09-20-2024 03-28-2024 Chronic Thyroid disorders (20 sources) Hypothyroidism, [...] sources) Daytime somnolence; Translations: [Somnolence] Onset: 09-05-2023 Resolved: 09-20-2024 09-05-2023 Episodic Genitourinary symptoms and ill-defined conditions (20 sources) Urinary symptoms ; Translations: [Unspecified symptoms and signs involving the genitourinary system] Onset: 09-19-2023 Resolved: 09-20-2024 09-19-2023 Episodic Malaise and fatigue (20 sources) Fatigue; Translations: [Other fatigue] Onset: 12-12-2023 12-12-2023 Episodic Mycoses (20 sources) Candidiasis of skin; Translations: [Candidiasis of skin and nail] Onset: 05-24-2023 Resolved: 09-20-2024 05-24-2023 Episodic Nonmalignant breast conditions (20 sources) Lump in left breast; Translations: [Unspecified lump in the left breast, unspecified quadrant] Onset: 09-05-2023 09-05-2023 Episodic Other circulatory disease (20 sources) Transient hypertension; Translations: [Elevated blood-pressure reading, without diagnosis of hypertension] Onset: 03-26-2024 Resolved: 09-20-2024 03-28-2024 Episodic Other connective tissue disease (12 sources) History of cervical spine fusion; Translations: [Arthrodesis status] Onset: 12-14-2021 Episodic Other connective tissue disease (4 sources) Pain in left foot; Translations: [PAIN IN LEFT FOOT] Onset: 11-19-2021 Episodic Other connective tissue disease (20 sources) Radial styloid tenosynovitis; Translations: [Radial styloid tenosynovitis [de Quervain]] Onset: 09-05-2023 Resolved: 09-05-2023 09-05-2023 Episodic Other connective tissue disease (19 sources) Spasm; Translations: [Other muscle spasm] Onset: 05-28-2024 05-28-2024 Episodic Other lower respiratory disease (3 sources) Shortness of breath; Translations: [SHORTNESS OF BREATH] Onset: 01-14-2022 Episodic Other nutritional; endocrine; and metabolic disorders (20 sources) Morbid obesity; Translations: [Morbid (severe) obesity due to excess calories] Onset: 09-05-2023 Resolved: 09-20-2024 03-28-2024 Chronic Other screening for suspected conditions (not mental disorders or infectious disease) (20 sources) Patient encounter status; Translations: [Encounter for screening mammogram for malignant neoplasm of breast] Onset: 01-05-2024 01-05-2024 Episodic Other skin disorders (2 sources) Seborrheic keratosis; Translations: [Other seborrheic keratosis] 02-22-2024 Episodic Other upper respiratory infections (20 sources) Acute maxillary sinusitis; Translations: [Acute maxillary sinusitis, unspecified] Onset: 05-24-2023 Resolved: 09-20-2024 09-05-2023 Episodic Residual codes; unclassified (20 sources) [...] Name Value Interpretation Reference Range Facility 36on 03-15-2025 36 Talked with patient about zanaflex, patient is waiting to make follow up appt, new insurance will be active soon [facility] Refillon 03-14-2025 Refill [id number] Thakkar 1970 F Date Provider Department Center 03/14/2025 LAINE CRANE [facility] Family History Family history unknown: Yes Reason for Visit and Comments: Med Refill [[id number]] [facility] Patient Messageon 01-23-2025 Patient Message [id number] Thakkar 1970 F Date Provider Department Center 01/23/2025 LAINE CRAEN [facility] Family History Family history unknown: Yes [facility] 11-06-2024 Refill [id number] Thakkar 1970 F Date Provider Department Center 11/06/2024 LAINE CRANE MP [facility] Family History Family history unknown: Yes Reason for Visit and Comments: Med Refill [[id number]] [facility] 10-08-2024 Refill [id number] Nato Short 1970 F Date Provider Department Center 10/08/2024 LAINE CRANE MP [facility] Family History Family history unknown: Yes Reason for Visit and Comments: Med Refill [[id number]] [facility] 08-17-2024 Refill [id number] Nato Short 1970 F Date Provider Department Center 08/17/2024 Chucky[facility]INE [facility]CO [facility] Family History Family history unknown: Yes Reason for Visit and Comments: Med Refill [[id number]] [facility] 36on 07-17-2024 36 Approving, but needs appt for additional refills. [facility] ALL CBC WITH AUTO DIFFon BASOPHILS ABSOLUTE AUTO 0.1 [facility] Basophils/100 WBC (Bld) 0.6 % 0.2 - 2.0 % [facility] Eosinophils/100 WBC (Bld) 1 % 0.9 - 7.0 % [facility] Erythrocyte distribution width (RBC) [Ratio] 14 % 11.0 - 15.0 % [facility] Hematocrit (Bld) [Volume fraction] 45.9 % 36.0 - 48.0 % [facility] Hemoglobin (Bld) [Mass/Vol] 15.3 g/dL 12.0 - 16.0 g/dL [facility] IMMATURE GRANULOCYTES ABS AUTO 0.03 [facility] Immature granulocytes/100 WBC (Bld) 0.4 % 0.0 - 0.5 % [facility] LYMPHOCYTES ABSOLUTE AUTO 2.2 [facility] Lymphocytes/100 WBC (Bld) 28.1 % 20.5 - 60.0 % [facility] MCH (RBC) [Entitic mass] 31 pg 26.7 - 34.0 pg [facility] MCHC (RBC) [Mass/Vol] 33.3 g/dL 29.9 - 35.2 g/dL [facility] MCV (RBC) [Entitic vol] 93.1 fL 81.0 - 99.0 fL [facility] MONOCYTES ABSOLUTE AUTO 0.5 [facility] Monocytes/100 WBC (Bld) 6.5 % 1.7 - 12.0 % [facility] NEUTROPHILS ABSOLUTE AUTO 5.1 [facility] Neutrophils/100 WBC (Bld) 63.4 % 43.0 - 75.0 % [facility] Platelet mean volume (Bld) [Entitic vol] 9.9 fL 9.5 - 13.[address] [facility] are TB EO # 0.1 [facility] TB PLT 365 [facility] TB RBC 4.93 [facility] TB WBC 8 [facility] 36on 06-14-2024 36 Approving, but needs appt for additional refills. Normal [facility] 36on 06-12-2024 36 Approving, but needs appt for additional refills. Normal [facility] ALL THYROID STIM HORMONEon 07-10-2023 Interpretation and review of laboratory results Abnormal [facility] TSH Qn 7.43 m[IU]/L High [facility] are [facility] ALL THYROXINE (T4) FREEon Free T4 [Mass/Vol] 1.02 ng/dL 0.76 - 1. 46 ng/dL [facility] 36on 05-08-2024 36 I [...] I updated JOSE Fernández with this information. [facility] Orders Onlyon 04-16-2024 Orders Only [id number] Nato Short 1970 F Date Provider Department Center 04/16/[id number] VAZQUEZ [facility] SURG [place] Family History Family history unknown: Yes [facility] 36on 04-13-2024 36 Patient is scheduled for neck surgery and is having increasing pain radiating down and she would like to know what she should do since dr orozco is booked until her surgery, [facility] 36on 04-09-2024 36 Approving, but needs appt for additional refills. Normal [facility] ALL T3 FREEon 03-07-2024 Free T3 [Mass/Vol] 2.08 pg/mL Low 2.18 - 3. 98 pg/mL [facility] ALL THYROID STIM HORMONEon 0 03-07-2024 TSH Qn 14.169 m[IU]/L [facility] No Panel Informationon 03-07 Interpretation and review of laboratory results Abnormal [facility] [employer] [facility] CERVICAL SPINE WO CONTRAS [...] Maddie Simpson MD 02/13/23 Final result Normal [facility] 06-27 SARS-CoV-2 (COVID-19) RNA RENÉ+probe Ql (Unsp spec) Not detected Normal NOT DETECTED [facility] Comment on above: Result Comment: This test is not yet approved or cleared by the [place] FDA. When there are no FDA-approved or cleared tests available, and other criteria are met, FDA can make tests available under an emergency access mechanism called an Emergency Use Authorization (EUA). The EUA for this test is supported by the [place] of Health and Human Service's (HHS's) declaration [...] consistent with SARS-CoV-2. Performed By: #### [facility] #### [facility] [address] [place] [address] Dr. Radha Suarez INFLUENZA A AND B AGon 07-15 INFLUANEGH SEE BELOW Normal [facility] Comment on above: Result Comment: Nega tive for Flu A protein angiten. Infection due to Flu A cannot be ruled out. Flu A angiten in the sample may be below the detection limit of the test. Performed By: #### C VDTBH #### [facility] [address] [place] [address] Dr. Radha Suarez [facility] SEE BELOW Normal [facility] Comment on above: Result Comment: Nega tive for Flu B protein antigen. Infection due to Flu B cannot be ruled out. Flu B antigen in the sample may be below the detection limit of the test. Performed By: #### C VDTBH #### [facility] [address] [place] [address] Dr. Radha Suarez INFLUENZA A AG Negative Normal NEGATIVE SEE COMMENT [facility] Comment on above: Performed By: #### C VDTBH #### [facility] [address] [place] [address] Dr. Radha Suarez INFLUENZA B AG Negative Normal NEGATIVE SEE COMMENT [facility] Comment on above: Performed By: #### C VDTBH #### [facility] [address] [place] [address] Dr. Radha Suarez CULTURE WOUNDon 06-01-2022 CULTURE WOUND Isolate 1 Pseudomonas aeruginosa Light growth of ORGANISM 1 Pseudomonas aeruginosa ANTIBIOTIC M.I.C RX STATUS Piperacillin/Tazobac iglesias <=4 S F Ceftazidime <=1 S F Imipenem 1 S F Amikacin 4 S F Gentamicin <=1 S F Tobramycin <=1 S F Ciprofloxacin <=0.25 S F Levofloxacin <=0.12 S F Normal [facility] Comment on above: Performed By: #### C VDTBH #### [facility] [address] [place] [address] Dr. Radha Suarez CBC AUTO DIFFon 04-16-2022 BASO # 0.1 103/ul Normal 0.0-0.1 [facility] Comment on above: Performed By: #### C BC #### [facility] [address] [place] [address] Dr. Radha Suarez Basophils/100 WBC (Bld) 0.8 % Normal 0.2-2.0 [facility] Comment on above: Performed By: #### C BC #### [facility] [address] [place] [address] Dr. Radha Suarez EO # 0.1 103/ul Normal 0.0-0.7 [facility] Comment on above: Performed By: #### C BC #### [facility] [address] [place] [address] Dr. Radha Suarez Eosinophils/100 WBC (Bld) 0.8 % Critically low 0.9-7.0 [facility] Comment on above: Performed By: #### C BC #### [facility] [address] [place] [address] Dr. Radha Suarez Erythrocyte distribution width (RBC) [Ratio] 14.3 % Normal 11.0-15.0 [facility] Comment on above: Performed By: #### C BC #### [facility] [address] [place] [address] Dr. Radha Suarez Hematocrit (Bld) [Volume fraction] 44.4 % Normal 36.0-48.0 [facility] Comment on above: Performed By: #### C BC #### [facility] [address] [place] [address] Dr. Radha Suarez Hemoglobin (Bld) [Mass/Vol] 14.6 g/dL Normal 12.0-16.0 [facility] Comment on above: Performed By: #### C BC #### [facility] [address] [place] [address] Dr. Radha Suarez IG # 0.02 10e3/ul Normal 0.00-0.03 [facility] Comment on above: Performed By: #### C BC #### [facility] [address] [place] [address] Dr. Radha Suarez IG % 0.3 % Normal 0.0-0.5 [facility] Comment on above: Performed By: #### C BC #### [facility] [address] [place] [address] Dr. Radha Suarez LYMPH # 2.4 103/ul Normal 1.2-3.8 [facility] Comment on above: Performed By: #### C BC #### [facility] [address] [place] [address] Dr. Radha Suarez Lymphocytes/100 WBC (Bld) 31.6 % Normal 20.5-60.0 [facility] Comment on above: Performed By: #### C BC #### [facility] [address] [place] [address] Dr. Radha Suarez MANUAL DIFF REQ NO Normal [facility] Comment on above: Performed By: #### C BC #### [facility] [address] [place] [address] Dr. Radha Suarez MCH (RBC) [Entitic mass] 30.5 pg Normal 26.7-34.0 [facility] Comment on above: Performed By: #### C BC #### [facility] [address] [place] [address] Dr. Radha Suarez MCHC (RBC) [Mass/Vol] 32.9 g/dL Normal 29.9-35.2 [facility] Comment on above: Performed By: #### C BC #### [facility] [address] [place] [address] Dr. Radha Suarez MCV (RBC) [Entitic vol] 92.9 fL Normal 81.0-99.0 [facility] Comment on above: Performed By: #### C BC #### [facility] [address] [place] [address] Dr. Radha Suarez MONO # 0.6 103/ul Normal 0.3-0.8 [facility] Comment on above: Performed By: #### C BC #### [facility] [address] [place] [address] Dr. Radha Suarez Monocytes/100 WBC (Bld) 7.8 % Normal 1.7-12.0 [facility] Comment on above: Performed By: #### C BC #### [facility] [address] [place] [address] Dr. Radha Suarez NEUT # 4.5 103/ul Normal 1.4-6.5 [facility] Comment on above: Performed By: #### C BC #### [facility] [address] [place] [address] Dr. Radha Suarez Neutrophils/100 WBC (Bld) 58.7 % Normal 43.0-75.0 [facility] Comment on above: Performed By: #### C BC #### [facility] [address] [place] [address] Dr. Radha Suarez Platelet mean volume (Bld) [Entitic vol] 9.1 fL Critically low 9.5-13.5 [facility] Comment on above: Performed By: #### C BC #### [facility] [address] [place] [address] Dr. Radha Suarez PLT 346 103/ul Normal 150-450 [facility] Comment on above: Performed By: #### C BC #### [facility] [address] [place] [address] Dr. Radha Suarez RBC 4.78 106/ul Normal 4.20-5.40 [facility] Comment on above: Performed By: #### C BC #### [facility] [address] [place] [address] Dr. Radha Suarez WBC 7.6 103/ul Normal 4.0-11.0 [facility] Comment on above: Performed By: #### C BC #### [facility] [address] [place] [address] Dr. Radha Suarez FREE T3on 04-16-2022 FREE T3 2.50 pg/mlL Normal 2.18-3.98 [facility] Comment on above: Performed By: #### C BC #### [facility] [address] [place] [address] Dr. Radha Suarez FREE T4on 04-16-2022 Free T4 [Mass/Vol] 1.33 ng/dL Normal 0.76-1.46 [facility] Comment on above: Performed By: #### F T4 #### [facility] [address] [place] [address] Dr. Radha Suarez PROF CHEM 8 (BAS METB)on Anion gap [Moles/Vol] 8.7 mmol/L Normal [facility] Comment on above: Performed By: #### C BC #### [facility] [address] [address] [address] Radha Suarez Calcium [Mass/Vol] 9.4 mg/dL Normal 8.5-10.1 [facility] Comment on above: Performed By: #### C BC #### [facility] [address] [place] [address] Dr. Radha Suarez Chloride [Moles/Vol] 101 mmol/L Normal 98-107 [facility] Comment on above: Performed By: #### C BC #### [facility] [address] [place] [address] Dr. Radha Suarez CO2 [Moles/Vol] 30.5 mmol/L Normal 21.0-32.0 [facility] Comment on above: Performed By: #### C BC #### [facility] [address] [place] [address] Dr. Radha Suarez Creatinine [Mass/Vol] 0.72 mg/dL Normal 0.55-1.02 [facility] Comment on above: Performed By: #### C BC #### [facility] [address] [place] [address] Dr. Radha Suarez EGFR-AF BARBADIAN >60 Normal >=60 [facility] Comment on above: Performed By: #### C BC #### [facility] [address] [place] [address] Dr. Radha Suarez EGFR-NON AF BARBADIAN >60 Normal >=60 [facility] Comment on above: Performed By: #### C BC #### [facility] [address] [place] [address] Dr. Radha Suarez Glucose [Mass/Vol] 99 mg/dL Normal 74-106 [facility] Comment on above: Performed By: #### C BC #### [facility] [address] [place] [address] Dr. Radha Suarez Potassium [Moles/Vol] 4.2 mmol/L Normal 3.5-5.1 [facility] Comment on above: Performed By: #### C BC #### [facility] [address] [place] [address] Dr. Radha Suarez Sodium [Moles/Vol] 136 mmol/L Normal 136-145 [facility] Comment on above: Performed By: #### C BC #### [facility] [address] [place] [address] Dr. Radha Suarez Urea nitrogen [Mass/Vol] 12.0 mg/dL Normal 7.0-18.0 [facility] Comment on above: Performed By: #### C BC #### [facility] [address] [place] [address] Dr. Radha Suarez Urea nitrogen/Creatinine [Mass ratio] 16.7 mg/mg Normal [facility] Comment on above: Performed By: #### C BC #### [facility] [address] [place] [address] Dr. Radha Suarez PROTIMEon 04-16-2022 INR Coag (PPP) [Relative time] 0.98 {INR} Normal [facility] Comment on above: Performed By: #### P TT, PT #### [facility] [address] [place] [address] Dr. Radha Suarez INR GUIDELINES SEE BELOW Normal [facility] Comment on above: Result Comment: DEVI RED INR: 2.0 - 3.0 CONDITIONS NOT LISTED BELOW 2.5 - 3.5 FOR PROSTHETIC HEART VALVE REPLACEMENT 2.5 - 3.5 RECURRENT THROMBOSIS Performed By: #### P TT, PT #### [facility] [address] [place] [address] Dr. Radha Suarez PT Coag (PPP) [Time] 10.6 s Normal 9.0-11.6 [facility] Comment on above: Performed By: #### P TT, PT #### [facility] [address] [place] [address] Dr. Radha Suarez PTTon 04-16-2022 aPTT Coag (Bld) [Time] 27.9 s Normal 22.3-36.2 [facility] Comment on above: Performed By: #### P TT, PT #### [facility] [address] [place] [address] Dr. Radha Suarez TSHon 04-16-2022 TSH 0.206 uIU/mL Critically low 0.358-3.740 [facility] Comment on above: Performed By: #### C BC #### [facility] [address] [place] [address] Dr. Radha Suarez FREE T4on 03-08-2022 Free T4 [Mass/Vol] 1.59 ng/dL Critically high 0.76-1.46 T [facility] Comment on above: Performed By: #### C VDTBH #### [facility] [address] [place] [address] Dr. Radha Suarez TSHon 03-08-2022 TSH 0.107 uIU/mL Critically low 0.358-3.740 [facility] Comment on above: Performed By: #### C VDTBH #### [facility] [address] [place] [address] Dr. Radha Suarez LUMBAR SPINE 4 OR 5 VWSon LUMBAR SPINE 4 OR 5 [facility] Department of Radiology [address] [place] [id number] Patient Name: NATO SHORT : 1970 Sex: F Age: Race: White Pt. Location: Patient Status: D Ordered Date: 03/03/2022 2:10:00 PM Completed Date: 03/03/2022 02:31 PM Requesting Provider: LAINE OROZCO Attending Provider: LAINE OROZCO Report Copy To: Signs & Symptoms: M54.50 Low back pain, unspecified I10 History: [place] Comments: Evaluate Exam: LUMBAR SPINE 4 OR [...] report. Electronically signed: Anjum Quevedo. Transcribed by: [email or web address], User Resident: ANJUM CLIFTON Electronically Signed by: ANJUM QUEVEDO @ 03/04/2022 09:13 AM I personally read this/these film(s) with this resident Normal [facility] Comment on above: Order Comment: Evalu ate CBC AUTO DIFFon 02-04-2022 BASO # 0.0 103/ul Normal 0.0-0.1 [facility] Comment on above: Performed By: #### C BC #### [facility] [address] [address] [address] Radha Suarez Basophils/100 WBC (Bld) 0.1 % Critically low 0.2-2.0 [facility] Comment on above: Performed By: #### C BC #### [facility] [address] [place], [place] [address] Dr. Radha Suarez EO # 0.0 103/ul Normal 0.0-0.7 [facility] Comment on above: Performed By: #### C BC #### [facility] [address] [address] [address] Radha Suarez Eosinophils/100 WBC (Bld) 0.1 % Critically low 0.9-7.0 [facility] Comment on above: Performed By: #### C BC #### [facility] [address] [place] [address] Dr. Radha Suarez Erythrocyte distribution width (RBC) [Ratio] 14.4 % Normal 11.0-15.0 [facility] Comment on above: Performed By: #### C BC #### [facility] [address] [place] [address] Dr. Radha Suarez Hematocrit (Bld) [Volume fraction] 41.1 % Normal 36.0-48.0 [facility] Comment on above: Performed By: #### C BC #### [facility] [address] [place] [address] Dr. Radha Suarez Hemoglobin (Bld) [Mass/Vol] 13.3 g/dL Normal 12.0-16.0 [facility] Comment on above: Performed By: #### C BC #### [facility] [address] [place] [address] Dr. Radha Suarez IG # 0.09 10e3/ul Critically high 0.00-0.03 [facility] Comment on above: Performed By: #### C BC #### [facility] [address] [place] [address] Dr. Radha Suarez IG % 0.6 % Critically high 0.0-0.5 [facility] Comment on above: Performed By: #### C BC #### [facility] [address] [place] [address] Dr. Radha Suarez LYMPH # 1.1 103/ul Critically low 1.2-3.8 [facility] Comment on above: Performed By: #### C BC #### [facility] [address] [place] [address] Dr. Radha Suarez Lymphocytes/100 WBC (Bld) 7.6 % Critically low 20.5-60.0 [facility] Comment on above: Performed By: #### C BC #### [facility] [address] [place] [address] Dr. Radha Suarez MANUAL DIFF REQ NO Normal [facility] Comment on above: Performed By: #### C BC #### [facility] [address] [address] [address] Radha Suarez MCH (RBC) [Entitic mass] 30.5 pg Normal 26.7-34.0 [facility] Comment on above: Performed By: #### C BC #### [facility] [address] [place] [address] Dr. Radha Suarez MCHC (RBC) [Mass/Vol] 32.4 g/dL Normal 29.9-35.2 [facility] Comment on above: Performed By: #### C BC #### [facility] [address] [place] [address] Dr. Radha Suarez MCV (RBC) [Entitic vol] 94.3 fL Normal 81.0-99.0 [facility] Comment on above: Performed By: #### C BC #### [facility] [address] [place] [address] Dr. Radha Suarez MONO # 0.4 103/ul Normal 0.3-0.8 [facility] Comment on above: Performed By: #### C BC #### [facility] [address] [place] [address] Dr. Radha Suarez Monocytes/100 WBC (Bld) 2.4 % Normal 1.7-12.0 [facility] Comment on above: Performed By: #### C BC #### [facility] [address] [place] [address] Dr. Radha Suarez NEUT # 13.2 103/ul Critically high 1.4-6.5 [facility] Comment on above: Performed By: #### C BC #### [facility] [address] [place] [address] Dr. Radha Suarez Neutrophils/100 WBC (Bld) 89.2 % Critically high 43.0-75.0 [facility] Comment on above: Performed By: #### C BC #### [facility] [address] [address] [address] Radha Suarez Platelet mean volume (Bld) [Entitic vol] 9.3 fL Critically low 9.5-13.5 [facility] Comment on above: Performed By: #### C BC #### [facility] [address] [address] [address] Radha Suarez PLT 358 103/ul Normal 150-450 [facility] Comment on above: Performed By: #### C BC #### [facility] [address] [address] [address] Radha Suarez RBC 4.36 106/ul Normal 4.20-5.40 [facility] Comment on above: Performed By: #### C BC #### [facility] [address] [place] [address] Dr. Radha Suarez WBC 14.8 103/ul Critically high 4.0-11.0 [facility] Comment on above: Performed By: #### C BC #### [facility] [address] [address] [address] Radha Suarez PROF CHEM 8 (BAS METB)on Anion gap [Moles/Vol] 10.7 mmol/L Normal [facility] Comment on above: Performed By: #### B MP #### [facility] [address] [place] [address] Dr. Radha Suarez Calcium [Mass/Vol] 8.6 mg/dL Normal 8.5-10.1 [facility] Comment on above: Performed By: #### B MP #### [facility] [address] [place] [address] Dr. Radha Suarez Chloride [Moles/Vol] 103 mmol/L Normal 98-107 [facility] Comment on above: Performed By: #### B MP #### [facility] [address] [place] [address] Dr. Radha Suarez CO2 [Moles/Vol] 27.2 mmol/L Normal 21.0-32.0 [facility] Comment on above: Performed By: #### B MP #### [facility] [address] [address] [address] Radha Suarez Creatinine [Mass/Vol] 0.82 mg/dL Normal 0.55-1.02 [facility] Comment on above: Performed By: #### B MP #### [facility] [address] [address] [address] Radha Suarez EGFR-AF BARBADIAN >60 Normal >=60 [facility] Comment on above: Performed By: #### B MP #### [facility] [address] [address] [address] Radha Suarez EGFR-NON AF BARBADIAN >60 Normal >=60 [facility] Comment on above: Performed By: #### B MP #### [facility] [address] [address] [address] Radha Suarez Glucose [Mass/Vol] 158 mg/dL Critically high 74-106 T [facility] Comment on above: Performed By: #### B MP #### [facility] [address] [address] [address] Radha Suarez Potassium [Moles/Vol] 3.9 mmol/L Normal 3.5-5.1 [facility] Comment on above: Performed By: #### B MP #### [facility] [address] [address] [address] Radha Suarez Sodium [Moles/Vol] 137 mmol/L Normal 136-145 [facility] Comment on above: Performed By: #### B MP #### [facility] [address] [address] [address] Radha Suarez Urea nitrogen [Mass/Vol] 16.0 mg/dL Normal 7.0-18.0 [facility] Comment on above: Performed By: #### B MP #### [facility] [address] [address] [address] Radha Suarez Urea nitrogen/Creatinine [Mass ratio] 19.5 mg/mg Normal [facility] Comment on above: Performed By: #### B MP #### [facility] [address] [address] [address] Radha Suarez CBC AUTO DIFFon 02-03-2022 BASO # 0.0 103/ul Normal 0.0-0.1 [facility] Comment on above: Performed By: #### C VDTBH #### [facility] [address] [place] [address] Dr. Radha Suarez Basophils/100 WBC (Bld) 0.3 % Normal 0.2-2.0 [facility] Comment on above: Performed By: #### C VDTBH #### [facility] [address] [place] [address] Dr. Radha Suarez EO # 0.0 103/ul Normal 0.0-0.7 [facility] Comment on above: Performed By: #### C VDTBH #### [facility] [address] [place] [address] Dr. Radha Suarez Eosinophils/100 WBC (Bld) 0.0 % Critically low 0.9-7.0 [facility] Comment on above: Performed By: #### C VDTBH #### [facility] [address] [place] [address] Dr. Radha Suarez Erythrocyte distribution width (RBC) [Ratio] 14.2 % Normal 11.0-15.0 [facility] Comment on above: Performed By: #### C VDTBH #### [facility] [address] [place] [address] Dr. Radha Suarez Hematocrit (Bld) [Volume fraction] 43.2 % Normal 36.0-48.0 [facility] Comment on above: Performed By: #### C VDTBH #### [facility] [address] [place] [address] Dr. Radha Suarez Hemoglobin (Bld) [Mass/Vol] 13.8 g/dL Normal 12.0-16.0 [facility] Comment on above: Performed By: #### C VDTBH #### [facility] [address] [place] [address] Dr. Radha Suarez IG # 0.02 10e3/ul Normal 0.00-0.03 [facility] Comment on above: Performed By: #### C VDTBH #### [facility] [address] [address] [address] Radha Suarez IG % 0.3 % Normal 0.0-0.5 [facility] Comment on above: Performed By: #### C VDTBH #### [facility] [address] [address] [address] Radha Suarez LYMPH # 0.7 103/ul Critically low 1.2-3.8 [facility] Comment on above: Performed By: #### C VDTBH #### [facility] [address] [place] [address] Dr. Radha Suarez Lymphocytes/100 WBC (Bld) 9.8 % Critically low 20.5-60.0 [facility] Comment on above: Performed By: #### C VDTBH #### [facility] [address] [place] [address] Dr. Radha Suarez MANUAL DIFF REQ NO Normal [facility] Comment on above: Performed By: #### C VDTBH #### [facility] [address] [place] [address] Dr. Radha Suarez MCH (RBC) [Entitic mass] 29.8 pg Normal 26.7-34.0 [facility] Comment on above: Performed By: #### C VDTBH #### [facility] [address] [place] [address] Dr. Radha Suarez MCHC (RBC) [Mass/Vol] 31.9 g/dL Normal 29.9-35.2 [facility] Comment on above: Performed By: #### C VDTBH #### [facility] [address] [place] [address] Dr. Radha Suarez MCV (RBC) [Entitic vol] 93.3 fL Normal 81.0-99.0 [facility] Comment on above: Performed By: #### C VDTBH #### [facility] [address] [place] [address] Dr. Radha Suarez MONO # 0.1 103/ul Critically low 0.3-0.8 [facility] Comment on above: Performed By: #### C VDTBH #### [facility] [address] [address] [address] Radha Suarez Monocytes/100 WBC (Bld) 0.8 % Critically low 1.7-12.0 [facility] Comment on above: Performed By: #### C VDTBH #### [facility] [address] [place] [address] Dr. Radha Suarez NEUT # 6.6 103/ul Critically high 1.4-6.5 [facility] Comment on above: Performed By: #### C VDTBH #### [facility] [address] [place] [address] Dr. Radha Suarez Neutrophils/100 WBC (Bld) 88.8 % Critically high 43.0-75.0 [facility] Comment on above: Performed By: #### C VDTBH #### [facility] [address] [place] [address] Dr. Radha Suarez Platelet mean volume (Bld) [Entitic vol] 9.2 fL Critically low 9.5-13.5 [facility] Comment on above: Performed By: #### C VDTBH #### [facility] [address] [place] [address] Dr. Radha Suarez PLT 368 103/ul Normal 150-450 [facility] Comment on above: Performed By: #### C VDTBH #### [facility] [address] [place] [address] Dr. Radha Suarez RBC 4.63 106/ul Normal 4.20-5.40 [facility] Comment on above: Performed By: #### C VDTBH #### [facility] [address] [place] [address] Dr. Radha Suarez WBC 7.4 103/ul Normal 4.0-11.0 [facility] Comment on above: Performed By: #### C VDTBH #### [facility] [address] [place] [address] Dr. Radha Suarez BASO # 0.0 103/ul Normal 0.0-0.1 [facility] Comment on above: Performed By: #### C BC #### [facility] [address] [address] [address] Radha Suarez Basophils/100 WBC (Bld) 0.2 % Normal 0.2-2.0 [facility] Comment on above: Performed By: #### C BC #### [facility] [address] [address] [address] Radha Suarez EO # 0.0 103/ul Normal 0.0-0.7 [facility] Comment on above: Performed By: #### C BC #### [facility] [address] [address] [address] Radha Suarez Eosinophils/100 WBC (Bld) 0.2 % Critically low 0.9-7.0 [facility] Comment on above: Performed By: #### C BC #### [facility] [address] [place] [address] Dr. Radha Suarez Erythrocyte distribution width (RBC) [Ratio] 14.3 % Normal 11.0-15.0 [facility] Comment on above: Performed By: #### C BC #### [facility] [address] [address] [address] Radha Suarez Hematocrit (Bld) [Volume fraction] 46.6 % Normal 36.0-48.0 [facility] Comment on above: Performed By: #### C BC #### [facility] [address] [address] [address] Radha Suarez Hemoglobin (Bld) [Mass/Vol] 15.5 g/dL Normal 12.0-16.0 [facility] Comment on above: Performed By: #### C BC #### [facility] [address] [address] [address] Radha Suarez IG # 0.06 10e3/ul Critically high 0.00-0.03 [facility] Comment on above: Performed By: #### C BC #### [facility] [address] [address] [address] Radah Suarez IG % 0.5 % Normal 0.0-0.5 [facility] Comment on above: Performed By: #### C BC #### [facility] [address] [address] [address] Radha Suarez LYMPH # 0.9 103/ul Critically low 1.2-3.8 [facility] Comment on above: Performed By: #### C BC #### [facility] [address] [place] [address] Dr. Radha Suarez Lymphocytes/100 WBC (Bld) 7.2 % Critically low 20.5-60.0 [facility] Comment on above: Performed By: #### C BC #### [facility] [address] [place] [address] Dr. Radha Suarez MANUAL DIFF REQ NO Normal [facility] Comment on above: Performed By: #### C BC #### [facility] [address] [place] [address] Dr. Radha Suarez MCH (RBC) [Entitic mass] 30.7 pg Normal 26.7-34.0 [facility] Comment on above: Performed By: #### C BC #### [facility] [address] [place] [address] Dr. Radha Suarez MCHC (RBC) [Mass/Vol] 33.3 g/dL Normal 29.9-35.2 [facility] Comment on above: Performed By: #### C BC #### [facility] [address] [place] [address] Dr. Radha Suarez MCV (RBC) [Entitic vol] 92.3 fL Normal 81.0-99.0 [facility] Comment on above: Performed By: #### C BC #### [facility] [address] [place] [address] Dr. Radha Suarez MONO # 0.1 103/ul Critically low 0.3-0.8 [facility] Comment on above: Performed By: #### C BC #### [facility] [address] [place] [address] Dr. Radha Suarez Monocytes/100 WBC (Bld) 0.7 % Critically low 1.7-12.0 [facility] Comment on above: Performed By: #### C BC #### [facility] [address] [place] [address] Dr. Radha Suarez NEUT # 11.7 103/ul Critically high 1.4-6.5 [facility] Comment on above: Performed By: #### C BC #### [facility] [address] [place] [address] Dr. Radha Suarez Neutrophils/100 WBC (Bld) 91.2 % Critically high 43.0-75.0 [facility] Comment on above: Performed By: #### C BC #### [facility] [address] [place] [address] Dr. Radha Suarez Platelet mean volume (Bld) [Entitic vol] 9.1 fL Critically low 9.5-13.5 [facility] Comment on above: Performed By: #### C BC #### [facility] [address] [place] [address] Dr. Radha Suraez PLT 394 103/ul Normal 150-450 [facility] Comment on above: Performed By: #### C BC #### [facility] [address] [place] [address] Dr. Radha Suarez RBC 5.05 106/ul Normal 4.20-5.40 [facility] Comment on above: Performed By: #### C BC #### [facility] [address] [place] [address] Dr. Radha Suarez WBC 12.8 103/ul Critically high 4.0-11.0 [facility] Comment on above: Performed By: #### C BC #### [facility] [address] [place] [address] LSPINE WO CONon [...] NAOMIE THEODORE Date: 2022-02-03 09:33 Normal [facility] PROF 14(COMP METB)on 02-03- 022 Albumin [Mass/Vol] 3.9 g/dL Normal 3.4-5.0 [facility] Comment on above: Performed By: #### C VDTB #### [facility] [address] [place] [address] Dr. Radha Suarez Albumin/Globulin [Mass ratio] 1.0 {ratio} Normal [facility] Comment on above: Performed By: #### C VDTB #### [facility] [address] [place] [address] Dr. Radha Suarez ALP [Catalytic activity/Vol] 117 U/L Critically high 46-116 [facility] Comment on above: Performed By: #### C VDTBH #### [facility] [address] [place] [address] Dr. Radha Suarez ALT [Catalytic activity/Vol] 42 U/L Normal 14-59 [facility] Comment on above: Performed By: #### C VDTBH #### [facility] [address] [place] [address] Dr. Radha Suarez Anion gap [Moles/Vol] 16.0 mmol/L Normal [facility] Comment on above: Performed By: #### C VDTBH #### [facility] [address] [place] [address] Dr. Radha Suarez AST [Catalytic activity/Vol] 25 U/L Normal 15-37 [facility] Comment on above: Performed By: #### C VDTBH #### [facility] [address] [place] [address] Dr. Radha Suarez Bilirubin [Mass/Vol] 0.2 mg/dL Normal 0.2-1.0 [facility] Comment on above: Performed By: #### C VDTBH #### [facility] [address] [place] [address] Dr. Radha Suarez Calcium [Mass/Vol] 9.6 mg/dL Normal 8.5-10.1 [facility] Comment on above: Performed By: #### C VDTBH #### [facility] [address] [place] [address] Dr. Radha Suarez Chloride [Moles/Vol] 104 mmol/L Normal 98-107 [facility] Comment on above: Performed By: #### C VDTBH #### [facility] [address] [place] [address] Dr. Radha Suarez CO2 [Moles/Vol] 26.0 mmol/L Normal 21.0-32.0 [facility] Comment on above: Performed By: #### C VDTBH #### [facility] [address] [place] [address] Dr. Radha Suarez Creatinine [Mass/Vol] 0.82 mg/dL Normal 0.55-1.02 [facility] Comment on above: Performed By: #### C VDTBH #### [facility] [address] [place] [address] Dr. Radha Suarez EGFR-AF BARBADIAN >60 Normal >=60 [facility] Comment on above: Performed By: #### C VDTBH #### [facility] [address] [place] [address] Dr. Radha Suarez EGFR-NON AF BARBADIAN >60 Normal >=60 [facility] Comment on above: Performed By: #### C VDTBH #### [facility] [address] [address] [address] Radha Suarez Globulin (S) [Mass/Vol] 3.8 g/dL Normal [facility] Comment on above: Performed By: #### C VDTBH #### [facility] [address] [address] [address] Radha Suarez Glucose [Mass/Vol] 153 mg/dL Critically high 74-106 [facility] Comment on above: Performed By: #### C VDTBH #### [facility] [address] [address] [address] Radha Suarez Potassium [Moles/Vol] 4.0 mmol/L Normal 3.5-5.1 [facility] Comment on above: Performed By: #### C VDTBH #### [facility] [address] [place] [address] Dr. Radha Suarez Protein [Mass/Vol] 7.7 g/dL Normal 6.4-8.2 [facility] Comment on above: Performed By: #### C VDTBH #### [facility] [address] [address] [address] Radha Suarez Sodium [Moles/Vol] 142 mmol/L Normal 136-145 [facility] Comment on above: Performed By: #### C VDTBH #### [facility] [address] [address] [address] Radha Suarez Urea nitrogen [Mass/Vol] 10.0 mg/dL Normal 7.0-18.0 [facility] Comment on above: Performed By: #### C VDTBH #### [facility] [address] [address] [address] Radha Suarez Urea nitrogen/Creatinine [Mass ratio] 12.2 mg/mg Normal [facility] Comment on above: Performed By: #### C VDTBH #### [facility] [address] [address] [address] Radha Suarez PROF CHEM 8 (BAS METB)on Anion gap [Moles/Vol] 14.9 mmol/L Normal [facility] Comment on above: Performed By: #### C VDTBH #### [facility] [address] [place] [address] Dr. Radha Suarez Calcium [Mass/Vol] 9.3 mg/dL Normal 8.5-10.1 [facility] Comment on above: Result Comment: resu lt to follow Previously reported as: 9.1 On 02/03/2022 09:13 By [email or web address] Performed By: #### C VDTBH #### [facility] [address] [place] [address] Dr. Radha Suarez Chloride [Moles/Vol] 104 mmol/L Normal 98-107 [facility] Comment on above: Performed By: #### C VDTBH #### [facility] [address] [place] [address] Dr. Radha Suarez CO2 [Moles/Vol] 25.7 mmol/L Normal 21.0-32.0 [facility] Comment on above: Performed By: #### C VDTBH #### [facility] [address] [place] [address] Dr. Radha Suarez Creatinine [Mass/Vol] 0.93 mg/dL Normal 0.55-1.02 [facility] Comment on above: Performed By: #### C VDTBH #### [facility] [address] [place] [address] Dr. Radha Suarez EGFR-AF BARBADIAN >60 Normal >=60 [facility] Comment on above: Performed By: #### C VDTBH #### [facility] [address] [place] [address] Dr. Radha Suarez EGFR-NON AF BARBADIAN >60 Normal >=60 [facility] Comment on above: Performed By: #### C VDTBH #### [facility] [address] [place] [address] Dr. Radha Suarez Glucose [Mass/Vol] 173 mg/dL Critically high 74-106 [facility] Comment on above: Performed By: #### C VDTBH #### [facility] [address] [address] [address] Radha Suarez Potassium [Moles/Vol] 3.6 mmol/L Normal 3.5-5.1 [facility] Comment on above: Performed By: #### C VDTBH #### [facility] [address] [address] [address] Radha Suarez Sodium [Moles/Vol] 141 mmol/L Normal 136-145 [facility] Comment on above: Performed By: #### C VDTBH #### [facility] [address] [address] [address] Radha Suarez Urea nitrogen [Mass/Vol] 12.0 mg/dL Normal 7.0-18.0 [facility] Comment on above: Performed By: #### C VDTBH #### [facility] [address] [address] [address] Radha Suarez Urea nitrogen/Creatinine [Mass ratio] 12.9 mg/mg Normal [facility] Comment on above: Performed By: #### C VDTBH #### [facility] [address] [place] [address] Dr. Radha Suarez XR CHEST 1 Von [...] NAOMIE VELASQUEZ Date: 2022-02-02 22:36 Normal [facility] Covid-19 PCR (CVDTBH)on SARS-CoV-2 (COVID-19) RNA RENÉ+probe Ql (Unsp spec) Not detected Normal NOT DETECTED [facility] Comment on above: Result Comment: When [...] for this test is supported by the [employer]r of Health and Human Service's declaration that [...] used). Performed By: #### C BC #### [facility] [address] [place] [address] Dr. Radha Suarez BNPon 01-14-2022 Natriuretic peptide B (Bld) [Mass/Vol] 86.0 pg/mL Normal <=900.0 [facility] Comment on above: Performed By: #### B TRIMMER SORTER, CMP #### [facility] [address] [place] [address] Dr. Radha Suarez CBC AUTO DIFFon 01-14-2022 BASO # 0.1 103/ul Normal 0.0-0.1 [facility] Comment on above: Performed By: #### C VDTBH #### [facility] [address] [place] [address] Dr. Radha Suarez Basophils/100 WBC (Bld) 0.6 % Normal 0.2-2.0 [facility] Comment on above: Performed By: #### C VDTBH #### [facility] [address] [place] [address] Dr. Radha Suarez EO # 0.1 103/ul Normal 0.0-0.7 [facility] Comment on above: Performed By: #### C VDTBH #### [facility] [address] [place] [address] Dr. Radha Suarez Eosinophils/100 WBC (Bld) 1.1 % Normal 0.9-7.0 [facility] Comment on above: Performed By: #### C VDTBH #### [facility] [address] [place] [address] Dr. Radha Suarez Erythrocyte distribution width (RBC) [Ratio] 14.6 % Normal 11.0-15.0 [facility] Comment on above: Performed By: #### C VDTBH #### [facility] [address] [place] [address] Dr. Radha Suarez Hematocrit (Bld) [Volume fraction] 43.8 % Normal 36.0-48.0 [facility] Comment on above: Performed By: #### C VDTBH #### [facility] [address] [place] [address] Dr. Radha Suarez Hemoglobin (Bld) [Mass/Vol] 14.7 g/dL Normal 12.0-16.0 [facility] Comment on above: Performed By: #### C VDTBH #### [facility] [address] [place] [address] Dr. Radha Suarez IG # 0.04 10e3/ul Critically high 0.00-0.03 [facility] Comment on above: Performed By: #### C VDTBH #### [facility] [address] [place] [address] Dr. Radha Suarez IG % 0.4 % Normal 0.0-0.5 [facility] Comment on above: Performed By: #### C VDTBH #### [facility] [address] [place] [address] Dr. Radha Suarez LYMPH # 1.7 103/ul Normal 1.2-3.8 [facility] Comment on above: Performed By: #### C VDTBH #### [facility] [address] [place] [address] Dr. Radha Suarez Lymphocytes/100 WBC (Bld) 19.0 % Critically low 20.5-60.0 [facility] Comment on above: Performed By: #### C VDTBH #### [facility] [address] [place] [address] Dr. Radha Suarez MANUAL DIFF REQ NO Normal [facility] Comment on above: Performed By: #### C VDTBH #### [facility] [address] [place] [address] Dr. Radha Suarez MCH (RBC) [Entitic mass] 30.5 pg Normal 26.7-34.0 [facility] Comment on above: Performed By: #### C VDTBH #### [facility] [address] [place] [address] Dr. Radha Suarez MCHC (RBC) [Mass/Vol] 33.6 g/dL Normal 29.9-35.2 [facility] Comment on above: Performed By: #### C VDTBH #### [facility] [address] [place] [address] Dr. Radha Suarez MCV (RBC) [Entitic vol] 90.9 fL Normal 81.0-99.0 [facility] Comment on above: Performed By: #### C VDTBH #### [facility] [address] [place] [address] Dr. Radha Suarez MONO # 0.6 103/ul Normal 0.3-0.8 [facility] Comment on above: Performed By: #### C VDTBH #### [facility] [address] [place] [address] Dr. Radha Suarez Monocytes/100 WBC (Bld) 6.9 % Normal 1.7-12.0 [facility] Comment on above: Performed By: #### C VDTBH #### [facility] [address] [place] [address] Dr. Radha Suarez NEUT # 6.5 103/ul Normal 1.4-6.5 [facility] Comment on above: Performed By: #### C VDTBH #### [facility] [address] [place] [address] Dr. Radha Suarez Neutrophils/100 WBC (Bld) 72.0 % Normal 43.0-75.0 [facility] Comment on above: Performed By: #### C VDTBH #### [facility] [address] [place] [address] Dr. Radha Suarez Platelet mean volume (Bld) [Entitic vol] 8.9 fL Critically low 9.5-13.5 [facility] Comment on above: Performed By: #### C VDTBH #### [facility] [address] [address] [address] Radha Suarez PLT 324 103/ul Normal 150-450 [facility] Comment on above: Performed By: #### C VDTBH #### [facility] [address] [place] [address] Dr. Radha Suarez RBC 4.82 106/ul Normal 4.20-5.40 [facility] Comment on above: Performed By: #### C VDTBH #### [facility] [address] [place] [address] Dr. Radha Suarez WBC 9.0 103/ul Normal 4.0-11.0 [facility] Comment on above: Performed By: #### C VDTBH #### [facility] [address] [place] [address] Dr. Radha Suarez Covid-19 PCR ([facility])on 12-26 SARS-CoV-2 (COVID-19) RNA RENÉ+probe Ql (Unsp spec) Not detected Normal NOT DETECTED [facility] Comment on above: Result Comment: When [...] for this test is supported by the [place] of Health and Human Service's declaration that [...] used). Performed By: #### C VDTBH #### [facility] [address] [place] [address] Dr. Radha Suarez PROF 14(COMP METB)on 022 Albumin [Mass/Vol] 3.9 g/dL Normal 3.4-5.0 [facility] Comment on above: Performed By: #### B TRIMMER SORTER, CMP #### [facility] [address] [place] [address] Dr. Radha Suarez Albumin/Globulin [Mass ratio] 1.0 {ratio} Normal [facility] Comment on above: Performed By: #### B TRIMMER SORTER, CMP #### [facility] [address] [place] [address] Dr. Radha Suarez ALP [Catalytic activity/Vol] 96 U/L Normal 46-116 [facility] Comment on above: Performed By: #### B TRIMMER SORTER, CMP #### [facility] [address] [place] [address] Dr. Radha Suarez ALT [Catalytic activity/Vol] 26 U/L Normal 14-59 [facility] Comment on above: Performed By: #### B TRIMMER SORTER, CMP #### [facility] [address] [place] [address] Dr. Radha Suarez Anion gap [Moles/Vol] 13.6 mmol/L Normal [facility] Comment on above: Performed By: #### B TRIMMER SORTER, CMP #### [facility] [address] [place] [address] Dr. Radha Suarez AST [Catalytic activity/Vol] 17 U/L Normal 15-37 [facility] Comment on above: Performed By: #### B TRIMMER SORTER, CMP #### [facility] [address] [place] [address] Dr. Radha Suarez Bilirubin [Mass/Vol] 0.3 mg/dL Normal 0.2-1.0 [facility] Comment on above: Performed By: #### B TRIMMER SORTER, CMP #### [facility] [address] [place] [address] Dr. Radha Suarez Calcium [Mass/Vol] 9.1 mg/dL Normal 8.5-10.1 [facility] Comment on above: Performed By: #### B TRIMMER SORTER, CMP #### [facility] [address] [place] [address] Dr. Radha Suarez Chloride [Moles/Vol] 106 mmol/L Normal 98-107 [facility] Comment on above: Performed By: #### B TRIMMER SORTER, CMP #### [facility] [address] [address] [address] Radha Suarez CO2 [Moles/Vol] 26.8 mmol/L Normal 21.0-32.0 [facility] Comment on above: Performed By: #### B TRIMMER SORTER, CMP #### [facility] [address] [place] [address] Dr. Radha Suarez Creatinine [Mass/Vol] 0.94 mg/dL Normal 0.55-1.02 [facility] Comment on above: Performed By: #### B TRIMMER SORTER, CMP #### [facility] [address] [place] [address] Dr. Radha Suarez EGFR-AF BARBADIAN >60 Normal >=60 [facility] Comment on above: Performed By: #### B TRIMMER SORTER, CMP #### [facility] [address] [place] [address] Dr. Radha Suarez EGFR-NON AF BARBADIAN >60 Normal >=60 [facility] Comment on above: Performed By: #### B TRIMMER SORTER, CMP #### [facility] [address] [place] [address] Dr. Radha Suarez Globulin (S) [Mass/Vol] 4.1 g/dL Normal [facility] Comment on above: Performed By: #### B TRIMMER SORTER, CMP #### [facility] [address] [place] [address] Dr. Radha Suarez Glucose [Mass/Vol] 115 mg/dL Critically high 74-106 [facility] Comment on above: Performed By: #### B TRIMMER SORTER, CMP #### [facility] [address] [place] [address] Dr. Radha Suarez Potassium [Moles/Vol] 3.4 mmol/L Critically low 3.5-5.1 [facility] Comment on above: Performed By: #### B TRIMMER SORTER, CMP #### [facility] [address] [place] [address] Dr. Radha Suarez Protein [Mass/Vol] 8.0 g/dL Normal 6.4-8.2 [facility] Comment on above: Performed By: #### B TRIMMER SORTER, CMP #### [facility] [address] [address] [address] Radha Suarez Sodium [Moles/Vol] 143 mmol/L Normal 136-145 [facility] Comment on above: Performed By: #### B TRIMMER SORTER, CMP #### [facility] [address] [place] [address] Dr. Radha Suarez Urea nitrogen [Mass/Vol] 13.0 mg/dL Normal 7.0-18.0 [facility] Comment on above: Performed By: #### B TRIMMER SORTER, CMP #### [facility] [address] [place] [address] Dr. Radha Suarez Urea nitrogen/Creatinine [Mass ratio] 13.8 mg/mg Normal [facility] Comment on above: Performed By: #### B TRIMMER SORTER, CMP #### [facility] [address] [place] [address] Dr. Radha Suarez XR CHEST 1 Von [...] ZIA DESAI Date: 2022-01-14 20:21 Normal [facility] CBC AUTO DIFFon 01-13-2022 BASO # 0.0 103/ul Normal 0.0-0.1 [facility] Comment on above: Performed By: #### C VDTBH #### [facility] [address] [place] [address] Dr. Radha Suarez Basophils/100 WBC (Bld) 0.5 % Normal 0.2-2.0 [facility] Comment on above: Performed By: #### C VDTBH #### [facility] [address] [place] [address] Dr. Radha Suarez EO # 0.1 103/ul Normal 0.0-0.7 [facility] Comment on above: Performed By: #### C VDTBH #### [facility] [address] [place] [address] Dr. Radha Suarez Eosinophils/100 WBC (Bld) 1.0 % Normal 0.9-7.0 [facility] Comment on above: Performed By: #### C VDTBH #### [facility] [address] [place] [address] Dr. Radha Suarez Erythrocyte distribution width (RBC) [Ratio] 14.6 % Normal 11.0-15.0 [facility] Comment on above: Performed By: #### C VDTBH #### [facility] [address] [place] [address] Dr. Radha Suarez Hematocrit (Bld) [Volume fraction] 42.3 % Normal 36.0-48.0 [facility] Comment on above: Performed By: #### C VDTBH #### [facility] [address] [place] [address] Dr. Radha Suarez Hemoglobin (Bld) [Mass/Vol] 13.7 g/dL Normal 12.0-16.0 [facility] Comment on above: Performed By: #### C VDTBH #### [facility] [address] [place] [address] Dr. Radha Suarez IG # 0.04 10e3/ul Critically high 0.00-0.03 [facility] Comment on above: Performed By: #### C VDTBH #### [facility] [address] [place] [address] Dr. Radha Suarez IG % 0.5 % Normal 0.0-0.5 [facility] Comment on above: Performed By: #### C VDTBH #### [facility] [address] [place] [address] Dr. Radha Suarez LYMPH # 1.8 103/ul Normal 1.2-3.8 [facility] Comment on above: Performed By: #### C VDTBH #### [facility] [address] [place] [address] Dr. Radha Suarez Lymphocytes/100 WBC (Bld) 21.4 % Normal 20.5-60.0 [facility] Comment on above: Performed By: #### C VDTBH #### [facility] [address] [place] [address] Dr. Radha Suarez MANUAL DIFF REQ NO Normal [facility] Comment on above: Performed By: #### C VDTBH #### [facility] [address] [place] [address] Dr. Radha Suarez MCH (RBC) [Entitic mass] 30.0 pg Normal 26.7-34.0 [facility] Comment on above: Performed By: #### C VDTBH #### [facility] [address] [place] [address] Dr. Radha Suarez MCHC (RBC) [Mass/Vol] 32.4 g/dL Normal 29.9-35.2 [facility] Comment on above: Performed By: #### C VDTBH #### [facility] [address] [place] [address] Dr. Radha Suarez MCV (RBC) [Entitic vol] 92.8 fL Normal 81.0-99.0 [facility] Comment on above: Performed By: #### C VDTBH #### [facility] [address] [place] [address] Dr. Radha Suarez MONO # 0.7 103/ul Normal 0.3-0.8 [facility] Comment on above: Performed By: #### C VDTBH #### [facility] [address] [place] [address] Dr. Radha Suarez Monocytes/100 WBC (Bld) 7.9 % Normal 1.7-12.0 [facility] Comment on above: Performed By: #### C VDTBH #### [facility] [address] [place] [address] Dr. Radha Suarez NEUT # 5.6 103/ul Normal 1.4-6.5 [facility] Comment on above: Performed By: #### C VDTBH #### [facility] [address] [address] [address] Radha Suarez Neutrophils/100 WBC (Bld) 68.7 % Normal 43.0-75.0 [facility] Comment on above: Performed By: #### C VDTBH #### [facility] [address] [place] [address] Dr. Radha Suarez Platelet mean volume (Bld) [Entitic vol] 9.5 fL Normal 9.5-13.5 [facility] Comment on above: Performed By: #### C VDTBH #### [facility] [address] [place] [address] Dr. Radha Suarez PLT 321 103/ul Normal 150-450 [facility] Comment on above: Performed By: #### C VDTBH #### [facility] [address] [place] [address] Dr. Radha Suarez RBC 4.56 106/ul Normal 4.20-5.40 [facility] Comment on above: Performed By: #### C VDTBH #### [facility] [address] [place] [address] Dr. Radha Suarez WBC 8.2 103/ul Normal 4.0-11.0 [facility] Comment on above: Performed By: #### C VDTBH #### [facility] [address] [place] [address] Dr. Radha Suarez FREE T3on 01-13-2022 FREE T3 1.99 pg/mlL Critically low 2.18-3.98 [facility] Comment on above: Performed By: #### C BC #### [facility] [address] [place] [address] Dr. Radha Suarez FREE T4on 01-13-2022 Free T4 [Mass/Vol] 1.02 ng/dL Normal 0.76-1.46 [facility] Comment on above: Performed By: #### C VDTBH #### [facility] [address] [place] [address] Dr. Radha Suarez MRI LUMBAR SPINE WO IVCONon 01-13-2022 MRI LUMBAR SPINE WO IVCON * * *Final Report* * * DATE OF EXAM: Jan 13 2022 2:53PM [facility] 0303 - MRI LUMBAR SPINE WO [...] crest and there are 5 lumbar-type vertebrae. Monitor And Storage Bin Tender: PSCB Transcribe Date/Time: Jan 13 2022 3:43P Dictated by : KIERAN MONTOYA MD This examination was interpreted and the report reviewed and electronically signed by: KIERAN MONTOYA MD on Jan 13 2022 3:50PM EST [id number] Normal [facility] MRI THORACIC SPINE WO IVCONo n 01-13-2022 MRI THORACIC SPINE WO IVCON * * *Final Report* * * DATE OF EXAM: Jan 13 2022 2:53PM [facility] 0325 - MRI THORACIC SPINE WO [...] crest and there are 5 lumbar-type vertebrae. Monitor And Storage Bin Tender[facility] Transcribe Date/Time: Jan 13 2022 3:43P Dictated by : KIERAN MONTOYA MD This examination was interpreted and the report reviewed and electronically signed by: KIERAN MONTOYA MD on Jan 13 2022 3:50PM EST [id number] Normal [facility] No Panel Informationon 01-13 [facility] PROF CHEM 8 (BAS METB)on Anion gap [Moles/Vol] 11.3 mmol/L Normal [facility] Comment on above: Performed By: #### C BC #### [facility] [address] [place] [address] Dr. Radha Suarez Calcium [Mass/Vol] 9.5 mg/dL Normal 8.5-10.1 [facility] Comment on above: Performed By: #### C BC #### [facility] [address] [place] [address] Dr. Radha Suarez Chloride [Moles/Vol] 105 mmol/L Normal 98-107 [facility] Comment on above: Performed By: #### C BC #### [facility] [address] [address] [address] Radha Suarez CO2 [Moles/Vol] 28.2 mmol/L Normal 21.0-32.0 [facility] Comment on above: Performed By: #### C BC #### [facility] [address] [place] [address] Dr. Radha Suarez Creatinine [Mass/Vol] 0.86 mg/dL Normal 0.55-1.02 [facility] Comment on above: Performed By: #### C BC #### [facility] [address] [place] [address] Dr. Radha Suraez EGFR-AF BARBADIAN >60 Normal >=60 [facility] Comment on above: Performed By: #### C BC #### [facility] [address] [place] [address] Dr. Radha Suarez EGFR-NON AF BARBADIAN >60 Normal >=60 [facility] Comment on above: Performed By: #### C BC #### [facility] [address] [place] [address] Dr. Radha Suarez Glucose [Mass/Vol] 99 mg/dL Normal 74-106 [facility] Comment on above: Performed By: #### C BC #### [facility] [address] [place] [address] Dr. Radha Suarez Potassium [Moles/Vol] 3.5 mmol/L Normal 3.5-5.1 [facility] Comment on above: Performed By: #### C BC #### [facility] [address] [place] [address] Dr. Radha Suarez Sodium [Moles/Vol] 141 mmol/L Normal 136-145 [facility] Comment on above: Performed By: #### C BC #### [facility] [address] [address] [address] Radha Suarez Urea nitrogen [Mass/Vol] 15.0 mg/dL Normal 7.0-18.0 [facility] Comment on above: Performed By: #### C BC #### [facility] [address] [address] [address] Radha Suarez Urea nitrogen/Creatinine [Mass ratio] 17.4 mg/mg Normal [facility] Comment on above: Performed By: #### C BC #### [facility] [address] [address] [address] Radha Suarez TSHon 01-13-2022 TSH 5.692 uIU/mL Critically high 0.358-3.740 [facility] Comment on above: Performed By: #### C BC #### [facility] [address] [place] [address] Dr. Radha Suarez C-REACTIVE PROTEIN (CRP)on 0 [...] [facility] CNOVon 12-03-2021 CNOV Office Visit (PAINLN) NATO SHORT ([id number]) 1970 F Date Time Provider Department 12/03/21 [...] she is a candidate for SCS (saw [employer] website). Patient reports the date of onset [...] supervised home exercise program (HEP): No 5. Band Cutter: No Passive conservative therapy lasting 6 weeks in the last six months (see below) 1. Medical devises: No 2. Acupuncture: No 3. Tens unit: No 4. Prescription pain medication: No 5. 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 EXAMINATION: [id number] TERIOR: Scoliosis: No Pelvic Tilt: No Leg [...] sounds no (more content not included)... Normal [facility] CRP SerPl-mCncon 12-03-2021 CRP [Mass/Vol] 0.9 mg/dL High <0.9 [facility] Comment on above: Order Comment: Speci men Type: BLOOD SPECIMEN Ordering Facility: [facility] Address: [address] [place] [address] Performed By: #### 1 [id number] #### [facility] CLIA [id number] [address] [place] [address] [place] ESR Westergren method (Bld) [Velocity]on 12-03-2021 ESR (Bld) [Velocity] 17 mm/h Normal 0-20 [facility] Comment on above: Order Comment: Speci men Type: BLOOD SPECIMEN Ordering Facility: [facility] Address: [address] [place] [address] Performed By: #### 4 [id number] #### [facility] CLIA [id number] [address] [place] [address] [place] HGB A1Con 12-03-2021 Average glucose Estimated from glycated hemoglobin (Bld) [Mass/Vol] 111 mg/dL Normal [facility] Comment on above: Order Comment: Speci men Type: BLOOD SPECIMEN Ordering Facility: [facility] Address: [address] [place] [address] Result Comment: eAG: (Estimated average glucose) is a calculated value from HgbA1c and is payable representative of the average blood glucose level in the last 2-3 month period. Performed By: #### H BA1C #### [facility] CLIA [id number] [address] [place] [address] [place] HbA1c (Bld) [Mass fraction] 5.5 % Normal 4.3-5.6 [facility] Comment on above: Order Comment: Speci men Type: BLOOD SPECIMEN Ordering Facility: [facility] Address: [address] [place] [id number] Result Comment: Raymundo ican Diabetes Association guidelines indicate that patients with HgbA1c in the range 5.7-6.4% are at increased risk for development of diabetes, and intervention by lifestyle modification may be beneficial. HgbA1c greater or equal to 6.5% is considered diagnostic of diabetes. Performed By: #### H BA1C #### [facility] CLIA [id number] [address] [place] [address] [place] No Panel Informationon [...] subluxation at L4-5 with facet degenerative changes Monitor And Storage Bin Tender: SAVAGE Transcribe Date/Time: Dec 04 2021 8:19P Dictated by : PARMJIT PIMENTEL MD This examination was interpreted and the report reviewed and electronically signed by: PARMJIT PIMENTEL MD on Solo 10 2022 8:20PM EST [id number] CN [facility] (PAINLN) NATO SHORT ([id number]) 1970 F Date Time Provider Department 12/02/21 LAZARUS JOHNSON PAINLN During your visit today, we recorded the following information about you: Keren Rosales MA 12/02/2021 1:49 PM Signed Patient was advised of the following: This is a follow up phone call regarding your appointment with Dr Johnson, which you are scheduled to see at [facility] on 12/03/2021 1) Have you been [...] need to reschedule please call us at [phone]. Left VM with new patient policy advised [...] Status:Closed by KEREN ROSALES on 12/02/21 Normal [facility] XR FOOT LT MIN 3 VIEWSon [...] by: NAOMIE VELASQUEZ Date: 2021-11-12 21:36 Normal [facility] XR CHEST 2 Von 07-24-2021 SARS-CoV-2 [...] by: NAOMIE VELASQUEZ Date: 2021-07-23 22:04 Normal [facility] Consent for Treatmenton Consent for Treatment [id number] #1.00CD:127 Normal [facility] Registrationon 03-05-2020 Registration [id number] #1.00CD:127 Normal [facility] Consenton 02-29-2020 Consent [id number]#1.00CD:127 [facility] Vital Signs Date Time Vital Sign Value Performing Clinician Faci lity 03-28-2024 17:03-0400 Body height 151.8 cm Whitrosey Huttongeoholz [employer]MER [employer]TER Work Phone: [facility] 03-28-2024 17:03-0400 Body mass index (BMI) [Ratio] 43.09 kg/m2 Whit Aichholz [employer] Work Phone: [facility] 03-28-2024 17:03-0400 Body temperature 98.49 [degF] Whit Aichholz [employer] Work Phone: [facility] 03-28-2024 17:03-0400 Body weight 99.25 kg Whit Aichholz [employer] Work Phone: [facility] 03-28-2024 17:03-0400 Diastolic blood pressure 94 mm[Hg] Whit Aichholz [employer] Work Phone: [facility] 03-28-2024 17:03-0400 Heart rate 89 /min Whit Brennenhholz [employer]MER [employer]TER Work Phone: [facility] 03-28-2024 17:03-0400 Respiratory rate 19 /min Whit Aichholz [employer]MER [employer]TER Work Phone: [facility] 03-28-2024 17:03-0400 SaO2% (BldA) [Mass fraction] 96 % Whit Brennenhholz [employer] Work Phone: [facility] 03-28-2024 17:03-0400 Systolic blood pressure 140 mm[Hg] Whit Brennenhholz [employer]MER [employer]TER Work Phone: [facility] 03-26-2024 18:01-0400 Body height 151.8 cm Whit Aichholz [employer] Work Phone: [facility] 03-26-2024 18:01-0400 Body mass index (BMI) [Ratio] 42.85 kg/m2 Wiht Aichholz [employer]MER [employer]TER Work Phone: [facility] 03-26-2024 18:01-0400 Body temperature 98.49 [degF] Whit Aichholz [employer]TER Work Phone: [facility] 03-26-2024 18:01-0400 Body weight 98.7 kg Whit Brennenhholz TR[employer]MER [employer]TER Work Phone: [facility] 03-26-2024 18:01-0400 Diastolic blood pressure 98 mm[Hg] Whit Aichholz [employer]TER Work Phone: [facility] 03-26-2024 18:01-0400 Heart rate 89 /min Whit Aichholz [employer]MER [employer]TER Work Phone: [facility] 03-26-2024 18:01-0400 Respiratory rate 18 /min Whit Aichholz [employer]MER [employer]TER Work Phone: [facility] 03-26-2024 18:01-0400 SaO2% (BldA) [Mass fraction] 94 % Whit Aichholz [employer] Work Phone: [facility] 03-26-2024 18:01-0400 Systolic blood pressure 140 mm[Hg] Whit Aichholz [employer]MER [employer]TER Work Phone: [facility] 03-08-2024 15:07-0400 Body height 151.8 cm Whit Aichholz [employer]MER [employer]TER Work Phone: [facility] 03-08-2024 15:07-0400 Body mass index (BMI) [Ratio] 42.77 kg/m2 Whit Aichholz [employer]TER Work Phone: [facility] 03-08-2024 15:07-0400 Body temperature 97.81 [degF] Whit Aichholz [employer]TER Work Phone: [facility] 03-08-2024 15:07-0400 Body weight 98.52 kg Whit Aichholz [employer]TER Work Phone: [facility] 03-08-2024 15:07-0400 Diastolic blood pressure 80 mm[Hg] Whit Aichholz [employer]MER [employer]TER Work Phone: [facility] 03-08-2024 15:07-0400 Heart rate 92 /min Whit Aichholz [employer]MER [employer]TER Work Phone: [facility] 03-08-2024 15:07-0400 Respiratory rate 19 /min Whit Trishaalissonz [employer]TER Work Phone: [facility] 03-08-2024 15:07-0400 SaO2% (BldA) [Mass fraction] 96 % Whit Trishaalissonz [employer]TER Work Phone: [facility] 03-08-2024 15:07-0400 Systolic blood pressure 128 mm[Hg] Whit Trishaalissonz [employer]MER [employer]TER Work Phone: [facility] 12-03-2021 15:14-0400 Body height 152.4 cm Lazarus Johnson MD Work Phone: [facility] 12-03-2021 15:14-0400 Heart rate 85 /min Lazarus Johnson MD Work Phone: [facility] 12-03-2021 15:14-0400 SaO2% (BldA) [Mass fraction] 96 % Lazarus Johnson MD Work Phone: [facility] Encounters Encounter Date Encounter Type Care Provider Facility Start: 12-19-2024 End: 12-19-2024 Refill Whit Brennengeoalissonz [employer]TER Work Phone: [facility] Comment on above: Vertigo (Primary Dx) Vertigo Start: 11-24-2024 End: 11-24-2024 Refill Whit Brennengeoholz [employer]IM[employer] S[employer]TER Work Phone: [facility] Comment on above: Anxiety and depressi on ([facility]) Start: 10-11-2024 End: 10-18-2024 Refill Whit Aichholz [employer] Work Phone: [facility] Comment on above: Gastroesophageal ref lux disease, unspecified whether esophagitis present; Hypothyroidism (acquired) ([facility]) Start: 09-26-2024 End: 09-26-2024 Refill Whit Aichholz [employer] Work Phone: [facility] Comment on above: Mixed hyperlipidemia (CMS/[facility]) Start: 09-25-2024 End: 09-25-2024 Refill Whit Aichholz [employer] Work Phone: [facility] Comment on above: Migraine with aura a nd without status migrainosus, not intractable ([facility] Primary insomnia Start: 09-17-2024 End: 09-17-2024 Refill Whit Aichholz [employer] Work Phone: [facility] Comment on above: Gastroesophageal ref lux disease, unspecified whether esophagitis present Start: 07-18-2024 End: 07-18-2024 Refill Whit Aichholz [employer]TER Work Phone: [facility] Comment on above: Acute non-recurrent sinusitis of other sinus (Primary Dx) Start: 07-16-2024 End: 07-16-2024 Refill Whit Aichholz [employer]TER Work Phone: [facility] Comment on above: URI with cough and c ongestion (Primary Dx) Start: 07-12-2024 End: 07-12-2024 Refill Whit Aichholz [employer]TER Work Phone: [facility] Comment on above: Anxiety and depressi on ([facility]) Start: 07-02-2024 End: 07-02-2024 Refill Whit Aichholz [employer]TER Work Phone: [facility] Comment on above: Hypothyroidism (acqu ired) ([facility]) (Primary Dx) Start: 06-26-2024 End: 06-26-2024 Clinisync Result Encounter Whit Aichholz [employer]TER Work Phone: [facility] Unsolicited Start: 06-26-2024 End: 06-26-2024 Clinisync Result Encounter Whit Aichholz [employer] Work Phone: [facility] Unsolicited Start: 06-25-2024 End: 06-25-2024 Refill Whit Aichholz [employer] Work Phone: [facility] Start: 06-22-2024 End: 06-25-2024 Refill Whit Aichholz [employer] Work Phone: [facility] Comment on above: Hypothyroidism (acqu ired) ([facility]) Start: 06-04-2024 End: 06-04-2024 Refill Whit Aichholz [employer] Work Phone: [facility] Comment on above: Spinal stenosis of l umbar region, unspecified whether neurogenic claudication present (Primary Dx); Migraine with aura and without status migrainosus, not intractable ([facility]); Primary insomnia; Mixed hyperlipidemia ([facility]); Anxiety and depression ([facility]); Hypothyroidism (acquired) ([facility]); Gastroesophageal reflux disease, unspecified whether esophagitis present Start: 05-28-2024 End: 05-28-2024 Refill Whit Aichholz [employer] Work Phone: [facility] Comment on above: Muscle spasm (Primar y Dx) Start: 05-11-2024 End: 05-11-2024 Refill Whit Aichholz [employer]TER Work Phone: [facility] Comment on above: Hypothyroidism (acqu ired) ([facility]) Start: 05-10-2024 End: 05-10-2024 Clinisync Result Encounter Whit Aichholz TRIMMER SORTER Work Phone: [facility] External Department Unsolicited Start: 05-10-2024 End: 05-10-2024 Clinisync Result Encounter Whit Aichholz TRIMMER SORTER Work Phone: [facility] External Department Unsolicited Start: 05-09-2024 End: 05-09-2024 Orders Only Whit Aichholz [employer]IM[employer]TER Work Phone: [facility] Comment on above: Cervical radiculopat hy (Primary Dx); Cervical myelopathy ([facility]/HCC) Start: 05-04-2024 End: 05-04-2024 Refill Whit Aichholz TRIMMER [employer]TER Work Phone: [facility] Comment on above: Gastroesophageal ref lux disease, unspecified whether esophagitis present Start: 04-12-2024 End: 04-12-2024 Refill Whit Sorensen [employer]IMMER [employer]TER Work Phone: [facility] Comment on above: Oral thrush (Primary Dx) Start: 03-28-2024 End: 03-28-2024 Periodic preventive med est patient 40-64yrs Whit Sorensen TRIMMER SORTER Work Phone: [facility] Comment on above: Encounter for annual wellness visit (Primary Dx); Migraine with aura and without status migrainosus, not intractable (CMS/HCC); Primary insomnia; Pre-operative clearance; Elevated blood pressure, situational; Morbid obesity due to excess calories (CMS/HCC); Current smoker Start: 03-28-2024 End: 03-28-2024 ambulatory WHIT AICHHOLZ Not Available Start: 03-28-2024 End: 03-28-2024 Bamboo flowsheet Whit oSrensen TRIMMER SORTER Work Phone: [facility] Start: 03-28-2024 End: 03-28-2024 Bamboo flowsheet Whit Sorensen [employer]TER Work Phone: [facility] Start: 03-28-2024 End: 03-28-2024 Patient encounter procedure Whit Sorensen TRIMMER SORTER Work Phone: [facility] Start: 03-28-2024 End: 03-28-2024 Preoperative state Whit Sorensen TRIMMER [employer]TER Work Phone: [facility] Start: 03-26-2024 End: 03-26-2024 Office outpatient visit 25 minutes Whit Sorensen [employer]TER Work Phone: [facility] Comment on above: Cervical radiculopat hy (Primary Dx); Elevated blood pressure, situational; Morbid obesity due to excess calories (CMS/HCC); Multiple thyroid nodules (CMS/HCC) Start: 03-26-2024 End: 03-26-2024 ambulatory WHIT AICHHOLZ Not Available Start: 03-20-2024 End: 09-25-2024 Refill Whit Aichholz [employer]TER Work Phone: [facility] Comment on above: Mixed hyperlipidemia (CMS/HCC) Start: 03-14-2024 End: 03-15-2024 Refill Whit Aichholz [employer]MER [employer]TER Work Phone: [facility] Comment on above: Primary insomnia Start: 03-08-2024 End: 03-08-2024 ambulatory WHIT AICHHOLZ Not Available Start: 03-08-2024 End: 03-08-2024 Office outpatient visit 15 minutes Whit Trishaholz [employer]MER [employer]TER Work Phone: [facility] Comment on above: Hypothyroidism (acqu ired) (CMS/HCC) (Primary Dx); Major depressive disorder, recurrent, moderate (HCC) (CMS/HCC); Supraventricular tachycardia, unspecified (CMS/HCC); Morbid obesity due to excess calories (CMS/HCC) Start: 03-08-2024 End: 03-08-2024 Bamboo flowsheet Whit Aicgeoholz TRIMMER SORTER Work Phone: [facility] Start: 03-08-2024 End: 03-08-2024 Bamboo flowsheet Whit Aichholz TR[employer]MER [employer]TER Work Phone: [facility] Start: 03-07-2024 End: 03-07-2024 Clinisync Result Encounter Whit Aichholz TRIMMER [employer]ORTER Work Phone: [facility] Unsolicited Start: 03-07-2024 End: 03-07-2024 Clinisync Result Encounter Whit Aichholz TRIMMER [employer]ORTER Work Phone: [facility] Unsolicited Start: 03-07-2024 End: 03-07-2024 Refill Whit Aichholz TRIMMER [employer]ORTER Work Phone: [facility] Comment on above: Hypothyroidism (acqu ired) (CMS/HCC) (Primary Dx) Start: 03-03-2024 End: 03-05-2024 Refill Whit Aichholz TRIMMER [employer]TER Work Phone: [facility] Comment on above: Mixed hyperlipidemia (CMS/[facility]); Hypothyroidism (acquired) ([facility]) Start: 02-29-2024 End: 02-29-2024 Refill Whit Aichholz TRIMMER SORTER Work Phone: [facility] Comment on above: Morbid obesity due t o excess calories ([facility]) Start: 02-22-2024 End: 02-22-2024 Office outpatient new 45 minutes Campbell Arria NLGeim PA Work Phone: [facility] Comment on above: Onychomycosis (Prima ry Dx); Tinea pedis, recurrent; Seborrheic keratosis; Tinea pedis of left foot; Allergic contact dermatitis due to cosmetics Start: 02-22-2024 End: 02-22-2024 ambulatory CAMPBELL NORTHEIM Not Available Start: 02-22-2024 End: 02-22-2024 Bamboo flowsheet [facility] Work Phone: [facility] Start: 02-22-2024 End: 02-22-2024 Bamboo flowsheet [facility] Work Phone: [facility] Start: 02-13-2024 End: 02-14-2024 Refill Whit Aichholz [employer]IMMER [employer]TER Work Phone: [facility] Comment on above: Lumbar radiculopathy Start: 01-16-2024 End: 01-16-2024 ambulatory WHIT AICHHOLZ Not Available Start: 01-05-2024 End: 01-05-2024 ambulatory WHIT AICHHOLZ Not Available Start: 12-19-2023 End: 02-26-2025 Telephone encounter Fidel Smith MD Work Phone: [facility] Comment on above: Med Refill Start: 12-12-2023 End: 12-12-2023 ambulatory WHIT AICHHOLZ Not Available Start: 09-05-2023 End: 09-05-2023 ambulatory WHIT AICHHOLZ Not Available Start: 05-24-2023 End: 05-24-2023 ambulatory WHIT AICHHOLZ Not Available Start: 02-10-2023 End: 02-13-2023 ambulatory WHIT SORENSEN [facility] Start: 07-15-2022 End: 07-15-2022 ambulatory NATACHA SORENSEN Facility:[facility] Start: 05-30-2022 End: 05-30-[address] MEY FARNSWORTH Facility:[facility] Start: 04-21-2022 Encounter for other preprocedural examination NATACHA BENZElvis [facility] Start: 04-20-2022 ambulatory NATACHA SORENSEN Facil ity:[facility]1 Start: 04-16-2022 End: 04-17-2022 ambulatory NATACHA SORENSEN Facility:[facility] Start: 04-16-2022 End: 04-17-2022 Encounter for other preprocedural examination NATACHA SORENSEN Facility:[facility] Start: 03-08-2022 End: 03-09-2022 ambulatory NATACHA SORENSEN Facility:[facility] Start: 02-22-2022 Get Medical Advice [...] Subsequent hospital visit by physician Mri [facility] (Lg Bore/1.5t) Radiology MRI Comment on above: [...] Kang RT(R) [place] [place] Start: 12-11-2021 ambulatory IMPLEMENTATION DIRECTOR WHIT MALCOLM Facil ity:[facility]1 Start: 12-03-2021 End: 12-03-2021 Subsequent hospital visit by physician Xr [facility] Comment on above: Radiculopathy of lum [...] ma naglambert) Start: 11-19-2021 End: 11-20-2021 ambulatory IMPLEMENTATION DIRECTOR WHIT MALCOLM Facility:[facility] Start: 11-12-2021 End: 11-13-2021 ambulatory IMPLEMENTATION DIRECTOR WHIT MALCOLM Facility:[facility] Start: 07-23-2021 End: 07-24-2021 ambulatory IMPLEMENTATION DIRECTOR WHIT MALCOLM Facility:[facility] Procedures Date Procedure Procedure Detail Performing Clinician Start: 06-26-2024 ALL CBC WITH AUTO DIFF Whit Sorensen [employer]MER [employer]TER Work Phone: Start: 05-10-2024 ALL THYROID STIM HORMONE Whit Benzelvis TR[employer]MER S[employer]TER Work Phone: Start: 05-10-2024 ALL THYROXINE (T4) FREE Whit Benzz [employer]MER S[employer]TER Work Phone: Start: 03-07-2024 ALL T3 FREE Whit lake TRIMMER SORTER Work Phone: Start: 03-07-2024 ALL THYROID STIM HORMONE Whit Ricoalissonelvis TRIMMER SORTER Work Phone: Start: 01-13-2022 Mri spinal canal tho racic w/o contrast matrl Lazarus Johnson MD Work Phone: Start: 12-03-2021 Radex spine lumbosac ral 2/3 views Lazarus Johnson MD Work Phone: Start: 08-09-2018 Colonoscopy Whit Pandey aleksandra TR[employer]MER S[employer]TER Work Phone: Plan of Treatment Date Care Activity Detail Author Start: 08-09-2028 Screening for malign ant neoplasm of colon [facility] Start: 12-03-2024 DIABETES SCREEN DIABETES SCREEN [facility] Start: 12-03-2024 Diabetes Screening Diabetes Screentiffanie [facility] Start: 11-29-2024 End: 11-29-2024 Patient encounter procedure 11/29/2024 1:00 PM EDT Office Visit [facility] [address] [place] [address] Whit Sorensen NP [address] [place] [id number] [facility] Start: 09-20-2024 End: 09-20-2024 Patient encounter procedure 09/20/2024 3:00 PM EDT Office Visit [facility] [address] [place] [address] Whit Sorensen NP [address] [place] [id number] [facility] Start: 08-30-2024 End: 07-02-2025 Thyrotropin [Units/volume] in Serum or Plasma TSH Lab Routine Hypothyroidism (acquired) ([facility]) Expected: 08/30/2024 (Approximate), Expires: 07/02/2025 [facility] Work Phone: Comment on above: Expected: 08/30/2024 (Approximate), Expires: 07/02/2025 Start: 08-30-2024 End: 07-02-2025 Thyroxine (T4) free [Mass/volume] in Serum or Plasma T4, free Lab Routine Hypothyroidism (acquired) ([facility]) Expected: 08/30/2024 (Approximate), Expires: 07/02/2025 [facility] Comment on above: Expected: 08/30/2024 (Approximate), Expires: 07/02/2025 Start: 07-21-2024 End: 05-11-2025 Thyroxine (T4) free [Mass/volume] in Serum or Plasma T4, free Lab Routine Hypothyroidism (acquired) ([facility]) Expected: 07/21/2024 (Approximate), Expires: 05/11/2025 [facility] Comment on above: Expected: 07/21/2024 (Approximate), Expires: 05/11/2025 Start: 07-11-2024 End: 05-11-2025 Thyrotropin [Units/volume] in Serum or Plasma TSH Lab Routine Hypothyroidism (acquired) ([facility]) Expected: 07/11/2024 (Approximate), Expires: 05/11/2025 [facility] Work Phone: Comment on above: Expected: 07/11/2024 (Approximate), Expires: 05/11/2025 Start: 05-07-2024 End: 03-07-2025 Thyrotropin [Units/volume] in Serum or Plasma TSH Lab Routine Hypothyroidism (acquired) ([facility]) Expected: 05/07/2024 (Approximate), Expires: 03/07/2025 [facility] Work Phone: Comment on above: Expected: 05/07/2024 (Approximate), Expires: 03/07/2025 Start: 05-07-2024 End: 03-07-2025 Thyroxine (T4) free [Mass/volume] in Serum or Plasma T4, free Lab Routine Hypothyroidism (acquired) (CMS/HCC) Expected: 05/07/2024 (Approximate), Expires: 03/07/2025 [facility] Comment on above: Expected: 05/07/2024 (Approximate), Expires: 03/07/2025 Start: 05-02-2024 End: 05-02-2024 Patient encounter procedure 05/02/2024 4:30 PM EST Office Visit [facility] [address] [place] [address] Whit Sorensen, [employer] [address] [place] [phone] [facility] Start: 03-28-2024 End: 03-28-2024 Patient encounter procedure [facility] Comment on above: Arrived Start: 03-28-2024 End: 03-28-2025 Basic metabolic 1998 panel - Serum or Plasma Basic metabolic panel Lab Routine Pre-operative clearance Expected: 03/28/2024 (Approximate), Expires: 03/28/2025 [facility] Comment on above: Expected: 03/28/2024 (Approximate), Expires: 03/28/2025 Start: 03-28-2024 End: 03-28-2025 CBC W Auto Differential panel - Blood CBC and differential Lab Routine Pre-operative clearance Expected: 03/28/2024 (Approximate), Expires: 03/28/2025 [facility] Work Phone: Comment on above: Expected: 03/28/2024 (Approximate), Expires: 03/28/2025 Start: 03-28-2024 End: 03-28-2025 ECG 12 lead ECG 12 lead ECG Routine Pre-operative clearance Expected: 03/28/2024 (Approximate), Expires: 03/28/2025 [facility] Comment on above: Expected: 03/28/2024 (Approximate), Expires: 03/28/2025 Start: 03-27-2024 End: 03-27-2024 Patient encounter procedure 03/27/2024 4:00 PM EDT Office Visit [facility] [address] [place] [address] Campbell Bach PA [address] [place] [address] [facility] Start: 03-08-2024 End: 03-08-2024 Patient encounter procedure 03/08/2024 3:00 PM EDT Office Visit [facility] [address] [place] [phone] Whit Sorensen NP [address] [place] [phone] [facility] Start: 02-22-2024 End: 02-22-2024 Patient encounter procedure [facility] Comment on above: Tinea pedis, recurre nt Start: 02-25-2023 Influenza vaccination [facility] Start: 06-27-2022 DEPRESSION ASSESSMENT DEPRESSION ASS ESSMENT [facility] Start: 02-25-2022 Influenza vaccination [facility] Start: 01-26-2022 End: 03-28-2022 Basic metabolic 2000 panel - Serum or Plasma BASIC METABOLIC PNL Lab Routine Lumbar disc herniation Radiculopathy of lumbar region Expected: 01/26/2022, Expires: 03/28/2022 [facility] Work Phone: Comment on above: Expected: 01/26/2022 , Expires: 03/28/2022 Start: 2020 SHINGRIX VACCINE (1 of 2) SHINGRIX VACCINE (1 of 2) [facility] Start: 2015 COLOGUARD (FIT-DNA) COLOGUARD (FIT-D NA) [facility] Start: 2015 Colonoscopy COLONOSCOPY [facility] Start: 2015 COLORECTAL CANCER SCREENING COLORECTAL CANCER SCREENING [facility] Start: [address] COLONOGRAPHY [facility] Start: 2015 DIABETES SCREEN DIABETES SCREEN [facility] Start: 2015 FECAL OCCULT BLOOD FECAL OCCULT BLOO D [facility] Start: 2015 Lipid 1996 panel - Serum or Plasma Lipid Screening [facility] Start: 2015 LIPID SCREEN LIPID SCREEN [facility] Start: 2015 SIGMOIDOSCOPY SIGMOIDOSCOPY [facility] Start: 2010 Mammography [facility] Start: 2010 Screening for malign ant neoplasm of breast Mammogram [facility] Start: 2000 HPV TESTING HPV TESTING [facility] Start: 2000 Screening for malign ant neoplasm of cervix HPV/Cotest [facility] Start: 1991 PAP TESTING PAP TESTING [facility] Start: 1991 Screening for malign ant neoplasm of cervix Pap Smear [facility] Start: 1989 Urine microalbumin profile [facility] Start: 1988 HEPATITIS C SCREENING HEPATITIS C SC REENING [facility] Start: 1988 HIV SCREENING HIV SCREENING [facility] Start: 1982 Adult depression screening assessment DEPRESSION SCREENING [facility] Start: 1976 PNEUMOCOCCAL (1 - PCV) PNEUMOCOCCAL (1 - PCV) [facility] Start: 1976 Pneumococcal vaccination Pneumococcal Vaccine (1 - PCV) [facility] Start: [...] - 3-dose series) [facility] Start: 1970 Screening for malign ant neoplasm of colon [facility] Start: 1970 Screening for malign ant neoplasm of lung Lung Cancer Screening Shared Decision Making [facility] End: 01-02-2023 Mri spinal canal lumbar w/o contrast material MRI LUMBAR SPINE WO IVCON Radiology Routine Radiculopathy of lumbar region 1 Occurrences starting 12/03/2021 until 01/02/2023 [facility] Work Phone: Comment on above: 1 Occurrences starti ng 12/03/2021 until 01/02/2023 End: 01-02-2023 Mri spinal canal thoracic w/o contrast matrl MRI THORACIC SPINE WO IVCON Radiology Routine Radiculopathy of lumbar region 1 Occurrences starting 12/03/2021 until 01/02/2023 [facility] Work Phone: Comment on above: 1 Occurrences starti ng 12/03/2021 until 01/02/2023 [facility] Immunizations Immunization Date Immunization Notes Care Provider [facility] 04-24-2009 novel influenza-H1N1 -09, preservative-free, injectable Whit Sorensen NP Work Phone: [facility] 04-24-2009 influenza virus vacc ine, unspecified formulation Mri Bore/1.5t) [facility] Payers Date Payer Category Payer Private Health Insurance [id number] 2023 Private Health Insurance [id number] 2021 Unknown [employer] PPO OOS [id number] 2021-Present [phone] [address] [place] [address] PPO [id number] 2021 Unknown [employer] PPO OOS [id number] 2021-Present [phone] [address] [place] [address] PPO [id number] 2020 Medicaid [employer]ICA[employer] [id number] 2020-Present [phone] [address] [place] [address] Medicaid [id number] 2020 Medicaid [id number] 1970 Unknown [id number] 2.16.840.1.657841.3.579.2. 593 1970 Unknown [id number] 2.16.840.1.092757.3.579.2. 593 1970 Unknown [id number] 2.16.840.1.888244.3.579.2. 593 1970 Unknown [id number] 2.16.840.1.759284.3.579.2. 593 1970 Unknown [id number] 2.16.840.1.197518.3.579.2. 593 1970 Unknown [id number] 2.16.840.1.776575.3.579.2. 593 1970 Unknown [id number] 2.16.840.1.447015.3.579.2. 593 1970 Unknown [id number] 2.16.840.1.416105.3.579.2. 593 1970 Unknown [id number] 2.16.840.1.964123.3.579.2. 593 1970 Unknown [id number] 2.16.840.1.107822.3.579.2. 593 1970 Unknown [id number] 2.16.840.1.797804.3.579.2. 593 1970 Unknown [id number] 2.16.840.1.264390.3.579.2. 593 1970 Unknown [id number] 2.16.840.1.528217.3.579.2. 593 1970 Unknown [id number] 2.16.840.1.579638.3.579.2. 173 1970 Unknown [id number] 2.16.840.1.845598.3.579.2. 1259 1970 Unknown [id number] 2.16.840.1.139043.3.579.2. 9 1970 Unknown [id number] 2.16.840.1.664075.3.579.2. 1259 1970 Unknown [id number] 2.16.840.1.069961.3.579.2. 9 1970 Unknown [id number] 2.16.840.1.735494.3.579.2. 1259 1970 Unknown [id number] 2.16.840.1.784410.3.579.2. 9 1970 Unknown [id number] 2.16.840.1.150750.3.579.2. 9 1970 Unknown [id number] 2.16.840.1.382245.3.579.2. 9 1970 Unknown [id number] 2.16.840.1.230590.3.579.2. 1259 1959 Self-pay [id number] 1959 Unknown [id number] 1959 Unknown [id number] 1959 Unknown [id number] Unknown [id number] Social History Date Type Detail Facility Tobacco smoking stat [facility] Tobacco smoking consumption unknown [facility] Start: 1970 Sex Assigned At Female [facility] Start: 06-27-1989 End: 06-26-2023 Tobacco smoking status MDIS Smokes tobacco daily [facility] Start: 12-03-2021 Tobacco use and exposure User of smo keless tobacco [facility] Start: 12-03-2021 Alcohol intake Lifetime non-d mar (finding) [facility] Start: 12-03-2021 History SDOH Alcohol Frequency 1 [facility] Start: 11-23-2021 End: 12-03-2021 Exposure to SARS-CoV-2 (event) Unable to assess [facility] Start: 12-12-2021 End: 02-02-2022 Exposure to SARS-CoV-2 (event) Not sure [facility] Start: 12-03-2021 End: 05-24-2023 History of Social function [facility] Start: 12-03-2021 End: 05-24-2023 Tobacco use panel [facility] National Score (1-10 0), lower number is lower risk 60 [facility] Start: 10-30-2021 Gender identity Identifies as female gender (finding) [facility] Start: 06-27-1989 History of tobacco use Cigarette Smo ker [facility] Start: 12-12-2023 End: 03-28-2024 Alcoholic beverage intake Current drinker [...] Oral, Daily, Discontinue the 30mg script HYDROcodone-acetaminophen ([place]) 5-325 MG tablet 1 tablet, Oral, Every [...] Function and dilation of urethra, Dr Hearn, [facility] family history includes Autism in her grandson; [...] yearly and prn documented in this encounter [facility] 03-28-2024 Instructions Whit Sorensen NP - 03/28/2024 5:00 PM EDT Start taking trazodone 50mg once at night for 5 days, then every other night for 5 doses, then start elavil (amitriptyline) 10mg dose at bedtime documented in this encounter [facility] 03-26-2024 History of Presen t illness Narrative [...] Oral, Daily, Discontinue the 30mg script HYDROcodone-acetaminophen ([place]) 5-325 MG tablet 1 tablet, Oral, Every [...] Function and dilation of urethra, Dr Hearn, [facility] family history includes Autism in her grandson; [...] for today and tomorrow Relevant Medications HYDROcodone-acetaminophen ([place]) 5-325 MG tablet predniSONE (Deltasone) 10 MG tablet Morbid obesity due to excess calories (CMS/HCC) Multiple thyroid nodules (CMS/HCC) Elevated blood pressure, situational Likely secondary to her pain levels today Will monitor documented in this encounter [facility] 03-08-2024 History of Presen t illness Narrative [...] Function and dilation of urethra, Dr Hearn, [facility] family history includes Autism in her grandson; [...] tachycardia, unspecified (CMS/HCC) documented in this encounter [facility] 02-22-2024 History of Presen t illness Narrative [...] Visit: 4 weeks documented in this encounter [facility] 12-19-2023 Telephone encounter Note Tell pt I changed the dose of there cholesterol pill to 20mg daily Recheck labs in 8 weeks [place] [facility] 12-19-2023 Miscellaneous Notes Tell pt I changed the dose of there cholesterol pill to 20mg daily Recheck labs in 8 weeks [place] documented in this encounter [facility] 04-16-2022 Note EXAMINATION: XR CHES [...] authenticated by: NAOMIE THEODORE Date: 2022-04-16 09:47 [facility] 02-24-2022 Miscellaneous Notes Initial Office Visit [...] will have my daughter take me to [facility] ER and call you tomorrow with an update. Can we call patient and get current description of her pain. The purpose of trial of LESI is to see if this would improve her current pain symptoms Yasmeen Azul APRN.NATACHA documented in this encounter [facility] 02-02-2022 [...] encounter [facility] 01-13-2022 Note HNO ID: [id number] Author: ASIF Magana Service: Radiology Author Type: Computer Network And Systems Engineer Type: Progress Notes Filed: 01/13/2022 2:51 PM [...] ASIF Magana January 13, 2022 2:50 PM [facility] 01-13-2022 History of Presen t illness [...] encounter [facility] 12-21-2021 Note HNO ID: [id number] Author: CAMILO AnguloR) Service: ? Author Type: [...] 21, 2021 TIME: 1:20 PM PAGER/CONTACT #: [facility] 12-21-2021 History of Presen t illness Narrative RADIOLOGY SERVICE PROGRESS NOTE DATE OF SERVICE: December 21, 2021 TIME OF SERVICE: 1:20 pm EVENT: EXAM/PROCEDURE NOT COMPLETED - Patient became claustrophobic, reaction was: Moderate. ADDITIONAL EVENT DETAILS: no images acquired for mri t,l-spine SIGNATURE: RT Adele(R) PATIENT NAME: aNto Short DATE: December 21, 2021 TIME: 1:20 PM PAGER/CONTACT #: documented in this encounter [facility] 12-03-2021 Note HNO ID: [id number] Author: RT Elda(R) Service: ? Author Type: [...] Marie, RT(R) December 03, 2021 4:38 PM [facility] 12-03-2021 Note HNO ID: [id number] Author: Lazarus Johnson MD Service: ? Author Type: Physician Type: Progress Notes Filed: 12/14/2021 9:39 AM Note Text: SUBJECTIVE: Ms. Short a 51 year old female referred by Self Referred presents with the complaint of low back pain. She wants to know if she is a candidate for SCS (saw [employer] website). Patient reports the date of onset [...] supervised home exercise program (HEP): No 5. Band Cutter: No Passive conservative therapy lasting 6 weeks in the last six months (see below) 1. Medical devises: No 2. Acupuncture: No 3. Tens unit: No 4. Prescription pain medication: No 5. 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 EXAMINATION: [id number]: Scoliosis: No Pelvic Tilt: No Leg Length [...] normal and s (more content not included)... [facility] 12-03-2021 History of Presen t illness [...] this encounter [facility] 12-03-2021 History of Presen t illness Narrative SUBJECTIVE: Ms. Short a 51 year old female referred by Self Referred presents with the complaint of low back pain. She wants to know if she is a candidate for SCS (saw [employer] website). Patient reports the date of onset [...] supervised home exercise program (HEP): No 5. Band Cutter: No Passive conservative therapy lasting 6 weeks in the last six months (see below) 1. Medical devises: No 2. Acupuncture: No 3. Tens unit: No 4. Prescription pain medication: No 5. 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 EXAMINATION: [id number]: Scoliosis: No Pelvic Tilt: No Leg Length [...] DDD. She has seen Dr. Montero in [place] - with no improvement after LESI and radiof frequency with no effect. Has had PT different series since 2017. She saw Dr. Hidalgo in [place] who referred to Dr. Perez because of [...] which included preparing to see the patient, [id number] patient care, completing clinical documentation, obtaining and/or [...] which you are scheduled to see at [facility] on 12/03/2021 1) Have you been [...] need to reschedule please call us at [phone]. Left VM with new patient policy advised [...] by: ZACH PEREZ Date: 2021-11-19 16:43 [facility] Evaluation note Diagnosis Degeneration of lumbar or lumbosacral intervertebral disc- Primary Radiculopathy of lumbar region Thoracic or lumbosacral neuritis or radiculitis, unspecified Radicular pain of left lower extremity Thoracic or lumbosacral neuritis or radiculitis, unspecified Discogenic low back pain Lumbago Hyperglycemia Other abnormal glucose History of fusion of cervical spine Arthrodesis status [facility] Diagnosis Radiculopathy of lumbar region- Primary Thoracic or lumbosacral neuritis or radiculitis, unspecified Lumbar disc herniation Displacement of lumbar intervertebral disc without myelopathy [facility] Diagnosis Lumbar disc herniation- Primary Displacement [...] Arthrodesis status [facility] Diagnosis Radiculopathy of lumbar region Thoracic or lumbosacral neuritis or radiculitis, unspecified Degeneration of lumbar or lumbosacral intervertebral disc Radicular pain of left lower extremity Thoracic or lumbosacral neuritis or radiculitis, unspecified Discogenic low back pain Lumbago [facility] Diagnosis Encounter for annual wellness visit- Primary Migraine with aura and without status migrainosus, not intractable ([facility]/HCC) Primary insomnia Persistent disorder of initiating or maintaining sleep Pre-operative clearance Unspecified pre-operative examination Elevated blood pressure, situational Morbid obesity due to excess calories (CMS/HCC) Current smoker documented in this encounter [facility]* Diagnosis Anxiety and depression ([facility]/HCC)- Primary Gastroesophageal reflux disease, unspecified whether esophagitis present Hypothyroidism (acquired) ([facility]/HCC) Unspecified hypothyroidism Yeast dermatitis Wheezing Acute non-recurrent maxillary sinusitis Antibiotic-induced yeast infection Hypothyroidism (acquired) ([facility])- Primary Unspecified hypothyroidism Anxiety and depression ([facility]) Mixed hyperlipidemia ([facility]) Mixed hyperlipidemia Primary insomnia Persistent disorder of initiating or maintaining sleep Hypothyroidism (acquired) ([facility])- Primary Unspecified hypothyroidism 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[facility]) Chronic lymphocytic thyroiditis Morbid obesity due to excess calories ([facility]) Gastroesophageal reflux disease, unspecified whether esophagitis present Hypothyroidism (acquired) ([facility])- Primary Unspecified hypothyroidism Morbid obesity due to excess calories ([facility]) Yeast dermatitis Encounter for screening mammogram for malignant neoplasm of breast Tinea pedis, recurrent Dermatophytosis of foot Lumbar radiculopathy- Primary Thoracic or lumbosacral neuritis or radiculitis, unspecified Morbid obesity due to excess calories ([facility]/HCC) Hypothyroidism (acquired) ([facility])- Primary Unspecified hypothyroidism Major depressive disorder, recurrent, moderate ([facility]/HCC) Major depressive disorder, recurrent episode, moderate Supraventricular tachycardia, unspecified ([facility]/HCC) Morbid obesity due to excess calories ([facility]/HCC) Cervical radiculopathy- Primary Brachial neuritis or radiculitis nos Elevated blood pressure, situational Morbid obesity due to excess calories ([facility]/HCC) Multiple thyroid nodules ([facility]) Nontoxic multinodular goiter Encounter for annual wellness visit- Primary Migraine with aura and without status migrainosus, not intractable ([facility]/HCC) Primary insomnia Persistent disorder of initiating or maintaining sleep Pre-operative clearance Unspecified pre-operative examination Elevated blood pressure, situational Morbid obesity due to excess calories ([facility]) Current smoker Oral thrush- Primary Candidiasis of mouth [facility] Diagnosis Anxiety and depression ([facility])- Primary Gastroesophageal reflux disease, unspecified whether esophagitis present Hypothyroidism (acquired) ([facility]) Unspecified hypothyroidism Yeast dermatitis Wheezing Acute non-recurrent maxillary sinusitis Antibiotic-induced yeast infection Hypothyroidism (acquired) ([facility])- Primary Unspecified hypothyroidism Anxiety and depression ([facility]) Mixed hyperlipidemia ([facility]) Mixed hyperlipidemia Primary insomnia Persistent disorder of initiating or maintaining sleep Hypothyroidism (acquired) ([facility])- Primary Unspecified hypothyroidism 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[facility]) Chronic lymphocytic thyroiditis Morbid obesity due to excess calories ([facility]) Gastroesophageal reflux disease, unspecified whether esophagitis present Hypothyroidism (acquired) ([facility])- Primary Unspecified hypothyroidism Morbid obesity due to excess calories ([facility]) Yeast dermatitis Encounter for screening mammogram for malignant neoplasm of breast Tinea pedis, recurrent Dermatophytosis of foot Lumbar radiculopathy- Primary Thoracic or lumbosacral neuritis or radiculitis, unspecified Morbid obesity due to excess calories ([facility]) [place]) [place] Primary Unspecified hypothyroidism Major depressive disorder, recurrent, moderate ([facility]) Major depressive disorder, recurrent episode, moderate Supraventricular tachycardia, unspecified ([facility]) Morbid obesity due to excess calories ([facility]) Cervical radiculopathy- Primary Brachial neuritis or radiculitis nos Elevated blood pressure, situational Morbid obesity due to excess calories ([facility]) Multiple thyroid nodules [place] Nontoxic multinodular goiter Encounter for annual wellness visit- Primary Migraine with aura and without status migrainosus, not intractable ([facility]) Primary insomnia Persistent disorder of initiating or maintaining sleep Pre-operative clearance Unspecified pre-operative examination Elevated blood pressure, situational Morbid obesity due to excess calories ([facility]) Current smoker Gastroesophageal reflux disease, unspecified whether esophagitis present documented in this encounter [facility] HealthcareEvaluation note* Diagnosis Anxiety and depression ([facility])- Primary Gastroesophageal reflux disease, unspecified whether esophagitis present Hypothyroidism (acquired) ([facility]) Unspecified hypothyroidism Yeast dermatitis Wheezing Acute non-recurrent maxillary sinusitis Antibiotic-induced yeast infection Hypothyroidism (acquired) ([facility])- Primary Unspecified hypothyroidism Anxiety and depression ([facility] Mixed hyperlipidemia ([facility]) Mixed hyperlipidemia Primary insomnia Persistent disorder of initiating or maintaining sleep Hypothyroidism (acquired) ([facility])- Primary Unspecified hypothyroidism 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[facility]) Chronic lymphocytic thyroiditis Morbid obesity due to excess calories ([facility]) Gastroesophageal reflux disease, unspecified whether esophagitis present Hypothyroidism (acquired) ([facility])- Primary Unspecified hypothyroidism Morbid obesity due to excess calories ([facility]) Yeast dermatitis Encounter for screening mammogram for malignant neoplasm of breast Tinea pedis, recurrent Dermatophytosis of foot Lumbar radiculopathy- Primary Thoracic or lumbosacral neuritis or radiculitis, unspecified Morbid obesity due to excess calories ([facility]) Hypothyroidism (acquired) ([facility])- Primary Unspecified hypothyroidism Major depressive disorder, recurrent, moderate ([facility]) Major depressive disorder, recurrent episode, moderate Supraventricular tachycardia, unspecified ([facility]) Morbid obesity due to excess calories ([facility]) Cervical radiculopathy- Primary Brachial neuritis or radiculitis nos Elevated blood pressure, situational Morbid obesity due to excess calories ([facility]) Multiple thyroid nodules ([facility]) Nontoxic multinodular goiter Encounter for annual wellness visit- Primary Migraine with aura and without status migrainosus, not intractable ([facility]) Primary insomnia Persistent disorder of initiating or maintaining sleep Pre-operative clearance Unspecified pre-operative examination Elevated blood pressure, situational Morbid obesity due to excess calories ([facility]) Current smoker Cervical radiculopathy- Primary Brachial neuritis or radiculitis nos Cervical myelopathy ([facility]) Cervical spondylosis with myelopathy documented in this encounter [facility] HealthcareEvaluation note* Diagnosis Anxiety and depression ([facility])- Primary Gastroesophageal reflux disease, unspecified whether esophagitis present Hypothyroidism (acquired) ([facility]) Unspecified hypothyroidism Yeast dermatitis Wheezing Acute non-recurrent maxillary sinusitis Antibiotic-induced yeast infection Hypothyroidism (acquired) ([facility])- Primary Unspecified hypothyroidism Anxiety and depression ([facility] Mixed hyperlipidemia ([facility]) Mixed hyperlipidemia Primary insomnia Persistent disorder of initiating or maintaining sleep Hypothyroidism (acquired) ([facility])- Primary Unspecified hypothyroidism 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[facility]) Chronic lymphocytic thyroiditis Morbid obesity due to excess calories ([facility]) Gastroesophageal reflux disease, unspecified whether esophagitis present Hypothyroidism (acquired) ([facility])- Primary Unspecified hypothyroidism Morbid obesity due to excess calories ([facility]) Yeast dermatitis Encounter for screening mammogram for malignant neoplasm of breast Tinea pedis, recurrent Dermatophytosis of foot Lumbar radiculopathy- Primary Thoracic or lumbosacral neuritis or radiculitis, unspecified Morbid obesity due to excess calories ([facility]) Hypothyroidism (acquired) ([facility])- Primary Unspecified hypothyroidism Major depressive disorder, recurrent, moderate ([facility]) Major depressive disorder, recurrent episode, moderate Supraventricular tachycardia, unspecified ([facility]) Morbid obesity due to excess calories ([facility]) Cervical radiculopathy- Primary Brachial neuritis or radiculitis nos Elevated blood pressure, situational Morbid obesity due to excess calories ([facility] Multiple thyroid nodules ([facility]) Nontoxic multinodular goiter Encounter for annual wellness visit- Primary Migraine with aura and without status migrainosus, not intractable ([facility]) Primary insomnia Persistent disorder of initiating or maintaining sleep Pre-operative clearance Unspecified pre-operative examination Elevated blood pressure, situational Morbid obesity due to excess calories ([facility]) Current smoker Hypothyroidism (acquired) ([facility]) Unspecified hypothyroidism documented in this encounter [facility] HealthcareEvaluation note* Diagnosis Anxiety and depression ([facility])- Primary Gastroesophageal reflux disease, unspecified whether esophagitis present Hypothyroidism (acquired) ([facility]) Unspecified hypothyroidism Yeast dermatitis Wheezing Acute non-recurrent maxillary sinusitis Antibiotic-induced yeast infection Hypothyroidism (acquired) ([facility])- Primary Unspecified hypothyroidism Anxiety and depression ([facility] Mixed hyperlipidemia ([facility]) Mixed hyperlipidemia Primary insomnia Persistent disorder of initiating or maintaining sleep Hypothyroidism (acquired) ([facility])- Primary Unspecified hypothyroidism 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[facility]) Chronic lymphocytic thyroiditis Morbid obesity due to excess calories ([facility]) Gastroesophageal reflux disease, unspecified whether esophagitis present Hypothyroidism (acquired) ([facility])- Primary Unspecified hypothyroidism Morbid obesity due to excess calories ([facility]) Yeast dermatitis Encounter for screening mammogram for malignant neoplasm of breast Tinea pedis, recurrent Dermatophytosis of foot Lumbar radiculopathy- Primary Thoracic or lumbosacral neuritis or radiculitis, unspecified Morbid obesity due to excess calories ([facility]) Hypothyroidism (acquired) ([facility])- Primary Unspecified hypothyroidism Major depressive disorder, recurrent, moderate ([facility]) Major depressive disorder, recurrent episode, moderate Supraventricular tachycardia, unspecified ([facility]) Morbid obesity due to excess calories ([facility]) Cervical radiculopathy- Primary Brachial neuritis or radiculitis nos Elevated blood pressure, situational Morbid obesity due to excess calories ([facility] Multiple thyroid nodules ([facility]) Nontoxic multinodular goiter Encounter for annual wellness visit- Primary Migraine with aura and without status migrainosus, not intractable ([facility]) Primary insomnia Persistent disorder of initiating or maintaining sleep Pre-operative clearance Unspecified pre-operative examination Elevated blood pressure, situational Morbid obesity due to excess calories ([facility]) Current smoker Muscle spasm- Primary Spasm of muscle documented in this encounter [facility] HealthcareEvaluation note* Diagnosis Hypothyroidism (acquired) ([facility])- Primary Unspecified hypothyroidism documented in this encounter [facility]Evaluation note* Diagnosis Hypothyroidism (acquired[facility] ([facility])- Primary Unspecified hypothyroidism Major depressive disorder, recurrent, moderate (HCC) ([facility]) Major depressive disorder, recurrent episode, moderate Supraventricular tachycardia, unspecified ([facility]) Morbid obesity due to excess calories ([facility]) documented in this encounter [facility]* Diagnosis [facility]xiety and depression ([facility])- Primary Gastroesophageal reflux disease, unspecified whether esophagitis present Hypothyroidism (acquired) ([facility]) Unspecified hypothyroidism Yeast dermatitis Wheezing Acute non-recurrent maxillary sinusitis Antibiotic-induced yeast infection Hypothyroidism (acquired) ([facility])- Primary Unspecified hypothyroidism Anxiety and depression ([facility] Mixed hyperlipidemia ([facility]) Mixed hyperlipidemia Primary insomnia Persistent disorder of initiating or maintaining sleep Hypothyroidism (acquired) ([facility])- Primary Unspecified hypothyroidism 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[facility]) Chronic lymphocytic thyroiditis Morbid obesity due to excess calories ([facility]) Gastroesophageal reflux disease, unspecified whether esophagitis present Hypothyroidism (acquired) ([facility])- Primary Unspecified hypothyroidism Morbid obesity due to excess calories ([facility]) Yeast dermatitis Encounter for screening mammogram for malignant neoplasm of breast Tinea pedis, recurrent Dermatophytosis of foot Lumbar radiculopathy- Primary Thoracic or lumbosacral neuritis or radiculitis, unspecified Morbid obesity due to excess calories ([facility]) Hypothyroidism (acquired[facility] ([facility])- Primary Unspecified hypothyroidism Major depressive disorder, recurrent, moderate ([facility]) Major depressive disorder, recurrent episode, moderate Supraventricular tachycardia, unspecified ([facility]) Morbid obesity due to excess calories ([facility]) Cervical radiculopathy- Primary Brachial neuritis or radiculitis nos Elevated blood pressure, situational Morbid obesity due to excess calories (CMS/HCC) Multiple thyroid nodules ([facility]) Nontoxic multinodular goiter Encounter for annual wellness visit- Primary Migraine with aura and without status migrainosus, not intractable ([facility]) Primary insomnia Persistent disorder of initiating or maintaining sleep Pre-operative clearance Unspecified pre-operative examination Elevated blood pressure, situational Morbid obesity due to excess calories ([facility]) Current smoker Spinal stenosis of lumbar region, unspecified whether neurogenic claudication present- Primary Migraine with aura and without status migrainosus, not intractable ([facility] Primary insomnia Persistent disorder of initiating or maintaining sleep Mixed hyperlipidemia ([facility] Mixed hyperlipidemia Anxiety and depression ([facility]) Hypothyroidism (acquired) ([facility]) Unspecified hypothyroidism Gastroesophageal reflux disease, unspecified whether [...] Diagnosis Morbid obesity due to excess calories ([facility]/HCC) documented in this encounter [facility]* Diagnosis Mixed hyperlipidemia ([facility]/HCC) Mixed hyperlipidemia Hypothyroidism (acquired) ([facility]) Unspecified hypothyroidism documented in this encounter [facility]* Diagnosis Primary insomnia Persistent disorder of initiating or maintaining sleep documented in this encounter [facility]* Diagnosis Mixed hyperlipidemia (CMS/HCC) Mixed hyperlipidemia documented in this encounter [facility]* Diagnosis Cervical radiculopathy- Primary Brachial neuritis or radiculitis nos Elevated blood pressure, situational Morbid obesity due to excess calories ([facility]/HCC) Multiple thyroid nodules ([facility]) Nontoxic multinodular goiter documented in this encounter [facility]* Diagnosis Anxiety and depression ([facility])- Primary Gastroesophageal reflux disease, unspecified whether esophagitis present Hypothyroidism (acquired) ([facility]) Unspecified hypothyroidism Yeast dermatitis Wheezing Acute non-recurrent maxillary sinusitis Antibiotic-induced yeast infection Hypothyroidism (acquired) ([facility])- Primary Unspecified hypothyroidism Anxiety and depression ([facility] Mixed hyperlipidemia ([facility]) Mixed hyperlipidemia Primary insomnia Persistent disorder of initiating or maintaining sleep Hypothyroidism (acquired) ([facility])- Primary Unspecified hypothyroidism 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[facility]) Chronic lymphocytic thyroiditis Morbid obesity due to excess calories ([facility]) Gastroesophageal reflux disease, unspecified whether esophagitis present Hypothyroidism (acquired) ([facility])- Primary Unspecified hypothyroidism Morbid obesity due to excess calories ([facility]) Yeast dermatitis Encounter for screening mammogram for malignant neoplasm of breast Tinea pedis, recurrent Dermatophytosis of foot Lumbar radiculopathy- Primary Thoracic or lumbosacral neuritis or radiculitis, unspecified Morbid obesity due to excess calories ([facility]) Hypothyroidism (acquired[facility] ([facility])- Primary Unspecified hypothyroidism Major depressive disorder, recurrent, moderate ([facility]) Major depressive disorder, recurrent episode, moderate Supraventricular tachycardia, unspecified ([facility]) Morbid obesity due to excess calories ([facility] [address]/[facility]) Cervical radiculopathy- Primary Brachial neuritis or radiculitis nos Elevated blood pressure, situational Morbid obesity due to excess calories ([facility] [address]) Multiple thyroid nodules ([facility] [address]) Nontoxic multinodular goiter Encounter for annual wellness visit- Primary Migraine with aura and without status migrainosus, not intractable ([facility] [address]) Primary insomnia Persistent disorder of initiating or maintaining sleep Pre-operative clearance Unspecified pre-operative examination Elevated blood pressure, situational Morbid obesity due to excess calories ([facility]) Current smoker Hypothyroidism (acquired) ([facility] [address]) [facility]specified hypothyroidism documented in this encounter [facility] HealthcareEvaluation note* Diagnosis Anxiety and depression ([facility] [address])- Primary Gastroesophageal reflux disease, unspecified whether esophagitis present Hypothyroidism (acquired) ([facility]) Unspecified hypothyroidism Yeast dermatitis Wheezing Acute non-recurrent maxillary sinusitis Antibiotic-induced yeast infection Hypothyroidism (acquired) ([facility] [address])- Primary Unspecified hypothyroidism Anxiety and depression ([facility] [address] Mixed hyperlipidemia ([facility] [address]) Mixed hyperlipidemia Primary insomnia Persistent disorder of initiating or maintaining sleep Hypothyroidism (acquired) ([facility])- Primary Unspecified hypothyroidism 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[facility]) Chronic lymphocytic thyroiditis Morbid obesity due to excess calories ([facility] [address]) Gastroesophageal reflux disease, unspecified whether esophagitis present Hypothyroidism (acquired) ([facility] [address])- Primary Unspecified hypothyroidism Morbid obesity due to excess calories ([facility]) Yeast dermatitis Encounter for screening mammogram for malignant neoplasm of breast Tinea pedis, recurrent Dermatophytosis of foot Lumbar radiculopathy- Primary Thoracic or lumbosacral neuritis or radiculitis, unspecified Morbid obesity due to excess calories ([facility] [address]) Hypothyroidism (acquired) ([facility] [address])- Primary Unspecified hypothyroidism Major depressive disorder, recurrent, moderate ([facility] [address]) Major depressive disorder, recurrent episode, moderate Supraventricular tachycardia, unspecified ([facility]) Morbid obesity due to excess calories ([facility] [address]) Cervical radiculopathy- Primary Brachial neuritis or radiculitis nos Elevated blood pressure, situational Morbid obesity due to excess calories ([facility] [address] Multiple thyroid nodules ([facility] [address]) Nontoxic multinodular goiter Encounter for annual wellness visit- Primary Migraine with aura and without status migrainosus, not intractable ([facility] [address]) Primary insomnia Persistent disorder of initiating or maintaining sleep Pre-operative clearance Unspecified pre-operative examination Elevated blood pressure, situational Morbid obesity due to excess calories ([facility] [address]) Current smoker Hypothyroidism (acquired) ([facility])- Primary Unspecified hypothyroidism documented in this encounter [facility] HealthcareEvaluation note* Diagnosis Anxiety and depression ([facility] [address])- Primary Gastroesophageal reflux disease, unspecified whether esophagitis present Hypothyroidism (acquired) ([facility] [address]) Unspecified hypothyroidism Yeast dermatitis Wheezing Acute non-recurrent maxillary sinusitis Antibiotic-induced yeast infection Hypothyroidism (acquired) ([facility])- Primary Unspecified hypothyroidism Anxiety and depression ([facility] Mixed hyperlipidemia ([facility] [address]) Mixed hyperlipidemia Primary insomnia Persistent disorder of initiating or maintaining sleep Hypothyroidism (acquired) ([facility])- Primary Unspecified hypothyroidism 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[facility]) Chronic lymphocytic thyroiditis Morbid obesity due to excess calories ([facility]) Gastroesophageal reflux disease, unspecified whether esophagitis present Hypothyroidism (acquired) ([facility])- Primary Unspecified hypothyroidism Morbid obesity due to excess calories ([facility]) Yeast dermatitis Encounter for screening mammogram for malignant neoplasm of breast Tinea pedis, recurrent Dermatophytosis of foot Lumbar radiculopathy- Primary Thoracic or lumbosacral neuritis or radiculitis, unspecified Morbid obesity due to excess calories ([facility] [address]) Hypothyroidism (acquired) ([facility] [address])- Primary Unspecified hypothyroidism Major depressive disorder, recurrent, moderate ([facility]) Major depressive disorder, recurrent episode, moderate Supraventricular tachycardia, unspecified ([facility]) Morbid obesity due to excess calories ([facility] [address]) Cervical radiculopathy- Primary Brachial neuritis or radiculitis nos Elevated blood pressure, situational Morbid obesity due to excess calories ([facility]) Multiple thyroid nodules ([facility] [address]) Nontoxic multinodular goiter Encounter for annual wellness visit- Primary Migraine with aura and without status migrainosus, not intractable ([facility]) Primary insomnia Persistent disorder of initiating or maintaining sleep Pre-operative clearance Unspecified pre-operative examination Elevated blood pressure, situational Morbid obesity due to excess calories ([facility] [address]) Current smoker Anxiety and depression ([facility] [address]) documented in this encounter [facility] HealthcareEvaluation note* Diagnosis Anxiety and depression ([facility] [address])- Primary Gastroesophageal reflux disease, unspecified whether esophagitis present Hypothyroidism (acquired) ([facility]) Unspecified hypothyroidism Yeast dermatitis Wheezing Acute non-recurrent maxillary sinusitis Antibiotic-induced yeast infection Hypothyroidism (acquired) ([facility] [address])- Primary Unspecified hypothyroidism Anxiety and depression ([facility] Mixed hyperlipidemia ([facility]) Mixed hyperlipidemia Primary insomnia Persistent disorder of initiating or maintaining sleep Hypothyroidism (acquired) ([facility] [address])- Primary Unspecified hypothyroidism 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[facility] [address]) Chronic lymphocytic thyroiditis Morbid obesity due to excess calories ([facility]) Gastroesophageal reflux disease, unspecified whether esophagitis present Hypothyroidism (acquired) ([facility])- Primary Unspecified hypothyroidism Morbid obesity due to excess calories ([facility] [address]) Yeast dermatitis Encounter for screening mammogram for malignant neoplasm of breast Tinea pedis, recurrent Dermatophytosis of foot Lumbar radiculopathy- Primary Thoracic or lumbosacral neuritis or radiculitis, unspecified Morbid obesity due to excess calories ([facility] [address]) Hypothyroidism (acquired) ([facility] [address])- Primary Unspecified hypothyroidism Major depressive disorder, recurrent, moderate ([facility]) Major depressive disorder, recurrent episode, moderate Supraventricular tachycardia, unspecified ([facility] [address]) Morbid obesity due to excess calories ([facility]) Cervical radiculopathy- Primary Brachial neuritis or radiculitis nos Elevated blood pressure, situational Morbid obesity due to excess calories ([facility] [address] Multiple thyroid nodules ([facility]) Nontoxic multinodular goiter Encounter for annual wellness visit- Primary Migraine with aura and without status migrainosus, not intractable ([facility] [address]) Primary insomnia Persistent disorder of initiating or maintaining sleep Pre-operative clearance Unspecified pre-operative examination Elevated blood pressure, situational Morbid obesity due to excess calories ([facility] [address]) Current smoker URI with cough and congestion- Primary documented in this encounter [facility] HealthcareEvaluation note* Diagnosis Anxiety and depression ([facility])- Primary Gastroesophageal reflux disease, unspecified whether esophagitis present Hypothyroidism (acquired) ([facility] [address]) Unspecified hypothyroidism Yeast dermatitis Wheezing Acute non-recurrent maxillary sinusitis Antibiotic-induced yeast infection Hypothyroidism (acquired) ([facility] [address])- Primary Unspecified hypothyroidism Anxiety and depression ([facility] Mixed hyperlipidemia ([facility]) Mixed hyperlipidemia Primary insomnia Persistent disorder of initiating or maintaining sleep Hypothyroidism (acquired) ([facility] [address])- Primary Unspecified hypothyroidism 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[facility] [address]) Chronic lymphocytic thyroiditis Morbid obesity due to excess calories ([facility] [address]) Gastroesophageal reflux disease, unspecified whether esophagitis present Hypothyroidism (acquired) ([facility] [address])- Primary Unspecified hypothyroidism Morbid obesity due to excess calories ([facility] [address]) Yeast dermatitis Encounter for screening mammogram for malignant neoplasm of breast Tinea pedis, recurrent Dermatophytosis of foot Lumbar radiculopathy- Primary Thoracic or lumbosacral neuritis or radiculitis, unspecified Morbid obesity due to excess calories ([facility] [address]) Hypothyroidism (acquired) ([facility] [address])- Primary Unspecified hypothyroidism Major depressive disorder, recurrent, moderate ([facility] [address]) Major depressive disorder, recurrent episode, moderate Supraventricular tachycardia, unspecified ([facility] [address]) Morbid obesity due to excess calories ([facility] [address]) Cervical radiculopathy- Primary Brachial neuritis or radiculitis nos Elevated blood pressure, situational Morbid obesity due to excess calories ([facility] [address]) Multiple thyroid nodules ([facility] [address]) Nontoxic multinodular goiter Encounter for annual wellness visit- Primary Migraine with aura and without status migrainosus, not intractable ([facility] [address]) Primary insomnia Persistent disorder of initiating or maintaining sleep Pre-operative clearance Unspecified pre-operative examination Elevated blood pressure, situational Morbid obesity due to excess calories ([facility] [address]) Current smoker Acute non-recurrent sinusitis of other sinus- Primary documented in this encounter [facility]* Diagnosis Anxiety [facility] depression ([facility] [address])- Primary Gastroesophageal reflux disease, unspecified whether esophagitis present Hypothyroidism (acquired) ([facility] [address]) Unspecified hypothyroidism Yeast dermatitis Wheezing Acute non-recurrent maxillary sinusitis Antibiotic-induced yeast infection Hypothyroidism (acquired) ([facility] [address])- Primary Unspecified hypothyroidism Anxiety and depression ([facility] [address] Mixed hyperlipidemia ([facility] [address]) Mixed hyperlipidemia Primary insomnia Persistent disorder of initiating or maintaining sleep Hypothyroidism (acquired) ([facility] [address])- Primary Unspecified hypothyroidism 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[facility] [address]) Chronic lymphocytic thyroiditis Morbid obesity due to excess calories ([facility] [address]) Gastroesophageal reflux disease, unspecified whether esophagitis present Hypothyroidism (acquired) ([facility] [address])- Primary Unspecified hypothyroidism Morbid obesity due to excess calories ([facility] [address]) Yeast dermatitis Encounter for screening mammogram for malignant neoplasm of breast Tinea pedis, recurrent Dermatophytosis of foot Lumbar radiculopathy- Primary Thoracic or lumbosacral neuritis or radiculitis, unspecified Morbid obesity due to excess calories ([facility] [address]) Hypothyroidism (acquired) ([facility] [address])- Primary Unspecified hypothyroidism Major depressive disorder, recurrent, moderate ([facility] [address]) Major depressive disorder, recurrent episode, moderate Supraventricular tachycardia, unspecified ([facility] [address]) Morbid obesity due to excess calories ([facility] [address]) Cervical radiculopathy- Primary Brachial neuritis or radiculitis nos Elevated blood pressure, situational Morbid obesity due to excess calories ([facility] [address]) Multiple thyroid nodules ([facility] [address]) Nontoxic multinodular goiter Encounter for annual wellness visit- Primary Migraine with aura and without status migrainosus, not intractable ([facility] [address]) Primary insomnia Persistent disorder of initiating or maintaining sleep Pre-operative clearance Unspecified pre-operative examination Elevated blood pressure, situational Morbid obesity due to excess calories ([facility] [address]) Current smoker Gastroesophageal reflux disease, unspecified whether esophagitis present documented in this encounter [facility]* Diagnosis Anxiety and depression ([facility] [address])- Primary Gastroesophageal reflux disease, unspecified whether esophagitis present Hypothyroidism (acquired) ([facility] [address]) Unspecified hypothyroidism Yeast dermatitis Wheezing Acute non-recurrent maxillary sinusitis Antibiotic-induced yeast infection Hypothyroidism (acquired) ([facility] [address])- Primary Unspecified hypothyroidism Anxiety and depression ([facility] [address] Mixed hyperlipidemia ([facility] [address]) Mixed hyperlipidemia Primary insomnia Persistent disorder of initiating or maintaining sleep Hypothyroidism (acquired) ([facility] [address])- Primary Unspecified hypothyroidism 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[facility]) Chronic lymphocytic thyroiditis Morbid obesity due to excess calories ([facility] [address]) Gastroesophageal reflux disease, unspecified whether esophagitis present Hypothyroidism (acquired) ([facility] [address])- Primary Unspecified hypothyroidism Morbid obesity due to excess calories ([facility]) Yeast dermatitis Encounter for screening mammogram for malignant neoplasm of breast Tinea pedis, recurrent Dermatophytosis of foot Lumbar radiculopathy- Primary Thoracic or lumbosacral neuritis or radiculitis, unspecified Morbid obesity due to excess calories ([facility]) Hypothyroidism (acquired) ([facility] [address])- Primary Unspecified hypothyroidism Major depressive disorder, recurrent, moderate ([facility]) Major depressive disorder, recurrent episode, moderate Supraventricular tachycardia, unspecified ([facility]) Morbid obesity due to excess calories ([facility] [address]) Cervical radiculopathy- Primary Brachial neuritis or radiculitis nos Elevated blood pressure, situational Morbid obesity due to excess calories ([facility] [address]) Multiple thyroid nodules ([facility] [address]) Nontoxic multinodular goiter Encounter for annual wellness visit- Primary Migraine with aura and without status migrainosus, not intractable ([facility]) Primary insomnia Persistent disorder of initiating or maintaining sleep Pre-operative clearance Unspecified pre-operative examination Elevated blood pressure, situational Morbid obesity due to excess calories ([facility]) Current smoker Migraine with aura and without status migrainosus, not intractable ([facility]) Primary insomnia Persistent disorder of initiating or maintaining sleep documented in this encounter [facility]* Diagnosis Anxiety and depression ([facility])- Primary Gastroesophageal reflux disease, unspecified whether esophagitis present Hypothyroidism (acquired) ([facility]) Unspecified hypothyroidism Yeast dermatitis Wheezing Acute non-recurrent maxillary sinusitis Antibiotic-induced yeast infection Hypothyroidism (acquired) ([facility])- Primary Unspecified hypothyroidism Anxiety and depression ([facility]/HCC) Mixed hyperlipidemia ([facility]) Mixed hyperlipidemia Primary insomnia Persistent disorder of initiating or maintaining sleep Hypothyroidism (acquired) ([facility])- Primary Unspecified hypothyroidism 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[facility]) Chronic lymphocytic thyroiditis Morbid obesity due to excess calories ([facility]) Gastroesophageal reflux disease, unspecified whether esophagitis present Hypothyroidism (acquired) ([facility])- Primary Unspecified hypothyroidism Morbid obesity due to excess calories ([facility]) Yeast dermatitis Encounter for screening mammogram for malignant neoplasm of breast Tinea pedis, recurrent Dermatophytosis of foot Lumbar radiculopathy- Primary Thoracic or lumbosacral neuritis or radiculitis, unspecified Morbid obesity due to excess calories ([facility]) Hypothyroidism (acquired) ([facility])- Primary Unspecified hypothyroidism Major depressive disorder, recurrent, moderate ([facility]) Major depressive disorder, recurrent episode, moderate Supraventricular tachycardia, unspecified ([facility]) Morbid obesity due to excess calories ([facility]) Cervical radiculopathy- Primary Brachial neuritis or radiculitis nos Elevated blood pressure, situational Morbid obesity due to excess calories ([facility]) Multiple thyroid nodules ([facility]) Nontoxic multinodular goiter Encounter for annual wellness visit- Primary Migraine with aura and without status migrainosus, not intractable ([facility]) Primary insomnia Persistent disorder of initiating or maintaining sleep Pre-operative clearance Unspecified pre-operative examination Elevated blood pressure, situational Morbid obesity due to excess calories ([facility]) Current smoker Mixed hyperlipidemia ([facility]) Mixed hyperlipidemia documented in this encounter [facility]* Diagnosis Anxiety and depression ([facility])- Primary Gastroesophageal reflux disease, unspecified whether esophagitis present Hypothyroidism (acquired) ([facility]) Unspecified hypothyroidism Yeast dermatitis Wheezing Acute non-recurrent maxillary sinusitis Antibiotic-induced yeast infection Hypothyroidism (acquired) ([facility])- Primary Unspecified hypothyroidism Anxiety and depression ([facility]) Mixed hyperlipidemia ([facility]) Mixed hyperlipidemia Primary insomnia Persistent disorder of initiating or maintaining sleep Hypothyroidism (acquired) ([facility])- Primary Unspecified hypothyroidism 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[facility]) Chronic lymphocytic thyroiditis Morbid obesity due to excess calories ([facility]) Gastroesophageal reflux disease, unspecified whether esophagitis present Hypothyroidism (acquired) ([facility])- Primary Unspecified hypothyroidism Morbid obesity due to excess calories ([facility]) Yeast dermatitis Encounter for screening mammogram for malignant neoplasm of breast Tinea pedis, recurrent Dermatophytosis of foot Lumbar radiculopathy- Primary Thoracic or lumbosacral neuritis or radiculitis, unspecified Morbid obesity due to excess calories ([facility]) Hypothyroidism (acquired) ([facility])- Primary Unspecified hypothyroidism Major depressive disorder, recurrent, moderate ([facility]) Major depressive disorder, recurrent episode, moderate Supraventricular tachycardia, unspecified ([facility]) Morbid obesity due to excess calories ([facility]) Cervical radiculopathy- Primary Brachial neuritis or radiculitis nos Elevated blood pressure, situational Morbid obesity due to excess calories ([facility] Multiple thyroid nodules ([facility]) Nontoxic multinodular goiter Encounter for annual wellness visit- Primary Migraine with aura and without status migrainosus, not intractable ([facility]) Primary insomnia Persistent disorder of initiating or maintaining sleep Pre-operative clearance Unspecified pre-operative examination Elevated blood pressure, situational Morbid obesity due to excess calories ([facility]) Current smoker Gastroesophageal reflux disease, unspecified whether esophagitis present Hypothyroidism (acquired) ([facility]) Unspecified hypothyroidism documented in this encounter [facility]* Diagnosis Anxiety and depression ([facility])- Primary Gastroesophageal reflux disease, unspecified whether esophagitis present Hypothyroidism (acquired) ([facility]) Unspecified hypothyroidism Yeast dermatitis Wheezing Acute non-recurrent maxillary sinusitis Antibiotic-induced yeast infection Hypothyroidism (acquired) ([facility])- Primary Unspecified hypothyroidism Anxiety and depression ([facility]) Mixed hyperlipidemia ([facility]) Mixed hyperlipidemia Primary insomnia Persistent disorder of initiating or maintaining sleep Hypothyroidism (acquired) ([facility])- Primary Unspecified hypothyroidism 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[facility]) Chronic lymphocytic thyroiditis Morbid obesity due to excess calories ([facility]) Gastroesophageal reflux disease, unspecified whether esophagitis present Hypothyroidism (acquired) ([facility])- Primary Unspecified hypothyroidism Morbid obesity due to excess calories ([facility]) Yeast dermatitis Encounter for screening mammogram for malignant neoplasm of breast Tinea pedis, recurrent Dermatophytosis of foot Lumbar radiculopathy- Primary Thoracic or lumbosacral neuritis or radiculitis, unspecified Morbid obesity due to excess calories ([facility]) Hypothyroidism (acquired) (CMS/HCC)- Primary Unspecified hypothyroidism Major [...] due to excess calories (CMS/HCC) Current smoker Anxiety and depression (CMS/HCC) documented in this encounter [facility]* Diagnosis Anxiety and depression- Primary Gastroesophageal reflux disease, unspecified whether esophagitis present Hypothyroidism (acquired) Unspecified hypothyroidism Yeast dermatitis Wheezing Acute non-recurrent maxillary sinusitis Antibiotic-induced yeast infection Hypothyroidism (acquired)- Primary Unspecified hypothyroidism Anxiety and depression Mixed hyperlipidemia Mixed hyperlipidemia Primary insomnia Persistent disorder of initiating or maintaining sleep Hypothyroidism (acquired)- Primary Unspecified hypothyroidism Other fatigue Ann's disease Chronic lymphocytic thyroiditis Morbid obesity due to excess calories (CMS-HCC) Gastroesophageal reflux disease, unspecified whether esophagitis present Hypothyroidism (acquired)- Primary Unspecified hypothyroidism Morbid obesity due to excess calories (CMS-HCC) Yeast dermatitis Encounter for screening mammogram for malignant neoplasm of breast Tinea pedis, recurrent Dermatophytosis of foot Lumbar radiculopathy- Primary Thoracic or lumbosacral neuritis or radiculitis, unspecified Morbid obesity due to excess calories (CMS-HCC) Hypothyroidism (acquired)- Primary Unspecified hypothyroidism Major depressive disorder, recurrent, moderate (HCC) Major depressive disorder, recurrent episode, moderate Supraventricular tachycardia, unspecified (HCC) Morbid obesity due to excess calories (CMS-HCC) Cervical radiculopathy- Primary Brachial neuritis or radiculitis nos Elevated blood pressure, situational Morbid obesity due to excess calories (CMS-HCC) Multiple thyroid nodules Nontoxic multinodular goiter Encounter for annual wellness visit- Primary Migraine with aura and without status migrainosus, not intractable Primary insomnia Persistent disorder of initiating or maintaining sleep Pre-operative clearance Unspecified pre-operative examination Elevated blood pressure, situational Morbid obesity due to excess calories (CMS-HCC) Current smoker Vertigo- Primary Dizziness and giddiness documented in this encounter [facility]* Diagnosis Anxiety and depression- Primary Gastroesophageal reflux disease, unspecified whether esophagitis present Hypothyroidism (acquired) Unspecified hypothyroidism Yeast dermatitis Wheezing Acute non-recurrent maxillary sinusitis Antibiotic-induced yeast infection Hypothyroidism (acquired)- Primary Unspecified hypothyroidism Anxiety and depression Mixed hyperlipidemia Mixed hyperlipidemia Primary insomnia Persistent disorder of initiating or maintaining sleep Hypothyroidism (acquired)- Primary Unspecified hypothyroidism Other fatigue Ann's disease Chronic lymphocytic thyroiditis Morbid obesity due to excess calories (CMS-HCC) Gastroesophageal reflux disease, unspecified whether esophagitis present Hypothyroidism (acquired)- Primary Unspecified hypothyroidism Morbid obesity due to excess calories (CMS-HCC) Yeast dermatitis Encounter for screening mammogram for malignant neoplasm of breast Tinea pedis, recurrent Dermatophytosis of foot Lumbar radiculopathy- Primary Thoracic or lumbosacral neuritis or radiculitis, unspecified Morbid obesity due to excess calories (CMS-HCC) Hypothyroidism (acquired)- Primary Unspecified hypothyroidism Major depressive disorder, recurrent, moderate (HCC) Major depressive disorder, recurrent episode, moderate Supraventricular tachycardia, unspecified (HCC) Morbid obesity due to excess calories (CMS-HCC) Cervical radiculopathy- Primary Brachial neuritis or radiculitis nos Elevated blood pressure, situational Morbid obesity due to excess calories (CMS-HCC) Multiple thyroid nodules Nontoxic multinodular goiter Encounter for annual wellness visit- Primary Migraine with aura and without status migrainosus, not intractable Primary insomnia Persistent disorder of initiating or maintaining sleep Pre-operative clearance Unspecified pre-operative examination Elevated blood pressure, situational Morbid obesity due to excess calories (CMS-HCC) Current smoker Vertigo Dizziness and giddiness documented in this encounter [facility] for [...] SPINE LUMBOSACRAL 2/3 VIEWS Lazarus Johnson MD [address] [facility] [address] Xr Imaging Referral ID Status Reason Start Date Expiration Date V isits Requested Visits Authorized [id number] Closed Auto-Generate d Referral 12/03/2021 01/02/2023 1 1 [facility] for visit Narrative* Consultation (Routine) - Closed Specialty Diagnoses / Procedures Referred By Contac t Referred To Contact Dermatology Diagnoses Tinea pedis, recurrent Procedures [place] OFFICE/OUTPATIENT NEW HIGH MDM 60 MINUTES Whit Sorensen, NUNU [address] [place] [address] Campbell Bach PA [address] [place] [address] Referral ID Status Reason Start Date Expiration Date V isits Requested Visits Authorized [id number] Closed Specialty Services Required 01/05/2024 07/03/2024 1 [...] LUMBAR W/O CONTRAST MATERIAL Lazarus Johnson MD [address] [place] [address] Mr Imaging Referral ID Status Reason Start Date Expiration Date Visits Requested Visits Authorized [id number] Authorized Auto-Generat ed Referral 12/03/2021 12/21/2021 1 1 Specialty Diagnoses / Procedures Referred By Contac t Referred To Contact MR IMAGING Diagnoses Radiculopathy of lumbar region Procedures MRI THORACIC SPINE WO IVCON MRI SPINAL CANAL THORACIC W/O CONTRAST MATRL Lazarus Johnson MD [address] [place] [address] Mr Imaging Referral ID Status Reason Start Date Expiration Date Visits Requested Visits Authorized [id number] Authorized Auto-Generat ed Referral 12/03/2021 12/21/2021 1 1 Specialty Diagnoses / Procedures Referred By Contac t Referred To Contact XR IMAGING Diagnoses Radiculopathy of lumbar region Degeneration of lumbar or lumbosacral intervertebral disc Radicular pain of left lower extremity Discogenic low back pain Procedures XR LUMBAR GENERAL 3V AP/LAT/L5-S1 RADEX SPINE LUMBOSACRAL 2/3 VIEWS Lazarus Johnson MD [address] [place] [address] Xr Imaging Referral ID Status Reason Start Date Expiration Date V isits Requested Visits Authorized [id number] Closed Auto-Generate d Referral 12/03/2021 01/02/2023 1 1 Specialty Diagnoses / Procedures Referred By Contac t Referred To Contact Diagnoses Radiculopathy of lumbar region Lumbar disc herniation Procedures CONSULT TO SPINE SURGERY OFFICE/OUTPATIENT [facility] 60-74 MINUTES Lindy Gunderson PA-C [address] [address] Referral ID Status Reason Start Date Expiration Date Visits Requested Visits Authorized [id number] Authorized PCP Requested Referral 01/14/2022 01/14/2023 1 1 Specialty Diagnoses / Procedures Referred By Contac t Referred To Contact Diagnoses Migraine with aura and without status migrainosus, not intractable (CMS/HCC) Whit Sorensen, NUNU [address] [place] [address] Referral ID Status Reason Start Date Expiration Date V isits Requested Visits Authorized [id number] Pending Review 03/28/2024 09/24/2024 1 1 Additional Source Comments INFORMATION SOURCE (unrecogn ized section and content) DATE CREATED AUTHOR [facility] DATE CREATED AUTHOR AUTHOR'S ORGANIZ ATION 01/29/2022 [facility] DATE CREATED AUTHOR AUTHOR'S ORGANIZ ATION 03/04/2022 [facility] DATE CREATED AUTHOR AUTHOR'S ORGANIZ ATION 07/21/2022 [facility] DATE CREATED AUTHOR AUTHOR'S ORGANIZ ATION 02/13/2023 [facility] DATE CREATED AUTHOR AUTHOR'S ORGANIZ ATION 03/30/2024 [facility] dical [facility] DATE CREATED AUTHOR AUTHOR'S ORGANIZ ATION 03/16/2025 [facility] Source Comments (unrecognize d section and [...] IVCON MRI SPINAL CANAL THORACIC W/O CONTRAST Lazarus Herrera MD [address] [facility] [place] [address] [place] [address] Referral ID Status Reason Start Date Expiration Date V isits Requested Visits Authorized [id number] Closed Auto-Generate d Referral 12/23/2021 06/26/2022 1 [...] SPINE LUMBOSACRAL 2/3 VIEWS Lazarus Johnson MD [address] [facility] [place] [address] Xr Imaging Referral ID Status Reason Start Date Expiration Date V isits Requested Visits Authorized [id number] Closed Auto-Generate d Referral 12/03/2021 01/02/2023 1 1 Reason Comments Med Refill Reason Onset Date Comments Med Refill 02/13/2024 Reason Onset Date Comments Med Refill 03/14/2024 Reason Onset Date Comments Med Refill 03/20/2024 Reason Onset Date Comments Med Refill 09/25/2024 Reason Onset Date Comments Med Refill 09/26/2024 Reason Onset Date Comments Med Refill 10/11/2024 Reason Onset Date Comments Med Refill 12/19/2023 Care Teams (unrecognized sec tion and content) Family Practice Nurse Practitioner Relationship Specialty Start Date End Date Fidel Smith MD [address] [place] [address] PCP - General Family Medicine 08/01/23 Family Practice Nurse Practitioner Relationship Specialty Start Date End Date Fidel Smith MD [address] [place] [address] PCP - General Family Medicine 08/01/23 Family Practice Nurse Practitioner Relationship Specialty Start Date End Date Fidel Smith MD [address] [place] [address] PCP - General Family Medicine 08/01/23 Family Practice Nurse Practitioner Relationship Specialty Start Date End Date Fidel Smith MD [address] [place] [address] PCP - General Family Medicine 08/01/23 Family Practice Nurse Practitioner Relationship Specialty Start Date End Date Fidel Smith MD [address] [place] [address] PCP - General Family Medicine 08/01/23 Family Practice Nurse Practitioner Relationship Specialty Start Date End Date Fidel Smith MD [address] [place] [address] PCP - General Family Medicine 08/01/23 Family Practice Nurse Practitioner Relationship Specialty Start Date End Date Fidel Smith MD [address] [place] [address] PCP - General Family Medicine 08/01/23 Family Practice Nurse Practitioner Relationship Specialty Start Date End Date Fidel Smith MD [address] [place] [address] PCP - General Family Medicine 08/01/23 Family Practice Nurse Practitioner Relationship Specialty Start Date End Date Fidel Smith MD [address] [place] [address] PCP - General Family Medicine 08/01/23 Family Practice Nurse Practitioner Relationship Specialty Start Date End Date Fidel Smith MD [address] [place] [address] PCP - General Family Medicine 08/01/23 Family Practice Nurse Practitioner Relationship Specialty Start Date End Date Fidel Smith MD [address] [place] [address] PCP - General Family Medicine 08/01/23 Family Practice Nurse Practitioner Relationship Specialty Start Date End Date Fidel Smith MD [address] [place] [address] PCP - General Family Medicine 08/01/23 Family Practice Nurse Practitioner Relationship Specialty Start Date End Date Fidel Smith MD [address] [place] [address] PCP - General Family Medicine 08/01/23 Family Practice Nurse Practitioner Relationship Specialty Start Date End Date Fidel Smith MD [address] [place] [address] PCP - General Family Medicine 08/01/23 Family Practice Nurse Practitioner Relationship Specialty Start Date End Date Fidel Smith MD [address] [place] [address] PCP - General Family Medicine 08/01/23 Family Practice Nurse Practitioner Relationship Specialty Start Date End Date Fidel Smith MD [address] [place] [address] PCP - General Family Medicine 08/01/23 Family Practice Nurse Practitioner Relationship Specialty Start Date End Date Fidel Smith MD [address] [place] [address] PCP - General Family Medicine 08/01/23 Family Practice Nurse Practitioner Relationship Specialty Start Date End Date Fidel Smith MD [address] [place] [address] PCP - General Family Medicine 08/01/23 Family Practice Nurse Practitioner Relationship Specialty Start Date End Date Fidel Smith MD [address] [place] [address] PCP - General Family Medicine 08/01/23 Family Practice Nurse Practitioner Relationship Specialty Start Date End Date Fidel Smith MD [address] [place] [address] PCP - General Family Medicine 08/01/23 Family Practice Nurse Practitioner Relationship Specialty Start Date End Date Fidel Smith MD [address] [place] [address] PCP - General Family Medicine 08/01/23 Family Practice Nurse Practitioner Relationship Specialty Start Date End Date Fidel Smith MD [address] [place] [address] PCP - General Family Medicine 08/01/23 Family Practice Nurse Practitioner Relationship Specialty Start Date End Date Fidel Smith MD [address] [place] [address] PCP - General Family Medicine 08/01/23 Family Practice Nurse Practitioner Relationship Specialty Start Date End Date Fidel Smith MD [address] [place] [address] PCP - General Family Medicine 08/01/23 Whit Sorensen, [employer]TER [address] [place] [address] Nurse Practitioner Family Medicine 09/04/24 Family Practice Nurse Practitioner Relationship Specialty Start Date End Date Fidel Smith MD [address] [place] [address] PCP - General Family Medicine 08/01/23 Whit Sorensen, NUNU [address] [place] [phone] Nurse Practitioner Family Medicine 09/04/24 Family Practice Nurse Practitioner Relationship Specialty Start Date End Date Fidel Smith MD [address] [place] [phone] PCP - General Family Medicine 08/01/23 Whit Sorensen NP [address] [place] [phone] Nurse Practitioner Family Medicine 09/04/24 Family Practice Nurse Practitioner Relationship Specialty Start Date End Date Fidel Smith MD [address] [place] [phone] PCP - General Family Medicine 08/01/23 Whit Sorensen NP [address] [place] [phone] Nurse Practitioner Family Medicine 09/04/24 Family Practice Nurse Practitioner Relationship Specialty Start Date End Date Fidel Smith MD [address] [place] [phone] PCP - General Family Medicine 08/01/23 Whit Sorensen NP [address] [place] [phone] Nurse Practitioner Family Medicine 09/04/24 FOR RECORDS PERTAINING TO PATIENTS WHO ARE [...] BE BASED ON THE PRIMARY CLINICAL RECORDS. [facility] provides no warranty or guarantee of the accuracy or completeness of information in this document.
[2025-04-06 08:06] LABS: Glucose Urine UA NEGATIVE (NEGATIVE)
[2025-04-06 08:39] LABS: Cast Seen? NONE SEEN #/LPF (NONE SEEN); Crystals Seen? Seen #/HPF (None Seen)
[2025-04-06 08:40] LABS: Hematocrit 43.7 % (36.0-48.0); Hemoglobin 14.4 g/dL (12.0-16.0); Immature Granulocytes Abs Auto 0.03 10^3/uL (0.00-0.03); Immature Granulocytes Pct Auto 0.4 % (0.0-0.5); Lymphocytes Absolute Auto 1.9 10^3/uL (1.2-3.8); Mean Corpuscular HGB Conc 33.0 g/dL (29.9-35.2); Mean Corpuscular Hemoglobin 30.3 pg (26.7-34.0); Mean Corpuscular Volume 91.8 fL (81.0-99.0); Platelet Count 376 10^3/uL (150-450); Red Blood Count 4.76 10^6/uL (4.20-5.40); White Blood Count 7.7 10^3/uL (4.0-11.0)
[2025-04-06 09:09] LABS: Alanine Aminotransferase 26 U/L (14-59); Albumin Globulin Ratio 1.0; Albumin Level 3.9 g/dL (3.4-5.0); Alkaline Phosphatase 78 U/L (46-116); Anion Gap 14.1; Aspartate Amino Transferase 17 U/L (15-37); Blood Urea Nitrogen 17.0 mg/dL (7.0-18.0); Calcium 9.1 mg/dL (8.5-10.1); Carbon Dioxide 29.8 mmol/L (21.0-32.0); Chloride 103 mmol/L (98-107); Cholesterol 259 mg/dL (<=200); Estimated GFR (African America >60 (>=60 mL/min/1.73m^2); Estimated GFR (Non-African Ame >60 (>=60 mL/min/1.73m^2); Globulin 3.8 g/dL; Glucose 109 mg/dL (74-106); HDL Cholesterol 58 mg/dL (40-60); Potassium 3.9 mmol/L (3.5-5.1); Sodium 143 mmol/L (136-145); Thyroid Stimulating Hormone 3.181 uIU/mL (0.358-3.740); Total Protein 7.7 g/dL (6.4-8.2); Triglycerides 147 mg/dL (<=150); VLDL CHOLESTEROL 29.4 mg/dL
== END 2025-04-06 07:39 | disposition home or self-care (01) ==
PROVIDERS: PCP Nurse Practitioner; Visit Provider Nurse Practitioner
DX: Z00.00 Encounter for general adult medical examination without abnormal findings (principal)
CPT/HCPCS: 36415; 80053; 80061; 81001; 84439; 84443; 85025